=== PATIENT | female | born 1940 | race Caucasian/White ===

== ENCOUNTER → 2017-07-27 10:49 | Outpatient (CLI) | payer MEDICARE, OTHER, SELFPAY | PROVIDERS: PCP Family Medicine; Visit Provider Internal Medicine | DX: S81.802A Unspecified open wound, left lower leg, initial encounter (principal); T81.31XA Disruption of external operation (surgical) wound, not elsewhere classified, initial encounter | CPT/HCPCS: 11042; 97607 ==

== ENCOUNTER → 2017-08-02 10:17 | Outpatient (CLI) | payer MEDICARE, OTHER, SELFPAY | PROVIDERS: PCP Family Medicine; Visit Provider Internal Medicine | DX: S81.802A Unspecified open wound, left lower leg, initial encounter (principal); T81.31XA Disruption of external operation (surgical) wound, not elsewhere classified, initial encounter | CPT/HCPCS: 11042; 97607 ==

== ENCOUNTER → 2017-08-08 08:54 | Outpatient (CLI) | payer MEDICARE, OTHER, SELFPAY | PROVIDERS: PCP Family Medicine; Visit Provider Internal Medicine | DX: S81.802A Unspecified open wound, left lower leg, initial encounter (principal); T81.31XA Disruption of external operation (surgical) wound, not elsewhere classified, initial encounter | CPT/HCPCS: 11042; 97607 ==

== ENCOUNTER → 2017-08-15 10:19 | Outpatient (CLI) | payer MEDICARE, OTHER, SELFPAY | PROVIDERS: PCP Family Medicine; Visit Provider Internal Medicine | DX: S81.802A Unspecified open wound, left lower leg, initial encounter (principal); T81.31XA Disruption of external operation (surgical) wound, not elsewhere classified, initial encounter | CPT/HCPCS: 11042; 97607 ==

== ENCOUNTER → 2017-08-22 10:08 | Outpatient (CLI) | payer MEDICARE, OTHER, SELFPAY ==
--- NOTE | 2017-08-22 | OV.WND_ITS ---
Progress Note Details Patient Name: Clementina Roque Patient Number: [id number] PatientPatientDate: 08/22/2017 Clinician: Catherine Kerr Clinician Cosigner: Shobha Avalos Physician / Specialty Development Consultant: Tigre Vela SUBJECTIVE Chief Complaint This information was obtained from the patient Surgical wound on left lower leg. Allergies peanut (Severity: Severe, Reaction: anaphylaxis), codeine (Reaction: unknown) HPI This information was obtained from the patient 08/22/17. Seen by Dr. Vela. The patient does not report pain or significant drainage associated with the left lower leg surgical wound since her last visit. 08/15/17. Seen by Dr. Vela. The patient does not report pain or significant drainage associated with the left lower leg surgical wound since her last visit. 08/08/17. Seen by Dr. Vela. The patient does not report pain or significant drainage associated with the left lower leg surgical wound since her last visit. 08/02/17. Seen by Dr. Vela. The patient does not report pain or significant drainage associated with the left lower leg surgical wound since her last visit. 07/27/17. Seen by Dr. Vela. The patient does not report pain or significant drainage associated with the left lower leg surgical wound since her last visit. 07/21/2017. Seen by Dr. Vela. The patient is new to our clinic and presents with a left anterior lower leg surgical wound following a Moh's procedure yesterday for excision of a squamous cell carcinoma. She has been referred to our center as this wound will heal by secondary intention due to its size. She does not report significant pain or drainage and does not have a history of diabetes nor PAD. Family History This information was obtained from the patient Unknown History - Maternal Grandparents, Father, Paternal Grandparents, Cancer - Mother, Lung Disease - Mother Social History This information was obtained from the patient Never smoker, Alcohol Use - None, Caffeine Use - 4/day, Children - 4, Lives in - Private home, Marital Status - , Retired Past Medical History This information was obtained from the patient Patient has a medical history of: Atrial fibrillation Arthritis Gout Hypertension Hypercholesterolemia History of Squamous cell carcinoma (multiple) History of Basal cell carcinoma (multiple) Neuropathy Surgical History This information was obtained from the patient Patient has a surgical history of: Mohs procedure (squamous cell carcinoma- left leg) Cholecystectomy Tubal ligation Complaints and Symptoms This information was obtained from the patient Patient complains of: General Notes: I have reviewed and concur with the Review of Systems and Past Family Social History documents completed by the clinician, I have reviewed and concur with the Wound Assessment document completed by the clinician Cardiovascular (Central): Irregular heart beat Cardiovascular (Central/Peripheral): Lower extremity (leg) swelling Hematologic/Lymphatic: Bleeding Tendency Integumentary (Hair/Skin/Nails): Open Sore Prior Wound History: Bleeding Patient denies complaints or symptoms related to: Cardiovascular (Central/Peripheral): Intermittent Claudication, Lower extremity (leg) resting pain Constitutional Symptoms (General Health): Fever Ear/Nose/Mouth/Throat: Hearing Loss / Aid Hematologic/Lymphatic: Bleeding / Clotting Disorders Musculoskeletal: Assistive Devices Neurological: Loss of Protective Sensation Prior Wound History: Pain Psychiatric: Memory Loss Respiratory: Oxygen Use, Shortness of Breath OBJECTIVE Constitutional BP elevated; Afebrile; Alert and in no distress. Well developed. Alert. Clean appearing.. Height/Length: 67 in (170.18 cm), Weight: 193.5 lbs (87.95 kgs), BMI: 30.3, Temperature: 96.6 ?F (35.89 ?C), Pulse: 62 bpm, Respiratory Rate: 18 breaths/min, Blood Pressure: 173/85 mmHg, Pulse Oximetry: 96 %. Ears, Nose, Mouth, and Throat: No clinically significant hearing loss on informal examination. Cardiovascular: Affected extremity exhibits no peripheral edema or cyanosis, is warm, and is well perfused. Capillary refill is less than 2 seconds. Integumentary (Hair, Skin) No periwound erythema, warmth, or significant drainage. No periwound rashes appreciated or noted otherwise.. Refer to appropriate clinician wound documentation for this visit; left lower leg wound extends to subcut with base partially covered with pink granulation, remainder fibrin and slough; improved in terms of size and epithelialization. Wound #1 Left Leg is an acute Full Thickness Surgical Wound and has received a status of Not Healed. Subsequent wound encounter measurements are 2cm length x 2.1cm width x 0.1cm depth, with an area of 4.2 sq cm and a volume of 0.42 cubic cm. Adipose is exposed. Hypergranulation was noted. No tunneling has been noted. No sinus tract has been noted. No undermining has been noted. There is a moderate amount of sero-sanguineous drainage noted which has no odor. The patient reports no wound pain due to the wound being insensate. The wound margin is attached. Wound bed has Yes epithelialization, No eschar, Yes slough, Yes bright red, pink, firm granulation. The periwound skin texture is normal. The periwound skin moisture is normal. The periwound skin color is normal. The temperature of the periwound skin is WNL. Periwound skin does not exhibit signs or symptoms of infection. Local Pulse is Palpable. Neurological: Cranial nerves grossly intact with symmetric function normal by informal observation.. ASSESSMENT Active Problems ICD-10 (Encounter Diagnosis) S81.802D - Unspecified open wound, left lower leg, subsequent encounter (Encounter Diagnosis) T81.31XD - Disruption of external operation (surgical) wound, not elsewhere classified, subsequent encounter PROCEDURES Wound #1 Wound #1 (Surgical Wound) is located on the left leg. A skin/subcutaneous tissue level surgical debridement with a total area debrided of 4.2 sq cm was performed by Tigre Vela MD. Subcutaneous was removed along with devitalized tissue: slough. The following instrument(s) were used: curette. Pain control was achieved using 4% Lido. A time out was conducted prior to the start of the procedure. A minimal amount of bleeding was controlled with pressure. The procedure was tolerated well with a loss of sensation throughout and a loss of sensation following the procedure. Post Debridement Measurements: 2cm length x 2.1cm width x 0.2cm depth; with an area of 4.2 sq cm and a volume of 0.84 cubic cm; Wound #1 (Surgical Wound) is located on the left leg. A Disposable Wound Vac Application < 50 Sq Cm procedure was performed for the lower left extremity by Tigre Vela MD. A time out was conducted prior to the start of the procedure. The procedure was tolerated well. General Notes: JEFF applied 4x8. Additional Information Muscle fascia or bone removed and sent to pathology?: No PLAN Wound Orders: Wound #1 Left Leg Anesthetic Topical Xylocaine to wound bed. - In clinic only. Cleanser Cleanse Wound: - Normal saline and gauze in clinic. May Shower With Negative Pressure - Keep dry use shower boot. May disconnect JEFF during shower then reconnect. Dressings Cover and secure with: - JEFF 4x8. Change Dressing: - Leave in place until next visit. Additional Orders: Follow-Up Appointments Return Appointment: - - One week for JEFF change. Other information: If you develop fever, chills, increased pain, drainage, redness or swelling please call our office. If after hours, respond to the ER. Should you experience any significant changes in your wound(s) or have any questions regarding your home care instructions please contact the wound center @ [phone]. If after hours, contact your primary care physician or go to the hospital emergency room. Scribing Attestation I attest, as the nurse, that I scribed these orders for the physician. I've reviewed the clinician's documentation and agree with the evaluation and plan as written. In addition the patient's wound demonstrates evidence of non-viable devitalized tissue which will continue to benefit from sharp debridement to help promote granulation and expedite healing. Negative pressure wound therapy will be utilized to facilitate granulation and removal of exudate and infectious material with the goal of expediting wound healing. Electronic Signature(s) Signed By: Date: Tigre Vela MD 08/22/2017 14:23:23 Entered By: Tigre Vela on 08/22/2017 14:17:56
== END ==
PROVIDERS: PCP Family Medicine; Visit Provider Internal Medicine
DX: S81.802A Unspecified open wound, left lower leg, initial encounter (principal); T81.31XA Disruption of external operation (surgical) wound, not elsewhere classified, initial encounter
CPT/HCPCS: 11042; 97607

== ENCOUNTER → 2017-08-29 15:30 | Outpatient (CLI) | payer MEDICARE, OTHER, SELFPAY ==
--- NOTE | 2017-08-29 | OV.WND_ITS ---
Progress Note Details Patient Name: Clementina Roque Patient Number: [id number] PatientPatientDate: 08/29/2017 Clinician: Layla Crain Clinician Cosigner: Shobha Avalos Physician / Biometrics Instructor: Dhruv Piedra SUBJECTIVE Chief Complaint This information was obtained from the patient Surgical wound on left lower leg. Allergies peanut (Severity: Severe, Reaction: anaphylaxis), codeine (Reaction: unknown) HPI This information was obtained from the patient 08/29/17. Seen by Jose Manuel Piedra PA-C. The patient reports no increase in drainage form the left lower leg wound. 08/22/17. Seen by Dr. Vela. The patient does not report pain or significant drainage associated with the left lower leg surgical wound since her last visit. 08/15/17. Seen by Dr. Vela. The patient does not report pain or significant drainage associated with the left lower leg surgical wound since her last visit. 08/08/17. Seen by Dr. Vela. The patient does not report pain or significant drainage associated with the left lower leg surgical wound since her last visit. 08/02/17. Seen by Dr. Vela. The patient does not report pain or significant drainage associated with the left lower leg surgical wound since her last visit. 07/27/17. Seen by Dr. Vela. The patient does not report pain or significant drainage associated with the left lower leg surgical wound since her last visit. 07/21/2017. Seen by Dr. Vela. The patient is new to our clinic and presents with a left anterior lower leg surgical wound following a Moh's procedure yesterday for excision of a squamous cell carcinoma. She has been referred to our center as this wound will heal by secondary intention due to its size. She does not report significant pain or drainage and does not have a history of diabetes nor PAD. Family History This information was obtained from the patient Unknown History - Maternal Grandparents, Father, Paternal Grandparents, Cancer - Mother, Lung Disease - Mother Social History This information was obtained from the patient Never smoker, Alcohol Use - None, Caffeine Use - 4/day, Children - 4, Lives in - Private home, Marital Status - , Retired Past Medical History This information was obtained from the patient Patient has a medical history of: Atrial fibrillation Arthritis Gout Hypertension Hypercholesterolemia History of Squamous cell carcinoma (multiple) History of Basal cell carcinoma (multiple) Neuropathy Complaints and Symptoms This information was obtained from the patient Patient complains of: General Notes: I have reviewed and concur with the Review of Systems and Past Family Social History documents completed by the clinician, I have reviewed and concur with the Wound Assessment document completed by the clinician Cardiovascular (Central): Irregular heart beat Cardiovascular (Central/Peripheral): Lower extremity (leg) swelling Hematologic/Lymphatic: Bleeding Tendency Integumentary (Hair/Skin/Nails): Open Sore Prior Wound History: Bleeding Patient denies complaints or symptoms related to: Cardiovascular (Central/Peripheral): Intermittent Claudication, Lower extremity (leg) resting pain Constitutional Symptoms (General Health): Fever Ear/Nose/Mouth/Throat: Hearing Loss / Aid Hematologic/Lymphatic: Bleeding / Clotting Disorders Musculoskeletal: Assistive Devices Neurological: Loss of Protective Sensation Prior Wound History: Pain Psychiatric: Memory Loss Respiratory: Oxygen Use, Shortness of Breath OBJECTIVE Constitutional Vital signs reviewed and noted. Well developed, lucid, and in no acute distress. . Height/Length: 67 in (170.18 cm), Weight: 193.5 lbs (87.95 kgs), BMI: 30.3, Temperature: 98.2 ?F (36.78 ?C), Pulse: 68 bpm, Respiratory Rate: 18 breaths/min, Blood Pressure: 141/87 mmHg, Pulse Oximetry: 96 %. Eyes: Conjunctiva clear and without icterus. Pupils are equal and round; EOM's intact. Ears, Nose, Mouth, and Throat: Grossly intact. Respiratory: No respiratory distress. Even respirations and without use of accessory muscles.. Integumentary (Hair, Skin) No erythema, warmth, rash, blistering, or drainage in the periwound area/s. Refer to appropriate clinician wound documentation for this visit. Ulcer extends to level of skin. . Wound #1 Left Leg is an acute Full Thickness Surgical Wound and has received a status of Not Healed. Subsequent wound encounter measurements are 1.9cm length x 2cm width x 0.2cm depth, with an area of 3.8 sq cm and a volume of 0.76 cubic cm. Adipose is exposed. Hypergranulation was noted. No tunneling has been noted. No sinus tract has been noted. No undermining has been noted. There is a moderate amount of sero-sanguineous drainage noted which has no odor. The patient reports no wound pain due to the wound being insensate. The wound margin is attached. Wound bed has Yes epithelialization, No eschar, Yes slough, Yes bright red, pink, firm granulation. The periwound skin texture is normal. The periwound skin moisture is normal. The periwound skin color is normal. The temperature of the periwound skin is WNL. Periwound skin does not exhibit signs or symptoms of infection. Local Pulse is Palpable. Psychiatric: Judgement and insight: Normal affect with normal thought pattern. Alert and oriented 3/3. Memory grossly intact.. Normal affect. Mood appropriate.. ASSESSMENT Active Problems ICD-10 (Encounter Diagnosis) S81.802D - Unspecified open wound, left lower leg, subsequent encounter (Encounter Diagnosis) T81.31XD - Disruption of external operation (surgical) wound, not elsewhere classified, subsequent encounter PLAN Wound Orders: Wound #1 Left Leg Anesthetic Topical Xylocaine to wound bed. - In clinic only. Cleanser Cleanse Wound: - Normal saline and gauze in clinic. May Shower. - Please continue to use cast protector when showering. Dressings Cover and secure with: - Aquacel bordered foam. Change Dressing: - Every other day. Additional Orders: Follow-Up Appointments Return Appointment: - - One week. Other information: If you develop fever, chills, increased pain, drainage, redness or swelling please call our office. If after hours, respond to the ER. Should you experience any significant changes in your wound(s) or have any questions regarding your home care instructions please contact the wound center @ [phone]. If after hours, contact your primary care physician or go to the hospital emergency room. Scribing Attestation I attest, as the nurse, that I scribed these orders for the physician. I've reviewed the clinician's documentation and agree with the evaluation and plan as written. In addition I am discontinuing NPWT today as the tissue in the wound bed is bordering on hypergranulation. Electronic Signature(s) Signed By: Date: Jose Manuel Piedra 09/03/2017 13:49:03 Entered By: Jose Manuel Piedra on 09/03/2017 13:23:49
== END ==
PROVIDERS: PCP Family Medicine; Visit Provider Physician Assistant
DX: S81.802D Unspecified open wound, left lower leg, subsequent encounter (principal); T81.31XD Disruption of external operation (surgical) wound, not elsewhere classified, subsequent encounter
CPT/HCPCS: 99212

== ENCOUNTER → 2017-09-05 10:04 | Outpatient (CLI) | payer MEDICARE, OTHER, SELFPAY ==
--- NOTE | 2017-09-05 | OV.WND_ITS ---
Progress Note Details Patient Name: Clementina Roque Patient Number: [id number] PatientPatientDate: 09/05/2017 Clinician: Kimmie Case Clinician Cosigner: Catherine Kerr Physician / Trim Attacher: Tigre Vela SUBJECTIVE Chief Complaint This information was obtained from the patient Surgical wound on left lower leg. Allergies peanut (Severity: Severe, Reaction: anaphylaxis), codeine (Reaction: unknown) HPI This information was obtained from the patient 09/05/17. Seen by Dr. Vela. The patient does not report pain or significant drainage associated with the left lower leg surgical wound since her last visit. 08/29/17. Seen by Jose Manuel Piedra PA-C. The patient reports no increase in drainage form the left lower leg wound. 08/22/17. Seen by Dr. Vela. The patient does not report pain or significant drainage associated with the left lower leg surgical wound since her last visit. 08/15/17. Seen by Dr. Vela. The patient does not report pain or significant drainage associated with the left lower leg surgical wound since her last visit. 08/08/17. Seen by Dr. Vela. The patient does not report pain or significant drainage associated with the left lower leg surgical wound since her last visit. 08/02/17. Seen by Dr. Vela. The patient does not report pain or significant drainage associated with the left lower leg surgical wound since her last visit. 07/27/17. Seen by Dr. Vela. The patient does not report pain or significant drainage associated with the left lower leg surgical wound since her last visit. 07/21/2017. Seen by Dr. Vela. The patient is new to our clinic and presents with a left anterior lower leg surgical wound following a Moh's procedure yesterday for excision of a squamous cell carcinoma. She has been referred to our center as this wound will heal by secondary intention due to its size. She does not report significant pain or drainage and does not have a history of diabetes nor PAD. Past Medical History This information was obtained from the patient Patient has a medical history of: Atrial fibrillation Arthritis Gout Hypertension Hypercholesterolemia History of Squamous cell carcinoma (multiple) History of Basal cell carcinoma (multiple) Neuropathy Complaints and Symptoms This information was obtained from the patient Patient complains of: General Notes: I have reviewed and concur with the Review of Systems and Past Family Social History documents completed by the clinician, I have reviewed and concur with the Wound Assessment document completed by the clinician Cardiovascular (Central): Irregular heart beat Cardiovascular (Central/Peripheral): Lower extremity (leg) swelling Hematologic/Lymphatic: Bleeding Tendency Integumentary (Hair/Skin/Nails): Open Sore Prior Wound History: Bleeding Patient denies complaints or symptoms related to: Cardiovascular (Central/Peripheral): Intermittent Claudication, Lower extremity (leg) resting pain Constitutional Symptoms (General Health): Fever Ear/Nose/Mouth/Throat: Hearing Loss / Aid Hematologic/Lymphatic: Bleeding / Clotting Disorders Musculoskeletal: Assistive Devices Neurological: Loss of Protective Sensation Prior Wound History: Pain Psychiatric: Memory Loss Respiratory: Oxygen Use, Shortness of Breath OBJECTIVE Constitutional BP elevated; Afebrile; Alert and in no distress. Well developed. Alert. Clean appearing.. Height/Length: 67 in (170.18 cm), Weight: 197.1 lbs (89.59 kgs), BMI: 30.9, Temperature: 97.2 ?F (36.22 ?C), Pulse: 60 bpm, Respiratory Rate: 18 breaths/min, Blood Pressure: 152/77 mmHg, Pulse Oximetry: 99 %. Ears, Nose, Mouth, and Throat: No clinically significant hearing loss on informal examination. Respiratory: No respiratory distress. Even respirations and without use of accessory muscles.. Cardiovascular: Pedal pulses 2+ on affected limb. Affected extremity exhibits no peripheral edema or cyanosis, is warm, and is well perfused. Capillary refill is less than 2 seconds. Integumentary (Hair, Skin) Mild periwound erythema without warmth. Refer to appropriate clinician wound documentation for this visit; left lower leg wound extends to subcut with base partially covered with pink granulation, remainder fibrin and slough. Wound #1 Left Leg is an acute Full Thickness Surgical Wound and has received a status of Not Healed. Subsequent wound encounter measurements are 1.2cm length x 1.1cm width x 0.1cm depth, with an area of 1.32 sq cm and a volume of 0.132 cubic cm. Hypergranulation was noted. No tunneling has been noted. No sinus tract has been noted. No undermining has been noted. There is a small amount of sero-sanguineous drainage noted which has no odor. The patient reports no wound pain due to the wound being insensate. The wound margin is attached. Wound bed has Yes epithelialization, No eschar, Yes slough, Yes bright red, pink, firm granulation. The periwound skin texture is normal. The periwound skin moisture is normal. The periwound skin color is normal. The temperature of the periwound skin is WNL. Periwound skin does not exhibit signs or symptoms of infection. Local Pulse is Palpable. Neurological: Cranial nerves grossly intact with symmetric function normal by informal observation.. ASSESSMENT Active Problems ICD-10 (Encounter Diagnosis) S81.802D - Unspecified open wound, left lower leg, subsequent encounter (Encounter Diagnosis) T81.31XD - Disruption of external operation (surgical) wound, not elsewhere classified, subsequent encounter (Encounter Diagnosis) L92.9 - Granulomatous disorder of the skin and subcutaneous tissue, unspecified PROCEDURES Wound #1 Wound #1 (Surgical Wound) is located on the left leg. A Chemical Cauterization procedure was performed by Tigre Vela MD. General Notes: Silver Nitrate applied. PLAN Wound Orders: Wound #1 Left Leg Anesthetic Topical Xylocaine to wound bed. - In clinic only. Cleanser Cleanse Wound: - Normal saline and gauze in clinic. May Shower. - Please continue to use cast protector when showering. Dressings Cover and secure with: - Aquacel bordered foam. Change Dressing: - Every other day. Additional Orders: Follow-Up Appointments Return Appointment: - - One week. Other information: If you develop fever, chills, increased pain, drainage, redness or swelling please call our office. If after hours, respond to the ER. Should you experience any significant changes in your wound(s) or have any questions regarding your home care instructions please contact the wound center @ [phone]. If after hours, contact your primary care physician or go to the hospital emergency room. Scribing Attestation I attest, as the nurse, that I scribed these orders for the physician. I've reviewed the clinician's documentation and agree with the evaluation and plan as written. In addition the presence of hypergranulation tissue in the wound was not an expected finding and was cauterized with silver nitrate. The patient's dressing regimen will be modified appropriately to attempt to reduce the formation of further hypergranulation tissue. Electronic Signature(s) Signed By: Date: Tigre Vela MD 09/06/2017 08:47:14 Entered By: Tigre Vela on 09/05/2017 12:07:03
== END ==
PROVIDERS: PCP Family Medicine; Visit Provider Internal Medicine
DX: S81.802A Unspecified open wound, left lower leg, initial encounter (principal); T81.31XA Disruption of external operation (surgical) wound, not elsewhere classified, initial encounter; L92.9 Granulomatous disorder of the skin and subcutaneous tissue, unspecified
CPT/HCPCS: 17250

== ENCOUNTER → 2017-09-12 10:57 | Outpatient (CLI) | payer MEDICARE, OTHER, SELFPAY ==
--- NOTE | 2017-09-12 | OV.WND_ITS ---
Progress Note Details Patient Name: Clementina Roque Patient Number: [id number] PatientPatientDate: 09/12/2017 Clinician: Shobha Avalos Clinician Cosigner: Catherine Kerr Physician / Graphic Manager: Tigre Vela SUBJECTIVE Chief Complaint This information was obtained from the patient Surgical wound on left lower leg. Allergies peanut (Severity: Severe, Reaction: anaphylaxis), codeine (Reaction: unknown) HPI This information was obtained from the patient 09/12/17. Seen by Dr. Vela. The patient does not report pain or significant drainage associated with the left lower leg surgical wound since her last visit. 09/05/17. Seen by Dr. Vela. The patient does not report pain or significant drainage associated with the left lower leg surgical wound since her last visit. 08/29/17. Seen by Jose Manuel Piedra PA-C. The patient reports no increase in drainage form the left lower leg wound. 08/22/17. Seen by Dr. Vela. The patient does not report pain or significant drainage associated with the left lower leg surgical wound since her last visit. 08/15/17. Seen by Dr. Vela. The patient does not report pain or significant drainage associated with the left lower leg surgical wound since her last visit. 08/08/17. Seen by Dr. Vela. The patient does not report pain or significant drainage associated with the left lower leg surgical wound since her last visit. 08/02/17. Seen by Dr. Vela. The patient does not report pain or significant drainage associated with the left lower leg surgical wound since her last visit. 07/27/17. Seen by Dr. Vela. The patient does not report pain or significant drainage associated with the left lower leg surgical wound since her last visit. 07/21/2017. Seen by Dr. Vela. The patient is new to our clinic and presents with a left anterior lower leg surgical wound following a Moh's procedure yesterday for excision of a squamous cell carcinoma. She has been referred to our center as this wound will heal by secondary intention due to its size. She does not report significant pain or drainage and does not have a history of diabetes nor PAD. Past Medical History This information was obtained from the patient Patient has a medical history of: Atrial fibrillation Arthritis Gout Hypertension Hypercholesterolemia History of Squamous cell carcinoma (multiple) History of Basal cell carcinoma (multiple) Neuropathy Complaints and Symptoms This information was obtained from the patient Patient complains of: General Notes: I have reviewed and concur with the Review of Systems and Past Family Social History documents completed by the clinician, I have reviewed and concur with the Wound Assessment document completed by the clinician Cardiovascular (Central): Irregular heart beat Cardiovascular (Central/Peripheral): Lower extremity (leg) swelling Hematologic/Lymphatic: Bleeding Tendency Integumentary (Hair/Skin/Nails): Open Sore Prior Wound History: Bleeding Patient denies complaints or symptoms related to: Cardiovascular (Central/Peripheral): Intermittent Claudication, Lower extremity (leg) resting pain Constitutional Symptoms (General Health): Fever Ear/Nose/Mouth/Throat: Hearing Loss / Aid Hematologic/Lymphatic: Bleeding / Clotting Disorders Musculoskeletal: Assistive Devices Neurological: Loss of Protective Sensation Prior Wound History: Pain Psychiatric: Memory Loss Respiratory: Oxygen Use, Shortness of Breath OBJECTIVE Constitutional BP elevated; Afebrile; Alert and in no distress. Well developed. Alert. Clean appearing.. Height/Length: 67 in (170.18 cm), Weight: 197.3 lbs (89.68 kgs), BMI: 30.9, Temperature: 98.0 ?F (36.67 ?C), Pulse: 61 bpm, Respiratory Rate: 18 breaths/min, Blood Pressure: 157/80 mmHg, Pulse Oximetry: 97 %. Ears, Nose, Mouth, and Throat: No clinically significant hearing loss on informal examination. Respiratory: No respiratory distress. Even respirations and without use of accessory muscles.. Integumentary (Hair, Skin) No periwound erythema, warmth, or significant drainage. No periwound rashes appreciated or noted otherwise.. Refer to appropriate clinician wound documentation for this visit; left lower leg wound extends to subcut with base covered with red hypergranulation, remainder fibrin and slough. Wound #1 Left Leg is an acute Full Thickness Surgical Wound and has received a status of Not Healed. Subsequent wound encounter measurements are 1cm length x 1cm width x 0.1cm depth, with an area of 1 sq cm and a volume of 0.1 cubic cm. Hypergranulation was noted. No tunneling has been noted. No sinus tract has been noted. No undermining has been noted. There is a scant amount of sero-sanguineous drainage noted which has no odor. The patient reports no wound pain due to the wound being insensate. The wound margin is attached. Wound bed has Yes epithelialization, No eschar, Yes slough, Yes bright red, pink , firm granulation. The periwound skin texture is normal. The periwound skin moisture is normal. The periwound skin color is normal. The temperature of the periwound skin is WNL. Periwound skin does not exhibit signs or symptoms of infection. Local Pulse is Palpable. ASSESSMENT Active Problems ICD-10 (Encounter Diagnosis) S81.802D - Unspecified open wound, left lower leg, subsequent encounter (Encounter Diagnosis) T81.31XD - Disruption of external operation (surgical) wound, not elsewhere classified, subsequent encounter (Encounter Diagnosis) L92.9 - Granulomatous disorder of the skin and subcutaneous tissue, unspecified PROCEDURES Wound #1 Wound #1 (Surgical Wound) is located on the left leg. A Chemical Cauterization procedure was performed by Tigre Vela MD. General Notes: Silver Nitrate applied. PLAN Wound Orders: Wound #1 Left Leg Anesthetic Topical Xylocaine to wound bed. - In clinic only. Cleanser Cleanse Wound: - Normal saline and gauze in clinic. May Shower. - Please continue to use cast protector when showering. Dressings Cover and secure with: - bordered foam. Change Dressing: - Every other day. Additional Orders: Follow-Up Appointments Return Appointment: - - One week. Other information: If you develop fever, chills, increased pain, drainage, redness or swelling please call our office. If after hours, respond to the ER. Should you experience any significant changes in your wound(s) or have any questions regarding your home care instructions please contact the wound center @ [phone]. If after hours, contact your primary care physician or go to the hospital emergency room. Scribing Attestation I attest, as the nurse, that I scribed these orders for the physician. In addition the presence of hypergranulation tissue in the wound was not an expected finding and was cauterized with silver nitrate. The patient's dressing regimen will be modified appropriately to attempt to reduce the formation of further hypergranulation tissue. Electronic Signature(s) Signed By: Date: Tigre Vela MD 09/14/2017 08:46:21 Entered By: Tigre Vela on 09/12/2017 09:42:26
== END ==
PROVIDERS: PCP Family Medicine; Visit Provider Internal Medicine
DX: S81.802D Unspecified open wound, left lower leg, subsequent encounter (principal); T81.31XD Disruption of external operation (surgical) wound, not elsewhere classified, subsequent encounter; L92.9 Granulomatous disorder of the skin and subcutaneous tissue, unspecified
CPT/HCPCS: 17250

== ENCOUNTER → 2017-09-20 09:03 | Outpatient (CLI) | payer MEDICARE, OTHER, SELFPAY ==
--- NOTE | 2017-09-20 | OV.WND_ITS ---
Progress Note Details Patient Name: Clementina Roque Patient Number: [id number] PatientPatientDate: 09/20/2017 Clinician: Kimmie Case Physician / Fire Ranger: Tigre Vela SUBJECTIVE Chief Complaint This information was obtained from the patient Surgical wound on left lower leg. Allergies peanut (Severity: Severe, Reaction: anaphylaxis), codeine (Reaction: unknown) HPI This information was obtained from the patient 09/20/17. Seen by Dr. Vela. The patient does not report pain or significant drainage associated with the left lower leg surgical wound since her last visit. 09/12/17. Seen by Dr. Vela. The patient does not report pain or significant drainage associated with the left lower leg surgical wound since her last visit. 09/05/17. Seen by Dr. Vela. The patient does not report pain or significant drainage associated with the left lower leg surgical wound since her last visit. 08/29/17. Seen by Jose Manuel Piedra PA-C. The patient reports no increase in drainage form the left lower leg wound. 08/22/17. Seen by Dr. Vela. The patient does not report pain or significant drainage associated with the left lower leg surgical wound since her last visit. 08/15/17. Seen by Dr. Vela. The patient does not report pain or significant drainage associated with the left lower leg surgical wound since her last visit. 08/08/17. Seen by Dr. Vela. The patient does not report pain or significant drainage associated with the left lower leg surgical wound since her last visit. 08/02/17. Seen by Dr. Vela. The patient does not report pain or significant drainage associated with the left lower leg surgical wound since her last visit. 07/27/17. Seen by Dr. Vela. The patient does not report pain or significant drainage associated with the left lower leg surgical wound since her last visit. 07/21/2017. Seen by Dr. Vela. The patient is new to our clinic and presents with a left anterior lower leg surgical wound following a Moh's procedure yesterday for excision of a squamous cell carcinoma. She has been referred to our center as this wound will heal by secondary intention due to its size. She does not report significant pain or drainage and does not have a history of diabetes nor PAD. Past Medical History This information was obtained from the patient Patient has a medical history of: Atrial fibrillation Arthritis Gout Hypertension Hypercholesterolemia History of Squamous cell carcinoma (multiple) History of Basal cell carcinoma (multiple) Neuropathy Complaints and Symptoms This information was obtained from the patient Patient complains of: General Notes: I have reviewed and concur with the Review of Systems and Past Family Social History documents completed by the clinician, I have reviewed and concur with the Wound Assessment document completed by the clinician Cardiovascular (Central): Irregular heart beat Cardiovascular (Central/Peripheral): Lower extremity (leg) swelling Hematologic/Lymphatic: Bleeding Tendency Integumentary (Hair/Skin/Nails): Open Sore Prior Wound History: Bleeding Patient denies complaints or symptoms related to: Cardiovascular (Central/Peripheral): Intermittent Claudication, Lower extremity (leg) resting pain Constitutional Symptoms (General Health): Fever Ear/Nose/Mouth/Throat: Hearing Loss / Aid Hematologic/Lymphatic: Bleeding / Clotting Disorders Musculoskeletal: Assistive Devices Neurological: Loss of Protective Sensation Prior Wound History: Pain Psychiatric: Memory Loss Respiratory: Oxygen Use, Shortness of Breath OBJECTIVE Constitutional BP elevated; Afebrile; Alert and in no distress. Well developed. Alert. Clean appearing.. Height/Length: 67 in (170.18 cm), Weight: 197.3 lbs (89.68 kgs), BMI: 30.9, Temperature: 98.1 ?F (36.72 ?C), Pulse: 57 bpm, Respiratory Rate: 17 breaths/min, Blood Pressure: 175/80 mmHg, Pulse Oximetry: 97 %. Ears, Nose, Mouth, and Throat: No clinically significant hearing loss on informal examination. Integumentary (Hair, Skin) No periwound erythema, warmth, or significant drainage. No periwound rashes appreciated or noted otherwise.. Refer to appropriate clinician wound documentation for this visit; left lower leg wound extends to subcut with base mostly covered with red hypergranulation, remainder fibrin and slough. Wound #1 Left Leg is an acute Full Thickness Surgical Wound and has received a status of Not Healed. Subsequent wound encounter measurements are 0.9cm length x 0.8cm width x 0.1cm depth, with an area of 0.72 sq cm and a volume of 0.072 cubic cm. Hypergranulation was noted. No tunneling has been noted. No sinus tract has been noted. No undermining has been noted. There is a scant amount of seropurulent drainage noted which has no odor. The patient reports no wound pain due to the wound being insensate. The wound margin is attached. Wound bed has Yes epithelialization, No eschar, Yes slough, Yes bright red, pink , firm granulation. The periwound skin texture is normal. The periwound skin moisture is normal. The periwound skin color is normal. The temperature of the periwound skin is WNL. Periwound skin does not exhibit signs or symptoms of infection. Local Pulse is Palpable. Neurological: Cranial nerves grossly intact with symmetric function normal by informal observation.. ASSESSMENT Active Problems ICD-10 (Encounter Diagnosis) S81.802D - Unspecified open wound, left lower leg, subsequent encounter (Encounter Diagnosis) T81.31XD - Disruption of external operation (surgical) wound, not elsewhere classified, subsequent encounter (Encounter Diagnosis) L92.9 - Granulomatous disorder of the skin and subcutaneous tissue, unspecified PROCEDURES Wound #1 Wound #1 (Surgical Wound) is located on the left leg. A Chemical Cauterization procedure was performed by Tigre Vela MD. General Notes: Silver Nitrate applied. PLAN Wound Orders: Wound #1 Left Leg Anesthetic Topical Xylocaine to wound bed. - In clinic only. Cleanser Cleanse Wound: - Normal saline and gauze in clinic. May Shower. - Please continue to use cast protector when showering. Dressings Cover and secure with: - bordered foam. Change Dressing: - Every other day. Additional Orders: Follow-Up Appointments Return Appointment: - - Two week Other information: If you develop fever, chills, increased pain, drainage, redness or swelling please call our office. If after hours, respond to the ER. Should you experience any significant changes in your wound(s) or have any questions regarding your home care instructions please contact the wound center @ [phone]. If after hours, contact your primary care physician or go to the hospital emergency room. Scribing Attestation I attest, as the nurse, that I scribed these orders for the physician. I've reviewed the clinician's documentation and agree with the evaluation and plan as written. In addition the presence of hypergranulation tissue in the wound was not an expected finding and was cauterized with silver nitrate. The patient's dressing regimen will be modified appropriately to attempt to reduce the formation of further hypergranulation tissue. Electronic Signature(s) Signed By: Date: Tigre Vela MD 09/20/2017 16:09:26 Entered By: Tigre Vela on 09/20/2017 11:28:50
== END ==
PROVIDERS: PCP Family Medicine; Visit Provider Internal Medicine
DX: S81.802A Unspecified open wound, left lower leg, initial encounter (principal); T81.31XA Disruption of external operation (surgical) wound, not elsewhere classified, initial encounter; L92.9 Granulomatous disorder of the skin and subcutaneous tissue, unspecified
CPT/HCPCS: 17250

== ENCOUNTER → 2017-10-04 11:17 | Outpatient (CLI) | payer MEDICARE, OTHER, SELFPAY ==
--- NOTE | 2017-10-04 | OV.WND_ITS ---
Progress Note Details Patient Name: Clementina Roque Patient Number: [id number] PatientPatientDate: 10/04/2017 Clinician: Catherine Kerr Clinician Cosigner: Shobha Avalos Physician / Crm Marketing Manager: Tigre Vela SUBJECTIVE Chief Complaint This information was obtained from the patient Surgical wound on left lower leg. Allergies peanut (Severity: Severe, Reaction: anaphylaxis), codeine (Reaction: unknown) HPI This information was obtained from the patient 10/04/17. Seen by Dr. Vela. The patient does not report pain or significant drainage associated with the left lower leg surgical wound since her last visit. 09/20/17. Seen by Dr. Vela. The patient does not report pain or significant drainage associated with the left lower leg surgical wound since her last visit. 09/12/17. Seen by Dr. Vela. The patient does not report pain or significant drainage associated with the left lower leg surgical wound since her last visit. 09/05/17. Seen by Dr. Vela. The patient does not report pain or significant drainage associated with the left lower leg surgical wound since her last visit. 08/29/17. Seen by Jose Manuel Piedra PA-C. The patient reports no increase in drainage form the left lower leg wound. 08/22/17. Seen by Dr. Vela. The patient does not report pain or significant drainage associated with the left lower leg surgical wound since her last visit. 08/15/17. Seen by Dr. Vela. The patient does not report pain or significant drainage associated with the left lower leg surgical wound since her last visit. 08/08/17. Seen by Dr. Vela. The patient does not report pain or significant drainage associated with the left lower leg surgical wound since her last visit. 08/02/17. Seen by Dr. Vela. The patient does not report pain or significant drainage associated with the left lower leg surgical wound since her last visit. 07/27/17. Seen by Dr. Vela. The patient does not report pain or significant drainage associated with the left lower leg surgical wound since her last visit. 07/21/2017. Seen by Dr. Vela. The patient is new to our clinic and presents with a left anterior lower leg surgical wound following a Moh's procedure yesterday for excision of a squamous cell carcinoma. She has been referred to our center as this wound will heal by secondary intention due to its size. She does not report significant pain or drainage and does not have a history of diabetes nor PAD. Past Medical History This information was obtained from the patient Patient has a medical history of: Atrial fibrillation Arthritis Gout Hypertension Hypercholesterolemia History of Squamous cell carcinoma (multiple) History of Basal cell carcinoma (multiple) Neuropathy Complaints and Symptoms This information was obtained from the patient Patient complains of: General Notes: I have reviewed and concur with the Review of Systems and Past Family Social History documents completed by the clinician, I have reviewed and concur with the Wound Assessment document completed by the clinician Cardiovascular (Central): Irregular heart beat Cardiovascular (Central/Peripheral): Lower extremity (leg) swelling Hematologic/Lymphatic: Bleeding Tendency Integumentary (Hair/Skin/Nails): Open Sore Prior Wound History: Bleeding Patient denies complaints or symptoms related to: Cardiovascular (Central/Peripheral): Intermittent Claudication, Lower extremity (leg) resting pain Constitutional Symptoms (General Health): Fever Ear/Nose/Mouth/Throat: Hearing Loss / Aid Hematologic/Lymphatic: Bleeding / Clotting Disorders Musculoskeletal: Assistive Devices Neurological: Loss of Protective Sensation Prior Wound History: Pain Psychiatric: Memory Loss Respiratory: Oxygen Use, Shortness of Breath OBJECTIVE Constitutional BP elevated; Afebrile; Alert and in no distress. Well developed. Alert. Clean appearing.. Height/Length: 67 in (170.18 cm), Weight: 199.7 lbs (90.77 kgs), BMI: 31.3, Temperature: 98.0 ?F (36.67 ?C), Pulse: 59 bpm, Respiratory Rate: 17 breaths/min, Blood Pressure: 159/77 mmHg, Pulse Oximetry: 95 %. Ears, Nose, Mouth, and Throat: No clinically significant hearing loss on informal examination. Integumentary (Hair, Skin) No periwound erythema, warmth, or significant drainage. No periwound rashes appreciated or noted otherwise.. Refer to appropriate clinician wound documentation for this visit. Wound #1 Left Leg is an acute Full Thickness Surgical Wound and has received a status of Not Healed. Subsequent wound encounter measurements are 0.1cm length x 0.1cm width x 0.1cm depth, with an area of 0.01 sq cm and a volume of 0.001 cubic cm. Hypergranulation was noted. No tunneling has been noted. No sinus tract has been noted. No undermining has been noted. There was no drainage noted. The patient reports no wound pain due to the wound being insensate. The wound margin is attached. Wound bed has Yes epithelialization, No eschar, No slough, Yes bright red, firm granulation. The periwound skin texture is normal. The periwound skin moisture is normal. The periwound skin color is normal. The temperature of the periwound skin is WNL. Periwound skin does not exhibit signs or symptoms of infection. Local Pulse is Palpable. Neurological: Cranial nerves grossly intact with symmetric function normal by informal observation.. ASSESSMENT Active Problems ICD-10 (Encounter Diagnosis) S81.802D - Unspecified open wound, left lower leg, subsequent encounter (Encounter Diagnosis) T81.31XD - Disruption of external operation (surgical) wound, not elsewhere classified, subsequent encounter PLAN Wound Orders: Wound #1 Left Leg Anesthetic Topical Xylocaine to wound bed. - In clinic only. Cleanser Cleanse Wound: - Normal saline and gauze in clinic. May Shower. - Please continue to use cast protector when showering. Dressings Cover and secure with: - bordered foam. Change Dressing: - Every other day. Follow-Up Appointments Return Appointment: - - Two week Other information: If you develop fever, chills, increased pain, drainage, redness or swelling please call our office. If after hours, respond to the ER. Should you experience any significant changes in your wound(s) or have any questions regarding your home care instructions please contact the wound center @ [phone]. If after hours, contact your primary care physician or go to the hospital emergency room. Scribing Attestation I attest, as the nurse, that I scribed these orders for the physician. I've reviewed the clinician's documentation and agree with the evaluation and plan as written. Electronic Signature(s) Signed By: Date: Tigre Vela MD 10/05/2017 11:31:50 Entered By: Tigre Vela on 10/04/2017 13:56:37
== END ==
PROVIDERS: PCP Family Medicine; Visit Provider Internal Medicine
DX: S81.802D Unspecified open wound, left lower leg, subsequent encounter (principal); T81.31XD Disruption of external operation (surgical) wound, not elsewhere classified, subsequent encounter
CPT/HCPCS: 99212

== ENCOUNTER → 2017-10-17 09:47 | Outpatient (CLI) | payer MEDICARE, OTHER, SELFPAY ==
--- NOTE | 2017-10-17 | OV.WND_ITS ---
Progress Note Details Patient Name: Clementina Roque Patient Number: [id number] PatientPatientDate: 10/17/2017 Clinician: Aubrie Rodriguez Clinician Cosigner: Shobha Avalos Physician / Pick And Shovel Worker: Tigre Vela SUBJECTIVE Chief Complaint This information was obtained from the patient Surgical wound on left lower leg. Allergies peanut (Severity: Severe, Reaction: anaphylaxis), codeine (Reaction: unknown) HPI This information was obtained from the patient 10/17/17. Seen by Dr. Vela. The patient does not report pain or significant drainage associated with the left lower leg surgical wound since her last visit. 10/04/17. Seen by Dr. Vela. The patient does not report pain or significant drainage associated with the left lower leg surgical wound since her last visit. 09/20/17. Seen by Dr. Vela. The patient does not report pain or significant drainage associated with the left lower leg surgical wound since her last visit. 09/12/17. Seen by Dr. Vela. The patient does not report pain or significant drainage associated with the left lower leg surgical wound since her last visit. 09/05/17. Seen by Dr. Vela. The patient does not report pain or significant drainage associated with the left lower leg surgical wound since her last visit. 08/29/17. Seen by Jose Manuel Piedra PA-C. The patient reports no increase in drainage form the left lower leg wound. 08/22/17. Seen by Dr. Vela. The patient does not report pain or significant drainage associated with the left lower leg surgical wound since her last visit. 08/15/17. Seen by Dr. Vela. The patient does not report pain or significant drainage associated with the left lower leg surgical wound since her last visit. 08/08/17. Seen by Dr. Vela. The patient does not report pain or significant drainage associated with the left lower leg surgical wound since her last visit. 08/02/17. Seen by Dr. Vela. The patient does not report pain or significant drainage associated with the left lower leg surgical wound since her last visit. 07/27/17. Seen by Dr. Vela. The patient does not report pain or significant drainage associated with the left lower leg surgical wound since her last visit. 07/21/2017. Seen by Dr. Vela. The patient is new to our clinic and presents with a left anterior lower leg surgical wound following a Moh's procedure yesterday for excision of a squamous cell carcinoma. She has been referred to our center as this wound will heal by secondary intention due to its size. She does not report significant pain or drainage and does not have a history of diabetes nor PAD. Past Medical History This information was obtained from the patient Patient has a medical history of: Atrial fibrillation Arthritis Gout Hypertension Hypercholesterolemia History of Squamous cell carcinoma (multiple) History of Basal cell carcinoma (multiple) Neuropathy Complaints and Symptoms This information was obtained from the patient Patient complains of: General Notes: I have reviewed and concur with the Review of Systems and Past Family Social History documents completed by the clinician, I have reviewed and concur with the Wound Assessment document completed by the clinician Cardiovascular (Central): Irregular heart beat Cardiovascular (Central/Peripheral): Lower extremity (leg) swelling Hematologic/Lymphatic: Bleeding Tendency Integumentary (Hair/Skin/Nails): Open Sore Prior Wound History: Bleeding Patient denies complaints or symptoms related to: Cardiovascular (Central/Peripheral): Intermittent Claudication, Lower extremity (leg) resting pain Constitutional Symptoms (General Health): Fever Ear/Nose/Mouth/Throat: Hearing Loss / Aid Hematologic/Lymphatic: Bleeding / Clotting Disorders Musculoskeletal: Assistive Devices Neurological: Loss of Protective Sensation Prior Wound History: Pain Psychiatric: Memory Loss Respiratory: Oxygen Use, Shortness of Breath OBJECTIVE Constitutional BP elevated; Afebrile; Alert and in no distress. Well developed. Alert. Clean appearing.. Height/Length: 67 in (170.18 cm), Weight: 201.7 lbs (91.68 kgs), BMI: 31.6, Temperature: 95 ?F (35 ?C), Pulse: 68 bpm, Respiratory Rate: 18 breaths/min, Blood Pressure: 144 /70 mmHg, Pulse Oximetry: 95 %. Respiratory: No respiratory distress. Even respirations and without use of accessory muscles.. Integumentary (Hair, Skin) Refer to appropriate clinician wound documentation for this visit.. Wound #1 Left Leg is an acute Full Thickness Surgical Wound and has received an outcome of Healed - no new wound(s). Subsequent wound encounter measurements are 0cm length x 0cm width with no measurable depth, with an area of 0 sq cm . Hypergranulation was noted. No tunneling has been noted. No sinus tract has been noted. No undermining has been noted. There was no drainage noted. The patient reports no wound pain due to the wound being insensate. The wound margin is attached. Wound bed has Yes epithelialization, No eschar, No slough, No granulation. The periwound skin texture is normal. The periwound skin moisture is normal. The periwound skin color is normal. The temperature of the periwound skin is WNL. Periwound skin does not exhibit signs or symptoms of infection. Local Pulse is Palpable. Neurological: Cranial nerves grossly intact with symmetric function normal by informal observation.. ASSESSMENT Active Problems ICD-10 (Encounter Diagnosis) S81.802D - Unspecified open wound, left lower leg, subsequent encounter (Encounter Diagnosis) T81.31XD - Disruption of external operation (surgical) wound, not elsewhere classified, subsequent encounter PLAN Wound Orders: Wound #1 Left Leg Cleanser May Shower. Topical Treatments Antibiotic/Antimicrobial Ointment/Cream. - Hydrogel Dressings Cover and secure with: - Nexcare Change Dressing: - Every three days Scribing Attestation I attest, as the nurse, that I scribed these orders for the physician. Additional Orders: Follow-Up Appointments Other information: If you develop fever, chills, increased pain, drainage, redness or swelling please call our office. If after hours, respond to the ER. Should you experience any significant changes in your wound(s) or have any questions regarding your home care instructions please contact the wound center @ [phone]. If after hours, contact your primary care physician or go to the hospital emergency room. Discharge from Outpatient Services. I've reviewed the clinician's documentation and agree with the evaluation and plan as written. In addition the patient's last remiaining complex wound is now healed. The patient is invited to return to our clinic for treatment of any future complex wounds. Post wound care and strategies to avoid recurrences were discussed. Electronic Signature(s) Signed By: Date: Tigre Vela MD 10/18/2017 08:37:45 Entered By: Tigre Vela on 10/17/2017 10:43:30
== END ==
PROVIDERS: PCP Family Medicine; Visit Provider Internal Medicine
DX: Z48.817 Encounter for surgical aftercare following surgery on the skin and subcutaneous tissue (principal)
CPT/HCPCS: 99212

== ENCOUNTER 2017-11-28 08:04 | Outpatient (CLI) | payer MEDICARE, OTHER, SELFPAY ==
[2017-11-28] VITALS (11 sets, daily range): BP systolic 97–145; BP diastolic 56–86; PULSE 51–60; RESP 15–18; TEMP 36.1; O2SAT 95–98
--- NOTE | 2017-11-28 08:06 | DI.RAD.S_ITS ---
PROCEDURE: PAIN L INTERLAMINAR/CAUDAL INJ INDICATIONS: SPINAL STENOSIS FINDINGS: Fluoroscopic spot filming was performed to verify placement of spinal needles at the L4-5 intralaminar level(s), as labeled on the films. Appropriate location(s) of the needle tip(s) was confirmed by injection of iodinated contrast. IMPRESSION: Successful L4-5 paramedian interlaminar localization for epidural steroid injection. Dictated by: Joe Seymour M.D. on 11/28/2017 at 16:13 Approved by: Joe Seymour M.D. on 11/28/2017 at 16:14
--- NOTE | 2017-11-28 08:53 | P.PCN_ITS ---
Procedures Date/Time Date of procedure: 11/28/17 Time of procedure: 08:51 General Procedure description: PROVIDER: Jorge L Wilburn DO Operative Note PREOP DIAGNOSIS 1. HNP WITH RADICULAR FEATURES, 2. MULTILEVEL CENTRAL STENOSIS, POST OP DIAGNOSIS 1. HNP WITH RADICULAR FEATURES, 2. MULTILEVEL CENTRAL STENOSIS PROCEDURES 1. FLUORSCOPICALLY GUIDED CONTRAST CONTROLLED INTERLAMINAR EPIDURAL STEROID INJECTION -L4/5 PHYSICIAN: Jorge L Wilburn DO INDICATIONs: Clementina is referred by for treatment of Bilateral Foraminal Stenosis R> L LE symptoms. FINDINGS Multilevel Central Spinal Stenosis with Nerve Root Compression DESCRIPTION OF PROCEDURE Fluoroscopically guided, contrast-controlled L4/5 translaminar epidural steroid injection. Following denial of allergy and review of potential side effects and complications, including, but not necessarily limited to, infection, allergic reaction, local tissue breakdown, temporary as well as permanent nerve injury, paralysis, stroke and possible , the patient indicated that the patient understood and agreed to proceed. An informed consent document was signed by the patient, witnessed by a nurse, and placed in the patient's chart. Additionally, other treatment options including modalities, medications, and physical therapy were reviewed with the patient. After review of previous anaesthesic history and IV conscious sedation the patient was deemed safe to proceed with todays procedure with IV conscious sedation as ASA class II designation. Safety time-out was performed to confirm patient ID, procedure to be performed and site of procedure. IV sedation was accomplished with a combination of 2mg was administered by the RN after DO order , titrated to patient comfort during the course of the procedure while the patient remained responsive to all verbal commands In the prone position, following sterile prep and drape of the lumbar region, the L4/5 translaminar space was identified fluoroscopically. The skin was anesthetized via a 25-gauge, 1.5-inch needle with 1% lidocaine solution. At this point, a 22-gauge short bevel spinal needle was atraumatically introduced and advanced under fluoroscopic guidance into the region of the L4/5 translaminar space. Depth was confirmed on lateral view. Radiological data, including multiple fluoroscopic views of the lumbar spine, reveal a spinal needle at the L4/5 translaminar space. Lateral views then show placement of the needle in the epidural space. Subsequent views show contrast material flowing superiorly and inferiorly in the epidural space. No vascular or intrathecal uptake is observed. At this point, using loss of resistance technique with saline and air, the epidural space was entered. This was confirmed following negative aspiration with injection of approximately 1.5 cc of Isovue 200, showing excellent epidural flow without vascular or intrathecal uptake. At this point, 1 cc of 1 % lidocaine solution combined with 3 cc or 20 mg of dexamethasone and 80mg Depo medrol was injected without incident. The patient tolerated the procedure well without signs or symptoms of complications prior to transfer to the recovery area continued monitoring without incident. The patient was then transferred to the recovery area where they were observed for an appropriate period of time after the injection. The patient reported a VAS score of 6 prior to the procedure and a post- procedure VAS of 0. Total Fluoroscopy Time: 11.8 seconds, 8.99 mGy Total Conscious Sedation Time: 24min POST OP INSTRUCTIONS The patient was provided a Pain Log to continue to record their response to the target-specific procedure prior to follow-up visit with their referring physician. Additionally, specific post-injection care instructions and a contact number to our office were provided if concerns arise regarding possible complications associated with the procedure are suspected. Jorge L Wilburn, DO Complications: none
[2017-11-28] MEDS: MIDAZOLAM 5 MG/5 ML VIAL IV (09:09)
[2017-11-28] MEDS: BUPIVACAINE 0.25% (PF) VIAL 2 ML INJ (09:10)
[2017-11-28] MEDS: DEXAMETHASONE 10 MG/ML VIAL 20 MG INJ (09:10)
[2017-11-28] MEDS: IOPAMIDOL 15 ML VIAL 3 ML INJ (09:10)
[2017-11-28] MEDS: methylPREDNISolone acetate 80 MG/ML VIAL INJ (09:11)
--- NOTE | 2017-11-29 12:47 | PC.NURSE ---
FOLLOW UP CALL MADE, LEFT PHONE MSG WITH CLINIC NUMBER FOR QUESTIONS/CONCERNS.
== END 2017-11-28 10:29 ==
LOC: RAD 08:05
PROVIDERS: PCP Family Medicine; Visit Provider Physical Medicine & Rehabilitation
DX: M51.16 Intervertebral disc disorders with radiculopathy, lumbar region (principal); M48.061 Spinal stenosis, lumbar region without neurogenic claudication; M43.16 Spondylolisthesis, lumbar region
CPT/HCPCS: 62323; 99152; J1040; J1100; J2250

== ENCOUNTER → 2018-02-14 14:52 | Outpatient (CLI) | payer MEDICARE, OTHER, SELFPAY | PROVIDERS: PCP Family Medicine; Visit Provider Family Medicine | DX: M85.852 Other specified disorders of bone density and structure, left thigh (principal); Z78.0 Asymptomatic menopausal state | CPT/HCPCS: 77080 ==

== ENCOUNTER 2018-03-18 22:35 | Emergency (ER) | payer MEDICARE, OTHER, SELFPAY ==
--- NOTE | 2018-03-18 22:39 | ED_ITS ---
HPI - General Adult General Chief complaint: Fever Stated complaint: Chills,sick,achy,swelling Time Seen by Provider: 03/18/18 22:37 Source: patient Mode of arrival: ambulatory Limitations: no limitations History of Present Illness HPI narrative: 77-year-old female here for evaluation of approximately 12-24 hours of chills and subjective fevers. She also complains redness and tenderness around the right elbow. Some swelling to her right knee and swelling to her left ankle. No known trauma. She does have a history of gout but she states this is different that are gout. No chest pain or shortness of breath. She states she feels somewhat better now with regard to the chills and the fever than what she did earlier. She is taking all of her medications. Has tried nothing for the symptoms prior to arrival. Related Data Home Medications Medication Instructions Recorded Confirmed amlodipine [Norvasc] 5 mg PO QDAY #0 tab 12/17/15 12/29/17 carvedilol [Coreg] 6.25 mg PO BID #60 tab 12/17/15 12/29/17 furosemide 20 mg PO QDAY #30 tab 12/17/15 12/29/17 potassium chloride [K-Tab] 20 meq PO QDAY #0 12/17/15 12/29/17 warfarin [Coumadin] 5 mg PO QDAY #0 tab 12/17/15 12/29/17 colchicine 0.6 mg PO BID #0 07/09/16 12/29/17 pantoprazole 20 mg PO BID #0 07/09/16 12/29/17 acetaminophen 500 mg tablet 1,000 mg PO BID PRN tab 10/12/17 12/29/17 allopurinol 100 mg tablet 100 mg PO BID 10/12/17 12/29/17 brimonidine 0.1 % eye drops 1 drop EYE-RIGHT BID ml 10/12/17 12/29/17 dorzolamide 22.3 mg-timolol 6.8 1 drop EYE-BOTH BID ml 10/12/17 12/29/17 mg/mL eye drops mirtazapine 15 mg disintegrating 7.5 mg PO DAILY tab 10/12/17 12/29/17 tablet multivitamin tablet 1 tab PO DAILY 12/29/17 12/29/17 Previous Rx's Medication Instructions Recorded gabapentin 300 mg capsule 300 mg PO TID #90 cap 11/24/17 Allergies Allergy/AdvReac Type Severity Reaction Status Date / Time codeine [CODEINE] Allergy Severe ANAPHYLACTI Verified 03/18/18 23:02 C peanut [PEANUT] Allergy Severe ANAPHYLACTI Verified 03/18/18 23:02 C Review of Systems Constitutional Reports chills, Denies fatigue, Reports fever(s) and Denies headache(s) ENT Ears, Nose, Mouth, and Throat: Denies headache(s) and Denies throat swelling Cardiovascular Denies chest pain, Denies palpitations and Denies dyspnea Respiratory Denies chest congestion, Denies dyspnea and Denies wheezing Gastrointestinal Gastrointestinal: Denies abdominal pain, Denies nausea and Denies vomiting Genitourinary Denies dysuria Musculoskeletal Comments: Right elbow swelling and pain right knee swelling and pain left ankle swelling and pain Integumentary/Breasts Comments: Redness around the right elbow Neurologic Denies headache(s) Endocrine Denies fatigue, Denies flushing and Denies palpitations Hematologic/Lymphatic Comments: Currently on Coumadin Allergic/Immunologic Denies urticaria, Denies throat swelling and Denies wheezing [facility] Medical History Atrial fibrillation (Acute) Gastroesophageal reflux disease (Acute) Gout (Acute) Hypertension (Acute) Social History Smoking Status: Never smoker Exam Initial Vital Signs Initial Vital Signs: Vital Signs Temperature 99.0 F 03/18/18 22:54 Pulse Rate 77 03/18/18 22:54 Respiratory Rate 19 03/18/18 22:54 Blood Pressure 146/69 H 03/18/18 22:54 Pulse Oximetry 93 03/18/18 22:54 Const General: cooperative, healthy appearing, comfortable, well developed, well groomed and No acute distress Orientation: alert, awake and oriented x3 HENMT Head: normal to inspection and normocephalic Resp Effort & Inspection: normal respiratory effort Auscultation: clear to auscultation bilaterally Cardio Rate: regular rate Rhythm: regular rhythm Pulses: radial pulses present GI Inspection: non-distended Palpation: soft and No firm Skin Other: Small area of redness over the olecranon process of the right elbow Neuro General: alert, awake and oriented x3 Cognition: normal cognition Speech: speech normal Sensory Exam: no sensory deficits noted Extrem Other: Patient with full range of motion of all major joints to include right elbow right knee and left ankle. Does have tenderness to palpation over the olecranon of the right elbow with minimal swelling. Does have some swelling to the superior aspect of the right knee on the lateral aspect. She states this has improved from earlier today. Does have some swelling over the lateral malleolus of the left ankle. Psych Appearance: grossly normal and well kempt Course Vital Signs - 8 hr 03/18/18 22:54 03/18/18 23:44 Temperature 99.0 F 100.2 F H Pulse Rate 77 71 Respiratory Rate 19 16 Blood Pressure 146/69 H Blood Pressure [Left Arm] 129/58 L Pulse Oximetry 93 97 Medical Decision Making [facility] Narrative Medical decision making narrative: Patient's physical exam is not consistent with gout. She states she has a history of gout and this feels different from her prior outbreaks. She has never had him in these areas in the past. She is afebrile here in the ER. Does have some redness around the right elbow but no redness over the right knee in the left ankle. No trauma. Low suspicion for fracture. Will hold on radiologic studies for now. Had a discussion with the patient regarding her symptoms. We did discuss possibility of bursitis/ tendinitis versus septic joint versus reactive arthritis. Due to the multiple joints considered other etiologies such as endocarditis however she does not fit any of these other pathologies. We did discuss the possibility of doing lab work here in the ER and also the possibility of doing joint aspiration to evaluate. I feel that there would be minimal amount of fluid that could be aspirated from the right elbow on the left ankle however there is the possibility of aspirating fluid from the right knee. We did discuss the risks and benefits of this to include introducing an infection in the area. After this discussion the patient asked if she could wait a little longer to see if her symptoms improve since they have improved somewhat since earlier today. I informed the patient that this is a reasonable course of action. Also considered other rheumatologic possibilities and did discuss these with the patient. Will hold on any further workup for now. Will hold on any blood work for now. Patient was given return precautions. Will hold on any antibiotics for now. Patient expressed understanding and agreement with this plan. Discharge Plan Departure Patient Disposition: Home Clinical Impression: Arthritis Discharge Date/Time: 03/19/18 00:01 Interventions: ED Discharge Assessment Last Done: 03/19/18 00:00 Instructions: DI for Arthritis Activity Restrictions/Additional Instructions: I diagnosed you with arthritis because this is a General term for pain in the joints. After our discussion we opted to wait on any testing to see if your symptoms worsen. I recommend you continue all of your medications as directed. I would return to the emergency department if he noticed more swelling, more pain, more redness over these joints. Call your primary care doctor for follow- up as well. Prescriptions: No Action warfarin [Coumadin] 5 MG tablet 5 mg PO QDAY Qty: 0 RF: 0 carvedilol [Coreg] 6.25 MG tablet 6.25 mg PO BID Qty: 60 RF: 0 potassium chloride [K-Tab] 20 MEQ tablet extended release 20 meq PO QDAY Qty: 0 RF: 0 amlodipine [Norvasc] 5 MG tablet 5 mg PO QDAY Qty: 0 RF: 0 furosemide 20 MG tablet 20 mg PO QDAY Qty: 30 RF: 0 pantoprazole 20 MG tablet,delayed release (DR/EC) 20 mg PO BID Qty: 0 RF: 0 colchicine 0.6 MG tablet 0.6 mg PO BID Qty: 0 RF: 0 gabapentin 300 mg capsule 300 mg PO TID Qty: 90 RF: 2 multivitamin [Daily Multi-Vitamin] tablet 1 tab PO DAILY RF: 0 allopurinol 100 mg tablet 100 mg PO BID RF: 0 acetaminophen [Acetaminophen Extra Strength] 500 mg tablet 1,000 mg PO BID PRNRF: 0 dorzolamide-timolol 22.3-6.8 mg/mL drops 1 drop EYE-BOTH BID RF: 0 mirtazapine [Remeron SolTab] 15 mg tablet,disintegrating 7.5 mg PO DAILY RF: 0 brimonidine [Alphagan P] 0.1 % drops 1 drop EYE-RIGHT BID RF: 0
[2018-03-18 22:54] VITALS: BP 146/69; PULSE 77; RESP 19; TEMP 37.2; O2SAT 93; BMI 32.3
[2018-03-18 23:44] VITALS: BP 129/58; PULSE 71; RESP 16; TEMP 37.9; O2SAT 97
== END 2018-03-19 00:01 | disposition home or self-care (01) ==
PROVIDERS: Emergency Provider Emergency Medicine; PCP Family Medicine
DX: M19.90 Unspecified osteoarthritis, unspecified site (principal)
CPT/HCPCS: 99282

== ENCOUNTER → 2018-03-28 12:11 | Outpatient (CLI) | payer MEDICARE, OTHER, SELFPAY ==
--- NOTE | 2018-03-28 | DI.RAD.S_ITS ---
PROCEDURE: XR FOOT LT MIN 3V INDICATIONS: LEFT SECOND MTP CHANGE TECHNIQUE: 3 views of the foot were acquired. COMPARISON: None. FINDINGS: Bones: No fractures or dislocations. No suspicious bony lesions. Prominent plantar and posterior calcaneal spurring. There is additional heterotopic ossification in the region of the distal Achilles tendon in keeping with chronic tendinopathy. Moderate first MTP joint degeneration. Limited evaluation of the lesser toe interphalangeal joint spaces due to flexion positioning. Possible erosive changes seen at the second MTP joint, in particular at the lateral base of the proximal phalanx. There are adjacent chronic faint calcifications in the soft tissues. Soft tissues: There are nonspecific calcific densities projecting adjacent to cuboid IMPRESSION: Possible mild second MTP subtle/small erosive changes with adjacent soft tissue calcifications and no definite joint space narrowing. This raises the possibility of gout, although technically indeterminate and atypical location. Please correlate clinically and with laboratory data. Theoretically, this could reflect posttraumatic secondary joint degeneration Moderate first MTP degeneration. Prominent plantar and posterior calcaneal spurring in addition to distal Achilles heterotopic ossification (in keeping with chronic Achilles tendinopathy) Dictated by: Stan Vann M.D. on 03/28/2018 at 13:16 Approved by: Stan Vann M.D. on 03/28/2018 at 13:45
== END ==
PROVIDERS: PCP Family Medicine; Visit Provider Family Medicine
DX: M19.072 Primary osteoarthritis, left ankle and foot (principal); M77.32 Calcaneal spur, left foot; M67.972 Unspecified disorder of synovium and tendon, left ankle and foot
CPT/HCPCS: 73630

== ENCOUNTER 2018-04-06 05:28 | Emergency (ER) | payer MEDICARE, OTHER, SELFPAY ==
[2018-04-06] VITALS (8 sets, daily range): BP systolic 106–153; BP diastolic 61–106; PULSE 72–136; RESP 18–20; TEMP 37; O2SAT 95–99; BMI 32.3
[2018-04-06] MEDS: dilTIAZem 5 MG/ML SDV 20 MG IV (06:00)
--- NOTE | 2018-04-06 06:00 | ED_ITS ---
HPI - Arrhythmia/Palpitations General Chief Complaint: Arrhythmia/Palpitations Stated Complaint: states in a fib for 14 hours Time Seen by Provider: 04/06/18 05:29 Source: patient Mode of arrival: ambulatory Limitations: no limitations History of Present Illness HPI narrative: The patient presents with palpitations, and mild dizziness. She has mild dyspnea with exertion. She denies chest pain. She has paroxysmal atrial fib. In recent weeks she has been in and out of AFib more common than normal. She flipped in AFib yesterday, the AFib has persisted since that time. She presents now with palpitations, and mild dyspnea with exertion. She has had no fever, chills or productive cough. She denies chest pain or back pain. She has no history of UT, she denies a history of TIA or CVA. She is on multiple hypertension meds, she is on Coumadin to prevent her from TIA/CVA. She has been compliant with her regular medications. Related Data Home Medications Medication Instructions Recorded Confirmed amlodipine [Norvasc] 5 mg PO QDAY #0 tab 12/17/15 12/29/17 carvedilol [Coreg] 6.25 mg PO BID #60 tab 12/17/15 12/29/17 furosemide 20 mg PO QDAY #30 tab 12/17/15 12/29/17 potassium chloride [K-Tab] 20 meq PO QDAY #0 12/17/15 12/29/17 warfarin [Coumadin] 5 mg PO QDAY #0 tab 12/17/15 12/29/17 colchicine 0.6 mg PO BID #0 07/09/16 12/29/17 pantoprazole 20 mg PO BID #0 07/09/16 12/29/17 acetaminophen 500 mg tablet 1,000 mg PO BID PRN tab 10/12/17 12/29/17 allopurinol 100 mg tablet 100 mg PO BID 10/12/17 12/29/17 brimonidine 0.1 % eye drops 1 drop EYE-RIGHT BID ml 10/12/17 12/29/17 dorzolamide 22.3 mg-timolol 6.8 1 drop EYE-BOTH BID ml 10/12/17 12/29/17 mg/mL eye drops mirtazapine 15 mg disintegrating 7.5 mg PO DAILY tab 10/12/17 12/29/17 tablet multivitamin tablet 1 tab PO DAILY 12/29/17 12/29/17 Previous Rx's Medication Instructions Recorded gabapentin 300 mg capsule 300 mg PO TID #90 cap 11/24/17 warfarin [Coumadin] 5 mg PO DAILY #60 tab 04/06/18 Allergies Allergy/AdvReac Type Severity Reaction Status Date / Time codeine [CODEINE] Allergy Severe ANAPHYLACTI Verified 03/18/18 23:02 C peanut [PEANUT] Allergy Severe ANAPHYLACTI Verified 03/18/18 23:02 C Review of Systems Review of Systems ROS Unobtainable: All systems reviewed & are unremarkable except as noted in HPI and below Constitutional Denies chills, Denies fever(s), Denies lethargy and Denies weakness ENT Ears, Nose, Mouth, and Throat: Denies change in voice, Denies vertigo, Reports dizziness, Denies neck pain and Denies sore throat Cardiovascular Denies chest pain, Reports irregular heart rhythm, Reports lightheadedness, Reports palpitations, Reports dyspnea, Denies dyspnea on exertion and Denies orthopnea Respiratory Denies cough, Reports dyspnea, Denies dyspnea on exertion, Denies wheezing and Reports other (No orthopnea.) Gastrointestinal Gastrointestinal: Denies abdominal pain, Denies change in bowel habits, Denies diarrhea, Denies nausea and Denies vomiting Musculoskeletal Denies back pain and Denies neck pain Integumentary/Breasts Denies pruritus, Denies erythema, Denies rash and Denies wounds Neurologic Denies vertigo, Reports dizziness and Denies weakness Endocrine Reports palpitations Hematologic/Lymphatic Denies easy bleeding and Denies easy bruising Allergic/Immunologic Denies wheezing [facility] Medical History Atrial fibrillation (Acute) Gastroesophageal reflux disease (Acute) Gout (Acute) Hypertension (Acute) Social History Smoking Status: Never smoker Exam Initial Vital Signs Initial Vital Signs: Vital Signs Temperature 98.6 F 04/06/18 05:35 Pulse Rate 136 H 04/06/18 05:35 Respiratory Rate 20 04/06/18 05:35 Blood Pressure 153/106 H 04/06/18 05:35 Pulse Oximetry 98 04/06/18 05:35 Const General: cooperative and well developed Nutritional Appearance: well nourished Orientation: alert, awake, oriented x3 and not confused [facility] Head: normocephalic and atraumatic Ears: external ears normal and TM's normal bilaterally Nose: external nose normal and No nasal discharge Face and sinus: sinuses nontender, face symmetric, no sinus tenderness and No dry mucous membranes Mouth: oral mucosae normal and moist mucous membranes Teeth and gingiva: dentition normal Throat: tonsils normal and uvula midline Eyes General: appearance normal, both eyes and all related structures Eyelids: eyelids normal Conjunctivae: conjunctivae normal Sclera: sclerae normal Pupils: PERRL EOM: EOM intact bilaterally Neck Neck: full ROM and No JVD Chest Chest: normal inspection of the chest Resp Effort & Inspection: normal respiratory effort, able to speak in complete sentences, no respiratory distress and no use of accessory muscles Auscultation: clear to auscultation bilaterally, no rales, no rhonchi and no wheezes Cardio Rate: tachycardic Rhythm: abnormal rhythm irregularly irregular Heart Sounds: S1 normal, S2 normal, no click, no murmurs and no rubs GI Inspection: non-distended Palpation: soft, no hepatosplenomegaly, No guarding and No tender Auscultation: normal bowel sounds Back/Spine/Pelvis Back: No CVA tenderness Skin General: no rashes or lesions noted Neuro General: alert, awake, oriented x3 and no focal motor deficits Extrem General: full ROM, no pedal edema and no calf tenderness Psych Appearance: grossly normal and well kempt Course Orders Ordered: ED Orders 04/06/18 05:50 Basic Metabolic Panel Stat Complete Blood Count AUTO DIFF Stat Magnesium Stat Partial Thromboplastin Time Stat Prothrombin Time INR Stat Troponin & CK Cardiac Panel Stat 04/06/18 05:52 EKG-12 Lead Stat Sodium Chloride (Normal Saline 0.9%) 1,000 mls @ 100 mls/hr IV CONT AMMON Last Admin: 04/06/18 06:02 Dose: 100 mls/hr Discontinued Medications Carvedilol (Coreg) 12.5 mg PO NOW ONE Stop: 04/06/18 06:56 Last Admin: 04/06/18 07:46 Dose: 12.5 mg Diltiazem HCl (Cardizem) 20 mg IV NOW ONE Stop: 04/06/18 05:52 Last Admin: 04/06/18 06:00 Dose: 20 mg Warfarin Sodium (Coumadin) 10 mg PO NOW ONE Stop: 04/06/18 07:35 Last Admin: 04/06/18 07:46 Dose: 10 mg Vital Signs - 8 hr 04/06/18 05:35 04/06/18 05:57 04/06/18 06:00 Temperature 98.6 F Pulse Rate 136 H 72 136 H Respiratory Rate 20 20 Blood Pressure 153/106 H Blood Pressure [Right Arm] 106/61 Pulse Oximetry 98 99 04/06/18 06:33 04/06/18 07:46 04/06/18 08:30 Temperature Pulse Rate 91 H 102 H 92 H Respiratory Rate 19 19 Blood Pressure 148/65 H Blood Pressure [Right Arm] 135/78 139/83 Pulse Oximetry 97 96 04/06/18 09:02 Temperature Pulse Rate 92 H Respiratory Rate 18 Blood Pressure Blood Pressure [Right Arm] 131/72 Pulse Oximetry 96 MDM - Arrhythmia/Palpitations Medical Records Attestation: I reviewed the patient's medical records. Lab Data Result diagrams: 04/06/18 05:50 04/06/18 05:50 Lab Results 04/06/18 04/06/18 04/06/18 Range/Units 05:50 05:50 05:50 WBC 14.9 H (4.5-11.0) X10^3/uL RBC 4.04 (4.0-5.2) X10^6/uL Hgb 12.6 (12.0-16.0) g/dL Hct 39.3 (36-46) % MCV 97.4 (80-100) fL MCH 31.1 (26-34) PG MCHC 32.0 (30-36) % RDW 14.4 (11.6-14.8) % Plt Count 242 (150-400) X10^3/uL Neut % (Auto) 74.0 (50-75) % Lymph % (Auto) 16.0 L (25-40) % Hyde % (Auto) 8.2 (3-14) % Eos % (Auto) 1.0 L (2-4) % Baso % (Auto) 0.8 (0-2) % Neut # (Auto) 39020 H (8855-6700) /uL Lymph # (Auto) 2400 (7695-4537) /uL Hyde # (Auto) 1200 H (0-900) /uL Eos # (Auto) 100 (0-450) /uL Baso # (Auto) 100 (0-100) /uL PT 12.7 (10.1-12.7) SECONDS INR 1.1 (0.9-1.3) APTT 29 (26.4-36.2) SECONDS Sodium 138 (137-145) mmol/L Potassium 4.3 (3.4-5.1) mmol/L Chloride 107 (98-107) mmol/L Carbon Dioxide 21 L (22-32) mmol/L BUN 40 H (7-17) mg/dL Creatinine 2.60 H (0.52-1.04) mg/dL Estimated GFR 17.9 L (>60) mL/min BUN/Creatinine Ratio 15.4 (6-22) Glucose 137 H (80-110) mg/dL Calcium 8.8 (8.4-10.2) mg/dL Magnesium 1.5 L (1.6-2.3) mg/dL Total Creatine Kinase 132 (30-135) U/L CK-MB (CK-2) 2.36 (<2.37) ng/mL CK-MB (CK-2) Rel Index 1.8 (1.5-5.0) % Troponin I 0.042 H (0.01-0.034) ng/mL ECG Data Attestation: I personally reviewed and interpreted this ECG as follows: MDM Narrative Medical decision making narrative: Patient's heart rate did drop down into the 60s after receiving IV Cardizem. She has remained normotensive. Heart rate is now increased slowly backed the 90s. She takes Coreg 6.[address] Dietz is her primary care doctor, Dr. Cavazos is on-call. We discussed increasing the Coreg. Her blood pressure is a little high, increasing Coreg to 12.5 mg b.i.d. seems like it should be well tolerated. She will be given a 1st dose now. The intent is to send her home with the increased medications, and call for follow-up in clinic tomorrow. She can use her current dose, doubling the 6.25 mg dosing. The patient's INR is low considering she is on Coumadin. She is almost out of medications, she is down to 1 dose. She has been splitting her dose in half. I will refill her medications. Discharge Plan Departure Patient Disposition: Home Clinical Impression: Atrial fibrillation Instructions: Atrial Fibrillation Activity Restrictions/Additional Instructions: Continue taking her current medications, especially continue taking Coumadin. You take Coreg 6.25 mg 2 times daily as 1 of your blood pressure medications. Double this medication for now. Take 12.5 mg 2 times daily. Take the Coumadin as prescribed, I will refill the medication for you. Dr. Stovall will is in clinic tomorrow for your regular doctor. Call later today to request appointment for tomorrow. Return to the ER for weakness, chest pain or difficulty breathing. Prescriptions: New warfarin [Coumadin] 5 mg tablet 5 mg PO DAILY Qty: 60 RF: 1 No Action warfarin [Coumadin] 5 MG tablet 5 mg PO QDAY Qty: 0 RF: 0 carvedilol [Coreg] 6.25 MG tablet 6.25 mg PO BID Qty: 60 RF: 0 potassium chloride [K-Tab] 20 MEQ tablet extended release 20 meq PO QDAY Qty: 0 RF: 0 amlodipine [Norvasc] 5 MG tablet 5 mg PO QDAY Qty: 0 RF: 0 furosemide 20 MG tablet 20 mg PO QDAY Qty: 30 RF: 0 pantoprazole 20 MG tablet,delayed release (DR/EC) 20 mg PO BID Qty: 0 RF: 0 colchicine 0.6 MG tablet 0.6 mg PO BID Qty: 0 RF: 0 gabapentin 300 mg capsule 300 mg PO TID Qty: 90 RF: 2 multivitamin [Daily Multi-Vitamin] tablet 1 tab PO DAILY RF: 0 allopurinol 100 mg tablet 100 mg PO BID RF: 0 acetaminophen [Acetaminophen Extra Strength] 500 mg tablet 1,000 mg PO BID PRNRF: 0 dorzolamide-timolol 22.3-6.8 mg/mL drops 1 drop EYE-BOTH BID RF: 0 mirtazapine [Remeron SolTab] 15 mg tablet,disintegrating 7.5 mg PO DAILY RF: 0 brimonidine [Alphagan P] 0.1 % drops 1 drop EYE-RIGHT BID RF: 0
[2018-04-06 06:01] LABS: Add Manual Diff / Slide Review NO; Basophils Absolute Auto 100 /uL (0-100); Basophils Percent Auto 0.8 % (0-2); Eosinophils Absolute Auto 100 /uL (0-450); Hematocrit 39.3 % (36-46); Hemoglobin 12.6 g/dL (12.0-16.0); Lymphocytes Absolute Auto 2400 /uL (1100-4500); Mean Corpuscular Hemoglobin 31.1 PG (26-34); Mean Corpuscular Volume 97.4 fL (80-100); Monocytes Absolute Auto 1200 /uL (0-900); Monocytes Percent Auto 8.2 % (3-14); Neutrophils Absolute Auto 11000 /uL (1500-7000); Platelet Count 242 X10^3/uL (150-400); Red Blood Cell Count 4.04 X10^6/uL (4.0-5.2); Red Cell Distribution Width 14.4 % (11.6-14.8); White Blood Cell Count 14.9 X10^3/uL (4.5-11.0)
[2018-04-06] MEDS: SODIUM CHLORIDE 0.9% 1,000 ML 100 ML IV (06:02)
[2018-04-06 06:03] LABS: INR 1.1 (0.9-1.3); Prothrombin Time 12.7 SECONDS (10.1-12.7)
[2018-04-06 06:06] LABS: PTT Partial Thromboplastin Tim 29 SECONDS (26.4-36.2)
[2018-04-06 06:07] LABS: BUN Creatinine Ratio 15.4 (6-22); Blood Urea Nitrogen 40 mg/dL (7-17); Calcium 8.8 mg/dL (8.4-10.2); Carbon Dioxide 21 mmol/L (22-32); Chloride 107 mmol/L (98-107); Creatine Kinase 132 U/L (30-135); Estimated Glomerular Filt Rate 17.9 mL/min (>60); Glucose 137 mg/dL (80-110); HEMOLYSIS < 15 (0-50); Magnesium 1.5 mg/dL (1.6-2.3); Potassium 4.3 mmol/L (3.4-5.1); Sodium 138 mmol/L (137-145)
[2018-04-06 06:19] LABS: Troponin I 0.042 ng/mL (0.01-0.034)
[2018-04-06 06:22] LABS: CKMB % Relative Index 1.8 % (1.5-5.0); Creatine Kinase MB 2.36 ng/mL (<2.37)
[2018-04-06] MEDS: WARFARIN 5 MG TABLET 10 MG PO (07:46)
[2018-04-06] MEDS: CARVEDILOL 12.5 MG TABLET PO (07:46)
== END 2018-04-06 09:48 | disposition home or self-care (01) ==
PROVIDERS: Emergency Provider Emergency Medicine; PCP Family Medicine
DX: I48.91 Unspecified atrial fibrillation (principal)
CPT/HCPCS: 36591; 80048; 82550; 82553; 83735; 84484; 85025; 85610; 85730; 93005; 96361; 96374; 99283; 99284

== ENCOUNTER → 2018-05-23 15:20 | Outpatient (REF) | payer MEDICARE, OTHER, SELFPAY ==
[2018-05-23 16:10] LABS: INR 1.7 (0.9-1.3); Prothrombin Time 20.2 SECONDS (10.1-12.7)
== END ==
LOC: LAB 15:20
PROVIDERS: PCP Family Medicine; Visit Provider Family Medicine
DX: Z79.01 Long term (current) use of anticoagulants (principal)
CPT/HCPCS: 85610

== ENCOUNTER → 2018-06-04 15:46 | Outpatient (REF) | payer MEDICARE, OTHER, SELFPAY ==
[2018-06-04 16:49] LABS: Prothrombin Time 67.9 SECONDS (10.1-12.7)
[2018-06-04 16:50] LABS: INR 5.7 (0.9-1.3)
== END ==
LOC: LAB 15:46
PROVIDERS: PCP Family Medicine; Visit Provider Family Medicine
DX: Z79.01 Long term (current) use of anticoagulants (principal)
CPT/HCPCS: 85610

== ENCOUNTER → 2018-06-11 16:00 | Outpatient (REF) | payer MEDICARE, OTHER, SELFPAY ==
[2018-06-11 16:15] LABS: Prothrombin Time 23.5 SECONDS (10.1-12.7)
== END ==
LOC: LAB 16:00
PROVIDERS: PCP Family Medicine; Visit Provider Family Medicine
DX: Z79.01 Long term (current) use of anticoagulants (principal)
CPT/HCPCS: 85610

== ENCOUNTER → 2018-06-18 14:07 | Outpatient (REF) | payer MEDICARE, OTHER, SELFPAY ==
[2018-06-18 14:24] LABS: INR 2.7 (0.9-1.3); Prothrombin Time 31.3 SECONDS (10.1-12.7)
== END ==
LOC: LAB 14:07
PROVIDERS: PCP Family Medicine; Visit Provider Family Medicine
DX: Z79.01 Long term (current) use of anticoagulants (principal)
CPT/HCPCS: 85610

== ENCOUNTER → 2018-06-26 14:49 | Outpatient (REF) | payer MEDICARE, OTHER, SELFPAY ==
[2018-06-26 14:57] LABS: INR 4.3 (0.9-1.3); Prothrombin Time 51.5 SECONDS (10.1-12.7)
== END ==
LOC: LAB 14:49
PROVIDERS: PCP Family Medicine; Visit Provider Internal Medicine
DX: Z79.01 Long term (current) use of anticoagulants (principal)
CPT/HCPCS: 85610

== ENCOUNTER → 2018-07-04 11:51 | Outpatient (REF) | payer MEDICARE, OTHER, SELFPAY ==
[2018-07-04 11:59] LABS: INR 3.1 (0.9-1.3); Prothrombin Time 36.3 SECONDS (10.1-12.7)
== END ==
LOC: LAB 11:51
PROVIDERS: PCP Family Medicine; Visit Provider Family Medicine
DX: Z79.01 Long term (current) use of anticoagulants (principal)
CPT/HCPCS: 85610

== ENCOUNTER → 2018-07-11 10:50 | Outpatient (REF) | payer MEDICARE, OTHER, SELFPAY ==
[2018-07-11 11:05] LABS: INR 2.9 (0.9-1.3); Prothrombin Time 34.4 SECONDS (10.1-12.7)
== END ==
LOC: LAB 10:50
PROVIDERS: PCP Family Medicine; Visit Provider Family Medicine
DX: Z79.01 Long term (current) use of anticoagulants (principal)
CPT/HCPCS: 85610

== ENCOUNTER → 2018-07-18 15:28 | Outpatient (ROUT) | payer MEDICARE, OTHER, SELFPAY ==
[2018-07-18 15:47] LABS: INR 2.6 (0.9-1.3); Prothrombin Time 30.9 SECONDS (10.1-12.7)
== END ==
PROVIDERS: PCP Family Medicine; Visit Provider Family Medicine
DX: Z79.01 Long term (current) use of anticoagulants (principal)
CPT/HCPCS: 85610

== ENCOUNTER → 2018-07-24 09:55 | Outpatient (ROUT) | payer MEDICARE, OTHER, SELFPAY ==
[2018-07-24 10:10] LABS: INR 1.6 (0.9-1.3); Prothrombin Time 19.1 SECONDS (10.1-12.7)
== END ==
PROVIDERS: PCP Family Medicine; Visit Provider Family Medicine
DX: Z79.01 Long term (current) use of anticoagulants (principal)
CPT/HCPCS: 85610

== ENCOUNTER → 2018-07-30 11:33 | Outpatient (CLI) | payer MEDICARE, OTHER, SELFPAY ==
--- NOTE | 2018-07-30 | DI.US.S_ITS ---
PROCEDURE: US RENAL COMPLETE INDICATIONS: CKD STAGE 4(SEVERE) TECHNIQUE: Real-time scanning was performed of the kidneys and bladder, with image documentation. COMPARISON: None. FINDINGS: Kidneys: Kidneys are normal in size. Right kidney measures 9.9 cm long; left kidney measures 9.0 cm long. Right renal cortical thickness is 1.2 cm; left renal cortical thickness is 1.0 cm. Renal cortical echotexture is echogenic. No hydronephrosis or nephrolithiasis. No suspicious solid mass lesions. Bilateral simple appearing renal cysts measuring up to 5.0 cm on the right and upper 1.0 cm on the left. Bladder: Pre-void bladder volume is 101 mL. Post-void residual is zero mL. Pre-void images demonstrate no intraluminal masses or stones. On pre-void images, neither of the ureteral jets are noted with color Doppler interrogation. (Of note, ureteral jets may not be detectable in up to 25% of cases due to insufficient differences in specific gravity between ureteral and bladder urine). Miscellaneous: No free pelvic fluid. IMPRESSION: No hydronephrosis. Echogenic appearance of the kidneys bilaterally keeping with medical renal disease. Bilateral simple appearing renal cysts. Dictated by: Stan Vann M.D. on 07/30/2018 at 14:02 Approved by: Stan Vann M.D. on 07/30/2018 at 14:03
== END ==
PROVIDERS: PCP Family Medicine; Visit Provider Physician Assistant Medical
DX: N18.4 Chronic kidney disease, stage 4 (severe) (principal); N28.1 Cyst of kidney, acquired
CPT/HCPCS: 76770

== ENCOUNTER → 2018-07-31 15:41 | Outpatient (ROUT) | payer MEDICARE, OTHER, SELFPAY ==
[2018-07-31 17:04] LABS: INR 3.4 (0.9-1.3); Prothrombin Time 39.8 SECONDS (10.1-12.7)
== END ==
PROVIDERS: PCP Family Medicine; Visit Provider Family Medicine
DX: Z79.01 Long term (current) use of anticoagulants (principal)
CPT/HCPCS: 85610

== ENCOUNTER → 2018-08-07 11:40 | Outpatient (ROUT) | payer MEDICARE, OTHER, SELFPAY ==
[2018-08-07 12:00] LABS: INR 2.8 (0.9-1.3); Prothrombin Time 33.4 SECONDS (10.1-12.7)
== END ==
PROVIDERS: PCP Family Medicine; Visit Provider Family Medicine
DX: Z79.01 Long term (current) use of anticoagulants (principal)
CPT/HCPCS: 85610

== ENCOUNTER → 2018-08-14 11:56 | Outpatient (ROUT) | payer MEDICARE, OTHER, SELFPAY ==
[2018-08-14 12:09] LABS: INR 3.1 (0.9-1.3); Prothrombin Time 37.1 SECONDS (10.1-12.7)
== END ==
PROVIDERS: PCP Family Medicine; Visit Provider Family Medicine
DX: Z79.01 Long term (current) use of anticoagulants (principal)
CPT/HCPCS: 85610

== ENCOUNTER → 2018-08-21 13:33 | Outpatient (ROUT) | payer MEDICARE, OTHER, SELFPAY ==
[2018-08-21 13:53] LABS: Prothrombin Time 34.9 SECONDS (10.1-12.7)
== END ==
PROVIDERS: PCP Family Medicine; Visit Provider Family Medicine
DX: Z79.01 Long term (current) use of anticoagulants (principal)
CPT/HCPCS: 85610

== ENCOUNTER → 2018-08-28 16:22 | Outpatient (ROUT) | payer MEDICARE, OTHER, SELFPAY ==
[2018-08-28 16:44] LABS: INR 3.3 (0.9-1.3); Prothrombin Time 38.9 SECONDS (10.1-12.7)
== END ==
PROVIDERS: PCP Family Medicine; Visit Provider Family Medicine
DX: Z79.01 Long term (current) use of anticoagulants (principal)
CPT/HCPCS: 85610

== ENCOUNTER → 2018-09-05 12:07 | Outpatient (ROUT) | payer MEDICARE, OTHER, SELFPAY ==
[2018-09-05 12:18] LABS: INR 2.5 (0.9-1.3); Prothrombin Time 29.2 SECONDS (10.1-12.7)
== END ==
PROVIDERS: PCP Family Medicine; Visit Provider Family Medicine
DX: Z79.01 Long term (current) use of anticoagulants (principal)
CPT/HCPCS: 85610

== ENCOUNTER → 2018-09-12 15:37 | Outpatient (ROUT) | payer MEDICARE, OTHER, SELFPAY ==
[2018-09-12 16:06] LABS: INR 1.8 (0.9-1.3); Prothrombin Time 21.4 SECONDS (10.1-12.7)
== END ==
PROVIDERS: PCP Family Medicine; Visit Provider Family Medicine
DX: Z79.01 Long term (current) use of anticoagulants (principal)
CPT/HCPCS: 85610

== ENCOUNTER → 2018-10-05 15:38 | Outpatient (ROUT) | payer MEDICARE, OTHER, SELFPAY ==
[2018-10-05 15:52] LABS: Prothrombin Time 35.3 SECONDS (10.1-12.7)
== END ==
PROVIDERS: PCP Family Medicine; Visit Provider Family Medicine
DX: I48.91 Unspecified atrial fibrillation (principal)
CPT/HCPCS: 85610

== ENCOUNTER → 2018-10-16 15:33 | Outpatient (ROUT) | payer MEDICARE, OTHER, SELFPAY ==
[2018-10-16 15:46] LABS: Prothrombin Time 23.5 SECONDS (10.1-12.7)
== END ==
PROVIDERS: PCP Family Medicine; Visit Provider Family Medicine
DX: Z79.01 Long term (current) use of anticoagulants (principal)
CPT/HCPCS: 85610

== ENCOUNTER 2018-12-18 14:09 | Outpatient (CLI) | payer MEDICARE, OTHER, SELFPAY ==
[2018-12-18] VITALS (9 sets, daily range): BP systolic 151–202; BP diastolic 74–97; PULSE 50–53; RESP 16–18; O2SAT 50–99
--- NOTE | 2018-12-18 14:13 | DI.RAD.S_ITS ---
PROCEDURE: PAIN L/SI FACET INJ/BLK 1STL INDICATIONS: SPONDYLOSIS FINDINGS: Fluoroscopic spot filming was performed to verify placement of spinal needles at the L4-L5 and L5-S1 level(s), as labeled on the films. Appropriate location(s) of the needle tip(s) was confirmed by injection of iodinated contrast. IMPRESSION: Fluoroscopy for pain management. Dictated by: Niall Palma M.D. on 12/18/2018 at 18:12 Approved by: Niall Palma M.D. on 12/18/2018 at 18:12
[2018-12-18] MEDS: MIDAZOLAM 5 MG/5 ML VIAL IV (15:08)
[2018-12-18] MEDS: LIDOCAINE 1% 20 ML 10 ML INJ (15:11)
[2018-12-18] MEDS: IOPAMIDOL 15 ML VIAL 3 ML INJ (15:11)
[2018-12-18] MEDS: BUPIVACAINE 0.5% (PF) VIAL 2 ML INJ (15:12)
[2018-12-18] MEDS: BETAMETHASONE 30 MG/5 ML MDV 12 MG INJ (15:12)
--- NOTE | 2018-12-18 15:16 | PC.NURSE ---
ASSISTING PT OFF TABLE AND TRANSPORTING TO POST PROC AREA IN STABLE CONDITION. PASSING RN CARE OF PT OFF TO ASHLYN Hadley RN
--- NOTE | 2018-12-18 15:25 | P.PCN_ITS ---
Procedures Date/Time Date of procedure: 12/18/18 Time of procedure: 15:25 General Procedure description: PREOP DIAGNOSIS 1. FACET ARTHROPATHY 2. AXIAL LBP 3. MULTILEVEL DDD POST OP DIAGNOSIS 1. FACET ARTHROPATHY 2. AXIAL LBP 3. MULTILEVEL DDD PROCEDURES 1. FLUORSCOPICALLY GUIDED CONTRAST CONTROLLED FACET JOINT INJECTIONS BILATERAL L4/5, L5/S1 PHYSICIAN: Jorge L Wilburn, DO INDICATIONS Clementina is referred by Dr. Dietz for treatment of Axial LBP FINDINGS Multilevel Facet Arthropathy with Clinically significant axial LBP DESCRIPTION OF PROCEDURE Fluoroscopically guided, contrast-controlled bilateral L4/5, L5/S1 facet joint injections. Following review of allergy and review of potential side effects and complications, including, but not necessarily limited to, infection, allergic reaction, local tissue breakdown, stroke, temporary or permanent nerve injury, paralysis, and possible , the patient indicated that the patient understood and agreed to proceed. An informed consent document was signed by the patient, witnessed by a nurse, and placed in the patient's chart. Additionally, other treatment options including medications, modalities, and physical therapy were reviewed with the patient. After review of previous anaesthesic history and IV conscious sedation the patient was deemed safe to proceed with todays procedure with IV conscious sedation as ASA class II designation. Safety time-out was performed to confirm patient ID, procedure to be performed and site of procedure. IV sedation was accomplished with a combination of 2mg of Versed was administered by the RN after DO order, titrated to patient comfort during the course of the procedure while the patient remained responsive to all verbal commands In the prone position, following sterile prep and drape of the lumbar region, the posterior aspect of the L4/5, L5/S1 facet joints were identified fluoroscopically. The skin was anesthetized via a 25-gauge 1.5-inch needle with 1% lidocaine solution into the corresponding facet joints. At this point, a 22- gauge 3.5-inch spinal needle was atraumatically introduced and advanced under fluoroscopic guidance into the corresponding facet joints. Following negative aspiration, injections of approximately 0.2-cc of Isovue 200 confirmed interarticular placement without vascular uptake. The identical procedure was then performed at the L4/5, L5/S1 facet joints on the left. Radiological data, including multiple fluoroscopic views of the lumbosacral spine, reveal a spinal needle at the L4/5, L5/S1 facet joints bilaterally. Subsequent views show flow of contrast material both superiorly and inferiorly within the joint space without vascular or intrathecal uptake. At this point, a total of 0.5 cc including a mixture of 0.25cc Marcaine and 0.25cc betamethasone was injected without complication into each of the corresponding facet joints. The patient tolerated the procedure well without signs or symptoms of complications prior to transfer to the recovery area continued monitoring without incident. The patient was then transferred to the recovery area where they were observed for an appropriate period of time after the injection. The patient reported a VAS score of 7 prior to the procedure and a post- procedure VAS of 0. Total Fluoroscopy Time: 20.3 seconds Total Conscious Sedation Time: 24min POST OP INSTRUCTIONS The patient was provided a Pain Log to continue to record their response to the target-specific procedure prior to follow-up visit with their referring physician. Additionally, specific post-injection care instructions and a contact number to our office were provided if concerns arise regarding possible complications associated with the procedure are suspected. Jorge L Wilburn, Complications: none
--- NOTE | 2018-12-18 16:57 | PC.NURSE ---
Late entry: Discharge note-- VSS, O2 sat WNL, HR 50's normal for patient. Tolerating PO without nausea. Discharge instructions reviewed with good understanding. pain level 1/0. Patient comfortable. Stable and transfered to W/C without difficulty. Discharged to home w/c to car with friend.
== END 2018-12-18 15:55 ==
LOC: RAD 14:12
PROVIDERS: PCP Family Medicine; Visit Provider Physical Medicine & Rehabilitation
DX: M47.816 Spondylosis without myelopathy or radiculopathy, lumbar region (principal); M47.817 Spondylosis without myelopathy or radiculopathy, lumbosacral region; M51.36 Other intervertebral disc degeneration, lumbar region; M51.37 Other intervertebral disc degeneration, lumbosacral region; M54.5 Low back pain
CPT/HCPCS: 64493; 64494; 99152; J0702; J2250; J3010

== ENCOUNTER → 2019-01-05 10:32 | Outpatient (CLI) | payer MEDICARE, OTHER, SELFPAY ==
[2019-01-05 11:57] LABS: Prothrombin Time 101.4 SECONDS (10.1-12.7)
[2019-01-05 11:58] LABS: INR 8.4 (0.9-1.3)
== END ==
PROVIDERS: PCP Family Medicine; Visit Provider Family Medicine
DX: I48.91 Unspecified atrial fibrillation (principal); Z79.01 Long term (current) use of anticoagulants
CPT/HCPCS: 36415; 85610

== ENCOUNTER → 2019-01-07 11:56 | Outpatient (ROUT) | payer MEDICARE, OTHER, SELFPAY ==
[2019-01-07 12:03] LABS: INR 2.5 (0.9-1.3)
== END ==
PROVIDERS: PCP Family Medicine; Visit Provider Family Medicine
DX: I48.91 Unspecified atrial fibrillation (principal)
CPT/HCPCS: 85610

== ENCOUNTER → 2019-02-13 15:03 | Outpatient (ROUT) | payer MEDICARE, OTHER, SELFPAY ==
[2019-02-13 15:53] LABS: Prothrombin Time 22.8 SECONDS (10.1-12.7)
== END ==
PROVIDERS: PCP Family Medicine; Visit Provider Family Medicine
DX: Z79.01 Long term (current) use of anticoagulants (principal)
CPT/HCPCS: 85610

== ENCOUNTER 2019-02-19 12:02 | Outpatient (CLI) | payer MEDICARE, OTHER, SELFPAY ==
--- NOTE | 2019-02-19 12:03 | DI.RAD.S_ITS ---
PROCEDURE: PAIN L/S TRANSFORAMINAL INJECT INDICATIONS: SPONDYLOSIS FINDINGS: Fluoroscopic spot filming was performed to verify placement of spinal needles at the L3-L4 level(s), as labeled on the films. Appropriate location(s) of the needle tip(s) was confirmed by injection of iodinated contrast. IMPRESSION: Fluoroscopy for pain management. Dictated by: Niall Palma M.D. on 02/19/2019 at 14:55 Approved by: Niall Palma M.D. on 02/19/2019 at 14:56
[2019-02-19 12:40] VITALS: BP 151/67; PULSE 53; RESP 16; TEMP 36.8; O2SAT 97
--- NOTE | 2019-02-19 12:45 | P.PCN_ITS ---
Procedures Date/Time Date of procedure: 02/19/19 Time of procedure: 12:45 General Procedure description: PROVIDER: Jorge L Wilburn DO Operative Note PREOP DIAGNOSIS 1. FORAMINAL STENOSIS WITH LE SYMPTOMS, POST OP DIAGNOSIS 1. FORAMINAL STENOSIS WITH LE SYMPTOMS, PROCEDURES 1. FLUOROSCOPICALLY GUIDED CONTRAST CONTROLLED TRANSFORAMINAL EPIDURAL STEROID INJECTION - LEFT L3/4 TFESI SURGEON: Jorge L Wilburn, INDICATIONS Clementina is referred by Dr. Dietz for treatment of Foraminal Stenosis with left LE Symptoms FINDINGS Foraminal Nerve Root Compression secondary to disc disease and facet hypertrophy DESCRIPTION OF PROCEDURE Following review of allergy and review of potential side effects and complications, including, but not necessarily limited to, infection, allergic reaction, local tissue breakdown, stroke, temporary or permanent nerve injury, paralysis, and possible , the patient indicated that the patient understood and agreed to proceed. An informed consent document was signed by the patient, witnessed by a nurse, and placed in the patient's chart. Additionally, other treatment options including medications, modalities, and physical therapy were reviewed with the patient. After review of previous anaesthesic history and IV conscious sedation the patient was deemed safe to proceed with todays procedure with IV conscious sedation as ASA class II designation. Safety time-out was performed to confirm p atient ID, procedure to be performed and site of procedure. IV sedation was accomplished with a combination of 2mg of Versed was administered by the RN after DO order, titrated to patient comfort during the course of the procedure while the patient remained responsive to all verbal commands In the prone position following sterile prep and drape of the lumbar region, the left L3/4 posterior neuroforamen was identified fluoroscopically. The skin was anesthetized via a 25-gauge 1.5-inch needle with 1% lidocaine solution. At this point, a 25-gauge 3.5-inch spinal needle was atraumatically introduced and advanced under fluoroscopic guidance through the posterior left L3/4 neuroforamen to approximately the anterior aspect of the canal. Depth was confirmed on lateral view. Following negative aspiration, injection of approximately 1.5 cc of Isovue 200 under live fluoroscopy in the AP view confirmed excellent flow along the nerve root, into the epidural space without vascular or intrathecal uptake observed Radiological data, including multiple fluoroscopic views of the lumbosacral spine, reveal a spinal needle at the left L3/4 posterior neuroforamen. Subsequent views show flow of contrast material flowing superiorly and inferiorly along the nerve root confirming epidural flow. Subsequently, a test dose of 1.5 cc of 1% lidocaine solution was administered and patient was observed for two minutes for signs or symptoms of complications, including abdominal pain, shortness of breath, bilateral upper or lower extremity weakness, nausea and vomiting, prior to steroid injection. At this point, a total of 3cc or 20mg of dexamethasone and 6mg betamethasone was injected without incident. The patient tolerated the procedure well without signs or symptoms of complications prior to transfer to the recovery area continued monitoring without incident. The patient was then transferred to the recovery area where they were observed for an appropriate time after the injection. The patient reported a VAS score of 7 prior to the procedure and a post-procedure VAS of 0. Total Fluoroscopy Time: 24.2 seconds Total Conscious Sedation Time: 24min POST OP INSTRUCTIONS The patient was provided a Pain Log to continue to record their response to the target-specific procedure prior to follow-up visit with their referring physician. Additionally, specific post-injection care instructions and a contact number to our office were provided if concerns arise regarding possible complications associated with the procedure are suspected. Jorge L Wilburn, Complications: none
[2019-02-19 13:25] VITALS: BP 203/69; PULSE 54; RESP 16; O2SAT 100
[2019-02-19] MEDS: MIDAZOLAM 5 MG/5 ML VIAL IV (13:27)
[2019-02-19] MEDS: IOPAMIDOL 15 ML VIAL 3 ML INJ (13:29)
[2019-02-19 13:30] VITALS: BP 134/73; BP 163/72; PULSE 54; PULSE 56; RESP 16; O2SAT 97; O2SAT 99
[2019-02-19] MEDS: BUPIVACAINE 0.25% (PF) VIAL 2 ML INJ (13:30)
[2019-02-19] MEDS: BETAMETHASONE 30 MG/5 ML MDV 6 MG INJ (13:30)
[2019-02-19] MEDS: DEXAMETHASONE 10 MG/ML VIAL 20 MG INJ (13:30)
--- NOTE | 2019-02-19 13:33 | PC.NURSE ---
ASSISTING PT OFF TABLE AND TRANSPORTING TO POST PROC AREA IN STABLE CONDITION. PASSING RN CARE OF PT OFF TO ASHLYN Pryor RN.
[2019-02-19 13:35] VITALS: BP 140/74; PULSE 56; RESP 16; O2SAT 97
[2019-02-19 13:40] VITALS: BP 146/63; PULSE 56; RESP 16; O2SAT 97
[2019-02-19 13:45] VITALS: BP 149/83; PULSE 57; RESP 16; O2SAT 98
--- NOTE | 2019-02-19 13:45 | PC.NURSE ---
VERSED PREPARED AND GIVEN BY THIS RN. ALL OTHER MEDS PREPARED AND ADMINISTERED BY DR. CARPENTER.
== END 2019-02-19 14:05 | disposition home or self-care (01) ==
LOC: RAD 12:03
PROVIDERS: Family Provider Family Medicine; PCP Family Medicine; Visit Provider Physical Medicine & Rehabilitation
DX: M48.061 Spinal stenosis, lumbar region without neurogenic claudication (principal); M51.16 Intervertebral disc disorders with radiculopathy, lumbar region
CPT/HCPCS: 64483; 99152; J0702; J1100; J2250; J3010

== ENCOUNTER → 2019-02-21 15:51 | Outpatient (ROUT) | payer MEDICARE, OTHER, SELFPAY ==
[2019-02-21 16:57] LABS: Prothrombin Time 23.8 SECONDS (10.1-12.7)
== END ==
PROVIDERS: Family Provider Family Medicine; PCP Family Medicine; Visit Provider Family Medicine
DX: Z79.01 Long term (current) use of anticoagulants (principal)
CPT/HCPCS: 85610

== ENCOUNTER → 2019-03-23 11:12 | Outpatient (CLI) | payer MEDICARE, OTHER, SELFPAY ==
[2019-03-23 11:54] LABS: INR 1.4 (0.9-1.3); Prothrombin Time 15.7 SECONDS (10.1-12.7)
== END ==
PROVIDERS: Family Provider Family Medicine; PCP Family Medicine; Visit Provider Family Medicine
DX: I48.91 Unspecified atrial fibrillation (principal); Z79.01 Long term (current) use of anticoagulants
CPT/HCPCS: 36415; 85610

== ENCOUNTER → 2019-04-03 11:37 | Outpatient (ROUT) | payer MEDICARE, OTHER, SELFPAY ==
[2019-04-03 11:46] LABS: INR 3.8 (0.9-1.3); Prothrombin Time 44.9 SECONDS (10.1-12.7)
== END ==
PROVIDERS: Family Provider Family Medicine; PCP Family Medicine; Visit Provider Family Medicine
DX: Z79.01 Long term (current) use of anticoagulants (principal)
CPT/HCPCS: 85610

== ENCOUNTER 2019-04-05 12:52 | Outpatient (CLI) | payer MEDICARE, OTHER, SELFPAY ==
[2019-04-05] VITALS (10 sets, daily range): BP systolic 143–225; BP diastolic 67–93; PULSE 47–55; RESP 16; TEMP 36.1; O2SAT 93–100
--- NOTE | 2019-04-05 12:54 | DI.RAD.S_ITS ---
PROCEDURE: PAIN L/S FACET INJ/BLK 1ST TULIO COMPARISON: None. INDICATIONS: SPONDYLOSIS FINDINGS: Fluoroscopic spot filming was performed to verify placement of spinal needles at the L4, L5, S1 level(s), as labeled on the films. Appropriate location(s) of the needle tip(s) was confirmed by injection of iodinated contrast. Dictated by: Stan Vann M.D. on 04/05/2019 at 15:51 Approved by: Stan Vann M.D. on 04/05/2019 at 15:53
[2019-04-05] MEDS: fentaNYL 100 MCG/2 ML INJ 50 MCG IV (14:10)
[2019-04-05] MEDS: MIDAZOLAM 5 MG/5 ML VIAL IV (14:10)
[2019-04-05] MEDS: BUPIVACAINE 0.5% (PF) VIAL 2 ML INJ (14:25)
[2019-04-05] MEDS: IOPAMIDOL 15 ML VIAL 3 ML INJ (14:28)
[2019-04-05] MEDS: LIDOCAINE 1% 20 ML 10 ML INJ (14:28)
--- NOTE | 2019-04-05 14:32 | PC.NURSE ---
Post procedure note: VSS 155/73. HR. 47, 95% RA. RR 16 Patient able to sit up and transfer to w/c with stand by assist. Patient tolerated procedure well. VSS throughout. Handoff report given to Garrett Gottlieb RN
--- NOTE | 2019-04-05 14:32 | PM.PROC.1 ---
Procedures Date/Time Date of procedure: 04/05/19 Time of procedure: 14:32 General Procedure description: Procedure description: 1. FACET ARTHROPATHY PROCEDURES: 1. BILATERAL- L4, L5 and S1 DIAGNOSTIC MB BLOCKS with LA Anesthetic PHYSICIAN: Jorge L Wilburn, DO INDICATIONS Clementina is referred by for treatment of Bilateral Axial LBP. DESCRIPTION OF PROCEDURE Fluoroscopically guided, contrast-controlled bilateral L4, L5 and S1 medial branch blocks with 0.5cc of 0.5% Marcaine. Following review of allergy and review of potential side effects and complications, including, but not necessarily limited to, infection, allergic reaction, local tissue breakdown, nerve injury, paralysis, stroke and possible , the patient indicated that the patient understood and agreed to proceed. An informed consent document was signed by the patient, witnessed by a nurse, and placed in the patient's chart. After review of previous anaesthesic history and IV conscious sedation the patient was deemed safe to proceed with todays procedure with IV conscious sedation as ASA class II designation. Safety time-out was performed to confirm patient ID, procedure to be performed and site of procedure. IV sedation was accomplished with a combination of 2mg of Versed and 50mcg of Fentanyl was administered by the RN after DO order, titrated to patient comfort during the course of the procedure while the patient remained responsive to all verbal commands In the prone position, following sterile prep and drape of the lumbar region, the right L4, L5 and S1 anatomical location of the medial branch of the dorsal ramus was identified fluoroscopically. Subsequently an anesthetic skin wheal using 1% lidocaine solution was initiated at each of the anatomical spots. Subsequently then a 25-gauge 3.5-inch spinal needle was atraumatically introduced and advanced under fluoroscopic guidance at each of the corresponding sites at the right L4, L5 and S1 MB. After negative aspiration, 0.2cc of Isovue 200 was injected, confirming placement without vascular or intrathecal uptake. Subsequently then 0.5cc of 0.5% Marcaine solution was injected at each of the corresponding sites at the right L4, L5 and S1 medial branch locations. The identical procedure was replicated on the left. The patient tolerated the procedure well without signs or symptoms of complications prior to transfer to the recovery area continued monitoring without incident. Post-procedure, the patient was monitored initiating provocative activities to measure the amount of relief from block of the facetogenic pain. The patient reported a VAS of 7 prior to the procedure and a post-procedure VAS of 1. It has been a pleasure to assist in the diagnostic and therapeutic care of your patient. Total Fluoroscopy Time: 23 seconds Total Conscious Sedation Time: 24min POST OP INSTRUCTIONS The patient was provided with a Pain Log to complete over the next several hours and subsequent days prior to the patient's follow up with the ordering physician. If the patient has it operations analyst relief to the solution applied, then they may be a candidate for medial branch rhizotomy. The patient is aware, was provided, once again, with a Pain Log and will follow up with the referring physician for review and clinical correlation Jorge L Wilburn DO Complications: none
--- NOTE | 2019-04-05 14:44 | P.PCN_ITS ---
Procedures Date/Time Date of procedure: 04/05/19 Time of procedure: 14:44 General Procedure description: Procedure description: 1. FACET ARTHROPATHY PROCEDURES: 1. BILATERAL- L4, L5 and S1 DIAGNOSTIC MB BLOCKS with LA Anesthetic PHYSICIAN: Jorge L Wilburn, DO INDICATIONS Clementina is referred by for treatment of Bilateral Axial LBP. DESCRIPTION OF PROCEDURE Fluoroscopically guided, contrast-controlled bilateral L4, L5 and S1 medial branch blocks with 0.5cc of 0.5% Marcaine. Following review of allergy and review of potential side effects and complications, including, but not necessarily limited to, infection, allergic reaction, local tissue breakdown, nerve injury, paralysis, stroke and possible , the patient indicated that the patient understood and agreed to proceed. An informed consent document was signed by the patient, witnessed by a nurse, and placed in the patient's chart. After review of previous anaesthesic history and IV conscious sedation the patient was deemed safe to proceed with todays procedure with IV conscious sedation as ASA class II designation. Safety time-out was performed to confirm patient ID, procedure to be performed and site of procedure. IV sedation was accomplished with a combination of 2mg of Versed and 50mcg of Fentanyl was administered by the RN after DO order, titrated to patient comfort during the course of the procedure while the patient remained responsive to all verbal commands In the prone position, following sterile prep and drape of the lumbar region, the right L4, L5 and S1 anatomical location of the medial branch of the dorsal ramus was identified fluoroscopically. Subsequently an anesthetic skin wheal using 1% lidocaine solution was initiated at each of the anatomical spots. Subsequently then a 22-gauge 3.5-inch spinal needle was atraumatically introduced and advanced under fluoroscopic guidance at each of the corresponding sites at the right L4, L5 and S1 MB. After negative aspiration, 0.2cc of Isovue 200 was injected, confirming placement without vascular or intrathecal uptake. Subsequently then 0.5cc of 0.5% Marcaine solution was injected at each of the corresponding sites at the right L4, L5 and S1 medial branch locations. The identical procedure was replicated on the left. The patient tolerated the procedure well without signs or symptoms of complications prior to transfer to the recovery area continued monitoring withou t incident. Post-procedure, the patient was monitored initiating provocative activities to measure the amount of relief from block of the facetogenic pain. The patient reported a VAS of 7 prior to the procedure and a post-procedure VAS of 1. It has been a pleasure to assist in the diagnostic and therapeutic care of your patient. Total Fluoroscopy Time: 26seconds Total Conscious Sedation Time: 24min POST OP INSTRUCTIONS The patient was provided with a Pain Log to complete over the next several hours and subsequent days prior to the patient's follow up with the ordering physician. If the patient has employment service specialist relief to the solution applied, then they may be a candidate for medial branch rhizotomy. The patient is aware, was provided, once again, with a Pain Log and will follow up with the referring physician for review and clinical correlation Jorge L Wilburn DO Complications: none
--- NOTE | 2019-04-05 14:52 | PC.NURSE ---
ACCEPTED CARE OF PT IN POST PROC AREA AT 1445. VSS, A&OX4, STEADY ON FEET.
== END 2019-04-05 15:25 | disposition home or self-care (01) ==
LOC: RAD 12:53
PROVIDERS: Family Provider Family Medicine; PCP Family Medicine; Visit Provider Physical Medicine & Rehabilitation
DX: M47.817 Spondylosis without myelopathy or radiculopathy, lumbosacral region (principal); M47.816 Spondylosis without myelopathy or radiculopathy, lumbar region; M54.5 Low back pain
CPT/HCPCS: 64493; 64494; 99152; J2250; J3010

== ENCOUNTER → 2019-05-30 10:52 | Outpatient (CLI) | payer MEDICARE, OTHER, SELFPAY ==
[2019-05-30 13:17] VITALS: BP 167/83; PULSE 56; RESP 18; TEMP 36.8; O2SAT 96
--- NOTE | 2019-05-30 13:39 | PC.NURSE ---
SYSTOLIC BP, CREA ELEVATED, GFR DOWN: THUS SPOKE WITH DR. FRIEDMAN AND REPORTED THESE VALUES WELL K, NA AND MG. HE STATED IT IS OK TO GO AHEAD AND ADMINITSTER IRON AND ARANESP TODAY ORDERED.
[2019-05-30] MEDS: DARBEPOETIN 40 MCG/0.4 ML SYRINGE SUBCUT (13:46)
[2019-05-30] MEDS: IRON SUCROSE IV (13:46)
[2019-05-30] MEDS: SODIUM CHLORIDE 0.9% IV (13:46)
== END ==
PROVIDERS: Family Provider Family Medicine; PCP Family Medicine; Referring Provider Internal Medicine Nephrology; Visit Provider Internal Medicine Nephrology
DX: N18.9 Chronic kidney disease, unspecified (principal); D63.1 Anemia in chronic kidney disease
CPT/HCPCS: 96365; 96366; 96372; J0881; J1756

== ENCOUNTER → 2019-07-29 10:15 | Outpatient (CLI) | payer MEDICARE, OTHER, SELFPAY ==
[2019-07-29 11:34] LABS: Add Manual Diff / Slide Review NO; Basophils Absolute Auto 100 /uL (0-100); Basophils Percent Auto 0.8 % (0-2); Eosinophils Absolute Auto 200 /uL (0-450); Eosinophils Percent Auto 2.9 % (2-4); Hematocrit 35.2 % (36-46); Hemoglobin 11.5 g/dL (12.0-16.0); Lymphocytes Absolute Auto 1400 /uL (1100-4500); Lymphocytes Percent Auto 19.3 % (25-40); Mean Corpuscular HGB Conc 32.7 % (30-36); Mean Corpuscular Hemoglobin 31.2 PG (26-34); Mean Corpuscular Volume 95.4 fL (80-100); Monocytes Absolute Auto 500 /uL (0-900); Monocytes Percent Auto 7.2 % (3-14); Neutrophils Absolute Auto 5200 /uL (1500-7000); Neutrophils Percent Auto 69.8 % (50-75); Platelet Count 185 X10^3/uL (150-400); Red Blood Cell Count 3.69 X10^6/uL (4.0-5.2); Red Cell Distribution Width 18.7 % (11.6-14.8); White Blood Cell Count 7.4 X10^3/uL (4.5-11.0)
[2019-07-29 11:48] LABS: Alanine Aminotransferase 15 IU/L (<35); Albumin Globulin Ratio 1.2 (1.0-2.8); Alkaline Phosphatase 79 U/L (38-126); Aspartate Aminotransferase 22 IU/L (14-36); BUN Creatinine Ratio 9.9 (6-22); Bilirubin Total 0.4 mg/dL (0.2-1.3); Blood Urea Nitrogen 32 mg/dL (7-17); Carbon Dioxide 21 mmol/L (22-32); Chloride 111 mmol/L (98-107); Estimated Glomerular Filt Rate 13.9 mL/min (>60); Globulin 3.3 g/dL (1.7-4.1); Glucose 108 mg/dL (80-110); HEMOLYSIS < 15 (0-50); Potassium 4.5 mmol/L (3.4-5.1); Sodium 141 mmol/L (137-145); Total Protein 7.3 g/dL (6.3-8.2)
[2019-07-29 11:49] LABS: Iron 89 ug/dL (37-170)
[2019-07-29 11:58] LABS: Total Iron Binding Capacity 325 ug/dL (265-497)
[2019-07-29 12:24] LABS: Ferritin 214 ng/mL (11-264)
[2019-07-29] MEDS: DARBEPOETIN 40 MCG/0.4 ML SYRINGE SUBCUT (12:43)
[2019-07-29 12:48] VITALS: BP 157/69; PULSE 52; RESP 16; TEMP 36.6; O2SAT 97
== END ==
PROVIDERS: Family Provider Family Medicine; PCP Family Medicine; Referring Provider Family Medicine; Visit Provider Internal Medicine Nephrology
DX: N18.9 Chronic kidney disease, unspecified (principal); D63.1 Anemia in chronic kidney disease
CPT/HCPCS: 36415; 80053; 82728; 83540; 83550; 85025; 96372; J0881

== ENCOUNTER → 2019-08-12 13:53 | Outpatient (CLI) | payer MEDICARE, OTHER, SELFPAY ==
[2019-08-12 14:51] VITALS: BP 190/86; PULSE 57; RESP 18; TEMP 36.8; O2SAT 96
--- NOTE | 2019-08-12 15:58 | PC.NURSE ---
HYPERTENSION Upon arrival to clinic patient's BP on left arm was 205/84. Pt reported that she had PT this morning and has had indigestion all morning. Stated I was burping all through PT. BP was checked again on right arm (193/84) and manually on left arm (190/86). Pt denied chest pain, double vision and diaphoresis. All other vitals normal (see chart). Heart regular rate and lungs clear, no abnormalities noted. Pt has hx of a-fib and takes Carvedilol daily. Borborygmi noted on auscultation of abdomen. Triage nurse made aware and contacted MD for parameters to hold Aranesp. Encouraged Pt to check BP regularly at home and go to the ED if symptoms persist or get worse. Pt voiced understanding.
== END ==
PROVIDERS: Family Provider Family Medicine; PCP Family Medicine; Referring Provider Internal Medicine Nephrology; Visit Provider Internal Medicine Nephrology
DX: N18.9 Chronic kidney disease, unspecified (principal); D63.1 Anemia in chronic kidney disease; I10 Essential (primary) hypertension
CPT/HCPCS: 36415

== ENCOUNTER → 2019-08-17 10:32 | Outpatient (CLI) | payer MEDICARE, OTHER, SELFPAY ==
[2019-08-18 07:30] LABS: COVID19 Sendout Not Detected (Not Detect)
== END ==
PROVIDERS: Family Provider Family Medicine; PCP Family Medicine; Visit Provider Physician Assistant
DX: Z01.812 Encounter for preprocedural laboratory examination (principal)
CPT/HCPCS: 87635

== ENCOUNTER 2019-08-20 10:28 | Outpatient (CLI) | payer MEDICARE, OTHER, SELFPAY ==
[2019-08-20] VITALS (15 sets, daily range): BP systolic 159–227; BP diastolic 75–97; PULSE 51–59; RESP 15–17; TEMP 36; O2SAT 94–98
--- NOTE | 2019-08-20 10:30 | DI.RAD.S_ITS ---
PROCEDURE: PAIN L/S MED/LAT N RFA BILAT INDICATIONS: SPONDYLOSIS FINDINGS: Fluoroscopic spot filming was performed to verify placement of spinal needles at the L4, L5, S1 level(s), as labeled on the films. Appropriate location(s) of the needle tip(s) was confirmed by injection of iodinated contrast. Dictated by: Stan Vann M.D. on 08/20/2019 at 13:03 Approved by: Stan Vann M.D. on 08/20/2019 at 13:04
--- NOTE | 2019-08-20 11:45 | PC.NURSE ---
DR CARPENTER NOTIFIED OF HIGH BP, NO NEW ORDERS AND DR CARPENTER DECIDED IT WAS SAFE TO SEDATE PT AND CONTINUE PROCEDURE. WILL CONTINUE TO MONITOR.
[2019-08-20] MEDS: fentaNYL 100 MCG/2 ML INJ 50 MCG IV (11:46)
[2019-08-20] MEDS: MIDAZOLAM 5 MG/5 ML VIAL IV (11:46)
[2019-08-20] MEDS: BUPIVACAINE 0.5% (PF) VIAL 2 ML INJ (11:57)
[2019-08-20] MEDS: LIDOCAINE 1% 20 ML 10 ML INJ (11:57)
--- NOTE | 2019-08-20 12:18 | PC.NURSE ---
ASSISTING PT OFF TABLE AND TRANSPORTING TO POST PROC AREA IN STABLE CONDITION. PASSING RN CARE OFF TO RAJ MYERS.
--- NOTE | 2019-08-20 12:26 | P.PCN_ITS ---
Procedures Date/Time Date of procedure: 08/20/19 Time of procedure: 12:26 General Procedure description: PREOP DIAGNOSIS 1. RECALCITRANT FACET ARTHROPATHY, POST OP DIAGNOSIS 1. RECALCITRANT FACET ARTHROPATHY PROCEDURES 1. BILATERAL L4 AND L5 MEDIAL BRANCH RADIOFREQUENCY NEUROTOMY AND S1 DORSAL RAMUS BRANCH RADIOFREQUENCY NEUROTOMY, PHYSICIAN: Jorge L Wilburn DO INDICATIONS: Clementina is referred by for treatment of facet arthropathy. DESCRIPTION OF PROCEDURE Bilateral L4 and L5 medial branch radiofrequency neurotomy and bilateral S1 dorsal ramus radiofrequency neurotomy under fluoroscopy with conscious sedation. The patient is well known to this clinic having undergone previous facet injections with good but temporary relief. The patient has experienced appropriate, concordant relief with previous facet and median branch blocks but the patient's pain has been recalcitrant to further conservative measures. Therefore, based upon the patient's relief and persistent symptoms, the patient is considered an appropriate candidate for facet rhizotomy. All of the patient's questions regarding the risks versus benefits of the procedure, including, but not limited to, bleeding, infection, temporary as well as lasting nerve injury, paralysis, stroke, and , as well treatment alternatives were answered to satisfaction. After obtaining informed consent, denial of pertinent drug allergies, as well as being made aware of the potential risks of bleeding, infection, spinal cord trauma, paralysis, temporary and permanent nerve damage, seizure, stroke, and possible , the patient was brought to the fluoroscopy suite and positioned prone on the fluoroscopy table. The lumbar region was prepped with Betadine and covered with a fenestrated drape in the usual sterile fashion. Appropriate monitors applied including pulse oximeter, pulse, and blood pressure for regular monitoring throughout the procedure. After review of previous anaesthesic history and IV conscious sedation the patient was deemed safe to proceed with todays procedure with IV conscious sedation as ASA class II designation. Safety time-out was performed to confirm patient ID, procedure to be performed and site of procedure. IV sedation was accomplished with a combination of 3mg of Versed and 50mcg of Fentanyl administered by the RN after DO order, titrated to patient comfort during the course of the procedure while the patient remained responsive to all verbal commands. After local infiltration using 1% lidocaine, under fluoroscopic guidance, a 10- cm RF insulated needle with a 10-mm active tip was positioned parallel to the junction of the right sacral ala and the superior articulating process where the S1 dorsal ramus resides. Needle placement was confirmed with motor stimulation of .5v on the right which produced local stimulation without radicular component. The stimulation was then increased to 1.5v with, once again, only local multifidus stimulation without radicular component. The needle was then removed and the identical procedure was performed along the length of the right L5 medial branch with motor stimulation at .7v on the right. The identical procedure was once again performed along the length of the right L4 medial branch with motor stimulation of .5v on the right. The medial branches were then anesthetised with 0.5% Marcaine. This was then followed by two discreet lesions performed at 80 degrees Celsius for 90 seconds each. The identical procedure was repeated on the left. The patient tolerated the procedure well without signs or symptoms of complications prior to transfer to the recovery area continued monitoring without incident. The patient was then transferred to the recovery area where they were observed for an appropriate period of time after the injection. The patient reported a VAS score of 7 prior to the procedure and a post-procedure VAS of 0. Total Fluoroscopy Time: 19 seconds Total Conscious Sedation Time: 34min POST OP INSTRUCTIONS The patient was provided a Pain Log to continue to record the patient's response to the target-specific procedure prior to the patient's follow-up visit with the referring physician. Additionally, specific post-injection care instructions and a contact number to our office were provided if concerns arise regarding possible complications associated with the procedure are suspected. Jorge L Wilburn DO Complications: none
--- NOTE | 2019-08-20 13:37 | PC.NURSE ---
pt returned to pre proc room via wc. Assisted from wc to recovery chair with 1SBA. Resumed monitoring by patti Valderrama
== END 2019-08-20 13:15 | disposition home or self-care (01) ==
LOC: RAD 10:29
PROVIDERS: Family Provider Family Medicine; PCP Family Medicine; Referring Provider Physical Medicine & Rehabilitation; Visit Provider Physical Medicine & Rehabilitation
DX: M47.817 Spondylosis without myelopathy or radiculopathy, lumbosacral region (principal); M47.816 Spondylosis without myelopathy or radiculopathy, lumbar region
CPT/HCPCS: 64635; 64636; 99152; 99153; J2250; J3010

== ENCOUNTER → 2019-08-28 15:04 | Outpatient (CLI) | payer MEDICARE, OTHER, SELFPAY ==
[2019-08-28 15:45] VITALS: BP 143/68; PULSE 59; RESP 18; TEMP 37.5; O2SAT 95
[2019-08-28] MEDS: DARBEPOETIN 40 MCG/0.4 ML SYRINGE SUBCUT (16:15)
== END ==
PROVIDERS: Family Provider Family Medicine; PCP Family Medicine; Referring Provider Internal Medicine Nephrology; Visit Provider Internal Medicine Nephrology
DX: N18.9 Chronic kidney disease, unspecified (principal); D63.1 Anemia in chronic kidney disease
CPT/HCPCS: 36415; 80053; 82728; 83540; 83550; 85014; 85018; 85025; 96372; J0881

== ENCOUNTER → 2019-09-18 13:03 | Outpatient (CLI) | payer MEDICARE, OTHER, SELFPAY ==
[2019-09-18 13:29] VITALS: BP 136/78; PULSE 56; RESP 16; TEMP 36.7; O2SAT 96
== END ==
PROVIDERS: Family Provider Family Medicine; PCP Family Medicine; Referring Provider Student in an Organized Health Care Education/Training Program; Visit Provider Internal Medicine Nephrology
DX: N18.9 Chronic kidney disease, unspecified; D63.1 Anemia in chronic kidney disease
CPT/HCPCS: 36415

== ENCOUNTER → 2019-10-02 14:01 | Outpatient (CLI) | payer MEDICARE, OTHER, SELFPAY ==
[2019-10-02 14:51] LABS: Hemoglobin 11.1 g/dL (12.0-16.0)
[2019-10-02 16:04] LABS: Blood Urea Nitrogen 51 mg/dL (7-17); Calcium 9.1 mg/dL (8.4-10.2); Carbon Dioxide 23 mmol/L (22-32); Chloride 109 mmol/L (98-107); Glucose 83 mg/dL (80-110); HEMOLYSIS < 15 (0-50); Potassium 5.1 mmol/L (3.4-5.1); Sodium 139 mmol/L (137-145)
[2019-10-02 16:42] LABS: BUN Creatinine Ratio 14.2 (6-22); Estimated Glomerular Filt Rate 12.3 mL/min (>60)
== END ==
PROVIDERS: Family Provider Family Medicine; PCP Family Medicine; Referring Provider Student in an Organized Health Care Education/Training Program; Visit Provider Student in an Organized Health Care Education/Training Program
DX: N18.5 Chronic kidney disease, stage 5 (principal); D63.1 Anemia in chronic kidney disease
CPT/HCPCS: 36415; 80048; 85018

== ENCOUNTER → 2019-10-02 15:26 | Outpatient (CLI) | payer MEDICARE, OTHER, SELFPAY | PROVIDERS: Family Provider Family Medicine; PCP Family Medicine; Referring Provider Family Medicine; Visit Provider Student in an Organized Health Care Education/Training Program | DX: N18.5 Chronic kidney disease, stage 5 (principal); D63.1 Anemia in chronic kidney disease ==

== ENCOUNTER → 2019-10-08 15:45 | Outpatient (ROUT) | payer MEDICARE, OTHER, SELFPAY ==
[2019-10-08 15:59] LABS: INR 1.5 (0.9-1.3)
== END ==
PROVIDERS: Family Provider Family Medicine; PCP Family Medicine; Visit Provider Family Medicine
DX: I48.91 Unspecified atrial fibrillation (principal); Z79.01 Long term (current) use of anticoagulants
CPT/HCPCS: 85610

== ENCOUNTER 2019-10-30 15:37 | Emergency (ER) | payer MEDICARE, OTHER, SELFPAY ==
[2019-10-30] VITALS (9 sets, daily range): BP systolic 152–213; BP diastolic 73–108; PULSE 47–50; RESP 13–24; TEMP 36.1; O2SAT 97–100
--- NOTE | 2019-10-30 16:28 | PC.NURSE ---
Patient denies chest pain or SOB. Patient reports episodes of not feeling well. it seems more visual but my glaucoma doctor said my vision was fine . Seen at oncology today for blood pressure issues and spells patient states she is behind on her water intake for the day and noticed last time she felt terrible in the past was when her GFR was low.
[2019-10-30 16:47] LABS: Add Manual Diff / Slide Review NO; Basophils Absolute Auto 100 /uL (0-100); Basophils Percent Auto 1.1 % (0-2); Eosinophils Absolute Auto 0 /uL (0-450); Eosinophils Percent Auto 0.4 % (2-4); Hematocrit 34.6 % (36-46); Hemoglobin 11.7 g/dL (12.0-16.0); Lymphocytes Absolute Auto 3100 /uL (1100-4500); Lymphocytes Percent Auto 27.7 % (25-40); Mean Corpuscular HGB Conc 33.7 % (30-36); Mean Corpuscular Hemoglobin 33.2 PG (26-34); Mean Corpuscular Volume 98.4 fL (80-100); Monocytes Absolute Auto 900 /uL (0-900); Monocytes Percent Auto 8.3 % (3-14); Neutrophils Absolute Auto 6900 /uL (1500-7000); Neutrophils Percent Auto 62.5 % (50-75); Platelet Count 209 X10^3/uL (150-400); Red Blood Cell Count 3.51 X10^6/uL (4.0-5.2); White Blood Cell Count 11.1 X10^3/uL (4.5-11.0)
--- NOTE | 2019-10-30 16:53 | ED.DIZZY ---
HPI - Dizziness <Tigre Chilel MD - Last Filed: 11/05/19 04:41> General Chief Complaint: Dizziness Stated Complaint: high blood pressure, sent by Oncology Time Seen by Provider: 10/30/19 16:26 Source: patient Mode of arrival: Ambulatory History of Present Illness HPI Narrative: Patient here for lightheadedness dizziness. Denies any chest pain headache dyspnea numbness tingling or weakness. Patient was at hematology oncology office today for injection for enhancing her hemoglobin due to chronic renal insufficiency. 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 Patient continues to make urine. Is not on dialysis at this time. Similar event happened 2 weeks ago at home she remembered she had eaten all day and was lightheaded just like today. She ate food laid down rested and symptoms resolved. Her blood pressure at the time systolic was 90. Today at the Hematology office patient states she did eat breakfast this morning but it was passed lunchtime and she was hungry and she felt lightheaded. Orthostatics were done and office had noted it dropped by 50 points on systolic. They called primary care office and was instructed to sent patient here to the emergency department. Patient denies any confusion. No headache no chest pain no back pain. No recent illness cough cold congestion nausea vomiting diarrhea fluid loss black stools bloody stools. History of atrial fibrillation but denies any palpitations. complaint: lightheadedness Related Data Home Medications Medication Instructions Recorded Confirmed acetaminophen 500 mg tablet 1,000 mg PO BID PRN tab 10/12/17 09/25/19 brimonidine 0.1 % eye drops 1 drop EYE-RIGHT BID ml 10/12/17 09/25/19 dorzolamide 22.3 mg-timolol 6.8 1 drop EYE-BOTH BID ml 10/12/17 09/25/19 mg/mL eye drops multivitamin 1 tab PO DAILY 12/29/17 09/25/19 biotin 2,500 mcg capsule 5 mg PO DAILY cap 03/04/19 09/25/19 carvedilol 6.25 mg tablet 25 mg PO BID #60 tab 03/04/19 09/25/19 allopurinol 100 mg tablet 300 mg PO DAILY tab 09/25/19 09/25/19 amiodarone 200 mg tablet mg PO 09/25/19 09/25/19 furosemide 20 mg tablet 20 mg PO QDAY PRN #30 tab 09/25/19 09/25/19 isosorbide mononitrate 30 mg mg PO 09/25/19 09/25/19 tablet,extended release 24 hr levothyroxine 25 mcg tablet mcg PO 09/25/19 09/25/19 mirtazapine 15 mg disintegrating 15 mg PO DAILY tab 09/25/19 09/25/19 tablet warfarin 5 mg tablet 5 mg PO DAILY tab 09/25/19 Allergies Allergy/AdvReac Type Severity Reaction Status Date / Time codeine [CODEINE] Allergy Severe ANAPHYLACTI Verified 09/25/19 10:25 C peanut [PEANUT] Allergy Severe ANAPHYLACTI Verified 09/25/19 10:25 C propofol AdvReac hallucinations, Verified 09/25/19 10:25 confusion Review of Systems <Tigre Chilel MD - Last Filed: 11/05/19 04:41> Review of Systems Narrative: GENERAL: Denies chills, fatigue, malaise, fever, sweats. HEENT: Denies sinus pain, ear pain, sore throat, difficulty swallowing, dizziness. RESPIRATORY: Denies dyspnea, cough, wheezing, hemoptysis, sputum. CARDIOVASCULAR: Denies chest pain, palpitations, orthopnea, edema, GASTROINTESTINAL: Denies nausea, vomiting, abdominal pain, diarrhea, constipation, melena. : Denies dysuria, frequency, incontinence, hematuria, urinary retention. MUSCULOSKELETAL: denies weakness, joint pain, or bony pain SKIN: Denies rash, skin lesions, or other NEUROLOGIC: Denies weakness, headache, numbness, change in speech, confusion, seizures, incoordination. Complains of dizziness PSYCHIATRIC: No concerning psychosocial issues. ROS Unobtainable: All systems reviewed & are unremarkable except as noted in HPI and below Patient History <Tigre Chilel MD - Last Filed: 11/05/19 04:41> Medical History Atrial fibrillation (Acute) Chronic anticoagulation (Chronic) Foraminal stenosis of lumbar region (Chronic) Gastroesophageal reflux disease (Acute) Gout (Acute) Hypertension (Acute) Surgical History H/O tubal ligation (Acute) History of cardiac radiofrequency ablation (Acute) Hx of cholecystectomy (Acute) Hx of tonsillectomy (Acute) Family History Mother Lung cancer Social History Smoking Status: Never smoker Smoking Status: Never smoker Substance Use Type: does not use Exam <Tigre Chilel MD - Last Filed: 11/05/19 04:41> Narrative Exam Narrative: GENERAL: patient appears stated age. Well-nourished, well-developed patient, in no distress, not toxic HEAD: Atraumatic. Normocephalic. EYES: Pupils equal round and reactive. Extraocular motions intact. No scleral icterus. No injection or drainage. ENT: Nose without bleeding, purulent drainage. Throat without erythema, tonsillar hypertrophy or exudate. Airway patent. NECK: Trachea midline. Non tender CARDIOVASCULAR: Regular rate and rhythm without murmurs, gallops, or rubs. RESPIRATORY: Clear to auscultation. Breath sounds equal bilaterally. No wheezes, rales, or rhonchi. GASTROINTESTINAL: Abdomen soft, non-tender, nondistended. EXTREMITIES: No edema or joint tenderness. BACK: Nontender without deformity or crepitance. No flank tenderness. NEURO: AOx4 clear speech no facial droop light touch intact to bilateral face hands and legs. 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 Negative pronator drift. Steady. Gait no footdrop. Steady Romberg. SKIN: No rash or erythema of visible areas PSYCH: Not anxious, is cooperative Initial Vital Signs Initial Vital Signs: Vital Signs Temperature 97.0 F L 10/30/19 15:47 Pulse Rate 48 L 10/30/19 15:47 Respiratory Rate 18 10/30/19 15:47 Blood Pressure 193/108 H 10/30/19 15:47 Pulse Oximetry 100 10/30/19 15:47 <Jose Kinney DO - Last Filed: 10/30/19 20:59> Initial Vital Signs Initial Vital Signs: Vital Signs Temperature 97.0 F L 10/30/19 15:47 Pulse Rate 48 L 10/30/19 15:47 Respiratory Rate 18 10/30/19 15:47 Blood Pressure 193/108 H 10/30/19 15:47 Pulse Oximetry 100 10/30/19 15:47 Scores <Tigre Chilel MD - Last Filed: 11/05/19 04:41> NIH Stroke Scale Level of Conciousness: Alert, keenly responsive Ask month/age: Answers both questions correctly. Open/close eyes, close hand: Performs both tasks correctly Best gaze horizontal: Normal Visual hayward: No visual loss Facial palsy: Normal symetrical movement Left arm drift: No drift for full 10 sec Right arm drift: No drift for full 10 sec Left leg drift: No drift for full 10 sec Right leg drift: No drift for full 10 sec Limb ataxia: Absent Sensory on face/arms/legs: Normal, no sensory loss Best language: No aphasia, normal Dysarthria: Normal Extinction or inattention: No abnormality Total NIH Stroke scale score: 0 Course <Tigre Chilel MD - Last Filed: 11/05/19 04:41> Orders Ordered: Discontinued Medications Hydralazine HCl (Apresoline) 10 mg IV NOW ONE Stop: 10/30/19 18:36 Last Admin: 10/30/19 18:49 Dose: 10 mg Documented by: RUBY Sodium Chloride (Normal Saline 0.9%) 1,000 mls @ 150 mls/hr IV CONT AMMON Last Infusion: 10/30/19 19:32 Dose: 150 mls/hr Documented by: Admin: 10/30/19 18:10 Dose: 150 mls/hr Documented by: RUBY Reevaluation(s) Reevaluation #1: NIH score is 0. Patient states dizziness has improved but blood pressure remains elevated. She does not take blood pressure at night only in mornings. Baseline systolic is usually 140. At this time will give hydralazine as patient's heart rate baseline is 50 Time: 18:32 Vital Signs Vital signs: Vital Signs - 8 hr 10/30/19 15:47 10/30/19 17:51 10/30/19 18:24 Temperature 97.0 F L Pulse Rate 48 L Pulse Rate [Orthostatic Lying] 49 L Pulse Rate [Orthostatic Sitting] 49 L Pulse Rate [Orthostatic Standing] 50 L Respiratory Rate 18 Blood Pressure 193/108 H 205/91 H Blood Pressure [Orthostatic Lying] 200/93 H Blood Pressure [Orthostatic Sitting] 169/85 H Blood Pressure [Orthostatic Standing] 181/87 H Pulse Oximetry 100 10/30/19 18:32 10/30/19 18:49 10/30/19 18:50 Temperature Pulse Rate 47 L 50 L 49 L Pulse Rate [Orthostatic Lying] Pulse Rate [Orthostatic Sitting] Pulse Rate [Orthostatic Standing] Respiratory Rate 13 24 Blood Pressure 213/98 H 212/96 H Blood Pressure [Orthostatic Lying] Blood Pressure [Orthostatic Sitting] Blood Pressure [Orthostatic Standing] Pulse Oximetry 97 98 10/30/19 19:00 10/30/19 19:15 10/30/19 19:32 Temperature Pulse Rate 50 L 49 L 49 L Pulse Rate [Orthostatic Lying] Pulse Rate [Orthostatic Sitting] Pulse Rate [Orthostatic Standing] Respiratory Rate 20 18 Blood Pressure 168/74 H 154/73 H 152/73 H Blood Pressure [Orthostatic Lying] Blood Pressure [Orthostatic Sitting] Blood Pressure [Orthostatic Standing] Pulse Oximetry 97 97 <Jose Kinney DO - Last Filed: 10/30/19 20:59> Orders Ordered: Discontinued Medications Hydralazine HCl (Apresoline) 10 mg IV NOW ONE Stop: 10/30/19 18:36 Last Admin: 10/30/19 18:49 Dose: 10 mg Documented by: RUBY Sodium Chloride (Normal Saline 0.9%) 1,000 mls @ 150 mls/hr IV CONT AMMON Last Infusion: 10/30/19 19:32 Dose: 150 mls/hr Documented by: Admin: 10/30/19 18:10 Dose: 150 mls/hr Documented by: RUBY Vital Signs Vital signs: Vital Signs - 8 hr 10/30/19 15:47 10/30/19 17:51 10/30/19 18:24 Temperature 97.0 F L Pulse Rate 48 L Pulse Rate [Orthostatic Lying] 49 L Pulse Rate [Orthostatic Sitting] 49 L Pulse Rate [Orthostatic Standing] 50 L Respiratory Rate 18 Blood Pressure 193/108 H 205/91 H Blood Pressure [Orthostatic Lying] 200/93 H Blood Pressure [Orthostatic Sitting] 169/85 H Blood Pressure [Orthostatic Standing] 181/87 H Pulse Oximetry 100 10/30/19 18:32 10/30/19 18:49 10/30/19 18:50 Temperature Pulse Rate 47 L 50 L 49 L Pulse Rate [Orthostatic Lying] Pulse Rate [Orthostatic Sitting] Pulse Rate [Orthostatic Standing] Respiratory Rate 13 24 Blood Pressure 213/98 H 212/96 H Blood Pressure [Orthostatic Lying] Blood Pressure [Orthostatic Sitting] Blood Pressure [Orthostatic Standing] Pulse Oximetry 97 98 10/30/19 19:00 10/30/19 19:15 10/30/19 19:32 Temperature Pulse Rate 50 L 49 L 49 L Pulse Rate [Orthostatic Lying] Pulse Rate [Orthostatic Sitting] Pulse Rate [Orthostatic Standing] Respiratory Rate 20 18 Blood Pressure 168/74 H 154/73 H 152/73 H Blood Pressure [Orthostatic Lying] Blood Pressure [Orthostatic Sitting] Blood Pressure [Orthostatic Standing] Pulse Oximetry 97 97 MDM - Dizziness <Tigre Chilel MD - Last Filed: 11/05/19 04:41> Differential Diagnosis Differential diagnosis: Likely benign paroxysmal positional vertigo, orthostatic hypotension, vertebral basilar insufficiency, cerebrovascular accident, acute vestibular neuronitis, transient cerebral ischemia and other (Hypoglycemia) Lab Data Attestation: I reviewed the patient's lab results. Result diagrams: 10/30/19 16:39 10/30/19 16:39 Labs: Lab Results 10/30/19 10/30/19 10/30/19 Range/Units 16:39 16:39 18:15 WBC 11.1 H (4.5-11.0) X10^3/uL RBC 3.51 L (4.0-5.2) X10^6/uL Hgb 11.7 L (12.0-16.0) g/dL Hct 34.6 L (36-46) % MCV 98.4 (80-100) fL MCH 33.2 (26-34) PG MCHC 33.7 (30-36) % RDW 14.0 (11.6-14.8) % Plt Count 209 (150-400) X10^3/uL Neut % (Auto) 62.5 (50-75) % Lymph % (Auto) 27.7 (25-40) % [place] % (Auto) 8.3 (3-14) % Eos % (Auto) 0.4 L (2-4) % Baso % (Auto) 1.1 (0-2) % Neut # (Auto) 6900 (5466-0918) /uL Lymph # (Auto) 3100 (6202-6539) /uL [place] # (Auto) 900 (0-900) /uL Eos # (Auto) 0 (0-450) /uL Baso # (Auto) 100 (0-100) /uL Sodium 137 (137-145) mmol/L Potassium 4.4 (3.4-5.1) mmol/L Chloride 105 (98-107) mmol/L Carbon Dioxide 25 (22-32) mmol/L BUN 60 H (7-17) mg/dL Creatinine 3.65 H (0.52-1.04) mg/dL Estimated GFR 12.0 L (>60) mL/min BUN/Creatinine Ratio 16.4 (6-22) Glucose 90 (80-110) mg/dL Calcium 8.6 (8.4-10.2) mg/dL Troponin I < 0.012 (0.01-0.034) ng/mL Urine RBC None seen (0-5/HPF) Urine WBC None seen (0-5/HPF) Urine Bacteria None seen (None) Ur Culture Indicated? Cult not indicated Micro UA Comment Microscopic normal Urine Dip Bedside Urine Glucose Negative Bedside Urine Bilirubin - Negative Bedside Urine Ketone - Negative Urine Specific [place] 1.010 Bedside Urine Occult Blood - Negative Bedside Urine pH 6.5 Bedside Urine Protein +++ 300 Bedside Urine Urobilinogen - Negative Bedside Urine Nitrite - Negative Bedside Urine Leukocytes - Negative Esterase Imaging Data CT scan - head: Radiologist's Impression: [address] [address] [address] Scan Report Signed Patient: Clementina Roque R#: [id number] : 2Acct:[id number] Age/Sex: 79 / FDate of Service: 10/30/19 Loc: ED Accession Number: [id number] Procedure: CT head/brain wo con Ordering Provider: Tigre Chilel MD PROCEDURE: CT HEAD/BRAIN WO CON INDICATIONS: Dizziness TECHNIQUE: Noncontrast 4.5 mm thick angled axial sections acquired from the foramen magnum to the vertex, with coronal and sagittal reformats. For radiation dose reduction, the following was used: automated exposure control, adjustment of mA and/or kV according to patient size. COMPARISON: [facility], CT, HEAD WITHOUT CONTRAST, 08/20/2015, 1:24. FINDINGS: Image quality: Excellent. CSF spaces: Basal cisterns are patent. No extra-axial fluid collections. The ventricles are symmetric in size and shape. Brain: No intracranial bleeds or masses. There is cerebral volume loss for age, with resultant ventricular and sulcal prominence. There are periventricular and deep white matter chronic small vessel ischemic changes. There is intracranial internal carotid artery atherosclerosis. Skull and face: Calvarium and visualized facial bones appear intact, without suspicious lesions. Sinuses: Visualized sinuses and mastoids are clear. IMPRESSION: No acute intracranial process. Dictated by: Stan Vann M.D. on 10/30/2019 at 17:14 Approved by: Stan Vann M.D. on 10/30/2019 at 17:16 ECG Data Attestation: I personally reviewed and interpreted this ECG as follows: Interpretation: Sinus bradycardia rate [address] elevation or depression. MDM Narrative Medical decision making narrative: At this time I do not believe this is stroke. NIH score is 0. Likely dizziness is from elevated blood pressure. Patient is not orthostatic when exam was done. Was not dizzy with changes from laying to sitting to standing <Jose Kinney DO - Last Filed: 10/30/19 20:59> Lab Data Labs: Lab Results 10/30/19 10/30/19 10/30/19 Range/Units 16:39 16:39 18:15 WBC 11.1 H (4.5-11.0) X10^3/uL RBC 3.51 L (4.0-5.2) X10^6/uL Hgb 11.7 L (12.0-16.0) g/dL Hct 34.6 L (36-46) % MCV 98.4 (80-100) fL MCH 33.2 (26-34) PG MCHC 33.7 (30-36) % RDW 14.0 (11.6-14.8) % Plt Count 209 (150-400) X10^3/uL Neut % (Auto) 62.5 (50-75) % Lymph % (Auto) 27.7 (25-40) % [place] % (Auto) 8.3 (3-14) % Eos % (Auto) 0.4 L (2-4) % Baso % (Auto) 1.1 (0-2) % Neut # (Auto) 6900 (6287-9154) /uL Lymph # (Auto) 3100 (4118-1742) /uL [place] # (Auto) 900 (0-900) /uL Eos # (Auto) 0 (0-450) /uL Baso # (Auto) 100 (0-100) /uL Sodium 137 (137-145) mmol/L Potassium 4.4 (3.4-5.1) mmol/L Chloride 105 (98-107) mmol/L Carbon Dioxide 25 (22-32) mmol/L BUN 60 H (7-17) mg/dL Creatinine 3.65 H (0.52-1.04) mg/dL Estimated GFR 12.0 L (>60) mL/min BUN/Creatinine Ratio 16.4 (6-22) Glucose 90 (80-110) mg/dL Calcium 8.6 (8.4-10.2) mg/dL Troponin I < 0.012 (0.01-0.034) ng/mL Urine RBC None seen (0-5/HPF) Urine WBC None seen (0-5/HPF) Urine Bacteria None seen (None) Ur Culture Indicated? Cult not indicated Micro UA Comment Microscopic normal Urine Dip Bedside Urine Glucose Negative Bedside Urine Bilirubin - Negative Bedside Urine Ketone - Negative Urine Specific [place] 1.010 Bedside Urine Occult Blood - Negative Bedside Urine pH 6.5 Bedside Urine Protein +++ 300 Bedside Urine Urobilinogen - Negative Bedside Urine Nitrite - Negative Bedside Urine Leukocytes - Negative Esterase MDM Narrative Medical decision making narrative: Dr kinney: Received turned over from Dr Chilel.. Reviewed Patient's history and physical. Patient just received 10 mg of hydralazine. With anticipation of her blood pressure improving being discharged home. Patient like to go home. 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 I did discuss the patient with Dr. Cavazos who was on-call for the patient's primary doctor who stated that she can follow up with the patient tomorrow and just have the patient contact the office. I did discuss this with the patient. We did discuss return precautions and follow-up instructions. She expressed understanding and agreement. Discharge Plan Departure Patient Disposition: Home Clinical Impression: Hypertension Qualifiers: Hypertension type: unspecified Qualified Code(s): I10 - Essential (primary) hypertension Renal failure Qualifiers: Renal failure chronicity: chronic Chronic kidney disease stage: unspecified stage Qualified Code(s): N18.9 - Chronic kidney disease, unspecified Discharge Date/Time: 10/30/19 19:45 Instructions: High Blood Pressure (Hypertension) (Alternative Therapy) Activity Restrictions/Additional Instructions: Have recommend that you take your blood pressure this evening like we discussed. Also recommend that you take it tomorrow morning both before and after your blood pressure medicines also like we discussed. Also recommend that 1st thing in the morning you contact the [facility] physicians group at [phone]. I discussed her case today with Dr. Cavazos who stated that she can see you tomorrow to discuss further blood pressure management. Return to the emergency department for any new or worsening symptoms Prescriptions: No Action furosemide 20 mg tablet 20 mg PO QDAY PRNQty: 30 RF: 0 multivitamin [Daily Multi-Vitamin] tablet 1 tab PO DAILY RF: 0 carvedilol [Coreg] 6.25 mg tablet 25 mg PO BID Qty: 60 RF: 0 allopurinol 100 mg tablet 300 mg PO DAILY RF: 0 biotin 2,500 mcg capsule 5 mg PO DAILY RF: 0 isosorbide mononitrate 30 mg tablet extended release 24 hr PO RF: 0 levothyroxine 25 mcg tablet PO RF: 0 amiodarone 200 mg tablet PO RF: 0 warfarin [Coumadin] 5 mg tablet 5 mg PO DAILY RF: 0 acetaminophen [Acetaminophen Extra Strength] 500 mg tablet 1,000 mg PO BID PRNRF: 0 dorzolamide-timolol 22.3-6.8 mg/mL drops 1 drop EYE-BOTH BID RF: 0 brimonidine [Alphagan P] 0.1 % drops 1 drop EYE-RIGHT BID RF: 0 mirtazapine [Remeron SolTab] 15 mg tablet,disintegrating 15 mg PO DAILY RF: 0 Referrals: Jorge L Dietz MD [Primary Care Provider] -
[2019-10-30 17:04] LABS: BUN Creatinine Ratio 16.4 (6-22); Blood Urea Nitrogen 60 mg/dL (7-17); Calcium 8.6 mg/dL (8.4-10.2); Carbon Dioxide 25 mmol/L (22-32); Chloride 105 mmol/L (98-107); Glucose 90 mg/dL (80-110); HEMOLYSIS < 15 (0-50); Potassium 4.4 mmol/L (3.4-5.1); Sodium 137 mmol/L (137-145)
[2019-10-30 17:16] LABS: Troponin I < 0.012 ng/mL (0.01-0.034)
[2019-10-30] MEDS: SODIUM CHLORIDE 0.9% 1,000 ML 150 ML IV (18:10)
[2019-10-30 18:17] LABS: Bacteria Urine None Seen; RBC Urine None Seen (0-5/HPF); WBC Urine None Seen (0-5/HPF)
[2019-10-30 18:22] LABS: Culture Indicated Urine Cult Not Indicated; Urine Comments Microscopic Normal
[2019-10-30] MEDS: HYDRALAZINE 20 MG/ML VIAL 10 MG IV (18:49)
== END 2019-10-30 19:45 | disposition home or self-care (01) ==
PROVIDERS: Emergency Medicine; Emergency Provider Emergency Medicine; Family Provider Family Medicine; PCP Family Medicine
DX: I12.9 Hypertensive chronic kidney disease with stage 1 through stage 4 chronic kidney disease, or unspecified chronic kidney disease (principal); N18.9 Chronic kidney disease, unspecified; R00.1 Bradycardia, unspecified; N18.5 Chronic kidney disease, stage 5; D63.1 Anemia in chronic kidney disease
CPT/HCPCS: 36415; 70450; 80048; 81003; 81015; 84484; 85025; 85027; 93005; 93010; 96361; 96374; 99284; J0360

== ENCOUNTER → 2019-10-30 | Outpatient (CLI) | payer MEDICARE, OTHER, SELFPAY ==
[2019-10-30 12:17] LABS: Hematocrit 35.9 % (36-46); Hemoglobin 11.5 g/dL (12.0-16.0); Mean Corpuscular HGB Conc 32.2 % (30-36); Mean Corpuscular Hemoglobin 31.9 PG (26-34); Mean Corpuscular Volume 99.1 fL (80-100); Platelet Count 221 X10^3/uL (150-400); Red Blood Cell Count 3.62 X10^6/uL (4.0-5.2); Red Cell Distribution Width 14.4 % (11.6-14.8); White Blood Cell Count 11.2 X10^3/uL (4.5-11.0)
[2019-10-30 12:36] LABS: BUN Creatinine Ratio 15.9 (6-22); Blood Urea Nitrogen 59 mg/dL (7-17); Calcium 9.1 mg/dL (8.4-10.2); Carbon Dioxide 25 mmol/L (22-32); Chloride 106 mmol/L (98-107); Estimated Glomerular Filt Rate 11.8 mL/min (>60); Glucose 85 mg/dL (80-110); HEMOLYSIS < 15 (0-50); Potassium 4.9 mmol/L (3.4-5.1); Sodium 139 mmol/L (137-145)
[2019-10-30 14:15] VITALS: BP 193/80; PULSE 53; RESP 18; TEMP 36.3; O2SAT 97
[2019-10-30 14:20] VITALS: BP 151/73
[2019-10-30 14:25] VITALS: BP 171/81
[2019-10-30 15:20] VITALS: BP 158/72; PULSE 51; O2SAT 96
[2019-10-30 15:25] VITALS: BP 160/68; PULSE 49; O2SAT 96
[2019-10-30 15:28] VITALS: BP 138/67; O2SAT 96
--- NOTE | 2019-10-30 15:48 | PC.NURSE ---
ORTHOSTATIC HYPERTENSION Pt came to clinic today with symptoms of dizziness/lightheadedness. Pt has CKD and is on fluid restriction, as well as carvedilol and amiodarone. Orthostatic BPs taken, see flowsheet. Dr. Dumont's office called, left message with on-call physician (Dr. West) about BP's and symptoms. After having 1/2 a sandwich, Pt stated that the lightheadedness was better. Dr. West's MA called back and said that Pt should be seen today in ED. Pt stated that she was feeling much better and was reluctant to be seen in ED. After discussing more, Pt decided she would like to be seen in ED. This RN took Pt to ED check-in. 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
== END ==
LOC: ONC 10:49
PROVIDERS: Family Provider Family Medicine; PCP Family Medicine; Referring Provider Student in an Organized Health Care Education/Training Program; Visit Provider Student in an Organized Health Care Education/Training Program
DX: N18.5 Chronic kidney disease, stage 5 (principal); D63.1 Anemia in chronic kidney disease
CPT/HCPCS: 36415; 80048; 85027

== ENCOUNTER → 2019-11-14 11:11 | Outpatient (CLI) | payer MEDICARE, OTHER, SELFPAY ==
[2019-11-14 13:01] LABS: Hemoglobin 10.5 g/dL (12.0-16.0)
[2019-11-14 13:37] LABS: BUN Creatinine Ratio 14.8 (6-22); Blood Urea Nitrogen 50 mg/dL (7-17); Calcium 8.7 mg/dL (8.4-10.2); Carbon Dioxide 21 mmol/L (22-32); Chloride 112 mmol/L (98-107); Estimated Glomerular Filt Rate 13.2 mL/min (>60); Glucose 96 mg/dL (80-110); HEMOLYSIS < 15 (0-50); Potassium 4.8 mmol/L (3.4-5.1); Sodium 140 mmol/L (137-145)
== END ==
PROVIDERS: Family Provider Family Medicine; PCP Family Medicine; Referring Provider Family Medicine; Visit Provider Student in an Organized Health Care Education/Training Program
DX: N18.5 Chronic kidney disease, stage 5 (principal); D63.1 Anemia in chronic kidney disease
CPT/HCPCS: 36415; 80048; 85018

== ENCOUNTER → 2019-11-14 13:06 | Outpatient (CLI) | payer MEDICARE, OTHER, SELFPAY ==
[2019-11-14 13:54] VITALS: BP 170/72; PULSE 54; RESP 18
== END ==
PROVIDERS: Family Provider Family Medicine; PCP Family Medicine; Referring Provider Student in an Organized Health Care Education/Training Program; Visit Provider Student in an Organized Health Care Education/Training Program
DX: N18.5 Chronic kidney disease, stage 5 (principal); D63.1 Anemia in chronic kidney disease

== ENCOUNTER → 2019-12-03 12:18 | Outpatient (ROUT) | payer MEDICARE, OTHER, SELFPAY ==
[2019-12-03 12:30] LABS: INR 2.2 (0.9-1.3); Prothrombin Time 25.8 SECONDS (10.1-12.7)
== END ==
PROVIDERS: Family Provider Family Medicine; PCP Family Medicine; Visit Provider Family Medicine
DX: Z79.01 Long term (current) use of anticoagulants (principal)
CPT/HCPCS: 85610

== ENCOUNTER → 2019-12-10 10:13 | Outpatient (ROUT) | payer MEDICARE, OTHER, SELFPAY ==
[2019-12-10 10:28] LABS: Prothrombin Time 22.9 SECONDS (10.1-12.7)
== END ==
PROVIDERS: Family Provider Family Medicine; PCP Family Medicine; Visit Provider Family Medicine
DX: Z79.01 Long term (current) use of anticoagulants (principal)
CPT/HCPCS: 85610

== ENCOUNTER → 2019-12-18 09:31 | Outpatient (CLI) | payer MEDICARE, OTHER, SELFPAY ==
[2019-12-18 10:24] LABS: Hemoglobin 10.4 g/dL (12.0-16.0)
[2019-12-18 10:44] LABS: BUN Creatinine Ratio 11.7 (6-22); Blood Urea Nitrogen 42 mg/dL (7-17); Carbon Dioxide 22 mmol/L (22-32); Chloride 112 mmol/L (98-107); Estimated Glomerular Filt Rate 12.3 mL/min (>60); Glucose 96 mg/dL (80-110); HEMOLYSIS < 15 (0-50); Potassium 4.7 mmol/L (3.4-5.1); Sodium 141 mmol/L (137-145)
== END ==
PROVIDERS: Family Provider Family Medicine; PCP Family Medicine; Referring Provider Student in an Organized Health Care Education/Training Program; Visit Provider Student in an Organized Health Care Education/Training Program
DX: N18.5 Chronic kidney disease, stage 5 (principal); D63.1 Anemia in chronic kidney disease
CPT/HCPCS: 36415; 80048; 85018

== ENCOUNTER → 2019-12-18 13:28 | Outpatient (CLI) | payer MEDICARE, OTHER, SELFPAY ==
--- NOTE | 2019-12-11 09:00 | PC.NURSE ---
Pt called to reschedule appt to next week I got a flu shot yesterday and now I feel terrible. I'm coughing and feel achy. Pt rescheduled for next Wed, same time.
--- NOTE | 2019-12-18 13:55 | PC.NURSE ---
Per orders, no injection needed based on lab results.
== END ==
PROVIDERS: Family Provider Family Medicine; PCP Family Medicine; Referring Provider Family Medicine; Visit Provider Student in an Organized Health Care Education/Training Program
DX: D47.2 Monoclonal gammopathy (principal); I12.0 Hypertensive chronic kidney disease with stage 5 chronic kidney disease or end stage renal disease; N18.5 Chronic kidney disease, stage 5; D63.1 Anemia in chronic kidney disease

== ENCOUNTER → 2019-12-25 12:35 | Outpatient (CLI) | payer MEDICARE, OTHER, SELFPAY ==
--- NOTE | 2019-12-25 12:49 | PC.NURSE ---
HGB 10.1, PATIENT FEELING INCREASINGLY FATIGUED IN LAST COUPLE WEEKS AND THAT HER HEART IS SHIVERING. VERBAL ORDER OBTAINED FROM DR GODINEZ PER RN, FABIEN MERLOS TO GIVE ARANESP TODAY ALTHOUGH PATIENT 0.1 OVER THE LAST ORDERED PARAMETER. THIS WAS DECIDED DUE TO HER SYMPTOMS AND TREND OF HGB FALLING IN THE LAST COUPLE WEEKS. ALSO BECAUSE PATIENT UNABLE TO COME IN NEXT WEEK BEFORE A FISTULA PLACEMENT ON MONDAY.
[2019-12-25] MEDS: DARBEPOETIN 40 MCG/0.4 ML SYRINGE SUBCUT (13:34)
== END ==
PROVIDERS: Family Provider Family Medicine; PCP Family Medicine; Referring Provider Family Medicine; Visit Provider Student in an Organized Health Care Education/Training Program
DX: I12.0 Hypertensive chronic kidney disease with stage 5 chronic kidney disease or end stage renal disease (principal); N18.5 Chronic kidney disease, stage 5; D63.1 Anemia in chronic kidney disease; D47.2 Monoclonal gammopathy
CPT/HCPCS: 96372; J0881

== ENCOUNTER → 2019-12-27 14:06 | Outpatient (CLI) | payer MEDICARE, OTHER, SELFPAY | PROVIDERS: Family Provider Family Medicine; PCP Family Medicine; Visit Provider Physician Assistant | DX: L02.91 Cutaneous abscess, unspecified (principal) | CPT/HCPCS: 87070; 87205 ==

== ENCOUNTER → 2019-12-30 15:17 | Outpatient (CLI) | payer MEDICARE, OTHER, SELFPAY ==
--- NOTE | 2019-12-30 | DI.RAD.S_ITS ---
PROCEDURE: XR FOOT RT MIN 3V INDICATIONS: right foot pain TECHNIQUE: 3 views of the foot were acquired. COMPARISON: [facility], CR, XR FOOT LT MIN 3V, 03/28/2018, 12:18. FINDINGS: Bones: No fractures or dislocations. No suspicious bony lesions. Relatively prominent plantar fascia insertion spur. Soft tissues: No tibiotalar joint effusion. Achilles tendon appears normal. IMPRESSION: A plantar fascia insertion spur is moderate in severity, which may be associated with plantar fasciitis. No trauma found. Dictated by: Joe Seymour M.D. on 12/30/2019 at 17:07 Approved by: Joe Seymour M.D. on 12/30/2019 at 17:08
== END ==
PROVIDERS: Family Provider Family Medicine; PCP Family Medicine; Referring Provider Physician Assistant; Visit Provider Physician Assistant
DX: S99.921A Unspecified injury of right foot, initial encounter (principal); M79.671 Pain in right foot; X58.XXXA Exposure to other specified factors, initial encounter
CPT/HCPCS: 73630

== ENCOUNTER → 2020-01-08 08:18 | Outpatient (CLI) | payer MEDICARE, OTHER, SELFPAY ==
[2020-01-08 09:12] LABS: Hematocrit 33.9 % (36-46); Hemoglobin 11.1 g/dL (12.0-16.0)
[2020-01-08 09:31] LABS: BUN Creatinine Ratio 13.7 (6-22); Blood Urea Nitrogen 47 mg/dL (7-17); Calcium 9.5 mg/dL (8.4-10.2); Carbon Dioxide 21 mmol/L (22-32); Chloride 110 mmol/L (98-107); Estimated Glomerular Filt Rate 12.9 mL/min (>60); Glucose 98 mg/dL (80-110); HEMOLYSIS < 15 (0-50); Potassium 4.5 mmol/L (3.4-5.1); Sodium 140 mmol/L (137-145)
[2020-01-09 08:12] LABS: Parathyroid Hormone Int 113 pg/mL (15-65)
== END ==
PROVIDERS: Family Provider Family Medicine; PCP Family Medicine; Referring Provider Student in an Organized Health Care Education/Training Program; Visit Provider Student in an Organized Health Care Education/Training Program
DX: N05.9 Unspecified nephritic syndrome with unspecified morphologic changes (principal); D64.9 Anemia, unspecified; E83.30 Disorder of phosphorus metabolism, unspecified; N25.81 Secondary hyperparathyroidism of renal origin; N18.5 Chronic kidney disease, stage 5; D63.1 Anemia in chronic kidney disease
CPT/HCPCS: 36415; 80048; 83970; 84100; 85014; 85018

== ENCOUNTER → 2020-01-08 09:53 | Outpatient (CLI) | payer MEDICARE, OTHER, SELFPAY ==
--- NOTE | 2020-01-08 10:01 | PC.NURSE ---
Hgb 11.1 Patient will not need Aranesp injection today.
== END ==
PROVIDERS: Family Provider Family Medicine; PCP Family Medicine; Referring Provider Family Medicine; Visit Provider Student in an Organized Health Care Education/Training Program
DX: D47.2 Monoclonal gammopathy (principal); Z53.9 Procedure and treatment not carried out, unspecified reason

== ENCOUNTER → 2020-02-05 10:51 | Outpatient (ROUT) | payer MEDICARE, OTHER, SELFPAY ==
[2020-02-05 11:07] LABS: INR 1.3 (0.9-1.3); Prothrombin Time 14.8 SECONDS (10.1-12.7)
== END ==
PROVIDERS: Family Provider Family Medicine; PCP Family Medicine; Visit Provider Family Medicine
DX: Z79.01 Long term (current) use of anticoagulants (principal)
CPT/HCPCS: 85610

== ENCOUNTER → 2020-02-17 15:44 | Outpatient (CLI) | payer MEDICARE, OTHER, SELFPAY ==
[2020-02-17 17:01] LABS: Hematocrit 30.7 % (36-46); Hemoglobin 10.1 g/dL (12.0-16.0)
[2020-02-17 17:22] LABS: BUN Creatinine Ratio 13.2 (6-22); Blood Urea Nitrogen 48 mg/dL (7-17); Calcium 8.8 mg/dL (8.4-10.2); Carbon Dioxide 22 mmol/L (22-32); Chloride 110 mmol/L (98-107); Estimated Glomerular Filt Rate 12.1 mL/min (>60); Glucose 95 mg/dL (80-110); HEMOLYSIS < 15 (0-50); Potassium 4.7 mmol/L (3.4-5.1); Sodium 138 mmol/L (137-145)
== END ==
PROVIDERS: Family Provider Family Medicine; PCP Family Medicine; Referring Provider Student in an Organized Health Care Education/Training Program; Visit Provider Student in an Organized Health Care Education/Training Program
DX: N05.9 Unspecified nephritic syndrome with unspecified morphologic changes (principal); D64.9 Anemia, unspecified
CPT/HCPCS: 36415; 80048; 85014; 85018

== ENCOUNTER → 2020-02-27 09:34 | Outpatient (CLI) | payer MEDICARE, OTHER, SELFPAY ==
[2020-02-27 12:05] LABS: Ferritin 146 ng/mL (11-264)
[2020-02-27 12:08] LABS: HEMOLYSIS < 15 (0-50); Iron 62 ug/dL (37-170)
[2020-02-27 12:19] LABS: Percent Iron Saturation 20 % (15-50); Total Iron Binding Capacity 310 ug/dL (265-497); Transferrin 233 mg/dL (206-381)
== END ==
PROVIDERS: Family Provider Family Medicine; PCP Family Medicine; Referring Provider Student in an Organized Health Care Education/Training Program; Visit Provider Student in an Organized Health Care Education/Training Program
DX: D50.0 Iron deficiency anemia secondary to blood loss (chronic) (principal)
CPT/HCPCS: 36415; 82728; 83540; 83550

== ENCOUNTER → 2020-03-10 14:10 | Outpatient (CLI) | payer MEDICARE, OTHER, SELFPAY ==
[2020-03-10 14:52] LABS: Hemoglobin 11.1 g/dL (12.0-16.0)
== END ==
PROVIDERS: Family Provider Family Medicine; PCP Family Medicine; Referring Provider Student in an Organized Health Care Education/Training Program; Visit Provider Student in an Organized Health Care Education/Training Program
DX: D64.9 Anemia, unspecified (principal)
CPT/HCPCS: 36415; 85018

== ENCOUNTER → 2020-03-19 08:45 | Outpatient (CLI) | payer MEDICARE, OTHER, SELFPAY ==
--- NOTE | 2020-03-19 | DI.RAD.S_ITS ---
PROCEDURE: XR CHEST 2V INDICATIONS: ESRD/Screen for TB TECHNIQUE: 2 views of the chest were acquired. COMPARISON: [facility], , CHEST 1 VIEW, 09/28/2015, 15:06. FINDINGS: Surgical changes and devices: Right upper quadrant surgical clips. Lungs and pleura: Scattered subsegmental scarring and/or atelectasis. No acute consolidation. No pleural effusions or pneumothorax. Mediastinum: Mediastinal contours are normal. Heart size is normal. Bones and chest wall: No suspicious bony abnormalities. Soft tissues appear unremarkable. IMPRESSION: No acute disease. Dictated by: Stan Vann M.D. on 03/19/2020 at 15:57 Approved by: Stan Vann M.D. on 03/19/2020 at 15:57
[2020-03-19 10:03] LABS: BUN Creatinine Ratio 14.5 (6-22); Blood Urea Nitrogen 59 mg/dL (7-17); Calcium 9.1 mg/dL (8.4-10.2); Carbon Dioxide 24 mmol/L (22-32); Chloride 108 mmol/L (98-107); Estimated Glomerular Filt Rate 10.6 mL/min (>60); Glucose 106 mg/dL (80-110); HEMOLYSIS < 15 (0-50); Potassium 4.2 mmol/L (3.4-5.1); Sodium 141 mmol/L (137-145)
[2020-03-19 13:14] LABS: Hematocrit 34.1 % (36-46)
[2020-03-20 03:36] LABS: Hepatitis B Core Antibody Negative (Negative)
[2020-03-20 08:45] LABS: Hepatitis B Surf Ab Qualitativ Non Reactive (.)
[2020-03-20 15:30] LABS: Hepatitis B Surface Antigen NEGATIVE s/c (NEGATIVE)
[2020-03-20 16:04] LABS: Hep C Virus Ab w/Reflex Quant NEGATIVE s/c (NEGATIVE)
== END ==
PROVIDERS: Family Provider Family Medicine; PCP Family Medicine; Referring Provider Student in an Organized Health Care Education/Training Program; Visit Provider Student in an Organized Health Care Education/Training Program
DX: D64.9 Anemia, unspecified (principal); N18.6 End stage renal disease; N05.9 Unspecified nephritic syndrome with unspecified morphologic changes; B19.10 Unspecified viral hepatitis B without hepatic coma; B17.10 Acute hepatitis C without hepatic coma; Z11.1 Encounter for screening for respiratory tuberculosis
CPT/HCPCS: 36415; 71046; 80048; 85014; 85018; 86704; 86706; 86803; 87340

== ENCOUNTER → 2020-03-19 15:36 | Outpatient (CLI) | payer MEDICARE, OTHER, SELFPAY | PROVIDERS: Family Provider Family Medicine; PCP Family Medicine; Referring Provider Student in an Organized Health Care Education/Training Program; Visit Provider Student in an Organized Health Care Education/Training Program | DX: Z11.1 Encounter for screening for respiratory tuberculosis (principal); N18.6 End stage renal disease ==

== ENCOUNTER 2020-07-07 11:15 | Outpatient (RCR) | payer MEDICARE, OTHER, SELFPAY ==
--- NOTE | 2018-11-28 10:30 | PT.OIE ---
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) Muscle weakness (generalized) (11/28/18) Past Medical History (Last Reviewed 11/01/18 @ 11:14 by MIRACLE Arriaza) Atrial fibrillation (Acute) Gastroesophageal reflux disease (Acute) Gout (Acute) Hypertension (Acute) Visit Care Team Role Provider Type Jorge L Dietz MD Primary Care Provider Physician Specialty: Family Practice Address: [address] [place] [address], [id number] Email: [email or web address] MIRACLE Arriaza Attending Provider Advanced Animal Anatomist Specialty: Pain Management Address: [address] [place] [address], [id number] Email: [email or web address] Physical Therapy Initial Evaluation PT-OP-A Visit Information Start: 11/28/18 17:41 Freq: Status: Active Protocol: Document 11/28/18 09:45 DCW (Rec: 11/28/18 17:58 DCW [id number]) Out-Patient Physical Therapy Visit Information Visit Information Visit Type Initial Evaluation Visit Start Time 09:45 Visit Stop Time 10:30 Total Visit Minutes 45 Visit Number 1 Number of AIRBRUSH PAINTER Visits 0 Evaluation Information Evaluation Date 11/28/18 PT-OP-B Current Condition Start: 11/28/18 17:41 Freq: Status: Active Protocol: Document 11/28/18 09:45 DCW (Rec: 11/28/18 17:58 DCW [id number]) Current Condition History of Current Condition Onset Date Two years Current Complaints Worsening back pain History of Current Condition Pt is a 78 year old female presenting with progressive low back pain. Pt notes she has had lumbar issues off and on for 20 years, but that six years ago, she was caring for her life partner, who was going through an illness at the time, and strained her back. It has been bad since then, and specifically worsening over the last two years. Additionally, pt notes that she pulled something on Monday in her left posterior hip, which has been causing even more pain and difficulty in her getting around. Pt notes that if she is sitting or lying down, she doesn't feel too bad, but if she stays in a position too samir, she has a large increase in pain when she tries to get up and move around. Pt feels like she has substantially decreased in her level of activity tolerance and overall fitness level. Pt reports that she tries to walk one block every day, and frequently is unable to do so. Pt also has in the past swam 3x/week, and now has not been to the pool in two years. 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 The most prominent level of degenerative change is L3-L4, where there is a left lateral recess disc extrusion, with associated moderate to severe central canal narrowing. Moderate to severe bilateral neural foraminal narrowing is also seen at this level. Impression taken from Objective history of pt note from MIRACLE Arriaza on Prior Functional Status Baseline Function- ADL's Independent Baseline Function- Mobility Independent Baseline Function- Gait Walk multiple miles downtown Baseline Function- Recreation/Hobbies Swimming at community pool Current Functional Impairments (Reported) Functional Limitations- Mobility/Gait Pt unable to walk more than one block Functional Limitations- Recreation/ Pt has not gone to pool in [place] past two years. PT-OP-C Subjective Start: 11/28/18 17:41 Freq: Status: Active Protocol: Document 11/28/18 09:45 DCW (Rec: 11/28/18 17:58 DCW [id number]) OP-PT Subjective Patient Comments Patient Comments Monday, I just laid on the couch all day because of the pain Patient Reported Progress Worse OP-PT Pain Assessment Pain Assessment Grid Paper Pain Assessment Grid Completed Yes Location Lumbar Intensity 6 Scale Used Numeric (1 - 10) Radiating Location Bilateral lumbar/posterior hip pain, radiating down posterior thigh to knee PT-OP-F Manual Assessment Start: 11/28/18 17:41 Freq: Status: Active Protocol: Document 11/28/18 09:45 DCW (Rec: 11/29/18 12:49 DCW [id number]) Manual Assessments Soft Tissue Assessment Soft Tissue Mobility Assessment Severe tone and tenderness to palpation 3/4:Wincing and withdraw: left piriformis, left ITB Moderate tone and tenderness to palpation 2/4: Pain with wincing: right piriformis, right QL, right ITB PT-OP-K Range of Motion Start: 11/28/18 17:41 Freq: Status: Active Protocol: Document 11/28/18 09:45 DCW (Rec: 11/29/18 12:49 DCW [id number]) Lumbar Spine Range of Motion Lumbar Spine Active Degrees Testing Position Standing Flexion 55 Extension 12 Lateral Flexion Left 57 Lateral Flexion Right 55 ROM Limitations Pain Comments Extension limited secondary to pain PT-OP-L Special Tests Start: 11/28/18 17:41 Freq: Status: Active Protocol: Document 11/28/18 09:45 DCW (Rec: 11/29/18 12:49 DCW [id number]) Special Tests Lumbar Spine Special Tests Standing Flexion Test Results WNL Straight Leg Raise Test Results Negative Slump Test Results Positive R Manual Traction Test Results Relief of pain Compression Test Results Oh, that feels so good Hip Special Tests Lateral SI Compression Test Results Negative Anterior SI Sheer Test Results Negative Piriformis Test Results Positive B PARAS Test Results Positive left ipsilateral lateral hip pain PT-OP-M Strength Start: 11/28/18 17:41 Freq: Status: Active Protocol: Document 11/28/18 09:45 DCW (Rec: 11/29/18 12:49 DCW [id number]) Trunk Strength Trunk Manual Muscle Testing Core Stabilization Pt has difficulty properly erica TrA with verbal and tactile cues, MMT: 3-/5 Hip Strength Hip Manual Muscle Testing Right Flexion (L2) 4 Good Abduction 4 Good Adduction 4 Good External Rotation 4+ Good+ Internal Rotation 4+ Good+ Left Flexion (L2) 4- Good- Abduction 3+ Fair+ Adduction 4- Good- External Rotation 4+ Good+ Internal Rotation 4+ Good+ Knee Strength Knee Manual Muscle Testing Right Flexion (S2) 4 Good Extension (L3) 4+ Good+ Left Flexion (S2) 4+ Good+ Extension (L3) 4+ Good+ Ankle/Foot Strength Ankle and Foot Manual Muscle Testing Right Dorsiflexion (L4) 4 Good Plantarflexion (S1) 4 Good Left Dorsiflexion (L4) 4 Good Plantarflexion (S1) 4 Good PT-OP-Q Treatments Start: 11/28/18 17:41 Freq: Status: Active Protocol: Document 11/28/18 09:45 DCW (Rec: 11/29/18 12:49 DCW [id number]) Therapeutic Exercises Supine Exercises Piriformis stretch Supine Exercise Name Figure-4, [id number] shoulder Side bilateral Sitting Exercises Piriformis Stretch Sitting Exercise Name Seated Figure-4 Side bilateral PT-OP-T Assessment and Plan Start: 11/28/18 17:41 Freq: Status: Active Protocol: Document 11/28/18 09:45 DCW (Rec: 11/29/18 12:49 DCW [id number]) Physical Therapy Assessment Rehab Potential Rehabilitation Potential Good Evaluation Complexity Number of Personal Factors/Comorbidities 1-2 Number of Body Systems Impaired 4 or More Clinical Presentation at Evaluation Evolving Impairments Impairments Activity Tolerance,Functional Activities,Functional Mobility ,Pain,ROM,Soft Tissue Mobility ,Strength Goals Four Impairment Core and hip weakness Short Term Goal (STG) Pt to demonstrate increased hip abduction bilaterally to 4 +/5 STG Duration 01/02/19 Retirement Goal (LTG) Pt to exhibit core/TrA MMT 4-/ 5 LTG Duration 02/20/19 Three Impairment Pt has not been able to swim for two years Retirement Goal (LTG) Pt to return to community pool independently for exercise with no increased back pain LTG Duration 02/20/19 Two Impairment Pt only able to walk <one square block due to pain Short Term Goal (STG) Pt to ambulate 1/2 mile with no increased pain STG Duration 01/02/19 Manager Analytical Goal (LTG) Pt to ambulate one mile with no increased pain LTG Duration 02/20/19 One Impairment Pt does not have an appropriate home exercise program Short Term Goal (STG) Pt to be independent and compliant with an appropriate HEP STG Duration 12/28/18 Assessment Summary Assessment Pt presents with signs and symptoms of lumbar disc degeneration/bulging and resultant protective spasming of her lumbar and posterior hip musculature. Pt should benefit from skilled therapy focusing on decreasing her piriformis, ITB/TFL, and QL tone, improving core and hip strength, increasing lumbar ROM, and improving activity tolerance to increase her ability to walk downtown pain- free. Pt has been very sedentary the last two years since her back began to worsen , and will likely have difficulty at the start tolerating much TherEx without multiple rest breaks. Pt has a history of using swimming to exercise, however has recently been on blood- thinners, which have caused bruising and small wounds along her arms, which she obviously does not want to get in a pool with. As she heals, she may benefit from the addition of aquatic therapy to her plan of care. Physical Therapy Plan Frequency and Duration Frequency of Treatment 2x/Week Duration of Treatment 12 weeks Plan of Care Start Date 11/28/18 Plan of Care End Date 02/20/19 Therapeutic Interventions Therapeutic Interventions Aquatic Therapy,Home Exercise Program,Joint Mobilizations, Manual Therapy,Self-Care/Home Management,Soft Tissue Mobilization,Therapeutic Activities,Therapeutic Exercises Modalities Cold Pack/Ice Massage,Electric Stimulation,Hot Packs, Ultrasound Next Visit Focus/Plan Next Note Type Treatment Note Next Visit Plan STM, Stretching, Core strengthening
--- NOTE | 2018-12-04 15:16 | PT.OTN ---
Current Diagnoses Polyneuropathy, unspecified (12/04/18) Pain in right hip (12/04/18) Pain in left hip (12/04/18) Stiffness of right hip, not elsewhere classified (12/04/18) Stiffness of left hip, not elsewhere classified (12/04/18) Spondylolisthesis, lumbar region (12/04/18) Spondylosis without myelopathy or radiculopathy, lumbosacral region (12/04/18) Other intervertebral disc displacement, lumbar region (12/04/18) Muscle weakness (generalized) (12/04/18) Physical Therapy Treatment Note PT-OP-A Visit Information Start: 11/28/18 17:41 Freq: Status: Active Protocol: Document 12/04/18 15:03 GGD (Rec: 12/04/18 15:16 GGD [email or web address]) Out-Patient Physical Therapy Visit Information Visit Information Visit Type Treatment Note Visit Start Time 13:45 Visit Stop Time 14:25 Total Visit Minutes 40 Visit Number 2 Number of TRADING ASSISTANT Visits 1 Evaluation Information Evaluation Date 11/28/18 PT-OP-B Current Condition Start: 11/28/18 17:41 Freq: Status: Active Protocol: Document 11/28/18 09:45 DCW (Rec: 11/28/18 17:58 DCW [id number]) Current Condition History of Current Condition Onset Date Two years Current Complaints Worsening back pain History of Current Condition Pt is a 78 year old female presenting with progressive low back pain. Pt notes she has had lumbar issues off and on for 20 years, but that six years ago, she was caring for her life partner, who was going through an illness at the time, and strained her back. It has been bad since then, and specifically worsening over the last two years. Additionally, pt notes that she pulled something on Monday in her left posterior hip, which has been causing even more pain and difficulty in her getting around. Pt notes that if she is sitting or lying down, she doesn't feel too bad, but if she stays in a position too samir, she has a large increase in pain when she tries to get up and move around. Pt feels like she has substantially decreased in her level of activity tolerance and overall fitness level. Pt reports that she tries to walk one block every day, and frequently is unable to do so. Pt also has in the past swam 3x/week, and now has not been to the pool in two years. 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 The most prominent level of degenerative change is L3-L4, where there is a left lateral recess disc extrusion, with associated moderate to severe central canal narrowing. Moderate to severe bilateral neural foraminal narrowing is also seen at this level. Impression taken from Objective history of pt note from MIRACLE Arriaza on Prior Functional Status Baseline Function- ADL's Independent Baseline Function- Mobility Independent Baseline Function- Gait Walk multiple miles downtown Baseline Function- Recreation/Hobbies Swimming at [facility] pool Current Functional Impairments (Reported) Functional Limitations- Mobility/Gait Pt unable to walk more than one block Functional Limitations- Recreation/ Pt has not gone to pool in [place] past two years. PT-OP-C Subjective Start: 11/28/18 17:41 Freq: Status: Active Protocol: Document 12/04/18 15:03 GGD (Rec: 12/04/18 15:16 GGD [email or web address]) OP-PT Subjective Patient Comments Patient Comments Pt states she is sore today and had trouble with sit to stand. PT-OP-F Manual Assessment Start: 11/28/18 17:41 Freq: Status: Active Protocol: Document 11/28/18 09:45 DCW (Rec: 11/29/18 12:49 DCW [id number]) Manual Assessments Soft Tissue Assessment Soft Tissue Mobility Assessment Severe tone and tenderness to palpation 3/4:Wincing and withdraw: left piriformis, left ITB Moderate tone and tenderness to palpation 2/4: Pain with wincing: right piriformis, right QL, right ITB PT-OP-K Range of Motion Start: 11/28/18 17:41 Freq: Status: Active Protocol: Document 11/28/18 09:45 DCW (Rec: 11/29/18 12:49 DCW [id number]) Lumbar Spine Range of Motion Lumbar Spine Active Degrees Testing Position Standing Flexion 55 Extension 12 Lateral Flexion Left 57 Lateral Flexion Right 55 ROM Limitations Pain Comments Extension limited secondary to pain PT-OP-L Special Tests Start: 11/28/18 17:41 Freq: Status: Active Protocol: Document 11/28/18 09:45 DCW (Rec: 11/29/18 12:49 DCW [id number]) Special Tests Lumbar Spine Special Tests Standing Flexion Test Results WNL Straight Leg Raise Test Results Negative Slump Test Results Positive R Manual Traction Test Results Relief of pain Compression Test Results Oh, that feels so good Hip Special Tests Lateral SI Compression Test Results Negative Anterior SI Sheer Test Results Negative Piriformis Test Results Positive B PARAS Test Results Positive left ipsilateral lateral hip pain PT-OP-M Strength Start: 11/28/18 17:41 Freq: Status: Active Protocol: Document 11/28/18 09:45 DCW (Rec: 11/29/18 12:49 DCW [id number]) Trunk Strength Trunk Manual Muscle Testing Core Stabilization Pt has difficulty properly erica TrA with verbal and tactile cues, MMT: 3-/5 Hip Strength Hip Manual Muscle Testing Right Flexion (L2) 4 Good Abduction 4 Good Adduction 4 Good External Rotation 4+ Good+ Internal Rotation 4+ Good+ Left Flexion (L2) 4- Good- Abduction 3+ Fair+ Adduction 4- Good- External Rotation 4+ Good+ Internal Rotation 4+ Good+ Knee Strength Knee Manual Muscle Testing Right Flexion (S2) 4 Good Extension (L3) 4+ Good+ Left Flexion (S2) 4+ Good+ Extension (L3) 4+ Good+ Ankle/Foot Strength Ankle and Foot Manual Muscle Testing Right Dorsiflexion (L4) 4 Good Plantarflexion (S1) 4 Good Left Dorsiflexion (L4) 4 Good Plantarflexion (S1) 4 Good PT-OP-Q Treatments Start: 11/28/18 17:41 Freq: Status: Active Protocol: Document 12/04/18 15:03 GGD (Rec: 12/04/18 15:16 GGD [email or web address]) Cardio Equipment Recumbent Stepper (Sci-Fit) Duration (Minutes) 5 Resistance 1 Therapeutic Exercises Supine Exercises marches with TA Reps/Minutes 10 Comments cues for core bent knee fallout Supine Exercise Name BKFO Side bilateral Reps/Minutes 10 Comments cuse for core lower trunk rotation Supine Exercise Name LTR Side bilateral Reps/Minutes 10 bridges Side bilateral Reps/Minutes 10 Comments cues Piriformis stretch Supine Exercise Name Figure-4, Jwue-ye-hkqvbkuj shoulder Side bilateral Other Exercises sit to stand Other Exercise Name sit to stand Reps/Minutes 10 Manual Therapy Treatment Soft Tissue Mobilization L/S and glutes Body Location L/S and glutes Mobilization Type Myofascial Release,Rolling Intensity/Depth Moderate Body Position Sidelying PT-OP-T Assessment and Plan Start: 11/28/18 17:41 Freq: Status: Active Protocol: Document 12/04/18 15:03 GGD (Rec: 12/04/18 15:16 GGD [email or web address]) Physical Therapy Assessment Assessment Summary Assessment Pt had decrease in pain with treatment. She needed cues for core stabilization with exercise. She had decrease in pain with exercise after cues. Physical Therapy Plan Frequency and Duration Frequency of Treatment 2x/Week Duration of Treatment 12 weeks Plan of Care Start Date 11/28/18 Plan of Care End Date 02/20/19 Next Visit Focus/Plan Next Note Type Treatment Note Next Visit Plan STM, Stretching, Core strengthening, Estim as needed
--- NOTE | 2018-12-06 18:44 | PT.OTN ---
Current Diagnoses Polyneuropathy, unspecified (12/06/18) Pain in right hip (12/06/18) Pain in left hip (12/06/18) Stiffness of right hip, not elsewhere classified (12/06/18) Stiffness of left hip, not elsewhere classified (12/06/18) Spondylolisthesis, lumbar region (12/06/18) Spondylosis without myelopathy or radiculopathy, lumbosacral region (12/06/18) Other intervertebral disc displacement, lumbar region (12/06/18) Muscle weakness (generalized) (12/06/18) Physical Therapy Treatment Note PT-OP-A Visit Information Start: 11/28/18 17:41 Freq: Status: Active Protocol: Document 12/06/18 16:05 HH (Rec: 12/06/18 18:44 HH [email or web address]) Out-Patient Physical Therapy Visit Information Visit Information Visit Type Treatment Note Visit Start Time 16:05 Visit Stop Time 16:50 Total Visit Minutes 45 Visit Number 3 Number of PRODUCTION LABORER Visits 0 PT-OP-B Current Condition Start: 11/28/18 17:41 Freq: Status: Active Protocol: Document 11/28/18 09:45 DCW (Rec: 11/28/18 17:58 DCW [id number]) Current Condition History of Current Condition Onset Date Two years Current Complaints Worsening back pain History of Current Condition Pt is a 78 year old female presenting with progressive low back pain. Pt notes she has had lumbar issues off and on for 20 years, but that six years ago, she was caring for her life partner, who was going through an illness at the time, and strained her back. It has been bad since then, and specifically worsening over the last two years. Additionally, pt notes that she pulled something on Monday in her left posterior hip, which has been causing even more pain and difficulty in her getting around. Pt notes that if she is sitting or lying down, she doesn't feel too bad, but if she stays in a position too samir, she has a large increase in pain when she tries to get up and move around. Pt feels like she has substantially decreased in her level of activity tolerance and overall fitness level. Pt reports that she tries to walk one block every day, and frequently is unable to do so. Pt also has in the past swam 3x/week, and now has not been to the pool in two years. Prior Treatments and Tests Lumbar MRI: IMPRESSION: Multiple levels of lumbar spine degenerative change are seen, which have progressed compared to 2009. The most prominent level of degenerative change is L3-L4, where there is a left lateral recess disc extrusion, with associated moderate to severe central canal narrowing. Moderate to severe bilateral neural foraminal narrowing is also seen at this level. Impression taken from Objective history of pt note from MIRACLE Arriaza on Prior Functional Status Baseline Function- ADL's Independent Baseline Function- Mobility Independent Baseline Function- Gait Walk multiple miles downtown Baseline Function- Recreation/Hobbies Swimming at [employer] pool Current Functional Impairments (Reported) Functional Limitations- Mobility/Gait Pt unable to walk more than one block Functional Limitations- Recreation/ Pt has not gone to pool in [place] past two years. PT-OP-C Subjective Start: 11/28/18 17:41 Freq: Status: Active Protocol: Document 12/06/18 16:05 HH (Rec: 12/06/18 18:44 HH [email or web address]) OP-PT Subjective Patient Comments Patient Comments I felt good on monday but i got very very sore yesterday and my back and leg pain were quite bad. I didnt do any stretches. PT-OP-F Manual Assessment Start: 11/28/18 17:41 Freq: Status: Active Protocol: Document 11/28/18 09:45 DCW (Rec: 11/29/18 12:49 DCW [id number]) Manual Assessments Soft Tissue Assessment Soft Tissue Mobility Assessment Severe tone and tenderness to palpation 3/4:Wincing and withdraw: left piriformis, left ITB Moderate tone and tenderness to palpation 2/4: Pain with wincing: right piriformis, right QL, right ITB PT-OP-K Range of Motion Start: 11/28/18 17:41 Freq: Status: Active Protocol: Document 11/28/18 09:45 DCW (Rec: 11/29/18 12:49 DCW [id number]) Lumbar Spine Range of Motion Lumbar Spine Active Degrees Testing Position Standing Flexion 55 Extension 12 Lateral Flexion Left 57 Lateral Flexion Right 55 ROM Limitations Pain Comments Extension limited secondary to pain PT-OP-L Special Tests Start: 11/28/18 17:41 Freq: Status: Active Protocol: Document 11/28/18 09:45 DCW (Rec: 11/29/18 12:49 DCW [id number]) Special Tests Lumbar Spine Special Tests Standing Flexion Test Results WNL Straight Leg Raise Test Results Negative Slump Test Results Positive R Manual Traction Test Results Relief of pain Compression Test Results Oh, that feels so good Hip Special Tests Lateral SI Compression Test Results Negative Anterior SI Sheer Test Results Negative Piriformis Test Results Positive B PARAS Test Results Positive left ipsilateral lateral hip pain PT-OP-M Strength Start: 11/28/18 17:41 Freq: Status: Active Protocol: Document 11/28/18 09:45 DCW (Rec: 11/29/18 12:49 DCW [id number]) Trunk Strength Trunk Manual Muscle Testing Core Stabilization Pt has difficulty properly erica TrA with verbal and tactile cues, MMT: 3-/5 Hip Strength Hip Manual Muscle Testing Right Flexion (L2) 4 Good Abduction 4 Good Adduction 4 Good External Rotation 4+ Good+ Internal Rotation 4+ Good+ Left Flexion (L2) 4- Good- Abduction 3+ Fair+ Adduction 4- Good- External Rotation 4+ Good+ Internal Rotation 4+ Good+ Knee Strength Knee Manual Muscle Testing Right Flexion (S2) 4 Good Extension (L3) 4+ Good+ Left Flexion (S2) 4+ Good+ Extension (L3) 4+ Good+ Ankle/Foot Strength Ankle and Foot Manual Muscle Testing Right Dorsiflexion (L4) 4 Good Plantarflexion (S1) 4 Good Left Dorsiflexion (L4) 4 Good Plantarflexion (S1) 4 Good PT-OP-Q Treatments Start: 11/28/18 17:41 Freq: Status: Active Protocol: Document 12/06/18 16:05 HH (Rec: 12/06/18 18:44 HH [email or web address]) Therapeutic Exercises Supine Exercises marches with TA Reps/Minutes 10 Comments cues for core lower trunk rotation Supine Exercise Name LTR Side bilateral Reps/Minutes 10 Comments cues on flat back bridges Supine Exercise Name with ball squeeze Side bilateral Reps/Minutes 10 Comments cues Piriformis stretch Supine Exercise Name Figure-4, Rcld-yp-evxcacqx shoulder Side bilateral Sitting Exercises ball roll Sitting Exercise Name forward and diagonal Side bilateral Equipment Used diaz therapy ball Other Exercises sit to stand Other Exercise Name sit to stand Reps/Minutes 8 x2 Comments with hip hinge Manual Therapy Treatment Soft Tissue Mobilization L/S and glutes Body Location L/S and glutes Mobilization Type Myofascial Release,Rolling Intensity/Depth Moderate Body Position Sidelying Joint Mobilizations lumbar distraction Grade III Body Position Hooklying Reps/Duration 10 secs hold x 8 Comments with belt PT-OP-T Assessment and Plan Start: 11/28/18 17:41 Freq: Status: Active Protocol: Document 12/06/18 16:05 (Rec: 12/06/18 18:44 [email or web address]) Physical Therapy Assessment Goals Four Impairment Core and hip weakness Short Term Goal (STG) Pt to demonstrate increased hip abduction bilaterally to 4 +/5 STG Duration 01/02/19 Assisted Goal (LTG) Pt to exhibit core/TrA MMT 4-/ 5 LTG Duration 02/20/19 Three Impairment Pt has not been able to swim for two years Manager Lean Goal (LTG) Pt to return to community pool independently for exercise with no increased back pain LTG Duration 02/20/19 Two Impairment Pt only able to walk <one square block due to pain Short Term Goal (STG) Pt to ambulate 1/2 mile with no increased pain STG Duration 01/02/19 Manager Lean Goal (LTG) Pt to ambulate one mile with no increased pain LTG Duration 02/20/19 One Impairment Pt does not have an appropriate home exercise program Short Term Goal (STG) Pt to be independent and compliant with an appropriate HEP STG Duration 12/28/18 Assessment Summary Assessment Back up on ex intensity today and focus on gentle AROM. Pt reports her pain tends to relieve with lumbar flexion. Physical Therapy Plan Next Visit Focus/Plan Next Note Type Treatment Note Next Visit Plan STM, Stretching, Core strengthening, Estim as needed
--- NOTE | 2018-12-11 11:15 | PT.OTN ---
Current Diagnoses Polyneuropathy, unspecified (12/11/18) Pain in right hip (12/11/18) Pain in left hip (12/11/18) Stiffness of right hip, not elsewhere classified (12/11/18) Stiffness of left hip, not elsewhere classified (12/11/18) Spondylolisthesis, lumbar region (12/11/18) Spondylosis without myelopathy or radiculopathy, lumbosacral region (12/11/18) Other intervertebral disc displacement, lumbar region (12/11/18) Muscle weakness (generalized) (12/11/18) Physical Therapy Treatment Note PT-OP-A Visit Information Start: 11/28/18 17:41 Freq: Status: Active Protocol: Document 12/11/18 10:30 DCW (Rec: 12/11/18 11:15 DCW [id number]) Out-Patient Physical Therapy Visit Information Visit Information Visit Type Treatment Note Visit Start Time 10:30 Visit Stop Time 11:15 Total Visit Minutes 45 Visit Number 4 Number of RAILROAD YARD WORKER Visits 0 Evaluation Information Evaluation Date 11/28/18 PT-OP-B Current Condition Start: 11/28/18 17:41 Freq: Status: Active Protocol: Document 11/28/18 09:45 DCW (Rec: 11/28/18 17:58 DCW [id number]) Current Condition History of Current Condition Onset Date Two years Current Complaints Worsening back pain History of Current Condition Pt is a 78 year old female presenting with progressive low back pain. Pt notes she has had lumbar issues off and on for 20 years, but that six years ago, she was caring for her life partner, who was going through an illness at the time, and strained her back. It has been bad since then, and specifically worsening over the last two years. Additionally, pt notes that she pulled something on Monday in her left posterior hip, which has been causing even more pain and difficulty in her getting around. Pt notes that if she is sitting or lying down, she doesn't feel too bad, but if she stays in a position too samir, she has a large increase in pain when she tries to get up and move around. Pt feels like she has substantially decreased in her level of activity tolerance and overall fitness level. Pt reports that she tries to walk one block every day, and frequently is unable to do so. Pt also has in the past swam 3x/week, and now has not been to the pool in two years. 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 The most prominent level of degenerative change is L3-L4, where there is a left lateral recess disc extrusion, with associated moderate to severe central canal narrowing. Moderate to severe bilateral neural foraminal narrowing is also seen at this level. Impression taken from Objective history of pt note from MIRACLE Arriaza on Prior Functional Status Baseline Function- ADL's Independent Baseline Function- Mobility Independent Baseline Function- Gait Walk multiple miles downtown Baseline Function- Recreation/Hobbies Swimming at [facility] pool Current Functional Impairments (Reported) Functional Limitations- Mobility/Gait Pt unable to walk more than one block Functional Limitations- Recreation/ Pt has not gone to pool in [place] past two years. PT-OP-C Subjective Start: 11/28/18 17:41 Freq: Status: Active Protocol: Document 12/11/18 10:30 DCW (Rec: 12/11/18 11:15 DCW [id number]) OP-PT Subjective Patient Comments Patient Comments After 's workout, I could barely get out of bed on Monday. Pt also notes that she may be getting an injection next Monday, so she may have to cancel her upcoming PT appointment. PT-OP-F Manual Assessment Start: 11/28/18 17:41 Freq: Status: Active Protocol: Document 11/28/18 09:45 DCW (Rec: 11/29/18 12:49 DCW [id number]) Manual Assessments Soft Tissue Assessment Soft Tissue Mobility Assessment Severe tone and tenderness to palpation 3/4:Wincing and withdraw: left piriformis, left ITB Moderate tone and tenderness to palpation 2/4: Pain with wincing: right piriformis, right QL, right ITB PT-OP-K Range of Motion Start: 11/28/18 17:41 Freq: Status: Active Protocol: Document 11/28/18 09:45 DCW (Rec: 11/29/18 12:49 DCW [id number]) Lumbar Spine Range of Motion Lumbar Spine Active Degrees Testing Position Standing Flexion 55 Extension 12 Lateral Flexion Left 57 Lateral Flexion Right 55 ROM Limitations Pain Comments Extension limited secondary to pain PT-OP-L Special Tests Start: 11/28/18 17:41 Freq: Status: Active Protocol: Document 11/28/18 09:45 DCW (Rec: 11/29/18 12:49 DCW [id number]) Special Tests Lumbar Spine Special Tests Standing Flexion Test Results WNL Straight Leg Raise Test Results Negative Slump Test Results Positive R Manual Traction Test Results Relief of pain Compression Test Results Oh, that feels so good Hip Special Tests Lateral SI Compression Test Results Negative Anterior SI Sheer Test Results Negative Piriformis Test Results Positive B PARAS Test Results Positive left ipsilateral lateral hip pain PT-OP-M Strength Start: 11/28/18 17:41 Freq: Status: Active Protocol: Document 11/28/18 09:45 DCW (Rec: 11/29/18 12:49 DCW [id number]) Trunk Strength Trunk Manual Muscle Testing Core Stabilization Pt has difficulty properly erica TrA with verbal and tactile cues, MMT: 3-/5 Hip Strength Hip Manual Muscle Testing Right Flexion (L2) 4 Good Abduction 4 Good Adduction 4 Good External Rotation 4+ Good+ Internal Rotation 4+ Good+ Left Flexion (L2) 4- Good- Abduction 3+ Fair+ Adduction 4- Good- External Rotation 4+ Good+ Internal Rotation 4+ Good+ Knee Strength Knee Manual Muscle Testing Right Flexion (S2) 4 Good Extension (L3) 4+ Good+ Left Flexion (S2) 4+ Good+ Extension (L3) 4+ Good+ Ankle/Foot Strength Ankle and Foot Manual Muscle Testing Right Dorsiflexion (L4) 4 Good Plantarflexion (S1) 4 Good Left Dorsiflexion (L4) 4 Good Plantarflexion (S1) 4 Good PT-OP-Q Treatments Start: 11/28/18 17:41 Freq: Status: Active Protocol: Document 12/11/18 10:30 DCW (Rec: 12/11/18 11:15 DCW [id number]) Cardio Equipment Recumbent Elliptical (Biodex) Duration (Minutes) 5 Resistance 3 Seat Position 8 Therapeutic Exercises Supine Exercises lower trunk rotation Supine Exercise Name LTR Side bilateral Reps/Minutes 10 Comments cues on flat back bridges Supine Exercise Name with ball squeeze Side bilateral Reps/Minutes 10 Comments cues Piriformis stretch Supine Exercise Name Figure-4, Wfgy-ew-socjctpx shoulder Side bilateral Manual Therapy Treatment Soft Tissue Mobilization Piriformis Body Location B Piriformis Mobilization Type Myofascial Release,Strumming, Sustained Pressure Intensity/Depth Moderate Body Position Sidelying L/S and glutes Body Location B L/S and glutes Mobilization Type Myofascial Release,Rolling Intensity/Depth Moderate Body Position Sidelying PT-OP-T Assessment and Plan Start: 11/28/18 17:41 Freq: Status: Active Protocol: Document 12/11/18 10:30 DCW (Rec: 12/11/18 11:15 DCW [id number]) Physical Therapy Assessment Goals Four Impairment Core and hip weakness Short Term Goal (STG) Pt to demonstrate increased hip abduction bilaterally to 4 +/5 STG Duration 01/02/19 Custodial Goal (LTG) Pt to exhibit core/TrA MMT 4-/ 5 LTG Duration 02/20/19 Three Impairment Pt has not been able to swim for two years Chamber Worker Goal (LTG) Pt to return to community pool independently for exercise with no increased back pain LTG Duration 02/20/19 Two Impairment Pt only able to walk <one square block due to pain Short Term Goal (STG) Pt to ambulate 1/2 mile with no increased pain STG Duration 01/02/19 Chamber Worker Goal (LTG) Pt to ambulate one mile with no increased pain LTG Duration 02/20/19 One Impairment Pt does not have an appropriate home exercise program Short Term Goal (STG) Pt to be independent and compliant with an appropriate HEP STG Duration 12/28/18 Assessment Summary Assessment Decreased intensity of workout following pt's complaints of long-lasting fatigue following last appointment. Physical Therapy Plan Frequency and Duration Frequency of Treatment 2x/Week Duration of Treatment 12 weeks Plan of Care Start Date 11/28/18 Plan of Care End Date 02/20/19 Next Visit Focus/Plan Next Note Type Treatment Note Next Visit Plan STM, Stretching, Core strengthening, Estim as needed
--- NOTE | 2018-12-17 11:59 | PT.OTN ---
Current Diagnoses Polyneuropathy, unspecified (12/17/18) Pain in right hip (12/17/18) Pain in left hip (12/17/18) Stiffness of right hip, not elsewhere classified (12/17/18) Stiffness of left hip, not elsewhere classified (12/17/18) Spondylolisthesis, lumbar region (12/17/18) Spondylosis without myelopathy or radiculopathy, lumbosacral region (12/17/18) Other intervertebral disc displacement, lumbar region (12/17/18) Muscle weakness (generalized) (12/17/18) Physical Therapy Treatment Note PT-OP-A Visit Information Start: 11/28/18 17:41 Freq: Status: Active Protocol: Document 12/17/18 11:15 DCW (Rec: 12/17/18 11:59 DCW [id number]) Out-Patient Physical Therapy Visit Information Visit Information Visit Type Treatment Note Visit Start Time 11:15 Visit Stop Time 12:00 Total Visit Minutes 45 Visit Number 5 Number of PAPER WRAPPING MACHINE OPERATOR Visits 0 Evaluation Information Evaluation Date 11/28/18 PT-OP-B Current Condition Start: 11/28/18 17:41 Freq: Status: Active Protocol: Document 11/28/18 09:45 DCW (Rec: 11/28/18 17:58 DCW [id number]) Current Condition History of Current Condition Onset Date Two years Current Complaints Worsening back pain History of Current Condition Pt is a 78 year old female presenting with progressive low back pain. Pt notes she has had lumbar issues off and on for 20 years, but that six years ago, she was caring for her life partner, who was going through an illness at the time, and strained her back. It has been bad since then, and specifically worsening over the last two years. Additionally, pt notes that she pulled something on Monday in her left posterior hip, which has been causing even more pain and difficulty in her getting around. Pt notes that if she is sitting or lying down, she doesn't feel too bad, but if she stays in a position too samir, she has a large increase in pain when she tries to get up and move around. Pt feels like she has substantially decreased in her level of activity tolerance and overall fitness level. Pt reports that she tries to walk one block every day, and frequently is unable to do so. Pt also has in the past swam 3x/week, and now has not been to the pool in two years. 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 The most prominent level of degenerative change is L3-L4, where there is a left lateral recess disc extrusion, with associated moderate to severe central canal narrowing. Moderate to severe bilateral neural foraminal narrowing is also seen at this level. Impression taken from Objective history of pt note from MIRACLE Arriaza on Prior Functional Status Baseline Function- ADL's Independent Baseline Function- Mobility Independent Baseline Function- Gait Walk multiple miles downtown Baseline Function- Recreation/Hobbies Swimming at community pool Current Functional Impairments (Reported) Functional Limitations- Mobility/Gait Pt unable to walk more than one block Functional Limitations- Recreation/ Pt has not gone to pool in [place] past two years. PT-OP-C Subjective Start: 11/28/18 17:41 Freq: Status: Active Protocol: Document 12/17/18 11:15 DCW (Rec: 12/17/18 11:59 DCW [id number]) OP-PT Subjective Patient Comments Patient Comments Pt reports that she always has a lot more pain when it is cold and rain, like it is today. Pt notes that she has felt a lot of pain in her low back and down the back of her legs today. PT-OP-F Manual Assessment Start: 11/28/18 17:41 Freq: Status: Active Protocol: Document 11/28/18 09:45 DCW (Rec: 11/29/18 12:49 DCW [id number]) Manual Assessments Soft Tissue Assessment Soft Tissue Mobility Assessment Severe tone and tenderness to palpation 3/4:Wincing and withdraw: left piriformis, left ITB Moderate tone and tenderness to palpation 2/4: Pain with wincing: right piriformis, right QL, right ITB PT-OP-K Range of Motion Start: 11/28/18 17:41 Freq: Status: Active Protocol: Document 11/28/18 09:45 DCW (Rec: 11/29/18 12:49 DCW [id number]) Lumbar Spine Range of Motion Lumbar Spine Active Degrees Testing Position Standing Flexion 55 Extension 12 Lateral Flexion Left 57 Lateral Flexion Right 55 ROM Limitations Pain Comments Extension limited secondary to pain PT-OP-L Special Tests Start: 11/28/18 17:41 Freq: Status: Active Protocol: Document 11/28/18 09:45 DCW (Rec: 11/29/18 12:49 DCW [id number]) Special Tests Lumbar Spine Special Tests Standing Flexion Test Results WNL Straight Leg Raise Test Results Negative Slump Test Results Positive R Manual Traction Test Results Relief of pain Compression Test Results Oh, that feels so good Hip Special Tests Lateral SI Compression Test Results Negative Anterior SI Sheer Test Results Negative Piriformis Test Results Positive B PARAS Test Results Positive left ipsilateral lateral hip pain PT-OP-M Strength Start: 11/28/18 17:41 Freq: Status: Active Protocol: Document 11/28/18 09:45 DCW (Rec: 11/29/18 12:49 DCW [id number]) Trunk Strength Trunk Manual Muscle Testing Core Stabilization Pt has difficulty properly erica TrA with verbal and tactile cues, MMT: 3-/5 Hip Strength Hip Manual Muscle Testing Right Flexion (L2) 4 Good Abduction 4 Good Adduction 4 Good External Rotation 4+ Good+ Internal Rotation 4+ Good+ Left Flexion (L2) 4- Good- Abduction 3+ Fair+ Adduction 4- Good- External Rotation 4+ Good+ Internal Rotation 4+ Good+ Knee Strength Knee Manual Muscle Testing Right Flexion (S2) 4 Good Extension (L3) 4+ Good+ Left Flexion (S2) 4+ Good+ Extension (L3) 4+ Good+ Ankle/Foot Strength Ankle and Foot Manual Muscle Testing Right Dorsiflexion (L4) 4 Good Plantarflexion (S1) 4 Good Left Dorsiflexion (L4) 4 Good Plantarflexion (S1) 4 Good PT-OP-Q Treatments Start: 11/28/18 17:41 Freq: Status: Active Protocol: Document 12/17/18 11:15 DCW (Rec: 12/17/18 11:59 DCW [id number]) Cardio Equipment Recumbent Elliptical (Biodex) Duration (Minutes) 6 Resistance 4 Seat Position 8 Gym Equipment Shuttle Recovery Unilateral Squats Resistance 37# Shuttle Recovery Platform Stable Bilateral Squats Resistance 75# Shuttle Recovery Platform Stable Therapeutic Exercises Supine Exercises lower trunk rotation Supine Exercise Name LTR Side bilateral Equipment Used 45 cm T-ball Reps/Minutes 10 Comments cues on flat back bridges Supine Exercise Name with ball squeeze Side bilateral Reps/Minutes 10 Comments cues Piriformis stretch Supine Exercise Name Figure-4, [id number] shoulder Side bilateral Manual Therapy Treatment Soft Tissue Mobilization Piriformis Body Location B Piriformis Mobilization Type Myofascial Release,Strumming, Sustained Pressure Intensity/Depth Moderate Body Position Sidelying L/S and glutes Body Location B L/S and glutes Mobilization Type Myofascial Release,Rolling Intensity/Depth Moderate Body Position Sidelying PT-OP-T Assessment and Plan Start: 11/28/18 17:41 Freq: Status: Active Protocol: Document 12/17/18 11:15 DCW (Rec: 12/17/18 11:59 DCW [id number]) Physical Therapy Assessment Goals Four Impairment Core and hip weakness Short Term Goal (STG) Pt to demonstrate increased hip abduction bilaterally to 4 +/5 STG Duration 01/02/19 Skilled Nursing Goal (LTG) Pt to exhibit core/TrA MMT 4-/ 5 LTG Duration 02/20/19 Three Impairment Pt has not been able to swim for two years Skilled Nursing Goal (LTG) Pt to return to community pool independently for exercise with no increased back pain LTG Duration 02/20/19 Two Impairment Pt only able to walk <one square block due to pain Short Term Goal (STG) Pt to ambulate 1/2 mile with no increased pain STG Duration 01/02/19 Board Finisher Goal (LTG) Pt to ambulate one mile with no increased pain LTG Duration 02/20/19 One Impairment Pt does not have an appropriate home exercise program Short Term Goal (STG) Pt to be independent and compliant with an appropriate HEP STG Duration 12/28/18 Assessment Summary Assessment Pt noted that she felt better than she has in weeks following her last appointment , although it only lasted through the end of the day. Pt getting injection tomorrow in her lumbar spine. Pt tolerated today's treatment well today. Physical Therapy Plan Frequency and Duration Frequency of Treatment 2x/Week Duration of Treatment 12 weeks Plan of Care Start Date 11/28/18 Plan of Care End Date 02/20/19 Next Visit Focus/Plan Next Note Type Treatment Note Next Visit Plan STM, Stretching, Core strengthening, Estim as needed
--- NOTE | 2018-12-27 15:15 | PT.OTN ---
Current Diagnoses Polyneuropathy, unspecified (12/27/18) Pain in right hip (12/27/18) Pain in left hip (12/27/18) Stiffness of right hip, not elsewhere classified (12/27/18) Stiffness of left hip, not elsewhere classified (12/27/18) Spondylolisthesis, lumbar region (12/27/18) Spondylosis without myelopathy or radiculopathy, lumbosacral region (12/27/18) Other intervertebral disc displacement, lumbar region (12/27/18) Muscle weakness (generalized) (12/27/18) Physical Therapy Treatment Note PT-OP-A Visit Information Start: 11/28/18 17:41 Freq: Status: Active Protocol: Document 12/27/18 14:35 DCW (Rec: 12/27/18 15:15 DCW [id number]) Out-Patient Physical Therapy Visit Information Visit Information Visit Type Treatment Note Visit Start Time 14:35 Visit Stop Time 15:15 Total Visit Minutes 40 Visit Number 6 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 Pt notes she has had lumbar issues off and on for 20 years, but that six years ago, she was caring for her life partner, who was going through an illness at the time, and strained her back. It has been bad since then, and specifically worsening over the last two years. Additionally, pt notes that she pulled something on Monday in her left posterior hip, which has been causing even more pain and difficulty in her getting around. Pt notes that if she is sitting or lying down, she doesn't feel too bad, but if she stays in a position too samir, she has a large increase in pain when she tries to get up and move around. Pt feels like she has substantially decreased in her level of activity tolerance and overall fitness level. Pt reports that she tries to walk one block every day, and frequently is unable to do so. Pt also has in the past swam 3x/week, and now has not been to the pool in two years. 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 The most prominent level of degenerative change is L3-L4, where there is a left lateral recess disc extrusion, with associated moderate to severe central canal narrowing. Moderate to severe bilateral neural foraminal narrowing is also seen at this level. Impression taken from Objective history of pt note from MIRACLE Arriaza on Prior Functional Status Baseline Function- ADL's Independent Baseline Function- Mobility Independent Baseline Function- Gait Walk multiple miles downtown Baseline Function- Recreation/Hobbies Swimming at community pool Current Functional Impairments (Reported) Functional Limitations- Mobility/Gait Pt unable to walk more than one block Functional Limitations- Recreation/ Pt has not gone to pool in [place] past two years. PT-OP-C Subjective Start: 11/28/18 17:41 Freq: Status: Active Protocol: Document 12/27/18 14:35 DCW (Rec: 12/27/18 15:15 DCW [id number]) OP-PT Subjective Patient Comments Patient Comments I got four shots last week, and now I'm in more pain than I was before. That doesn't seem right. PT-OP-F Manual Assessment Start: 11/28/18 17:41 Freq: Status: Active Protocol: Document 11/28/18 09:45 DCW (Rec: 11/29/18 12:49 DCW [id number]) Manual Assessments Soft Tissue Assessment Soft Tissue Mobility Assessment Severe tone and tenderness to palpation 3/4:Wincing and withdraw: left piriformis, left ITB Moderate tone and tenderness to palpation 2/4: Pain with wincing: right piriformis, right QL, right ITB PT-OP-K Range of Motion Start: 11/28/18 17:41 Freq: Status: Active Protocol: Document 11/28/18 09:45 DCW (Rec: 11/29/18 12:49 DCW [id number]) Lumbar Spine Range of Motion Lumbar Spine Active Degrees Testing Position Standing Flexion 55 Extension 12 Lateral Flexion Left 57 Lateral Flexion Right 55 ROM Limitations Pain Comments Extension limited secondary to pain PT-OP-L Special Tests Start: 11/28/18 17:41 Freq: Status: Active Protocol: Document 11/28/18 09:45 DCW (Rec: 11/29/18 12:49 DCW [id number]) Special Tests Lumbar Spine Special Tests Standing Flexion Test Results WNL Straight Leg Raise Test Results Negative Slump Test Results Positive R Manual Traction Test Results Relief of pain Compression Test Results Oh, that feels so good Hip Special Tests Lateral SI Compression Test Results Negative Anterior SI Sheer Test Results Negative Piriformis Test Results Positive B PARAS Test Results Positive left ipsilateral lateral hip pain PT-OP-M Strength Start: 11/28/18 17:41 Freq: Status: Active Protocol: Document 11/28/18 09:45 DCW (Rec: 11/29/18 12:49 DCW [id number]) Trunk Strength Trunk Manual Muscle Testing Core Stabilization Pt has difficulty properly erica TrA with verbal and tactile cues, MMT: 3-/5 Hip Strength Hip Manual Muscle Testing Right Flexion (L2) 4 Good Abduction 4 Good Adduction 4 Good External Rotation 4+ Good+ Internal Rotation 4+ Good+ Left Flexion (L2) 4- Good- Abduction 3+ Fair+ Adduction 4- Good- External Rotation 4+ Good+ Internal Rotation 4+ Good+ Knee Strength Knee Manual Muscle Testing Right Flexion (S2) 4 Good Extension (L3) 4+ Good+ Left Flexion (S2) 4+ Good+ Extension (L3) 4+ Good+ Ankle/Foot Strength Ankle and Foot Manual Muscle Testing Right Dorsiflexion (L4) 4 Good Plantarflexion (S1) 4 Good Left Dorsiflexion (L4) 4 Good Plantarflexion (S1) 4 Good PT-OP-Q Treatments Start: 11/28/18 17:41 Freq: Status: Active Protocol: Document 12/27/18 14:35 DCW (Rec: 12/27/18 15:15 DCW [id number]) Cardio Equipment Recumbent Stepper (Sci-Fit) Duration (Minutes) 5 Resistance 3 Seat Position 9 Gym Equipment Shuttle Recovery Unilateral Squats Resistance 37# Shuttle Recovery Platform Stable Bilateral Squats Resistance 75#->50# Shuttle Recovery Platform Stable Reps/Time c/o R leg pain Manual Therapy Treatment Soft Tissue Mobilization Piriformis Body Location B Piriformis Mobilization Type Myofascial Release,Strumming, Sustained Pressure Intensity/Depth Moderate Body Position Sidelying L/S and glutes Body Location B L/S and glutes Mobilization Type Myofascial Release,Rolling Intensity/Depth Moderate Body Position Sidelying PT-OP-T Assessment and Plan Start: 11/28/18 17:41 Freq: Status: Active Protocol: Document 12/27/18 14:35 DCW (Rec: 12/27/18 15:15 DCW [id number]) Physical Therapy Assessment Goals Four Impairment Core and hip weakness Short Term Goal (STG) Pt to demonstrate increased hip abduction bilaterally to 4 +/5 STG Duration 01/02/19 Athlete Manager Goal (LTG) Pt to exhibit core/TrA MMT 4-/ 5 LTG Duration 02/20/19 Three Impairment Pt has not been able to swim for two years Athlete Manager Goal (LTG) Pt to return to community pool independently for exercise with no increased back pain LTG Duration 02/20/19 Two Impairment Pt only able to walk <one square block due to pain Short Term Goal (STG) Pt to ambulate 1/2 mile with no increased pain STG Duration 01/02/19 Athlete Manager Goal (LTG) Pt to ambulate one mile with no increased pain LTG Duration 02/20/19 One Impairment Pt does not have an appropriate home exercise program Short Term Goal (STG) Pt to be independent and compliant with an appropriate HEP STG Duration 12/28/18 Assessment Summary Assessment Pt clearly struggling with pain today, unable to perform her typical level of exercise today. Pt required multiple rest breaks, and in the end just had to lay on plinth for manual therapy Physical Therapy Plan Frequency and Duration Frequency of Treatment 2x/Week Duration of Treatment 12 weeks Plan of Care Start Date 11/28/18 Plan of Care End Date 02/20/19 Next Visit Focus/Plan Next Note Type Treatment Note Next Visit Plan STM, Stretching, Core strengthening, Estim as needed
--- NOTE | 2018-12-31 11:59 | PT.OTN ---
Current Diagnoses Polyneuropathy, unspecified (12/31/18) Pain in right hip (12/31/18) Pain in left hip (12/31/18) Stiffness of right hip, not elsewhere classified (12/31/18) Stiffness of left hip, not elsewhere classified (12/31/18) Spondylolisthesis, lumbar region (12/31/18) Spondylosis without myelopathy or radiculopathy, lumbosacral region (12/31/18) Other intervertebral disc displacement, lumbar region (12/31/18) Muscle weakness (generalized) (12/31/18) Physical Therapy Treatment Note PT-OP-A Visit Information Start: 11/28/18 17:41 Freq: Status: Active Protocol: Document 12/31/18 11:20 DCW (Rec: 12/31/18 11:58 DCW [id number]) Out-Patient Physical Therapy Visit Information Visit Information Visit Type Treatment Note Visit Start Time 11:20 Visit Stop Time 12:00 Total Visit Minutes 40 Visit Number 7 Number of FURNACE CHARGING MACHINE OPERATOR Visits 0 Evaluation Information Evaluation Date 11/28/18 PT-OP-B Current Condition Start: 11/28/18 17:41 Freq: Status: Active Protocol: Document 11/28/18 09:45 DCW (Rec: 11/28/18 17:58 DCW [id number]) Current Condition History of Current Condition Onset Date Two years Current Complaints Worsening back pain History of Current Condition Pt is a 78 year old female presenting with progressive low back pain. Pt notes she has had lumbar issues off and on for 20 years, but that six years ago, she was caring for her life partner, who was going through an illness at the time, and strained her back. It has been bad since then, and specifically worsening over the last two years. Additionally, pt notes that she pulled something on Monday in her left posterior hip, which has been causing even more pain and difficulty in her getting around. Pt notes that if she is sitting or lying down, she doesn't feel too bad, but if she stays in a position too samir, she has a large increase in pain when she tries to get up and move around. Pt feels like she has substantially decreased in her level of activity tolerance and overall fitness level. Pt reports that she tries to walk one block every day, and frequently is unable to do so. Pt also has in the past swam 3x/week, and now has not been to the pool in two years. 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 The most prominent level of degenerative change is L3-L4, where there is a left lateral recess disc extrusion, with associated moderate to severe central canal narrowing. Moderate to severe bilateral neural foraminal narrowing is also seen at this level. Impression taken from Objective history of pt note from MIRACLE Arriaza on Prior Functional Status Baseline Function- ADL's Independent Baseline Function- Mobility Independent Baseline Function- Gait Walk multiple miles downtown Baseline Function- Recreation/Hobbies Swimming at community pool Current Functional Impairments (Reported) Functional Limitations- Mobility/Gait Pt unable to walk more than one block Functional Limitations- Recreation/ Pt has not gone to pool in [place] past two years. PT-OP-C Subjective Start: 11/28/18 17:41 Freq: Status: Active Protocol: Document 12/31/18 11:20 DCW (Rec: 12/31/18 11:58 DCW [id number]) OP-PT Subjective Patient Comments Patient Comments Not surprisingly, my pain has moved again. Now it is just right smack dab in the middle of my back. PT-OP-F Manual Assessment Start: 11/28/18 17:41 Freq: Status: Active Protocol: Document 11/28/18 09:45 DCW (Rec: 11/29/18 12:49 DCW [id number]) Manual Assessments Soft Tissue Assessment Soft Tissue Mobility Assessment Severe tone and tenderness to palpation 3/4:Wincing and withdraw: left piriformis, left ITB Moderate tone and tenderness to palpation 2/4: Pain with wincing: right piriformis, right QL, right ITB PT-OP-K Range of Motion Start: 11/28/18 17:41 Freq: Status: Active Protocol: Document 11/28/18 09:45 DCW (Rec: 11/29/18 12:49 DCW [id number]) Lumbar Spine Range of Motion Lumbar Spine Active Degrees Testing Position Standing Flexion 55 Extension 12 Lateral Flexion Left 57 Lateral Flexion Right 55 ROM Limitations Pain Comments Extension limited secondary to pain PT-OP-L Special Tests Start: 11/28/18 17:41 Freq: Status: Active Protocol: Document 11/28/18 09:45 DCW (Rec: 11/29/18 12:49 DCW [id number]) Special Tests Lumbar Spine Special Tests Standing Flexion Test Results WNL Straight Leg Raise Test Results Negative Slump Test Results Positive R Manual Traction Test Results Relief of pain Compression Test Results Oh, that feels so good Hip Special Tests Lateral SI Compression Test Results Negative Anterior SI Sheer Test Results Negative Piriformis Test Results Positive B PARAS Test Results Positive left ipsilateral lateral hip pain PT-OP-M Strength Start: 11/28/18 17:41 Freq: Status: Active Protocol: Document 11/28/18 09:45 DCW (Rec: 11/29/18 12:49 DCW [id number]) Trunk Strength Trunk Manual Muscle Testing Core Stabilization Pt has difficulty properly erica TrA with verbal and tactile cues, MMT: 3-/5 Hip Strength Hip Manual Muscle Testing Right Flexion (L2) 4 Good Abduction 4 Good Adduction 4 Good External Rotation 4+ Good+ Internal Rotation 4+ Good+ Left Flexion (L2) 4- Good- Abduction 3+ Fair+ Adduction 4- Good- External Rotation 4+ Good+ Internal Rotation 4+ Good+ Knee Strength Knee Manual Muscle Testing Right Flexion (S2) 4 Good Extension (L3) 4+ Good+ Left Flexion (S2) 4+ Good+ Extension (L3) 4+ Good+ Ankle/Foot Strength Ankle and Foot Manual Muscle Testing Right Dorsiflexion (L4) 4 Good Plantarflexion (S1) 4 Good Left Dorsiflexion (L4) 4 Good Plantarflexion (S1) 4 Good PT-OP-Q Treatments Start: 11/28/18 17:41 Freq: Status: Active Protocol: Document 12/31/18 11:20 DCW (Rec: 12/31/18 11:58 DCW [id number]) Cardio Equipment Recumbent Elliptical (Biodex) Duration (Minutes) 5 Resistance 4 Seat Position 8 Gym Equipment Shuttle Recovery Unilateral Squats Resistance 37# Shuttle Recovery Platform Stable Bilateral Squats Resistance 75# Shuttle Recovery Platform Stable Therapeutic Exercises Supine Exercises lower trunk rotation Supine Exercise Name LTR Side bilateral Equipment Used 45 cm T-ball Reps/Minutes 10 Comments cues on flat back bridges Supine Exercise Name with ball squeeze Side bilateral Reps/Minutes 10 Comments cues Piriformis stretch Supine Exercise Name Figure-4, Obca-co-cqmpdnsz shoulder Side bilateral Manual Therapy Treatment Soft Tissue Mobilization Piriformis Body Location B Piriformis Mobilization Type Myofascial Release,Strumming, Sustained Pressure Intensity/Depth Moderate Body Position Sidelying L/S and glutes Body Location B L/S and glutes Mobilization Type Myofascial Release,Rolling Intensity/Depth Moderate Body Position Sidelying PT-OP-T Assessment and Plan Start: 11/28/18 17:41 Freq: Status: Active Protocol: Document 12/31/18 11:20 DCW (Rec: 12/31/18 11:58 DCW [id number]) Physical Therapy Assessment Goals Four Impairment Core and hip weakness Short Term Goal (STG) Pt to demonstrate increased hip abduction bilaterally to 4 +/5 STG Duration 01/02/19 Alf Goal (LTG) Pt to exhibit core/TrA MMT 4-/ 5 LTG Duration 02/20/19 Three Impairment Pt has not been able to swim for two years Alf Goal (LTG) Pt to return to community pool independently for exercise with no increased back pain LTG Duration 02/20/19 Two Impairment Pt only able to walk <one square block due to pain Short Term Goal (STG) Pt to ambulate 1/2 mile with no increased pain STG Duration 01/02/19 Alf Goal (LTG) Pt to ambulate one mile with no increased pain LTG Duration 02/20/19 One Impairment Pt does not have an appropriate home exercise program Short Term Goal (STG) Pt to be independent and compliant with an appropriate HEP STG Duration 12/28/18 Assessment Summary Assessment Pt moving much better today than last week, able to tolerate her TherEx with minimal complaints. Physical Therapy Plan Frequency and Duration Frequency of Treatment 2x/Week Duration of Treatment 12 weeks Plan of Care Start Date 11/28/18 Plan of Care End Date 02/20/19 Next Visit Focus/Plan Next Note Type Treatment Note Next Visit Plan STM, Stretching, Core strengthening, Estim as needed
--- NOTE | 2019-01-03 18:03 | PT.OTN ---
Current Diagnoses Polyneuropathy, unspecified (01/03/19) Pain in right hip (01/03/19) Pain in left hip (01/03/19) Stiffness of right hip, not elsewhere classified (01/03/19) Stiffness of left hip, not elsewhere classified (01/03/19) Spondylolisthesis, lumbar region (01/03/19) Spondylosis without myelopathy or radiculopathy, lumbosacral region (01/03/19) Other intervertebral disc displacement, lumbar region (01/03/19) Muscle weakness (generalized) (01/03/19) Physical Therapy Treatment Note PT-OP-A Visit Information Start: 11/28/18 17:41 Freq: Status: Active Protocol: Document 01/03/19 11:17 HH (Rec: 01/03/19 18:03 HH [id number]) Out-Patient Physical Therapy Visit Information Visit Information Visit Type Treatment Note Visit Start Time 11:17 Visit Stop Time 12:01 Total Visit Minutes 44 Visit Number 8 Number of RECONSTRUCTIVE SURGEON Visits 0 PT-OP-B Current Condition Start: 11/28/18 17:41 Freq: Status: Active Protocol: Document 11/28/18 09:45 DCW (Rec: 11/28/18 17:58 DCW [id number]) Current Condition History of Current Condition Onset Date Two years Current Complaints Worsening back pain History of Current Condition Pt is a 78 year old female presenting with progressive low back pain. Pt notes she has had lumbar issues off and on for 20 years, but that six years ago, she was caring for her life partner, who was going through an illness at the time, and strained her back. It has been bad since then, and specifically worsening over the last two years. Additionally, pt notes that she pulled something on Monday in her left posterior hip, which has been causing even more pain and difficulty in her getting around. Pt notes that if she is sitting or lying down, she doesn't feel too bad, but if she stays in a position too samir, she has a large increase in pain when she tries to get up and move around. Pt feels like she has substantially decreased in her level of activity tolerance and overall fitness level. Pt reports that she tries to walk one block every day, and frequently is unable to do so. Pt also has in the past swam 3x/week, and now has not been to the pool in two years. Prior Treatments and Tests Lumbar MRI: IMPRESSION: Multiple levels of lumbar spine degenerative change are seen, which have progressed compared to 2009. The most prominent level of degenerative change is L3-L4, where there is a left lateral recess disc extrusion, with associated moderate to severe central canal narrowing. Moderate to severe bilateral neural foraminal narrowing is also seen at this level. Impression taken from Objective history of pt note from MIRAC[facility] Arriaza on Prior Functional Status Baseline Function- ADL's Independent Baseline Function- Mobility Independent Baseline Function- Gait Walk multiple miles downtown Baseline Function- Recreation/Hobbies Swimming at community pool Current Functional Impairments (Reported) Functional Limitations- Mobility/Gait Pt unable to walk more than one block Functional Limitations- Recreation/ Pt has not gone to pool in [place] past two years. PT-OP-C Subjective Start: 11/28/18 17:41 Freq: Status: Active Protocol: Document 01/03/19 11:17 HH (Rec: 01/03/19 18:03 HH [email or web address]) OP-PT Subjective Patient Comments Patient Comments My back is still bad. I often have to go home and lay down for awhile to rest. Laying down is the only time my back feels good. PT-OP-F Manual Assessment Start: 11/28/18 17:41 Freq: Status: Active Protocol: Document 11/28/18 09:45 DCW (Rec: 11/29/18 12:49 DCW [id number]) Manual Assessments Soft Tissue Assessment Soft Tissue Mobility Assessment Severe tone and tenderness to palpation 3/4:Wincing and withdraw: left piriformis, left ITB Moderate tone and tenderness to palpation 2/4: Pain with wincing: right piriformis, right QL, right ITB PT-OP-K Range of Motion Start: 11/28/18 17:41 Freq: Status: Active Protocol: Document 11/28/18 09:45 DCW (Rec: 11/29/18 12:49 DCW [id number]) Lumbar Spine Range of Motion Lumbar Spine Active Degrees Testing Position Standing Flexion 55 Extension 12 Lateral Flexion Left 57 Lateral Flexion Right 55 ROM Limitations Pain Comments Extension limited secondary to pain PT-OP-L Special Tests Start: 11/28/18 17:41 Freq: Status: Active Protocol: Document 11/28/18 09:45 DCW (Rec: 11/29/18 12:49 DCW [id number]) Special Tests Lumbar Spine Special Tests Standing Flexion Test Results WNL Straight Leg Raise Test Results Negative Slump Test Results Positive R Manual Traction Test Results Relief of pain Compression Test Results Oh, that feels so good Hip Special Tests Lateral SI Compression Test Results Negative Anterior SI Sheer Test Results Negative Piriformis Test Results Positive B PARAS Test Results Positive left ipsilateral lateral hip pain PT-OP-M Strength Start: 11/28/18 17:41 Freq: Status: Active Protocol: Document 11/28/18 09:45 DCW (Rec: 11/29/18 12:49 DCW [id number]) Trunk Strength Trunk Manual Muscle Testing Core Stabilization Pt has difficulty properly erica TrA with verbal and tactile cues, MMT: 3-/5 Hip Strength Hip Manual Muscle Testing Right Flexion (L2) 4 Good Abduction 4 Good Adduction 4 Good External Rotation 4+ Good+ Internal Rotation 4+ Good+ Left Flexion (L2) 4- Good- Abduction 3+ Fair+ Adduction 4- Good- External Rotation 4+ Good+ Internal Rotation 4+ Good+ Knee Strength Knee Manual Muscle Testing Right Flexion (S2) 4 Good Extension (L3) 4+ Good+ Left Flexion (S2) 4+ Good+ Extension (L3) 4+ Good+ Ankle/Foot Strength Ankle and Foot Manual Muscle Testing Right Dorsiflexion (L4) 4 Good Plantarflexion (S1) 4 Good Left Dorsiflexion (L4) 4 Good Plantarflexion (S1) 4 Good PT-OP-Q Treatments Start: 11/28/18 17:41 Freq: Status: Active Protocol: Document 01/03/19 11:17 HH (Rec: 01/03/19 18:03 HH [email or web address]) Cardio Equipment Recumbent Stepper (Sci-Fit) Duration (Minutes) 5 Resistance 3 Seat Position 9 Therapeutic Exercises Supine Exercises marches with TA Side bilateral Reps/Minutes 6 x4 Comments with half knee flexion lower trunk rotation Supine Exercise Name LTR Side bilateral Equipment Used 45 cm T-ball Reps/Minutes 10 Comments cues on flat back bridges Supine Exercise Name with ball squeeze Side bilateral Reps/Minutes 10 Comments cues Piriformis stretch Supine Exercise Name Figure-4, Jilp-gj-rfvpijmx shoulder Side bilateral Sitting Exercises ball roll Side bilateral Equipment Used citizen of [place] ball Reps/Minutes 7 mins Comments diaz ball roll over Standing Exercises standing ppT Standing Exercise Name Ppt Side bilateral Reps/Minutes 6 mins Comments cues on avoiding lumbar extension Manual Therapy Treatment Soft Tissue Mobilization Piriformis Body Location B Piriformis Mobilization Type Myofascial Release,Strumming, Sustained Pressure Intensity/Depth Moderate Body Position Sidelying L/S and glutes Body Location B L/S and glutes Mobilization Type Myofascial Release,Rolling Intensity/Depth Moderate Body Position Sidelying PT-OP-T Assessment and Plan Start: 11/28/18 17:41 Freq: Status: Active Protocol: Document 01/03/19 11:17 HH (Rec: 01/03/19 18:03 [id number]) Physical Therapy Assessment Goals Four Impairment Core and hip weakness Short Term Goal (STG) Pt to demonstrate increased hip abduction bilaterally to 4 +/5 STG Duration 01/02/19 Agriculture Professor Goal (LTG) Pt to exhibit core/TrA MMT 4-/ 5 LTG Duration 02/20/19 Three Impairment Pt has not been able to swim for two years [facility]it[facility]iary Goal (LTG) Pt to return to [place] independently for exercise with no increased back pain LTG Duration 02/20/19 Two Impairment Pt only able to walk <one square block due to pain Short Term Goal (STG) Pt to ambulate 1/2 mile with no increased pain STG Duration 01/02/19 Penitentiary Goal (LTG) Pt to ambulate one mile with no increased pain LTG Duration 02/20/19 One Impairment Pt does not have an appropriate home exercise program Short Term Goal (STG) Pt to be independent and compliant with an appropriate HEP STG Duration 12/28/18 Assessment Summary Assessment Pt is going to [place] two weeks. Recommended pt to do pool ex and seated biking ex. Pt cont to have no c/o only in supine but increase in pain in standing/ sitting position. Educated pt today to use PPT for standing position to prevent excessive lumbar extension. Physical Therapy Plan Next Visit Focus/Plan Next Note Type Treatment Note Next Visit Plan STM, Stretching, Core strengthening, Estim as needed
--- NOTE | 2019-01-23 18:21 | PT.OTN ---
Current Diagnoses Polyneuropathy, unspecified (01/23/19) Pain in right hip (01/23/19) Pain in left hip (01/23/19) Stiffness of right hip, not elsewhere classified (01/23/19) Stiffness of left hip, not elsewhere classified (01/23/19) Spondylolisthesis, lumbar region (01/23/19) Spondylosis without myelopathy or radiculopathy, lumbosacral region (01/23/19) Other intervertebral disc displacement, lumbar region (01/23/19) Muscle weakness (generalized) (01/23/19) Physical Therapy Treatment Note PT-OP-A Visit Information Start: 11/28/18 17:41 Freq: Status: Active Protocol: Document 01/23/19 16:48 HH (Rec: 01/23/19 18:21 HH [id number]) Out-Patient Physical Therapy Visit Information Visit Information Visit Type Treatment Note Visit Note Pt present to clinic using SPC Visit Start Time 16:48 Visit Stop Time 17:34 Total Visit Minutes 46 Visit Number 9 Number of HEART SURGEON Visits 0 PT-OP-B Current Condition Start: 11/28/18 17:41 Freq: Status: Active Protocol: Document 11/28/18 09:45 DCW (Rec: 11/28/18 17:58 DCW [id number]) Current Condition History of Current Condition Onset Date Two years Current Complaints Worsening back pain History of Current Condition Pt is a 78 year old female presenting with progressive low back pain. Pt notes she has had lumbar issues off and on for 20 years, but that six years ago, she was caring for her life partner, who was going through an illness at the time, and strained her back. It has been bad since then, and specifically worsening over the last two years. Additionally, pt notes that she pulled something on Monday in her left posterior hip, which has been causing even more pain and difficulty in her getting around. Pt notes that if she is sitting or lying down, she doesn't feel too bad, but if she stays in a position too samir, she has a large increase in pain when she tries to get up and move around. Pt feels like she has substantially decreased in her level of activity tolerance and overall fitness level. Pt reports that she tries to walk one block every day, and frequently is unable to do so. Pt also has in the past swam 3x/week, and now has not been to the pool in two years. 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 The most prominent level of degenerative change is L3-L4, where there is a left lateral recess disc extrusion, with associated moderate to severe central canal narrowing. Moderate to severe bilateral neural foraminal narrowing is also seen at this level. Impression taken from Objective history of pt note from MIRACLE Arriaza on Prior Functional Status Baseline Function- ADL's Independent Baseline Function- Mobility Independent Baseline Function- Gait Walk multiple miles downtown Baseline Function- Recreation/Hobbies Swimming at [employer] pool Current Functional Impairments (Reported) Functional Limitations- Mobility/Gait Pt unable to walk more than one block Functional Limitations- Recreation/ Pt has not gone to pool in [place] past two years. PT-OP-C Subjective Start: 11/28/18 17:41 Freq: Status: Active Protocol: Document 01/23/19 16:48 HH (Rec: 01/23/19 18:21 HH [id number]) OP-PT Subjective Patient Comments Patient Comments I felt great on vacation but I had the worst back ache on the travel back and it still hurts today. I don't think I got enough exercise on vacation because my legs don't feel like they work now. PT-OP-F Manual Assessment Start: 11/28/18 17:41 Freq: Status: Active Protocol: Document 11/28/18 09:45 DCW (Rec: 11/29/18 12:49 DCW [id number]) Manual Assessments Soft Tissue Assessment Soft Tissue Mobility Assessment Severe tone and tenderness to palpation 3/4:Wincing and withdraw: left piriformis, left ITB Moderate tone and tenderness to palpation 2/4: Pain with wincing: right piriformis, right QL, right ITB PT-OP-K Range of Motion Start: 11/28/18 17:41 Freq: Status: Active Protocol: Document 11/28/18 09:45 DCW (Rec: 11/29/18 12:49 DCW [id number]) Lumbar Spine Range of Motion Lumbar Spine Active Degrees Testing Position Standing Flexion 55 Extension 12 Lateral Flexion Left 57 Lateral Flexion Right 55 ROM Limitations Pain Comments Extension limited secondary to pain PT-OP-L Special Tests Start: 11/28/18 17:41 Freq: Status: Active Protocol: Document 11/28/18 09:45 DCW (Rec: 11/29/18 12:49 DCW [id number]) Special Tests Lumbar Spine Special Tests Standing Flexion Test Results WNL Straight Leg Raise Test Results Negative Slump Test Results Positive R Manual Traction Test Results Relief of pain Compression Test Results Oh, that feels so good Hip Special Tests Lateral SI Compression Test Results Negative Anterior SI Sheer Test Results Negative Piriformis Test Results Positive B PARAS Test Results Positive left ipsilateral lateral hip pain PT-OP-M Strength Start: 11/28/18 17:41 Freq: Status: Active Protocol: Document 11/28/18 09:45 DCW (Rec: 11/29/18 12:49 DCW [id number]) Trunk Strength Trunk Manual Muscle Testing Core Stabilization Pt has difficulty properly erica TrA with verbal and tactile cues, MMT: 3-/5 Hip Strength Hip Manual Muscle Testing Right Flexion (L2) 4 Good Abduction 4 Good Adduction 4 Good External Rotation 4+ Good+ Internal Rotation 4+ Good+ Left Flexion (L2) 4- Good- Abduction 3+ Fair+ Adduction 4- Good- External Rotation 4+ Good+ Internal Rotation 4+ Good+ Knee Strength Knee Manual Muscle Testing Right Flexion (S2) 4 Good Extension (L3) 4+ Good+ Left Flexion (S2) 4+ Good+ Extension (L3) 4+ Good+ Ankle/Foot Strength Ankle and Foot Manual Muscle Testing Right Dorsiflexion (L4) 4 Good Plantarflexion (S1) 4 Good Left Dorsiflexion (L4) 4 Good Plantarflexion (S1) 4 Good PT-OP-Q Treatments Start: 11/28/18 17:41 Freq: Status: Active Protocol: Document 01/23/19 16:48 HH (Rec: 01/23/19 18:21 HH [id number]) Cardio Equipment Recumbent Stepper (Sci-Fit) Duration (Minutes) 5 Resistance 1 Seat Position 9 Therapeutic Exercises Supine Exercises jamarcus stretch Side bilateral Reps/Minutes 10 secs hold x 4 Comments with manual overpressure double knee to chest Side bilateral Reps/Minutes 10 secs hold x4 Comments manual bent knee fallout Side bilateral Equipment Used medium red ex ball Reps/Minutes x20 lower trunk rotation Supine Exercise Name LTR Side bilateral Equipment Used 45 cm T-ball Reps/Minutes 10 Comments cues on flat back Sitting Exercises reaches Side bilateral Reps/Minutes 2 min Comments flexion with reach toward opposite leg flexion/extension Side bilateral Reps/Minutes 2 min Comments reach to toes then up and back slowly marches Sitting Exercise Name seated marches Side bilateral Equipment Used [place] ball Reps/Minutes 5 min Comments cuing to limit trunk extension ball roll Side bilateral Equipment Used [place] ball Reps/Minutes 5 mins Comments diaz ball roll over; forward and side to side Standing Exercises mini hip elad Side bilateral Comments fingertip support on table Manual Therapy Treatment Joint Mobilizations lumbar distraction Grade III Body Position Hooklying Comments with mobilization belt PT-OP-T Assessment and Plan Start: 11/28/18 17:41 Freq: Status: Active Protocol: Document 01/23/19 16:48 HH (Rec: 01/23/19 18:21 HH [id number]) Physical Therapy Assessment Goals Four Impairment Core and hip weakness Short Term Goal (STG) Pt to demonstrate increased hip abduction bilaterally to 4 +/5 STG Duration 01/02/19 Phlebotomy Tech Goal (LTG) Pt to exhibit core/TrA MMT 4-/ 5 LTG Duration 02/20/19 Three Impairment Pt has not been able to swim for two years Phlebotomy Tech Goal (LTG) Pt to return to community pool independently for exercise with no increased back pain LTG Duration 02/20/19 Two Impairment Pt only able to walk <one square block due to pain Short Term Goal (STG) Pt to ambulate 1/2 mile with no increased pain STG Duration 01/02/19 Alf Goal (LTG) Pt to ambulate one mile with no increased pain LTG Duration 02/20/19 One Impairment Pt does not have an appropriate home exercise program Short Term Goal (STG) Pt to be independent and compliant with an appropriate HEP STG Duration 12/28/18 Assessment Summary Assessment Pt has exacerbated LBP after extended sitting when travelling back from vacation two days ago. Pt cont to have pain with trunk extension/ close packed position. Treatment focused today on core strengthening and gentle trunk AROM (flexion based). Physical Therapy Plan Next Visit Focus/Plan Next Note Type Treatment Note Next Visit Plan STM, Stretching, Core strengthening, Estim as needed Trunk gentle ROM for HEP Hip flexor stretch
--- NOTE | 2019-01-25 15:10 | PT.OTN ---
Current Diagnoses Polyneuropathy, unspecified (01/25/19) Pain in right hip (01/25/19) Pain in left hip (01/25/19) Stiffness of right hip, not elsewhere classified (01/25/19) Stiffness of left hip, not elsewhere classified (01/25/19) Spondylolisthesis, lumbar region (01/25/19) Spondylosis without myelopathy or radiculopathy, lumbosacral region (01/25/19) Other intervertebral disc displacement, lumbar region (01/25/19) Muscle weakness (generalized) (01/25/19) Physical Therapy Treatment Note PT-OP-A Visit Information Start: 11/28/18 17:41 Freq: Status: Active Protocol: Document 01/25/19 14:30 DCW (Rec: 01/25/19 15:08 DCW [id number]) Out-Patient Physical Therapy Visit Information Visit Information Visit Type Treatment Note Visit Start Time 14:30 Visit Stop Time 15:15 Total Visit Minutes 45 Visit Number 10 Number of YOUTH MANAGER Visits 0 PT-OP-B Current Condition Start: 11/28/18 17:41 Freq: Status: Active Protocol: Document 11/28/18 09:45 DCW (Rec: 11/28/18 17:58 DCW [id number]) Current Condition History of Current Condition Onset Date Two years Current Complaints Worsening back pain History of Current Condition Pt is a 78 year old female presenting with progressive low back pain. Pt notes she has had lumbar issues off and on for 20 years, but that six years ago, she was caring for her life partner, who was going through an illness at the time, and strained her back. It has been bad since then, and specifically worsening over the last two years. Additionally, pt notes that she pulled something on Monday in her left posterior hip, which has been causing even more pain and difficulty in her getting around. Pt notes that if she is sitting or lying down, she doesn't feel too bad, but if she stays in a position too samir, she has a large increase in pain when she tries to get up and move around. Pt feels like she has substantially decreased in her level of activity tolerance and overall fitness level. Pt reports that she tries to walk one block every day, and frequently is unable to do so. Pt also has in the past swam 3x/week, and now has not been to the pool in two years. 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 The most prominent level of degenerative change is L3-L4, where there is a left lateral recess disc extrusion, with associated moderate to severe central canal narrowing. Moderate to severe bilateral neural foraminal narrowing is also seen at this level. Impression taken from Objective history of pt note from MIRACLE Arriaza on Prior Functional Status Baseline Function- ADL's Independent Baseline Function- Mobility Independent Baseline Function- Gait Walk multiple miles downtown Baseline Function- Recreation/Hobbies Swimming at [facility] pool Current Functional Impairments (Reported) Functional Limitations- Mobility/Gait Pt unable to walk more than one block Functional Limitations- Recreation/ Pt has not gone to pool in [place] past two years. PT-OP-C Subjective Start: 11/28/18 17:41 Freq: Status: Active Protocol: Document 01/25/19 14:30 DCW (Rec: 01/25/19 15:08 DCW [id number]) OP-PT Subjective Patient Comments Patient Comments Pt reports she is incredibly sore today, she is having a very difficult time moving around. It may have something to to with the pumpkin pie I ate yesterday. I didn't just eat a slice, I ate a wedge. PT-OP-F Manual Assessment Start: 11/28/18 17:41 Freq: Status: Active Protocol: Document 11/28/18 09:45 DCW (Rec: 11/29/18 12:49 DCW [id number]) Manual Assessments Soft Tissue Assessment Soft Tissue Mobility Assessment Severe tone and tenderness to palpation 3/4:Wincing and withdraw: left piriformis, left ITB Moderate tone and tenderness to palpation 2/4: Pain with wincing: right piriformis, right QL, right ITB PT-OP-K Range of Motion Start: 11/28/18 17:41 Freq: Status: Active Protocol: Document 11/28/18 09:45 DCW (Rec: 11/29/18 12:49 DCW [id number]) Lumbar Spine Range of Motion Lumbar Spine Active Degrees Testing Position Standing Flexion 55 Extension 12 Lateral Flexion Left 57 Lateral Flexion Right 55 ROM Limitations Pain Comments Extension limited secondary to pain PT-OP-L Special Tests Start: 11/28/18 17:41 Freq: Status: Active Protocol: Document 11/28/18 09:45 DCW (Rec: 11/29/18 12:49 DCW [id number]) Special Tests Lumbar Spine Special Tests Standing Flexion Test Results WNL Straight Leg Raise Test Results Negative Slump Test Results Positive R Manual Traction Test Results Relief of pain Compression Test Results Oh, that feels so good Hip Special Tests Lateral SI Compression Test Results Negative Anterior SI Sheer Test Results Negative Piriformis Test Results Positive B PARAS Test Results Positive left ipsilateral lateral hip pain PT-OP-M Strength Start: 11/28/18 17:41 Freq: Status: Active Protocol: Document 11/28/18 09:45 DCW (Rec: 11/29/18 12:49 DCW [id number]) Trunk Strength Trunk Manual Muscle Testing Core Stabilization Pt has difficulty properly erica TrA with verbal and tactile cues, MMT: 3-/5 Hip Strength Hip Manual Muscle Testing Right Flexion (L2) 4 Good Abduction 4 Good Adduction 4 Good External Rotation 4+ Good+ Internal Rotation 4+ Good+ Left Flexion (L2) 4- Good- Abduction 3+ Fair+ Adduction 4- Good- External Rotation 4+ Good+ Internal Rotation 4+ Good+ Knee Strength Knee Manual Muscle Testing Right Flexion (S2) 4 Good Extension (L3) 4+ Good+ Left Flexion (S2) 4+ Good+ Extension (L3) 4+ Good+ Ankle/Foot Strength Ankle and Foot Manual Muscle Testing Right Dorsiflexion (L4) 4 Good Plantarflexion (S1) 4 Good Left Dorsiflexion (L4) 4 Good Plantarflexion (S1) 4 Good PT-OP-Q Treatments Start: 11/28/18 17:41 Freq: Status: Active Protocol: Document 01/25/19 14:30 DCW (Rec: 01/25/19 15:08 DCW [id number]) Manual Therapy Treatment Soft Tissue Mobilization Piriformis Body Location B Piriformis Mobilization Type Myofascial Release,Strumming, Sustained Pressure Intensity/Depth Moderate Body Position Sidelying L/S and glutes Body Location B L/S and glutes Mobilization Type Myofascial Release,Rolling Intensity/Depth Moderate Body Position Sidelying Joint Mobilizations lumbar distraction Grade III Body Position Hooklying Comments with mobilization belt PT-OP-R Modalities Start: 11/28/18 17:41 Freq: Status: Active Protocol: Document 01/25/19 14:30 DCW (Rec: 01/25/19 15:10 DCW [id number]) Hot Pack/Cold Pack Treatment Hot Pack Location Lumbar spine Patient Position Hooklying Treatment Duration (minutes) 10 Patient Tolerance Good PT-OP-T Assessment and Plan Start: 11/28/18 17:41 Freq: Status: Active Protocol: Document 01/25/19 14:30 DCW (Rec: 01/25/19 15:08 DCW [id number]) Physical Therapy Assessment Goals Four Impairment Core and hip weakness Short Term Goal (STG) Pt to demonstrate increased hip abduction bilaterally to 4 +/5 STG Duration 01/02/19 Senior Living Goal (LTG) Pt to exhibit core/TrA MMT 4-/ 5 LTG Duration 02/20/19 Three Impairment Pt has not been able to swim for two years Senior Living Goal (LTG) Pt to return to community pool independently for exercise with no increased back pain LTG Duration 02/20/19 Two Impairment Pt only able to walk <one square block due to pain Short Term Goal (STG) Pt to ambulate 1/2 mile with no increased pain STG Duration 01/02/19 Senior Living Goal (LTG) Pt to ambulate one mile with no increased pain LTG Duration 02/20/19 One Impairment Pt does not have an appropriate home exercise program Short Term Goal (STG) Pt to be independent and compliant with an appropriate HEP STG Duration 12/28/18 Assessment Summary Assessment Pt was so flared-up today with her low back that she was unable to tolerate and physical activity. Pt did pretty well with an abbreviated session consisting of manual therapy, and finished with a moist hot pack . Physical Therapy Plan Frequency and Duration Frequency of Treatment 2x/Week Duration of Treatment 12 weeks Plan of Care Start Date 11/28/18 Plan of Care End Date 02/20/19 Therapeutic Interventions Therapeutic Interventions Aquatic Therapy,Home Exercise Program,Joint Mobilizations, Manual Therapy,Self-Care/Home Management,Soft Tissue Mobilization,Therapeutic Activities,Therapeutic Exercises Modalities Cold Pack/Ice Massage,Electric Stimulation,Hot Packs, Ultrasound Next Visit Focus/Plan Next Note Type Treatment Note Next Visit Plan STM, Stretching, Core strengthening, Estim as needed Trunk gentle ROM for HEP Hip flexor stretch
--- NOTE | 2019-02-04 14:31 | PT.OTN ---
Current Diagnoses Polyneuropathy, unspecified (02/04/19) Pain in right hip (02/04/19) Pain in left hip (02/04/19) Stiffness of right hip, not elsewhere classified (02/04/19) Stiffness of left hip, not elsewhere classified (02/04/19) Spondylolisthesis, lumbar region (02/04/19) Spondylosis without myelopathy or radiculopathy, lumbosacral region (02/04/19) Other intervertebral disc displacement, lumbar region (02/04/19) Muscle weakness (generalized) (02/04/19) Physical Therapy Treatment Note PT-OP-A Visit Information Start: 11/28/18 17:41 Freq: Status: Active Protocol: Document 02/04/19 13:45 DCW (Rec: 02/04/19 14:31 DCW [id number]) Out-Patient Physical Therapy Visit Information Visit Information Visit Type Treatment Note Visit Start Time 13:45 Visit Stop Time 14:30 Total Visit Minutes 45 Visit Number 11 Number of 3D ARTIST Visits 0 Evaluation Information Evaluation Date 11/28/18 PT-OP-B Current Condition Start: 11/28/18 17:41 Freq: Status: Active Protocol: Document 11/28/18 09:45 DCW (Rec: 11/28/18 17:58 DCW [id number]) Current Condition History of Current Condition Onset Date Two years Current Complaints Worsening back pain History of Current Condition Pt is a 78 year old female presenting with progressive low back pain. Pt notes she has had lumbar issues off and on for 20 years, but that six years ago, she was caring for her life partner, who was going through an illness at the time, and strained her back. It has been bad since then, and specifically worsening over the last two years. Additionally, pt notes that she pulled something on Monday in her left posterior hip, which has been causing even more pain and difficulty in her getting around. Pt notes that if she is sitting or lying down, she doesn't feel too bad, but if she stays in a position too samir, she has a large increase in pain when she tries to get up and move around. Pt feels like she has substantially decreased in her level of activity tolerance and overall fitness level. Pt reports that she tries to walk one block every day, and frequently is unable to do so. Pt also has in the past swam 3x/week, and now has not been to the pool in two years. 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 The most prominent level of degenerative change is L3-L4, where there is a left lateral recess disc extrusion, with associated moderate to severe central canal narrowing. Moderate to severe bilateral neural foraminal narrowing is also seen at this level. Impression taken from Objective history of pt note from MIRACLE Arriaza on Prior Functional Status Baseline Function- ADL's Independent Baseline Function- Mobility Independent Baseline Function- Gait Walk multiple miles downtown Baseline Function- Recreation/Hobbies Swimming at community pool Current Functional Impairments (Reported) Functional Limitations- Mobility/Gait Pt unable to walk more than one block Functional Limitations- Recreation/ Pt has not gone to pool in [place] past two years. PT-OP-C Subjective Start: 11/28/18 17:41 Freq: Status: Active Protocol: Document 02/04/19 13:45 DCW (Rec: 02/04/19 14:31 DCW [id number]) OP-PT Subjective Patient Comments Patient Comments Pt reports she has been recovering from a cold which knocked me down for three whole days. Pt also notes that her back is still very sore, maybe even worse than what it was last time I was herre. PT-OP-F Manual Assessment Start: 11/28/18 17:41 Freq: Status: Active Protocol: Document 11/28/18 09:45 DCW (Rec: 11/29/18 12:49 DCW [id number]) Manual Assessments Soft Tissue Assessment Soft Tissue Mobility Assessment Severe tone and tenderness to palpation 3/4:Wincing and withdraw: left piriformis, left ITB Moderate tone and tenderness to palpation 2/4: Pain with wincing: right piriformis, right QL, right ITB PT-OP-K Range of Motion Start: 11/28/18 17:41 Freq: Status: Active Protocol: Document 11/28/18 09:45 DCW (Rec: 11/29/18 12:49 DCW [id number]) Lumbar Spine Range of Motion Lumbar Spine Active Degrees Testing Position Standing Flexion 55 Extension 12 Lateral Flexion Left 57 Lateral Flexion Right 55 ROM Limitations Pain Comments Extension limited secondary to pain PT-OP-L Special Tests Start: 11/28/18 17:41 Freq: Status: Active Protocol: Document 11/28/18 09:45 DCW (Rec: 11/29/18 12:49 DCW [id number]) Special Tests Lumbar Spine Special Tests Standing Flexion Test Results WNL Straight Leg Raise Test Results Negative Slump Test Results Positive R Manual Traction Test Results Relief of pain Compression Test Results Oh, that feels so good Hip Special Tests Lateral SI Compression Test Results Negative Anterior SI Sheer Test Results Negative Piriformis Test Results Positive B PARAS Test Results Positive left ipsilateral lateral hip pain PT-OP-M Strength Start: 11/28/18 17:41 Freq: Status: Active Protocol: Document 11/28/18 09:45 DCW (Rec: 11/29/18 12:49 DCW [id number]) Trunk Strength Trunk Manual Muscle Testing Core Stabilization Pt has difficulty properly erica TrA with verbal and tactile cues, MMT: 3-/5 Hip Strength Hip Manual Muscle Testing Right Flexion (L2) 4 Good Abduction 4 Good Adduction 4 Good External Rotation 4+ Good+ Internal Rotation 4+ Good+ Left Flexion (L2) 4- Good- Abduction 3+ Fair+ Adduction 4- Good- External Rotation 4+ Good+ Internal Rotation 4+ Good+ Knee Strength Knee Manual Muscle Testing Right Flexion (S2) 4 Good Extension (L3) 4+ Good+ Left Flexion (S2) 4+ Good+ Extension (L3) 4+ Good+ Ankle/Foot Strength Ankle and Foot Manual Muscle Testing Right Dorsiflexion (L4) 4 Good Plantarflexion (S1) 4 Good Left Dorsiflexion (L4) 4 Good Plantarflexion (S1) 4 Good PT-OP-Q Treatments Start: 11/28/18 17:41 Freq: Status: Active Protocol: Document 02/04/19 13:45 DCW (Rec: 02/04/19 14:31 DCW [id number]) Cardio Equipment Recumbent Elliptical (Biodex) Duration (Minutes) 5 Resistance 4 Seat Position 8 Gym Equipment Shuttle Recovery Unilateral Squats Resistance 37# Shuttle Recovery Platform Stable Bilateral Squats Resistance 75# Shuttle Recovery Platform Stable Therapeutic Exercises Supine Exercises ITB Stretch Supine Exercise Name ITB Stretch jamarcus stretch Side bilateral Reps/Minutes 10 secs hold x 4 Comments with manual overpressure double knee to chest Side bilateral Reps/Minutes 10 secs hold x4 Comments manual lower trunk rotation Supine Exercise Name LTR Side bilateral Equipment Used 45 cm T-ball Reps/Minutes 10 Comments cues on flat back Piriformis stretch Supine Exercise Name Kchw-vc-yjgntcic shoulder Side bilateral Manual Therapy Treatment Soft Tissue Mobilization Piriformis Body Location B Piriformis Mobilization Type Myofascial Release,Strumming, Sustained Pressure Intensity/Depth Moderate Body Position Sidelying L/S and glutes Body Location B L/S and glutes Mobilization Type Myofascial Release,Rolling Intensity/Depth Moderate Body Position Sidelying Joint Mobilizations lumbar distraction Grade III Body Position Hooklying Comments with mobilization belt PT-OP-R Modalities Start: 11/28/18 17:41 Freq: Status: Active Protocol: Document 02/04/19 13:45 DCW (Rec: 02/04/19 14:31 DCW [id number]) Hot Pack/Cold Pack Treatment Hot Pack Location Lumbar spine Patient Position Hooklying Treatment Duration (minutes) 10 Patient Tolerance Good PT-OP-T Assessment and Plan Start: 11/28/18 17:41 Freq: Status: Active Protocol: Document 02/04/19 13:45 DCW (Rec: 02/04/19 14:31 DCW [id number]) Physical Therapy Assessment Goals Four Impairment Core and hip weakness Short Term Goal (STG) Pt to demonstrate increased hip abduction bilaterally to 4 +/5 STG Duration 01/02/19 Cafeteria Cook Goal (LTG) Pt to exhibit core/TrA MMT 4-/ 5 LTG Duration 02/20/19 Three Impairment Pt has not been able to swim for two years Skilled Nursing Goal (LTG) Pt to return to community pool independently for exercise with no increased back pain LTG Duration 02/20/19 Two Impairment Pt only able to walk <one square block due to pain Short Term Goal (STG) Pt to ambulate 1/2 mile with no increased pain STG Duration 01/02/19 Cafeteria Cook Goal (LTG) Pt to ambulate one mile with no increased pain LTG Duration 02/20/19 One Impairment Pt does not have an appropriate home exercise program Short Term Goal (STG) Pt to be independent and compliant with an appropriate HEP STG Duration 12/28/18 Assessment Summary Assessment Pt doing better today, more mobile with less pain. Pt still recovering from her recent cold, with some coughing and fatigue. Tolerated treatment well. Physical Therapy Plan Frequency and Duration Frequency of Treatment 2x/Week Duration of Treatment 12 weeks Plan of Care Start Date 11/28/18 Plan of Care End Date 02/20/19 Therapeutic Interventions Therapeutic Interventions Aquatic Therapy,Home Exercise Program,Joint Mobilizations, Manual Therapy,Self-Care/Home Management,Soft Tissue Mobilization,Therapeutic Activities,Therapeutic Exercises Modalities Cold Pack/Ice Massage,Electric Stimulation,Hot Packs, Ultrasound Next Visit Focus/Plan Next Note Type Treatment Note Next Visit Plan STM, Stretching, Core strengthening, Estim as needed Trunk gentle ROM for HEP Hip flexor stretch
--- NOTE | 2019-02-11 11:11 | PT.OTN ---
Current Diagnoses Polyneuropathy, unspecified (02/11/19) Pain in right hip (02/11/19) Pain in left hip (02/11/19) Stiffness of right hip, not elsewhere classified (02/11/19) Stiffness of left hip, not elsewhere classified (02/11/19) Spondylolisthesis, lumbar region (02/11/19) Spondylosis without myelopathy or radiculopathy, lumbosacral region (02/11/19) Other intervertebral disc displacement, lumbar region (02/11/19) Muscle weakness (generalized) (02/11/19) Physical Therapy Treatment Note PT-OP-A Visit Information Start: 11/28/18 17:41 Freq: Status: Active Protocol: Document 02/11/19 10:30 DCW (Rec: 02/11/19 11:10 DCW [id number]) Out-Patient Physical Therapy Visit Information Visit Information Visit Type Treatment Note Visit Start Time 10:30 Visit Stop Time 11:20 Total Visit Minutes 50 Visit Number 12 Number of TRANSMISSION CALIBRATION ENGINEER Visits 0 Evaluation Information Evaluation Date 11/28/18 PT-OP-B Current Condition Start: 11/28/18 17:41 Freq: Status: Active Protocol: Document 11/28/18 09:45 DCW (Rec: 11/28/18 17:58 DCW [id number]) Current Condition History of Current Condition Onset Date Two years Current Complaints Worsening back pain History of Current Condition Pt is a 78 year old female presenting with progressive low back pain. Pt notes she has had lumbar issues off and on for 20 years, but that six years ago, she was caring for her life partner, who was going through an illness at the time, and strained her back. It has been bad since then, and specifically worsening over the last two years. Additionally, pt notes that she pulled something on Monday in her left posterior hip, which has been causing even more pain and difficulty in her getting around. Pt notes that if she is sitting or lying down, she doesn't feel too bad, but if she stays in a position too samir, she has a large increase in pain when she tries to get up and move around. Pt feels like she has substantially decreased in her level of activity tolerance and overall fitness level. Pt reports that she tries to walk one block every day, and frequently is unable to do so. Pt also has in the past swam 3x/week, and now has not been to the pool in two years. 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 The most prominent level of degenerative change is L3-L4, where there is a left lateral recess disc extrusion, with associated moderate to severe central canal narrowing. Moderate to severe bilateral neural foraminal narrowing is also seen at this level. Impression taken from Objective history of pt note from MIRAC[facility] Arriaza on Prior Functional Status Baseline Function- ADL's Independent Baseline Function- Mobility Independent Baseline Function- Gait Walk multiple miles downtown Baseline Function- Recreation/Hobbies Swimming at community pool Current Functional Impairments (Reported) Functional Limitations- Mobility/Gait Pt unable to walk more than one block Functional Limitations- Recreation/ Pt has not gone to pool in [place] past two years. PT-OP-C Subjective Start: 11/28/18 17:41 Freq: Status: Active Protocol: Document 02/11/19 10:30 DCW (Rec: 02/11/19 11:10 DCW [id number]) OP-PT Subjective Patient Comments Patient Comments I'm in the most pain I've ever been in. Pt notes she is having increased pain in her right low back, and has been having eye difficulties. PT-OP-F Manual Assessment Start: 11/28/18 17:41 Freq: Status: Active Protocol: Document 11/28/18 09:45 DCW (Rec: 11/29/18 12:49 DCW [id number]) Manual Assessments Soft Tissue Assessment Soft Tissue Mobility Assessment Severe tone and tenderness to palpation 3/4:Wincing and withdraw: left piriformis, left ITB Moderate tone and tenderness to palpation 2/4: Pain with wincing: right piriformis, right QL, right ITB PT-OP-K Range of Motion Start: 11/28/18 17:41 Freq: Status: Active Protocol: Document 11/28/18 09:45 DCW (Rec: 11/29/18 12:49 DCW [id number]) Lumbar Spine Range of Motion Lumbar Spine Active Degrees Testing Position Standing Flexion 55 Extension 12 Lateral Flexion Left 57 Lateral Flexion Right 55 ROM Limitations Pain Comments Extension limited secondary to pain PT-OP-L Special Tests Start: 11/28/18 17:41 Freq: Status: Active Protocol: Document 11/28/18 09:45 DCW (Rec: 11/29/18 12:49 DCW [id number]) Special Tests Lumbar Spine Special Tests Standing Flexion Test Results WNL Straight Leg Raise Test Results Negative Slump Test Results Positive R Manual Traction Test Results Relief of pain Compression Test Results Oh, that feels so good Hip Special Tests Lateral SI Compression Test Results Negative Anterior SI Sheer Test Results Negative Piriformis Test Results Positive B PARAS Test Results Positive left ipsilateral lateral hip pain PT-OP-M Strength Start: 11/28/18 17:41 Freq: Status: Active Protocol: Document 11/28/18 09:45 DCW (Rec: 11/29/18 12:49 DCW [id number]) Trunk Strength Trunk Manual Muscle Testing Core Stabilization Pt has difficulty properly erica TrA with verbal and tactile cues, MMT: 3-/5 Hip Strength Hip Manual Muscle Testing Right Flexion (L2) 4 Good Abduction 4 Good Adduction 4 Good External Rotation 4+ Good+ Internal Rotation 4+ Good+ Left Flexion (L2) 4- Good- Abduction 3+ Fair+ Adduction 4- Good- External Rotation 4+ Good+ Internal Rotation 4+ Good+ Knee Strength Knee Manual Muscle Testing Right Flexion (S2) 4 Good Extension (L3) 4+ Good+ Left Flexion (S2) 4+ Good+ Extension (L3) 4+ Good+ Ankle/Foot Strength Ankle and Foot Manual Muscle Testing Right Dorsiflexion (L4) 4 Good Plantarflexion (S1) 4 Good Left Dorsiflexion (L4) 4 Good Plantarflexion (S1) 4 Good PT-OP-Q Treatments Start: 11/28/18 17:41 Freq: Status: Active Protocol: Document 02/11/19 10:30 DCW (Rec: 02/11/19 11:10 DCW [id number]) Cardio Equipment Recumbent Elliptical (Biodex) Duration (Minutes) 5 Resistance 4 Seat Position 8 Gym Equipment Shuttle Recovery Unilateral Squats Resistance 37# Shuttle Recovery Platform Stable Bilateral Squats Resistance 75# Shuttle Recovery Platform Stable Therapeutic Exercises Supine Exercises ITB Stretch Supine Exercise Name ITB Stretch jamarcus stretch Side bilateral Reps/Minutes 10 secs hold x 4 Comments with manual overpressure double knee to chest Side bilateral Reps/Minutes 10 secs hold x4 Comments manual lower trunk rotation Supine Exercise Name LTR Side bilateral Equipment Used 45 cm T-ball Reps/Minutes 10 Comments cues on flat back Piriformis stretch Supine Exercise Name Suwz-os-sdweyqik shoulder Side bilateral Other Exercises Resisted Ambulation Other Exercise Name Side-stepping Resistance Yellow Manual Therapy Treatment Soft Tissue Mobilization Piriformis Body Location B Piriformis Mobilization Type Myofascial Release,Strumming, Sustained Pressure Intensity/Depth Moderate Body Position Sidelying L/S and glutes Body Location B L/S and glutes Mobilization Type Myofascial Release,Rolling Intensity/Depth Moderate Body Position Sidelying PT-OP-R Modalities Start: 11/28/18 17:41 Freq: Status: Active Protocol: Document 02/11/19 10:30 DCW (Rec: 02/11/19 11:10 DCW [id number]) Hot Pack/Cold Pack Treatment Hot Pack Location Lumbar spine Patient Position Hooklying Treatment Duration (minutes) 10 Patient Tolerance Good PT-OP-T Assessment and Plan Start: 11/28/18 17:41 Freq: Status: Active Protocol: Document 02/11/19 10:30 DCW (Rec: 02/11/19 11:10 DCW [id number]) Physical Therapy Assessment Goals Four Impairment Core and hip weakness Short Term Goal (STG) Pt to demonstrate increased hip abduction bilaterally to 4 +/5 STG Duration 01/02/19 Prison Goal (LTG) Pt to exhibit core/TrA MMT 4-/ 5 LTG Duration 02/20/19 Three Impairment Pt has not been able to swim for two years Prison Goal (LTG) Pt to return to community pool independently for exercise with no increased back pain LTG Duration 02/20/19 Two Impairment Pt only able to walk <one square block due to pain Short Term Goal (STG) Pt to ambulate 1/2 mile with no increased pain STG Duration 01/02/19 Prison Goal (LTG) Pt to ambulate one mile with no increased pain LTG Duration 02/20/19 One Impairment Pt does not have an appropriate home exercise program Short Term Goal (STG) Pt to be independent and compliant with an appropriate HEP STG Duration 12/28/18 Assessment Summary Assessment Pt at baseline has right ptosis, however appears increased today. CVA screen performed, pt smooth pursuit WNL, able to smile and puff cheeks out symmetrically, no unilateral weakness. Pt has a history of R eye surgery x5, pt planning to call opthamologist following her appointment today. Despite pt' s complaints of increased pain , she was able to tolerate full session of therapy with no modifications Physical Therapy Plan Frequency and Duration Frequency of Treatment 2x/Week Duration of Treatment 12 weeks Plan of Care Start Date 11/28/18 Plan of Care End Date 02/20/19 Therapeutic Interventions Therapeutic Interventions Aquatic Therapy,Home Exercise Program,Joint Mobilizations, Manual Therapy,Self-Care/Home Management,Soft Tissue Mobilization,Therapeutic Activities,Therapeutic Exercises Modalities Cold Pack/Ice Massage,Electric Stimulation,Hot Packs, Ultrasound Next Visit Focus/Plan Next Note Type Treatment Note Next Visit Plan STM, Stretching, Core strengthening, Estim as needed Trunk gentle ROM for HEP Hip flexor stretch
--- NOTE | 2019-02-13 13:52 | PT.OTN ---
Current Diagnoses Polyneuropathy, unspecified (02/13/19) Pain in right hip (02/13/19) Pain in left hip (02/13/19) Stiffness of right hip, not elsewhere classified (02/13/19) Stiffness of left hip, not elsewhere classified (02/13/19) Spondylolisthesis, lumbar region (02/13/19) Spondylosis without myelopathy or radiculopathy, lumbosacral region (02/13/19) Other intervertebral disc displacement, lumbar region (02/13/19) Muscle weakness (generalized) (02/13/19) Physical Therapy Treatment Note PT-OP-A Visit Information Start: 11/28/18 17:41 Freq: Status: Active Protocol: Document 02/13/19 13:02 HH (Rec: 02/13/19 13:51 HH [id number]) Out-Patient Physical Therapy Visit Information Visit Information Visit Type Treatment Note Visit Start Time 13:02 Visit Number 13 Number of INTERIOR ASSEMBLIES DEVELOPER PROVER Visits 0 Evaluation Information Evaluation Date 11/28/18 PT-OP-B Current Condition Start: 11/28/18 17:41 Freq: Status: Active Protocol: Document 11/28/18 09:45 DCW (Rec: 11/28/18 17:58 DCW [id number]) Current Condition History of Current Condition Onset Date Two years Current Complaints Worsening back pain History of Current Condition Pt is a 78 year old female presenting with progressive low back pain. Pt notes she has had lumbar issues off and on for 20 years, but that six years ago, she was caring for her life partner, who was going through an illness at the time, and strained her back. It has been bad since then, and specifically worsening over the last two years. Additionally, pt notes that she pulled something on Monday in her left posterior hip, which has been causing even more pain and difficulty in her getting around. Pt notes that if she is sitting or lying down, she doesn't feel too bad, but if she stays in a position too samir, she has a large increase in pain when she tries to get up and move around. Pt feels like she has substantially decreased in her level of activity tolerance and overall fitness level. Pt reports that she tries to walk one block every day, and frequently is unable to do so. Pt also has in the past swam 3x/week, and now has not been to the pool in two years. Prior Treatments and Tests Lumbar MRI: IMPRESSION: Multiple levels of lumbar spine degenerative change are seen, which have progressed compared to 2009. The most prominent level of degenerative change is L3-L4, where there is a left lateral recess disc extrusion, with associated moderate to severe central canal narrowing. Moderate to severe bilateral neural foraminal narrowing is also seen at this level. Impression taken from Objective history of pt note from MIRACLE Arriaza on Prior Functional Status Baseline Function- ADL's Independent Baseline Function- Mobility Independent Baseline Function- Gait Walk multiple miles downtown Baseline Function- Recreation/Hobbies Swimming at community pool Current Functional Impairments (Reported) Functional Limitations- Mobility/Gait Pt unable to walk more than one block Functional Limitations- Recreation/ Pt has not gone to pool in [place] past two years. PT-OP-C Subjective Start: 11/28/18 17:41 Freq: Status: Active Protocol: Document 02/13/19 13:02 HH (Rec: 02/13/19 13:51 HH [id number]) OP-PT Subjective Patient Comments Patient Comments I still feel so tired from my cold. My back is really bothering me and I don't think I've been getting any better PT-OP-F Manual Assessment Start: 11/28/18 17:41 Freq: Status: Active Protocol: Document 11/28/18 09:45 DCW (Rec: 11/29/18 12:49 DCW [id number]) Manual Assessments Soft Tissue Assessment Soft Tissue Mobility Assessment Severe tone and tenderness to palpation 3/4:Wincing and withdraw: left piriformis, left ITB Moderate tone and tenderness to palpation 2/4: Pain with wincing: right piriformis, right QL, right ITB PT-OP-K Range of Motion Start: 11/28/18 17:41 Freq: Status: Active Protocol: Document 11/28/18 09:45 DCW (Rec: 11/29/18 12:49 DCW [id number]) Lumbar Spine Range of Motion Lumbar Spine Active Degrees Testing Position Standing Flexion 55 Extension 12 Lateral Flexion Left 57 Lateral Flexion Right 55 ROM Limitations Pain Comments Extension limited secondary to pain PT-OP-L Special Tests Start: 11/28/18 17:41 Freq: Status: Active Protocol: Document 11/28/18 09:45 DCW (Rec: 11/29/18 12:49 DCW [id number]) Special Tests Lumbar Spine Special Tests Standing Flexion Test Results WNL Straight Leg Raise Test Results Negative Slump Test Results Positive R Manual Traction Test Results Relief of pain Compression Test Results Oh, that feels so good Hip Special Tests Lateral SI Compression Test Results Negative Anterior SI Sheer Test Results Negative Piriformis Test Results Positive B PARAS Test Results Positive left ipsilateral lateral hip pain PT-OP-M Strength Start: 11/28/18 17:41 Freq: Status: Active Protocol: Document 11/28/18 09:45 DCW (Rec: 11/29/18 12:49 DCW [id number]) Trunk Strength Trunk Manual Muscle Testing Core Stabilization Pt has difficulty properly erica TrA with verbal and tactile cues, MMT: 3-/5 Hip Strength Hip Manual Muscle Testing Right Flexion (L2) 4 Good Abduction 4 Good Adduction 4 Good External Rotation 4+ Good+ Internal Rotation 4+ Good+ Left Flexion (L2) 4- Good- Abduction 3+ Fair+ Adduction 4- Good- External Rotation 4+ Good+ Internal Rotation 4+ Good+ Knee Strength Knee Manual Muscle Testing Right Flexion (S2) 4 Good Extension (L3) 4+ Good+ Left Flexion (S2) 4+ Good+ Extension (L3) 4+ Good+ Ankle/Foot Strength Ankle and Foot Manual Muscle Testing Right Dorsiflexion (L4) 4 Good Plantarflexion (S1) 4 Good Left Dorsiflexion (L4) 4 Good Plantarflexion (S1) 4 Good PT-OP-Q Treatments Start: 11/28/18 17:41 Freq: Status: Active Protocol: Document 02/13/19 13:02 (Rec: 02/13/19 13:51 [id number]) Cardio Equipment Recumbent Elliptical (Biodex) Duration (Minutes) 5 Resistance 4 Seat Position 8 Therapeutic Exercises Supine Exercises reverse curls Side bilateral Equipment Used with red japanese ball Reps/Minutes 20 lower trunk rotation Supine Exercise Name LTR Side bilateral Reps/Minutes 20 Comments cues on flat back bridges Side bilateral Reps/Minutes 10 Comments mini bridges Piriformis stretch Supine Exercise Name [id number]-fmcmexjg shoulder Side bilateral Comments with UE assist Sitting Exercises pelvic tilts Side bilateral Reps/Minutes 5 mins Other Exercises child's pose Side bilateral Comments active movement into/out of pose without extended hold cat/camel Side bilateral Comments quadruped; with mechanoreceptor stimulation with tapping over low back Manual Therapy Treatment Joint Mobilizations B hip distraction Grade III Body Position Supine Comments with hip mini circumduction lumbar distraction Grade III Body Position Hooklying Comments with mobilization belt PT-OP-R Modalities Start: 11/28/18 17:41 Freq: Status: Active Protocol: Document 02/13/19 13:02 (Rec: 02/13/19 13:51 [id number]) Hot Pack/Cold Pack Treatment Hot Pack Location Lumbar spine Patient Position Hooklying Treatment Duration (minutes) 10 Patient Tolerance Good PT-OP-T Assessment and Plan Start: 11/28/18 17:41 Freq: Status: Active Protocol: Document 02/13/19 13:02 (Rec: 02/13/19 13:51 [id number]) Physical Therapy Assessment Goals Four Impairment Core and hip weakness Short Term Goal (STG) Pt to demonstrate increased hip abduction bilaterally to 4 +/5 STG Duration 01/02/19 [facility] Goal (LTG) Pt to exhibit core/TrA MMT 4-/ 5 LTG Duration 02/20/19 Three Impairment Pt has not been able to swim for two years [facility] Goal (LTG) Pt to return to community pool independently for exercise with no increased back pain LTG Duration 02/20/19 Two Impairment Pt only able to walk <one square block due to pain Short Term Goal (STG) Pt to ambulate 1/2 mile with no increased pain STG Duration 01/02/19 Ammunition Specialist Goal (LTG) Pt to ambulate one mile with no increased pain LTG Duration 02/20/19 One Impairment Pt does not have an appropriate home exercise program Short Term Goal (STG) Pt to be independent and compliant with an appropriate HEP STG Duration 12/28/18 Assessment Summary Assessment Pt cont to demonstrate pain with L/S extension but improved with multiple repetitions of segmental lumbar movement, and with lumbar/ hip distraction. Progressed lumbar movement and core strengthening exercises and pt tolerated well. Added cat/camel and seated pelvic tilts to HEP to improve tolerance for spinal movements . Physical Therapy Plan Next Visit Focus/Plan Next Note Type Treatment Note Next Visit Plan STM, Stretching, Core strengthening, Estim as needed Trunk gentle ROM for HEP Segmental spinal movement (cat /cow, child's pose) Hip flexor stretch
--- NOTE | 2019-02-13 13:52 | PT.OTN ---
Current Diagnoses Polyneuropathy, unspecified (02/13/19) Pain in right hip (02/13/19) Pain in left hip (02/13/19) Stiffness of right hip, not elsewhere classified (02/13/19) Stiffness of left hip, not elsewhere classified (02/13/19) Spondylolisthesis, lumbar region (02/13/19) Spondylosis without myelopathy or radiculopathy, lumbosacral region (02/13/19) Other intervertebral disc displacement, lumbar region (02/13/19) Muscle weakness (generalized) (02/13/19) Physical Therapy Treatment Note PT-OP-A Visit Information Start: 11/28/18 17:41 Freq: Status: Active Protocol: Document 02/13/19 13:02 HH (Rec: 02/13/19 13:51 HH [id number]) Out-Patient Physical Therapy Visit Information Visit Information Visit Type Treatment Note Visit Start Time 13:02 Visit Number 13 Number of ELIGIBILITY MANAGER Visits 0 Evaluation Information Evaluation Date 11/28/18 PT-OP-B Current Condition Start: 11/28/18 17:41 Freq: Status: Active Protocol: Document 11/28/18 09:45 DCW (Rec: 11/28/18 17:58 DCW [id number]) Current Condition History of Current Condition Onset Date Two years Current Complaints Worsening back pain History of Current Condition Pt is a 78 year old female presenting with progressive low back pain. Pt notes she has had lumbar issues off and on for 20 years, but that six years ago, she was caring for her life partner, who was going through an illness at the time, and strained her back. It has been bad since then, and specifically worsening over the last two years. Additionally, pt notes that she pulled something on Monday in her left posterior hip, which has been causing even more pain and difficulty in her getting around. Pt notes that if she is sitting or lying down, she doesn't feel too bad, but if she stays in a position too samir, she has a large increase in pain when she tries to get up and move around. Pt feels like she has substantially decreased in her level of activity tolerance and overall fitness level. Pt reports that she tries to walk one block every day, and frequently is unable to do so. Pt also has in the past swam 3x/week, and now has not been to the pool in two years. Prior Treatments and Tests Lumbar MRI: IMPRESSION: Multiple levels of lumbar spine degenerative change are seen, which have progressed compared to 2009. The most prominent level of degenerative change is L3-L4, where there is a left lateral recess disc extrusion, with associated moderate to severe central canal narrowing. Moderate to severe bilateral neural foraminal narrowing is also seen at this level. Impression taken from Objective history of pt note from MIRACLE Arriaza on Prior Functional Status Baseline Function- ADL's Independent Baseline Function- Mobility Independent Baseline Function- Gait Walk multiple miles downtown Baseline Function- Recreation/Hobbies Swimming at community pool Current Functional Impairments (Reported) Functional Limitations- Mobility/Gait Pt unable to walk more than one block Functional Limitations- Recreation/ Pt has not gone to pool in [place] past two years. PT-OP-C Subjective Start: 11/28/18 17:41 Freq: Status: Active Protocol: Document 02/13/19 13:02 HH (Rec: 02/13/19 13:51 HH [id number]) OP-PT Subjective Patient Comments Patient Comments I still feel so tired from my cold. My back is really bothering me and I don't think I've been getting any better PT-OP-F Manual Assessment Start: 11/28/18 17:41 Freq: Status: Active Protocol: Document 11/28/18 09:45 DCW (Rec: 11/29/18 12:49 DCW [id number]) Manual Assessments Soft Tissue Assessment Soft Tissue Mobility Assessment Severe tone and tenderness to palpation 3/4:Wincing and withdraw: left piriformis, left ITB Moderate tone and tenderness to palpation 2/4: Pain with wincing: right piriformis, right QL, right ITB PT-OP-K Range of Motion Start: 11/28/18 17:41 Freq: Status: Active Protocol: Document 11/28/18 09:45 DCW (Rec: 11/29/18 12:49 DCW [id number]) Lumbar Spine Range of Motion Lumbar Spine Active Degrees Testing Position Standing Flexion 55 Extension 12 Lateral Flexion Left 57 Lateral Flexion Right 55 ROM Limitations Pain Comments Extension limited secondary to pain PT-OP-L Special Tests Start: 11/28/18 17:41 Freq: Status: Active Protocol: Document 11/28/18 09:45 DCW (Rec: 11/29/18 12:49 DCW [id number]) Special Tests Lumbar Spine Special Tests Standing Flexion Test Results WNL Straight Leg Raise Test Results Negative Slump Test Results Positive R Manual Traction Test Results Relief of pain Compression Test Results Oh, that feels so good Hip Special Tests Lateral SI Compression Test Results Negative Anterior SI Sheer Test Results Negative Piriformis Test Results Positive B PARAS Test Results Positive left ipsilateral lateral hip pain PT-OP-M Strength Start: 11/28/18 17:41 Freq: Status: Active Protocol: Document 11/28/18 09:45 DCW (Rec: 11/29/18 12:49 DCW [id number]) Trunk Strength Trunk Manual Muscle Testing Core Stabilization Pt has difficulty properly erica TrA with verbal and tactile cues, MMT: 3-/5 Hip Strength Hip Manual Muscle Testing Right Flexion (L2) 4 Good Abduction 4 Good Adduction 4 Good External Rotation 4+ Good+ Internal Rotation 4+ Good+ Left Flexion (L2) 4- Good- Abduction 3+ Fair+ Adduction 4- Good- External Rotation 4+ Good+ Internal Rotation 4+ Good+ Knee Strength Knee Manual Muscle Testing Right Flexion (S2) 4 Good Extension (L3) 4+ Good+ Left Flexion (S2) 4+ Good+ Extension (L3) 4+ Good+ Ankle/Foot Strength Ankle and Foot Manual Muscle Testing Right Dorsiflexion (L4) 4 Good Plantarflexion (S1) 4 Good Left Dorsiflexion (L4) 4 Good Plantarflexion (S1) 4 Good PT-OP-Q Treatments Start: 11/28/18 17:41 Freq: Status: Active Protocol: Document 02/13/19 13:02 (Rec: 02/13/19 13:51 [id number]) Cardio Equipment Recumbent Elliptical (Biodex) Duration (Minutes) 5 Resistance 4 Seat Position 8 Therapeutic Exercises Supine Exercises reverse curls Side bilateral Equipment Used with red central african ball Reps/Minutes 20 lower trunk rotation Supine Exercise Name LTR Side bilateral Reps/Minutes 20 Comments cues on flat back bridges Side bilateral Reps/Minutes 10 Comments mini bridges Piriformis stretch Supine Exercise Name Mdss-ub-xhzpolds shoulder Side bilateral Comments with UE assist Sitting Exercises pelvic tilts Side bilateral Reps/Minutes 5 mins Other Exercises child's pose Side bilateral Comments active movement into/out of pose without extended hold cat/camel Side bilateral Comments quadruped; with mechanoreceptor stimulation with tapping over low back Manual Therapy Treatment Joint Mobilizations B hip distraction Grade III Body Position Supine Comments with hip mini circumduction lumbar distraction Grade III Body Position Hooklying Comments with mobilization belt PT-OP-R Modalities Start: 11/28/18 17:41 Freq: Status: Active Protocol: Document 02/13/19 13:02 (Rec: 02/13/19 13:51 [id number]) Hot Pack/Cold Pack Treatment Hot Pack Location Lumbar spine Patient Position Hooklying Treatment Duration (minutes) 10 Patient Tolerance Good PT-OP-T Assessment and Plan Start: 11/28/18 17:41 Freq: Status: Active Protocol: Document 02/13/19 13:02 (Rec: 02/13/19 13:51 [id number]) Physical Therapy Assessment Goals Four Impairment Core and hip weakness Short Term Goal (STG) Pt to demonstrate increased hip abduction bilaterally to 4 +/5 STG Duration 01/02/19 Detention Goal (LTG) Pt to exhibit core/TrA MMT 4-/ 5 LTG Duration 02/20/19 Three Impairment Pt has not been able to swim for two years Detention Goal (LTG) Pt to return to community pool independently for exercise with no increased back pain LTG Duration 02/20/19 Two Impairment Pt only able to walk <one square block due to pain Short Term Goal (STG) Pt to ambulate 1/2 mile with no increased pain STG Duration 01/02/19 Retail Warehouse Supervisor Goal (LTG) Pt to ambulate one mile with no increased pain LTG Duration 02/20/19 One Impairment Pt does not have an appropriate home exercise program Short Term Goal (STG) Pt to be independent and compliant with an appropriate HEP STG Duration 12/28/18 Assessment Summary Assessment Pt cont to demonstrate pain with L/S extension but improved with multiple repetitions of segmental lumbar movement, and with lumbar/ hip distraction. Progressed lumbar movement and core strengthening exercises and pt tolerated well. Added cat/camel and seated pelvic tilts to HEP to improve tolerance for spinal movements . Physical Therapy Plan Next Visit Focus/Plan Next Note Type Treatment Note Next Visit Plan STM, Stretching, Core strengthening, Estim as needed Trunk gentle ROM for HEP Segmental spinal movement (cat /cow, child's pose) Hip flexor stretch
--- NOTE | 2019-02-19 10:56 | PT-IP ANOTE ---
Called pt this am and she reported she called in yesterday to cancel due to worsening back pain over the past few weeks. Pt also stated that she has been taking Gabapentin 200mg twice a day as MD prescribed, but She reports increased confusion and disorientation. Pt is going to see her MD for pain management shot today. Will reassess pt's symptoms and update POC next visit (02/21)
--- NOTE | 2019-02-21 11:14 | PT.OTN ---
Current Diagnoses Polyneuropathy, unspecified (02/21/19) Pain in right hip (02/21/19) Pain in left hip (02/21/19) Stiffness of right hip, not elsewhere classified (02/21/19) Stiffness of left hip, not elsewhere classified (02/21/19) Spondylolisthesis, lumbar region (02/21/19) Spondylosis without myelopathy or radiculopathy, lumbosacral region (02/21/19) Other intervertebral disc displacement, lumbar region (02/21/19) Muscle weakness (generalized) (02/21/19) Physical Therapy Treatment Note PT-OP-A Visit Information Start: 11/28/18 17:41 Freq: Status: Active Protocol: Document 02/21/19 10:30 DCW (Rec: 02/21/19 11:14 DCW [id number]) Out-Patient Physical Therapy Visit Information Visit Information Visit Type Treatment Note Visit Start Time 10:30 Visit Stop Time 11:15 Total Visit Minutes 45 Visit Number 14 Number of DENTAL OFFICE COORDINATOR Visits 0 Evaluation Information Evaluation Date 11/28/18 PT-OP-B Current Condition Start: 11/28/18 17:41 Freq: Status: Active Protocol: Document 11/28/18 09:45 DCW (Rec: 11/28/18 17:58 DCW [id number]) Current Condition History of Current Condition Onset Date Two years Current Complaints Worsening back pain History of Current Condition Pt is a 78 year old female presenting with progressive low back pain. Pt notes she has had lumbar issues off and on for 20 years, but that six years ago, she was caring for her life partner, who was going through an illness at the time, and strained her back. It has been bad since then, and specifically worsening over the last two years. Additionally, pt notes that she pulled something on Monday in her left posterior hip, which has been causing even more pain and difficulty in her getting around. Pt notes that if she is sitting or lying down, she doesn't feel too bad, but if she stays in a position too samir, she has a large increase in pain when she tries to get up and move around. Pt feels like she has substantially decreased in her level of activity tolerance and overall fitness level. Pt reports that she tries to walk one block every day, and frequently is unable to do so. Pt also has in the past swam 3x/week, and now has not been to the pool in two years. 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 The most prominent level of degenerative change is L3-L4, where there is a left lateral recess disc extrusion, with associated moderate to severe central canal narrowing. Moderate to severe bilateral neural foraminal narrowing is also seen at this level. Impression taken from Objective history of pt note from MIRACLE Arriaza on Prior Functional Status Baseline Function- ADL's Independent Baseline Function- Mobility Independent Baseline Function- Gait Walk multiple miles downtown Baseline Function- Recreation/Hobbies Swimming at community pool Current Functional Impairments (Reported) Functional Limitations- Mobility/Gait Pt unable to walk more than one block Functional Limitations- Recreation/ Pt has not gone to pool in [place]obbies past two years. PT-OP-C Subjective Start: 11/28/18 17:41 Freq: Status: Active Protocol: Document 02/21/19 10:30 DCW (Rec: 02/21/19 11:14 DCW [id number]) OP-PT Subjective Patient Comments Patient Comments I had my injection Pooja, so I probably shouldn't do too much today. Pt kinseyos notes that I can walk pretty much pain-free, which is a big improvement from a few weeks ago. PT-OP-F Manual Assessment Start: 11/28/18 17:41 Freq: Status: Active Protocol: Document 02/21/19 10:30 DCW (Rec: 02/21/19 10:53 DCW [id number]) Manual Assessments Soft Tissue Assessment Soft Tissue Mobility Assessment Moderate tone and tenderness to palpation 2/4:Pain with wincing: bilateral piriformis Mild tone and tenderness to palpation 1/4: Complaint of pain: right QL, bilateral ITB PT-OP-K Range of Motion Start: 11/28/18 17:41 Freq: Status: Active Protocol: Document 02/21/19 10:30 DCW (Rec: 02/21/19 10:53 DCW [id number]) Lumbar Spine Range of Motion Lumbar Spine Active Degrees Testing Position Standing Flexion 62 Extension 13 Lateral Flexion Left 54 Lateral Flexion Right 53 ROM Limitations Pain Comments Extension limited secondary to pain PT-OP-L Special Tests Start: 11/28/18 17:41 Freq: Status: Active Protocol: Document 02/21/19 10:30 DCW (Rec: 02/21/19 10:53 DCW [id number]) Special Tests Lumbar Spine Special Tests Standing Flexion Test Results WNL Straight Leg Raise Test Results Negative Slump Test Results Negative Manual Traction Test Results Relief of pain Compression Test Results You can do that another 10 minutes Hip Special Tests Piriformis Test Results B tenderness at Piriformis PARAS Test Results Positive left ipsilateral lateral hip pain PT-OP-M Strength Start: 11/28/18 17:41 Freq: Status: Active Protocol: Document 02/21/19 10:30 DCW (Rec: 02/21/19 10:53 DCW [id number]) Trunk Strength Trunk Manual Muscle Testing Core Stabilization Pt able to properly contract TrA with verbal cues, unable to told more than 10 seconds MMT: 3+/5 Hip Strength Hip Manual Muscle Testing Right Flexion (L2) 4 Good Abduction 4 Good Adduction 4 Good External Rotation 4+ Good+ Internal Rotation 4+ Good+ Left Flexion (L2) 4 Good Abduction 3+ Fair+ Adduction 4- Good- External Rotation 4+ Good+ Internal Rotation 4+ Good+ Knee Strength Knee Manual Muscle Testing Right Flexion (S2) 4+ Good+ Extension (L3) 5 Normal Left Flexion (S2) 5 Normal Extension (L3) 5 Normal Ankle/Foot Strength Ankle and Foot Manual Muscle Testing Right Dorsiflexion (L4) 4 Good Plantarflexion (S1) 4 Good Left Dorsiflexion (L4) 4 Good Plantarflexion (S1) 4 Good PT-OP-Q Treatments Start: 11/28/18 17:41 Freq: Status: Active Protocol: Document 02/21/19 10:30 DCW (Rec: 02/21/19 11:14 DCW [id number]) Cardio Equipment Recumbent Elliptical (Biodex) Duration (Minutes) 5 Resistance 4 Seat Position 8 Therapeutic Exercises Supine Exercises lower trunk rotation Supine Exercise Name LTR Side bilateral Reps/Minutes 20 Comments cues on flat back bridges Side bilateral Reps/Minutes 10 Comments mini bridges Manual Therapy Treatment Other Other Manual Treatments Testing PT-OP-R Modalities Start: 11/28/18 17:41 Freq: Status: Active Protocol: Document 02/13/19 13:02 HH (Rec: 02/13/19 13:51 HH [id number]) Hot Pack/Cold Pack Treatment Hot Pack Location Lumbar spine Patient Position Hooklying Treatment Duration (minutes) 10 Patient Tolerance Good PT-OP-T Assessment and Plan Start: 11/28/18 17:41 Freq: Status: Active Protocol: Document 02/21/19 10:30 DCW (Rec: 02/21/19 11:14 DCW [id number]) Physical Therapy Assessment Goals Four Impairment Core and hip weakness Short Term Goal (STG) Pt to demonstrate increased hip abduction bilaterally to 4 +/5 STG Duration 03/24/19 Vegetable Preparer Goal (LTG) Goal Met:Pt to exhibit core/ TrA MMT 4-/5 Advance to 4+/5 LTG Duration 04/24/19 Three Impairment Pt has not been able to swim for two years Penitentiary Goal (LTG) Pt to return to community pool independently for exercise with no increased back pain 02/21/19:Pt still limited due to open wounds on arms LTG Duration 04/24/19 Two Impairment Pt only able to walk <one square block due to pain Short Term Goal (STG) Pt to ambulate 1/2 mile with no increased pain STG Duration 03/24/19 - Improving Penitentiary Goal (LTG) Pt to ambulate one mile with no increased pain LTG Duration 04/24/19 - Improving One Impairment Pt does not have an appropriate home exercise program Short Term Goal (STG) Pt to be independent and compliant with an appropriate HEP STG Duration Met Assessment Summary Assessment Pt much improved following her injection compared to her recent decline in function, she is near, but slightly better than, her original level of function at her initial evaluation. Pt very interested in continuing therapy, and feels much more optimistic about improving with therapy now that her pain is lowered following her injection. Continue with ongoing skilled therapy to help improve lumbar function and decrease pain. Physical Therapy Plan Frequency and Duration Frequency of Treatment 2x/Week Duration of Treatment 12 weeks Plan of Care Start Date 02/21/19 Plan of Care End Date 05/16/19 Therapeutic Interventions Therapeutic Interventions Aquatic Therapy,Home Exercise Program,Joint Mobilizations, Manual Therapy,Self-Care/Home Management,Soft Tissue Mobilization,Therapeutic Activities,Therapeutic Exercises Modalities Cold Pack/Ice Massage,Electric Stimulation,Hot Packs, Ultrasound Next Visit Focus/Plan Next Note Type Treatment Note Next Visit Plan STM, Stretching, Core strengthening, Estim as needed Trunk gentle ROM for HEP Hip flexor stretch
--- NOTE | 2019-02-21 11:15 | PT.OPPOC ---
Current Diagnoses Polyneuropathy, unspecified (02/21/19) Pain in right hip (02/21/19) Pain in left hip (02/21/19) Stiffness of right hip, not elsewhere classified (02/21/19) Stiffness of left hip, not elsewhere classified (02/21/19) Spondylolisthesis, lumbar region (02/21/19) Spondylosis without myelopathy or radiculopathy, lumbosacral region (02/21/19) Other intervertebral disc displacement, lumbar region (02/21/19) Muscle weakness (generalized) (02/21/19) Visit Care Team Role Provider Type Jorge L Dietz MD Primary Care Provider Physician Specialty: Family Practice Address: [address] [place] [address], [facility] [place], [address] Email: [email or web address] MIRACLE Arriaza Attending Provider Advanced Operations Vocational Instructor Specialty: Pain Management Address: [address] [place] [address], [phone] Email: [email or web address] Plan Of Care PT-OP-T Assessment and Plan Start: 11/28/18 17:41 Freq: Status: Active Protocol: Document 02/21/19 10:30 DCW (Rec: 02/21/19 11:14 DCW [id number]) Physical Therapy Assessment Goals Four Impairment Core and hip weakness Short Term Goal (STG) Pt to demonstrate increased hip abduction bilaterally to 4 +/5 STG Duration 03/24/19 Senior Care Goal (LTG) Goal Met:Pt to exhibit core/ TrA MMT 4-/5 Advance to 4+/5 LTG Duration 04/24/19 Three Impairment Pt has not been able to swim for two years Sole Rounder Goal (LTG) Pt to return to community pool independently for exercise with no increased back pain 02/21/19:Pt still limited due to open wounds on arms LTG Duration 04/24/19 Two Impairment Pt only able to walk <one square block due to pain Short Term Goal (STG) Pt to ambulate 1/2 mile with no increased pain STG Duration 03/24/19 - Improving Senior Care Goal (LTG) Pt to ambulate one mile with no increased pain LTG Duration 04/24/19 - Improving One Impairment Pt does not have an appropriate home exercise program Short Term Goal (STG) Pt to be independent and compliant with an appropriate HEP STG Duration Met Assessment Summary Assessment Pt much improved following her injection compared to her recent decline in function, she is near, but slightly better than, her original level of function at her initial evaluation. Pt very interested in continuing therapy, and feels much more optimistic about improving with therapy now that her pain is lowered following her injection. Continue with ongoing skilled therapy to help improve lumbar function and decrease pain. Physical Therapy Plan Frequency and Duration Frequency of Treatment 2x/Week Duration of Treatment 12 weeks Plan of Care Start Date 02/21/19 Plan of Care End Date 05/16/19 Therapeutic Interventions Therapeutic Interventions Aquatic Therapy,Home Exercise Program,Joint Mobilizations, Manual Therapy,Self-Care/Home Management,Soft Tissue Mobilization,Therapeutic Activities,Therapeutic Exercises Modalities Cold Pack/Ice Massage,Electric Stimulation,Hot Packs, Ultrasound Next Visit Focus/Plan Next Note Type Treatment Note Next Visit Plan STM, Stretching, Core strengthening, Estim as needed Trunk gentle ROM for HEP Hip flexor stretch Plan of Care Dates Plan of Care Start Date 02/21/19 Plan of Care End Date 05/16/19
--- NOTE | 2019-02-28 11:16 | PT.OTN ---
Current Diagnoses Polyneuropathy, unspecified (02/28/19) Pain in right hip (02/28/19) Pain in left hip (02/28/19) Stiffness of right hip, not elsewhere classified (02/28/19) Stiffness of left hip, not elsewhere classified (02/28/19) Spondylolisthesis, lumbar region (02/28/19) Spondylosis without myelopathy or radiculopathy, lumbosacral region (02/28/19) Other intervertebral disc displacement, lumbar region (02/28/19) Muscle weakness (generalized) (02/28/19) Physical Therapy Treatment Note PT-OP-A Visit Information Start: 11/28/18 17:41 Freq: Status: Active Protocol: Document 02/28/19 10:30 DCW (Rec: 02/28/19 11:16 DCW [id number]) Out-Patient Physical Therapy Visit Information Visit Information Visit Type Treatment Note Visit Start Time 10:30 Visit Stop Time 11:25 Total Visit Minutes 55 Visit Number 15 Number of CLOUD SOLUTIONS ARCHITECT Visits 0 Evaluation Information Evaluation Date 11/28/18 PT-OP-B Current Condition Start: 11/28/18 17:41 Freq: Status: Active Protocol: Document 11/28/18 09:45 DCW (Rec: 11/28/18 17:58 DCW [id number]) Current Condition History of Current Condition Onset Date Two years Current Complaints Worsening back pain History of Current Condition Pt is a 78 year old female presenting with progressive low back pain. Pt notes she has had lumbar issues off and on for 20 years, but that six years ago, she was caring for her life partner, who was going through an illness at the time, and strained her back. It has been bad since then, and specifically worsening over the last two years. Additionally, pt notes that she pulled something on Monday in her left posterior hip, which has been causing even more pain and difficulty in her getting around. Pt notes that if she is sitting or lying down, she doesn't feel too bad, but if she stays in a position too samir, she has a large increase in pain when she tries to get up and move around. Pt feels like she has substantially decreased in her level of activity tolerance and overall fitness level. Pt reports that she tries to walk one block every day, and frequently is unable to do so. Pt also has in the past swam 3x/week, and now has not been to the pool in two years. 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 The most prominent level of degenerative change is L3-L4, where there is a left lateral recess disc extrusion, with associated moderate to severe central canal narrowing. Moderate to severe bilateral neural foraminal narrowing is also seen at this level. Impression taken from Objective history of pt note from MIRACLE Arriaza on Prior Functional Status Baseline Function- ADL's Independent Baseline Function- Mobility Independent Baseline Function- Gait Walk multiple miles downtown Baseline Function- Recreation/Hobbies Swimming at community pool Current Functional Impairments (Reported) Functional Limitations- Mobility/Gait Pt unable to walk more than one block Functional Limitations- Recreation/ Pt has not gone to pool in [place] past two years. PT-OP-C Subjective Start: 11/28/18 17:41 Freq: Status: Active Protocol: Document 02/28/19 10:30 DCW (Rec: 02/28/19 11:16 DCW [id number]) OP-PT Subjective Patient Comments Patient Comments Pt reports that it was very difficult to get in to see you today. I'm really hurting/ For some reason, my back and legs are just spasming all over the place. PT-OP-F Manual Assessment Start: 11/28/18 17:41 Freq: Status: Active Protocol: Document 02/21/19 10:30 DCW (Rec: 02/21/19 10:53 DCW [id number]) Manual Assessments Soft Tissue Assessment Soft Tissue Mobility Assessment Moderate tone and tenderness to palpation 2/4:Pain with wincing: bilateral piriformis Mild tone and tenderness to palpation 1/4: Complaint of pain: right QL, bilateral ITB PT-OP-K Range of Motion Start: 11/28/18 17:41 Freq: Status: Active Protocol: Document 02/21/19 10:30 DCW (Rec: 02/21/19 10:53 DCW [id number]) Lumbar Spine Range of Motion Lumbar Spine Active Degrees Testing Position Standing Flexion 62 Extension 13 Lateral Flexion Left 54 Lateral Flexion Right 53 ROM Limitations Pain Comments Extension limited secondary to pain PT-OP-L Special Tests Start: 11/28/18 17:41 Freq: Status: Active Protocol: Document 02/21/19 10:30 DCW (Rec: 02/21/19 10:53 DCW [id number]) Special Tests Lumbar Spine Special Tests Standing Flexion Test Results WNL Straight Leg Raise Test Results Negative Slump Test Results Negative Manual Traction Test Results Relief of pain Compression Test Results You can do that another 10 minutes Hip Special Tests Piriformis Test Results B tenderness at Piriformis PARAS Test Results Positive left ipsilateral lateral hip pain PT-OP-M Strength Start: 11/28/18 17:41 Freq: Status: Active Protocol: Document 02/21/19 10:30 DCW (Rec: 02/21/19 10:53 DCW [id number]) Trunk Strength Trunk Manual Muscle Testing Core Stabilization Pt able to properly contract TrA with verbal cues, unable to told more than 10 seconds MMT: 3+/5 Hip Strength Hip Manual Muscle Testing Right Flexion (L2) 4 Good Abduction 4 Good Adduction 4 Good External Rotation 4+ Good+ Internal Rotation 4+ Good+ Left Flexion (L2) 4 Good Abduction 3+ Fair+ Adduction 4- Good- External Rotation 4+ Good+ Internal Rotation 4+ Good+ Knee Strength Knee Manual Muscle Testing Right Flexion (S2) 4+ Good+ Extension (L3) 5 Normal Left Flexion (S2) 5 Normal Extension (L3) 5 Normal Ankle/Foot Strength Ankle and Foot Manual Muscle Testing Right Dorsiflexion (L4) 4 Good Plantarflexion (S1) 4 Good Left Dorsiflexion (L4) 4 Good Plantarflexion (S1) 4 Good PT-OP-Q Treatments Start: 11/28/18 17:41 Freq: Status: Active Protocol: Document 02/28/19 10:30 DCW (Rec: 02/28/19 11:16 DCW [id number]) Cardio Equipment Recumbent Elliptical (Biodex) Duration (Minutes) 5 Resistance 4 Seat Position 8 Gym Equipment Shuttle Recovery Unilateral Squats Resistance 37# Shuttle Recovery Platform Stable Bilateral Squats Resistance 75# Shuttle Recovery Platform Stable Therapeutic Exercises Standing Exercises Extension Standing Exercise Name Hip Extension Resistance yellow Equipment Used T-band Other Exercises Resisted Ambulation Other Exercise Name Side-stepping Resistance Yellow Manual Therapy Treatment Soft Tissue Mobilization Piriformis Body Location B Piriformis Mobilization Type Myofascial Release,Strumming, Sustained Pressure Intensity/Depth Moderate Body Position Sidelying L/S and glutes Body Location B L/S and glutes Mobilization Type Myofascial Release,Rolling Intensity/Depth Moderate Body Position Sidelying Joint Mobilizations lumbar distraction Grade III Body Position Hooklying Comments with mobilization belt PT-OP-R Modalities Start: 11/28/18 17:41 Freq: Status: Active Protocol: Document 02/28/19 10:30 DCW (Rec: 02/28/19 11:16 DCW [id number]) Hot Pack/Cold Pack Treatment Hot Pack Location Lumbar spine Patient Position Hooklying Treatment Duration (minutes) 10 Patient Tolerance Good PT-OP-T Assessment and Plan Start: 11/28/18 17:41 Freq: Status: Active Protocol: Document 02/28/19 10:30 DCW (Rec: 02/28/19 11:16 DCW [id number]) Physical Therapy Assessment Goals Four Impairment Core and hip weakness Short Term Goal (STG) Pt to demonstrate increased hip abduction bilaterally to 4 +/5 STG Duration 03/24/19 Senior Living Goal (LTG) Goal Met:Pt to exhibit core/ TrA MMT 4-/5 Advance to 4+/5 LTG Duration 04/24/19 Three Impairment Pt has not been able to swim for two years Senior Living Goal (LTG) Pt to return to community pool independently for exercise with no increased back pain 02/21/19:Pt still limited due to open wounds on arms LTG Duration 04/24/19 Two Impairment Pt only able to walk <one square block due to pain Short Term Goal (STG) Pt to ambulate 1/2 mile with no increased pain STG Duration 03/24/19 - Improving Senior Living Goal (LTG) Pt to ambulate one mile with no increased pain LTG Duration 04/24/19 - Improving One Impairment Pt does not have an appropriate home exercise program Short Term Goal (STG) Pt to be independent and compliant with an appropriate HEP STG Duration Met Assessment Summary Assessment Pt very sore today, complaining about being unable to perform any of her activities, however when presented with the task, she was able to complete all exercises. Physical Therapy Plan Frequency and Duration Frequency of Treatment 2x/Week Duration of Treatment 12 weeks Plan of Care Start Date 02/21/19 Plan of Care End Date 05/16/19 Therapeutic Interventions Therapeutic Interventions Aquatic Therapy,Home Exercise Program,Joint Mobilizations, Manual Therapy,Self-Care/Home Management,Soft Tissue Mobilization,Therapeutic Activities,Therapeutic Exercises Modalities Cold Pack/Ice Massage,Electric Stimulation,Hot Packs, Ultrasound Next Visit Focus/Plan Next Note Type Treatment Note Next Visit Plan STM, Stretching, Core strengthening, Estim as needed Trunk gentle ROM for HEP Hip flexor stretch
--- NOTE | 2019-03-19 14:27 | PT.OTN ---
Current Diagnoses Polyneuropathy, unspecified (03/19/19) Pain in right hip (03/19/19) Pain in left hip (03/19/19) Stiffness of right hip, not elsewhere classified (03/19/19) Stiffness of left hip, not elsewhere classified (03/19/19) Spondylolisthesis, lumbar region (03/19/19) Spondylosis without myelopathy or radiculopathy, lumbosacral region (03/19/19) Other intervertebral disc displacement, lumbar region (03/19/19) Muscle weakness (generalized) (03/19/19) Physical Therapy Treatment Note PT-OP-A Visit Information Start: 11/28/18 17:41 Freq: Status: Active Protocol: Document 03/19/19 13:45 DCW (Rec: 03/19/19 14:27 DCW [id number]) Out-Patient Physical Therapy Visit Information Visit Information Visit Type Treatment Note Visit Start Time 13:45 Visit Stop Time 14:35 Total Visit Minutes 50 Visit Number 16 Number of ORAL AND MAXILLOFACIAL PATHOLOGIST Visits 0 Evaluation Information Evaluation Date 11/28/18 PT-OP-B Current Condition Start: 11/28/18 17:41 Freq: Status: Active Protocol: Document 11/28/18 09:45 DCW (Rec: 11/28/18 17:58 DCW [id number]) Current Condition History of Current Condition Onset Date Two years Current Complaints Worsening back pain History of Current Condition Pt is a 78 year old female presenting with progressive low back pain. Pt notes she has had lumbar issues off and on for 20 years, but that six years ago, she was caring for her life partner, who was going through an illness at the time, and strained her back. It has been bad since then, and specifically worsening over the last two years. Additionally, pt notes that she pulled something on Monday in her left posterior hip, which has been causing even more pain and difficulty in her getting around. Pt notes that if she is sitting or lying down, she doesn't feel too bad, but if she stays in a position too samir, she has a large increase in pain when she tries to get up and move around. Pt feels like she has substantially decreased in her level of activity tolerance and overall fitness level. Pt reports that she tries to walk one block every day, and frequently is unable to do so. Pt also has in the past swam 3x/week, and now has not been to the pool in two years. 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 The most prominent level of degenerative change is L3-L4, where there is a left lateral recess disc extrusion, with associated moderate to severe central canal narrowing. Moderate to severe bilateral neural foraminal narrowing is also seen at this level. Impression taken from Objective history of pt note from MIRACLE Arriaza on Prior Functional Status Baseline Function- ADL's Independent Baseline Function- Mobility Independent Baseline Function- Gait Walk multiple miles downtown Baseline Function- Recreation/Hobbies Swimming at community pool Current Functional Impairments (Reported) Functional Limitations- Mobility/Gait Pt unable to walk more than one block Functional Limitations- Recreation/ Pt has not gone to pool in [place] past two years. PT-OP-C Subjective Start: 11/28/18 17:41 Freq: Status: Active Protocol: Document 03/19/19 13:45 DCW (Rec: 03/19/19 14:27 DCW [id number]) OP-PT Subjective Patient Comments Patient Comments Pt reports that she hurt her back trying to clean her house , and she is still a little sore from that. PT-OP-F Manual Assessment Start: 11/28/18 17:41 Freq: Status: Active Protocol: Document 02/21/19 10:30 DCW (Rec: 02/21/19 10:53 DCW [id number]) Manual Assessments Soft Tissue Assessment Soft Tissue Mobility Assessment Moderate tone and tenderness to palpation 2/4:Pain with wincing: bilateral piriformis Mild tone and tenderness to palpation 1/4: Complaint of pain: right QL, bilateral ITB PT-OP-K Range of Motion Start: 11/28/18 17:41 Freq: Status: Active Protocol: Document 02/21/19 10:30 DCW (Rec: 02/21/19 10:53 DCW [id number]) Lumbar Spine Range of Motion Lumbar Spine Active Degrees Testing Position Standing Flexion 62 Extension 13 Lateral Flexion Left 54 Lateral Flexion Right 53 ROM Limitations Pain Comments Extension limited secondary to pain PT-OP-L Special Tests Start: 11/28/18 17:41 Freq: Status: Active Protocol: Document 02/21/19 10:30 DCW (Rec: 02/21/19 10:53 DCW [id number]) Special Tests Lumbar Spine Special Tests Standing Flexion Test Results WNL Straight Leg Raise Test Results Negative Slump Test Results Negative Manual Traction Test Results Relief of pain Compression Test Results You can do that another 10 minutes Hip Special Tests Piriformis Test Results B tenderness at Piriformis PARAS Test Results Positive left ipsilateral lateral hip pain PT-OP-M Strength Start: 11/28/18 17:41 Freq: Status: Active Protocol: Document 02/21/19 10:30 DCW (Rec: 02/21/19 10:53 DCW [id number]) Trunk Strength Trunk Manual Muscle Testing Core Stabilization Pt able to properly contract TrA with verbal cues, unable to told more than 10 seconds MMT: 3+/5 Hip Strength Hip Manual Muscle Testing Right Flexion (L2) 4 Good Abduction 4 Good Adduction 4 Good External Rotation 4+ Good+ Internal Rotation 4+ Good+ Left Flexion (L2) 4 Good Abduction 3+ Fair+ Adduction 4- Good- External Rotation 4+ Good+ Internal Rotation 4+ Good+ Knee Strength Knee Manual Muscle Testing Right Flexion (S2) 4+ Good+ Extension (L3) 5 Normal Left Flexion (S2) 5 Normal Extension (L3) 5 Normal Ankle/Foot Strength Ankle and Foot Manual Muscle Testing Right Dorsiflexion (L4) 4 Good Plantarflexion (S1) 4 Good Left Dorsiflexion (L4) 4 Good Plantarflexion (S1) 4 Good PT-OP-Q Treatments Start: 11/28/18 17:41 Freq: Status: Active Protocol: Document 03/19/19 13:45 DCW (Rec: 03/19/19 14:27 DCW [id number]) Cardio Equipment Recumbent Elliptical ([employer]) Duration (Minutes) 5 Resistance 4 Seat Position 8 Gym Equipment Shuttle Recovery Unilateral Squats Resistance 37# Shuttle Recovery Platform Stable Bilateral Squats Resistance 75# Shuttle Recovery Platform Stable Therapeutic Exercises Standing Exercises Extension Standing Exercise Name Hip Extension Resistance yellow Equipment Used T-band Other Exercises Resisted Ambulation Other Exercise Name Side-stepping Resistance Yellow Manual Therapy Treatment Soft Tissue Mobilization Piriformis Body Location B Piriformis Mobilization Type Myofascial Release,Strumming, Sustained Pressure Intensity/Depth Moderate Body Position Sidelying L/S and glutes Body Location B L/S and glutes Mobilization Type Myofascial Release,Rolling Intensity/Depth Moderate Body Position Sidelying Joint Mobilizations lumbar distraction Grade III Body Position Hooklying Comments with mobilization belt PT-OP-R Modalities Start: 11/28/18 17:41 Freq: Status: Active Protocol: Document 03/19/19 13:45 DCW (Rec: 03/19/19 14:27 DCW [id number]) Hot Pack/Cold Pack Treatment Hot Pack Location Lumbar spine Patient Position Hooklying Treatment Duration (minutes) 10 Patient Tolerance Good PT-OP-T Assessment and Plan Start: 11/28/18 17:41 Freq: Status: Active Protocol: Document 03/19/19 13:45 DCW (Rec: 03/19/19 14:27 DCW [id number]) Physical Therapy Assessment Impairments Impairments Activity Tolerance,Functional Activities,Functional Mobility ,Pain,ROM,Soft Tissue Mobility ,Strength Goals Four Impairment Core and hip weakness Short Term Goal (STG) Pt to demonstrate increased hip abduction bilaterally to 4 +/5 STG Duration 03/24/19 Nursing Home Goal (LTG) Goal Met:Pt to exhibit core/ TrA MMT 4-/5 Advance to 4+/5 LTG Duration 04/24/19 Three Impairment Pt has not been able to swim for two years Strawhat Sizer Goal (LTG) Pt to return to community pool independently for exercise with no increased back pain 02/21/19:Pt still limited due to open wounds on arms LTG Duration 04/24/19 Two Impairment Pt only able to walk <one square block due to pain Short Term Goal (STG) Pt to ambulate 1/2 mile with no increased pain STG Duration 03/24/19 - Improving Nursing Home Goal (LTG) Pt to ambulate one mile with no increased pain LTG Duration 04/24/19 - Improving One Impairment Pt does not have an appropriate home exercise program Short Term Goal (STG) Pt to be independent and compliant with an appropriate HEP STG Duration Met Assessment Summary Assessment Pt again very sore, limiting her willingness to participate in some of her more involved activities. Pt admitted she felt much better following manual therapy. Physical Therapy Plan Frequency and Duration Frequency of Treatment 2x/Week Duration of Treatment 12 weeks Plan of Care Start Date 02/21/19 Plan of Care End Date 05/16/19 Therapeutic Interventions Therapeutic Interventions Aquatic Therapy,Home Exercise Program,Joint Mobilizations, Manual Therapy,Self-Care/Home Management,Soft Tissue Mobilization,Therapeutic Activities,Therapeutic Exercises Modalities Cold Pack/Ice Massage,Electric Stimulation,Hot Packs, Ultrasound Next Visit Focus/Plan Next Note Type Treatment Note Next Visit Plan STM, Stretching, Core strengthening, Estim as needed Trunk gentle ROM for HEP Hip flexor stretch
--- NOTE | 2019-04-01 12:45 | PT.OTN ---
Current Diagnoses Polyneuropathy, unspecified (04/01/19) Pain in right hip (04/01/19) Pain in left hip (04/01/19) Stiffness of right hip, not elsewhere classified (04/01/19) Stiffness of left hip, not elsewhere classified (04/01/19) Spondylolisthesis, lumbar region (04/01/19) Spondylosis without myelopathy or radiculopathy, lumbosacral region (04/01/19) Other intervertebral disc displacement, lumbar region (04/01/19) Muscle weakness (generalized) (04/01/19) Physical Therapy Treatment Note PT-OP-A Visit Information Start: 11/28/18 17:41 Freq: Status: Active Protocol: Document 04/01/19 12:00 DCW (Rec: 04/01/19 12:45 DCW [id number]) Out-Patient Physical Therapy Visit Information Visit Information Visit Type Treatment Note Visit Start Time 13:45 Visit Stop Time 14:35 Total Visit Minutes 50 Visit Number 17 Number of OUTPATIENT SCHEDULER Visits 0 Evaluation Information Evaluation Date 11/28/18 PT-OP-B Current Condition Start: 11/28/18 17:41 Freq: Status: Active Protocol: Document 11/28/18 09:45 DCW (Rec: 11/28/18 17:58 DCW [id number]) Current Condition History of Current Condition Onset Date Two years Current Complaints Worsening back pain History of Current Condition Pt is a 78 year old female presenting with progressive low back pain. Pt notes she has had lumbar issues off and on for 20 years, but that six years ago, she was caring for her life partner, who was going through an illness at the time, and strained her back. It has been bad since then, and specifically worsening over the last two years. Additionally, pt notes that she pulled something on Monday in her left posterior hip, which has been causing even more pain and difficulty in her getting around. Pt notes that if she is sitting or lying down, she doesn't feel too bad, but if she stays in a position too samir, she has a large increase in pain when she tries to get up and move around. Pt feels like she has substantially decreased in her level of activity tolerance and overall fitness level. Pt reports that she tries to walk one block every day, and frequently is unable to do so. Pt also has in the past swam 3x/week, and now has not been to the pool in two years. 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 The most prominent level of degenerative change is L3-L4, where there is a left lateral recess disc extrusion, with associated moderate to severe central canal narrowing. Moderate to severe bilateral neural foraminal narrowing is also seen at this level. Impression taken from Objective history of pt note from MIRACLE Arriaza on Prior Functional Status Baseline Function- ADL's Independent Baseline Function- Mobility Independent Baseline Function- Gait Walk multiple miles downtown Baseline Function- Recreation/Hobbies Swimming at community pool Current Functional Impairments (Reported) Functional Limitations- Mobility/Gait Pt unable to walk more than one block Functional Limitations- Recreation/ Pt has not gone to pool in [place] past two years. PT-OP-C Subjective Start: 11/28/18 17:41 Freq: Status: Active Protocol: Document 04/01/19 12:00 DCW (Rec: 04/01/19 12:45 DCW [id number]) OP-PT Subjective Patient Comments Patient Comments I did some stretches before I got out of bed, and I got the trash out, and just moved around to try to get everything stretched so I could get in here. PT-OP-F Manual Assessment Start: 11/28/18 17:41 Freq: Status: Active Protocol: Document 02/21/19 10:30 DCW (Rec: 02/21/19 10:53 DCW [id number]) Manual Assessments Soft Tissue Assessment Soft Tissue Mobility Assessment Moderate tone and tenderness to palpation 2/4:Pain with wincing: bilateral piriformis Mild tone and tenderness to palpation 1/4: Complaint of pain: right QL, bilateral ITB PT-OP-K Range of Motion Start: 11/28/18 17:41 Freq: Status: Active Protocol: Document 02/21/19 10:30 DCW (Rec: 02/21/19 10:53 DCW [id number]) Lumbar Spine Range of Motion Lumbar Spine Active Degrees Testing Position Standing Flexion 62 Extension 13 Lateral Flexion Left 54 Lateral Flexion Right 53 ROM Limitations Pain Comments Extension limited secondary to pain PT-OP-L Special Tests Start: 11/28/18 17:41 Freq: Status: Active Protocol: Document 02/21/19 10:30 DCW (Rec: 02/21/19 10:53 DCW [id number]) Special Tests Lumbar Spine Special Tests Standing Flexion Test Results WNL Straight Leg Raise Test Results Negative Slump Test Results Negative Manual Traction Test Results Relief of pain Compression Test Results You can do that another 10 minutes Hip Special Tests Piriformis Test Results B tenderness at Piriformis PARAS Test Results Positive left ipsilateral lateral hip pain PT-OP-M Strength Start: 11/28/18 17:41 Freq: Status: Active Protocol: Document 02/21/19 10:30 DCW (Rec: 02/21/19 10:53 DCW [id number]) Trunk Strength Trunk Manual Muscle Testing Core Stabilization Pt able to properly contract TrA with verbal cues, unable to told more than 10 seconds MMT: 3+/5 Hip Strength Hip Manual Muscle Testing Right Flexion (L2) 4 Good Abduction 4 Good Adduction 4 Good External Rotation 4+ Good+ Internal Rotation 4+ Good+ Left Flexion (L2) 4 Good Abduction 3+ Fair+ Adduction 4- Good- External Rotation 4+ Good+ Internal Rotation 4+ Good+ Knee Strength Knee Manual Muscle Testing Right Flexion (S2) 4+ Good+ Extension (L3) 5 Normal Left Flexion (S2) 5 Normal Extension (L3) 5 Normal Ankle/Foot Strength Ankle and Foot Manual Muscle Testing Right Dorsiflexion (L4) 4 Good Plantarflexion (S1) 4 Good Left Dorsiflexion (L4) 4 Good Plantarflexion (S1) 4 Good PT-OP-Q Treatments Start: 11/28/18 17:41 Freq: Status: Active Protocol: Document 04/01/19 12:00 DCW (Rec: 04/01/19 12:45 DCW [id number]) Cardio Equipment Recumbent Elliptical (BiodAlfred) Duration (Minutes) 5 Resistance 4 Seat Position 7 Gym Equipment Shuttle Recovery Unilateral Squats Resistance 37# Shuttle Recovery Platform Stable Bilateral Squats Resistance 75# Shuttle Recovery Platform Stable Therapeutic Exercises Standing Exercises Extension Standing Exercise Name Hip Extension Resistance Green Equipment Used T-band Other Exercises Resisted Ambulation Other Exercise Name Side-stepping Resistance Green Manual Therapy Treatment Soft Tissue Mobilization Piriformis Body Location B Piriformis Mobilization Type Myofascial Release,Strumming, Sustained Pressure Intensity/Depth Moderate Body Position Sidelying L/S and glutes Body Location B L/S and glutes Mobilization Type Myofascial Release,Rolling Intensity/Depth Moderate Body Position Sidelying Joint Mobilizations lumbar distraction Grade III Body Position Hooklying Comments with mobilization belt PT-OP-R Modalities Start: 11/28/18 17:41 Freq: Status: Active Protocol: Document 04/01/19 12:00 DCW (Rec: 04/01/19 12:45 DCW [id number]) Hot Pack/Cold Pack Treatment Hot Pack Location Lumbar spine Patient Position Hooklying Treatment Duration (minutes) 10 Patient Tolerance Good PT-OP-T Assessment and Plan Start: 11/28/18 17:41 Freq: Status: Active Protocol: Document 04/01/19 12:00 DCW (Rec: 04/01/19 12:45 DCW [id number]) Physical Therapy Assessment Impairments Impairments Activity Tolerance,Functional Activities,Functional Mobility ,Pain,ROM,Soft Tissue Mobility ,Strength Goals Four Impairment Core and hip weakness Short Term Goal (STG) Pt to demonstrate increased hip abduction bilaterally to 4 +/5 STG Duration 03/24/19 Jail Goal (LTG) Goal Met:Pt to exhibit core/ TrA MMT 4-/5 Advance to 4+/5 LTG Duration 04/24/19 Three Impairment Pt has not been able to swim for two years Belling Machine Operator Goal (LTG) Pt to return to community pool independently for exercise with no increased back pain 02/21/19:Pt still limited due to open wounds on arms LTG Duration 04/24/19 Two Impairment Pt only able to walk <one square block due to pain Short Term Goal (STG) Pt to ambulate 1/2 mile with no increased pain STG Duration 03/24/19 - Improving Belling Machine Operator Goal (LTG) Pt to ambulate one mile with no increased pain LTG Duration 04/24/19 - Improving One Impairment Pt does not have an appropriate home exercise program Short Term Goal (STG) Pt to be independent and compliant with an appropriate HEP STG Duration Met Assessment Summary Assessment Pt moving much better today, fully participated in her therapy with no complaints of increased pain and discomfort. Pt improved with her pain upon first waking, has been stretching prior to getting out of bed. Physical Therapy Plan Frequency and Duration Frequency of Treatment 2x/Week Duration of Treatment 12 weeks Plan of Care Start Date 02/21/19 Plan of Care End Date 05/16/19 Therapeutic Interventions Therapeutic Interventions Aquatic Therapy,Home Exercise Program,Joint Mobilizations, Manual Therapy,Self-Care/Home Management,Soft Tissue Mobilization,Therapeutic Activities,Therapeutic Exercises Modalities Cold Pack/Ice Massage,Electric Stimulation,Hot Packs, Ultrasound Next Visit Focus/Plan Next Note Type Treatment Note Next Visit Plan STM, Stretching, Core strengthening, Estim as needed Trunk gentle ROM for HEP Hip flexor stretch
--- NOTE | 2019-04-08 12:45 | PT.OTN ---
Current Diagnoses Polyneuropathy, unspecified (04/08/19) Pain in right hip (04/08/19) Pain in left hip (04/08/19) Stiffness of right hip, not elsewhere classified (04/08/19) Stiffness of left hip, not elsewhere classified (04/08/19) Spondylolisthesis, lumbar region (04/08/19) Spondylosis without myelopathy or radiculopathy, lumbosacral region (04/08/19) Other intervertebral disc displacement, lumbar region (04/08/19) Muscle weakness (generalized) (04/08/19) Physical Therapy Treatment Note PT-OP-A Visit Information Start: 11/28/18 17:41 Freq: Status: Active Protocol: Document 04/08/19 12:00 DCW (Rec: 04/08/19 12:45 DCW [id number]) Out-Patient Physical Therapy Visit Information Visit Information Visit Type Treatment Note Visit Start Time 12:00 Visit Stop Time 12:45 Total Visit Minutes 45 Visit Number 18 Number of SOAP INSPECTOR Visits 0 Evaluation Information Evaluation Date 11/28/18 PT-OP-B Current Condition Start: 11/28/18 17:41 Freq: Status: Active Protocol: Document 11/28/18 09:45 DCW (Rec: 11/28/18 17:58 DCW [id number]) Current Condition History of Current Condition Onset Date Two years Current Complaints Worsening back pain History of Current Condition Pt is a 78 year old female presenting with progressive low back pain. Pt notes she has had lumbar issues off and on for 20 years, but that six years ago, she was caring for her life partner, who was going through an illness at the time, and strained her back. It has been bad since then, and specifically worsening over the last two years. Additionally, pt notes that she pulled something on Monday in her left posterior hip, which has been causing even more pain and difficulty in her getting around. Pt notes that if she is sitting or lying down, she doesn't feel too bad, but if she stays in a position too samir, she has a large increase in pain when she tries to get up and move around. Pt feels like she has substantially decreased in her level of activity tolerance and overall fitness level. Pt reports that she tries to walk one block every day, and frequently is unable to do so. Pt also has in the past swam 3x/week, and now has not been to the pool in two years. 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 The most prominent level of degenerative change is L3-L4, where there is a left lateral recess disc extrusion, with associated moderate to severe central canal narrowing. Moderate to severe bilateral neural foraminal narrowing is also seen at this level. Impression taken from Objective history of pt note from MIRAC[facility] Arriaza on Prior Functional Status Baseline Function- ADL's Independent Baseline Function- Mobility Independent Baseline Function- Gait Walk multiple miles downtown Baseline Function- Recreation/Hobbies Swimming at community pool Current Functional Impairments (Reported) Functional Limitations- Mobility/Gait Pt unable to walk more than one block Functional Limitations- Recreation/ Pt has not gone to pool in [place] past two years. PT-OP-C Subjective Start: 11/28/18 17:41 Freq: Status: Active Protocol: Document 04/08/19 12:00 DCW (Rec: 04/08/19 12:45 DCW [id number]) OP-PT Subjective Patient Comments Patient Comments I had the shots on Monday, and I felt so wonderful I wasn 't using my cane yesterday, but today I'm having spells of lightheadedness, so I'm back with the cane. PT-OP-F Manual Assessment Start: 11/28/18 17:41 Freq: Status: Active Protocol: Document 02/21/19 10:30 DCW (Rec: 02/21/19 10:53 DCW [id number]) Manual Assessments Soft Tissue Assessment Soft Tissue Mobility Assessment Moderate tone and tenderness to palpation 2/4:Pain with wincing: bilateral piriformis Mild tone and tenderness to palpation 1/4: Complaint of pain: right QL, bilateral ITB PT-OP-K Range of Motion Start: 11/28/18 17:41 Freq: Status: Active Protocol: Document 02/21/19 10:30 DCW (Rec: 02/21/19 10:53 DCW [id number]) Lumbar Spine Range of Motion Lumbar Spine Active Degrees Testing Position Standing Flexion 62 Extension 13 Lateral Flexion Left 54 Lateral Flexion Right 53 ROM Limitations Pain Comments Extension limited secondary to pain PT-OP-L Special Tests Start: 11/28/18 17:41 Freq: Status: Active Protocol: Document 02/21/19 10:30 DCW (Rec: 02/21/19 10:53 DCW [id number]) Special Tests Lumbar Spine Special Tests Standing Flexion Test Results WNL Straight Leg Raise Test Results Negative Slump Test Results Negative Manual Traction Test Results Relief of pain Compression Test Results You can do that another 10 minutes Hip Special Tests Piriformis Test Results B tenderness at Piriformis PARAS Test Results Positive left ipsilateral lateral hip pain PT-OP-M Strength Start: 11/28/18 17:41 Freq: Status: Active Protocol: Document 02/21/19 10:30 DCW (Rec: 02/21/19 10:53 DCW [id number]) Trunk Strength Trunk Manual Muscle Testing Core Stabilization Pt able to properly contract TrA with verbal cues, unable to told more than 10 seconds MMT: 3+/5 Hip Strength Hip Manual Muscle Testing Right Flexion (L2) 4 Good Abduction 4 Good Adduction 4 Good External Rotation 4+ Good+ Internal Rotation 4+ Good+ Left Flexion (L2) 4 Good Abduction 3+ Fair+ Adduction 4- Good- External Rotation 4+ Good+ Internal Rotation 4+ Good+ Knee Strength Knee Manual Muscle Testing Right Flexion (S2) 4+ Good+ Extension (L3) 5 Normal Left Flexion (S2) 5 Normal Extension (L3) 5 Normal Ankle/Foot Strength Ankle and Foot Manual Muscle Testing Right Dorsiflexion (L4) 4 Good Plantarflexion (S1) 4 Good Left Dorsiflexion (L4) 4 Good Plantarflexion (S1) 4 Good PT-OP-Q Treatments Start: 11/28/18 17:41 Freq: Status: Active Protocol: Document 04/08/19 12:00 DCW (Rec: 04/08/19 12:45 DCW [id number]) Cardio Equipment Recumbent Elliptical ([employer]) Duration (Minutes) 5 Resistance 5 Seat Position 8 Gym Equipment Shuttle Recovery Unilateral Squats Resistance 37# Shuttle Recovery Platform Stable Bilateral Squats Resistance 75# Shuttle Recovery Platform Stable Therapeutic Exercises Standing Exercises Extension Standing Exercise Name Hip Extension Resistance Green Equipment Used T-band Other Exercises Resisted Ambulation Other Exercise Name Side-stepping Resistance Green Manual Therapy Treatment Soft Tissue Mobilization Piriformis Body Location B Piriformis Mobilization Type Myofascial Release,Strumming, Sustained Pressure Intensity/Depth Moderate Body Position Sidelying L/S and glutes Body Location B L/S and glutes Mobilization Type Myofascial Release,Rolling Intensity/Depth Moderate Body Position Sidelying Joint Mobilizations lumbar distraction Grade III Body Position Hooklying Comments with mobilization belt PT-OP-R Modalities Start: 11/28/18 17:41 Freq: Status: Active Protocol: Document 04/01/19 12:00 DCW (Rec: 04/01/19 12:45 DCW [id number]) Hot Pack/Cold Pack Treatment Hot Pack Location Lumbar spine Patient Position Hooklying Treatment Duration (minutes) 10 Patient Tolerance Good PT-OP-T Assessment and Plan Start: 11/28/18 17:41 Freq: Status: Active Protocol: Document 04/08/19 12:00 DCW (Rec: 04/08/19 12:45 DCW [id number]) Physical Therapy Assessment Impairments Impairments Activity Tolerance,Functional Activities,Functional Mobility ,Pain,ROM,Soft Tissue Mobility ,Strength Goals Four Impairment Core and hip weakness Short Term Goal (STG) Pt to demonstrate increased hip abduction bilaterally to 4 +/5 STG Duration 03/24/19 Prison Goal (LTG) Goal Met:Pt to exhibit core/ TrA MMT 4-/5 Advance to 4+/5 LTG Duration 04/24/19 Three Impairment Pt has not been able to swim for two years Prison Goal (LTG) Pt to return to community pool independently for exercise with no increased back pain 02/21/19:Pt still limited due to open wounds on arms LTG Duration 04/24/19 Two Impairment Pt only able to walk <one square block due to pain Short Term Goal (STG) Pt to ambulate 1/2 mile with no increased pain STG Duration 03/24/19 - Improving Prison Goal (LTG) Pt to ambulate one mile with no increased pain LTG Duration 04/24/19 - Improving One Impairment Pt does not have an appropriate home exercise program Short Term Goal (STG) Pt to be independent and compliant with an appropriate HEP STG Duration Met Assessment Summary Assessment Pt showing substantial improvement in movement and pain levels following her injection last Monday. Did complain of mild R-sided low back pain with resisted side- stepping, pain eliminated immediately upon stopping. Physical Therapy Plan Frequency and Duration Frequency of Treatment 2x/Week Duration of Treatment 12 weeks Plan of Care Start Date 02/21/19 Plan of Care End Date 05/16/19 Therapeutic Interventions Therapeutic Interventions Aquatic Therapy,Home Exercise Program,Joint Mobilizations, Manual Therapy,Self-Care/Home Management,Soft Tissue Mobilization,Therapeutic Activities,Therapeutic Exercises Modalities Cold Pack/Ice Massage,Electric Stimulation,Hot Packs, Ultrasound Next Visit Focus/Plan Next Note Type Treatment Note Next Visit Plan STM, Stretching, Core strengthening, Estim as needed Trunk gentle ROM for HEP Hip flexor stretch
--- NOTE | 2019-04-10 11:23 | PT.OTN ---
Current Diagnoses Polyneuropathy, unspecified (04/10/19) Pain in right hip (04/10/19) Pain in left hip (04/10/19) Stiffness of right hip, not elsewhere classified (04/10/19) Stiffness of left hip, not elsewhere classified (04/10/19) Spondylolisthesis, lumbar region (04/10/19) Spondylosis without myelopathy or radiculopathy, lumbosacral region (04/10/19) Other intervertebral disc displacement, lumbar region (04/10/19) Muscle weakness (generalized) (04/10/19) Physical Therapy Treatment Note PT-OP-A Visit Information Start: 11/28/18 17:41 Freq: Status: Active Protocol: Document 04/10/19 10:38 SP (Rec: 04/10/19 11:43 SP [id number]) Out-Patient Physical Therapy Visit Information Visit Information Visit Type Treatment Note Visit Start Time 10:38 Visit Stop Time 11:23 Total Visit Minutes 45 Visit Number 19 Number of NURSING ADMIN Visits 1 PT-OP-B Current Condition Start: 11/28/18 17:41 Freq: Status: Active Protocol: Document 11/28/18 09:45 DCW (Rec: 11/28/18 17:58 DCW [id number]) Current Condition History of Current Condition Onset Date Two years Current Complaints Worsening back pain History of Current Condition Pt is a 78 year old female presenting with progressive low back pain. Pt notes she has had lumbar issues off and on for 20 years, but that six years ago, she was caring for her life partner, who was going through an illness at the time, and strained her back. It has been bad since then, and specifically worsening over the last two years. Additionally, pt notes that she pulled something on Monday in her left posterior hip, which has been causing even more pain and difficulty in her getting around. Pt notes that if she is sitting or lying down, she doesn't feel too bad, but if she stays in a position too samir, she has a large increase in pain when she tries to get up and move around. Pt feels like she has substantially decreased in her level of activity tolerance and overall fitness level. Pt reports that she tries to walk one block every day, and frequently is unable to do so. Pt also has in the past swam 3x/week, and now has not been to the pool in two years. 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 The most prominent level of degenerative change is L3-L4, where there is a left lateral recess disc extrusion, with associated moderate to severe central canal narrowing. Moderate to severe bilateral neural foraminal narrowing is also seen at this level. Impression taken from Objective history of pt note from [facility] Arriaza on Prior Functional Status Baseline Function- ADL's Independent Baseline Function- Mobility Independent Baseline Function- Gait Walk multiple miles downtown Baseline Function- Recreation/Hobbies Swimming at [employer] pool Current Functional Impairments (Reported) Functional Limitations- Mobility/Gait Pt unable to walk more than one block Functional Limitations- Recreation/ Pt has not gone to pool in [place] past two years. PT-OP-C Subjective Start: 11/28/18 17:41 Freq: Status: Active Protocol: Document 04/10/19 10:38 SP (Rec: 04/10/19 11:43 SP [id number]) OP-PT Subjective Patient Comments Patient Comments Pt reported LBP 3/10 pre PT and radiating poseriorly down back of both legs, knees to heels and using SPC for stability, not to heavy. PT-OP-F Manual Assessment Start: 11/28/18 17:41 Freq: Status: Active Protocol: Document 02/21/19 10:30 DCW (Rec: 02/21/19 10:53 DCW [id number]) Manual Assessments Soft Tissue Assessment Soft Tissue Mobility Assessment Moderate tone and tenderness to palpation 2/4:Pain with wincing: bilateral piriformis Mild tone and tenderness to palpation 1/4: Complaint of pain: right QL, bilateral ITB PT-OP-K Range of Motion Start: 11/28/18 17:41 Freq: Status: Active Protocol: Document 02/21/19 10:30 DCW (Rec: 02/21/19 10:53 DCW [id number]) Lumbar Spine Range of Motion Lumbar Spine Active Degrees Testing Position Standing Flexion 62 Extension 13 Lateral Flexion Left 54 Lateral Flexion Right 53 ROM Limitations Pain Comments Extension limited secondary to pain PT-OP-L Special Tests Start: 11/28/18 17:41 Freq: Status: Active Protocol: Document 02/21/19 10:30 DCW (Rec: 02/21/19 10:53 DCW [id number]) Special Tests Lumbar Spine Special Tests Standing Flexion Test Results WNL Straight Leg Raise Test Results Negative Slump Test Results Negative Manual Traction Test Results Relief of pain Compression Test Results You can do that another 10 minutes Hip Special Tests Piriformis Test Results B tenderness at Piriformis PARAS Test Results Positive left ipsilateral lateral hip pain PT-OP-M Strength Start: 11/28/18 17:41 Freq: Status: Active Protocol: Document 02/21/19 10:30 DCW (Rec: 02/21/19 10:53 DCW [id number]) Trunk Strength Trunk Manual Muscle Testing Core Stabilization Pt able to properly contract TrA with verbal cues, unable to told more than 10 seconds MMT: 3+/5 Hip Strength Hip Manual Muscle Testing Right Flexion (L2) 4 Good Abduction 4 Good Adduction 4 Good External Rotation 4+ Good+ Internal Rotation 4+ Good+ Left Flexion (L2) 4 Good Abduction 3+ Fair+ Adduction 4- Good- External Rotation 4+ Good+ Internal Rotation 4+ Good+ Knee Strength Knee Manual Muscle Testing Right Flexion (S2) 4+ Good+ Extension (L3) 5 Normal Left Flexion (S2) 5 Normal Extension (L3) 5 Normal Ankle/Foot Strength Ankle and Foot Manual Muscle Testing Right Dorsiflexion (L4) 4 Good Plantarflexion (S1) 4 Good Left Dorsiflexion (L4) 4 Good Plantarflexion (S1) 4 Good PT-OP-Q Treatments Start: 11/28/18 17:41 Freq: Status: Active Protocol: Document 04/10/19 10:38 SP (Rec: 04/10/19 11:43 SP [id number]) Cardio Equipment Recumbent Elliptical ([employer]) Duration (Minutes) 5 Resistance 2 Seat Position 7 Therapeutic Exercises Supine Exercises double knee to chest Side bilateral Reps/Minutes x3 Comments cued PPT, stopped due to LBP marches with TA Side bilateral Reps/Minutes 6 x4 Comments with half knee flexion lower trunk rotation Supine Exercise Name LTR Side bilateral Reps/Minutes 20 Comments cues on flat back bridges Supine Exercise Name segmental PPT lift Reps/Minutes x10 Standing Exercises shld ext, Trans ab Standing Exercise Name stagger wide base stance Resistance Tb #1 Reps/Minutes x10 Comments cued PPT core trans ab activaton Other Exercises Resisted Ambulation Other Exercise Name Side-stepping Resistance Green Comments cued PPT, decrease hip elevation and foot clearance sit to stand Other Exercise Name sit to stand Reps/Minutes 8 x2 Comments with hip hinge PT-OP-R Modalities Start: 11/28/18 17:41 Freq: Status: Active Protocol: Document 04/10/19 10:38 SP (Rec: 04/10/19 11:43 SP [id number]) Hot Pack/Cold Pack Treatment Hot Pack Location Lumbar spine Patient Position Hooklying Treatment Duration (minutes) 10 Patient Tolerance Good PT-OP-T Assessment and Plan Start: 11/28/18 17:41 Freq: Status: Active Protocol: Document 04/10/19 10:38 SP (Rec: 04/10/19 11:43 SP [id number]) Physical Therapy Assessment Goals Four Impairment Core and hip weakness Short Term Goal (STG) Pt to demonstrate increased hip abduction bilaterally to 4 +/5 STG Duration 03/24/19 Detention Goal (LTG) Goal Met:Pt to exhibit core/ TrA MMT 4-/5 Advance to 4+/5 LTG Duration 04/24/19 Three Impairment Pt has not been able to swim for two years Detention Goal (LTG) Pt to return to community pool independently for exercise with no increased back pain 02/21/19:Pt still limited due to open wounds on arms LTG Duration 04/24/19 Two Impairment Pt only able to walk <one square block due to pain Short Term Goal (STG) Pt to ambulate 1/2 mile with no increased pain STG Duration 03/24/19 - Improving Detention Goal (LTG) Pt to ambulate one mile with no increased pain LTG Duration 04/24/19 - Improving One Impairment Pt does not have an appropriate home exercise program Short Term Goal (STG) Pt to be independent and compliant with an appropriate HEP STG Duration Met Assessment Summary Assessment Pt decreased endurance today on bike decreased resistance but able to maintain approx 40 RPM Lev 2-3 resistance. Pt required rest breaks between each exercise in standing secondary to decreased endurance and + slight SOB with only 10 sec recovery needed. Reviewed supine ex today initially for core facailitation and decrease LBP radiating in postuer BLE with + results with sit to stands, side step and added shld ext withcore awareness. Pt requested MHP end of tx with report I am able to move better and no LB twinging as did when got here. Pt stated wants to get stronger in core and legs to get back to working in the pool and activities did prior to her husbands passing. Physical Therapy Plan Frequency and Duration Frequency of Treatment 2x/Week Duration of Treatment 12 weeks Plan of Care Start Date 02/21/19 Plan of Care End Date 05/16/19 Therapeutic Interventions Therapeutic Interventions Aquatic Therapy,Home Exercise Program,Joint Mobilizations, Manual Therapy,Self-Care/Home Management,Soft Tissue Mobilization,Therapeutic Activities,Therapeutic Exercises Modalities Cold Pack/Ice Massage,Electric Stimulation,Hot Packs, Ultrasound Next Visit Focus/Plan Next Note Type Treatment Note Next Visit Plan Assess added shld ext Tb core standing added last tx. Possible add pool therapy to acclimate back to self pool HEP prior performed. STM, Stretching, Core strengthening, Estim as needed Trunk gentle ROM for HEP Hip flexor stretch
--- NOTE | 2019-04-15 12:53 | PT.OTN ---
Current Diagnoses Polyneuropathy, unspecified (04/15/19) Pain in right hip (04/15/19) Pain in left hip (04/15/19) Stiffness of right hip, not elsewhere classified (04/15/19) Stiffness of left hip, not elsewhere classified (04/15/19) Spondylolisthesis, lumbar region (04/15/19) Spondylosis without myelopathy or radiculopathy, lumbosacral region (04/15/19) Other intervertebral disc displacement, lumbar region (04/15/19) Muscle weakness (generalized) (04/15/19) Physical Therapy Treatment Note PT-OP-A Visit Information Start: 11/28/18 17:41 Freq: Status: Active Protocol: Document 04/15/19 12:00 DCW (Rec: 04/15/19 12:53 DCW [id number]) Out-Patient Physical Therapy Visit Information Visit Information Visit Type Treatment Note Visit Start Time 12:00 Visit Stop Time 12:55 Total Visit Minutes 55 Visit Number 20 Number of SIMULATION TECHNICIAN Visits 0 Evaluation Information Evaluation Date 11/28/18 PT-OP-B Current Condition Start: 11/28/18 17:41 Freq: Status: Active Protocol: Document 11/28/18 09:45 DCW (Rec: 11/28/18 17:58 DCW [id number]) Current Condition History of Current Condition Onset Date Two years Current Complaints Worsening back pain History of Current Condition Pt is a 78 year old female presenting with progressive low back pain. Pt notes she has had lumbar issues off and on for 20 years, but that six years ago, she was caring for her life partner, who was going through an illness at the time, and strained her back. It has been bad since then, and specifically worsening over the last two years. Additionally, pt notes that she pulled something on Monday in her left posterior hip, which has been causing even more pain and difficulty in her getting around. Pt notes that if she is sitting or lying down, she doesn't feel too bad, but if she stays in a position too samir, she has a large increase in pain when she tries to get up and move around. Pt feels like she has substantially decreased in her level of activity tolerance and overall fitness level. Pt reports that she tries to walk one block every day, and frequently is unable to do so. Pt also has in the past swam 3x/week, and now has not been to the pool in two years. 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 The most prominent level of degenerative change is L3-L4, where there is a left lateral recess disc extrusion, with associated moderate to severe central canal narrowing. Moderate to severe bilateral neural foraminal narrowing is also seen at this level. Impression taken from Objective history of pt note from MIRACLE Arriaza on Prior Functional Status Baseline Function- ADL's Independent Baseline Function- Mobility Independent Baseline Function- Gait Walk multiple miles downtown Baseline Function- Recreation/Hobbies Swimming at community pool Current Functional Impairments (Reported) Functional Limitations- Mobility/Gait Pt unable to walk more than one block Functional Limitations- Recreation/ Pt has not gone to pool in [place] past two years. PT-OP-C Subjective Start: 11/28/18 17:41 Freq: Status: Active Protocol: Document 04/15/19 12:00 DCW (Rec: 04/15/19 12:53 DCW [id number]) OP-PT Subjective Patient Comments Patient Comments Pt notes some new pain in her right foot, she has no idea what caused it, but she's not too worried about it. PT-OP-F Manual Assessment Start: 11/28/18 17:41 Freq: Status: Active Protocol: Document 02/21/19 10:30 DCW (Rec: 02/21/19 10:53 DCW [id number]) Manual Assessments Soft Tissue Assessment Soft Tissue Mobility Assessment Moderate tone and tenderness to palpation 2/4:Pain with wincing: bilateral piriformis Mild tone and tenderness to palpation 1/4: Complaint of pain: right QL, bilateral ITB PT-OP-K Range of Motion Start: 11/28/18 17:41 Freq: Status: Active Protocol: Document 02/21/19 10:30 DCW (Rec: 02/21/19 10:53 DCW [id number]) Lumbar Spine Range of Motion Lumbar Spine Active Degrees Testing Position Standing Flexion 62 Extension 13 Lateral Flexion Left 54 Lateral Flexion Right 53 ROM Limitations Pain Comments Extension limited secondary to pain PT-OP-L Special Tests Start: 11/28/18 17:41 Freq: Status: Active Protocol: Document 02/21/19 10:30 DCW (Rec: 02/21/19 10:53 DCW [id number]) Special Tests Lumbar Spine Special Tests Standing Flexion Test Results WNL Straight Leg Raise Test Results Negative Slump Test Results Negative Manual Traction Test Results Relief of pain Compression Test Results You can do that another 10 minutes Hip Special Tests Piriformis Test Results B tenderness at Piriformis PARAS Test Results Positive left ipsilateral lateral hip pain PT-OP-M Strength Start: 11/28/18 17:41 Freq: Status: Active Protocol: Document 02/21/19 10:30 DCW (Rec: 02/21/19 10:53 DCW [id number]) Trunk Strength Trunk Manual Muscle Testing Core Stabilization Pt able to properly contract TrA with verbal cues, unable to told more than 10 seconds MMT: 3+/5 Hip Strength Hip Manual Muscle Testing Right Flexion (L2) 4 Good Abduction 4 Good Adduction 4 Good External Rotation 4+ Good+ Internal Rotation 4+ Good+ Left Flexion (L2) 4 Good Abduction 3+ Fair+ Adduction 4- Good- External Rotation 4+ Good+ Internal Rotation 4+ Good+ Knee Strength Knee Manual Muscle Testing Right Flexion (S2) 4+ Good+ Extension (L3) 5 Normal Left Flexion (S2) 5 Normal Extension (L3) 5 Normal Ankle/Foot Strength Ankle and Foot Manual Muscle Testing Right Dorsiflexion (L4) 4 Good Plantarflexion (S1) 4 Good Left Dorsiflexion (L4) 4 Good Plantarflexion (S1) 4 Good PT-OP-Q Treatments Start: 11/28/18 17:41 Freq: Status: Active Protocol: Document 04/15/19 12:00 DCW (Rec: 04/15/19 12:53 DCW [id number]) Cardio Equipment Recumbent Elliptical (Biodex) Duration (Minutes) 5 Resistance 4 Seat Position 7 Gym Equipment Shuttle Recovery Unilateral Squats Resistance 37# Shuttle Recovery Platform Stable Reps/Time x30 Bilateral Squats Resistance 75# Shuttle Recovery Platform Stable Reps/Time x30 Therapeutic Exercises Supine Exercises marches with TA Side bilateral Reps/Minutes 6 x4 Comments with half knee flexion lower trunk rotation Supine Exercise Name LTR Side bilateral Reps/Minutes 20 Comments cues on flat back bridges Supine Exercise Name segmental PPT lift Reps/Minutes x10 Standing Exercises Extension Standing Exercise Name Hip Extension Resistance Green->Yellow Equipment Used T-band Comments decreased resistance d/t back pain Other Exercises Resisted Ambulation Other Exercise Name Side-stepping Resistance Green Manual Therapy Treatment Soft Tissue Mobilization Piriformis Body Location B Piriformis Mobilization Type Myofascial Release,Strumming, Sustained Pressure Intensity/Depth Moderate Body Position Sidelying L/S and glutes Body Location B L/S and glutes Mobilization Type Myofascial Release,Rolling Intensity/Depth Moderate Body Position Sidelying Joint Mobilizations lumbar distraction Grade III Body Position Hooklying Comments with mobilization belt PT-OP-R Modalities Start: 11/28/18 17:41 Freq: Status: Active Protocol: Document 04/15/19 12:00 DCW (Rec: 04/15/19 12:53 DCW [id number]) Hot Pack/Cold Pack Treatment Hot Pack Location Lumbar spine Patient Position Hooklying Treatment Duration (minutes) 15 Patient Tolerance Good PT-OP-T Assessment and Plan Start: 11/28/18 17:41 Freq: Status: Active Protocol: Document 04/15/19 12:00 DCW (Rec: 04/15/19 12:53 DCW [id number]) Physical Therapy Assessment Impairments Impairments Activity Tolerance,Functional Activities,Functional Mobility ,Pain,ROM,Soft Tissue Mobility ,Strength Goals Four Impairment Core and hip weakness Short Term Goal (STG) Pt to demonstrate increased hip abduction bilaterally to 4 +/5 STG Duration 03/24/19 Catering Associate Goal (LTG) Goal Met:Pt to exhibit core/ TrA MMT 4-/5 Advance to 4+/5 LTG Duration 04/24/19 Three Impairment Pt has not been able to swim for two years Care Home Goal (LTG) Pt to return to community pool independently for exercise with no increased back pain 02/21/19:Pt still limited due to open wounds on arms LTG Duration 04/24/19 Two Impairment Pt only able to walk <one square block due to pain Short Term Goal (STG) Pt to ambulate 1/2 mile with no increased pain STG Duration 03/24/19 - Improving Care Home Goal (LTG) Pt to ambulate one mile with no increased pain LTG Duration 04/24/19 - Improving One Impairment Pt does not have an appropriate home exercise program Short Term Goal (STG) Pt to be independent and compliant with an appropriate HEP STG Duration Met Assessment Summary Assessment Pt still doing well, will require a new assessment to address her recent new referral for dizziness. Physical Therapy Plan Frequency and Duration Frequency of Treatment 2x/Week Duration of Treatment 12 weeks Plan of Care Start Date 02/21/19 Plan of Care End Date 05/16/19 Therapeutic Interventions Therapeutic Interventions Aquatic Therapy,Home Exercise Program,Joint Mobilizations, Manual Therapy,Self-Care/Home Management,Soft Tissue Mobilization,Therapeutic Activities,Therapeutic Exercises Modalities Cold Pack/Ice Massage,Electric Stimulation,Hot Packs, Ultrasound Next Visit Focus/Plan Next Note Type Treatment Note Next Visit Plan Assess added shld ext Tb core standing added last tx. Possible add pool therapy to acclimate back to self pool HEP prior performed. STM, Stretching, Core strengthening, Estim as needed Trunk gentle ROM for HEP Hip flexor stretch
--- NOTE | 2019-04-18 12:06 | PT.OTN ---
Current Diagnoses Polyneuropathy, unspecified (04/18/19) Pain in right hip (04/18/19) Pain in left hip (04/18/19) Stiffness of right hip, not elsewhere classified (04/18/19) Stiffness of left hip, not elsewhere classified (04/18/19) Spondylolisthesis, lumbar region (04/18/19) Spondylosis without myelopathy or radiculopathy, lumbosacral region (04/18/19) Other intervertebral disc displacement, lumbar region (04/18/19) Muscle weakness (generalized) (04/18/19) Physical Therapy Treatment Note PT-OP-A Visit Information Start: 11/28/18 17:41 Freq: Status: Active Protocol: Document 04/18/19 11:18 HH (Rec: 04/18/19 12:05 [id number]) Out-Patient Physical Therapy Visit Information Visit Information Visit Type Treatment Note Visit Start Time 11:15 Visit Stop Time 12:00 Total Visit Minutes 45 Visit Number 21 Number of METAL MILLING MACHINE OPERATOR Visits 0 PT-OP-B Current Condition Start: 11/28/18 17:41 Freq: Status: Active Protocol: Document 11/28/18 09:45 DCW (Rec: 11/28/18 17:58 DCW [id number]) Current Condition History of Current Condition Onset Date Two years Current Complaints Worsening back pain History of Current Condition Pt is a 78 year old female presenting with progressive low back pain. Pt notes she has had lumbar issues off and on for 20 years, but that six years ago, she was caring for her life partner, who was going through an illness at the time, and strained her back. It has been bad since then, and specifically worsening over the last two years. Additionally, pt notes that she pulled something on Monday in her left posterior hip, which has been causing even more pain and difficulty in her getting around. Pt notes that if she is sitting or lying down, she doesn't feel too bad, but if she stays in a position too samir, she has a large increase in pain when she tries to get up and move around. Pt feels like she has substantially decreased in her level of activity tolerance and overall fitness level. Pt reports that she tries to walk one block every day, and frequently is unable to do so. Pt also has in the past swam 3x/week, and now has not been to the pool in two years. 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 The most prominent level of degenerative change is L3-L4, where there is a left lateral recess disc extrusion, with associated moderate to severe central canal narrowing. Moderate to severe bilateral neural foraminal narrowing is also seen at this level. Impression taken from Objective history of pt note from MIRACLE Arriaza on Prior Functional Status Baseline Function- ADL's Independent Baseline Function- Mobility Independent Baseline Function- Gait Walk multiple miles downtown Baseline Function- Recreation/Hobbies Swimming at [employer] pool Current Functional Impairments (Reported) Functional Limitations- Mobility/Gait Pt unable to walk more than one block Functional Limitations- Recreation/ Pt has not gone to pool in [place] past two years. PT-OP-C Subjective Start: 11/28/18 17:41 Freq: Status: Active Protocol: Document 04/18/19 11:18 HH (Rec: 04/18/19 12:05 HH [id number]) OP-PT Subjective Patient Comments Patient Comments I havent been able to move much since monday possibly d/t my gout. I thought i was progressing but this is frustrating. PT-OP-F Manual Assessment Start: 11/28/18 17:41 Freq: Status: Active Protocol: Document 02/21/19 10:30 DCW (Rec: 02/21/19 10:53 DCW [id number]) Manual Assessments Soft Tissue Assessment Soft Tissue Mobility Assessment Moderate tone and tenderness to palpation 2/4:Pain with wincing: bilateral piriformis Mild tone and tenderness to palpation 1/4: Complaint of pain: right QL, bilateral ITB PT-OP-K Range of Motion Start: 11/28/18 17:41 Freq: Status: Active Protocol: Document 02/21/19 10:30 DCW (Rec: 02/21/19 10:53 DCW [id number]) Lumbar Spine Range of Motion Lumbar Spine Active Degrees Testing Position Standing Flexion 62 Extension 13 Lateral Flexion Left 54 Lateral Flexion Right 53 ROM Limitations Pain Comments Extension limited secondary to pain PT-OP-L Special Tests Start: 11/28/18 17:41 Freq: Status: Active Protocol: Document 02/21/19 10:30 DCW (Rec: 02/21/19 10:53 DCW [id number]) Special Tests Lumbar Spine Special Tests Standing Flexion Test Results WNL Straight Leg Raise Test Results Negative Slump Test Results Negative Manual Traction Test Results Relief of pain Compression Test Results You can do that another 10 minutes Hip Special Tests Piriformis Test Results B tenderness at Piriformis PARAS Test Results Positive left ipsilateral lateral hip pain PT-OP-M Strength Start: 11/28/18 17:41 Freq: Status: Active Protocol: Document 02/21/19 10:30 DCW (Rec: 02/21/19 10:53 DCW [id number]) Trunk Strength Trunk Manual Muscle Testing Core Stabilization Pt able to properly contract TrA with verbal cues, unable to told more than 10 seconds MMT: 3+/5 Hip Strength Hip Manual Muscle Testing Right Flexion (L2) 4 Good Abduction 4 Good Adduction 4 Good External Rotation 4+ Good+ Internal Rotation 4+ Good+ Left Flexion (L2) 4 Good Abduction 3+ Fair+ Adduction 4- Good- External Rotation 4+ Good+ Internal Rotation 4+ Good+ Knee Strength Knee Manual Muscle Testing Right Flexion (S2) 4+ Good+ Extension (L3) 5 Normal Left Flexion (S2) 5 Normal Extension (L3) 5 Normal Ankle/Foot Strength Ankle and Foot Manual Muscle Testing Right Dorsiflexion (L4) 4 Good Plantarflexion (S1) 4 Good Left Dorsiflexion (L4) 4 Good Plantarflexion (S1) 4 Good PT-OP-Q Treatments Start: 11/28/18 17:41 Freq: Status: Active Protocol: Document 04/18/19 11:18 (Rec: 04/18/19 12:05 [id number]) Cardio Equipment Recumbent Stepper (Sci-Fit) Duration (Minutes) 8 Therapeutic Exercises Supine Exercises tennis ball release Supine Exercise Name peanut ball Side bilateral Reps/Minutes 10 sec x 3 Comments pt has difficulty tolerate the pressure double knee to chest Side bilateral Reps/Minutes 2 mins Comments cued PPT, stopped due to LBP marches with TA Side bilateral Reps/Minutes 6 x4 Comments with half knee flexion lower trunk rotation Supine Exercise Name LTR Side bilateral Reps/Minutes 20 Comments cues on flat back Manual Therapy Treatment Soft Tissue Mobilization Piriformis Body Location B Piriformis Mobilization Type Myofascial Release,Strumming, Sustained Pressure Intensity/Depth Moderate Body Position Sidelying L/S and glutes Body Location B L/S and glutes Mobilization Type Myofascial Release,Rolling Intensity/Depth Moderate Body Position Sidelying Joint Mobilizations B hip distraction Direction inferior Grade II Body Position Supine Reps/Duration 8 sec x 4 PT-OP-R Modalities Start: 11/28/18 17:41 Freq: Status: Active Protocol: Document 04/18/19 11:18 HH (Rec: 04/18/19 12:05 HH [id number]) Hot Pack/Cold Pack Treatment Hot Pack Location Lumbar spine Patient Position Hooklying Treatment Duration (minutes) 10 Patient Tolerance Good PT-OP-T Assessment and Plan Start: 11/28/18 17:41 Freq: Status: Active Protocol: Document 04/18/19 11:18 HH (Rec: 04/18/19 12:05 [id number]) Physical Therapy Assessment Goals Four Impairment Core and hip weakness Short Term Goal (STG) Pt to demonstrate increased hip abduction bilaterally to 4 +/5 STG Duration 03/24/19 Group Home Goal (LTG) Goal Met:Pt to exhibit core/ TrA MMT 4-/5 Advance to 4+/5 LTG Duration 04/24/19 Three Impairment Pt has not been able to swim for two years Group Home Goal (LTG) Pt to return to community pool independently for exercise with no increased back pain 02/21/19:Pt still limited due to open wounds on arms LTG Duration 04/24/19 Two Impairment Pt only able to walk <one square block due to pain Short Term Goal (STG) Pt to ambulate 1/2 mile with no increased pain STG Duration 03/24/19 - Improving Telephone Clerk Goal (LTG) Pt to ambulate one mile with no increased pain LTG Duration 04/24/19 - Improving One Impairment Pt does not have an appropriate home exercise program Short Term Goal (STG) Pt to be independent and compliant with an appropriate HEP STG Duration Met Assessment Summary Assessment Pt has set back this week with decreased mobility and increased LBP. Pt does not known why. Tx focus on primarily on supine position today. Educated pt to use tennis ball release for self massage. Pt cont to feel less pain with flexion based ex. Physical Therapy Plan Next Visit Focus/Plan Next Note Type Treatment Note Next Visit Plan Assess added shld ext Tb core standing added last tx. Possible add pool therapy to acclimate back to self pool HEP prior performed. STM, Stretching, Core strengthening, Estim as needed Trunk gentle ROM for HEP Hip flexor stretch
--- NOTE | 2019-04-23 13:14 | PT.OTN ---
Current Diagnoses Polyneuropathy, unspecified (04/23/19) Pain in right hip (04/23/19) Pain in left hip (04/23/19) Stiffness of right hip, not elsewhere classified (04/23/19) Stiffness of left hip, not elsewhere classified (04/23/19) Spondylolisthesis, lumbar region (04/23/19) Spondylosis without myelopathy or radiculopathy, lumbosacral region (04/23/19) Other intervertebral disc displacement, lumbar region (04/23/19) Muscle weakness (generalized) (04/23/19) Physical Therapy Treatment Note PT-OP-A Visit Information Start: 11/28/18 17:41 Freq: Status: Active Protocol: Document 04/23/19 12:51 SP (Rec: 04/23/19 13:14 SP [id number]) Out-Patient Physical Therapy Visit Information Visit Information Visit Type Treatment Note Visit Start Time 10:45 Visit Stop Time 11:32 Total Visit Minutes 47 Visit Number 22 Number of SERVICE DELIVERY CONSULTANT Visits 1 PT-OP-B Current Condition Start: 11/28/18 17:41 Freq: Status: Active Protocol: Document 11/28/18 09:45 DCW (Rec: 11/28/18 17:58 DCW [id number]) Current Condition History of Current Condition Onset Date Two years Current Complaints Worsening back pain History of Current Condition Pt is a 78 year old female presenting with progressive low back pain. Pt notes she has had lumbar issues off and on for 20 years, but that six years ago, she was caring for her life partner, who was going through an illness at the time, and strained her back. It has been bad since then, and specifically worsening over the last two years. Additionally, pt notes that she pulled something on Monday in her left posterior hip, which has been causing even more pain and difficulty in her getting around. Pt notes that if she is sitting or lying down, she doesn't feel too bad, but if she stays in a position too samir, she has a large increase in pain when she tries to get up and move around. Pt feels like she has substantially decreased in her level of activity tolerance and overall fitness level. Pt reports that she tries to walk one block every day, and frequently is unable to do so. Pt also has in the past swam 3x/week, and now has not been to the pool in two years. 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 The most prominent level of degenerative change is L3-L4, where there is a left lateral recess disc extrusion, with associated moderate to severe central canal narrowing. Moderate to severe bilateral neural foraminal narrowing is also seen at this level. Impression taken from Objective history of pt note from MIRACLE Arriaza on Prior Functional Status Baseline Function- ADL's Independent Baseline Function- Mobility Independent Baseline Function- Gait Walk multiple miles downtown Baseline Function- Recreation/Hobbies Swimming at community pool Current Functional Impairments (Reported) Functional Limitations- Mobility/Gait Pt unable to walk more than one block Functional Limitations- Recreation/ Pt has not gone to pool in [place] past two years. PT-OP-C Subjective Start: 11/28/18 17:41 Freq: Status: Active Protocol: Document 04/23/19 12:51 SP (Rec: 04/23/19 13:14 SP [id number]) OP-PT Subjective Patient Comments Patient Comments Pt commented LBP today, was cleaning out her closets over the weekend more over head reaching and using stool and today didnt' do her stretches before walked the dog she is watching and didn't realize how much believes stretches helped her. Would like to work on pain relief today. Pt stated has been trying the tennis ball over glut area and can't tolerate so doesn't perform. PT-OP-F Manual Assessment Start: 11/28/18 17:41 Freq: Status: Active Protocol: Document 02/21/19 10:30 DCW (Rec: 02/21/19 10:53 DCW [id number]) Manual Assessments Soft Tissue Assessment Soft Tissue Mobility Assessment Moderate tone and tenderness to palpation 2/4:Pain with wincing: bilateral piriformis Mild tone and tenderness to palpation 1/4: Complaint of pain: right QL, bilateral ITB PT-OP-K Range of Motion Start: 11/28/18 17:41 Freq: Status: Active Protocol: Document 02/21/19 10:30 DCW (Rec: 02/21/19 10:53 DCW [id number]) Lumbar Spine Range of Motion Lumbar Spine Active Degrees Testing Position Standing Flexion 62 Extension 13 Lateral Flexion Left 54 Lateral Flexion Right 53 ROM Limitations Pain Comments Extension limited secondary to pain PT-OP-L Special Tests Start: 11/28/18 17:41 Freq: Status: Active Protocol: Document 02/21/19 10:30 DCW (Rec: 02/21/19 10:53 DCW [id number]) Special Tests Lumbar Spine Special Tests Standing Flexion Test Results WNL Straight Leg Raise Test Results Negative Slump Test Results Negative Manual Traction Test Results Relief of pain Compression Test Results You can do that another 10 minutes Hip Special Tests Piriformis Test Results B tenderness at Piriformis PARAS Test Results Positive left ipsilateral lateral hip pain PT-OP-M Strength Start: 11/28/18 17:41 Freq: Status: Active Protocol: Document 02/21/19 10:30 DCW (Rec: 02/21/19 10:53 DCW [id number]) Trunk Strength Trunk Manual Muscle Testing Core Stabilization Pt able to properly contract TrA with verbal cues, unable to told more than 10 seconds MMT: 3+/5 Hip Strength Hip Manual Muscle Testing Right Flexion (L2) 4 Good Abduction 4 Good Adduction 4 Good External Rotation 4+ Good+ Internal Rotation 4+ Good+ Left Flexion (L2) 4 Good Abduction 3+ Fair+ Adduction 4- Good- External Rotation 4+ Good+ Internal Rotation 4+ Good+ Knee Strength Knee Manual Muscle Testing Right Flexion (S2) 4+ Good+ Extension (L3) 5 Normal Left Flexion (S2) 5 Normal Extension (L3) 5 Normal Ankle/Foot Strength Ankle and Foot Manual Muscle Testing Right Dorsiflexion (L4) 4 Good Plantarflexion (S1) 4 Good Left Dorsiflexion (L4) 4 Good Plantarflexion (S1) 4 Good PT-OP-Q Treatments Start: 11/28/18 17:41 Freq: Status: Active Protocol: Document 04/23/19 12:51 SP (Rec: 04/23/19 13:14 SP [id number]) Therapeutic Exercises Supine Exercises marches with TA Side bilateral Reps/Minutes 6 x4 Comments with half knee flexion bent knee fallout Supine Exercise Name hip abd Side bilateral Resistance TB Y TB Reps/Minutes 2x10 Standing Exercises step up downs Equipment Used 6 bottom step RHR step taps Equipment Used 6 step (bottom step), R HR x10 then SPC Reps/Minutes x10 each Comments cued slow pacing Other Exercises cat/camel Side bilateral Reps/Minutes x5 Comments quadruped; with mechanoreceptor stimulation with tapping over low back sit to stand Other Exercise Name sit to stand Reps/Minutes 8 x2 Comments with hip hinge Gait Training Gait Activity stair mgt Comments 4 steps RHR, SPC in LUE x4 sets step to initially (S) then step over step SBA Manual Therapy Treatment Soft Tissue Mobilization Piriformis Body Location B Piriformis Mobilization Type Myofascial Release,Strumming, Sustained Pressure Intensity/Depth Moderate Body Position Sidelying Comments without and with hip IR/ER movement in prone L/S and glutes Body Location B L/S and glutes Mobilization Type Cross-Friction,Myofascial Release,Sustained Pressure Intensity/Depth Moderate Body Position Sidelying PT-OP-R Modalities Start: 11/28/18 17:41 Freq: Status: Active Protocol: Document 04/18/19 11:18 HH (Rec: 04/18/19 12:05 HH [id number]) Hot Pack/Cold Pack Treatment Hot Pack Location Lumbar spine Patient Position Hooklying Treatment Duration (minutes) 10 Patient Tolerance Good PT-OP-T Assessment and Plan Start: 11/28/18 17:41 Freq: Status: Active Protocol: Document 04/23/19 12:51 SP (Rec: 04/23/19 13:14 SP [id number]) Physical Therapy Assessment Goals Four Impairment Core and hip weakness Short Term Goal (STG) Pt to demonstrate increased hip abduction bilaterally to 4 +/5 STG Duration 03/24/19 Hospitalist Medical Director Goal (LTG) Goal Met:Pt to exhibit core/ TrA MMT 4-/5 Advance to 4+/5 LTG Duration 04/24/19 Three Impairment Pt has not been able to swim for two years Snf Goal (LTG) Pt to return to community pool independently for exercise with no increased back pain 02/21/19:Pt still limited due to open wounds on arms LTG Duration 04/24/19 Two Impairment Pt only able to walk <one square block due to pain Short Term Goal (STG) Pt to ambulate 1/2 mile with no increased pain STG Duration 03/24/19 - Improving Hospitalist Medical Director Goal (LTG) Pt to ambulate one mile with no increased pain LTG Duration 04/24/19 - Improving One Impairment Pt does not have an appropriate home exercise program Short Term Goal (STG) Pt to be independent and compliant with an appropriate HEP STG Duration Met Assessment Summary Assessment SERVICE DELIVERY CONSULTANT suggested tennis ball STMs over glut region at wall with ability to unweight if needed for tolerance and patient stated better but still little uncomfortable. Responded better to seated Fig 4 hip IR/ ER stretch and helped into LB as well. Reviewed HEP Trans Ab HEP and added hooklying clam shell and progressed into standing step taps/step up/downs and stair mgt to allow for comfort on stairs at home, educated use of SPC in LUE while using RHR for safety wtih balance able to perform step over step (SBA ) slow pacing but more stable step to at this time w/out supervision. Pt reported no leg pain and LB feels better Physical Therapy Plan Frequency and Duration Frequency of Treatment 2x/Week Duration of Treatment 12 weeks Plan of Care Start Date 02/21/19 Plan of Care End Date 05/16/19 Therapeutic Interventions Therapeutic Interventions Aquatic Therapy,Home Exercise Program,Joint Mobilizations, Manual Therapy,Self-Care/Home Management,Soft Tissue Mobilization,Therapeutic Activities,Therapeutic Exercises Modalities Cold Pack/Ice Massage,Electric Stimulation,Hot Packs, Ultrasound Next Visit Focus/Plan Next Note Type Treatment Note Next Visit Plan Assess response to step taps/ up/downs and gait on 6 stairs to progress SLS balance with SPC support and provide confidence to stair mgt at home again. Possible add pool therapy to acclimate back to self pool HEP prior performed. STM, Stretching, Core strengthening, Estim as needed Trunk gentle ROM for HEP Hip flexor stretch
--- NOTE | 2019-04-26 10:40 | PT.OTN ---
Current Diagnoses Polyneuropathy, unspecified (04/26/19) Pain in right hip (04/26/19) Pain in left hip (04/26/19) Stiffness of right hip, not elsewhere classified (04/26/19) Stiffness of left hip, not elsewhere classified (04/26/19) Spondylolisthesis, lumbar region (04/26/19) Spondylosis without myelopathy or radiculopathy, lumbosacral region (04/26/19) Other intervertebral disc displacement, lumbar region (04/26/19) Muscle weakness (generalized) (04/26/19) Physical Therapy Treatment Note PT-OP-A Visit Information Start: 11/28/18 17:41 Freq: Status: Active Protocol: Document 04/26/19 09:54 SP (Rec: 04/26/19 10:42 SP [id number]) Out-Patient Physical Therapy Visit Information Visit Information Visit Type Treatment Note Visit Start Time 09:54 Visit Stop Time 10:40 Total Visit Minutes 46 Visit Number 23 Number of CARPENTRY INSTRUCTOR Visits 2 PT-OP-B Current Condition Start: 11/28/18 17:41 Freq: Status: Active Protocol: Document 11/28/18 09:45 DCW (Rec: 11/28/18 17:58 DCW [id number]) Current Condition History of Current Condition Onset Date Two years Current Complaints Worsening back pain History of Current Condition Pt is a 78 year old female presenting with progressive low back pain. Pt notes she has had lumbar issues off and on for 20 years, but that six years ago, she was caring for her life partner, who was going through an illness at the time, and strained her back. It has been bad since then, and specifically worsening over the last two years. Additionally, pt notes that she pulled something on Monday in her left posterior hip, which has been causing even more pain and difficulty in her getting around. Pt notes that if she is sitting or lying down, she doesn't feel too bad, but if she stays in a position too samir, she has a large increase in pain when she tries to get up and move around. Pt feels like she has substantially decreased in her level of activity tolerance and overall fitness level. Pt reports that she tries to walk one block every day, and frequently is unable to do so. Pt also has in the past swam 3x/week, and now has not been to the pool in two years. 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 The most prominent level of degenerative change is L3-L4, where there is a left lateral recess disc extrusion, with associated moderate to severe central canal narrowing. Moderate to severe bilateral neural foraminal narrowing is also seen at this level. Impression taken from Objective history of pt note from MIRACLE Arriaza on Prior Functional Status Baseline Function- ADL's Independent Baseline Function- Mobility Independent Baseline Function- Gait Walk multiple miles downtown Baseline Function- Recreation/Hobbies Swimming at [employer] pool Current Functional Impairments (Reported) Functional Limitations- Mobility/Gait Pt unable to walk more than one block Functional Limitations- Recreation/ Pt has not gone to pool in [place] past two years. PT-OP-C Subjective Start: 11/28/18 17:41 Freq: Status: Active Protocol: Document 04/26/19 09:54 SP (Rec: 04/26/19 10:42 SP [id number]) OP-PT Subjective Patient Comments Patient Comments Pt reported LB feeling little tweeked since did exercises this am, but much better since last time. Pt stated was hoping for no this pain this am but ok with less. PT-OP-F Manual Assessment Start: 11/28/18 17:41 Freq: Status: Active Protocol: Document 02/21/19 10:30 DCW (Rec: 02/21/19 10:53 DCW [id number]) Manual Assessments Soft Tissue Assessment Soft Tissue Mobility Assessment Moderate tone and tenderness to palpation 2/4:Pain with wincing: bilateral piriformis Mild tone and tenderness to palpation 1/4: Complaint of pain: right QL, bilateral ITB PT-OP-K Range of Motion Start: 11/28/18 17:41 Freq: Status: Active Protocol: Document 02/21/19 10:30 DCW (Rec: 02/21/19 10:53 DCW [id number]) Lumbar Spine Range of Motion Lumbar Spine Active Degrees Testing Position Standing Flexion 62 Extension 13 Lateral Flexion Left 54 Lateral Flexion Right 53 ROM Limitations Pain Comments Extension limited secondary to pain PT-OP-L Special Tests Start: 11/28/18 17:41 Freq: Status: Active Protocol: Document 02/21/19 10:30 DCW (Rec: 02/21/19 10:53 DCW [id number]) Special Tests Lumbar Spine Special Tests Standing Flexion Test Results WNL Straight Leg Raise Test Results Negative Slump Test Results Negative Manual Traction Test Results Relief of pain Compression Test Results You can do that another 10 minutes Hip Special Tests Piriformis Test Results B tenderness at Piriformis PARAS Test Results Positive left ipsilateral lateral hip pain PT-OP-M Strength Start: 11/28/18 17:41 Freq: Status: Active Protocol: Document 02/21/19 10:30 DCW (Rec: 02/21/19 10:53 DCW [id number]) Trunk Strength Trunk Manual Muscle Testing Core Stabilization Pt able to properly contract TrA with verbal cues, unable to told more than 10 seconds MMT: 3+/5 Hip Strength Hip Manual Muscle Testing Right Flexion (L2) 4 Good Abduction 4 Good Adduction 4 Good External Rotation 4+ Good+ Internal Rotation 4+ Good+ Left Flexion (L2) 4 Good Abduction 3+ Fair+ Adduction 4- Good- External Rotation 4+ Good+ Internal Rotation 4+ Good+ Knee Strength Knee Manual Muscle Testing Right Flexion (S2) 4+ Good+ Extension (L3) 5 Normal Left Flexion (S2) 5 Normal Extension (L3) 5 Normal Ankle/Foot Strength Ankle and Foot Manual Muscle Testing Right Dorsiflexion (L4) 4 Good Plantarflexion (S1) 4 Good Left Dorsiflexion (L4) 4 Good Plantarflexion (S1) 4 Good PT-OP-Q Treatments Start: 11/28/18 17:41 Freq: Status: Active Protocol: Document 04/26/19 09:54 SP (Rec: 04/26/19 10:42 SP [id number]) Cardio Equipment Recumbent Elliptical (Biodex) Duration (Minutes) 8 Resistance 2 Seat Position 6 Therapeutic Exercises Supine Exercises double knee to chest Side bilateral Reps/Minutes 30 x2 Comments cued PPT, stopped due to LBP marches with TA Side bilateral Reps/Minutes 10 x2 Comments with half knee flexion and cued PPT for no LBP (better), count so breathing lower trunk rotation Supine Exercise Name LTR Side bilateral Reps/Minutes x5 Comments cues PPT, review HEP Piriformis stretch Reps/Minutes 30 each LE Comments review HEP Standing Exercises step up downs Equipment Used 6 bottom step RHR Reps/Minutes x10 R and L Gait Training Gait Activity stair mgt Comments 4 steps RHR, SPC in LUE x2 sets step to initially (S) then step over step SBA PT-OP-R Modalities Start: 11/28/18 17:41 Freq: Status: Active Protocol: Document 04/26/19 09:54 SP (Rec: 04/26/19 10:42 SP [id number]) Electric Stimulation Electric Stimulation IFC Body Location LS Duration (Minutes) 10 Intensity 16 Target/Sweep Target High/Low High Patient Position Sidelying Combined With Heat/Cold Hot Pack Comments good tolerance, decreased LBP PT-OP-T Assessment and Plan Start: 11/28/18 17:41 Freq: Status: Active Protocol: Document 04/26/19 09:54 SP (Rec: 04/26/19 10:42 SP [id number]) Physical Therapy Assessment Goals Four Impairment Core and hip weakness Short Term Goal (STG) Pt to demonstrate increased hip abduction bilaterally to 4 +/5 STG Duration 03/24/19 Deli Cook Goal (LTG) Goal Met:Pt to exhibit core/ TrA MMT 4-/5 Advance to 4+/5 LTG Duration 04/24/19 Three Impairment Pt has not been able to swim for two years Senior Care Goal (LTG) Pt to return to community pool independently for exercise with no increased back pain 02/21/19:Pt still limited due to open wounds on arms LTG Duration 04/24/19 Two Impairment Pt only able to walk <one square block due to pain Short Term Goal (STG) Pt to ambulate 1/2 mile with no increased pain STG Duration 03/24/19 - Improving Deli Cook Goal (LTG) Pt to ambulate one mile with no increased pain LTG Duration 04/24/19 - Improving One Impairment Pt does not have an appropriate home exercise program Short Term Goal (STG) Pt to be independent and compliant with an appropriate HEP STG Duration Met Assessment Summary Assessment Tx focused on HEP review supine, standing and stair mgt for self confidence and strength progression. Didn't get to much standing and not balalnce today due to report of dizziness so modified tx. Pt request MHP and added IFC for decreased pain in LB. + feedback before left.It feels alot better, not sure why so dizzy today and does have some itchy throat. Gave purple sheet for more appts, only 2 left. Physical Therapy Plan Frequency and Duration Frequency of Treatment 2x/Week Duration of Treatment 12 weeks Plan of Care Start Date 02/21/19 Plan of Care End Date 05/16/19 Therapeutic Interventions Therapeutic Interventions Aquatic Therapy,Home Exercise Program,Joint Mobilizations, Manual Therapy,Self-Care/Home Management,Soft Tissue Mobilization,Therapeutic Activities,Therapeutic Exercises Modalities Cold Pack/Ice Massage,Electric Stimulation,Hot Packs, Ultrasound Next Visit Focus/Plan Next Note Type Treatment Note Next Visit Plan Next tx perform Apply maneuver for assist dizziness during transition of positions. Assess response to step taps/ up/downs and gait on 6 stairs to progress SLS balance with SPC support and provide confidence to stair mgt at home again. Possible add pool therapy to acclimate back to self pool HEP prior performed as long has no open wounds on arms and good right now. STM, Stretching, Core strengthening, Estim as needed Trunk gentle ROM for HEP Hip flexor stretch
--- NOTE | 2019-04-30 12:45 | PT.OPPOC ---
Physical, Occupational & Speech Therapy At [facility] Current Diagnoses Polyneuropathy, unspecified (04/30/19) Benign paroxysmal vertigo, left ear (04/30/19) Pain in right hip (04/30/19) Pain in left hip (04/30/19) Stiffness of right hip, not elsewhere classified (04/30/19) Stiffness of left hip, not elsewhere classified (04/30/19) Spondylolisthesis, lumbar region (04/30/19) Spondylosis without myelopathy or radiculopathy, lumbosacral region (04/30/19) Other intervertebral disc displacement, lumbar region (04/30/19) Muscle weakness (generalized) (04/30/19) Visit Care Team Role Provider Type Jorge L Dietz MD Primary Care Provider Physician Specialty: Family Practice Address: [address] [place] [address] [place], [address] Email: [email or web address] MIRACLE Arriaza Attending Provider Advanced Lang Interpreter Specialty: Pain Management Address: [address] [place] [address], [id number] Email: [email or web address] Plan Of Care PT-OP-T Assessment and Plan Start: 11/28/18 17:41 Freq: Status: Active Protocol: Document 04/30/19 12:00 DCW (Rec: 05/01/19 09:44 DCW [id number]) Physical Therapy Assessment Impairments Impairments Activity Tolerance,Balance, Functional Activities, Functional Mobility,Pain,ROM, Soft Tissue Mobility,Strength, Vestibular Goals Five Impairment Positive Roll test Cruise Coordinator Goal (LTG) Pt to exhibit negative positional testing bilaterally LTG Duration 06/29/19 Four Impairment Core and hip weakness Short Term Goal (STG) Pt to demonstrate increased hip abduction bilaterally to 4 +/5 STG Duration 05/29/19 Cruise Coordinator Goal (LTG) Goal Met:Pt to exhibit core/ TrA MMT 4-/5 Advance to 4+/5 LTG Duration 06/29/19 Three Impairment Pt has not been able to swim for two years Cruise Coordinator Goal (LTG) Pt to return to community pool independently for exercise with no increased back pain 02/21/19:Pt still limited due to open wounds on arms LTG Duration 06/29/19 Two Impairment Pt only able to walk <one square block due to pain Short Term Goal (STG) Pt to ambulate 1/2 mile with no increased pain STG Duration 03/24/19 - Improving Cruise Coordinator Goal (LTG) Pt to ambulate one mile with no increased pain LTG Duration 06/29/19 One Impairment Pt does not have an appropriate home exercise program Short Term Goal (STG) Pt to be independent and compliant with an appropriate HEP STG Duration Met Assessment Summary Assessment During roll testing, pt complained of vertigo and demonstrated ageotrophic nystagmus lasting 60+ seconds bilaterally, worse on the right side, consistent with diagnosis of left lateral canal BPPV, cupulolithiasis- type. Pt was treated with an ageotrophic Gufoni maneuver. Pt should undergo further positional testing, with CRM as needed. Pt should also continue with her ongoing physical therapy regarding her low back pain, weakness, and overall deconditioning. Physical Therapy Plan Frequency and Duration Frequency of Treatment 2x/Week Duration of Treatment 12 weeks Plan of Care Start Date 02/21/19 Plan of Care End Date 05/16/19 Therapeutic Interventions Therapeutic Interventions Aquatic Therapy,Home Exercise Program,Joint Mobilizations, Manual Therapy,Self-Care/Home Management,Soft Tissue Mobilization,Therapeutic Activities,Therapeutic Exercises Modalities Cold Pack/Ice Massage,Electric Stimulation,Hot Packs, Ultrasound Next Visit Focus/Plan Next Note Type Treatment Note Next Visit Plan Further positional testing and CRM as indicated Assess response to step taps/ up/downs and gait on 6 stairs to progress SLS balance with SPC support and provide confidence to stair mgt at home again. Possible add pool therapy to acclimate back to self pool HEP prior performed as long has no open wounds on arms and good right now. STM, Stretching, Core strengthening, Estim as needed Trunk gentle ROM for HEP Hip flexor stretch Plan of Care Dates Plan of Care Start Date 02/21/19 Plan of Care End Date 05/16/19 Electronically Signed by: Geremias Adam, PT 05/01/19 1754 Please Sign and Return: I have reviewed this Plan of Care and certify that the skilled therapy services above are required to meet the patient?s needs. Physician Signature Date Printed Name and Credentials Clinical Instructor Signature Printed Name and Credentials
--- NOTE | 2019-04-30 12:45 | PT.OTN ---
Current Diagnoses Polyneuropathy, unspecified (04/30/19) Benign paroxysmal vertigo, left ear (04/30/19) Pain in right hip (04/30/19) Pain in left hip (04/30/19) Stiffness of right hip, not elsewhere classified (04/30/19) Stiffness of left hip, not elsewhere classified (04/30/19) Spondylolisthesis, lumbar region (04/30/19) Spondylosis without myelopathy or radiculopathy, lumbosacral region (04/30/19) Other intervertebral disc displacement, lumbar region (04/30/19) Muscle weakness (generalized) (04/30/19) Physical Therapy Treatment Note PT-OP-A Visit Information Start: 11/28/18 17:41 Freq: Status: Active Protocol: Document 04/30/19 12:00 DCW (Rec: 04/30/19 17:55 DCW [id number]) Out-Patient Physical Therapy Visit Information Visit Information Visit Type Progress Note Visit Start Time 12:00 Visit Stop Time 12:55 Total Visit Minutes 55 Visit Number 24 Number of WINDOW TINTER Visits 0 Evaluation Information Evaluation Date 11/28/18 PT-OP-B Current Condition Start: 11/28/18 17:41 Freq: Status: Active Protocol: Document 04/30/19 12:00 DCW (Rec: 04/30/19 17:55 DCW [id number]) Current Condition History of Current Condition Onset Date Two years Current Complaints Worsening back pain History of Current Condition Pt is a 78 year old female presenting with progressive low back pain. Pt notes she has had lumbar issues off and on for 20 years, but that six years ago, she was caring for her life partner, who was going through an illness at the time, and strained her back. It has been bad since then, and specifically worsening over the last two years. Additionally, pt notes that she pulled something on Monday in her left posterior hip, which has been causing even more pain and difficulty in her getting around. Pt notes that if she is sitting or lying down, she doesn't feel too bad, but if she stays in a position too samir, she has a large increase in pain when she tries to get up and move around. Pt feels like she has substantially decreased in her level of activity tolerance and overall fitness level. Pt reports that she tries to walk one block every day, and frequently is unable to do so. Pt also has in the past swam 3x/week, and now has not been to the pool in two years. ADDENDUM 04/30/19: Pt has a new referral for eval/treat of ongoing dizziness. Pt notes that dizziness occurs in episodes lasting seconds, and is brought on by lying back in bed or bending over to harness the dog. 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 The most prominent level of degenerative change is L3-L4, where there is a left lateral recess disc extrusion, with associated moderate to severe central canal narrowing. Moderate to severe bilateral neural foraminal narrowing is also seen at this level. Impression taken from Objective history of pt note from MIRACLE Arriaza on Prior Functional Status Baseline Function- ADL's Independent Baseline Function- Mobility Independent Baseline Function- Gait Walk multiple miles downtown Baseline Function- Recreation/Hobbies Swimming at [place] pool Current Functional Impairments (Reported) Functional Limitations- Mobility/Gait Pt unable to walk more than one block Functional Limitations- Recreation/ Pt has not gone to pool in [place] past two years. PT-OP-C Subjective Start: 11/28/18 17:41 Freq: Status: Active Protocol: Document 04/30/19 12:00 DCW (Rec: 04/30/19 17:55 DCW [id number]) OP-PT Subjective Patient Comments Patient Comments Pt's dizziness has returned recently, was limiting her participation in therapy last week, so she would finally like to have it checked out. PT-OP-F Manual Assessment Start: 11/28/18 17:41 Freq: Status: Active Protocol: Document 02/21/19 10:30 DCW (Rec: 02/21/19 10:53 DCW [id number]) Manual Assessments Soft Tissue Assessment Soft Tissue Mobility Assessment Moderate tone and tenderness to palpation 2/4:Pain with wincing: bilateral piriformis Mild tone and tenderness to palpation 1/4: Complaint of pain: right QL, bilateral ITB PT-OP-K Range of Motion Start: 11/28/18 17:41 Freq: Status: Active Protocol: Document 02/21/19 10:30 DCW (Rec: 12/12/19 10:53 DCW [id number]) Lumbar Spine Range of Motion Lumbar Spine Active Degrees Testing Position Standing Flexion 62 Extension 13 Lateral Flexion Left 54 Lateral Flexion Right 53 ROM Limitations Pain Comments Extension limited secondary to pain PT-OP-L Special Tests Start: 11/28/18 17:41 Freq: Status: Active Protocol: Document 02/21/19 10:30 DCW (Rec: 02/21/19 10:53 DCW [id number]) Special Tests Lumbar Spine Special Tests Standing Flexion Test Results WNL Straight Leg Raise Test Results Negative Slump Test Results Negative Manual Traction Test Results Relief of pain Compression Test Results You can do that another 10 minutes Hip Special Tests Piriformis Test Results B tenderness at Piriformis PARAS Test Results Positive left ipsilateral lateral hip pain PT-OP-M Strength Start: 11/28/18 17:41 Freq: Status: Active Protocol: Document 02/21/19 10:30 DCW (Rec: 02/21/19 10:53 DCW [id number]) Trunk Strength Trunk Manual Muscle Testing Core Stabilization Pt able to properly contract TrA with verbal cues, unable to told more than 10 seconds MMT: 3+/5 Hip Strength Hip Manual Muscle Testing Right Flexion (L2) 4 Good Abduction 4 Good Adduction 4 Good External Rotation 4+ Good+ Internal Rotation 4+ Good+ Left Flexion (L2) 4 Good Abduction 3+ Fair+ Adduction 4- Good- External Rotation 4+ Good+ Internal Rotation 4+ Good+ Knee Strength Knee Manual Muscle Testing Right Flexion (S2) 4+ Good+ Extension (L3) 5 Normal Left Flexion (S2) 5 Normal Extension (L3) 5 Normal Ankle/Foot Strength Ankle and Foot Manual Muscle Testing Right Dorsiflexion (L4) 4 Good Plantarflexion (S1) 4 Good Left Dorsiflexion (L4) 4 Good Plantarflexion (S1) 4 Good PT-OP-O Vestibular Start: 04/30/19 17:56 Freq: Status: Active Protocol: Document 04/30/19 12:00 DCW (Rec: 05/01/19 09:44 DCW [id number]) Vestibular Assessment Visual Testing Smooth Pursuits Horizontal Questionable saccadic movement when following left Smooth Pursuits Vertical WNL Saccades Horizontal WNL Positional Testing Rush-Hallpike Negative Left,Negative Right Rolling Test Positive Left,Positive Right,> 60 Seconds Comments Vestibular Comments Ageotropic nystagmus with roll test, continued entire time pt was positioned PT-OP-Q Treatments Start: 11/28/18 17:41 Freq: Status: Active Protocol: Document 04/30/19 12:00 DCW (Rec: 05/01/19 09:44 DCW [id number]) Canalithic Repositioning BPPV Treatment Gufoni Affected Canal(s) L Lateral? Reps x1 Comments PT Aide assisted with pt positioning PT-OP-R Modalities Start: 11/28/18 17:41 Freq: Status: Active Protocol: Document 04/30/19 12:00 DCW (Rec: 04/30/19 17:51 DCW [id number]) Hot Pack/Cold Pack Treatment Hot Pack Location Lumbar spine Patient Position Sidelying Treatment Duration (minutes) 10 Patient Tolerance Good PT-OP-T Assessment and Plan Start: 11/28/18 17:41 Freq: Status: Active Protocol: Document 04/30/19 12:00 DCW (Rec: 05/01/19 09:44 DCW [id number]) Physical Therapy Assessment Impairments Impairments Activity Tolerance,Balance, Functional Activities, Functional Mobility,Pain,ROM, Soft Tissue Mobility,Strength, Vestibular Goals Five Impairment Positive Roll test Oven Tender Goal (LTG) Pt to exhibit negative positional testing bilaterally LTG Duration 06/29/19 Four Impairment Core and hip weakness Short Term Goal (STG) Pt to demonstrate increased hip abduction bilaterally to 4 +/5 STG Duration 05/29/19 Shelter Goal (LTG) Goal Met:Pt to exhibit core/ TrA MMT 4-/5 Advance to 4+/5 LTG Duration 06/29/19 Three Impairment Pt has not been able to swim for two years Oven Tender Goal (LTG) Pt to return to community pool independently for exercise with no increased back pain 02/21/19:Pt still limited due to open wounds on arms LTG Duration 06/29/19 Two Impairment Pt only able to walk <one square block due to pain Short Term Goal (STG) Pt to ambulate 1/2 mile with no increased pain STG Duration 03/24/19 - Improving Oven Tender Goal (LTG) Pt to ambulate one mile with no increased pain LTG Duration 06/29/19 One Impairment Pt does not have an appropriate home exercise program Short Term Goal (STG) Pt to be independent and compliant with an appropriate HEP STG Duration Met Assessment Summary Assessment During roll testing, pt complained of vertigo and demonstrated ageotrophic nystagmus lasting 60+ seconds bilaterally, worse on the right side, consistent with diagnosis of left lateral canal BPPV, cupulolithiasis- type. Pt was treated with an ageotrophic Gufoni maneuver. Pt should undergo further positional testing, with CRM as needed. Pt should also continue with her ongoing physical therapy regarding her low back pain, weakness, and overall deconditioning. Physical Therapy Plan Frequency and Duration Frequency of Treatment 2x/Week Duration of Treatment 12 weeks Plan of Care Start Date 02/21/19 Plan of Care End Date 05/16/19 Therapeutic Interventions Therapeutic Interventions Aquatic Therapy,Home Exercise Program,Joint Mobilizations, Manual Therapy,Self-Care/Home Management,Soft Tissue Mobilization,Therapeutic Activities,Therapeutic Exercises Modalities Cold Pack/Ice Massage,Electric Stimulation,Hot Packs, Ultrasound Next Visit Focus/Plan Next Note Type Treatment Note Next Visit Plan Further positional testing and CRM as indicated Assess response to step taps/ up/downs and gait on 6 stairs to progress SLS balance with SPC support and provide confidence to stair mgt at home again. Possible add pool therapy to acclimate back to self pool HEP prior performed as long has no open wounds on arms and good right now. STM, Stretching, Core strengthening, Estim as needed Trunk gentle ROM for HEP Hip flexor stretch
--- NOTE | 2019-05-03 15:20 | PT.OTN ---
Current Diagnoses Polyneuropathy, unspecified (05/03/19) Benign paroxysmal vertigo, left ear (05/03/19) Pain in right hip (05/03/19) Pain in left hip (05/03/19) Stiffness of right hip, not elsewhere classified (05/03/19) Stiffness of left hip, not elsewhere classified (05/03/19) Spondylolisthesis, lumbar region (05/03/19) Spondylosis without myelopathy or radiculopathy, lumbosacral region (05/03/19) Other intervertebral disc displacement, lumbar region (05/03/19) Muscle weakness (generalized) (05/03/19) Physical Therapy Treatment Note PT-OP-A Visit Information Start: 11/28/18 17:41 Freq: Status: Active Protocol: Document 05/03/19 14:35 HH (Rec: 05/03/19 15:20 HH [id number]) Out-Patient Physical Therapy Visit Information Visit Information Visit Type Treatment Note Visit Start Time 14:35 Visit Stop Time 15:20 Total Visit Minutes 45 Visit Number 25 Number of BRAZING FURNACE OPERATOR Visits 0 PT-OP-B Current Condition Start: 11/28/18 17:41 Freq: Status: Active Protocol: Document 04/30/19 12:00 DCW (Rec: 04/30/19 17:55 DCW [id number]) Current Condition History of Current Condition Onset Date Two years Current Complaints Worsening back pain History of Current Condition Pt is a 78 year old female presenting with progressive low back pain. Pt notes she has had lumbar issues off and on for 20 years, but that six years ago, she was caring for her life partner, who was going through an illness at the time, and strained her back. It has been bad since then, and specifically worsening over the last two years. Additionally, pt notes that she pulled something on Monday in her left posterior hip, which has been causing even more pain and difficulty in her getting around. Pt notes that if she is sitting or lying down, she doesn't feel too bad, but if she stays in a position too samir, she has a large increase in pain when she tries to get up and move around. Pt feels like she has substantially decreased in her level of activity tolerance and overall fitness level. Pt reports that she tries to walk one block every day, and frequently is unable to do so. Pt also has in the past swam 3x/week, and now has not been to the pool in two years. ADDENDUM 04/30/19: Pt has a new referral for eval/treat of ongoing dizziness. Pt notes that dizziness occurs in episodes lasting seconds, and is brought on by lying back in bed or bending over to harness the dog. 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 The most prominent level of degenerative change is L3-L4, where there is a left lateral recess disc extrusion, with associated moderate to severe central canal narrowing. Moderate to severe bilateral neural foraminal narrowing is also seen at this level. Impression taken from Objective history of pt note from MIRAC[facility] Arriaza on Prior Functional Status Baseline Function- ADL's Independent Baseline Function- Mobility Independent Baseline Function- Gait Walk multiple miles downtown Baseline Function- Recreation/Hobbies Swimming at community pool Current Functional Impairments (Reported) Functional Limitations- Mobility/Gait Pt unable to walk more than one block Functional Limitations- Recreation/ Pt has not gone to pool in [place] past two years. PT-OP-C Subjective Start: 11/28/18 17:41 Freq: Status: Active Protocol: Document 05/03/19 14:35 HH (Rec: 05/03/19 15:20 HH [id number]) OP-PT Subjective Patient Comments Patient Comments I feel very good today because im well rested since this monday because i dont have to take care of my friend 's dog. I slept 8-10 hrs the past few days. I did my home exercises today too. Patient Reported Progress Improving PT-OP-F Manual Assessment Start: 11/28/18 17:41 Freq: Status: Active Protocol: Document 02/21/19 10:30 DCW (Rec: 02/21/19 10:53 DCW [id number]) Manual Assessments Soft Tissue Assessment Soft Tissue Mobility Assessment Moderate tone and tenderness to palpation 2/4:Pain with wincing: bilateral piriformis Mild tone and tenderness to palpation 1/4: Complaint of pain: right QL, bilateral ITB PT-OP-K Range of Motion Start: 11/28/18 17:41 Freq: Status: Active Protocol: Document 02/21/19 10:30 DCW (Rec: 02/21/19 10:53 DCW [id number]) Lumbar Spine Range of Motion Lumbar Spine Active Degrees Testing Position Standing Flexion 62 Extension 13 Lateral Flexion Left 54 Lateral Flexion Right 53 ROM Limitations Pain Comments Extension limited secondary to pain PT-OP-L Special Tests Start: 11/28/18 17:41 Freq: Status: Active Protocol: Document 02/21/19 10:30 DCW (Rec: 02/21/19 10:53 DCW [id number]) Special Tests Lumbar Spine Special Tests Standing Flexion Test Results WNL Straight Leg Raise Test Results Negative Slump Test Results Negative Manual Traction Test Results Relief of pain Compression Test Results You can do that another 10 minutes Hip Special Tests Piriformis Test Results B tenderness at Piriformis PARAS Test Results Positive left ipsilateral lateral hip pain PT-OP-M Strength Start: 11/28/18 17:41 Freq: Status: Active Protocol: Document 02/21/19 10:30 DCW (Rec: 02/21/19 10:53 DCW [id number]) Trunk Strength Trunk Manual Muscle Testing Core Stabilization Pt able to properly contract TrA with verbal cues, unable to told more than 10 seconds MMT: 3+/5 Hip Strength Hip Manual Muscle Testing Right Flexion (L2) 4 Good Abduction 4 Good Adduction 4 Good External Rotation 4+ Good+ Internal Rotation 4+ Good+ Left Flexion (L2) 4 Good Abduction 3+ Fair+ Adduction 4- Good- External Rotation 4+ Good+ Internal Rotation 4+ Good+ Knee Strength Knee Manual Muscle Testing Right Flexion (S2) 4+ Good+ Extension (L3) 5 Normal Left Flexion (S2) 5 Normal Extension (L3) 5 Normal Ankle/Foot Strength Ankle and Foot Manual Muscle Testing Right Dorsiflexion (L4) 4 Good Plantarflexion (S1) 4 Good Left Dorsiflexion (L4) 4 Good Plantarflexion (S1) 4 Good PT-OP-O Vestibular Start: 04/30/19 17:56 Freq: Status: Active Protocol: Document 04/30/19 12:00 DCW (Rec: 05/01/19 09:44 DCW [id number]) Vestibular Assessment Visual Testing Smooth Pursuits Horizontal Questionable saccadic movement when following left Smooth Pursuits Vertical WNL Saccades Horizontal WNL Positional Testing Dum[place]-Hallpike Negative Left,Negative Right Rolling Test Positive Left,Positive Right,> 60 Seconds Comments Vestibular Comments Ageotropic nystagmus with roll test, continued entire time pt was positioned PT-OP-Q Treatments Start: 11/28/18 17:41 Freq: Status: Active Protocol: Document 05/03/19 14:35 HH (Rec: 05/03/19 15:20 [id number]) Cardio Equipment Recumbent Elliptical (Biodex) Duration (Minutes) 8 Resistance 1-5 Seat Position 6 Gym Equipment Shuttle Recovery Unilateral Squats Resistance 37# Shuttle Recovery Platform Stable Reps/Time 8 x 2 Bilateral Squats Resistance #50 Shuttle Recovery Platform Stable Reps/Time 8 x2 Shuttle Rebound red Reps/Duration 4 mins Comments focus on ankle rock Therapeutic Exercises Supine Exercises SLR Supine Exercise Name passive SLR Side left Reps/Minutes 8 mins PT-OP-R Modalities Start: 11/28/18 17:41 Freq: Status: Active Protocol: Document 05/03/19 14:35 HH (Rec: 05/03/19 15:20 HH [id number]) Hot Pack/Cold Pack Treatment Hot Pack Location low back Patient Position Hooklying Treatment Duration (minutes) 10 Patient Tolerance Good PT-OP-T Assessment and Plan Start: 11/28/18 17:41 Freq: Status: Active Protocol: Document 05/03/19 14:35 HH (Rec: 05/03/19 15:20 [id number]) Physical Therapy Assessment Goals Five Impairment Positive Roll test Penitentiary Goal (LTG) Pt to exhibit negative positional testing bilaterally LTG Duration 06/29/19 Four Impairment Core and hip weakness Short Term Goal (STG) Pt to demonstrate increased hip abduction bilaterally to 4 +/5 STG Duration 05/29/19 Penitentiary Goal (LTG) Goal Met:Pt to exhibit core/ TrA MMT 4-/5 Advance to 4+/5 LTG Duration 06/29/19 Three Impairment Pt has not been able to swim for two years Laboratory Associate Goal (LTG) Pt to return to community pool independently for exercise with no increased back pain 02/21/19:Pt still limited due to open wounds on arms LTG Duration 06/29/19 Two Impairment Pt only able to walk <one square block due to pain Short Term Goal (STG) Pt to ambulate 1/2 mile with no increased pain STG Duration 03/24/19 - Improving Laboratory Associate Goal (LTG) Pt to ambulate one mile with no increased pain LTG Duration 06/29/19 One Impairment Pt does not have an appropriate home exercise program Short Term Goal (STG) Pt to be independent and compliant with an appropriate HEP STG Duration Met Assessment Summary Assessment Pt showed increased activity tolerance today without c/o discomfort. SLR test shows +ve with reproduced back pain on L side.Pt felt good after SLR. Physical Therapy Plan Next Visit Focus/Plan Next Note Type Treatment Note Next Visit Plan reassess pt;s radiating leg pain on L after SLR Further positional testing and CRM as indicated Assess response to step taps/ up/downs and gait on 6 stairs to progress SLS balance with SPC support and provide confidence to stair mgt at home again. Possible add pool therapy to acclimate back to self pool HEP prior performed as long has no open wounds on arms and good right now. STM, Stretching, Core strengthening, Estim as needed Trunk gentle ROM for HEP Hip flexor stretch
--- NOTE | 2019-05-14 14:21 | PT-OP ANOTE ---
Pt called or left message canceling today's appt, had surgery about a week ago and doesn't think can make it in. WIRE INSPECTOR called patient and left message regarding received feedback about today's appt and reminded of next appt on 05/17/19 at 1345.
--- NOTE | 2019-05-17 16:37 | PT.OTN ---
Current Diagnoses Polyneuropathy, unspecified (05/17/19) Benign paroxysmal vertigo, left ear (05/17/19) Pain in right hip (05/17/19) Pain in left hip (05/17/19) Stiffness of right hip, not elsewhere classified (05/17/19) Stiffness of left hip, not elsewhere classified (05/17/19) Spondylolisthesis, lumbar region (05/17/19) Spondylosis without myelopathy or radiculopathy, lumbosacral region (05/17/19) Other intervertebral disc displacement, lumbar region (05/17/19) Muscle weakness (generalized) (05/17/19) Physical Therapy Treatment Note PT-OP-A Visit Information Start: 11/28/18 17:41 Freq: Status: Active Protocol: Document 05/17/19 13:47 HH (Rec: 05/17/19 16:37 HH [id number]) Out-Patient Physical Therapy Visit Information Visit Information Visit Type Treatment Note Visit Start Time 13:47 Visit Stop Time 14:37 Total Visit Minutes 50 Visit Number 26 Number of ICER MACHINE OPERATOR Visits 0 PT-OP-B Current Condition Start: 11/28/18 17:41 Freq: Status: Active Protocol: Document 04/30/19 12:00 DCW (Rec: 04/30/19 17:55 DCW [id number]) Current Condition History of Current Condition Onset Date Two years Current Complaints Worsening back pain History of Current Condition Pt is a 78 year old female presenting with progressive low back pain. Pt notes she has had lumbar issues off and on for 20 years, but that six years ago, she was caring for her life partner, who was going through an illness at the time, and strained her back. It has been bad since then, and specifically worsening over the last two years. Additionally, pt notes that she pulled something on Monday in her left posterior hip, which has been causing even more pain and difficulty in her getting around. Pt notes that if she is sitting or lying down, she doesn't feel too bad, but if she stays in a position too samir, she has a large increase in pain when she tries to get up and move around. Pt feels like she has substantially decreased in her level of activity tolerance and overall fitness level. Pt reports that she tries to walk one block every day, and frequently is unable to do so. Pt also has in the past swam 3x/week, and now has not been to the pool in two years. ADDENDUM 04/30/19: Pt has a new referral for eval/treat of ongoing dizziness. Pt notes that dizziness occurs in episodes lasting seconds, and is brought on by lying back in bed or bending over to harness the dog. 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 The most prominent level of degenerative change is L3-L4, where there is a left lateral recess disc extrusion, with associated moderate to severe central canal narrowing. Moderate to severe bilateral neural foraminal narrowing is also seen at this level. Impression taken from Objective history of pt note from MIRACLE Arriaza on Prior Functional Status Baseline Function- ADL's Independent Baseline Function- Mobility Independent Baseline Function- Gait Walk multiple miles downtown Baseline Function- Recreation/Hobbies Swimming at community pool Current Functional Impairments (Reported) Functional Limitations- Mobility/Gait Pt unable to walk more than one block Functional Limitations- Recreation/ Pt has not gone to pool in [place] past two years. PT-OP-C Subjective Start: 11/28/18 17:41 Freq: Status: Active Protocol: Document 05/17/19 13:47 HH (Rec: 05/17/19 16:37 HH [id number]) OP-PT Subjective Patient Comments Patient Comments I feel pretty good today. I had skin cancer cell removal on my forehead last week. I also spoke to Dr. Wilburn and decided to have laser therapy at my back to burn the nerve ending. Cassidy done that before. I forgot the exact date but i will miss two appointments. I also have been having more L ankle pain that makes me need to use a cane. Patient Reported Progress Same PT-OP-F Manual Assessment Start: 11/28/18 17:41 Freq: Status: Active Protocol: Document 02/21/19 10:30 DCW (Rec: 02/21/19 10:53 DCW [id number]) Manual Assessments Soft Tissue Assessment Soft Tissue Mobility Assessment Moderate tone and tenderness to palpation 2/4:Pain with wincing: bilateral piriformis Mild tone and tenderness to palpation 1/4: Complaint of pain: right QL, bilateral ITB PT-OP-K Range of Motion Start: 11/28/18 17:41 Freq: Status: Active Protocol: Document 02/21/19 10:30 DCW (Rec: 02/21/19 10:53 DCW [id number]) Lumbar Spine Range of Motion Lumbar Spine Active Degrees Testing Position Standing Flexion 62 Extension 13 Lateral Flexion Left 54 Lateral Flexion Right 53 ROM Limitations Pain Comments Extension limited secondary to pain PT-OP-L Special Tests Start: 11/28/18 17:41 Freq: Status: Active Protocol: Document 02/21/19 10:30 DCW (Rec: 02/21/19 10:53 DCW [id number]) Special Tests Lumbar Spine Special Tests Standing Flexion Test Results WNL Straight Leg Raise Test Results Negative Slump Test Results Negative Manual Traction Test Results Relief of pain Compression Test Results You can do that another 10 minutes Hip Special Tests Piriformis Test Results B tenderness at Piriformis PARAS Test Results Positive left ipsilateral lateral hip pain PT-OP-M Strength Start: 11/28/18 17:41 Freq: Status: Active Protocol: Document 02/21/19 10:30 DCW (Rec: 02/21/19 10:53 DCW [id number]) Trunk Strength Trunk Manual Muscle Testing Core Stabilization Pt able to properly contract TrA with verbal cues, unable to told more than 10 seconds MMT: 3+/5 Hip Strength Hip Manual Muscle Testing Right Flexion (L2) 4 Good Abduction 4 Good Adduction 4 Good External Rotation 4+ Good+ Internal Rotation 4+ Good+ Left Flexion (L2) 4 Good Abduction 3+ Fair+ Adduction 4- Good- External Rotation 4+ Good+ Internal Rotation 4+ Good+ Knee Strength Knee Manual Muscle Testing Right Flexion (S2) 4+ Good+ Extension (L3) 5 Normal Left Flexion (S2) 5 Normal Extension (L3) 5 Normal Ankle/Foot Strength Ankle and Foot Manual Muscle Testing Right Dorsiflexion (L4) 4 Good Plantarflexion (S1) 4 Good Left Dorsiflexion (L4) 4 Good Plantarflexion (S1) 4 Good PT-OP-O Vestibular Start: 04/30/19 17:56 Freq: Status: Active Protocol: Document 04/30/19 12:00 DCW (Rec: 05/01/19 09:44 DCW [id number]) Vestibular Assessment Visual Testing Smooth Pursuits Horizontal Questionable saccadic movement when following left Smooth Pursuits Vertical WNL Saccades Horizontal WNL Positional Testing [place]-Hallpike Negative Left,Negative Right Rolling Test Positive Left,Positive Right,> 60 Seconds Comments Vestibular Comments Ageotropic nystagmus with roll test, continued entire time pt was positioned PT-OP-Q Treatments Start: 11/28/18 17:41 Freq: Status: Active Protocol: Document 05/17/19 13:47 HH (Rec: 05/17/19 16:37 [id number]) Cardio Equipment Recumbent Stepper (Sci-Fit) Duration (Minutes) 6 Therapeutic Exercises Supine Exercises L ankle circles Side left Reps/Minutes 5 x 5 Comments pain noted during eversion Manual Therapy Treatment Soft Tissue Mobilization L CFL Mobilization Type Sustained Pressure,Trigger Point Release Intensity/Depth Moderate Body Position Supine Comments mod pain reported peroneal Body Location L Mobilization Type Sustained Pressure,Trigger Point Release Intensity/Depth Moderate Body Position Supine Comments minimal pain reported L ATFL Body Location L Mobilization Type Sustained Pressure,Trigger Point Release Intensity/Depth Moderate Body Position Supine Comments with ankle circles significant pain reported PT-OP-R Modalities Start: 11/28/18 17:41 Freq: Status: Active Protocol: Document 05/17/19 13:47 HH (Rec: 05/17/19 16:37 [id number]) Hot Pack/Cold Pack Treatment Hot Pack Location low back Patient Position Hooklying Treatment Duration (minutes) 10 Patient Tolerance Good PT-OP-T Assessment and Plan Start: 11/28/18 17:41 Freq: Status: Active Protocol: Document 05/17/19 13:47 HH (Rec: 05/17/19 16:37 [id number]) Physical Therapy Assessment Goals Five Impairment Positive Roll test Horizontal Boring Mill Set Up Operator Goal (LTG) Pt to exhibit negative positional testing bilaterally LTG Duration 06/29/19 Four Impairment Core and hip weakness Short Term Goal (STG) Pt to demonstrate increased hip abduction bilaterally to 4 +/5 STG Duration 05/29/19 Horizontal Boring Mill Set Up Operator Goal (LTG) Goal Met:Pt to exhibit core/ TrA MMT 4-/5 Advance to 4+/5 LTG Duration 06/29/19 Three Impairment Pt has not been able to swim for two years Halfway Goal (LTG) Pt to return to community pool independently for exercise with no increased back pain 02/21/19:Pt still limited due to open wounds on arms LTG Duration 4/18/20 Two Impairment Pt only able to walk <one square block due to pain Short Term Goal (STG) Pt to ambulate 1/2 mile with no increased pain STG Duration 03/24/19 - Improving Horizontal Boring Mill Set Up Operator Goal (LTG) Pt to ambulate one mile with no increased pain LTG Duration 06/29/19 One Impairment Pt does not have an appropriate home exercise program Short Term Goal (STG) Pt to be independent and compliant with an appropriate HEP STG Duration Met Assessment Summary Assessment Pt has new onset of L ankle pain and she does not recall any significant injury. Her pain mostly located at ATFL and CFL region and pain during active eversion. Pt might suffer repetitive motions/ pressure from WB through lateral side of the foot. Physical Therapy Plan Next Visit Focus/Plan Next Note Type Treatment Note Next Visit Plan reassess pt;s L ankle pain Further positional testing and CRM as indicated Assess response to step taps/ up/downs and gait on 6 stairs to progress SLS balance with SPC support and provide confidence to stair mgt at home again. Possible add pool therapy to acclimate back to self pool HEP prior performed as long has no open wounds on arms and good right now. STM, Stretching, Core strengthening, Estim as needed Trunk gentle ROM for HEP Hip flexor stretch
--- NOTE | 2019-07-09 12:58 | PT-OP ANOTE ---
Left message on patient's voicemail about return to therapy as the clinic slowly opens back up following CDC recommendations. Pt will call back if interested about scheduling further appointments.
--- NOTE | 2019-07-24 16:04 | PT.OTN ---
Current Diagnoses Polyneuropathy, unspecified (07/24/19) Benign paroxysmal vertigo, left ear (07/24/19) Pain in right hip (07/24/19) Pain in left hip (07/24/19) Stiffness of right hip, not elsewhere classified (07/24/19) Stiffness of left hip, not elsewhere classified (07/24/19) Spondylolisthesis, lumbar region (07/24/19) Spondylosis without myelopathy or radiculopathy, lumbosacral region (07/24/19) Other intervertebral disc displacement, lumbar region (07/24/19) Muscle weakness (generalized) (07/24/19) Physical Therapy Treatment Note PT-OP-A Visit Information Start: 11/28/18 17:41 Freq: Status: Active Protocol: Document 07/24/19 15:15 DCW (Rec: 07/24/19 16:03 DCW [id number]) Out-Patient Physical Therapy Visit Information Visit Information Visit Type Progress Note Visit Start Time 15:15 Visit Stop Time 16:05 Total Visit Minutes 50 Visit Number 27 Number of SUGAR REFINER Visits 0 Evaluation Information Evaluation Date 11/28/18 PT-OP-B Current Condition Start: 11/28/18 17:41 Freq: Status: Active Protocol: Document 04/30/19 12:00 DCW (Rec: 04/30/19 17:55 DCW [id number]) Current Condition History of Current Condition Onset Date Two years Current Complaints Worsening back pain History of Current Condition Pt is a 78 year old female presenting with progressive low back pain. Pt notes she has had lumbar issues off and on for 20 years, but that six years ago, she was caring for her life partner, who was going through an illness at the time, and strained her back. It has been bad since then, and specifically worsening over the last two years. Additionally, pt notes that she pulled something on Monday in her left posterior hip, which has been causing even more pain and difficulty in her getting around. Pt notes that if she is sitting or lying down, she doesn't feel too bad, but if she stays in a position too samir, she has a large increase in pain when she tries to get up and move around. Pt feels like she has substantially decreased in her level of activity tolerance and overall fitness level. Pt reports that she tries to walk one block every day, and frequently is unable to do so. Pt also has in the past swam 3x/week, and now has not been to the pool in two years. ADDENDUM 04/30/19: Pt has a new referral for eval/treat of ongoing dizziness. Pt notes that dizziness occurs in episodes lasting seconds, and is brought on by lying back in bed or bending over to harness the dog. 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 The most prominent level of degenerative change is L3-L4, where there is a left lateral recess disc extrusion, with associated moderate to severe central canal narrowing. Moderate to severe bilateral neural foraminal narrowing is also seen at this level. Impression taken from Objective history of pt note from MIRACLE Arriaza on Prior Functional Status Baseline Function- ADL's Independent Baseline Function- Mobility Independent Baseline Function- Gait Walk multiple miles downtown Baseline Function- Recreation/Hobbies Swimming at community pool Current Functional Impairments (Reported) Functional Limitations- Mobility/Gait Pt unable to walk more than one block Functional Limitations- Recreation/ Pt has not gone to pool in [place] past two years. PT-OP-C Subjective Start: 11/28/18 17:41 Freq: Status: Active Protocol: Document 07/24/19 15:15 DCW (Rec: 07/24/19 16:03 DCW [id number]) OP-PT Subjective Patient Comments Patient Comments Pt reports she has had an increase in radicular symptoms down into her left ankle. PT-OP-F Manual Assessment Start: 11/28/18 17:41 Freq: Status: Active Protocol: Document 07/24/19 15:15 DCW (Rec: 07/24/19 15:48 DCW [id number]) Manual Assessments Soft Tissue Assessment Soft Tissue Mobility Assessment Severe tone and tenderness to palpation 3/4:Wincing and withdraw: bilateral QL, left piriformis, left ITB Moderate tone and tenderness to palpation 2/4: Pain with wincing: right piriformis, right ITB PT-OP-K Range of Motion Start: 11/28/18 17:41 Freq: Status: Active Protocol: Document 07/24/19 15:15 DCW (Rec: 07/24/19 15:48 DCW [id number]) Lumbar Spine Range of Motion Lumbar Spine Active Degrees Testing Position Standing Flexion 59 Extension 10 Lateral Flexion Left 54 Lateral Flexion Right 56 ROM Limitations Pain Comments Lateral flexion measured in cm from fingertip to floor. Extension limited secondary to pain PT-OP-L Special Tests Start: 11/28/18 17:41 Freq: Status: Active Protocol: Document 07/24/19 15:15 DCW (Rec: 07/24/19 15:48 DCW [id number]) Special Tests Lumbar Spine Special Tests Manual Traction Test Results Improves symptoms Compression Test Results Improves symptoms Hip Special Tests Piriformis Test Results B tenderness at Piriformis PARAS Test Results Positive left ipsilateral lateral hip pain PT-OP-M Strength Start: 11/28/18 17:41 Freq: Status: Active Protocol: Document 07/24/19 15:15 DCW (Rec: 07/24/19 15:48 DCW [id number]) Hip Strength Hip Manual Muscle Testing Right Flexion (L2) 4 Good Abduction 4 Good Adduction 4 Good External Rotation 4 Good Internal Rotation 4+ Good+ Left Flexion (L2) 4- Good- Abduction 4- Good- Adduction 4- Good- External Rotation 4+ Good+ Internal Rotation 4+ Good+ Knee Strength Knee Manual Muscle Testing Right Flexion (S2) 4+ Good+ Extension (L3) 5 Normal Left Flexion (S2) 4+ Good+ Extension (L3) 5 Normal Ankle/Foot Strength Ankle and Foot Manual Muscle Testing Right Dorsiflexion (L4) 4 Good Plantarflexion (S1) 4 Good Left Dorsiflexion (L4) 4 Good Plantarflexion (S1) 4 Good PT-OP-O Vestibular Start: 04/30/19 17:56 Freq: Status: Active Protocol: Document 04/30/19 12:00 DCW (Rec: 05/01/19 09:44 DCW [id number]) Vestibular Assessment Visual Testing Smooth Pursuits Horizontal Questionable saccadic movement when following left Smooth Pursuits Vertical WNL Saccades Horizontal WNL Positional Testing [place]-Hallpike Negative Left,Negative Right Rolling Test Positive Left,Positive Right,> 60 Seconds Comments Vestibular Comments Ageotropic nystagmus with roll test, continued entire time pt was positioned PT-OP-Q Treatments Start: 11/28/18 17:41 Freq: Status: Active Protocol: Document 07/24/19 15:15 DCW (Rec: 07/24/19 16:03 DCW [id number]) Therapeutic Exercises Supine Exercises SLR Supine Exercise Name passive SLR /c active DF/PF Side bilateral Reps/Minutes 8 mins Manual Therapy Treatment Soft Tissue Mobilization Piriformis Body Location B Piriformis Mobilization Type Strumming,Sustained Pressure Intensity/Depth Deep Body Position Sidelying Other Other Manual Treatments Testing PT-OP-R Modalities Start: 11/28/18 17:41 Freq: Status: Active Protocol: Document 07/24/19 15:15 DCW (Rec: 07/24/19 16:03 DCW [id number]) Hot Pack/Cold Pack Treatment Hot Pack Location low back Patient Position Hooklying Treatment Duration (minutes) 10 Patient Tolerance Good PT-OP-T Assessment and Plan Start: 11/28/18 17:41 Freq: Status: Active Protocol: Document 07/24/19 15:15 DCW (Rec: 07/24/19 16:03 DCW [id number]) Physical Therapy Assessment Goals Five Impairment Positive Roll test Halfway Goal (LTG) Pt to exhibit negative positional testing bilaterally LTG Duration 08/24/19 Four Impairment Core and hip weakness Short Term Goal (STG) Pt to demonstrate increased hip abduction bilaterally to 4 +/5 STG Duration 08/24/19 Powder Loader Goal (LTG) Goal Met:Pt to exhibit core/ TrA MMT 4-/5 Advance to 4+/5 LTG Duration 09/23/19 Three Impairment Pt has not been able to swim for two years Halfway Goal (LTG) Pt to return to community pool independently for exercise with no increased back pain 02/21/19:Pt still limited due to open wounds on arms LTG Duration 09/23/19 Two Impairment Pt only able to walk <one square block due to pain Short Term Goal (STG) Pt to ambulate 1/2 mile with no increased pain STG Duration 08/24/19 - Improving Powder Loader Goal (LTG) Pt to ambulate one mile with no increased pain LTG Duration 09/23/19 One Impairment Pt does not have an appropriate home exercise program Short Term Goal (STG) Pt to be independent and compliant with an appropriate HEP STG Duration Met Assessment Summary Assessment Pt's left ankle continues to bother her, pain appeared to lessen following manual therapy to L piriformis. Overall, pt has regressed a little following a two month layoff due to closing of the clinic secondary to Covid-19. Pt should benefit from continued therapy focusing on LE and core strengthening, STM , and pain-control techniques. Physical Therapy Plan Frequency and Duration Frequency of Treatment 2x/Week Duration of Treatment 12 weeks Plan of Care Start Date 07/24/19 Plan of Care End Date 10/16/19 Therapeutic Interventions Therapeutic Interventions Aquatic Therapy,Home Exercise Program,Joint Mobilizations, Manual Therapy,Self-Care/Home Management,Soft Tissue Mobilization,Therapeutic Activities,Therapeutic Exercises Modalities Cold Pack/Ice Massage,Electric Stimulation,Hot Packs, Ultrasound Next Visit Focus/Plan Next Note Type Treatment Note Next Visit Plan reassess pt;s L ankle pain Further positional testing and CRM as indicated Assess response to step taps/ up/downs and gait on 6 stairs to progress SLS balance with SPC support and provide confidence to stair mgt at home again. Possible add pool therapy to acclimate back to self pool HEP prior performed as long has no open wounds on arms and good right now. STM, Stretching, Core strengthening, Estim as needed Trunk gentle ROM for HEP Hip flexor stretch
--- NOTE | 2019-07-24 16:04 | PT.OPPOC ---
Physical, Occupational & Speech Therapy At [facility] Current Diagnoses Polyneuropathy, unspecified (07/24/19) Benign paroxysmal vertigo, left ear (07/24/19) Pain in right hip (07/24/19) Pain in left hip (07/24/19) Stiffness of right hip, not elsewhere classified (07/24/19) Stiffness of left hip, not elsewhere classified (07/24/19) Spondylolisthesis, lumbar region (07/24/19) Spondylosis without myelopathy or radiculopathy, lumbosacral region (07/24/19) Other intervertebral disc displacement, lumbar region (07/24/19) Muscle weakness (generalized) (07/24/19) Visit Care Team Role Provider Type Jorge L Dietz MD Primary Care Provider Physician Specialty: Family Practice Address: [address] [place] [address], [facility] [place], [address] Email: [email or web address] MIRACLE Arriaza Attending Provider [employer] Management Consulting Manager Specialty: Pain Management Address: [address] [place] [address], [id number] Email: [email or web address] Plan Of Care PT-OP-T Assessment and Plan Start: 11/28/18 17:41 Freq: Status: Active Protocol: Document 07/24/19 15:15 DCW (Rec: 07/24/19 16:03 DCW [id number]) Physical Therapy Assessment Goals Five Impairment Positive Roll test Doctor Podiatric Medicine Goal (LTG) Pt to exhibit negative positional testing bilaterally LTG Duration 08/24/19 Four Impairment Core and hip weakness Short Term Goal (STG) Pt to demonstrate increased hip abduction bilaterally to 4 +/5 STG Duration 08/24/19 Fdc Goal (LTG) Goal Met:Pt to exhibit core/ TrA MMT 4-/5 Advance to 4+/5 LTG Duration 09/23/19 Three Impairment Pt has not been able to swim for two years Doctor Podiatric Medicine Goal (LTG) Pt to return to community pool independently for exercise with no increased back pain 12/12/19:Pt still limited due to open wounds on arms LTG Duration 09/23/19 Two Impairment Pt only able to walk <one square block due to pain Short Term Goal (STG) Pt to ambulate 1/2 mile with no increased pain STG Duration 08/24/19 - Improving Fdc Goal (LTG) Pt to ambulate one mile with no increased pain LTG Duration 09/23/19 One Impairment Pt does not have an appropriate home exercise program Short Term Goal (STG) Pt to be independent and compliant with an appropriate HEP STG Duration Met Assessment Summary Assessment Pt's left ankle continues to bother her, pain appeared to lessen following manual therapy to L piriformis. Overall, pt has regressed a little following a two month layoff due to closing of the clinic secondary to Covid-19. Pt should benefit from continued therapy focusing on LE and core strengthening, STM , and pain-control techniques. Physical Therapy Plan Frequency and Duration Frequency of Treatment 2x/Week Duration of Treatment 12 weeks Plan of Care Start Date 07/24/19 Plan of Care End Date 10/16/19 Therapeutic Interventions Therapeutic Interventions Aquatic Therapy,Home Exercise Program,Joint Mobilizations, Manual Therapy,Self-Care/Home Management,Soft Tissue Mobilization,Therapeutic Activities,Therapeutic Exercises Modalities Cold Pack/Ice Massage,Electric Stimulation,Hot Packs, Ultrasound Next Visit Focus/Plan Next Note Type Treatment Note Next Visit Plan reassess pt;s L ankle pain Further positional testing and CRM as indicated Assess response to step taps/ up/downs and gait on 6 stairs to progress SLS balance with SPC support and provide confidence to stair mgt at home again. Possible add pool therapy to acclimate back to self pool HEP prior performed as long has no open wounds on arms and good right now. STM, Stretching, Core strengthening, Estim as needed Trunk gentle ROM for HEP Hip flexor stretch Plan of Care Dates Plan of Care Start Date 07/24/19 Plan of Care End Date 10/16/19 Electronically Signed by: Geremias Adam, PT 07/24/19 7120 Please Sign and Return: I have reviewed this Plan of Care and certify that the skilled therapy services above are required to meet the patient?s needs. Physician Signature Date Printed Name and Credentials Clinical Instructor Signature Printed Name and Credentials
--- NOTE | 2019-07-24 16:09 | PT.OPPOC ---
Physical, Occupational & Speech Therapy At [facility] Current Diagnoses Polyneuropathy, unspecified (07/24/19) Benign paroxysmal vertigo, left ear (07/24/19) Pain in right hip (07/24/19) Pain in left hip (07/24/19) Stiffness of right hip, not elsewhere classified (07/24/19) Stiffness of left hip, not elsewhere classified (07/24/19) Spondylolisthesis, lumbar region (07/24/19) Spondylosis without myelopathy or radiculopathy, lumbosacral region (07/24/19) Other intervertebral disc displacement, lumbar region (07/24/19) Muscle weakness (generalized) (07/24/19) Visit Care Team Role Provider Type Jorge L Dietz MD Primary Care Provider Physician Specialty: Family Practice Address: [address] [place] [address], [facility] [place], [address] Email: [email or web address] MIRACLE Arriaza Attending Provider 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 Specialty: Pain Management Address: [address] [place] [address], [id number] Email: [email or web address] Plan Of Care PT-OP-T Assessment and Plan Start: 11/28/18 17:41 Freq: Status: Active Protocol: Document 07/24/19 15:15 DCW (Rec: 07/24/19 16:03 DCW [id number]) Physical Therapy Assessment Goals Five Impairment Positive Roll test Bushing Press Operator Goal (LTG) Pt to exhibit negative positional testing bilaterally LTG Duration 08/24/19 Four Impairment Core and hip weakness Short Term Goal (STG) Pt to demonstrate increased hip abduction bilaterally to 4 +/5 STG Duration 08/24/19 Long-Term Goal (LTG) Goal Met:Pt to exhibit core/ TrA MMT 4-/5 Advance to 4+/5 LTG Duration 09/23/19 Three Impairment Pt has not been able to swim for two years Bushing Press Operator Goal (LTG) Pt to return to community pool independently for exercise with no increased back pain 12/12/19:Pt still limited due to open wounds on arms LTG Duration 09/23/19 Two Impairment Pt only able to walk <one square block due to pain Short Term Goal (STG) Pt to ambulate 1/2 mile with no increased pain STG Duration 08/24/19 - Improving Long-Term Goal (LTG) Pt to ambulate one mile with no increased pain LTG Duration 09/23/19 One Impairment Pt does not have an appropriate home exercise program Short Term Goal (STG) Pt to be independent and compliant with an appropriate HEP STG Duration Met Assessment Summary Assessment Pt's left ankle continues to bother her, pain appeared to lessen following manual therapy to L piriformis. Overall, pt has regressed a little following a two month layoff due to closing of the clinic secondary to Covid-19. Pt should benefit from continued therapy focusing on LE and core strengthening, STM , and pain-control techniques. Physical Therapy Plan Frequency and Duration Frequency of Treatment 2x/Week Duration of Treatment 12 weeks Plan of Care Start Date 07/24/19 Plan of Care End Date 10/16/19 Therapeutic Interventions Therapeutic Interventions Aquatic Therapy,Home Exercise Program,Joint Mobilizations, Manual Therapy,Self-Care/Home Management,Soft Tissue Mobilization,Therapeutic Activities,Therapeutic Exercises Modalities Cold Pack/Ice Massage,Electric Stimulation,Hot Packs, Ultrasound Next Visit Focus/Plan Next Note Type Treatment Note Next Visit Plan reassess pt;s L ankle pain Further positional testing and CRM as indicated Assess response to step taps/ up/downs and gait on 6 stairs to progress SLS balance with SPC support and provide confidence to stair mgt at home again. Possible add pool therapy to acclimate back to self pool HEP prior performed as long has no open wounds on arms and good right now. STM, Stretching, Core strengthening, Estim as needed Trunk gentle ROM for HEP Hip flexor stretch Plan of Care Dates Plan of Care Start Date 07/24/19 Plan of Care End Date 10/16/19 Electronically Signed by: Geremias Adam, PT 07/24/19 3055 Please Sign and Return: I have reviewed this Plan of Care and certify that the skilled therapy services above are required to meet the patient?s needs. Physician Signature Date Printed Name and Credentials Clinical Instructor Signature Printed Name and Credentials
--- NOTE | 2019-07-29 09:43 | PT.OTN ---
Current Diagnoses Polyneuropathy, unspecified (07/29/19) Benign paroxysmal vertigo, left ear (07/29/19) Pain in right hip (07/29/19) Pain in left hip (07/29/19) Stiffness of right hip, not elsewhere classified (07/29/19) Stiffness of left hip, not elsewhere classified (07/29/19) Spondylolisthesis, lumbar region (07/29/19) Spondylosis without myelopathy or radiculopathy, lumbosacral region (07/29/19) Other intervertebral disc displacement, lumbar region (07/29/19) Muscle weakness (generalized) (07/29/19) Physical Therapy Treatment Note PT-OP-A Visit Information Start: 11/28/18 17:41 Freq: Status: Active Protocol: Document 07/29/19 09:00 DCW (Rec: 07/29/19 09:43 DCW [id number]) Out-Patient Physical Therapy Visit Information Visit Information Visit Type Treatment Note Visit Start Time 09:00 Visit Stop Time 09:50 Total Visit Minutes 50 Visit Number 28 Number of CHILD CARE PROVIDER Visits 0 Evaluation Information Evaluation Date 11/28/18 PT-OP-B Current Condition Start: 11/28/18 17:41 Freq: Status: Active Protocol: Document 04/30/19 12:00 DCW (Rec: 04/30/19 17:55 DCW [id number]) Current Condition History of Current Condition Onset Date Two years Current Complaints Worsening back pain History of Current Condition Pt is a 78 year old female presenting with progressive low back pain. Pt notes she has had lumbar issues off and on for 20 years, but that six years ago, she was caring for her life partner, who was going through an illness at the time, and strained her back. It has been bad since then, and specifically worsening over the last two years. Additionally, pt notes that she pulled something on Monday in her left posterior hip, which has been causing even more pain and difficulty in her getting around. Pt notes that if she is sitting or lying down, she doesn't feel too bad, but if she stays in a position too samir, she has a large increase in pain when she tries to get up and move around. Pt feels like she has substantially decreased in her level of activity tolerance and overall fitness level. Pt reports that she tries to walk one block every day, and frequently is unable to do so. Pt also has in the past swam 3x/week, and now has not been to the pool in two years. ADDENDUM 04/30/19: Pt has a new referral for eval/treat of ongoing dizziness. Pt notes that dizziness occurs in episodes lasting seconds, and is brought on by lying back in bed or bending over to harness the dog. 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 The most prominent level of degenerative change is L3-L4, where there is a left lateral recess disc extrusion, with associated moderate to severe central canal narrowing. Moderate to severe bilateral neural foraminal narrowing is also seen at this level. Impression taken from Objective history of pt note from MIRACLE Arriaza on Prior Functional Status Baseline Function- ADL's Independent Baseline Function- Mobility Independent Baseline Function- Gait Walk multiple miles downtown Baseline Function- Recreation/Hobbies Swimming at [employer] pool Current Functional Impairments (Reported) Functional Limitations- Mobility/Gait Pt unable to walk more than one block Functional Limitations- Recreation/ Pt has not gone to pool in [place] past two years. PT-OP-C Subjective Start: 11/28/18 17:41 Freq: Status: Active Protocol: Document 07/29/19 09:00 DCW (Rec: 07/29/19 09:43 DCW [id number]) OP-PT Subjective Patient Comments Patient Comments Pt reports she is cranky tioday, feels sore all over, although she does admit that her ankle is doing much better since her last appointment. PT-OP-F Manual Assessment Start: 11/28/18 17:41 Freq: Status: Active Protocol: Document 07/24/19 15:15 DCW (Rec: 07/24/19 15:48 DCW [id number]) Manual Assessments Soft Tissue Assessment Soft Tissue Mobility Assessment Severe tone and tenderness to palpation 3/4:Wincing and withdraw: bilateral QL, left piriformis, left ITB Moderate tone and tenderness to palpation 2/4: Pain with wincing: right piriformis, right ITB PT-OP-K Range of Motion Start: 11/28/18 17:41 Freq: Status: Active Protocol: Document 05/13/20 15:15 DCW (Rec: 05/13/20 15:48 DCW [id number]) Lumbar Spine Range of Motion Lumbar Spine Active Degrees Testing Position Standing Flexion 59 Extension 10 Lateral Flexion Left 54 Lateral Flexion Right 56 ROM Limitations Pain Comments Lateral flexion measured in cm from fingertip to floor. Extension limited secondary to pain PT-OP-L Special Tests Start: 11/28/18 17:41 Freq: Status: Active Protocol: Document 07/24/19 15:15 DCW (Rec: 07/24/19 15:48 DCW [id number]) Special Tests Lumbar Spine Special Tests Manual Traction Test Results Improves symptoms Compression Test Results Improves symptoms Hip Special Tests Piriformis Test Results B tenderness at Piriformis PARAS Test Results Positive left ipsilateral lateral hip pain PT-OP-M Strength Start: 11/28/18 17:41 Freq: Status: Active Protocol: Document 07/24/19 15:15 DCW (Rec: 07/24/19 15:48 DCW [id number]) Hip Strength Hip Manual Muscle Testing Right Flexion (L2) 4 Good Abduction 4 Good Adduction 4 Good External Rotation 4 Good Internal Rotation 4+ Good+ Left Flexion (L2) 4- Good- Abduction 4- Good- Adduction 4- Good- External Rotation 4+ Good+ Internal Rotation 4+ Good+ Knee Strength Knee Manual Muscle Testing Right Flexion (S2) 4+ Good+ Extension (L3) 5 Normal Left Flexion (S2) 4+ Good+ Extension (L3) 5 Normal Ankle/Foot Strength Ankle and Foot Manual Muscle Testing Right Dorsiflexion (L4) 4 Good Plantarflexion (S1) 4 Good Left Dorsiflexion (L4) 4 Good Plantarflexion (S1) 4 Good PT-OP-O Vestibular Start: 04/30/19 17:56 Freq: Status: Active Protocol: Document 04/30/19 12:00 DCW (Rec: 05/01/19 09:44 DCW [id number]) Vestibular Assessment Visual Testing Smooth Pursuits Horizontal Questionable saccadic movement when following left Smooth Pursuits Vertical WNL Saccades Horizontal WNL Positional Testing Rush-Hallpike Negative Left,Negative Right Rolling Test Positive Left,Positive Right,> 60 Seconds Comments Vestibular Comments Ageotropic nystagmus with roll test, continued entire time pt was positioned PT-OP-Q Treatments Start: 11/28/18 17:41 Freq: Status: Active Protocol: Document 07/29/19 09:00 DCW (Rec: 07/29/19 09:43 DCW [id number]) Cardio Equipment Recumbent Elliptical (Biodex) Duration (Minutes) 8 Resistance 3 Seat Position 8 Gym Equipment Shuttle Recovery Unilateral Squats Resistance 37# Shuttle Recovery Platform Stable Reps/Time 2x15 Bilateral Squats Resistance 75# Shuttle Recovery Platform Stable Reps/Time 2x15 Therapeutic Exercises Supine Exercises lower trunk rotation Supine Exercise Name LTR Side bilateral Reps/Minutes x5 Comments cues PPT Piriformis stretch Supine Exercise Name Figure-4 Side bilateral Reps/Minutes 30 each LE Manual Therapy Treatment Soft Tissue Mobilization Piriformis Body Location B Piriformis Mobilization Type Strumming,Sustained Pressure Intensity/Depth Deep Body Position Sidelying L/S and glutes Body Location B L/S and glutes Mobilization Type Cross-Friction,Myofascial Release,Sustained Pressure Intensity/Depth Moderate Body Position Sidelying PT-OP-R Modalities Start: 11/28/18 17:41 Freq: Status: Active Protocol: Document 07/29/19 09:00 DCW (Rec: 07/29/19 09:43 DC [id number]) Hot Pack/Cold Pack Treatment Hot Pack Location low back Patient Position Hooklying Treatment Duration (minutes) 10 Patient Tolerance Good PT-OP-T Assessment and Plan Start: 11/28/18 17:41 Freq: Status: Active Protocol: Document 07/29/19 09:00 DCW (Rec: 07/29/19 09:43 DC [id number]) Physical Therapy Assessment Goals Five Impairment Positive Roll test Tile Machine Operator Goal (LTG) Pt to exhibit negative positional testing bilaterally LTG Duration 08/24/19 Four Impairment Core and hip weakness Short Term Goal (STG) Pt to demonstrate increased hip abduction bilaterally to 4 +/5 STG Duration 08/24/19 Tile Machine Operator Goal (LTG) Goal Met:Pt to exhibit core/ TrA MMT 4-/5 Advance to 4+/5 LTG Duration 09/23/19 Three Impairment Pt has not been able to swim for two years Tile Machine Operator Goal (LTG) Pt to return to community pool independently for exercise with no increased back pain 02/21/19:Pt still limited due to open wounds on arms LTG Duration 09/23/19 Two Impairment Pt only able to walk <one square block due to pain Short Term Goal (STG) Pt to ambulate 1/2 mile with no increased pain STG Duration 08/24/19 - Improving [facility] Goal (LTG) Pt to ambulate one mile with no increased pain LTG Duration 09/23/19 One Impairment Pt does not have an appropriate home exercise program Short Term Goal (STG) Pt to be independent and compliant with an appropriate HEP STG Duration Met Assessment Summary Assessment Pt radicular pain gone today, just more general soft-tissue soreness secondary to increased tone along T/L spine . Pt tolerated exercises well, reviewed pt's HEP including trunk rotations, piriformis stretch, and seated lumbar stretch Physical Therapy Plan Frequency and Duration Frequency of Treatment 2x/Week Duration of Treatment 12 weeks Plan of Care Start Date 07/24/19 Plan of Care End Date 10/16/19 Therapeutic Interventions Therapeutic Interventions Aquatic Therapy,Home Exercise Program,Joint Mobilizations, Manual Therapy,Self-Care/Home Management,Soft Tissue Mobilization,Therapeutic Activities,Therapeutic Exercises Modalities Cold Pack/Ice Massage,Electric Stimulation,Hot Packs, Ultrasound Next Visit Focus/Plan Next Note Type Treatment Note Next Visit Plan reassess pt;s L ankle pain Further positional testing and CRM as indicated Assess response to step taps/ up/downs and gait on 6 stairs to progress SLS balance with SPC support and provide confidence to stair mgt at home again. Possible add pool therapy to acclimate back to self pool HEP prior performed as long has no open wounds on arms and good right now. STM, Stretching, Core strengthening, Estim as needed Trunk gentle ROM for HEP Hip flexor stretch
--- NOTE | 2019-08-01 14:19 | PT.OTN ---
Current Diagnoses Polyneuropathy, unspecified (08/01/19) Benign paroxysmal vertigo, left ear (08/01/19) Pain in right hip (08/01/19) Pain in left hip (08/01/19) Stiffness of right hip, not elsewhere classified (08/01/19) Stiffness of left hip, not elsewhere classified (08/01/19) Spondylolisthesis, lumbar region (08/01/19) Spondylosis without myelopathy or radiculopathy, lumbosacral region (08/01/19) Other intervertebral disc displacement, lumbar region (08/01/19) Muscle weakness (generalized) (08/01/19) Physical Therapy Treatment Note PT-OP-A Visit Information Start: 11/28/18 17:41 Freq: Status: Active Protocol: Document 08/01/19 13:32 HH (Rec: 08/01/19 14:18 HH [id number]) Out-Patient Physical Therapy Visit Information Visit Information Visit Type Treatment Note Visit Start Time 13:32 Visit Stop Time 14:18 Total Visit Minutes 48 Visit Number 29 Number of FOOD SERVICE DRIVER Visits 0 PT-OP-B Current Condition Start: 11/28/18 17:41 Freq: Status: Active Protocol: Document 04/30/19 12:00 DCW (Rec: 04/30/19 17:55 DCW [id number]) Current Condition History of Current Condition Onset Date Two years Current Complaints Worsening back pain History of Current Condition Pt is a 78 year old female presenting with progressive low back pain. Pt notes she has had lumbar issues off and on for 20 years, but that six years ago, she was caring for her life partner, who was going through an illness at the time, and strained her back. It has been bad since then, and specifically worsening over the last two years. Additionally, pt notes that she pulled something on Monday in her left posterior hip, which has been causing even more pain and difficulty in her getting around. Pt notes that if she is sitting or lying down, she doesn't feel too bad, but if she stays in a position too samir, she has a large increase in pain when she tries to get up and move around. Pt feels like she has substantially decreased in her level of activity tolerance and overall fitness level. Pt reports that she tries to walk one block every day, and frequently is unable to do so. Pt also has in the past swam 3x/week, and now has not been to the pool in two years. ADDENDUM 04/30/19: Pt has a new referral for eval/treat of ongoing dizziness. Pt notes that dizziness occurs in episodes lasting seconds, and is brought on by lying back in bed or bending over to harness the dog. 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 The most prominent level of degenerative change is L3-L4, where there is a left lateral recess disc extrusion, with associated moderate to severe central canal narrowing. Moderate to severe bilateral neural foraminal narrowing is also seen at this level. Impression taken from Objective history of pt note from MIRACLE Arriaza on Prior Functional Status Baseline Function- ADL's Independent Baseline Function- Mobility Independent Baseline Function- Gait Walk multiple miles downtown Baseline Function- Recreation/Hobbies Swimming at community pool Current Functional Impairments (Reported) Functional Limitations- Mobility/Gait Pt unable to walk more than one block Functional Limitations- Recreation/ Pt has not gone to pool in [place] past two years. PT-OP-C Subjective Start: 11/28/18 17:41 Freq: Status: Active Protocol: Document 08/01/19 13:32 HH (Rec: 08/01/19 14:18 HH [id number]) OP-PT Subjective Patient Comments Patient Comments Im doing okay today. I dont have any shooting pain to L ankle. Patient Reported Progress Improving PT-OP-F Manual Assessment Start: 11/28/18 17:41 Freq: Status: Active Protocol: Document 07/24/19 15:15 DCW (Rec: 07/24/19 15:48 DCW [id number]) Manual Assessments Soft Tissue Assessment Soft Tissue Mobility Assessment Severe tone and tenderness to palpation 3/4:Wincing and withdraw: bilateral QL, left piriformis, left ITB Moderate tone and tenderness to palpation 2/4: Pain with wincing: right piriformis, right ITB PT-OP-K Range of Motion Start: 11/28/18 17:41 Freq: Status: Active Protocol: Document 07/24/19 15:15 DCW (Rec: 07/24/19 15:48 DCW [id number]) Lumbar Spine Range of Motion Lumbar Spine Active Degrees Testing Position Standing Flexion 59 Extension 10 Lateral Flexion Left 54 Lateral Flexion Right 56 ROM Limitations Pain Comments Lateral flexion measured in cm from fingertip to floor. Extension limited secondary to pain PT-OP-L Special Tests Start: 11/28/18 17:41 Freq: Status: Active Protocol: Document 07/24/19 15:15 DCW (Rec: 07/24/19 15:48 DCW [id number]) Special Tests Lumbar Spine Special Tests Manual Traction Test Results Improves symptoms Compression Test Results Improves symptoms Hip Special Tests Piriformis Test Results B tenderness at Piriformis PARAS Test Results Positive left ipsilateral lateral hip pain PT-OP-M Strength Start: 11/28/18 17:41 Freq: Status: Active Protocol: Document 07/24/19 15:15 DCW (Rec: 07/24/19 15:48 DCW [id number]) Hip Strength Hip Manual Muscle Testing Right Flexion (L2) 4 Good Abduction 4 Good Adduction 4 Good External Rotation 4 Good Internal Rotation 4+ Good+ Left Flexion (L2) 4- Good- Abduction 4- Good- Adduction 4- Good- External Rotation 4+ Good+ Internal Rotation 4+ Good+ Knee Strength Knee Manual Muscle Testing Right Flexion (S2) 4+ Good+ Extension (L3) 5 Normal Left Flexion (S2) 4+ Good+ Extension (L3) 5 Normal Ankle/Foot Strength Ankle and Foot Manual Muscle Testing Right Dorsiflexion (L4) 4 Good Plantarflexion (S1) 4 Good Left Dorsiflexion (L4) 4 Good Plantarflexion (S1) 4 Good PT-OP-O Vestibular Start: 04/30/19 17:56 Freq: Status: Active Protocol: Document 04/30/19 12:00 DCW (Rec: 05/01/19 09:44 DCW [id number]) Vestibular Assessment Visual Testing Smooth Pursuits Horizontal Questionable saccadic movement when following left Smooth Pursuits Vertical WNL Saccades Horizontal WNL Positional Testing Rush-Hallpike Negative Left,Negative Right Rolling Test Positive Left,Positive Right,> 60 Seconds Comments Vestibular Comments Ageotropic nystagmus with roll test, continued entire time pt was positioned PT-OP-Q Treatments Start: 11/28/18 17:41 Freq: Status: Active Protocol: Document 08/01/19 13:32 HH (Rec: 08/01/19 14:18 HH [id number]) Gym Equipment Shuttle Recovery Unilateral Squats Resistance 37# Shuttle Recovery Platform Stable Reps/Time 2x15 Bilateral Squats Resistance 75# Shuttle Recovery Platform Stable Reps/Time 2x15 Shuttle Balance RED Details RED Comments focus on anlke strategy without support for 10 sec, 20 sec and 25 secs Therapeutic Exercises Supine Exercises hamstring Side bilateral Reps/Minutes 30 secs hold x5 Comments L hamstirngs has higher tension than R jamarcus stretch Side bilateral Reps/Minutes 30 secs hold x5 Comments L hip and quad are sensitive. Piriformis stretch Supine Exercise Name Figure-4 Side bilateral Reps/Minutes 30 each LE PT-OP-R Modalities Start: 11/28/18 17:41 Freq: Status: Active Protocol: Document 08/01/19 13:32 (Rec: 08/01/19 14:19 [id number]) Hot Pack/Cold Pack Treatment Hot Pack Location low back Patient Position Hooklying Treatment Duration (minutes) 10 Patient Tolerance Good PT-OP-T Assessment and Plan Start: 11/28/18 17:41 Freq: Status: Active Protocol: Document 08/01/19 13:32 HH (Rec: 08/01/19 14:18 [id number]) Physical Therapy Assessment Goals Five Impairment Positive Roll test Halfway Goal (LTG) Pt to exhibit negative positional testing bilaterally LTG Duration 08/24/19 Four Impairment Core and hip weakness Short Term Goal (STG) Pt to demonstrate increased hip abduction bilaterally to 4 +/5 STG Duration 08/24/19 Halfway Goal (LTG) Goal Met:Pt to exhibit core/ TrA MMT 4-/5 Advance to 4+/5 LTG Duration 09/23/19 Three Impairment Pt has not been able to swim for two years Halfway Goal (LTG) Pt to return to community pool independently for exercise with no increased back pain 02/21/19:Pt still limited due to open wounds on arms LTG Duration 09/23/19 Two Impairment Pt only able to walk <one square block due to pain Short Term Goal (STG) Pt to ambulate 1/2 mile with no increased pain STG Duration 08/24/19 - Improving Halfway Goal (LTG) Pt to ambulate one mile with no increased pain LTG Duration 09/23/19 One Impairment Pt does not have an appropriate home exercise program Short Term Goal (STG) Pt to be independent and compliant with an appropriate HEP STG Duration Met Assessment Summary Assessment Pt radicular pain gone today as well. There's noticeable L hip flexors and quad tightness which limited her L hip extension during gait. Also focusde on ankle strategy on balance board today. pt reports improved steps and balance after. Physical Therapy Plan Next Visit Focus/Plan Next Note Type Treatment Note Next Visit Plan reassess pt;s L ankle pain Further positional testing and CRM as indicated Assess response to step taps/ up/downs and gait on 6 stairs to progress SLS balance with SPC support and provide confidence to stair mgt at home again. Possible add pool therapy to acclimate back to self pool HEP prior performed as long has no open wounds on arms and good right now. STM, Stretching, Core strengthening, Estim as needed Trunk gentle ROM for HEP Hip flexor stretch
--- NOTE | 2019-08-08 13:48 | PT.OTN ---
Current Diagnoses Polyneuropathy, unspecified (08/08/19) Benign paroxysmal vertigo, left ear (08/08/19) Pain in right hip (08/08/19) Pain in left hip (08/08/19) Stiffness of right hip, not elsewhere classified (08/08/19) Stiffness of left hip, not elsewhere classified (08/08/19) Spondylolisthesis, lumbar region (08/08/19) Spondylosis without myelopathy or radiculopathy, lumbosacral region (08/08/19) Other intervertebral disc displacement, lumbar region (08/08/19) Muscle weakness (generalized) (08/08/19) Physical Therapy Treatment Note PT-OP-A Visit Information Start: 11/28/18 17:41 Freq: Status: Active Protocol: Document 08/08/19 13:02 HH (Rec: 08/08/19 13:48 [id number]) Out-Patient Physical Therapy Visit Information Visit Information Visit Type Treatment Note Visit Start Time 13:02 Visit Stop Time 13:52 Total Visit Minutes 50 Visit Number 30 Number of WEATHER STRIP INSTALLER Visits 0 PT-OP-B Current Condition Start: 11/28/18 17:41 Freq: Status: Active Protocol: Document 04/30/19 12:00 DCW (Rec: 04/30/19 17:55 DCW [id number]) Current Condition History of Current Condition Onset Date Two years Current Complaints Worsening back pain History of Current Condition Pt is a 78 year old female presenting with progressive low back pain. Pt notes she has had lumbar issues off and on for 20 years, but that six years ago, she was caring for her life partner, who was going through an illness at the time, and strained her back. It has been bad since then, and specifically worsening over the last two years. Additionally, pt notes that she pulled something on Monday in her left posterior hip, which has been causing even more pain and difficulty in her getting around. Pt notes that if she is sitting or lying down, she doesn't feel too bad, but if she stays in a position too samir, she has a large increase in pain when she tries to get up and move around. Pt feels like she has substantially decreased in her level of activity tolerance and overall fitness level. Pt reports that she tries to walk one block every day, and frequently is unable to do so. Pt also has in the past swam 3x/week, and now has not been to the pool in two years. ADDENDUM 04/30/19: Pt has a new referral for eval/treat of ongoing dizziness. Pt notes that dizziness occurs in episodes lasting seconds, and is brought on by lying back in bed or bending over to harness the dog. 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 The most prominent level of degenerative change is L3-L4, where there is a left lateral recess disc extrusion, with associated moderate to severe central canal narrowing. Moderate to severe bilateral neural foraminal narrowing is also seen at this level. Impression taken from Objective history of pt note from [facility] Arriaza on Prior Functional Status Baseline Function- ADL's Independent Baseline Function- Mobility Independent Baseline Function- Gait Walk multiple miles downtown Baseline Function- Recreation/Hobbies Swimming at community pool Current Functional Impairments (Reported) Functional Limitations- Mobility/Gait Pt unable to walk more than one block Functional Limitations- Recreation/ Pt has not gone to pool in [place] past two years. PT-OP-C Subjective Start: 11/28/18 17:41 Freq: Status: Active Protocol: Document 08/08/19 13:02 HH (Rec: 08/08/19 13:48 HH [id number]) OP-PT Subjective Patient Comments Patient Comments I got very sore from last time especially on my back and butt area but nothing on my L foot. Patient Reported Progress Same PT-OP-F Manual Assessment Start: 11/28/18 17:41 Freq: Status: Active Protocol: Document 07/24/19 15:15 DCW (Rec: 07/24/19 15:48 DCW [id number]) Manual Assessments Soft Tissue Assessment Soft Tissue Mobility Assessment Severe tone and tenderness to palpation 3/4:Wincing and withdraw: bilateral QL, left piriformis, left ITB Moderate tone and tenderness to palpation 2/4: Pain with wincing: right piriformis, right ITB PT-OP-K Range of Motion Start: 11/28/18 17:41 Freq: Status: Active Protocol: Document 07/24/19 15:15 DCW (Rec: 07/24/19 15:48 DCW [id number]) Lumbar Spine Range of Motion Lumbar Spine Active Degrees Testing Position Standing Flexion 59 Extension 10 Lateral Flexion Left 54 Lateral Flexion Right 56 ROM Limitations Pain Comments Lateral flexion measured in cm from fingertip to floor. Extension limited secondary to pain PT-OP-L Special Tests Start: 11/28/18 17:41 Freq: Status: Active Protocol: Document 07/24/19 15:15 DCW (Rec: 07/24/19 15:48 DCW [id number]) Special Tests Lumbar Spine Special Tests Manual Traction Test Results Improves symptoms Compression Test Results Improves symptoms Hip Special Tests Piriformis Test Results B tenderness at Piriformis PARAS Test Results Positive left ipsilateral lateral hip pain PT-OP-M Strength Start: 11/28/18 17:41 Freq: Status: Active Protocol: Document 07/24/19 15:15 DCW (Rec: 07/24/19 15:48 DCW [id number]) Hip Strength Hip Manual Muscle Testing Right Flexion (L2) 4 Good Abduction 4 Good Adduction 4 Good External Rotation 4 Good Internal Rotation 4+ Good+ Left Flexion (L2) 4- Good- Abduction 4- Good- Adduction 4- Good- External Rotation 4+ Good+ Internal Rotation 4+ Good+ Knee Strength Knee Manual Muscle Testing Right Flexion (S2) 4+ Good+ Extension (L3) 5 Normal Left Flexion (S2) 4+ Good+ Extension (L3) 5 Normal Ankle/Foot Strength Ankle and Foot Manual Muscle Testing Right Dorsiflexion (L4) 4 Good Plantarflexion (S1) 4 Good Left Dorsiflexion (L4) 4 Good Plantarflexion (S1) 4 Good PT-OP-O Vestibular Start: 04/30/19 17:56 Freq: Status: Active Protocol: Document 04/30/19 12:00 DCW (Rec: 05/01/19 09:44 DCW [id number]) Vestibular Assessment Visual Testing Smooth Pursuits Horizontal Questionable saccadic movement when following left Smooth Pursuits Vertical WNL Saccades Horizontal WNL Positional Testing [place]-Hallpike Negative Left,Negative Right Rolling Test Positive Left,Positive Right,> 60 Seconds Comments Vestibular Comments Ageotropic nystagmus with roll test, continued entire time pt was positioned PT-OP-Q Treatments Start: 11/28/18 17:41 Freq: Status: Active Protocol: Document 08/08/19 13:02 HH (Rec: 08/08/19 13:48 HH [id number]) Cardio Equipment Recumbent Stepper (Sci-Fit) Duration (Minutes) 7 Resistance 1-3 Gym Equipment Shuttle Balance RED Details RED Comments focus on anlke strategy without support for 10 sec, 20 sec and 25 secs Therapeutic Exercises Supine Exercises hamstring Side bilateral Reps/Minutes 30 secs hold x5 Comments L hamstirngs has higher tension than R jamarcus stretch Side bilateral Reps/Minutes 30 secs hold x5 Comments L hip and quad are sensitive. Sitting Exercises floor touch Sitting Exercise Name forward reach Reps/Minutes 8 Comments for lumbar flexion reaches Sitting Exercise Name forward reach with gamez therapy ball Reps/Minutes 8 Comments for lumbar flexion flexion/extension Sitting Exercise Name segmental trunk flexion and extension Side bilateral Comments pt only able to reqach neutral for extension Manual Therapy Treatment Soft Tissue Mobilization L/S and glutes Body Location B L/S and glutes Mobilization Type Cross-Friction,Myofascial Release,Sustained Pressure Intensity/Depth Moderate Body Position Sidelying PT-OP-R Modalities Start: 11/28/18 17:41 Freq: Status: Active Protocol: Document 08/08/19 13:02 (Rec: 08/08/19 13:48 [id number]) Hot Pack/Cold Pack Treatment Hot Pack Location low back Patient Position Hooklying Treatment Duration (minutes) 10 Patient Tolerance Good PT-OP-T Assessment and Plan Start: 11/28/18 17:41 Freq: Status: Active Protocol: Document 08/08/19 13:02 (Rec: 08/08/19 13:48 [id number]) Physical Therapy Assessment Goals Five Impairment Positive Roll test Filler Machine Operator Goal (LTG) Pt to exhibit negative positional testing bilaterally LTG Duration 08/24/19 Four Impairment Core and hip weakness Short Term Goal (STG) Pt to demonstrate increased hip abduction bilaterally to 4 +/5 STG Duration 08/24/19 Filler Machine Operator Goal (LTG) Goal Met:Pt to exhibit core/ TrA MMT 4-/5 Advance to 4+/5 LTG Duration 09/23/19 Three Impairment Pt has not been able to swim for two years Fdc Goal (LTG) Pt to return to community pool independently for exercise with no increased back pain 02/21/19:Pt still limited due to open wounds on arms LTG Duration 09/23/19 Two Impairment Pt only able to walk <one square block due to pain Short Term Goal (STG) Pt to ambulate 1/2 mile with no increased pain STG Duration 08/24/19 - Improving Filler Machine Operator Goal (LTG) Pt to ambulate one mile with no increased pain LTG Duration 09/23/19 One Impairment Pt does not have an appropriate home exercise program Short Term Goal (STG) Pt to be independent and compliant with an appropriate HEP STG Duration Met Assessment Summary Assessment Pt has increased soreness since last visit. Educated pt to focus on hip stretch and trunk movements to improve her movement degree of freedom. Pt symptoms cont to be subsided with flexion based ex .
--- NOTE | 2019-08-12 12:07 | PT.OTN ---
Current Diagnoses Polyneuropathy, unspecified (08/12/19) Benign paroxysmal vertigo, left ear (08/12/19) Pain in right hip (08/12/19) Pain in left hip (08/12/19) Stiffness of right hip, not elsewhere classified (08/12/19) Stiffness of left hip, not elsewhere classified (08/12/19) Spondylolisthesis, lumbar region (08/12/19) Spondylosis without myelopathy or radiculopathy, lumbosacral region (08/12/19) Other intervertebral disc displacement, lumbar region (08/12/19) Muscle weakness (generalized) (08/12/19) Physical Therapy Treatment Note PT-OP-A Visit Information Start: 11/28/18 17:41 Freq: Status: Active Protocol: Document 08/12/19 11:15 DCW (Rec: 08/12/19 12:07 DCW [id number]) Out-Patient Physical Therapy Visit Information Visit Information Visit Type Treatment Note Visit Start Time 11:15 Visit Stop Time 12:05 Total Visit Minutes 50 Visit Number 31 Number of COLLATOR Visits 0 Evaluation Information Evaluation Date 11/28/18 PT-OP-B Current Condition Start: 11/28/18 17:41 Freq: Status: Active Protocol: Document 04/30/19 12:00 DCW (Rec: 04/30/19 17:55 DCW [id number]) Current Condition History of Current Condition Onset Date Two years Current Complaints Worsening back pain History of Current Condition Pt is a 78 year old female presenting with progressive low back pain. Pt notes she has had lumbar issues off and on for 20 years, but that six years ago, she was caring for her life partner, who was going through an illness at the time, and strained her back. It has been bad since then, and specifically worsening over the last two years. Additionally, pt notes that she pulled something on Monday in her left posterior hip, which has been causing even more pain and difficulty in her getting around. Pt notes that if she is sitting or lying down, she doesn't feel too bad, but if she stays in a position too samir, she has a large increase in pain when she tries to get up and move around. Pt feels like she has substantially decreased in her level of activity tolerance and overall fitness level. Pt reports that she tries to walk one block every day, and frequently is unable to do so. Pt also has in the past swam 3x/week, and now has not been to the pool in two years. ADDENDUM 04/30/19: Pt has a new referral for eval/treat of ongoing dizziness. Pt notes that dizziness occurs in episodes lasting seconds, and is brought on by lying back in bed or bending over to harness the dog. 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 The most prominent level of degenerative change is L3-L4, where there is a left lateral recess disc extrusion, with associated moderate to severe central canal narrowing. Moderate to severe bilateral neural foraminal narrowing is also seen at this level. Impression taken from Objective history of pt note from [facility] on Prior Functional Status Baseline Function- ADL's Independent Baseline Function- Mobility Independent Baseline Function- Gait Walk multiple miles downtown Baseline Function- Recreation/Hobbies Swimming at [employer] pool Current Functional Impairments (Reported) Functional Limitations- Mobility/Gait Pt unable to walk more than one block Functional Limitations- Recreation/ Pt has not gone to pool in [place] past two years. PT-OP-C Subjective Start: 11/28/18 17:41 Freq: Status: Active Protocol: Document 08/12/19 11:15 DCW (Rec: 08/12/19 12:07 DCW [id number]) OP-PT Subjective Patient Comments Patient Comments Pt reports she is actually pretty good today. PT-OP-F Manual Assessment Start: 11/28/18 17:41 Freq: Status: Active Protocol: Document 07/24/19 15:15 DCW (Rec: 07/24/19 15:48 DCW [id number]) Manual Assessments Soft Tissue Assessment Soft Tissue Mobility Assessment Severe tone and tenderness to palpation 3/4:Wincing and withdraw: bilateral QL, left piriformis, left ITB Moderate tone and tenderness to palpation 2/4: Pain with wincing: right piriformis, right ITB PT-OP-K Range of Motion Start: 11/28/18 17:41 Freq: Status: Active Protocol: Document 07/24/19 15:15 DCW (Rec: 07/24/19 15:48 DCW [id number]) Lumbar Spine Range of Motion Lumbar Spine Active Degrees Testing Position Standing Flexion 59 Extension 10 Lateral Flexion Left 54 Lateral Flexion Right 56 ROM Limitations Pain Comments Lateral flexion measured in cm from fingertip to floor. Extension limited secondary to pain PT-OP-L Special Tests Start: 11/28/18 17:41 Freq: Status: Active Protocol: Document 07/24/19 15:15 DCW (Rec: 07/24/19 15:48 DCW [id number]) Special Tests Lumbar Spine Special Tests Manual Traction Test Results Improves symptoms Compression Test Results Improves symptoms Hip Special Tests Piriformis Test Results B tenderness at Piriformis PARAS Test Results Positive left ipsilateral lateral hip pain PT-OP-M Strength Start: 11/28/18 17:41 Freq: Status: Active Protocol: Document 07/24/19 15:15 DCW (Rec: 07/24/19 15:48 DCW [id number]) Hip Strength Hip Manual Muscle Testing Right Flexion (L2) 4 Good Abduction 4 Good Adduction 4 Good External Rotation 4 Good Internal Rotation 4+ Good+ Left Flexion (L2) 4- Good- Abduction 4- Good- Adduction 4- Good- External Rotation 4+ Good+ Internal Rotation 4+ Good+ Knee Strength Knee Manual Muscle Testing Right Flexion (S2) 4+ Good+ Extension (L3) 5 Normal Left Flexion (S2) 4+ Good+ Extension (L3) 5 Normal Ankle/Foot Strength Ankle and Foot Manual Muscle Testing Right Dorsiflexion (L4) 4 Good Plantarflexion (S1) 4 Good Left Dorsiflexion (L4) 4 Good Plantarflexion (S1) 4 Good PT-OP-O Vestibular Start: 04/30/19 17:56 Freq: Status: Active Protocol: Document 04/30/19 12:00 DCW (Rec: 05/01/19 09:44 DCW [id number]) Vestibular Assessment Visual Testing Smooth Pursuits Horizontal Questionable saccadic movement when following left Smooth Pursuits Vertical WNL Saccades Horizontal WNL Positional Testing [place]-Hallpike Negative Left,Negative Right Rolling Test Positive Left,Positive Right,> 60 Seconds Comments Vestibular Comments Ageotropic nystagmus with roll test, continued entire time pt was positioned PT-OP-Q Treatments Start: 11/28/18 17:41 Freq: Status: Active Protocol: Document 08/12/19 11:15 DCW (Rec: 08/12/19 12:07 DCW [id number]) Cardio Equipment Recumbent Stepper (Sci-Fit) Duration (Minutes) 6 Resistance 2 Gym Equipment Shuttle Recovery Unilateral Squats Resistance 37# Shuttle Recovery Platform Stable Reps/Time x25 Bilateral Squats Resistance 75# Shuttle Recovery Platform Stable Reps/Time x25 Shuttle Balance RED Details RED Comments Wide RONNIE /c ankle strategy, Staggered Stance Therapeutic Exercises Supine Exercises hamstring Side bilateral Reps/Minutes 30 secs hold x5 Comments L hamstirngs has higher tension than R Manual Therapy Treatment Soft Tissue Mobilization Piriformis Body Location B Piriformis Mobilization Type Strumming,Sustained Pressure Intensity/Depth Deep Body Position Sidelying L/S and glutes Body Location B L/S and glutes Mobilization Type Cross-Friction,Myofascial Release,Sustained Pressure Intensity/Depth Moderate Body Position Sidelying PT-OP-R Modalities Start: 11/28/18 17:41 Freq: Status: Active Protocol: Document 08/12/19 11:15 DCW (Rec: 08/12/19 12:07 DCW [id number]) Hot Pack/Cold Pack Treatment Hot Pack Location low back Patient Position Hooklying Treatment Duration (minutes) 10 Patient Tolerance Good PT-OP-T Assessment and Plan Start: 11/28/18 17:41 Freq: Status: Active Protocol: Document 08/12/19 11:15 DCW (Rec: 08/12/19 12:07 DCW [id number]) Physical Therapy Assessment Goals Five Impairment Positive Roll test Manager Editorial Goal (LTG) Pt to exhibit negative positional testing bilaterally LTG Duration 08/24/19 Four Impairment Core and hip weakness Short Term Goal (STG) Pt to demonstrate increased hip abduction bilaterally to 4 +/5 STG Duration 08/24/19 Correction Goal (LTG) Goal Met:Pt to exhibit core/ TrA MMT 4-/5 Advance to 4+/5 LTG Duration 09/23/19 Three Impairment Pt has not been able to swim for two years Correction Goal (LTG) Pt to return to community pool independently for exercise with no increased back pain 02/21/19:Pt still limited due to open wounds on arms LTG Duration 09/23/19 Two Impairment Pt only able to walk <one square block due to pain Short Term Goal (STG) Pt to ambulate 1/2 mile with no increased pain STG Duration 08/24/19 - Improving Correction Goal (LTG) Pt to ambulate one mile with no increased pain LTG Duration 09/23/19 One Impairment Pt does not have an appropriate home exercise program Short Term Goal (STG) Pt to be independent and compliant with an appropriate HEP STG Duration Met Assessment Summary Assessment Pt doing much better today, able to move with less pain and feels like she has improved flexibility. Pt often has large variations ion symptoms from visit to visit, but will hopefully continue to feel improvement. Physical Therapy Plan Frequency and Duration Frequency of Treatment 2x/Week Duration of Treatment 12 weeks Plan of Care Start Date 07/24/19 Plan of Care End Date 10/16/19 Next Visit Focus/Plan Next Note Type Treatment Note
--- NOTE | 2019-08-15 13:48 | PT.OTN ---
Current Diagnoses Polyneuropathy, unspecified (08/15/19) Benign paroxysmal vertigo, left ear (08/15/19) Pain in right hip (08/15/19) Pain in left hip (08/15/19) Stiffness of right hip, not elsewhere classified (08/15/19) Stiffness of left hip, not elsewhere classified (08/15/19) Spondylolisthesis, lumbar region (08/15/19) Spondylosis without myelopathy or radiculopathy, lumbosacral region (08/15/19) Other intervertebral disc displacement, lumbar region (08/15/19) Muscle weakness (generalized) (08/15/19) Physical Therapy Treatment Note PT-OP-A Visit Information Start: 11/28/18 17:41 Freq: Status: Active Protocol: Document 08/15/19 13:01 HH (Rec: 08/15/19 13:48 HH [id number]) Out-Patient Physical Therapy Visit Information Visit Information Visit Type Treatment Note Visit Start Time 13:04 Visit Stop Time 13:49 Total Visit Minutes 45 Visit Number 32 Number of MEDICAL TRANSLATOR Visits 0 PT-OP-B Current Condition Start: 11/28/18 17:41 Freq: Status: Active Protocol: Document 04/30/19 12:00 DCW (Rec: 04/30/19 17:55 DCW [id number]) Current Condition History of Current Condition Onset Date Two years Current Complaints Worsening back pain History of Current Condition Pt is a 78 year old female presenting with progressive low back pain. Pt notes she has had lumbar issues off and on for 20 years, but that six years ago, she was caring for her life partner, who was going through an illness at the time, and strained her back. It has been bad since then, and specifically worsening over the last two years. Additionally, pt notes that she pulled something on Monday in her left posterior hip, which has been causing even more pain and difficulty in her getting around. Pt notes that if she is sitting or lying down, she doesn't feel too bad, but if she stays in a position too samir, she has a large increase in pain when she tries to get up and move around. Pt feels like she has substantially decreased in her level of activity tolerance and overall fitness level. Pt reports that she tries to walk one block every day, and frequently is unable to do so. Pt also has in the past swam 3x/week, and now has not been to the pool in two years. ADDENDUM 04/30/19: Pt has a new referral for eval/treat of ongoing dizziness. Pt notes that dizziness occurs in episodes lasting seconds, and is brought on by lying back in bed or bending over to harness the dog. 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 The most prominent level of degenerative change is L3-L4, where there is a left lateral recess disc extrusion, with associated moderate to severe central canal narrowing. Moderate to severe bilateral neural foraminal narrowing is also seen at this level. Impression taken from Objective history of pt note from MIRACLE Arriaza on Prior Functional Status Baseline Function- ADL's Independent Baseline Function- Mobility Independent Baseline Function- Gait Walk multiple miles downtown Baseline Function- Recreation/Hobbies Swimming at community pool Current Functional Impairments (Reported) Functional Limitations- Mobility/Gait Pt unable to walk more than one block Functional Limitations- Recreation/ Pt has not gone to pool in [place] past two years. PT-OP-C Subjective Start: 11/28/18 17:41 Freq: Status: Active Protocol: Document 08/15/19 13:01 (Rec: 08/15/19 13:48 [id number]) OP-PT Subjective Patient Comments Patient Comments I was hardly able to move this morning and its been bad since last visit. Im going to get injections with Dr. Wilburn on next monday. So i will be out for the following 7-10 days. My other doctor also said my thyroid stop waling so they changed my medication. PT-OP-F Manual Assessment Start: 11/28/18 17:41 Freq: Status: Active Protocol: Document 07/24/19 15:15 DCW (Rec: 07/24/19 15:48 DCW [id number]) Manual Assessments Soft Tissue Assessment Soft Tissue Mobility Assessment Severe tone and tenderness to palpation 3/4:Wincing and withdraw: bilateral QL, left piriformis, left ITB Moderate tone and tenderness to palpation 2/4: Pain with wincing: right piriformis, right ITB PT-OP-K Range of Motion Start: 11/28/18 17:41 Freq: Status: Active Protocol: Document 07/24/19 15:15 DCW (Rec: 07/24/19 15:48 DCW [id number]) Lumbar Spine Range of Motion Lumbar Spine Active Degrees Testing Position Standing Flexion 59 Extension 10 Lateral Flexion Left 54 Lateral Flexion Right 56 ROM Limitations Pain Comments Lateral flexion measured in cm from fingertip to floor. Extension limited secondary to pain PT-OP-L Special Tests Start: 11/28/18 17:41 Freq: Status: Active Protocol: Document 07/24/19 15:15 DCW (Rec: 07/24/19 15:48 DCW [id number]) Special Tests Lumbar Spine Special Tests Manual Traction Test Results Improves symptoms Compression Test Results Improves symptoms Hip Special Tests Piriformis Test Results B tenderness at Piriformis PARAS Test Results Positive left ipsilateral lateral hip pain PT-OP-M Strength Start: 11/28/18 17:41 Freq: Status: Active Protocol: Document 07/24/19 15:15 DCW (Rec: 07/24/19 15:48 DCW [id number]) Hip Strength Hip Manual Muscle Testing Right Flexion (L2) 4 Good Abduction 4 Good Adduction 4 Good External Rotation 4 Good Internal Rotation 4+ Good+ Left Flexion (L2) 4- Good- Abduction 4- Good- Adduction 4- Good- External Rotation 4+ Good+ Internal Rotation 4+ Good+ Knee Strength Knee Manual Muscle Testing Right Flexion (S2) 4+ Good+ Extension (L3) 5 Normal Left Flexion (S2) 4+ Good+ Extension (L3) 5 Normal Ankle/Foot Strength Ankle and Foot Manual Muscle Testing Right Dorsiflexion (L4) 4 Good Plantarflexion (S1) 4 Good Left Dorsiflexion (L4) 4 Good Plantarflexion (S1) 4 Good PT-OP-O Vestibular Start: 04/30/19 17:56 Freq: Status: Active Protocol: Document 04/30/19 12:00 DCW (Rec: 05/01/19 09:44 DCW [id number]) Vestibular Assessment Visual Testing Smooth Pursuits Horizontal Questionable saccadic movement when following left Smooth Pursuits Vertical WNL Saccades Horizontal WNL Positional Testing [place]-Hallpike Negative Left,Negative Right Rolling Test Positive Left,Positive Right,> 60 Seconds Comments Vestibular Comments Ageotropic nystagmus with roll test, continued entire time pt was positioned PT-OP-Q Treatments Start: 11/28/18 17:41 Freq: Status: Active Protocol: Document 08/15/19 13:01 (Rec: 08/15/19 13:48 [id number]) Cardio Equipment Recumbent Stepper (Sci-Fit) Duration (Minutes) 6 Resistance 2 Therapeutic Exercises Supine Exercises hamstring Side bilateral Reps/Minutes 30 secs hold x5 Comments L hamstirngs has higher tension than R jamarcus stretch Side bilateral Reps/Minutes 30 secs hold x5 Comments L hip and quad are sensitive. Piriformis stretch Supine Exercise Name PT assisted. Side bilateral Reps/Minutes 20 secs hold Sitting Exercises pelvic tilts Side bilateral Reps/Minutes 2 mins Comments pt has difficulty isolated pelvic tilt, pain noted with anterior tilt Manual Therapy Treatment Soft Tissue Mobilization L/S and glutes Body Location B L/S and glutes Mobilization Type Cross-Friction,Myofascial Release,Sustained Pressure Intensity/Depth Moderate Body Position Sidelying PT-OP-R Modalities Start: 11/28/18 17:41 Freq: Status: Active Protocol: Document 08/15/19 13:48 (Rec: 08/15/19 13:48 [id number]) Hot Pack/Cold Pack Treatment Hot Pack Location low back Patient Position Hooklying Treatment Duration (minutes) 10 Patient Tolerance Good PT-OP-T Assessment and Plan Start: 11/28/18 17:41 Freq: Status: Active Protocol: Document 08/15/19 13:01 (Rec: 08/15/19 13:48 [id number]) Physical Therapy Assessment Goals Five Impairment Positive Roll test Telecommunications Engineer Goal (LTG) Pt to exhibit negative positional testing bilaterally LTG Duration 08/24/19 Four Impairment Core and hip weakness Short Term Goal (STG) Pt to demonstrate increased hip abduction bilaterally to 4 +/5 STG Duration 08/24/19 [facility] Goal (LTG) Goal Met:Pt to exhibit core/ TrA MMT 4-/5 Advance to 4+/5 LTG Duration 09/23/19 Three Impairment Pt has not been able to swim for two years Telecommunications Engineer Goal (LTG) Pt to return to community pool independently for exercise with no increased back pain 02/21/19:Pt still limited due to open wounds on arms LTG Duration 09/23/19 Two Impairment Pt only able to walk <one square block due to pain Short Term Goal (STG) Pt to ambulate 1/2 mile with no increased pain STG Duration 08/24/19 - Improving Telecommunications Engineer Goal (LTG) Pt to ambulate one mile with no increased pain LTG Duration 09/23/19 One Impairment Pt does not have an appropriate home exercise program Short Term Goal (STG) Pt to be independent and compliant with an appropriate HEP STG Duration Met Assessment Summary Assessment Pt cont to have flare ups and large variation in symptoms between visits. Educated pt on weight management today and degree of freedom for joint mobility. Pt has difficulty isolated pelvic tilt. Physical Therapy Plan Next Visit Focus/Plan Next Note Type Treatment Note Next Visit Plan cont hip mobility, pelvic tilt flexion based ex.
--- NOTE | 2019-08-26 14:25 | PT.OTN ---
Current Diagnoses Polyneuropathy, unspecified (08/26/19) Benign paroxysmal vertigo, left ear (08/26/19) Pain in right hip (08/26/19) Pain in left hip (08/26/19) Stiffness of right hip, not elsewhere classified (08/26/19) Stiffness of left hip, not elsewhere classified (08/26/19) Spondylolisthesis, lumbar region (08/26/19) Spondylosis without myelopathy or radiculopathy, lumbosacral region (08/26/19) Other intervertebral disc displacement, lumbar region (08/26/19) Muscle weakness (generalized) (08/26/19) Physical Therapy Treatment Note PT-OP-A Visit Information Start: 11/28/18 17:41 Freq: Status: Active Protocol: Document 08/26/19 13:50 DCW (Rec: 08/26/19 14:25 DCW [id number]) Out-Patient Physical Therapy Visit Information Visit Information Visit Type Treatment Note Visit Note 5 min late Visit Start Time 13:50 Visit Stop Time 14:35 Total Visit Minutes 45 Visit Number 33 Number of PILE DRIVING SUPERINTENDENT Visits 0 Evaluation Information Evaluation Date 11/28/18 PT-OP-B Current Condition Start: 11/28/18 17:41 Freq: Status: Active Protocol: Document 04/30/19 12:00 DCW (Rec: 04/30/19 17:55 DCW [id number]) Current Condition History of Current Condition Onset Date Two years Current Complaints Worsening back pain History of Current Condition Pt is a 78 year old female presenting with progressive low back pain. Pt notes she has had lumbar issues off and on for 20 years, but that six years ago, she was caring for her life partner, who was going through an illness at the time, and strained her back. It has been bad since then, and specifically worsening over the last two years. Additionally, pt notes that she pulled something on Monday in her left posterior hip, which has been causing even more pain and difficulty in her getting around. Pt notes that if she is sitting or lying down, she doesn't feel too bad, but if she stays in a position too samir, she has a large increase in pain when she tries to get up and move around. Pt feels like she has substantially decreased in her level of activity tolerance and overall fitness level. Pt reports that she tries to walk one block every day, and frequently is unable to do so. Pt also has in the past swam 3x/week, and now has not been to the pool in two years. ADDENDUM 04/30/19: Pt has a new referral for eval/treat of ongoing dizziness. Pt notes that dizziness occurs in episodes lasting seconds, and is brought on by lying back in bed or bending over to harness the dog. 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 The most prominent level of degenerative change is L3-L4, where there is a left lateral recess disc extrusion, with associated moderate to severe central canal narrowing. Moderate to severe bilateral neural foraminal narrowing is also seen at this level. Impression taken from Objective history of pt note from MIRACLE Arriaza on Prior Functional Status Baseline Function- ADL's Independent Baseline Function- Mobility Independent Baseline Function- Gait Walk multiple miles downtown Baseline Function- Recreation/Hobbies Swimming at [employer] pool Current Functional Impairments (Reported) Functional Limitations- Mobility/Gait Pt unable to walk more than one block Functional Limitations- Recreation/ Pt has not gone to pool in [place] past two years. PT-OP-C Subjective Start: 11/28/18 17:41 Freq: Status: Active Protocol: Document 08/26/19 13:50 DCW (Rec: 08/26/19 14:25 DCW [id number]) OP-PT Subjective Patient Comments Patient Comments Pt reports she is not feeling as good as she expected following her injections, but overall is feeling better, just not great PT-OP-F Manual Assessment Start: 11/28/18 17:41 Freq: Status: Active Protocol: Document 07/24/19 15:15 DCW (Rec: 07/24/19 15:48 DCW [id number]) Manual Assessments Soft Tissue Assessment Soft Tissue Mobility Assessment Severe tone and tenderness to palpation 3/4:Wincing and withdraw: bilateral QL, left piriformis, left ITB Moderate tone and tenderness to palpation 2/4: Pain with wincing: right piriformis, right ITB PT-OP-K Range of Motion Start: 11/28/18 17:41 Freq: Status: Active Protocol: Document 07/24/19 15:15 DCW (Rec: 07/24/19 15:48 DCW [id number]) Lumbar Spine Range of Motion Lumbar Spine Active Degrees Testing Position Standing Flexion 59 Extension 10 Lateral Flexion Left 54 Lateral Flexion Right 56 ROM Limitations Pain Comments Lateral flexion measured in cm from fingertip to floor. Extension limited secondary to pain PT-OP-L Special Tests Start: 11/28/18 17:41 Freq: Status: Active Protocol: Document 07/24/19 15:15 DCW (Rec: 07/24/19 15:48 DCW [id number]) Special Tests Lumbar Spine Special Tests Manual Traction Test Results Improves symptoms Compression Test Results Improves symptoms Hip Special Tests Piriformis Test Results B tenderness at Piriformis PARAS Test Results Positive left ipsilateral lateral hip pain PT-OP-M Strength Start: 11/28/18 17:41 Freq: Status: Active Protocol: Document 07/24/19 15:15 DCW (Rec: 07/24/19 15:48 DCW [id number]) Hip Strength Hip Manual Muscle Testing Right Flexion (L2) 4 Good Abduction 4 Good Adduction 4 Good External Rotation 4 Good Internal Rotation 4+ Good+ Left Flexion (L2) 4- Good- Abduction 4- Good- Adduction 4- Good- External Rotation 4+ Good+ Internal Rotation 4+ Good+ Knee Strength Knee Manual Muscle Testing Right Flexion (S2) 4+ Good+ Extension (L3) 5 Normal Left Flexion (S2) 4+ Good+ Extension (L3) 5 Normal Ankle/Foot Strength Ankle and Foot Manual Muscle Testing Right Dorsiflexion (L4) 4 Good Plantarflexion (S1) 4 Good Left Dorsiflexion (L4) 4 Good Plantarflexion (S1) 4 Good PT-OP-O Vestibular Start: 04/30/19 17:56 Freq: Status: Active Protocol: Document 04/30/19 12:00 DCW (Rec: 05/01/19 09:44 DCW [id number]) Vestibular Assessment Visual Testing Smooth Pursuits Horizontal Questionable saccadic movement when following left Smooth Pursuits Vertical WNL Saccades Horizontal WNL Positional Testing [place]-Hallpike Negative Left,Negative Right Rolling Test Positive Left,Positive Right,> 60 Seconds Comments Vestibular Comments Ageotropic nystagmus with roll test, continued entire time pt was positioned PT-OP-Q Treatments Start: 11/28/18 17:41 Freq: Status: Active Protocol: Document 08/26/19 13:50 DCW (Rec: 08/26/19 14:25 DCW [id number]) Cardio Equipment Recumbent Stepper (Sci-Fit) Duration (Minutes) 6 Resistance 2 Seat Position 9 Gym Equipment Shuttle Balance RED Details Red Comments Wide RONNIE /c ankle strategy, Staggered Stance Therapeutic Exercises Other Exercises Resisted Ambulation Other Exercise Name Side-stepping Resistance Green Manual Therapy Treatment Soft Tissue Mobilization Piriformis Body Location B Piriformis Mobilization Type Strumming,Sustained Pressure Intensity/Depth Deep Body Position Sidelying L/S and glutes Body Location B L/S and glutes Mobilization Type Cross-Friction,Myofascial Release,Sustained Pressure Intensity/Depth Moderate Body Position Sidelying PT-OP-R Modalities Start: 11/28/18 17:41 Freq: Status: Active Protocol: Document 08/26/19 13:50 DCW (Rec: 08/26/19 14:25 DCW [id number]) Hot Pack/Cold Pack Treatment Hot Pack Location low back Patient Position Hooklying Treatment Duration (minutes) 10 Patient Tolerance Good PT-OP-T Assessment and Plan Start: 11/28/18 17:41 Freq: Status: Active Protocol: Document 08/26/19 13:50 DCW (Rec: 08/26/19 14:25 DCW [id number]) Physical Therapy Assessment Goals Five Impairment Positive Roll test Senior Care Goal (LTG) Pt to exhibit negative positional testing bilaterally LTG Duration 08/24/19 Four Impairment Core and hip weakness Short Term Goal (STG) Pt to demonstrate increased hip abduction bilaterally to 4 +/5 STG Duration 08/24/19 Flash Designer Goal (LTG) Goal Met:Pt to exhibit core/ TrA MMT 4-/5 Advance to 4+/5 LTG Duration 09/23/19 Three Impairment Pt has not been able to swim for two years Senior Care Goal (LTG) Pt to return to community pool independently for exercise with no increased back pain 02/21/19:Pt still limited due to open wounds on arms LTG Duration 09/23/19 Two Impairment Pt only able to walk <one square block due to pain Short Term Goal (STG) Pt to ambulate 1/2 mile with no increased pain STG Duration 08/24/19 - Improving Senior Care Goal (LTG) Pt to ambulate one mile with no increased pain LTG Duration 09/23/19 One Impairment Pt does not have an appropriate home exercise program Short Term Goal (STG) Pt to be independent and compliant with an appropriate HEP STG Duration Met Assessment Summary Assessment PT doing better today following her injections last week, and planning for a shoulder injection in two days , pt hopeful that it will help limit her deficits and allow her to tolerate more activity. Physical Therapy Plan Frequency and Duration Frequency of Treatment 2x/Week Duration of Treatment 12 weeks Plan of Care Start Date 07/24/19 Plan of Care End Date 10/16/19 Next Visit Focus/Plan Next Note Type Treatment Note Next Visit Plan cont hip mobility, pelvic tilt flexion based ex.
--- NOTE | 2019-09-02 14:29 | PT.OTN ---
Current Diagnoses Polyneuropathy, unspecified (09/02/19) Benign paroxysmal vertigo, left ear (09/02/19) Pain in right hip (09/02/19) Pain in left hip (09/02/19) Stiffness of right hip, not elsewhere classified (09/02/19) Stiffness of left hip, not elsewhere classified (09/02/19) Spondylolisthesis, lumbar region (09/02/19) Spondylosis without myelopathy or radiculopathy, lumbosacral region (09/02/19) Other intervertebral disc displacement, lumbar region (09/02/19) Muscle weakness (generalized) (09/02/19) Physical Therapy Treatment Note PT-OP-A Visit Information Start: 11/28/18 17:41 Freq: Status: Active Protocol: Document 09/02/19 13:45 DCW (Rec: 09/02/19 14:28 DCW [id number]) Out-Patient Physical Therapy Visit Information Visit Information Visit Type Treatment Note Visit Start Time 13:45 Visit Stop Time 14:35 Total Visit Minutes 50 Visit Number 34 Number of HEALTH PROGRAM SPECIALIST Visits 0 Evaluation Information Evaluation Date 11/28/18 PT-OP-B Current Condition Start: 11/28/18 17:41 Freq: Status: Active Protocol: Document 04/30/19 12:00 DCW (Rec: 04/30/19 17:55 DCW [id number]) Current Condition History of Current Condition Onset Date Two years Current Complaints Worsening back pain History of Current Condition Pt is a 78 year old female presenting with progressive low back pain. Pt notes she has had lumbar issues off and on for 20 years, but that six years ago, she was caring for her life partner, who was going through an illness at the time, and strained her back. It has been bad since then, and specifically worsening over the last two years. Additionally, pt notes that she pulled something on Monday in her left posterior hip, which has been causing even more pain and difficulty in her getting around. Pt notes that if she is sitting or lying down, she doesn't feel too bad, but if she stays in a position too samir, she has a large increase in pain when she tries to get up and move around. Pt feels like she has substantially decreased in her level of activity tolerance and overall fitness level. Pt reports that she tries to walk one block every day, and frequently is unable to do so. Pt also has in the past swam 3x/week, and now has not been to the pool in two years. ADDENDUM 04/30/19: Pt has a new referral for eval/treat of ongoing dizziness. Pt notes that dizziness occurs in episodes lasting seconds, and is brought on by lying back in bed or bending over to harness the dog. 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 The most prominent level of degenerative change is L3-L4, where there is a left lateral recess disc extrusion, with associated moderate to severe central canal narrowing. Moderate to severe bilateral neural foraminal narrowing is also seen at this level. Impression taken from Objective history of pt note from MIRACLE Arriaza on Prior Functional Status Baseline Function- ADL's Independent Baseline Function- Mobility Independent Baseline Function- Gait Walk multiple miles downtown Baseline Function- Recreation/Hobbies Swimming at [facility] pool Current Functional Impairments (Reported) Functional Limitations- Mobility/Gait Pt unable to walk more than one block Functional Limitations- Recreation/ Pt has not gone to pool in [place] past two years. PT-OP-C Subjective Start: 11/28/18 17:41 Freq: Status: Active Protocol: Document 09/02/19 13:45 DCW (Rec: 09/02/19 14:28 DCW [id number]) OP-PT Subjective Patient Comments Patient Comments Pt reports she is doing well today, but was sore this weekend. She is unsure if it is because of her injections last week, or because she sat around reading all weekend. PT-OP-F Manual Assessment Start: 11/28/18 17:41 Freq: Status: Active Protocol: Document 07/24/19 15:15 DCW (Rec: 07/24/19 15:48 DCW [id number]) Manual Assessments Soft Tissue Assessment Soft Tissue Mobility Assessment Severe tone and tenderness to palpation 3/4:Wincing and withdraw: bilateral QL, left piriformis, left ITB Moderate tone and tenderness to palpation 2/4: Pain with wincing: right piriformis, right ITB PT-OP-K Range of Motion Start: 11/28/18 17:41 Freq: Status: Active Protocol: Document 07/24/19 15:15 DCW (Rec: 07/24/19 15:48 DCW [id number]) Lumbar Spine Range of Motion Lumbar Spine Active Degrees Testing Position Standing Flexion 59 Extension 10 Lateral Flexion Left 54 Lateral Flexion Right 56 ROM Limitations Pain Comments Lateral flexion measured in cm from fingertip to floor. Extension limited secondary to pain PT-OP-L Special Tests Start: 11/28/18 17:41 Freq: Status: Active Protocol: Document 07/24/19 15:15 DCW (Rec: 07/24/19 15:48 DCW [id number]) Special Tests Lumbar Spine Special Tests Manual Traction Test Results Improves symptoms Compression Test Results Improves symptoms Hip Special Tests Piriformis Test Results B tenderness at Piriformis PARAS Test Results Positive left ipsilateral lateral hip pain PT-OP-M Strength Start: 11/28/18 17:41 Freq: Status: Active Protocol: Document 07/24/19 15:15 DCW (Rec: 07/24/19 15:48 DCW [id number]) Hip Strength Hip Manual Muscle Testing Right Flexion (L2) 4 Good Abduction 4 Good Adduction 4 Good External Rotation 4 Good Internal Rotation 4+ Good+ Left Flexion (L2) 4- Good- Abduction 4- Good- Adduction 4- Good- External Rotation 4+ Good+ Internal Rotation 4+ Good+ Knee Strength Knee Manual Muscle Testing Right Flexion (S2) 4+ Good+ Extension (L3) 5 Normal Left Flexion (S2) 4+ Good+ Extension (L3) 5 Normal Ankle/Foot Strength Ankle and Foot Manual Muscle Testing Right Dorsiflexion (L4) 4 Good Plantarflexion (S1) 4 Good Left Dorsiflexion (L4) 4 Good Plantarflexion (S1) 4 Good PT-OP-O Vestibular Start: 04/30/19 17:56 Freq: Status: Active Protocol: Document 04/30/19 12:00 DCW (Rec: 05/01/19 09:44 DCW [id number]) Vestibular Assessment Visual Testing Smooth Pursuits Horizontal Questionable saccadic movement when following left Smooth Pursuits Vertical WNL Saccades Horizontal WNL Positional Testing [place]-Hallpike Negative Left,Negative Right Rolling Test Positive Left,Positive Right,> 60 Seconds Comments Vestibular Comments Ageotropic nystagmus with roll test, continued entire time pt was positioned PT-OP-Q Treatments Start: 11/28/18 17:41 Freq: Status: Active Protocol: Document 09/02/19 13:45 DCW (Rec: 09/02/19 14:28 DCW [id number]) Cardio Equipment Recumbent Stepper (Sci-Fit) Duration (Minutes) 6 Resistance 4 Seat Position 9 Gym Equipment Shuttle Recovery Unilateral Squats Resistance 37# Shuttle Recovery Platform Stable Reps/Time x25 Bilateral Squats Resistance 75# Shuttle Recovery Platform Stable Reps/Time x25 Shuttle Balance RED Details Red Comments Wide RONNIE /c ankle strategy, Staggered Stance Therapeutic Exercises Supine Exercises hamstring Side bilateral Reps/Minutes 30 secs hold x5 Comments L hamstirngs has higher tension than R Piriformis stretch Supine Exercise Name PT assisted. Side bilateral Reps/Minutes 20 secs hold Manual Therapy Treatment Soft Tissue Mobilization Piriformis Body Location B Piriformis Mobilization Type Strumming,Sustained Pressure Intensity/Depth Deep Body Position Sidelying L/S and glutes Body Location B L/S and glutes Mobilization Type Cross-Friction,Myofascial Release,Sustained Pressure Intensity/Depth Moderate Body Position Sidelying PT-OP-R Modalities Start: 11/28/18 17:41 Freq: Status: Active Protocol: Document 09/02/19 13:45 DCW (Rec: 09/02/19 14:28 DCW [id number]) Hot Pack/Cold Pack Treatment Hot Pack Location low back Patient Position Hooklying Treatment Duration (minutes) 10 Patient Tolerance Good PT-OP-T Assessment and Plan Start: 11/28/18 17:41 Freq: Status: Active Protocol: Document 09/02/19 13:45 DCW (Rec: 09/02/19 14:28 DCW [id number]) Physical Therapy Assessment Goals Five Impairment Positive Roll test Brim Cutter Goal (LTG) Pt to exhibit negative positional testing bilaterally LTG Duration 08/24/19 Four Impairment Core and hip weakness Short Term Goal (STG) Pt to demonstrate increased hip abduction bilaterally to 4 +/5 STG Duration 08/24/19 Brim Cutter Goal (LTG) Goal Met:Pt to exhibit core/ TrA MMT 4-/5 Advance to 4+/5 LTG Duration 09/23/19 Three Impairment Pt has not been able to swim for two years Shelter Goal (LTG) Pt to return to community pool independently for exercise with no increased back pain 02/21/19:Pt still limited due to open wounds on arms LTG Duration 09/23/19 Two Impairment Pt only able to walk <one square block due to pain Short Term Goal (STG) Pt to ambulate 1/2 mile with no increased pain STG Duration 08/24/19 - Improving Shelter Goal (LTG) Pt to ambulate one mile with no increased pain LTG Duration 09/23/19 One Impairment Pt does not have an appropriate home exercise program Short Term Goal (STG) Pt to be independent and compliant with an appropriate HEP STG Duration Met Assessment Summary Assessment Pt moving well today, able to ambulate with improved posture and less antalgic movements. Physical Therapy Plan Frequency and Duration Frequency of Treatment 2x/Week Duration of Treatment 12 weeks Plan of Care Start Date 07/24/19 Plan of Care End Date 10/16/19 Next Visit Focus/Plan Next Note Type Treatment Note Next Visit Plan cont hip mobility, pelvic tilt flexion based ex.
--- NOTE | 2019-09-05 13:50 | PT.OTN ---
Current Diagnoses Polyneuropathy, unspecified (09/05/19) Benign paroxysmal vertigo, left ear (09/05/19) Pain in right hip (09/05/19) Pain in left hip (09/05/19) Stiffness of right hip, not elsewhere classified (09/05/19) Stiffness of left hip, not elsewhere classified (09/05/19) Spondylolisthesis, lumbar region (09/05/19) Spondylosis without myelopathy or radiculopathy, lumbosacral region (09/05/19) Other intervertebral disc displacement, lumbar region (09/05/19) Muscle weakness (generalized) (09/05/19) Physical Therapy Treatment Note PT-OP-A Visit Information Start: 11/28/18 17:41 Freq: Status: Active Protocol: Document 09/05/19 13:03 HH (Rec: 09/05/19 13:49 HH [id number]) Out-Patient Physical Therapy Visit Information Visit Information Visit Type Treatment Note Visit Start Time 13:03 Visit Stop Time 13:48 Total Visit Minutes 45 Visit Number 35 Number of DROP TESTER Visits 0 PT-OP-B Current Condition Start: 11/28/18 17:41 Freq: Status: Active Protocol: Document 04/30/19 12:00 DCW (Rec: 04/30/19 17:55 DCW [id number]) Current Condition History of Current Condition Onset Date Two years Current Complaints Worsening back pain History of Current Condition Pt is a 78 year old female presenting with progressive low back pain. Pt notes she has had lumbar issues off and on for 20 years, but that six years ago, she was caring for her life partner, who was going through an illness at the time, and strained her back. It has been bad since then, and specifically worsening over the last two years. Additionally, pt notes that she pulled something on Monday in her left posterior hip, which has been causing even more pain and difficulty in her getting around. Pt notes that if she is sitting or lying down, she doesn't feel too bad, but if she stays in a position too samir, she has a large increase in pain when she tries to get up and move around. Pt feels like she has substantially decreased in her level of activity tolerance and overall fitness level. Pt reports that she tries to walk one block every day, and frequently is unable to do so. Pt also has in the past swam 3x/week, and now has not been to the pool in two years. ADDENDUM 04/30/19: Pt has a new referral for eval/treat of ongoing dizziness. Pt notes that dizziness occurs in episodes lasting seconds, and is brought on by lying back in bed or bending over to harness the dog. 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 The most prominent level of degenerative change is L3-L4, where there is a left lateral recess disc extrusion, with associated moderate to severe central canal narrowing. Moderate to severe bilateral neural foraminal narrowing is also seen at this level. Impression taken from Objective history of pt note from [facility] Arriaza on Prior Functional Status Baseline Function- ADL's Independent Baseline Function- Mobility Independent Baseline Function- Gait Walk multiple miles downtown Baseline Function- Recreation/Hobbies Swimming at community pool Current Functional Impairments (Reported) Functional Limitations- Mobility/Gait Pt unable to walk more than one block Functional Limitations- Recreation/ Pt has not gone to pool in [place] past two years. PT-OP-C Subjective Start: 11/28/18 17:41 Freq: Status: Active Protocol: Document 09/05/19 13:03 HH (Rec: 09/05/19 13:49 HH [id number]) OP-PT Subjective Patient Comments Patient Comments Im feeling pretty good today but no so much yesterday. PT-OP-F Manual Assessment Start: 11/28/18 17:41 Freq: Status: Active Protocol: Document 07/24/19 15:15 DCW (Rec: 07/24/19 15:48 DCW [id number]) Manual Assessments Soft Tissue Assessment Soft Tissue Mobility Assessment Severe tone and tenderness to palpation 3/4:Wincing and withdraw: bilateral QL, left piriformis, left ITB Moderate tone and tenderness to palpation 2/4: Pain with wincing: right piriformis, right ITB PT-OP-K Range of Motion Start: 11/28/18 17:41 Freq: Status: Active Protocol: Document 07/24/19 15:15 DCW (Rec: 07/24/19 15:48 DCW [id number]) Lumbar Spine Range of Motion Lumbar Spine Active Degrees Testing Position Standing Flexion 59 Extension 10 Lateral Flexion Left 54 Lateral Flexion Right 56 ROM Limitations Pain Comments Lateral flexion measured in cm from fingertip to floor. Extension limited secondary to pain PT-OP-L Special Tests Start: 11/28/18 17:41 Freq: Status: Active Protocol: Document 07/24/19 15:15 DCW (Rec: 07/24/19 15:48 DCW [id number]) Special Tests Lumbar Spine Special Tests Manual Traction Test Results Improves symptoms Compression Test Results Improves symptoms Hip Special Tests Piriformis Test Results B tenderness at Piriformis PARAS Test Results Positive left ipsilateral lateral hip pain PT-OP-M Strength Start: 11/28/18 17:41 Freq: Status: Active Protocol: Document 07/24/19 15:15 DCW (Rec: 07/24/19 15:48 DCW [id number]) Hip Strength Hip Manual Muscle Testing Right Flexion (L2) 4 Good Abduction 4 Good Adduction 4 Good External Rotation 4 Good Internal Rotation 4+ Good+ Left Flexion (L2) 4- Good- Abduction 4- Good- Adduction 4- Good- External Rotation 4+ Good+ Internal Rotation 4+ Good+ Knee Strength Knee Manual Muscle Testing Right Flexion (S2) 4+ Good+ Extension (L3) 5 Normal Left Flexion (S2) 4+ Good+ Extension (L3) 5 Normal Ankle/Foot Strength Ankle and Foot Manual Muscle Testing Right Dorsiflexion (L4) 4 Good Plantarflexion (S1) 4 Good Left Dorsiflexion (L4) 4 Good Plantarflexion (S1) 4 Good PT-OP-O Vestibular Start: 04/30/19 17:56 Freq: Status: Active Protocol: Document 04/30/19 12:00 DCW (Rec: 05/01/19 09:44 DCW [id number]) Vestibular Assessment Visual Testing Smooth Pursuits Horizontal Questionable saccadic movement when following left Smooth Pursuits Vertical WNL Saccades Horizontal WNL Positional Testing [place]-Hallpike Negative Left,Negative Right Rolling Test Positive Left,Positive Right,> 60 Seconds Comments Vestibular Comments Ageotropic nystagmus with roll test, continued entire time pt was positioned PT-OP-Q Treatments Start: 11/28/18 17:41 Freq: Status: Active Protocol: Document 09/05/19 13:03 HH (Rec: 09/05/19 13:49 HH [id number]) Cardio Equipment Recumbent Stepper (Sci-Fit) Duration (Minutes) 6 Resistance 4 Seat Position 9 Therapeutic Exercises Supine Exercises hip adductor stretch Supine Exercise Name supine Side bilateral Reps/Minutes 10 sec x 5 pelvic tilt Supine Exercise Name focus on PPT Side bilateral Reps/Minutes 8 x2 Comments no pain noted jamarcus stretch Supine Exercise Name PT assisted with hip extension Side bilateral Reps/Minutes 10 secs x5 Comments Pt is able to keep lumbar spine neutral, no pain noted. bridges Supine Exercise Name cue son neutrla spine, work on hip extension Side bilateral Reps/Minutes 6 x 3 Comments cues to prevent lumbar extension Sitting Exercises pelvic tilts Side bilateral Reps/Minutes 2 mins Comments pt has difficulty isolating lumbar spine. tends to pelvic tilt with t-spine reaches Sitting Exercise Name forward bending Side bilateral Equipment Used with cane Reps/Minutes 8 x2 Comments for lumbar flexion, Manual Therapy Treatment Soft Tissue Mobilization B quads Mobilization Type Rolling,Sustained Pressure, Trigger Point Release Intensity/Depth Moderate Body Position Supine Comments rolling pin on quads L/S and glutes Body Location B L/S and glutes Mobilization Type Cross-Friction,Myofascial Release,Sustained Pressure Intensity/Depth Moderate Body Position Sidelying PT-OP-R Modalities Start: 11/28/18 17:41 Freq: Status: Active Protocol: Document 09/05/19 13:03 HH (Rec: 09/05/19 13:49 [id number]) Hot Pack/Cold Pack Treatment Hot Pack Location low back Patient Position Hooklying Treatment Duration (minutes) 10 Patient Tolerance Good PT-OP-T Assessment and Plan Start: 11/28/18 17:41 Freq: Status: Active Protocol: Document 09/05/19 13:03 HH (Rec: 09/05/19 13:49 [id number]) Physical Therapy Assessment Goals Five Impairment Positive Roll test Signing Teacher Goal (LTG) Pt to exhibit negative positional testing bilaterally LTG Duration 08/24/19 Four Impairment Core and hip weakness Short Term Goal (STG) Pt to demonstrate increased hip abduction bilaterally to 4 +/5 STG Duration 08/24/19 Signing Teacher Goal (LTG) Goal Met:Pt to exhibit core/ TrA MMT 4-/5 Advance to 4+/5 LTG Duration 09/23/19 Three Impairment Pt has not been able to swim for two years Shelter Goal (LTG) Pt to return to community pool independently for exercise with no increased back pain 02/21/19:Pt still limited due to open wounds on arms LTG Duration 09/23/19 Two Impairment Pt only able to walk <one square block due to pain Short Term Goal (STG) Pt to ambulate 1/2 mile with no increased pain STG Duration 08/24/19 - Improving Shelter Goal (LTG) Pt to ambulate one mile with no increased pain LTG Duration 09/23/19 One Impairment Pt does not have an appropriate home exercise program Short Term Goal (STG) Pt to be independent and compliant with an appropriate HEP STG Duration Met Assessment Summary Assessment Pt has pretty good tolerance today with minimal pain. Her tolerance to hip extension/ jamarcus stretch position also improved. Cont POC 2/week x 8 weeks Physical Therapy Plan Next Visit Focus/Plan Next Note Type Treatment Note Next Visit Plan cont hip mobility, pelvic tilt flexion based ex. Isolated lumbar movements
--- NOTE | 2019-09-10 16:50 | PT.OTN ---
Current Diagnoses Polyneuropathy, unspecified (09/10/19) Benign paroxysmal vertigo, left ear (09/10/19) Pain in right hip (09/10/19) Pain in left hip (09/10/19) Stiffness of right hip, not elsewhere classified (09/10/19) Stiffness of left hip, not elsewhere classified (09/10/19) Spondylolisthesis, lumbar region (09/10/19) Spondylosis without myelopathy or radiculopathy, lumbosacral region (09/10/19) Other intervertebral disc displacement, lumbar region (09/10/19) Muscle weakness (generalized) (09/10/19) Physical Therapy Treatment Note PT-OP-A Visit Information Start: 11/28/18 17:41 Freq: Status: Active Protocol: Document 09/10/19 16:06 HH (Rec: 09/10/19 16:49 HH [id number]) Out-Patient Physical Therapy Visit Information Visit Information Visit Type Treatment Note Visit Start Time 16:04 Visit Stop Time 16:50 Total Visit Minutes 46 Visit Number 36 Number of ADJUSTMENT CLERK Visits 0 PT-OP-B Current Condition Start: 11/28/18 17:41 Freq: Status: Active Protocol: Document 04/30/19 12:00 DCW (Rec: 04/30/19 17:55 DCW [id number]) Current Condition History of Current Condition Onset Date Two years Current Complaints Worsening back pain History of Current Condition Pt is a 78 year old female presenting with progressive low back pain. Pt notes she has had lumbar issues off and on for 20 years, but that six years ago, she was caring for her life partner, who was going through an illness at the time, and strained her back. It has been bad since then, and specifically worsening over the last two years. Additionally, pt notes that she pulled something on Monday in her left posterior hip, which has been causing even more pain and difficulty in her getting around. Pt notes that if she is sitting or lying down, she doesn't feel too bad, but if she stays in a position too samir, she has a large increase in pain when she tries to get up and move around. Pt feels like she has substantially decreased in her level of activity tolerance and overall fitness level. Pt reports that she tries to walk one block every day, and frequently is unable to do so. Pt also has in the past swam 3x/week, and now has not been to the pool in two years. ADDENDUM 04/30/19: Pt has a new referral for eval/treat of ongoing dizziness. Pt notes that dizziness occurs in episodes lasting seconds, and is brought on by lying back in bed or bending over to harness the dog. 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 The most prominent level of degenerative change is L3-L4, where there is a left lateral recess disc extrusion, with associated moderate to severe central canal narrowing. Moderate to severe bilateral neural foraminal narrowing is also seen at this level. Impression taken from Objective history of pt note from MIRACLE Arriaza on Prior Functional Status Baseline Function- ADL's Independent Baseline Function- Mobility Independent Baseline Function- Gait Walk multiple miles downtown Baseline Function- Recreation/Hobbies Swimming at community pool Current Functional Impairments (Reported) Functional Limitations- Mobility/Gait Pt unable to walk more than one block Functional Limitations- Recreation/ Pt has not gone to pool in [place] past two years. PT-OP-C Subjective Start: 11/28/18 17:41 Freq: Status: Active Protocol: Document 09/10/19 16:06 HH (Rec: 09/10/19 16:49 HH [id number]) OP-PT Subjective Patient Comments Patient Comments Cassidy been doing pretty good for the past couple days. Cassidy been able to walk a bit faster . Patient Reported Progress Improving PT-OP-F Manual Assessment Start: 11/28/18 17:41 Freq: Status: Active Protocol: Document 07/24/19 15:15 DCW (Rec: 07/24/19 15:48 DCW [id number]) Manual Assessments Soft Tissue Assessment Soft Tissue Mobility Assessment Severe tone and tenderness to palpation 3/4:Wincing and withdraw: bilateral QL, left piriformis, left ITB Moderate tone and tenderness to palpation 2/4: Pain with wincing: right piriformis, right ITB PT-OP-K Range of Motion Start: 11/28/18 17:41 Freq: Status: Active Protocol: Document 07/24/19 15:15 DCW (Rec: 07/24/19 15:48 DCW [id number]) Lumbar Spine Range of Motion Lumbar Spine Active Degrees Testing Position Standing Flexion 59 Extension 10 Lateral Flexion Left 54 Lateral Flexion Right 56 ROM Limitations Pain Comments Lateral flexion measured in cm from fingertip to floor. Extension limited secondary to pain PT-OP-L Special Tests Start: 11/28/18 17:41 Freq: Status: Active Protocol: Document 07/24/19 15:15 DCW (Rec: 07/24/19 15:48 DCW [id number]) Special Tests Lumbar Spine Special Tests Manual Traction Test Results Improves symptoms Compression Test Results Improves symptoms Hip Special Tests Piriformis Test Results B tenderness at Piriformis PARAS Test Results Positive left ipsilateral lateral hip pain PT-OP-M Strength Start: 11/28/18 17:41 Freq: Status: Active Protocol: Document 07/24/19 15:15 DCW (Rec: 07/24/19 15:48 DCW [id number]) Hip Strength Hip Manual Muscle Testing Right Flexion (L2) 4 Good Abduction 4 Good Adduction 4 Good External Rotation 4 Good Internal Rotation 4+ Good+ Left Flexion (L2) 4- Good- Abduction 4- Good- Adduction 4- Good- External Rotation 4+ Good+ Internal Rotation 4+ Good+ Knee Strength Knee Manual Muscle Testing Right Flexion (S2) 4+ Good+ Extension (L3) 5 Normal Left Flexion (S2) 4+ Good+ Extension (L3) 5 Normal Ankle/Foot Strength Ankle and Foot Manual Muscle Testing Right Dorsiflexion (L4) 4 Good Plantarflexion (S1) 4 Good Left Dorsiflexion (L4) 4 Good Plantarflexion (S1) 4 Good PT-OP-O Vestibular Start: 04/30/19 17:56 Freq: Status: Active Protocol: Document 04/30/19 12:00 DCW (Rec: 05/01/19 09:44 DCW [id number]) Vestibular Assessment Visual Testing Smooth Pursuits Horizontal Questionable saccadic movement when following left Smooth Pursuits Vertical WNL Saccades Horizontal WNL Positional Testing [place]-Hallpike Negative Left,Negative Right Rolling Test Positive Left,Positive Right,> 60 Seconds Comments Vestibular Comments Ageotropic nystagmus with roll test, continued entire time pt was positioned PT-OP-Q Treatments Start: 11/28/18 17:41 Freq: Status: Active Protocol: Document 09/10/19 16:06 HH (Rec: 09/10/19 16:49 HH [id number]) Cardio Equipment Recumbent Stepper (Sci-Fit) Duration (Minutes) 6 Resistance 4 Seat Position 9 Therapeutic Exercises Supine Exercises pelvic tilt Supine Exercise Name focus on PPT Side bilateral Reps/Minutes 8 x2 Comments no pain noted jamarcus stretch Supine Exercise Name PT assisted with hip extension Side bilateral Reps/Minutes 10 secs x5 Comments Pt is able to keep lumbar spine neutral, no pain noted. bridges Supine Exercise Name cue son neutrla spine, work on hip extension Side bilateral Reps/Minutes 6 x 3 Comments cues to prevent lumbar extension Sitting Exercises STS Side bilateral Reps/Minutes 5 x2 pelvic tilts Side bilateral Reps/Minutes 12 x 2 Comments has improved isolated control Standing Exercises staggered stance Standing Exercise Name AP weight shift Side bilateral Reps/Minutes 2 mins Comments no support PT-OP-R Modalities Start: 11/28/18 17:41 Freq: Status: Active Protocol: Document 09/10/19 16:06 (Rec: 09/10/19 16:49 [id number]) Hot Pack/Cold Pack Treatment Hot Pack Location low back Patient Position Hooklying Treatment Duration (minutes) 10 Patient Tolerance Good PT-OP-T Assessment and Plan Start: 11/28/18 17:41 Freq: Status: Active Protocol: Document 09/10/19 16:06 (Rec: 09/10/19 16:49 [id number]) Physical Therapy Assessment Goals Four Impairment Core and hip weakness Short Term Goal (STG) Pt to demonstrate increased hip abduction bilaterally to 4 +/5 STG Duration 08/24/19 Fdc Goal (LTG) Goal Met:Pt to exhibit core/ TrA MMT 4-/5 Advance to 4+/5 LTG Duration 09/23/19 Three Impairment Pt has not been able to swim for two years Employee Service Officer Goal (LTG) Pt to return to community pool independently for exercise with no increased back pain 02/21/19:Pt still limited due to open wounds on arms LTG Duration 09/23/19 Two Impairment Pt only able to walk <one square block due to pain Short Term Goal (STG) Pt to ambulate 1/2 mile with no increased pain STG Duration 08/24/19 - Improving Fdc Goal (LTG) Pt to ambulate one mile with no increased pain LTG Duration 09/23/19 One Impairment Pt does not have an appropriate home exercise program Short Term Goal (STG) Pt to be independent and compliant with an appropriate HEP STG Duration Met Assessment Summary Assessment Pt has been doing good since last week. She shows better tolerance for hip flexor stretch and improved pelvic tilt control. Will cont POC 2x / week x 4 weeks. Physical Therapy Plan Next Visit Focus/Plan Next Note Type Treatment Note Next Visit Plan cont hip mobility, pelvic tilt flexion based ex. Isolated lumbar movements
--- NOTE | 2019-09-12 17:36 | PT.OTN ---
Current Diagnoses Polyneuropathy, unspecified (09/12/19) Benign paroxysmal vertigo, left ear (09/12/19) Pain in right hip (09/12/19) Pain in left hip (09/12/19) Stiffness of right hip, not elsewhere classified (09/12/19) Stiffness of left hip, not elsewhere classified (09/12/19) Spondylolisthesis, lumbar region (09/12/19) Spondylosis without myelopathy or radiculopathy, lumbosacral region (09/12/19) Other intervertebral disc displacement, lumbar region (09/12/19) Muscle weakness (generalized) (09/12/19) Physical Therapy Treatment Note PT-OP-A Visit Information Start: 11/28/18 17:41 Freq: Status: Active Protocol: Document 09/12/19 16:45 DCW (Rec: 09/12/19 17:36 DCW [id number]) Out-Patient Physical Therapy Visit Information Visit Information Visit Type Treatment Note Visit Start Time 16:45 Visit Stop Time 17:40 Total Visit Minutes 55 Visit Number 37 Number of COOK TORTILLA Visits 0 PT-OP-B Current Condition Start: 11/28/18 17:41 Freq: Status: Active Protocol: Document 04/30/19 12:00 DCW (Rec: 04/30/19 17:55 DCW [id number]) Current Condition History of Current Condition Onset Date Two years Current Complaints Worsening back pain History of Current Condition Pt is a 78 year old female presenting with progressive low back pain. Pt notes she has had lumbar issues off and on for 20 years, but that six years ago, she was caring for her life partner, who was going through an illness at the time, and strained her back. It has been bad since then, and specifically worsening over the last two years. Additionally, pt notes that she pulled something on Monday in her left posterior hip, which has been causing even more pain and difficulty in her getting around. Pt notes that if she is sitting or lying down, she doesn't feel too bad, but if she stays in a position too samir, she has a large increase in pain when she tries to get up and move around. Pt feels like she has substantially decreased in her level of activity tolerance and overall fitness level. Pt reports that she tries to walk one block every day, and frequently is unable to do so. Pt also has in the past swam 3x/week, and now has not been to the pool in two years. ADDENDUM 04/30/19: Pt has a new referral for eval/treat of ongoing dizziness. Pt notes that dizziness occurs in episodes lasting seconds, and is brought on by lying back in bed or bending over to harness the dog. 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 The most prominent level of degenerative change is L3-L4, where there is a left lateral recess disc extrusion, with associated moderate to severe central canal narrowing. Moderate to severe bilateral neural foraminal narrowing is also seen at this level. Impression taken from Objective history of pt note from MIRACLE Arriaza on Prior Functional Status Baseline Function- ADL's Independent Baseline Function- Mobility Independent Baseline Function- Gait Walk multiple miles downtown Baseline Function- Recreation/Hobbies Swimming at community pool Current Functional Impairments (Reported) Functional Limitations- Mobility/Gait Pt unable to walk more than one block Functional Limitations- Recreation/ Pt has not gone to pool in [place] past two years. PT-OP-C Subjective Start: 11/28/18 17:41 Freq: Status: Active Protocol: Document 09/12/19 16:45 DCW (Rec: 09/12/19 17:36 DCW [id number]) OP-PT Subjective Patient Comments Patient Comments Pt reports she has been having a great past week, until today, when her back started getting sore. PT-OP-F Manual Assessment Start: 11/28/18 17:41 Freq: Status: Active Protocol: Document 07/24/19 15:15 DCW (Rec: 07/24/19 15:48 DCW [id number]) Manual Assessments Soft Tissue Assessment Soft Tissue Mobility Assessment Severe tone and tenderness to palpation 3/4:Wincing and withdraw: bilateral QL, left piriformis, left ITB Moderate tone and tenderness to palpation 2/4: Pain with wincing: right piriformis, right ITB PT-OP-K Range of Motion Start: 11/28/18 17:41 Freq: Status: Active Protocol: Document 07/24/19 15:15 DCW (Rec: 07/24/19 15:48 DCW [id number]) Lumbar Spine Range of Motion Lumbar Spine Active Degrees Testing Position Standing Flexion 59 Extension 10 Lateral Flexion Left 54 Lateral Flexion Right 56 ROM Limitations Pain Comments Lateral flexion measured in cm from fingertip to floor. Extension limited secondary to pain PT-OP-L Special Tests Start: 11/28/18 17:41 Freq: Status: Active Protocol: Document 07/24/19 15:15 DCW (Rec: 07/24/19 15:48 DCW [id number]) Special Tests Lumbar Spine Special Tests Manual Traction Test Results Improves symptoms Compression Test Results Improves symptoms Hip Special Tests Piriformis Test Results B tenderness at Piriformis PARAS Test Results Positive left ipsilateral lateral hip pain PT-OP-M Strength Start: 11/28/18 17:41 Freq: Status: Active Protocol: Document 07/24/19 15:15 DCW (Rec: 07/24/19 15:48 DCW [id number]) Hip Strength Hip Manual Muscle Testing Right Flexion (L2) 4 Good Abduction 4 Good Adduction 4 Good External Rotation 4 Good Internal Rotation 4+ Good+ Left Flexion (L2) 4- Good- Abduction 4- Good- Adduction 4- Good- External Rotation 4+ Good+ Internal Rotation 4+ Good+ Knee Strength Knee Manual Muscle Testing Right Flexion (S2) 4+ Good+ Extension (L3) 5 Normal Left Flexion (S2) 4+ Good+ Extension (L3) 5 Normal Ankle/Foot Strength Ankle and Foot Manual Muscle Testing Right Dorsiflexion (L4) 4 Good Plantarflexion (S1) 4 Good Left Dorsiflexion (L4) 4 Good Plantarflexion (S1) 4 Good PT-OP-O Vestibular Start: 04/30/19 17:56 Freq: Status: Active Protocol: Document 04/30/19 12:00 DCW (Rec: 05/01/19 09:44 DCW [id number]) Vestibular Assessment Visual Testing Smooth Pursuits Horizontal Questionable saccadic movement when following left Smooth Pursuits Vertical WNL Saccades Horizontal WNL Positional Testing [place]-Hallpike Negative Left,Negative Right Rolling Test Positive Left,Positive Right,> 60 Seconds Comments Vestibular Comments Ageotropic nystagmus with roll test, continued entire time pt was positioned PT-OP-Q Treatments Start: 11/28/18 17:41 Freq: Status: Active Protocol: Document 09/12/19 16:45 DCW (Rec: 09/12/19 17:36 DCW [id number]) Cardio Equipment Recumbent Stepper (Sci-Fit) Duration (Minutes) 6 Resistance 4 Seat Position 9 Gym Equipment Shuttle Recovery Unilateral Squats Resistance 37# Shuttle Recovery Platform Stable Reps/Time x25 Bilateral Squats Resistance 75# Shuttle Recovery Platform Stable Reps/Time x25 Therapeutic Exercises Standing Exercises staggered stance Standing Exercise Name AP weight shift Side bilateral Reps/Minutes 2 mins Comments no support Other Exercises Resisted Ambulation Other Exercise Name Side-stepping Resistance Green Manual Therapy Treatment Soft Tissue Mobilization Piriformis Body Location B Piriformis Mobilization Type Strumming,Sustained Pressure Intensity/Depth Deep Body Position Sidelying L/S and glutes Body Location B L/S and glutes Mobilization Type Cross-Friction,Myofascial Release,Sustained Pressure Intensity/Depth Moderate Body Position Sidelying PT-OP-R Modalities Start: 11/28/18 17:41 Freq: Status: Active Protocol: Document 09/12/19 16:45 DCW (Rec: 09/12/19 17:36 DCW [id number]) Hot Pack/Cold Pack Treatment Hot Pack Location low back Patient Position Hooklying Treatment Duration (minutes) 10 Patient Tolerance Good PT-OP-T Assessment and Plan Start: 11/28/18 17:41 Freq: Status: Active Protocol: Document 09/12/19 16:45 DCW (Rec: 09/12/19 17:36 DCW [id number]) Physical Therapy Assessment Goals Four Impairment Core and hip weakness Short Term Goal (STG) Pt to demonstrate increased hip abduction bilaterally to 4 +/5 STG Duration 08/24/19 Senior Living Goal (LTG) Goal Met:Pt to exhibit core/ TrA MMT 4-/5 Advance to 4+/5 LTG Duration 09/23/19 Three Impairment Pt has not been able to swim for two years Senior Living Goal (LTG) Pt to return to community pool independently for exercise with no increased back pain 02/21/19:Pt still limited due to open wounds on arms LTG Duration 09/23/19 Two Impairment Pt only able to walk <one square block due to pain Short Term Goal (STG) Pt to ambulate 1/2 mile with no increased pain STG Duration 08/24/19 - Improving Programmer Analyst Goal (LTG) Pt to ambulate one mile with no increased pain LTG Duration 09/23/19 One Impairment Pt does not have an appropriate home exercise program Short Term Goal (STG) Pt to be independent and compliant with an appropriate HEP STG Duration Met Assessment Summary Assessment Pt feeling better today after manual therapy, still reporting some L/S back pain, but displayed improved mobility. Physical Therapy Plan Frequency and Duration Frequency of Treatment 2x/Week Duration of Treatment 12 weeks Plan of Care Start Date 07/24/19 Plan of Care End Date 10/16/19 Therapeutic Interventions Therapeutic Interventions Aquatic Therapy,Home Exercise Program,Joint Mobilizations, Manual Therapy,Self-Care/Home Management,Soft Tissue Mobilization,Therapeutic Activities,Therapeutic Exercises Modalities Cold Pack/Ice Massage,Electric Stimulation,Hot Packs, Ultrasound Next Visit Focus/Plan Next Note Type Treatment Note Next Visit Plan cont hip mobility, pelvic tilt flexion based ex. Isolated lumbar movements
--- NOTE | 2019-09-24 12:02 | PT.OTN ---
Current Diagnoses Polyneuropathy, unspecified (09/24/19) Benign paroxysmal vertigo, left ear (09/24/19) Pain in right hip (09/24/19) Pain in left hip (09/24/19) Stiffness of right hip, not elsewhere classified (09/24/19) Stiffness of left hip, not elsewhere classified (09/24/19) Spondylolisthesis, lumbar region (09/24/19) Spondylosis without myelopathy or radiculopathy, lumbosacral region (09/24/19) Other intervertebral disc displacement, lumbar region (09/24/19) Muscle weakness (generalized) (09/24/19) Physical Therapy Treatment Note PT-OP-A Visit Information Start: 11/28/18 17:41 Freq: Status: Active Protocol: Document 09/24/19 11:15 DCW (Rec: 09/24/19 12:01 DCW [id number]) Out-Patient Physical Therapy Visit Information Visit Information Visit Type Treatment Note Visit Start Time 11:15 Visit Stop Time 12:10 Total Visit Minutes 55 Visit Number 38 Number of SOFT CRAB SHEDDER Visits 0 PT-OP-B Current Condition Start: 11/28/18 17:41 Freq: Status: Active Protocol: Document 04/30/19 12:00 DCW (Rec: 04/30/19 17:55 DCW [id number]) Current Condition History of Current Condition Onset Date Two years Current Complaints Worsening back pain History of Current Condition Pt is a 78 year old female presenting with progressive low back pain. Pt notes she has had lumbar issues off and on for 20 years, but that six years ago, she was caring for her life partner, who was going through an illness at the time, and strained her back. It has been bad since then, and specifically worsening over the last two years. Additionally, pt notes that she pulled something on Monday in her left posterior hip, which has been causing even more pain and difficulty in her getting around. Pt notes that if she is sitting or lying down, she doesn't feel too bad, but if she stays in a position too samir, she has a large increase in pain when she tries to get up and move around. Pt feels like she has substantially decreased in her level of activity tolerance and overall fitness level. Pt reports that she tries to walk one block every day, and frequently is unable to do so. Pt also has in the past swam 3x/week, and now has not been to the pool in two years. ADDENDUM 04/30/19: Pt has a new referral for eval/treat of ongoing dizziness. Pt notes that dizziness occurs in episodes lasting seconds, and is brought on by lying back in bed or bending over to harness the dog. 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 The most prominent level of degenerative change is L3-L4, where there is a left lateral recess disc extrusion, with associated moderate to severe central canal narrowing. Moderate to severe bilateral neural foraminal narrowing is also seen at this level. Impression taken from Objective history of pt note from [facility] Arriaza on Prior Functional Status Baseline Function- ADL's Independent Baseline Function- Mobility Independent Baseline Function- Gait Walk multiple miles downtown Baseline Function- Recreation/Hobbies Swimming at community pool Current Functional Impairments (Reported) Functional Limitations- Mobility/Gait Pt unable to walk more than one block Functional Limitations- Recreation/ Pt has not gone to pool in [place] past two years. PT-OP-C Subjective Start: 11/28/18 17:41 Freq: Status: Active Protocol: Document 09/24/19 11:15 DCW (Rec: 09/24/19 12:01 DCW [id number]) OP-PT Subjective Patient Comments Patient Comments Pt apologizes for missing her appointment last week, says she had an attack of gout that was worse than any I have had in years, and she could barely walk. PT-OP-F Manual Assessment Start: 11/28/18 17:41 Freq: Status: Active Protocol: Document 07/24/19 15:15 DCW (Rec: 07/24/19 15:48 DCW [id number]) Manual Assessments Soft Tissue Assessment Soft Tissue Mobility Assessment Severe tone and tenderness to palpation 3/4:Wincing and withdraw: bilateral QL, left piriformis, left ITB Moderate tone and tenderness to palpation 2/4: Pain with wincing: right piriformis, right ITB PT-OP-K Range of Motion Start: 11/28/18 17:41 Freq: Status: Active Protocol: Document 07/24/19 15:15 DCW (Rec: 07/24/19 15:48 DCW [id number]) Lumbar Spine Range of Motion Lumbar Spine Active Degrees Testing Position Standing Flexion 59 Extension 10 Lateral Flexion Left 54 Lateral Flexion Right 56 ROM Limitations Pain Comments Lateral flexion measured in cm from fingertip to floor. Extension limited secondary to pain PT-OP-L Special Tests Start: 11/28/18 17:41 Freq: Status: Active Protocol: Document 07/24/19 15:15 DCW (Rec: 07/24/19 15:48 DCW [id number]) Special Tests Lumbar Spine Special Tests Manual Traction Test Results Improves symptoms Compression Test Results Improves symptoms Hip Special Tests Piriformis Test Results B tenderness at Piriformis PARAS Test Results Positive left ipsilateral lateral hip pain PT-OP-M Strength Start: 11/28/18 17:41 Freq: Status: Active Protocol: Document 07/24/19 15:15 DCW (Rec: 07/24/19 15:48 DCW [id number]) Hip Strength Hip Manual Muscle Testing Right Flexion (L2) 4 Good Abduction 4 Good Adduction 4 Good External Rotation 4 Good Internal Rotation 4+ Good+ Left Flexion (L2) 4- Good- Abduction 4- Good- Adduction 4- Good- External Rotation 4+ Good+ Internal Rotation 4+ Good+ Knee Strength Knee Manual Muscle Testing Right Flexion (S2) 4+ Good+ Extension (L3) 5 Normal Left Flexion (S2) 4+ Good+ Extension (L3) 5 Normal Ankle/Foot Strength Ankle and Foot Manual Muscle Testing Right Dorsiflexion (L4) 4 Good Plantarflexion (S1) 4 Good Left Dorsiflexion (L4) 4 Good Plantarflexion (S1) 4 Good PT-OP-O Vestibular Start: 04/30/19 17:56 Freq: Status: Active Protocol: Document 04/30/19 12:00 DCW (Rec: 05/01/19 09:44 DCW [id number]) Vestibular Assessment Visual Testing Smooth Pursuits Horizontal Questionable saccadic movement when following left Smooth Pursuits Vertical WNL Saccades Horizontal WNL Positional Testing Rush-Hallpike Negative Left,Negative Right Rolling Test Positive Left,Positive Right,> 60 Seconds Comments Vestibular Comments Ageotropic nystagmus with roll test, continued entire time pt was positioned PT-OP-Q Treatments Start: 11/28/18 17:41 Freq: Status: Active Protocol: Document 07/14/20 11:15 DCW (Rec: 09/24/19 12:01 DCW [id number]) Cardio Equipment Recumbent Stepper (Sci-Fit) Duration (Minutes) 6 Resistance 4 Seat Position 9 Gym Equipment Shuttle Recovery Unilateral Squats Resistance 37# Shuttle Recovery Platform Stable Reps/Time x25 Bilateral Squats Resistance 75# Shuttle Recovery Platform Stable Reps/Time x25 Shuttle Rebound red Exercise Details WBOS, Staggered Therapeutic Exercises Standing Exercises Extension Standing Exercise Name Hip Extension Resistance Green Equipment Used T-band Other Exercises Resisted Ambulation Other Exercise Name Side-stepping Resistance Green Manual Therapy Treatment Soft Tissue Mobilization Piriformis Body Location B Piriformis Mobilization Type Strumming,Sustained Pressure Intensity/Depth Deep Body Position Sidelying L/S and glutes Body Location B L/S and glutes Mobilization Type Cross-Friction,Myofascial Release,Sustained Pressure Intensity/Depth Moderate Body Position Sidelying PT-OP-R Modalities Start: 11/28/18 17:41 Freq: Status: Active Protocol: Document 09/24/19 11:15 DCW (Rec: 09/24/19 12:01 DCW [id number]) Hot Pack/Cold Pack Treatment Hot Pack Location low back Patient Position Hooklying Treatment Duration (minutes) 10 Patient Tolerance Good PT-OP-T Assessment and Plan Start: 11/28/18 17:41 Freq: Status: Active Protocol: Document 09/24/19 11:15 DCW (Rec: 09/24/19 12:01 DCW [id number]) Physical Therapy Assessment Goals Four Impairment Core and hip weakness Short Term Goal (STG) Pt to demonstrate increased hip abduction bilaterally to 4 +/5 STG Duration 08/24/19 Alf Goal (LTG) Goal Met:Pt to exhibit core/ TrA MMT 4-/5 Advance to 4+/5 LTG Duration 09/23/19 Three Impairment Pt has not been able to swim for two years Alf Goal (LTG) Pt to return to community pool independently for exercise with no increased back pain 02/21/19:Pt still limited due to open wounds on arms LTG Duration 09/23/19 Two Impairment Pt only able to walk <one square block due to pain Short Term Goal (STG) Pt to ambulate 1/2 mile with no increased pain STG Duration 08/24/19 - Improving Alf Goal (LTG) Pt to ambulate one mile with no increased pain LTG Duration 09/23/19 One Impairment Pt does not have an appropriate home exercise program Short Term Goal (STG) Pt to be independent and compliant with an appropriate HEP STG Duration Met Assessment Summary Assessment Pt did very well today, moving with less pain, able to ambulate with no assistive device today. Physical Therapy Plan Frequency and Duration Frequency of Treatment 2x/Week Duration of Treatment 12 weeks Plan of Care Start Date 07/24/19 Plan of Care End Date 10/16/19 Therapeutic Interventions Therapeutic Interventions Aquatic Therapy,Home Exercise Program,Joint Mobilizations, Manual Therapy,Self-Care/Home Management,Soft Tissue Mobilization,Therapeutic Activities,Therapeutic Exercises Modalities Cold Pack/Ice Massage,Electric Stimulation,Hot Packs, Ultrasound Next Visit Focus/Plan Next Note Type Treatment Note Next Visit Plan cont hip mobility, pelvic tilt flexion based ex. Isolated lumbar movements
--- NOTE | 2019-10-02 17:34 | PT.OTN ---
Current Diagnoses Polyneuropathy, unspecified (10/02/19) Benign paroxysmal vertigo, left ear (10/02/19) Pain in right hip (10/02/19) Pain in left hip (10/02/19) Stiffness of right hip, not elsewhere classified (10/02/19) Stiffness of left hip, not elsewhere classified (10/02/19) Spondylolisthesis, lumbar region (10/02/19) Spondylosis without myelopathy or radiculopathy, lumbosacral region (10/02/19) Other intervertebral disc displacement, lumbar region (10/02/19) Muscle weakness (generalized) (10/02/19) Physical Therapy Treatment Note PT-OP-A Visit Information Start: 11/28/18 17:41 Freq: Status: Active Protocol: Document 10/02/19 16:45 DCW (Rec: 10/02/19 17:34 DCW [id number]) Out-Patient Physical Therapy Visit Information Visit Information Visit Type Treatment Note Visit Start Time 16:45 Visit Stop Time 17:50 Total Visit Minutes 50 Visit Number 39 Number of WATCH REPAIRER Visits 0 PT-OP-B Current Condition Start: 11/28/18 17:41 Freq: Status: Active Protocol: Document 04/30/19 12:00 DCW (Rec: 04/30/19 17:55 DCW [id number]) Current Condition History of Current Condition Onset Date Two years Current Complaints Worsening back pain History of Current Condition Pt is a 78 year old female presenting with progressive low back pain. Pt notes she has had lumbar issues off and on for 20 years, but that six years ago, she was caring for her life partner, who was going through an illness at the time, and strained her back. It has been bad since then, and specifically worsening over the last two years. Additionally, pt notes that she pulled something on Monday in her left posterior hip, which has been causing even more pain and difficulty in her getting around. Pt notes that if she is sitting or lying down, she doesn't feel too bad, but if she stays in a position too samir, she has a large increase in pain when she tries to get up and move around. Pt feels like she has substantially decreased in her level of activity tolerance and overall fitness level. Pt reports that she tries to walk one block every day, and frequently is unable to do so. Pt also has in the past swam 3x/week, and now has not been to the pool in two years. ADDENDUM 04/30/19: Pt has a new referral for eval/treat of ongoing dizziness. Pt notes that dizziness occurs in episodes lasting seconds, and is brought on by lying back in bed or bending over to harness the dog. 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 The most prominent level of degenerative change is L3-L4, where there is a left lateral recess disc extrusion, with associated moderate to severe central canal narrowing. Moderate to severe bilateral neural foraminal narrowing is also seen at this level. Impression taken from Objective history of pt note from [facility] on Prior Functional Status Baseline Function- ADL's Independent Baseline Function- Mobility Independent Baseline Function- Gait Walk multiple miles downtown Baseline Function- Recreation/Hobbies Swimming at community pool Current Functional Impairments (Reported) Functional Limitations- Mobility/Gait Pt unable to walk more than one block Functional Limitations- Recreation/ Pt has not gone to pool in [place] past two years. PT-OP-C Subjective Start: 11/28/18 17:41 Freq: Status: Active Protocol: Document 10/02/19 16:45 DCW (Rec: 10/02/19 17:34 DCW [id number]) OP-PT Subjective Patient Comments Patient Comments My hands were so swollen this morning my fingers were touching. PT-OP-F Manual Assessment Start: 11/28/18 17:41 Freq: Status: Active Protocol: Document 07/24/19 15:15 DCW (Rec: 07/24/19 15:48 DCW [id number]) Manual Assessments Soft Tissue Assessment Soft Tissue Mobility Assessment Severe tone and tenderness to palpation 3/4:Wincing and withdraw: bilateral QL, left piriformis, left ITB Moderate tone and tenderness to palpation 2/4: Pain with wincing: right piriformis, right ITB PT-OP-K Range of Motion Start: 11/28/18 17:41 Freq: Status: Active Protocol: Document 07/24/19 15:15 DCW (Rec: 07/24/19 15:48 DCW [id number]) Lumbar Spine Range of Motion Lumbar Spine Active Degrees Testing Position Standing Flexion 59 Extension 10 Lateral Flexion Left 54 Lateral Flexion Right 56 ROM Limitations Pain Comments Lateral flexion measured in cm from fingertip to floor. Extension limited secondary to pain PT-OP-L Special Tests Start: 11/28/18 17:41 Freq: Status: Active Protocol: Document 07/24/19 15:15 DCW (Rec: 07/24/19 15:48 DCW [id number]) Special Tests Lumbar Spine Special Tests Manual Traction Test Results Improves symptoms Compression Test Results Improves symptoms Hip Special Tests Piriformis Test Results B tenderness at Piriformis PARAS Test Results Positive left ipsilateral lateral hip pain PT-OP-M Strength Start: 11/28/18 17:41 Freq: Status: Active Protocol: Document 07/24/19 15:15 DCW (Rec: 07/24/19 15:48 DCW [id number]) Hip Strength Hip Manual Muscle Testing Right Flexion (L2) 4 Good Abduction 4 Good Adduction 4 Good External Rotation 4 Good Internal Rotation 4+ Good+ Left Flexion (L2) 4- Good- Abduction 4- Good- Adduction 4- Good- External Rotation 4+ Good+ Internal Rotation 4+ Good+ Knee Strength Knee Manual Muscle Testing Right Flexion (S2) 4+ Good+ Extension (L3) 5 Normal Left Flexion (S2) 4+ Good+ Extension (L3) 5 Normal Ankle/Foot Strength Ankle and Foot Manual Muscle Testing Right Dorsiflexion (L4) 4 Good Plantarflexion (S1) 4 Good Left Dorsiflexion (L4) 4 Good Plantarflexion (S1) 4 Good PT-OP-O Vestibular Start: 04/30/19 17:56 Freq: Status: Active Protocol: Document 04/30/19 12:00 DCW (Rec: 05/01/19 09:44 DCW [id number]) Vestibular Assessment Visual Testing Smooth Pursuits Horizontal Questionable saccadic movement when following left Smooth Pursuits Vertical WNL Saccades Horizontal WNL Positional Testing Rush-Hallpike Negative Left,Negative Right Rolling Test Positive Left,Positive Right,> 60 Seconds Comments Vestibular Comments Ageotropic nystagmus with roll test, continued entire time pt was positioned PT-OP-Q Treatments Start: 11/28/18 17:41 Freq: Status: Active Protocol: Document 10/02/19 16:45 DCW (Rec: 10/02/19 17:34 DCW [id number]) Cardio Equipment Recumbent Stepper (Sci-Fit) Duration (Minutes) 6 Resistance 4 Seat Position 9 Gym Equipment Shuttle Recovery Unilateral Squats Resistance 37# Shuttle Recovery Platform Stable Reps/Time x25 Bilateral Squats Resistance 75# Shuttle Recovery Platform Stable Reps/Time x25 Shuttle Rebound red Exercise Details WBOS, Staggered Therapeutic Exercises Standing Exercises staggered stance Standing Exercise Name AP weight shift Side bilateral Reps/Minutes 2 mins Comments no support Extension Standing Exercise Name Hip Extension Resistance Green Equipment Used T-band Other Exercises Resisted Ambulation Other Exercise Name Side-stepping Resistance Green Manual Therapy Treatment Soft Tissue Mobilization Piriformis Body Location R Piriformis Mobilization Type Strumming,Sustained Pressure Intensity/Depth Deep Body Position Sidelying L/S and glutes Body Location B L/S and glutes Mobilization Type Cross-Friction,Myofascial Release,Sustained Pressure Intensity/Depth Moderate Body Position Sidelying PT-OP-R Modalities Start: 11/28/18 17:41 Freq: Status: Active Protocol: Document 10/02/19 16:45 DCW (Rec: 10/02/19 17:34 DCW [id number]) Hot Pack/Cold Pack Treatment Hot Pack Location low back Patient Position Hooklying Treatment Duration (minutes) 10 Patient Tolerance Good PT-OP-T Assessment and Plan Start: 11/28/18 17:41 Freq: Status: Active Protocol: Document 10/02/19 16:45 DCW (Rec: 10/02/19 17:34 DCW [id number]) Physical Therapy Assessment Goals Four Impairment Core and hip weakness Short Term Goal (STG) Pt to demonstrate increased hip abduction bilaterally to 4 +/5 STG Duration 08/24/19 Planning Coordinator Goal (LTG) Goal Met:Pt to exhibit core/ TrA MMT 4-/5 Advance to 4+/5 LTG Duration 09/23/19 Three Impairment Pt has not been able to swim for two years Nursing Home Goal (LTG) Pt to return to community pool independently for exercise with no increased back pain 02/21/19:Pt still limited due to open wounds on arms LTG Duration 09/23/19 Two Impairment Pt only able to walk <one square block due to pain Short Term Goal (STG) Pt to ambulate 1/2 mile with no increased pain STG Duration 08/24/19 - Improving Planning Coordinator Goal (LTG) Pt to ambulate one mile with no increased pain LTG Duration 09/23/19 One Impairment Pt does not have an appropriate home exercise program Short Term Goal (STG) Pt to be independent and compliant with an appropriate HEP STG Duration Met Assessment Summary Assessment Pt a little more fatigued today, feels it is likely due to the later than usual appointment time. Pt required a few more rest breaks, but was able to tolerate all activities. Physical Therapy Plan Frequency and Duration Frequency of Treatment 2x/Week Duration of Treatment 12 weeks Plan of Care Start Date 07/24/19 Plan of Care End Date 10/16/19 Therapeutic Interventions Therapeutic Interventions Aquatic Therapy,Home Exercise Program,Joint Mobilizations, Manual Therapy,Self-Care/Home Management,Soft Tissue Mobilization,Therapeutic Activities,Therapeutic Exercises Modalities Cold Pack/Ice Massage,Electric Stimulation,Hot Packs, Ultrasound Next Visit Focus/Plan Next Note Type Treatment Note Next Visit Plan cont hip mobility, pelvic tilt flexion based ex. Isolated lumbar movements
--- NOTE | 2019-10-04 15:14 | PT.OTN ---
Current Diagnoses Polyneuropathy, unspecified (10/04/19) Benign paroxysmal vertigo, left ear (10/04/19) Pain in right hip (10/04/19) Pain in left hip (10/04/19) Stiffness of right hip, not elsewhere classified (10/04/19) Stiffness of left hip, not elsewhere classified (10/04/19) Spondylolisthesis, lumbar region (10/04/19) Spondylosis without myelopathy or radiculopathy, lumbosacral region (10/04/19) Other intervertebral disc displacement, lumbar region (10/04/19) Muscle weakness (generalized) (10/04/19) Physical Therapy Treatment Note PT-OP-A Visit Information Start: 11/28/18 17:41 Freq: Status: Active Protocol: Document 10/04/19 14:30 DCW (Rec: 10/04/19 15:13 DCW [id number]) Out-Patient Physical Therapy Visit Information Visit Information Visit Type Treatment Note Visit Start Time 14:30 Visit Stop Time 15:20 Total Visit Minutes 50 Visit Number 40 Number of CLOTH BALE HEADER Visits 0 PT-OP-B Current Condition Start: 11/28/18 17:41 Freq: Status: Active Protocol: Document 04/30/19 12:00 DCW (Rec: 04/30/19 17:55 DCW [id number]) Current Condition History of Current Condition Onset Date Two years Current Complaints Worsening back pain History of Current Condition Pt is a 78 year old female presenting with progressive low back pain. Pt notes she has had lumbar issues off and on for 20 years, but that six years ago, she was caring for her life partner, who was going through an illness at the time, and strained her back. It has been bad since then, and specifically worsening over the last two years. Additionally, pt notes that she pulled something on Monday in her left posterior hip, which has been causing even more pain and difficulty in her getting around. Pt notes that if she is sitting or lying down, she doesn't feel too bad, but if she stays in a position too samir, she has a large increase in pain when she tries to get up and move around. Pt feels like she has substantially decreased in her level of activity tolerance and overall fitness level. Pt reports that she tries to walk one block every day, and frequently is unable to do so. Pt also has in the past swam 3x/week, and now has not been to the pool in two years. ADDENDUM 04/30/19: Pt has a new referral for eval/treat of ongoing dizziness. Pt notes that dizziness occurs in episodes lasting seconds, and is brought on by lying back in bed or bending over to harness the dog. 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 The most prominent level of degenerative change is L3-L4, where there is a left lateral recess disc extrusion, with associated moderate to severe central canal narrowing. Moderate to severe bilateral neural foraminal narrowing is also seen at this level. Impression taken from Objective history of pt note from MIRACLE Arriaza on Prior Functional Status Baseline Function- ADL's Independent Baseline Function- Mobility Independent Baseline Function- Gait Walk multiple miles downtown Baseline Function- Recreation/Hobbies Swimming at community pool Current Functional Impairments (Reported) Functional Limitations- Mobility/Gait Pt unable to walk more than one block Functional Limitations- Recreation/ Pt has not gone to pool in [place] past two years. PT-OP-C Subjective Start: 11/28/18 17:41 Freq: Status: Active Protocol: Document 10/04/19 14:30 DCW (Rec: 10/04/19 15:13 DCW [id number]) OP-PT Subjective Patient Comments Patient Comments You know how I told you last time my hands were swollen and sore? They're even worse today. PT-OP-F Manual Assessment Start: 11/28/18 17:41 Freq: Status: Active Protocol: Document 07/24/19 15:15 DCW (Rec: 07/24/19 15:48 DCW [id number]) Manual Assessments Soft Tissue Assessment Soft Tissue Mobility Assessment Severe tone and tenderness to palpation 3/4:Wincing and withdraw: bilateral QL, left piriformis, left ITB Moderate tone and tenderness to palpation 2/4: Pain with wincing: right piriformis, right ITB PT-OP-K Range of Motion Start: 11/28/18 17:41 Freq: Status: Active Protocol: Document 07/24/19 15:15 DCW (Rec: 07/24/19 15:48 DCW [id number]) Lumbar Spine Range of Motion Lumbar Spine Active Degrees Testing Position Standing Flexion 59 Extension 10 Lateral Flexion Left 54 Lateral Flexion Right 56 ROM Limitations Pain Comments Lateral flexion measured in cm from fingertip to floor. Extension limited secondary to pain PT-OP-L Special Tests Start: 11/28/18 17:41 Freq: Status: Active Protocol: Document 07/24/19 15:15 DCW (Rec: 07/24/19 15:48 DCW [id number]) Special Tests Lumbar Spine Special Tests Manual Traction Test Results Improves symptoms Compression Test Results Improves symptoms Hip Special Tests Piriformis Test Results B tenderness at Piriformis PARAS Test Results Positive left ipsilateral lateral hip pain PT-OP-M Strength Start: 11/28/18 17:41 Freq: Status: Active Protocol: Document 07/24/19 15:15 DCW (Rec: 07/24/19 15:48 DCW [id number]) Hip Strength Hip Manual Muscle Testing Right Flexion (L2) 4 Good Abduction 4 Good Adduction 4 Good External Rotation 4 Good Internal Rotation 4+ Good+ Left Flexion (L2) 4- Good- Abduction 4- Good- Adduction 4- Good- External Rotation 4+ Good+ Internal Rotation 4+ Good+ Knee Strength Knee Manual Muscle Testing Right Flexion (S2) 4+ Good+ Extension (L3) 5 Normal Left Flexion (S2) 4+ Good+ Extension (L3) 5 Normal Ankle/Foot Strength Ankle and Foot Manual Muscle Testing Right Dorsiflexion (L4) 4 Good Plantarflexion (S1) 4 Good Left Dorsiflexion (L4) 4 Good Plantarflexion (S1) 4 Good PT-OP-O Vestibular Start: 04/30/19 17:56 Freq: Status: Active Protocol: Document 04/30/19 12:00 DCW (Rec: 05/01/19 09:44 DCW [id number]) Vestibular Assessment Visual Testing Smooth Pursuits Horizontal Questionable saccadic movement when following left Smooth Pursuits Vertical WNL Saccades Horizontal WNL Positional Testing [place]-Hallpike Negative Left,Negative Right Rolling Test Positive Left,Positive Right,> 60 Seconds Comments Vestibular Comments Ageotropic nystagmus with roll test, continued entire time pt was positioned PT-OP-Q Treatments Start: 11/28/18 17:41 Freq: Status: Active Protocol: Document 10/04/19 14:30 DCW (Rec: 07/24/20 15:13 DCW [id number]) Cardio Equipment Recumbent Stepper (Sci-Fit) Duration (Minutes) 6 Resistance 4 Seat Position 9 Gym Equipment Shuttle Recovery Unilateral Squats Resistance 37# Shuttle Recovery Platform Stable Reps/Time x25 Bilateral Squats Resistance 75# Shuttle Recovery Platform Stable Reps/Time x25 Shuttle Rebound red Exercise Details WBOS, Staggered Therapeutic Exercises Other Exercises Resisted Ambulation Other Exercise Name Side-stepping, Fwd, Bkwd Resistance Green Manual Therapy Treatment Soft Tissue Mobilization Piriformis Body Location R Piriformis Mobilization Type Strumming,Sustained Pressure Intensity/Depth Deep Body Position Sidelying L/S and glutes Body Location B L/S and glutes Mobilization Type Cross-Friction,Myofascial Release,Sustained Pressure Intensity/Depth Moderate Body Position Sidelying PT-OP-R Modalities Start: 11/28/18 17:41 Freq: Status: Active Protocol: Document 10/04/19 14:30 DCW (Rec: 10/04/19 15:13 DCW [id number]) Hot Pack/Cold Pack Treatment Hot Pack Location low back Patient Position Hooklying Treatment Duration (minutes) 10 Patient Tolerance Good PT-OP-T Assessment and Plan Start: 11/28/18 17:41 Freq: Status: Active Protocol: Document 10/04/19 14:30 DCW (Rec: 10/04/19 15:13 DCW [id number]) Physical Therapy Assessment Goals Four Impairment Core and hip weakness Short Term Goal (STG) Pt to demonstrate increased hip abduction bilaterally to 4 +/5 STG Duration 08/24/19 Supervisor Tumblers Goal (LTG) Goal Met:Pt to exhibit core/ TrA MMT 4-/5 Advance to 4+/5 LTG Duration 09/23/19 Three Impairment Pt has not been able to swim for two years Supervisor Tumblers Goal (LTG) Pt to return to community pool independently for exercise with no increased back pain 02/21/19:Pt still limited due to open wounds on arms LTG Duration 09/23/19 Two Impairment Pt only able to walk <one square block due to pain Short Term Goal (STG) Pt to ambulate 1/2 mile with no increased pain STG Duration 08/24/19 - Improving Supervisor Tumblers Goal (LTG) Pt to ambulate one mile with no increased pain LTG Duration 09/23/19 One Impairment Pt does not have an appropriate home exercise program Short Term Goal (STG) Pt to be independent and compliant with an appropriate HEP STG Duration Met Assessment Summary Assessment Pt very stiff and sore today, she is unsure why, thinks it may be due to history of gout. Pt struggled more today with balance and strengthening activities, but tolerated manual therapy very well. Physical Therapy Plan Frequency and Duration Frequency of Treatment 2x/Week Duration of Treatment 12 weeks Plan of Care Start Date 07/24/19 Plan of Care End Date 10/16/19 Therapeutic Interventions Therapeutic Interventions Aquatic Therapy,Home Exercise Program,Joint Mobilizations, Manual Therapy,Self-Care/Home Management,Soft Tissue Mobilization,Therapeutic Activities,Therapeutic Exercises Modalities Cold Pack/Ice Massage,Electric Stimulation,Hot Packs, Ultrasound Next Visit Focus/Plan Next Note Type Treatment Note Next Visit Plan cont hip mobility, pelvic tilt flexion based ex. Isolated lumbar movements
--- NOTE | 2019-10-10 14:32 | PT.OTN ---
Current Diagnoses Polyneuropathy, unspecified (10/10/19) Benign paroxysmal vertigo, left ear (10/10/19) Pain in right hip (10/10/19) Pain in left hip (10/10/19) Stiffness of right hip, not elsewhere classified (10/10/19) Stiffness of left hip, not elsewhere classified (10/10/19) Spondylolisthesis, lumbar region (10/10/19) Spondylosis without myelopathy or radiculopathy, lumbosacral region (10/10/19) Other intervertebral disc displacement, lumbar region (10/10/19) Muscle weakness (generalized) (10/10/19) Physical Therapy Treatment Note PT-OP-A Visit Information Start: 11/28/18 17:41 Freq: Status: Active Protocol: Document 10/10/19 13:50 DCW (Rec: 10/10/19 14:31 DCW [id number]) Out-Patient Physical Therapy Visit Information Visit Information Visit Type Treatment Note Visit Note Late start d/t pt in restroom Visit Start Time 13:50 Visit Stop Time 14:35 Total Visit Minutes 45 Visit Number 41 Number of COOK PIE Visits 0 PT-OP-B Current Condition Start: 11/28/18 17:41 Freq: Status: Active Protocol: Document 04/30/19 12:00 DCW (Rec: 04/30/19 17:55 DCW [id number]) Current Condition History of Current Condition Onset Date Two years Current Complaints Worsening back pain History of Current Condition Pt is a 78 year old female presenting with progressive low back pain. Pt notes she has had lumbar issues off and on for 20 years, but that six years ago, she was caring for her life partner, who was going through an illness at the time, and strained her back. It has been bad since then, and specifically worsening over the last two years. Additionally, pt notes that she pulled something on Monday in her left posterior hip, which has been causing even more pain and difficulty in her getting around. Pt notes that if she is sitting or lying down, she doesn't feel too bad, but if she stays in a position too samir, she has a large increase in pain when she tries to get up and move around. Pt feels like she has substantially decreased in her level of activity tolerance and overall fitness level. Pt reports that she tries to walk one block every day, and frequently is unable to do so. Pt also has in the past swam 3x/week, and now has not been to the pool in two years. ADDENDUM 04/30/19: Pt has a new referral for eval/treat of ongoing dizziness. Pt notes that dizziness occurs in episodes lasting seconds, and is brought on by lying back in bed or bending over to harness the dog. 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 The most prominent level of degenerative change is L3-L4, where there is a left lateral recess disc extrusion, with associated moderate to severe central canal narrowing. Moderate to severe bilateral neural foraminal narrowing is also seen at this level. Impression taken from Objective history of pt note from [facility] Arriaza on Prior Functional Status Baseline Function- ADL's Independent Baseline Function- Mobility Independent Baseline Function- Gait Walk multiple miles downtown Baseline Function- Recreation/Hobbies Swimming at community pool Current Functional Impairments (Reported) Functional Limitations- Mobility/Gait Pt unable to walk more than one block Functional Limitations- Recreation/ Pt has not gone to pool in [place] past two years. PT-OP-C Subjective Start: 11/28/18 17:41 Freq: Status: Active Protocol: Document 10/10/19 13:50 DCW (Rec: 10/10/19 14:31 DCW [id number]) OP-PT Subjective Patient Comments Patient Comments Pt reports she is doing much better now, she was put on Prednisone last week and I can't even begin to tell you how much better I feel. PT-OP-F Manual Assessment Start: 11/28/18 17:41 Freq: Status: Active Protocol: Document 07/24/19 15:15 DCW (Rec: 07/24/19 15:48 DCW [id number]) Manual Assessments Soft Tissue Assessment Soft Tissue Mobility Assessment Severe tone and tenderness to palpation 3/4:Wincing and withdraw: bilateral QL, left piriformis, left ITB Moderate tone and tenderness to palpation 2/4: Pain with wincing: right piriformis, right ITB PT-OP-K Range of Motion Start: 11/28/18 17:41 Freq: Status: Active Protocol: Document 07/24/19 15:15 DCW (Rec: 07/24/19 15:48 DCW [id number]) Lumbar Spine Range of Motion Lumbar Spine Active Degrees Testing Position Standing Flexion 59 Extension 10 Lateral Flexion Left 54 Lateral Flexion Right 56 ROM Limitations Pain Comments Lateral flexion measured in cm from fingertip to floor. Extension limited secondary to pain PT-OP-L Special Tests Start: 11/28/18 17:41 Freq: Status: Active Protocol: Document 07/24/19 15:15 DCW (Rec: 07/24/19 15:48 DCW [id number]) Special Tests Lumbar Spine Special Tests Manual Traction Test Results Improves symptoms Compression Test Results Improves symptoms Hip Special Tests Piriformis Test Results B tenderness at Piriformis PARAS Test Results Positive left ipsilateral lateral hip pain PT-OP-M Strength Start: 11/28/18 17:41 Freq: Status: Active Protocol: Document 07/24/19 15:15 DCW (Rec: 07/24/19 15:48 DCW [id number]) Hip Strength Hip Manual Muscle Testing Right Flexion (L2) 4 Good Abduction 4 Good Adduction 4 Good External Rotation 4 Good Internal Rotation 4+ Good+ Left Flexion (L2) 4- Good- Abduction 4- Good- Adduction 4- Good- External Rotation 4+ Good+ Internal Rotation 4+ Good+ Knee Strength Knee Manual Muscle Testing Right Flexion (S2) 4+ Good+ Extension (L3) 5 Normal Left Flexion (S2) 4+ Good+ Extension (L3) 5 Normal Ankle/Foot Strength Ankle and Foot Manual Muscle Testing Right Dorsiflexion (L4) 4 Good Plantarflexion (S1) 4 Good Left Dorsiflexion (L4) 4 Good Plantarflexion (S1) 4 Good PT-OP-O Vestibular Start: 04/30/19 17:56 Freq: Status: Active Protocol: Document 04/30/19 12:00 DCW (Rec: 05/01/19 09:44 DCW [id number]) Vestibular Assessment Visual Testing Smooth Pursuits Horizontal Questionable saccadic movement when following left Smooth Pursuits Vertical WNL Saccades Horizontal WNL Positional Testing [place]-Hallpike Negative Left,Negative Right Rolling Test Positive Left,Positive Right,> 60 Seconds Comments Vestibular Comments Ageotropic nystagmus with roll test, continued entire time pt was positioned PT-OP-Q Treatments Start: 11/28/18 17:41 Freq: Status: Active Protocol: Document 10/10/19 13:50 DCW (Rec: 10/10/19 14:31 DCW [id number]) Cardio Equipment Recumbent Elliptical (Biodex) Duration (Minutes) 6 Resistance 4 Seat Position 7 Gym Equipment Shuttle Recovery Unilateral Squats Resistance 37# Shuttle Recovery Platform Stable Reps/Time x25 Bilateral Squats Resistance 75# Shuttle Recovery Platform Stable Reps/Time x25 Shuttle Rebound red Exercise Details WBOS, Staggered Therapeutic Exercises Standing Exercises staggered stance Standing Exercise Name AP weight shift Side bilateral Reps/Minutes 2 mins Comments no support Other Exercises Resisted Ambulation Other Exercise Name Side-stepping, Fwd, Bkwd Resistance Green Manual Therapy Treatment Soft Tissue Mobilization Piriformis Body Location R Piriformis Mobilization Type Strumming,Sustained Pressure Intensity/Depth Deep Body Position Sidelying L/S and glutes Body Location B L/S and glutes Mobilization Type Cross-Friction,Myofascial Release,Sustained Pressure Intensity/Depth Moderate Body Position Sidelying PT-OP-R Modalities Start: 11/28/18 17:41 Freq: Status: Active Protocol: Document 10/10/19 13:50 DCW (Rec: 10/10/19 14:31 DCW [id number]) Hot Pack/Cold Pack Treatment Hot Pack Location low back Patient Position Hooklying Treatment Duration (minutes) 10 Patient Tolerance Good PT-OP-T Assessment and Plan Start: 11/28/18 17:41 Freq: Status: Active Protocol: Document 10/10/19 13:50 DCW (Rec: 10/10/19 14:31 DCW [id number]) Physical Therapy Assessment Goals Four Impairment Core and hip weakness Short Term Goal (STG) Pt to demonstrate increased hip abduction bilaterally to 4 +/5 STG Duration 08/24/19 Halfway Goal (LTG) Goal Met:Pt to exhibit core/ TrA MMT 4-/5 Advance to 4+/5 LTG Duration 09/23/19 Three Impairment Pt has not been able to swim for two years City Engineer Goal (LTG) Pt to return to community pool independently for exercise with no increased back pain 02/21/19:Pt still limited due to open wounds on arms LTG Duration 09/23/19 Two Impairment Pt only able to walk <one square block due to pain Short Term Goal (STG) Pt to ambulate 1/2 mile with no increased pain STG Duration 08/24/19 - Improving City Engineer Goal (LTG) Pt to ambulate one mile with no increased pain LTG Duration 09/23/19 One Impairment Pt does not have an appropriate home exercise program Short Term Goal (STG) Pt to be independent and compliant with an appropriate HEP STG Duration Met Assessment Summary Assessment Pt tolerating treatment and mobility much better this week , minimal pain and discomfort with activity. Continues to fatigue easily. Physical Therapy Plan Frequency and Duration Frequency of Treatment 2x/Week Duration of Treatment 12 weeks Plan of Care Start Date 07/24/19 Plan of Care End Date 10/16/19 Therapeutic Interventions Therapeutic Interventions Aquatic Therapy,Home Exercise Program,Joint Mobilizations, Manual Therapy,Self-Care/Home Management,Soft Tissue Mobilization,Therapeutic Activities,Therapeutic Exercises Modalities Cold Pack/Ice Massage,Electric Stimulation,Hot Packs, Ultrasound Next Visit Focus/Plan Next Note Type Treatment Note Next Visit Plan cont hip mobility, pelvic tilt flexion based ex. Isolated lumbar movements
--- NOTE | 2019-10-14 13:45 | PT.OTN ---
Current Diagnoses Polyneuropathy, unspecified (10/14/19) Benign paroxysmal vertigo, left ear (10/14/19) Pain in right hip (10/14/19) Pain in left hip (10/14/19) Stiffness of right hip, not elsewhere classified (10/14/19) Stiffness of left hip, not elsewhere classified (10/14/19) Spondylolisthesis, lumbar region (10/14/19) Spondylosis without myelopathy or radiculopathy, lumbosacral region (10/14/19) Other intervertebral disc displacement, lumbar region (10/14/19) Muscle weakness (generalized) (10/14/19) Physical Therapy Treatment Note PT-OP-A Visit Information Start: 11/28/18 17:41 Freq: Status: Active Protocol: Document 10/14/19 13:01 HH (Rec: 10/14/19 13:45 HH [id number]) Out-Patient Physical Therapy Visit Information Visit Information Visit Type Treatment Note Visit Start Time 13:04 Visit Stop Time 13:54 Total Visit Minutes 50 Visit Number 42 Number of BROOMCORN SCRAPER Visits 0 PT-OP-B Current Condition Start: 11/28/18 17:41 Freq: Status: Active Protocol: Document 04/30/19 12:00 DCW (Rec: 04/30/19 17:55 DCW [id number]) Current Condition History of Current Condition Onset Date Two years Current Complaints Worsening back pain History of Current Condition Pt is a 78 year old female presenting with progressive low back pain. Pt notes she has had lumbar issues off and on for 20 years, but that six years ago, she was caring for her life partner, who was going through an illness at the time, and strained her back. It has been bad since then, and specifically worsening over the last two years. Additionally, pt notes that she pulled something on Monday in her left posterior hip, which has been causing even more pain and difficulty in her getting around. Pt notes that if she is sitting or lying down, she doesn't feel too bad, but if she stays in a position too samir, she has a large increase in pain when she tries to get up and move around. Pt feels like she has substantially decreased in her level of activity tolerance and overall fitness level. Pt reports that she tries to walk one block every day, and frequently is unable to do so. Pt also has in the past swam 3x/week, and now has not been to the pool in two years. ADDENDUM 04/30/19: Pt has a new referral for eval/treat of ongoing dizziness. Pt notes that dizziness occurs in episodes lasting seconds, and is brought on by lying back in bed or bending over to harness the dog. 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 The most prominent level of degenerative change is L3-L4, where there is a left lateral recess disc extrusion, with associated moderate to severe central canal narrowing. Moderate to severe bilateral neural foraminal narrowing is also seen at this level. Impression taken from Objective history of pt note from MIRACLE Arriaza on Prior Functional Status Baseline Function- ADL's Independent Baseline Function- Mobility Independent Baseline Function- Gait Walk multiple miles downtown Baseline Function- Recreation/Hobbies Swimming at community pool Current Functional Impairments (Reported) Functional Limitations- Mobility/Gait Pt unable to walk more than one block Functional Limitations- Recreation/ Pt has not gone to pool in [place] past two years. PT-OP-C Subjective Start: 11/28/18 17:41 Freq: Status: Active Protocol: Document 10/14/19 13:01 HH (Rec: 10/14/19 13:45 HH [id number]) OP-PT Subjective Patient Comments Patient Comments Cassidy been feeling a lot better since last time i saw you which is 2-3 weeks. I lost 10 lbs so far and cassidy been able to walk and move easier. Patient Reported Progress Improving PT-OP-F Manual Assessment Start: 11/28/18 17:41 Freq: Status: Active Protocol: Document 07/24/19 15:15 DCW (Rec: 07/24/19 15:48 DCW [id number]) Manual Assessments Soft Tissue Assessment Soft Tissue Mobility Assessment Severe tone and tenderness to palpation 3/4:Wincing and withdraw: bilateral QL, left piriformis, left ITB Moderate tone and tenderness to palpation 2/4: Pain with wincing: right piriformis, right ITB PT-OP-K Range of Motion Start: 11/28/18 17:41 Freq: Status: Active Protocol: Document 07/24/19 15:15 DCW (Rec: 07/24/19 15:48 DCW [id number]) Lumbar Spine Range of Motion Lumbar Spine Active Degrees Testing Position Standing Flexion 59 Extension 10 Lateral Flexion Left 54 Lateral Flexion Right 56 ROM Limitations Pain Comments Lateral flexion measured in cm from fingertip to floor. Extension limited secondary to pain PT-OP-L Special Tests Start: 11/28/18 17:41 Freq: Status: Active Protocol: Document 07/24/19 15:15 DCW (Rec: 07/24/19 15:48 DCW [id number]) Special Tests Lumbar Spine Special Tests Manual Traction Test Results Improves symptoms Compression Test Results Improves symptoms Hip Special Tests Piriformis Test Results B tenderness at Piriformis PARAS Test Results Positive left ipsilateral lateral hip pain PT-OP-M Strength Start: 11/28/18 17:41 Freq: Status: Active Protocol: Document 07/24/19 15:15 DCW (Rec: 07/24/19 15:48 DCW [id number]) Hip Strength Hip Manual Muscle Testing Right Flexion (L2) 4 Good Abduction 4 Good Adduction 4 Good External Rotation 4 Good Internal Rotation 4+ Good+ Left Flexion (L2) 4- Good- Abduction 4- Good- Adduction 4- Good- External Rotation 4+ Good+ Internal Rotation 4+ Good+ Knee Strength Knee Manual Muscle Testing Right Flexion (S2) 4+ Good+ Extension (L3) 5 Normal Left Flexion (S2) 4+ Good+ Extension (L3) 5 Normal Ankle/Foot Strength Ankle and Foot Manual Muscle Testing Right Dorsiflexion (L4) 4 Good Plantarflexion (S1) 4 Good Left Dorsiflexion (L4) 4 Good Plantarflexion (S1) 4 Good PT-OP-O Vestibular Start: 04/30/19 17:56 Freq: Status: Active Protocol: Document 04/30/19 12:00 DCW (Rec: 05/01/19 09:44 DCW [id number]) Vestibular Assessment Visual Testing Smooth Pursuits Horizontal Questionable saccadic movement when following left Smooth Pursuits Vertical WNL Saccades Horizontal WNL Positional Testing Rush-Hallpike Negative Left,Negative Right Rolling Test Positive Left,Positive Right,> 60 Seconds Comments Vestibular Comments Ageotropic nystagmus with roll test, continued entire time pt was positioned PT-OP-Q Treatments Start: 11/28/18 17:41 Freq: Status: Active Protocol: Document 10/14/19 13:01 HH (Rec: 10/14/19 13:45 [id number]) Cardio Equipment Recumbent Stepper (Sci-Fit) Duration (Minutes) 6 Resistance 5 Seat Position 9 Gym Equipment Shuttle Recovery Unilateral Squats Details discomfort on R knee Resistance 37# Shuttle Recovery Platform Stable Reps/Time 12 x2 Bilateral Squats Resistance 75# Shuttle Recovery Platform Stable Reps/Time 12 x 2 Shuttle Rebound red Exercise Details WBOS, Staggered Therapeutic Exercises Supine Exercises pelvic tilt Side bilateral Reps/Minutes 10 x2 Comments no cues needed jamarcus stretch Side bilateral Reps/Minutes 12 secs x 3 Comments no pain noted marches with TA Side bilateral Reps/Minutes 8 x 2 Comments hip and knee to 90 degrees lower trunk rotation Supine Exercise Name full range Side bilateral Reps/Minutes 8 x 2 Comments no discomfort noted Sitting Exercises pelvic tilts Side bilateral Reps/Minutes 12 times Comments need tactile cues to assist PT-OP-R Modalities Start: 11/28/18 17:41 Freq: Status: Active Protocol: Document 10/14/19 13:01 (Rec: 10/14/19 13:45 [id number]) Hot Pack/Cold Pack Treatment Hot Pack Location low back Patient Position Hooklying Treatment Duration (minutes) 10 Patient Tolerance Good PT-OP-T Assessment and Plan Start: 11/28/18 17:41 Freq: Status: Active Protocol: Document 10/14/19 13:01 (Rec: 10/14/19 13:45 [id number]) Physical Therapy Assessment Goals Four Impairment Core and hip weakness Short Term Goal (STG) Pt to demonstrate increased hip abduction bilaterally to 4 +/5 STG Duration 08/24/19 Social Work Specialist Goal (LTG) Goal Met:Pt to exhibit core/ TrA MMT 4-/5 Advance to 4+/5 LTG Duration 09/23/19 Three Impairment Pt has not been able to swim for two years Assisted Goal (LTG) Pt to return to community pool independently for exercise with no increased back pain 02/21/19:Pt still limited due to open wounds on arms LTG Duration 09/23/19 Two Impairment Pt only able to walk <one square block due to pain Short Term Goal (STG) Pt to ambulate 1/2 mile with no increased pain STG Duration 08/24/19 - Improving Social Work Specialist Goal (LTG) Pt to ambulate one mile with no increased pain LTG Duration 09/23/19 One Impairment Pt does not have an appropriate home exercise program Short Term Goal (STG) Pt to be independent and compliant with an appropriate HEP STG Duration Met Assessment Summary Assessment Pt has been showing significant progress since last visit with this PT. Pt has improved pelvic control, upright posture during gaitand activity tolerance. Physical Therapy Plan Next Visit Focus/Plan Next Note Type Treatment Note Next Visit Plan cont hip mobility, pelvic tilt flexion based ex. Isolated lumbar movements
--- NOTE | 2019-10-21 17:34 | PT.OPPOC ---
Physical, Occupational & Speech Therapy At [facility] Current Diagnoses Polyneuropathy, unspecified (10/21/19) Benign paroxysmal vertigo, left ear (10/21/19) Pain in right hip (10/21/19) Pain in left hip (10/21/19) Stiffness of right hip, not elsewhere classified (10/21/19) Stiffness of left hip, not elsewhere classified (10/21/19) Spondylolisthesis, lumbar region (10/21/19) Spondylosis without myelopathy or radiculopathy, lumbosacral region (10/21/19) Other intervertebral disc displacement, lumbar region (10/21/19) Muscle weakness (generalized) (10/21/19) Visit Care Team Role Provider Type Jorge L Dietz MD Primary Care Provider Physician Specialty: Family Practice Address: [address] [place] [address], [facility] [place], [address] Email: [email or web address] MIRACLE Arriaza Attending Provider Non-Staff Specialty: Pain Management Address: [address] [place] [address], [id number] Email: [email or web address] Plan Of Care PT-OP-T Assessment and Plan Start: 11/28/18 17:41 Freq: Status: Active Protocol: Document 10/21/19 17:22 HH (Rec: 10/21/19 17:33 HH [email or web address]) Physical Therapy Assessment Goals 2 MWT Impairment will assess next visit Four Impairment Core and hip weakness Short Term Goal (STG) Pt to demonstrate increased hip abduction bilaterally to 4 +/5 STG Duration 08/24/19 Penitentiary Goal (LTG) Goal Met:Pt to exhibit core/ TrA MMT 4-/5 Advance to 4+/5 LTG Duration 09/23/19 Three Impairment Pt has not been able to swim for two years Short Term Goal (STG) cont to progress 10/20 pt has not able to use pool d/ t limited access from coronavirus phase reopening protocol Penitentiary Goal (LTG) Pt to return to community pool independently for exercise with no increased back pain 02/21/19:Pt still limited due to open wounds on arms LTG Duration 09/23/19 Two Impairment Pt only able to walk <one square block due to pain Short Term Goal (STG) 10/20 pt stated she is able to amb for 10-15 mins without break Pt to ambulate 1/2 mile with no increased pain STG Duration 08/24/19 - Improving Penitentiary Goal (LTG) Pt to ambulate one mile with no increased pain LTG Duration 09/23/19 One Impairment Pt does not have an appropriate home exercise program Short Term Goal (STG) 10/20 goal met Pt to be independent and compliant with an appropriate HEP STG Duration Met Progress Towards Goals Progress Towards Goals Slow Progress due to Activity Tolerance,Slow Progress due to Medical Issues,Slow Progress due to Noncompliance,Slow Progress - Other Assessment Summary Assessment pt has been showing some improvements with lumbopelvic control and improved gait mechanics with less use of SPC . However,although pt's fluctuated fatigue level, change of medication and other medical conditions possibly limit her rehab progress, pt will cont benefit from skilled therapy to optimize her trunk ROM, activity tolerance, gait efficiency and overall LE strength. Will assess 2 or 6 MWT next time. Physical Therapy Plan Frequency and Duration Frequency of Treatment 2x/Week Duration of Treatment 10 weeks Plan of Care Start Date 10/21/19 Plan of Care End Date 01/04/20 Therapeutic Interventions Therapeutic Interventions Aquatic Therapy,Home Exercise Program,Joint Mobilizations, Manual Therapy,Self-Care/Home Management,Soft Tissue Mobilization,Therapeutic Activities,Therapeutic Exercises Modalities Cold Pack/Ice Massage,Electric Stimulation,Hot Packs, Ultrasound Next Visit Focus/Plan Next Note Type Treatment Note Next Visit Plan 2/6MWT cont hip mobility, pelvic tilt flexion based ex. Isolated lumbar movements Plan of Care Dates Plan of Care Start Date 10/21/19 Plan of Care End Date 01/04/20 Electronically Signed by: Sowmya Bee, PT 10/21/19 0098 Please Sign and Return: I have reviewed this Plan of Care and certify that the skilled therapy services above are required to meet the patient?s needs. Physician Signature Date Printed Name and Credentials Clinical Instructor Signature Printed Name and Credentials
--- NOTE | 2019-10-21 17:35 | PT.OTN ---
Current Diagnoses Polyneuropathy, unspecified (10/21/19) Benign paroxysmal vertigo, left ear (10/21/19) Pain in right hip (10/21/19) Pain in left hip (10/21/19) Stiffness of right hip, not elsewhere classified (10/21/19) Stiffness of left hip, not elsewhere classified (10/21/19) Spondylolisthesis, lumbar region (10/21/19) Spondylosis without myelopathy or radiculopathy, lumbosacral region (10/21/19) Other intervertebral disc displacement, lumbar region (10/21/19) Muscle weakness (generalized) (10/21/19) Physical Therapy Treatment Note PT-OP-A Visit Information Start: 11/28/18 17:41 Freq: Status: Active Protocol: Document 10/21/19 17:22 HH (Rec: 10/21/19 17:33 HH [email or web address]) Out-Patient Physical Therapy Visit Information Visit Information Visit Type Progress Note Visit Start Time 13:01 Visit Stop Time 13:46 Total Visit Minutes 45 Visit Number 43 Number of TABLE MACHINE OPERATOR Visits 0 PT-OP-B Current Condition Start: 11/28/18 17:41 Freq: Status: Active Protocol: Document 04/30/19 12:00 DCW (Rec: 04/30/19 17:55 DCW [id number]) Current Condition History of Current Condition Onset Date Two years Current Complaints Worsening back pain History of Current Condition Pt is a 78 year old female presenting with progressive low back pain. Pt notes she has had lumbar issues off and on for 20 years, but that six years ago, she was caring for her life partner, who was going through an illness at the time, and strained her back. It has been bad since then, and specifically worsening over the last two years. Additionally, pt notes that she pulled something on Monday in her left posterior hip, which has been causing even more pain and difficulty in her getting around. Pt notes that if she is sitting or lying down, she doesn't feel too bad, but if she stays in a position too samir, she has a large increase in pain when she tries to get up and move around. Pt feels like she has substantially decreased in her level of activity tolerance and overall fitness level. Pt reports that she tries to walk one block every day, and frequently is unable to do so. Pt also has in the past swam 3x/week, and now has not been to the pool in two years. ADDENDUM 04/30/19: Pt has a new referral for eval/treat of ongoing dizziness. Pt notes that dizziness occurs in episodes lasting seconds, and is brought on by lying back in bed or bending over to harness the dog. 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 The most prominent level of degenerative change is L3-L4, where there is a left lateral recess disc extrusion, with associated moderate to severe central canal narrowing. Moderate to severe bilateral neural foraminal narrowing is also seen at this level. Impression taken from Objective history of pt note from MIRACLE Arriaza on Prior Functional Status Baseline Function- ADL's Independent Baseline Function- Mobility Independent Baseline Function- Gait Walk multiple miles downtown Baseline Function- Recreation/Hobbies Swimming at community pool Current Functional Impairments (Reported) Functional Limitations- Mobility/Gait Pt unable to walk more than one block Functional Limitations- Recreation/ Pt has not gone to pool in [place] past two years. PT-OP-C Subjective Start: 11/28/18 17:41 Freq: Status: Active Protocol: Document 10/21/19 17:22 HH (Rec: 10/21/19 17:33 [email or web address]) OP-PT Subjective Patient Comments Patient Comments I was not feeling too well last week and i found out my BP was 96/40 on Monday thats why i cancel my appointment. But i got better towards the weekend. I already scheduled to f/u with doctor. So i didnt do much lately but i am still walking better. PT-OP-F Manual Assessment Start: 11/28/18 17:41 Freq: Status: Active Protocol: Document 07/24/19 15:15 DCW (Rec: 07/24/19 15:48 DCW [id number]) Manual Assessments Soft Tissue Assessment Soft Tissue Mobility Assessment Severe tone and tenderness to palpation 3/4:Wincing and withdraw: bilateral QL, left piriformis, left ITB Moderate tone and tenderness to palpation 2/4: Pain with wincing: right piriformis, right ITB PT-OP-K Range of Motion Start: 11/28/18 17:41 Freq: Status: Active Protocol: Document 07/24/19 15:15 DCW (Rec: 07/24/19 15:48 DCW [id number]) Lumbar Spine Range of Motion Lumbar Spine Active Degrees Testing Position Standing Flexion 59 Extension 10 Lateral Flexion Left 54 Lateral Flexion Right 56 ROM Limitations Pain Comments Lateral flexion measured in cm from fingertip to floor. Extension limited secondary to pain PT-OP-L Special Tests Start: 11/28/18 17:41 Freq: Status: Active Protocol: Document 07/24/19 15:15 DCW (Rec: 07/24/19 15:48 DCW [id number]) Special Tests Lumbar Spine Special Tests Manual Traction Test Results Improves symptoms Compression Test Results Improves symptoms Hip Special Tests Piriformis Test Results B tenderness at Piriformis PARAS Test Results Positive left ipsilateral lateral hip pain PT-OP-M Strength Start: 11/28/18 17:41 Freq: Status: Active Protocol: Document 07/24/19 15:15 DCW (Rec: 07/24/19 15:48 DCW [id number]) Hip Strength Hip Manual Muscle Testing Right Flexion (L2) 4 Good Abduction 4 Good Adduction 4 Good External Rotation 4 Good Internal Rotation 4+ Good+ Left Flexion (L2) 4- Good- Abduction 4- Good- Adduction 4- Good- External Rotation 4+ Good+ Internal Rotation 4+ Good+ Knee Strength Knee Manual Muscle Testing Right Flexion (S2) 4+ Good+ Extension (L3) 5 Normal Left Flexion (S2) 4+ Good+ Extension (L3) 5 Normal Ankle/Foot Strength Ankle and Foot Manual Muscle Testing Right Dorsiflexion (L4) 4 Good Plantarflexion (S1) 4 Good Left Dorsiflexion (L4) 4 Good Plantarflexion (S1) 4 Good PT-OP-O Vestibular Start: 04/30/19 17:56 Freq: Status: Active Protocol: Document 04/30/19 12:00 DCW (Rec: 05/01/19 09:44 DCW [id number]) Vestibular Assessment Visual Testing Smooth Pursuits Horizontal Questionable saccadic movement when following left Smooth Pursuits Vertical WNL Saccades Horizontal WNL Positional Testing Maben-Hallpike Negative Left,Negative Right Rolling Test Positive Left,Positive Right,> 60 Seconds Comments Vestibular Comments Ageotropic nystagmus with roll test, continued entire time pt was positioned PT-OP-Q Treatments Start: 11/28/18 17:41 Freq: Status: Active Protocol: Document 10/21/19 17:22 (Rec: 10/21/19 17:33 [email or web address]) Cardio Equipment Recumbent Stepper (Sci-Fit) Duration (Minutes) 6 Resistance 5 Seat Position 9 Therapeutic Exercises Supine Exercises pelvic clock Supine Exercise Name pelvic rotation Reps/Minutes 10 x2 Comments tactile cues needed knee to chest Equipment Used with red therapy ball Reps/Minutes 8 x2 Comments cues on lower abs engagement pelvic tilt Side bilateral Reps/Minutes 10 x2 Comments no cues needed lower trunk rotation Supine Exercise Name full range Side bilateral Equipment Used with red therapy ball Reps/Minutes 8 x 2 Comments no discomfort noted Sitting Exercises pelvic tilts Side bilateral Reps/Minutes 10 x2 Comments need tactile cues to assist but none after 1st set Standing Exercises standing ppT Reps/Minutes 8 x2 Comments need tactile cues to assist but none after 1st set PT-OP-R Modalities Start: 11/28/18 17:41 Freq: Status: Active Protocol: Document 10/21/19 17:22 (Rec: 10/21/19 17:33 [email or web address]) Hot Pack/Cold Pack Treatment Hot Pack Location low back Patient Position Hooklying Treatment Duration (minutes) 10 Patient Tolerance Good PT-OP-T Assessment and Plan Start: 11/28/18 17:41 Freq: Status: Active Protocol: Document 10/21/19 17:22 (Rec: 10/21/19 17:33 [email or web address]) Physical Therapy Assessment Goals 2 MWT Impairment will assess next visit Four Impairment Core and hip weakness Short Term Goal (STG) Pt to demonstrate increased hip abduction bilaterally to 4 +/5 STG Duration 08/24/19 Senior Care Goal (LTG) Goal Met:Pt to exhibit core/ TrA MMT 4-/5 Advance to 4+/5 LTG Duration 09/23/19 Three Impairment Pt has not been able to swim for two years Short Term Goal (STG) cont to progress 10/20 pt has not able to use pool d/ t limited access from coronavirus phase reopening protocol Senior Care Goal (LTG) Pt to return to community pool independently for exercise with no increased back pain 02/21/19:Pt still limited due to open wounds on arms LTG Duration 09/23/19 Two Impairment Pt only able to walk <one square block due to pain Short Term Goal (STG) 8/10 pt stated she is able to amb for 10-15 mins without break Pt to ambulate 1/2 mile with no increased pain STG Duration 08/24/19 - Improving Jumbo Operator Goal (LTG) Pt to ambulate one mile with no increased pain LTG Duration 09/23/19 One Impairment Pt does not have an appropriate home exercise program Short Term Goal (STG) 10/20 goal met Pt to be independent and compliant with an appropriate HEP STG Duration Met Progress Towards Goals Progress Towards Goals Slow Progress due to Activity Tolerance,Slow Progress due to Medical Issues,Slow Progress due to Noncompliance,Slow Progress - Other Assessment Summary Assessment pt has been showing some improvements with lumbopelvic control and improved gait mechanics with less use of SPC . However,although pt's fluctuated fatigue level, change of medication and other medical conditions possibly limit her rehab progress, pt will cont benefit from skilled therapy to optimize her trunk ROM, activity tolerance, gait efficiency and overall LE strength. Will assess 2 or 6 MWT next time. Physical Therapy Plan Frequency and Duration Frequency of Treatment 2x/Week Duration of Treatment 10 weeks Plan of Care Start Date 10/21/19 Plan of Care End Date 01/04/20 Therapeutic Interventions Therapeutic Interventions Aquatic Therapy,Home Exercise Program,Joint Mobilizations, Manual Therapy,Self-Care/Home Management,Soft Tissue Mobilization,Therapeutic Activities,Therapeutic Exercises Modalities Cold Pack/Ice Massage,Electric Stimulation,Hot Packs, Ultrasound Next Visit Focus/Plan Next Note Type Treatment Note Next Visit Plan 2/6MWT cont hip mobility, pelvic tilt flexion based ex. Isolated lumbar movements
--- NOTE | 2019-10-23 14:32 | PT.OTN ---
Current Diagnoses Polyneuropathy, unspecified (10/23/19) Benign paroxysmal vertigo, left ear (10/23/19) Pain in right hip (10/23/19) Pain in left hip (10/23/19) Stiffness of right hip, not elsewhere classified (10/23/19) Stiffness of left hip, not elsewhere classified (10/23/19) Spondylolisthesis, lumbar region (10/23/19) Spondylosis without myelopathy or radiculopathy, lumbosacral region (10/23/19) Other intervertebral disc displacement, lumbar region (10/23/19) Muscle weakness (generalized) (10/23/19) Physical Therapy Treatment Note PT-OP-A Visit Information Start: 11/28/18 17:41 Freq: Status: Active Protocol: Document 10/23/19 13:45 DCW (Rec: 10/23/19 14:32 DCW [id number]) Out-Patient Physical Therapy Visit Information Visit Information Visit Type Treatment Note Visit Start Time 13:45 Visit Stop Time 14:35 Total Visit Minutes 50 Visit Number 44 Number of [employer]ER Visits 0 PT-OP-B Current Condition Start: 11/28/18 17:41 Freq: Status: Active Protocol: Document 04/30/19 12:00 DCW (Rec: 04/30/19 17:55 DCW [id number]) Current Condition History of Current Condition Onset Date Two years Current Complaints Worsening back pain History of Current Condition Pt is a 78 year old female presenting with progressive low back pain. Pt notes she has had lumbar issues off and on for 20 years, but that six years ago, she was caring for her life partner, who was going through an illness at the time, and strained her back. It has been bad since then, and specifically worsening over the last two years. Additionally, pt notes that she pulled something on Monday in her left posterior hip, which has been causing even more pain and difficulty in her getting around. Pt notes that if she is sitting or lying down, she doesn't feel too bad, but if she stays in a position too samir, she has a large increase in pain when she tries to get up and move around. Pt feels like she has substantially decreased in her level of activity tolerance and overall fitness level. Pt reports that she tries to walk one block every day, and frequently is unable to do so. Pt also has in the past swam 3x/week, and now has not been to the pool in two years. ADDENDUM 04/30/19: Pt has a new referral for eval/treat of ongoing dizziness. Pt notes that dizziness occurs in episodes lasting seconds, and is brought on by lying back in bed or bending over to harness the dog. 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 The most prominent level of degenerative change is L3-L4, where there is a left lateral recess disc extrusion, with associated moderate to severe central canal narrowing. Moderate to severe bilateral neural foraminal narrowing is also seen at this level. Impression taken from Objective history of pt note from [facility] Ar[facility]aza on Prior Functional Status Baseline Function- ADL's Independent Baseline Function- Mobility Independent Baseline Function- Gait Walk multiple miles downtown Baseline Function- Recreation/Hobbies Swimming at community pool Current Functional Impairments (Reported) Functional Limitations- Mobility/Gait Pt unable to walk more than one block Functional Limitations- Recreation/ Pt has not gone to pool in [place] past two years. PT-OP-C Subjective Start: 11/28/18 17:41 Freq: Status: Active Protocol: Document 10/23/19 13:45 DCW (Rec: 10/23/19 14:32 DCW [id number]) OP-PT Subjective Patient Comments Patient Comments It's the darnedest thing. I felt great leaving here Monday , I felt great yesterday, but then this morning, I work up, my hands were really sore and swollen again, and my knee hurt so much, I couldn't get out of bed. I had to just lay there for quite a while. PT-OP-F Manual Assessment Start: 11/28/18 17:41 Freq: Status: Active Protocol: Document 07/24/19 15:15 DCW (Rec: 07/24/19 15:48 DCW [id number]) Manual Assessments Soft Tissue Assessment Soft Tissue Mobility Assessment Severe tone and tenderness to palpation 3/4:Wincing and withdraw: bilateral QL, left piriformis, left ITB Moderate tone and tenderness to palpation 2/4: Pain with wincing: right piriformis, right ITB PT-OP-K Range of Motion Start: 11/28/18 17:41 Freq: Status: Active Protocol: Document 07/24/19 15:15 DCW (Rec: 07/24/19 15:48 DCW [id number]) Lumbar Spine Range of Motion Lumbar Spine Active Degrees Testing Position Standing Flexion 59 Extension 10 Lateral Flexion Left 54 Lateral Flexion Right 56 ROM Limitations Pain Comments Lateral flexion measured in cm from fingertip to floor. Extension limited secondary to pain PT-OP-L Special Tests Start: 11/28/18 17:41 Freq: Status: Active Protocol: Document 07/24/19 15:15 DCW (Rec: 07/24/19 15:48 DCW [id number]) Special Tests Lumbar Spine Special Tests Manual Traction Test Results Improves symptoms Compression Test Results Improves symptoms Hip Special Tests Piriformis Test Results B tenderness at Piriformis PARAS Test Results Positive left ipsilateral lateral hip pain PT-OP-M Strength Start: 11/28/18 17:41 Freq: Status: Active Protocol: Document 07/24/19 15:15 DCW (Rec: 07/24/19 15:48 DCW [id number]) Hip Strength Hip Manual Muscle Testing Right Flexion (L2) 4 Good Abduction 4 Good Adduction 4 Good External Rotation 4 Good Internal Rotation 4+ Good+ Left Flexion (L2) 4- Good- Abduction 4- Good- Adduction 4- Good- External Rotation 4+ Good+ Internal Rotation 4+ Good+ Knee Strength Knee Manual Muscle Testing Right Flexion (S2) 4+ Good+ Extension (L3) 5 Normal Left Flexion (S2) 4+ Good+ Extension (L3) 5 Normal Ankle/Foot Strength Ankle and Foot Manual Muscle Testing Right Dorsiflexion (L4) 4 Good Plantarflexion (S1) 4 Good Left Dorsiflexion (L4) 4 Good Plantarflexion (S1) 4 Good PT-OP-O Vestibular Start: 04/30/19 17:56 Freq: Status: Active Protocol: Document 04/30/19 12:00 DCW (Rec: 05/01/19 09:44 DCW [id number]) Vestibular Assessment Visual Testing Smooth Pursuits Horizontal Questionable saccadic movement when following left Smooth Pursuits Vertical WNL Saccades Horizontal WNL Positional Testing Rush-Hallpike Negative Left,Negative Right Rolling Test Positive Left,Positive Right,> 60 Seconds Comments Vestibular Comments Ageotropic nystagmus with roll test, continued entire time pt was positioned PT-OP-Q Treatments Start: 11/28/18 17:41 Freq: Status: Active Protocol: Document 10/23/19 13:45 DCW (Rec: 10/23/19 14:32 DCW [id number]) Cardio Equipment Recumbent Elliptical (Biodex) Duration (Minutes) 5 Resistance 5 Seat Position 8 Gym Equipment Shuttle Rebound red Exercise Details WBOS, Staggered Therapeutic Exercises Supine Exercises lower trunk rotation Supine Exercise Name full range Side bilateral Equipment Used with red therapy ball Reps/Minutes 8 x 2 Comments no discomfort noted Sitting Exercises pelvic tilts Side bilateral Reps/Minutes 10 x2 Comments need tactile cues to assist but none after 1st set Other Exercises Resisted Ambulation Other Exercise Name Side-stepping, Fwd, Bkwd Resistance Green Manual Therapy Treatment Soft Tissue Mobilization Piriformis Body Location R Piriformis Mobilization Type Strumming,Sustained Pressure Intensity/Depth Deep Body Position Sidelying L/S and glutes Body Location B L/S and glutes Mobilization Type Cross-Friction,Myofascial Release,Sustained Pressure Intensity/Depth Moderate Body Position Sidelying PT-OP-R Modalities Start: 11/28/18 17:41 Freq: Status: Active Protocol: Document 10/23/19 13:45 DCW (Rec: 10/23/19 14:32 DCW [id number]) Hot Pack/Cold Pack Treatment Hot Pack Location low back Patient Position Hooklying Treatment Duration (minutes) 10 Patient Tolerance Good PT-OP-T Assessment and Plan Start: 11/28/18 17:41 Freq: Status: Active Protocol: Document 10/23/19 13:45 DCW (Rec: 10/23/19 14:32 DCW [id number]) Physical Therapy Assessment Goals Four Impairment Core and hip weakness Short Term Goal (STG) Pt to demonstrate increased hip abduction bilaterally to 4 +/5 STG Duration 08/24/19 Direct Care Professional Goal (LTG) Goal Met:Pt to exhibit core/ TrA MMT 4-/5 Advance to 4+/5 LTG Duration 09/23/19 Three Impairment Pt has not been able to swim for two years Short Term Goal (STG) cont to progress 10/20 pt has not able to use pool d/ t limited access from coronavirus phase reopening protocol [facility] Goal (LTG) Pt to return to community pool independently for exercise with no increased back pain 02/21/19:Pt still limited due to open wounds on arms LTG Duration 09/23/19 Two Impairment Pt only able to walk <one square block due to pain Short Term Goal (STG) 10/20 pt stated she is able to amb for 10-15 mins without break Pt to ambulate 1/2 mile with no increased pain STG Duration 08/24/19 - Improving Direct Care Professional Goal (LTG) Pt to ambulate one mile with no increased pain LTG Duration 09/23/19 One Impairment Pt does not have an appropriate home exercise program Short Term Goal (STG) 10/20 goal met Pt to be independent and compliant with an appropriate HEP STG Duration Met Assessment Summary Assessment Pt did well today, despite refusing a few activities secondary to knee pain. Physical Therapy Plan Frequency and Duration Frequency of Treatment 2x/Week Duration of Treatment 10 weeks Plan of Care Start Date 10/21/19 Plan of Care End Date 01/04/20 Therapeutic Interventions Therapeutic Interventions Aquatic Therapy,Home Exercise Program,Joint Mobilizations, Manual Therapy,Self-Care/Home Management,Soft Tissue Mobilization,Therapeutic Activities,Therapeutic Exercises Modalities Cold Pack/Ice Massage,Electric Stimulation,Hot Packs, Ultrasound Next Visit Focus/Plan Next Note Type Treatment Note Next Visit Plan 2/6MWT cont hip mobility, pelvic tilt flexion based ex. Isolated lumbar movements
--- NOTE | 2019-11-11 12:52 | PT.OTN ---
Current Diagnoses Polyneuropathy, unspecified (11/11/19) Benign paroxysmal vertigo, left ear (11/11/19) Pain in right hip (11/11/19) Pain in left hip (11/11/19) Stiffness of right hip, not elsewhere classified (11/11/19) Stiffness of left hip, not elsewhere classified (11/11/19) Spondylolisthesis, lumbar region (11/11/19) Spondylosis without myelopathy or radiculopathy, lumbosacral region (11/11/19) Other intervertebral disc displacement, lumbar region (11/11/19) Muscle weakness (generalized) (11/11/19) Physical Therapy Treatment Note PT-OP-A Visit Information Start: 11/28/18 17:41 Freq: Status: Active Protocol: Document 11/11/19 12:00 DCW (Rec: 11/11/19 12:52 DCW [id number]) Out-Patient Physical Therapy Visit Information Visit Information Visit Type Treatment Note Visit Start Time 12:00 Visit Stop Time 12:50 Total Visit Minutes 50 Visit Number 45 Number of TIN WHIZ MACHINE OPERATOR Visits 0 PT-OP-B Current Condition Start: 11/28/18 17:41 Freq: Status: Active Protocol: Document 04/30/19 12:00 DCW (Rec: 04/30/19 17:55 DCW [id number]) Current Condition History of Current Condition Onset Date Two years Current Complaints Worsening back pain History of Current Condition Pt is a 78 year old female presenting with progressive low back pain. Pt notes she has had lumbar issues off and on for 20 years, but that six years ago, she was caring for her life partner, who was going through an illness at the time, and strained her back. It has been bad since then, and specifically worsening over the last two years. Additionally, pt notes that she pulled something on Monday in her left posterior hip, which has been causing even more pain and difficulty in her getting around. Pt notes that if she is sitting or lying down, she doesn't feel too bad, but if she stays in a position too samir, she has a large increase in pain when she tries to get up and move around. Pt feels like she has substantially decreased in her level of activity tolerance and overall fitness level. Pt reports that she tries to walk one block every day, and frequently is unable to do so. Pt also has in the past swam 3x/week, and now has not been to the pool in two years. ADDENDUM 04/30/19: Pt has a new referral for eval/treat of ongoing dizziness. Pt notes that dizziness occurs in episodes lasting seconds, and is brought on by lying back in bed or bending over to harness the dog. 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 The most prominent level of degenerative change is L3-L4, where there is a left lateral recess disc extrusion, with associated moderate to severe central canal narrowing. Moderate to severe bilateral neural foraminal narrowing is also seen at this level. Impression taken from Objective history of pt note from MIRAC[facility] Arriaza on Prior Functional Status Baseline Function- ADL's Independent Baseline Function- Mobility Independent Baseline Function- Gait Walk multiple miles downtown Baseline Function- Recreation/Hobbies Swimming at community pool Current Functional Impairments (Reported) Functional Limitations- Mobility/Gait Pt unable to walk more than one block Functional Limitations- Recreation/ Pt has not gone to pool in [place] past two years. PT-OP-C Subjective Start: 11/28/18 17:41 Freq: Status: Active Protocol: Document 11/11/19 12:00 DCW (Rec: 11/11/19 12:52 DCW [id number]) OP-PT Subjective Patient Comments Patient Comments Pt reports she had a very nice 5 day visit from her son, but ate out too often, and therefore is more swollen than usual. PT-OP-F Manual Assessment Start: 11/28/18 17:41 Freq: Status: Active Protocol: Document 07/24/19 15:15 DCW (Rec: 07/24/19 15:48 DCW [id number]) Manual Assessments Soft Tissue Assessment Soft Tissue Mobility Assessment Severe tone and tenderness to palpation 3/4:Wincing and withdraw: bilateral QL, left piriformis, left ITB Moderate tone and tenderness to palpation 2/4: Pain with wincing: right piriformis, right ITB PT-OP-K Range of Motion Start: 11/28/18 17:41 Freq: Status: Active Protocol: Document 07/24/19 15:15 DCW (Rec: 07/24/19 15:48 DCW [id number]) Lumbar Spine Range of Motion Lumbar Spine Active Degrees Testing Position Standing Flexion 59 Extension 10 Lateral Flexion Left 54 Lateral Flexion Right 56 ROM Limitations Pain Comments Lateral flexion measured in cm from fingertip to floor. Extension limited secondary to pain PT-OP-L Special Tests Start: 11/28/18 17:41 Freq: Status: Active Protocol: Document 07/24/19 15:15 DCW (Rec: 07/24/19 15:48 DCW [id number]) Special Tests Lumbar Spine Special Tests Manual Traction Test Results Improves symptoms Compression Test Results Improves symptoms Hip Special Tests Piriformis Test Results B tenderness at Piriformis PARAS Test Results Positive left ipsilateral lateral hip pain PT-OP-M Strength Start: 11/28/18 17:41 Freq: Status: Active Protocol: Document 07/24/19 15:15 DCW (Rec: 07/24/19 15:48 DCW [id number]) Hip Strength Hip Manual Muscle Testing Right Flexion (L2) 4 Good Abduction 4 Good Adduction 4 Good External Rotation 4 Good Internal Rotation 4+ Good+ Left Flexion (L2) 4- Good- Abduction 4- Good- Adduction 4- Good- External Rotation 4+ Good+ Internal Rotation 4+ Good+ Knee Strength Knee Manual Muscle Testing Right Flexion (S2) 4+ Good+ Extension (L3) 5 Normal Left Flexion (S2) 4+ Good+ Extension (L3) 5 Normal Ankle/Foot Strength Ankle and Foot Manual Muscle Testing Right Dorsiflexion (L4) 4 Good Plantarflexion (S1) 4 Good Left Dorsiflexion (L4) 4 Good Plantarflexion (S1) 4 Good PT-OP-O Vestibular Start: 04/30/19 17:56 Freq: Status: Active Protocol: Document 04/30/19 12:00 DCW (Rec: 05/01/19 09:44 DCW [id number]) Vestibular Assessment Visual Testing Smooth Pursuits Horizontal Questionable saccadic movement when following left Smooth Pursuits Vertical WNL Saccades Horizontal WNL Positional Testing [place]-Hallpike Negative Left,Negative Right Rolling Test Positive Left,Positive Right,> 60 Seconds Comments Vestibular Comments Ageotropic nystagmus with roll test, continued entire time pt was positioned PT-OP-Q Treatments Start: 11/28/18 17:41 Freq: Status: Active Protocol: Document 11/11/19 12:00 DCW (Rec: 11/11/19 12:52 DCW [id number]) Cardio Equipment Recumbent Elliptical (Biodex) Duration (Minutes) 5 Resistance 5 Seat Position 8 Gym Equipment Shuttle Recovery Unilateral Squats Resistance 37# Shuttle Recovery Platform Stable Reps/Time x20 Bilateral Squats Resistance 75# Shuttle Recovery Platform Stable Reps/Time x20 Shuttle Balance RED Details WBOS, Staggered Therapeutic Exercises Supine Exercises pelvic clock Supine Exercise Name pelvic rotation Reps/Minutes 10 x2 Comments tactile cues needed pelvic tilt Side bilateral Reps/Minutes 10 x2 Comments no cues needed hamstring Side bilateral Reps/Minutes 30 secs hold x5 lower trunk rotation Supine Exercise Name full range Side bilateral Equipment Used with red therapy ball Reps/Minutes 8 x 2 Comments no discomfort noted Other Exercises Resisted Ambulation Other Exercise Name Side-stepping, Fwd, Bkwd Resistance Green Manual Therapy Treatment Soft Tissue Mobilization L/S and glutes Body Location B L/S and glutes Mobilization Type Cross-Friction,Myofascial Release,Sustained Pressure Intensity/Depth Moderate Body Position Sidelying PT-OP-R Modalities Start: 11/28/18 17:41 Freq: Status: Active Protocol: Document 11/11/19 12:00 DCW (Rec: 11/11/19 12:52 DCW [id number]) Hot Pack/Cold Pack Treatment Hot Pack Location low back Patient Position Hooklying Treatment Duration (minutes) 10 Patient Tolerance Good PT-OP-T Assessment and Plan Start: 11/28/18 17:41 Freq: Status: Active Protocol: Document 11/11/19 12:00 DCW (Rec: 11/11/19 12:52 DCW [id number]) Physical Therapy Assessment Goals Four Impairment Core and hip weakness Short Term Goal (STG) Pt to demonstrate increased hip abduction bilaterally to 4 +/5 STG Duration 08/24/19 Penitentiary Goal (LTG) Goal Met:Pt to exhibit core/ TrA MMT 4-/5 Advance to 4+/5 LTG Duration 09/23/19 Three Impairment Pt has not been able to swim for two years Short Term Goal (STG) cont to progress 8/10 pt has not able to use pool d/ t limited access from coronavirus phase reopening protocol Penitentiary Goal (LTG) Pt to return to community pool independently for exercise with no increased back pain 02/21/19:Pt still limited due to open wounds on arms LTG Duration 09/23/19 Two Impairment Pt only able to walk <one square block due to pain Short Term Goal (STG) 10/20 pt stated she is able to amb for 10-15 mins without break Pt to ambulate 1/2 mile with no increased pain STG Duration 08/24/19 - Improving Doubler Helper Goal (LTG) Pt to ambulate one mile with no increased pain LTG Duration 09/23/19 One Impairment Pt does not have an appropriate home exercise program Short Term Goal (STG) 10/20 goal met Pt to be independent and compliant with an appropriate HEP STG Duration Met Assessment Summary Assessment Pt feeling stiff and sore today, but able to fully participate in all requested activities. Pt demonstrates improved gait/mobility, and did not experience any knee pain on shuttle recovery. Physical Therapy Plan Frequency and Duration Frequency of Treatment 2x/Week Duration of Treatment 10 weeks Plan of Care Start Date 10/21/19 Plan of Care End Date 01/04/20 Therapeutic Interventions Therapeutic Interventions Aquatic Therapy,Home Exercise Program,Joint Mobilizations, Manual Therapy,Self-Care/Home Management,Soft Tissue Mobilization,Therapeutic Activities,Therapeutic Exercises Modalities Cold Pack/Ice Massage,Electric Stimulation,Hot Packs, Ultrasound Next Visit Focus/Plan Next Note Type Treatment Note Next Visit Plan 2/6MWT cont hip mobility, pelvic tilt flexion based ex. Isolated lumbar movements
--- NOTE | 2019-11-14 12:50 | PT.OTN ---
Current Diagnoses Polyneuropathy, unspecified (11/14/19) Benign paroxysmal vertigo, left ear (11/14/19) Pain in right hip (11/14/19) Pain in left hip (11/14/19) Stiffness of right hip, not elsewhere classified (11/14/19) Stiffness of left hip, not elsewhere classified (11/14/19) Spondylolisthesis, lumbar region (11/14/19) Spondylosis without myelopathy or radiculopathy, lumbosacral region (11/14/19) Other intervertebral disc displacement, lumbar region (11/14/19) Muscle weakness (generalized) (11/14/19) Physical Therapy Treatment Note PT-OP-A Visit Information Start: 11/28/18 17:41 Freq: Status: Active Protocol: Document 11/14/19 12:03 DCW (Rec: 11/14/19 12:50 DCW [id number]) Out-Patient Physical Therapy Visit Information Visit Information Visit Type Treatment Note Visit Start Time 12:03 Visit Stop Time 12:50 Total Visit Minutes 47 Visit Number 46 Number of CLOTH SHRINKING MACHINE OPERATOR HELPER Visits 0 PT-OP-B Current Condition Start: 11/28/18 17:41 Freq: Status: Active Protocol: Document 04/30/19 12:00 DCW (Rec: 04/30/19 17:55 DCW [id number]) Current Condition History of Current Condition Onset Date Two years Current Complaints Worsening back pain History of Current Condition Pt is a 78 year old female presenting with progressive low back pain. Pt notes she has had lumbar issues off and on for 20 years, but that six years ago, she was caring for her life partner, who was going through an illness at the time, and strained her back. It has been bad since then, and specifically worsening over the last two years. Additionally, pt notes that she pulled something on Monday in her left posterior hip, which has been causing even more pain and difficulty in her getting around. Pt notes that if she is sitting or lying down, she doesn't feel too bad, but if she stays in a position too samir, she has a large increase in pain when she tries to get up and move around. Pt feels like she has substantially decreased in her level of activity tolerance and overall fitness level. Pt reports that she tries to walk one block every day, and frequently is unable to do so. Pt also has in the past swam 3x/week, and now has not been to the pool in two years. ADDENDUM 04/30/19: Pt has a new referral for eval/treat of ongoing dizziness. Pt notes that dizziness occurs in episodes lasting seconds, and is brought on by lying back in bed or bending over to harness the dog. 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 The most prominent level of degenerative change is L3-L4, where there is a left lateral recess disc extrusion, with associated moderate to severe central canal narrowing. Moderate to severe bilateral neural foraminal narrowing is also seen at this level. Impression taken from Objective history of pt note from [facility] on Prior Functional Status Baseline Function- ADL's Independent Baseline Function- Mobility Independent Baseline Function- Gait Walk multiple miles downtown Baseline Function- Recreation/Hobbies Swimming at community pool Current Functional Impairments (Reported) Functional Limitations- Mobility/Gait Pt unable to walk more than one block Functional Limitations- Recreation/ Pt has not gone to pool in [place] past two years. PT-OP-C Subjective Start: 11/28/18 17:41 Freq: Status: Active Protocol: Document 11/14/19 12:03 DCW (Rec: 11/14/19 12:50 DCW [id number]) OP-PT Subjective Patient Comments Patient Comments Pt reports she had a bone marrow biopsy, which was fine and she had no pain, but her back is still bothering her. PT-OP-F Manual Assessment Start: 11/28/18 17:41 Freq: Status: Active Protocol: Document 07/24/19 15:15 DCW (Rec: 07/24/19 15:48 DCW [id number]) Manual Assessments Soft Tissue Assessment Soft Tissue Mobility Assessment Severe tone and tenderness to palpation 3/4:Wincing and withdraw: bilateral QL, left piriformis, left ITB Moderate tone and tenderness to palpation 2/4: Pain with wincing: right piriformis, right ITB PT-OP-K Range of Motion Start: 11/28/18 17:41 Freq: Status: Active Protocol: Document 07/24/19 15:15 DCW (Rec: 07/24/19 15:48 DCW [id number]) Lumbar Spine Range of Motion Lumbar Spine Active Degrees Testing Position Standing Flexion 59 Extension 10 Lateral Flexion Left 54 Lateral Flexion Right 56 ROM Limitations Pain Comments Lateral flexion measured in cm from fingertip to floor. Extension limited secondary to pain PT-OP-L Special Tests Start: 11/28/18 17:41 Freq: Status: Active Protocol: Document 07/24/19 15:15 DCW (Rec: 07/24/19 15:48 DCW [id number]) Special Tests Lumbar Spine Special Tests Manual Traction Test Results Improves symptoms Compression Test Results Improves symptoms Hip Special Tests Piriformis Test Results B tenderness at Piriformis PARAS Test Results Positive left ipsilateral lateral hip pain PT-OP-M Strength Start: 11/28/18 17:41 Freq: Status: Active Protocol: Document 07/24/19 15:15 DCW (Rec: 07/24/19 15:48 DCW [id number]) Hip Strength Hip Manual Muscle Testing Right Flexion (L2) 4 Good Abduction 4 Good Adduction 4 Good External Rotation 4 Good Internal Rotation 4+ Good+ Left Flexion (L2) 4- Good- Abduction 4- Good- Adduction 4- Good- External Rotation 4+ Good+ Internal Rotation 4+ Good+ Knee Strength Knee Manual Muscle Testing Right Flexion (S2) 4+ Good+ Extension (L3) 5 Normal Left Flexion (S2) 4+ Good+ Extension (L3) 5 Normal Ankle/Foot Strength Ankle and Foot Manual Muscle Testing Right Dorsiflexion (L4) 4 Good Plantarflexion (S1) 4 Good Left Dorsiflexion (L4) 4 Good Plantarflexion (S1) 4 Good PT-OP-O Vestibular Start: 04/30/19 17:56 Freq: Status: Active Protocol: Document 04/30/19 12:00 DCW (Rec: 05/01/19 09:44 DCW [id number]) Vestibular Assessment Visual Testing Smooth Pursuits Horizontal Questionable saccadic movement when following left Smooth Pursuits Vertical WNL Saccades Horizontal WNL Positional Testing [place]-Hallpike Negative Left,Negative Right Rolling Test Positive Left,Positive Right,> 60 Seconds Comments Vestibular Comments Ageotropic nystagmus with roll test, continued entire time pt was positioned PT-OP-Q Treatments Start: 11/28/18 17:41 Freq: Status: Active Protocol: Document 11/14/19 12:03 DCW (Rec: 11/14/19 12:50 DCW [id number]) Cardio Equipment Recumbent Elliptical (Biodex) Duration (Minutes) 5 Resistance 5 Seat Position 8 Gym Equipment Shuttle Recovery Unilateral Squats Resistance 37# Shuttle Recovery Platform Stable Reps/Time x20 Bilateral Squats Resistance 75# Shuttle Recovery Platform Stable Reps/Time x20 Shuttle Balance RED Details WBOS, Staggered Therapeutic Exercises Other Exercises Resisted Ambulation Other Exercise Name Side-stepping, Fwd, Bkwd Resistance Green Manual Therapy Treatment Soft Tissue Mobilization Piriformis Body Location R Piriformis Mobilization Type Strumming,Sustained Pressure Intensity/Depth Deep Body Position Sidelying L/S and glutes Body Location B L/S and glutes Mobilization Type Cross-Friction,Myofascial Release,Sustained Pressure Intensity/Depth Moderate Body Position Sidelying PT-OP-R Modalities Start: 11/28/18 17:41 Freq: Status: Active Protocol: Document 11/14/19 12:03 DCW (Rec: 11/14/19 12:50 DCW [id number]) Hot Pack/Cold Pack Treatment Hot Pack Location low back Patient Position Hooklying Treatment Duration (minutes) 10 Patient Tolerance Good PT-OP-T Assessment and Plan Start: 11/28/18 17:41 Freq: Status: Active Protocol: Document 11/14/19 12:03 DCW (Rec: 11/14/19 12:50 DCW [id number]) Physical Therapy Assessment Goals Four Impairment Core and hip weakness Short Term Goal (STG) Pt to demonstrate increased hip abduction bilaterally to 4 +/5 STG Duration 12/14/19 Paratransit Operator Goal (LTG) Goal Met:Pt to exhibit core/ TrA MMT 4-/5 Advance to 4+/5 LTG Duration 01/14/20 Three Impairment Pt has not been able to swim for two years Short Term Goal (STG) cont to progress 10/20 pt has not able to use pool d/ t limited access from coronavirus phase reopening protocol Paratransit Operator Goal (LTG) Pt to return to community pool independently for exercise with no increased back pain 02/21/19:Pt still limited due to open wounds on arms LTG Duration 01/14/20 Two Impairment Pt only able to walk <one square block due to pain Short Term Goal (STG) 10/20 pt stated she is able to amb for 10-15 mins without break Pt to ambulate 1/2 mile with no increased pain STG Duration 12/14/19 - Improving Detention Goal (LTG) Pt to ambulate one mile with no increased pain LTG Duration 01/14/20 One Impairment Pt does not have an appropriate home exercise program Short Term Goal (STG) 10/20 goal met Pt to be independent and compliant with an appropriate HEP STG Duration Met Assessment Summary Assessment Pt did well, did report some pain at area of bone marrow biopsy when rolling onto her left side, but otherwise felt good and had no problems with therapy. Physical Therapy Plan Frequency and Duration Frequency of Treatment 2x/Week Duration of Treatment 10 weeks Plan of Care Start Date 10/21/19 Plan of Care End Date 01/04/20 Therapeutic Interventions Therapeutic Interventions Aquatic Therapy,Home Exercise Program,Joint Mobilizations, Manual Therapy,Self-Care/Home Management,Soft Tissue Mobilization,Therapeutic Activities,Therapeutic Exercises Modalities Cold Pack/Ice Massage,Electric Stimulation,Hot Packs, Ultrasound Next Visit Focus/Plan Next Note Type Treatment Note Next Visit Plan 2/6MWT cont hip mobility, pelvic tilt flexion based ex. Isolated lumbar movements
--- NOTE | 2019-11-19 12:43 | PT.OTN ---
Current Diagnoses Polyneuropathy, unspecified (11/19/19) Benign paroxysmal vertigo, left ear (11/19/19) Pain in right hip (11/19/19) Pain in left hip (11/19/19) Stiffness of right hip, not elsewhere classified (11/19/19) Stiffness of left hip, not elsewhere classified (11/19/19) Spondylolisthesis, lumbar region (11/19/19) Spondylosis without myelopathy or radiculopathy, lumbosacral region (11/19/19) Other intervertebral disc displacement, lumbar region (11/19/19) Muscle weakness (generalized) (11/19/19) Physical Therapy Treatment Note PT-OP-A Visit Information Start: 11/28/18 17:41 Freq: Status: Active Protocol: Document 11/19/19 12:00 DCW (Rec: 11/19/19 12:43 DCW [id number]) Out-Patient Physical Therapy Visit Information Visit Information Visit Type Treatment Note Visit Start Time 12:00 Visit Stop Time 12:50 Total Visit Minutes 50 Visit Number 47 Number of SALES ROUTE DRIVER Visits 0 PT-OP-B Current Condition Start: 11/28/18 17:41 Freq: Status: Active Protocol: Document 04/30/19 12:00 DCW (Rec: 04/30/19 17:55 DCW [id number]) Current Condition History of Current Condition Onset Date Two years Current Complaints Worsening back pain History of Current Condition Pt is a 78 year old female presenting with progressive low back pain. Pt notes she has had lumbar issues off and on for 20 years, but that six years ago, she was caring for her life partner, who was going through an illness at the time, and strained her back. It has been bad since then, and specifically worsening over the last two years. Additionally, pt notes that she pulled something on Monday in her left posterior hip, which has been causing even more pain and difficulty in her getting around. Pt notes that if she is sitting or lying down, she doesn't feel too bad, but if she stays in a position too samir, she has a large increase in pain when she tries to get up and move around. Pt feels like she has substantially decreased in her level of activity tolerance and overall fitness level. Pt reports that she tries to walk one block every day, and frequently is unable to do so. Pt also has in the past swam 3x/week, and now has not been to the pool in two years. ADDENDUM 04/30/19: Pt has a new referral for eval/treat of ongoing dizziness. Pt notes that dizziness occurs in episodes lasting seconds, and is brought on by lying back in bed or bending over to harness the dog. 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 The most prominent level of degenerative change is L3-L4, where there is a left lateral recess disc extrusion, with associated moderate to severe central canal narrowing. Moderate to severe bilateral neural foraminal narrowing is also seen at this level. Impression taken from Objective history of pt note from MIRAC[facility] Arriaza on Prior Functional Status Baseline Function- ADL's Independent Baseline Function- Mobility Independent Baseline Function- Gait Walk multiple miles downtown Baseline Function- Recreation/Hobbies Swimming at community pool Current Functional Impairments (Reported) Functional Limitations- Mobility/Gait Pt unable to walk more than one block Functional Limitations- Recreation/ Pt has not gone to pool in [place] past two years. PT-OP-C Subjective Start: 11/28/18 17:41 Freq: Status: Active Protocol: Document 11/19/19 12:00 DCW (Rec: 11/19/19 12:43 DCW [id number]) OP-PT Subjective Patient Comments Patient Comments I really did not feel good Monday or Monday, and I thought about canceling, but I decided to wait and see how I felt today, and I actually woke up feeling pretty good, so here I am. PT-OP-F Manual Assessment Start: 11/28/18 17:41 Freq: Status: Active Protocol: Document 07/24/19 15:15 DCW (Rec: 07/24/19 15:48 DCW [id number]) Manual Assessments Soft Tissue Assessment Soft Tissue Mobility Assessment Severe tone and tenderness to palpation 3/4:Wincing and withdraw: bilateral QL, left piriformis, left ITB Moderate tone and tenderness to palpation 2/4: Pain with wincing: right piriformis, right ITB PT-OP-K Range of Motion Start: 11/28/18 17:41 Freq: Status: Active Protocol: Document 07/24/19 15:15 DCW (Rec: 07/24/19 15:48 DCW [id number]) Lumbar Spine Range of Motion Lumbar Spine Active Degrees Testing Position Standing Flexion 59 Extension 10 Lateral Flexion Left 54 Lateral Flexion Right 56 ROM Limitations Pain Comments Lateral flexion measured in cm from fingertip to floor. Extension limited secondary to pain PT-OP-L Special Tests Start: 11/28/18 17:41 Freq: Status: Active Protocol: Document 07/24/19 15:15 DCW (Rec: 07/24/19 15:48 DCW [id number]) Special Tests Lumbar Spine Special Tests Manual Traction Test Results Improves symptoms Compression Test Results Improves symptoms Hip Special Tests Piriformis Test Results B tenderness at Piriformis PARAS Test Results Positive left ipsilateral lateral hip pain PT-OP-M Strength Start: 11/28/18 17:41 Freq: Status: Active Protocol: Document 07/24/19 15:15 DCW (Rec: 07/24/19 15:48 DCW [id number]) Hip Strength Hip Manual Muscle Testing Right Flexion (L2) 4 Good Abduction 4 Good Adduction 4 Good External Rotation 4 Good Internal Rotation 4+ Good+ Left Flexion (L2) 4- Good- Abduction 4- Good- Adduction 4- Good- External Rotation 4+ Good+ Internal Rotation 4+ Good+ Knee Strength Knee Manual Muscle Testing Right Flexion (S2) 4+ Good+ Extension (L3) 5 Normal Left Flexion (S2) 4+ Good+ Extension (L3) 5 Normal Ankle/Foot Strength Ankle and Foot Manual Muscle Testing Right Dorsiflexion (L4) 4 Good Plantarflexion (S1) 4 Good Left Dorsiflexion (L4) 4 Good Plantarflexion (S1) 4 Good PT-OP-O Vestibular Start: 04/30/19 17:56 Freq: Status: Active Protocol: Document 04/30/19 12:00 DCW (Rec: 05/01/19 09:44 DCW [id number]) Vestibular Assessment Visual Testing Smooth Pursuits Horizontal Questionable saccadic movement when following left Smooth Pursuits Vertical WNL Saccades Horizontal WNL Positional Testing Lay[place]-Hallpike Negative Left,Negative Right Rolling Test Positive Left,Positive Right,> 60 Seconds Comments Vestibular Comments Ageotropic nystagmus with roll test, continued entire time pt was positioned PT-OP-Q Treatments Start: 11/28/18 17:41 Freq: Status: Active Protocol: Document 11/19/19 12:00 DCW (Rec: 11/19/19 12:43 DCW [id number]) Cardio Equipment Recumbent Elliptical (Biodex) Duration (Minutes) 5 Resistance 5 Seat Position 8 Gym Equipment Shuttle Recovery Unilateral Squats Resistance 37# Shuttle Recovery Platform Stable Reps/Time x20 Bilateral Squats Resistance 75# Shuttle Recovery Platform Stable Reps/Time x20 Therapeutic Exercises Supine Exercises pelvic tilt Side bilateral Reps/Minutes 10 x2 Comments no cues needed hamstring Side bilateral Reps/Minutes 30 secs hold x5 lower trunk rotation Supine Exercise Name full range Side bilateral Equipment Used with red therapy ball Reps/Minutes 8 x 2 Comments no discomfort noted Other Exercises Resisted Ambulation Other Exercise Name Side-stepping, Fwd, Bkwd Resistance Green Manual Therapy Treatment Soft Tissue Mobilization Piriformis Body Location R Piriformis Mobilization Type Strumming,Sustained Pressure Intensity/Depth Deep Body Position Sidelying L/S and glutes Body Location B L/S and glutes Mobilization Type Cross-Friction,Myofascial Release,Sustained Pressure Intensity/Depth Moderate Body Position Sidelying PT-OP-R Modalities Start: 11/28/18 17:41 Freq: Status: Active Protocol: Document 11/19/19 12:00 DCW (Rec: 11/19/19 12:43 DCW [id number]) Hot Pack/Cold Pack Treatment Hot Pack Location low back Patient Position Hooklying Treatment Duration (minutes) 10 Patient Tolerance Good PT-OP-T Assessment and Plan Start: 11/28/18 17:41 Freq: Status: Active Protocol: Document 11/19/19 12:00 DCW (Rec: 11/19/19 12:43 DCW [id number]) Physical Therapy Assessment Goals Four Impairment Core and hip weakness Short Term Goal (STG) Pt to demonstrate increased hip abduction bilaterally to 4 +/5 STG Duration 12/14/19 Interdisciplinary Professor Goal (LTG) Goal Met:Pt to exhibit core/ TrA MMT 4-/5 Advance to 4+/5 LTG Duration 01/14/20 Three Impairment Pt has not been able to swim for two years Short Term Goal (STG) cont to progress 10/20 pt has not able to use pool d/ t limited access from coronavirus phase reopening protocol Prison Goal (LTG) Pt to return to community pool independently for exercise with no increased back pain 02/21/19:Pt still limited due to open wounds on arms LTG Duration 01/14/20 Two Impairment Pt only able to walk <one square block due to pain Short Term Goal (STG) 10/20 pt stated she is able to amb for 10-15 mins without break Pt to ambulate 1/2 mile with no increased pain STG Duration 12/14/19 - Improving Prison Goal (LTG) Pt to ambulate one mile with no increased pain LTG Duration 01/14/20 One Impairment Pt does not have an appropriate home exercise program Short Term Goal (STG) 10/20 goal met Pt to be independent and compliant with an appropriate HEP STG Duration Met Assessment Summary Assessment Pt moving a little more slowly today than usual, but overall tolerated treatment very well . Pt making improving with strength and mobility. Physical Therapy Plan Frequency and Duration Frequency of Treatment 2x/Week Duration of Treatment 10 weeks Plan of Care Start Date 10/21/19 Plan of Care End Date 01/04/20 Therapeutic Interventions Therapeutic Interventions Aquatic Therapy,Home Exercise Program,Joint Mobilizations, Manual Therapy,Self-Care/Home Management,Soft Tissue Mobilization,Therapeutic Activities,Therapeutic Exercises Modalities Cold Pack/Ice Massage,Electric Stimulation,Hot Packs, Ultrasound Next Visit Focus/Plan Next Note Type Treatment Note Next Visit Plan 2/6MWT cont hip mobility, pelvic tilt flexion based ex. Isolated lumbar movements
--- NOTE | 2019-11-21 14:34 | PT.OTN ---
Current Diagnoses Polyneuropathy, unspecified (11/21/19) Benign paroxysmal vertigo, left ear (11/21/19) Pain in right hip (11/21/19) Pain in left hip (11/21/19) Stiffness of right hip, not elsewhere classified (11/21/19) Stiffness of left hip, not elsewhere classified (11/21/19) Spondylolisthesis, lumbar region (11/21/19) Spondylosis without myelopathy or radiculopathy, lumbosacral region (11/21/19) Other intervertebral disc displacement, lumbar region (11/21/19) Muscle weakness (generalized) (11/21/19) Physical Therapy Treatment Note PT-OP-A Visit Information Start: 11/28/18 17:41 Freq: Status: Active Protocol: Document 11/21/19 13:47 HH (Rec: 11/21/19 14:33 HH [id number]) Out-Patient Physical Therapy Visit Information Visit Information Visit Type Treatment Note Visit Note pt did not use SPC today. Visit Start Time 14:46 Visit Stop Time 15:36 Total Visit Minutes 50 Visit Number 48 Number of SIGHT EFFECTS SPECIALIST Visits 0 PT-OP-B Current Condition Start: 11/28/18 17:41 Freq: Status: Active Protocol: Document 04/30/19 12:00 DCW (Rec: 04/30/19 17:55 DCW [id number]) Current Condition History of Current Condition Onset Date Two years Current Complaints Worsening back pain History of Current Condition Pt is a 78 year old female presenting with progressive low back pain. Pt notes she has had lumbar issues off and on for 20 years, but that six years ago, she was caring for her life partner, who was going through an illness at the time, and strained her back. It has been bad since then, and specifically worsening over the last two years. Additionally, pt notes that she pulled something on Monday in her left posterior hip, which has been causing even more pain and difficulty in her getting around. Pt notes that if she is sitting or lying down, she doesn't feel too bad, but if she stays in a position too samir, she has a large increase in pain when she tries to get up and move around. Pt feels like she has substantially decreased in her level of activity tolerance and overall fitness level. Pt reports that she tries to walk one block every day, and frequently is unable to do so. Pt also has in the past swam 3x/week, and now has not been to the pool in two years. ADDENDUM 04/30/19: Pt has a new referral for eval/treat of ongoing dizziness. Pt notes that dizziness occurs in episodes lasting seconds, and is brought on by lying back in bed or bending over to harness the dog. 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 The most prominent level of degenerative change is L3-L4, where there is a left lateral recess disc extrusion, with associated moderate to severe central canal narrowing. Moderate to severe bilateral neural foraminal narrowing is also seen at this level. Impression taken from Objective history of pt note from [facility] Arriaza on Prior Functional Status Baseline Function- ADL's Independent Baseline Function- Mobility Independent Baseline Function- Gait Walk multiple miles downtown Baseline Function- Recreation/Hobbies Swimming at community pool Current Functional Impairments (Reported) Functional Limitations- Mobility/Gait Pt unable to walk more than one block Functional Limitations- Recreation/ Pt has not gone to pool in [place] past two years. PT-OP-C Subjective Start: 11/28/18 17:41 Freq: Status: Active Protocol: Document 11/21/19 13:47 HH (Rec: 11/21/19 14:33 HH [id number]) OP-PT Subjective Patient Comments Patient Comments I have a good day today and i feel like i dont need the cane. PT-OP-F Manual Assessment Start: 11/28/18 17:41 Freq: Status: Active Protocol: Document 07/24/19 15:15 DCW (Rec: 07/24/19 15:48 DCW [id number]) Manual Assessments Soft Tissue Assessment Soft Tissue Mobility Assessment Severe tone and tenderness to palpation 3/4:Wincing and withdraw: bilateral QL, left piriformis, left ITB Moderate tone and tenderness to palpation 2/4: Pain with wincing: right piriformis, right ITB PT-OP-K Range of Motion Start: 11/28/18 17:41 Freq: Status: Active Protocol: Document 07/24/19 15:15 DCW (Rec: 07/24/19 15:48 DCW [id number]) Lumbar Spine Range of Motion Lumbar Spine Active Degrees Testing Position Standing Flexion 59 Extension 10 Lateral Flexion Left 54 Lateral Flexion Right 56 ROM Limitations Pain Comments Lateral flexion measured in cm from fingertip to floor. Extension limited secondary to pain PT-OP-L Special Tests Start: 11/28/18 17:41 Freq: Status: Active Protocol: Document 07/24/19 15:15 DCW (Rec: 07/24/19 15:48 DCW [id number]) Special Tests Lumbar Spine Special Tests Manual Traction Test Results Improves symptoms Compression Test Results Improves symptoms Hip Special Tests Piriformis Test Results B tenderness at Piriformis PARAS Test Results Positive left ipsilateral lateral hip pain PT-OP-M Strength Start: 11/28/18 17:41 Freq: Status: Active Protocol: Document 07/24/19 15:15 DCW (Rec: 07/24/19 15:48 DCW [id number]) Hip Strength Hip Manual Muscle Testing Right Flexion (L2) 4 Good Abduction 4 Good Adduction 4 Good External Rotation 4 Good Internal Rotation 4+ Good+ Left Flexion (L2) 4- Good- Abduction 4- Good- Adduction 4- Good- External Rotation 4+ Good+ Internal Rotation 4+ Good+ Knee Strength Knee Manual Muscle Testing Right Flexion (S2) 4+ Good+ Extension (L3) 5 Normal Left Flexion (S2) 4+ Good+ Extension (L3) 5 Normal Ankle/Foot Strength Ankle and Foot Manual Muscle Testing Right Dorsiflexion (L4) 4 Good Plantarflexion (S1) 4 Good Left Dorsiflexion (L4) 4 Good Plantarflexion (S1) 4 Good PT-OP-O Vestibular Start: 04/30/19 17:56 Freq: Status: Active Protocol: Document 04/30/19 12:00 DCW (Rec: 05/01/19 09:44 DCW [id number]) Vestibular Assessment Visual Testing Smooth Pursuits Horizontal Questionable saccadic movement when following left Smooth Pursuits Vertical WNL Saccades Horizontal WNL Positional Testing [place]-Hallpike Negative Left,Negative Right Rolling Test Positive Left,Positive Right,> 60 Seconds Comments Vestibular Comments Ageotropic nystagmus with roll test, continued entire time pt was positioned PT-OP-Q Treatments Start: 11/28/18 17:41 Freq: Status: Active Protocol: Document 11/21/19 13:47 HH (Rec: 11/21/19 14:33 HH [id number]) Cardio Equipment Recumbent Stepper (Sci-Fit) Duration (Minutes) 8 Resistance 2 Seat Position 10 Gym Equipment Shuttle Recovery Unilateral Squats Resistance 37# Shuttle Recovery Platform Stable Reps/Time x20 Bilateral Squats Resistance 75# Shuttle Recovery Platform Stable Reps/Time x20, x 15 Therapeutic Exercises Supine Exercises pelvic tilt Side bilateral Reps/Minutes 10 x2 Comments no cues needed lower trunk rotation Supine Exercise Name full range Side bilateral Equipment Used with red therapy ball Reps/Minutes 8 x 2 Comments no discomfort noted Standing Exercises stair tap Side bilateral Reps/Minutes 8x 2 Comments with B rails support Manual Therapy Treatment Soft Tissue Mobilization Piriformis Body Location R Piriformis Mobilization Type Strumming,Sustained Pressure Intensity/Depth Deep Body Position Sidelying L/S and glutes Body Location B L/S and glutes Mobilization Type Cross-Friction,Myofascial Release,Sustained Pressure Intensity/Depth Moderate Body Position Sidelying PT-OP-R Modalities Start: 11/28/18 17:41 Freq: Status: Active Protocol: Document 11/21/19 13:47 (Rec: 11/21/19 14:33 [id number]) Hot Pack/Cold Pack Treatment Hot Pack Location low back Patient Position Hooklying Treatment Duration (minutes) 10 Patient Tolerance Good PT-OP-T Assessment and Plan Start: 11/28/18 17:41 Freq: Status: Active Protocol: Document 11/21/19 13:47 (Rec: 11/21/19 14:33 [id number]) Physical Therapy Assessment Goals Four Impairment Core and hip weakness Short Term Goal (STG) Pt to demonstrate increased hip abduction bilaterally to 4 +/5 STG Duration 12/14/19 Degreasing Solution Mixer Goal (LTG) Goal Met:Pt to exhibit core/ TrA MMT 4-/5 Advance to 4+/5 LTG Duration 01/14/20 Three Impairment Pt has not been able to swim for two years Short Term Goal (STG) cont to progress 10/20 pt has not able to use pool d/ t limited access from coronavirus phase reopening protocol Degreasing Solution Mixer Goal (LTG) Pt to return to community pool independently for exercise with no increased back pain 02/21/19:Pt still limited due to open wounds on arms LTG Duration 01/14/20 Two Impairment Pt only able to walk <one square block due to pain Short Term Goal (STG) 10/20 pt stated she is able to amb for 10-15 mins without break Pt to ambulate 1/2 mile with no increased pain STG Duration 12/14/19 - Improving Degreasing Solution Mixer Goal (LTG) Pt to ambulate one mile with no increased pain LTG Duration 01/14/20 One Impairment Pt does not have an appropriate home exercise program Short Term Goal (STG) 10/20 goal met Pt to be independent and compliant with an appropriate HEP STG Duration Met Assessment Summary Assessment Pt has a good day today. Spent time educating pt to do daily walking to promote physical activity but pt stated she hates exercises but will attempt to complete 20 mins a day. Physical Therapy Plan Next Visit Focus/Plan Next Note Type Treatment Note Next Visit Plan 2/6MWT cont hip mobility, pelvic tilt flexion based ex. Isolated lumbar movements
--- NOTE | 2019-11-28 14:25 | PT.OTN ---
Current Diagnoses Polyneuropathy, unspecified (11/28/19) Benign paroxysmal vertigo, left ear (11/28/19) Pain in right hip (11/28/19) Pain in left hip (11/28/19) Stiffness of right hip, not elsewhere classified (11/28/19) Stiffness of left hip, not elsewhere classified (11/28/19) Spondylolisthesis, lumbar region (11/28/19) Spondylosis without myelopathy or radiculopathy, lumbosacral region (11/28/19) Other intervertebral disc displacement, lumbar region (11/28/19) Muscle weakness (generalized) (11/28/19) Physical Therapy Treatment Note PT-OP-A Visit Information Start: 11/28/18 17:41 Freq: Status: Active Protocol: Document 11/28/19 13:45 DCW (Rec: 11/28/19 14:25 DCW [id number]) Out-Patient Physical Therapy Visit Information Visit Information Visit Type Treatment Note Visit Start Time 13:45 Visit Stop Time 14:35 Total Visit Minutes 50 Visit Number 49 Number of FARM LABOR CONTRACTOR Visits 0 PT-OP-B Current Condition Start: 11/28/18 17:41 Freq: Status: Active Protocol: Document 04/30/19 12:00 DCW (Rec: 04/30/19 17:55 DCW [id number]) Current Condition History of Current Condition Onset Date Two years Current Complaints Worsening back pain History of Current Condition Pt is a 78 year old female presenting with progressive low back pain. Pt notes she has had lumbar issues off and on for 20 years, but that six years ago, she was caring for her life partner, who was going through an illness at the time, and strained her back. It has been bad since then, and specifically worsening over the last two years. Additionally, pt notes that she pulled something on Monday in her left posterior hip, which has been causing even more pain and difficulty in her getting around. Pt notes that if she is sitting or lying down, she doesn't feel too bad, but if she stays in a position too samir, she has a large increase in pain when she tries to get up and move around. Pt feels like she has substantially decreased in her level of activity tolerance and overall fitness level. Pt reports that she tries to walk one block every day, and frequently is unable to do so. Pt also has in the past swam 3x/week, and now has not been to the pool in two years. ADDENDUM 04/30/19: Pt has a new referral for eval/treat of ongoing dizziness. Pt notes that dizziness occurs in episodes lasting seconds, and is brought on by lying back in bed or bending over to harness the dog. 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 The most prominent level of degenerative change is L3-L4, where there is a left lateral recess disc extrusion, with associated moderate to severe central canal narrowing. Moderate to severe bilateral neural foraminal narrowing is also seen at this level. Impression taken from Objective history of pt note from MIRACLE Arriaza on Prior Functional Status Baseline Function- ADL's Independent Baseline Function- Mobility Independent Baseline Function- Gait Walk multiple miles downtown Baseline Function- Recreation/Hobbies Swimming at community pool Current Functional Impairments (Reported) Functional Limitations- Mobility/Gait Pt unable to walk more than one block Functional Limitations- Recreation/ Pt has not gone to pool in [place] past two years. PT-OP-C Subjective Start: 11/28/18 17:41 Freq: Status: Active Protocol: Document 11/28/19 13:45 DCW (Rec: 11/28/19 14:25 DCW [id number]) OP-PT Subjective Patient Comments Patient Comments I don't know what it is, but my wrists have been sore and swollen today. PT-OP-F Manual Assessment Start: 11/28/18 17:41 Freq: Status: Active Protocol: Document 07/24/19 15:15 DCW (Rec: 07/24/19 15:48 DCW [id number]) Manual Assessments Soft Tissue Assessment Soft Tissue Mobility Assessment Severe tone and tenderness to palpation 3/4:Wincing and withdraw: bilateral QL, left piriformis, left ITB Moderate tone and tenderness to palpation 2/4: Pain with wincing: right piriformis, right ITB PT-OP-K Range of Motion Start: 11/28/18 17:41 Freq: Status: Active Protocol: Document 07/24/19 15:15 DCW (Rec: 07/24/19 15:48 DCW [id number]) Lumbar Spine Range of Motion Lumbar Spine Active Degrees Testing Position Standing Flexion 59 Extension 10 Lateral Flexion Left 54 Lateral Flexion Right 56 ROM Limitations Pain Comments Lateral flexion measured in cm from fingertip to floor. Extension limited secondary to pain PT-OP-L Special Tests Start: 11/28/18 17:41 Freq: Status: Active Protocol: Document 07/24/19 15:15 DCW (Rec: 07/24/19 15:48 DCW [id number]) Special Tests Lumbar Spine Special Tests Manual Traction Test Results Improves symptoms Compression Test Results Improves symptoms Hip Special Tests Piriformis Test Results B tenderness at Piriformis PARAS Test Results Positive left ipsilateral lateral hip pain PT-OP-M Strength Start: 11/28/18 17:41 Freq: Status: Active Protocol: Document 07/24/19 15:15 DCW (Rec: 07/24/19 15:48 DCW [id number]) Hip Strength Hip Manual Muscle Testing Right Flexion (L2) 4 Good Abduction 4 Good Adduction 4 Good External Rotation 4 Good Internal Rotation 4+ Good+ Left Flexion (L2) 4- Good- Abduction 4- Good- Adduction 4- Good- External Rotation 4+ Good+ Internal Rotation 4+ Good+ Knee Strength Knee Manual Muscle Testing Right Flexion (S2) 4+ Good+ Extension (L3) 5 Normal Left Flexion (S2) 4+ Good+ Extension (L3) 5 Normal Ankle/Foot Strength Ankle and Foot Manual Muscle Testing Right Dorsiflexion (L4) 4 Good Plantarflexion (S1) 4 Good Left Dorsiflexion (L4) 4 Good Plantarflexion (S1) 4 Good PT-OP-O Vestibular Start: 04/30/19 17:56 Freq: Status: Active Protocol: Document 04/30/19 12:00 DCW (Rec: 05/01/19 09:44 DCW [id number]) Vestibular Assessment Visual Testing Smooth Pursuits Horizontal Questionable saccadic movement when following left Smooth Pursuits Vertical WNL Saccades Horizontal WNL Positional Testing [place]-Hallpike Negative Left,Negative Right Rolling Test Positive Left,Positive Right,> 60 Seconds Comments Vestibular Comments Ageotropic nystagmus with roll test, continued entire time pt was positioned PT-OP-Q Treatments Start: 11/28/18 17:41 Freq: Status: Active Protocol: Document 11/28/19 13:45 DCW (Rec: 11/28/19 14:25 DCW [id number]) Cardio Equipment Recumbent Elliptical (Biodex) Duration (Minutes) 5 Resistance 4 Seat Position 8 Gym Equipment Shuttle Recovery Unilateral Squats Resistance 37# Shuttle Recovery Platform Stable Reps/Time x20 Bilateral Squats Resistance 75# Shuttle Recovery Platform Stable Reps/Time x20, x 15 Therapeutic Exercises Other Exercises Resisted Ambulation Other Exercise Name Side-stepping, Fwd, Bkwd Resistance Yellow Manual Therapy Treatment Soft Tissue Mobilization Piriformis Body Location R Piriformis Mobilization Type Strumming,Sustained Pressure Intensity/Depth Deep Body Position Sidelying L/S and glutes Body Location B L/S and glutes Mobilization Type Cross-Friction,Myofascial Release,Sustained Pressure Intensity/Depth Moderate Body Position Sidelying PT-OP-R Modalities Start: 11/28/18 17:41 Freq: Status: Active Protocol: Document 11/28/19 13:45 DCW (Rec: 11/28/19 14:25 DCW [id number]) Hot Pack/Cold Pack Treatment Hot Pack Location low back Patient Position Hooklying Treatment Duration (minutes) 10 Patient Tolerance Good PT-OP-T Assessment and Plan Start: 11/28/18 17:41 Freq: Status: Active Protocol: Document 11/28/19 13:45 DCW (Rec: 11/28/19 14:25 DCW [id number]) Physical Therapy Assessment Goals Four Impairment Core and hip weakness Short Term Goal (STG) Pt to demonstrate increased hip abduction bilaterally to 4 +/5 STG Duration 12/14/19 Tunnel Kiln Repairer Goal (LTG) Goal Met:Pt to exhibit core/ TrA MMT 4-/5 Advance to 4+/5 LTG Duration 01/14/20 Three Impairment Pt has not been able to swim for two years Short Term Goal (STG) cont to progress 10/20 pt has not able to use pool d/ t limited access from coronavirus phase reopening protocol Tunnel Kiln Repairer Goal (LTG) Pt to return to community pool independently for exercise with no increased back pain 02/21/19:Pt still limited due to open wounds on arms LTG Duration 01/14/20 Two Impairment Pt only able to walk <one square block due to pain Short Term Goal (STG) 10/20 pt stated she is able to amb for 10-15 mins without break Pt to ambulate 1/2 mile with no increased pain STG Duration 12/14/19 - Improving Tunnel Kiln Repairer Goal (LTG) Pt to ambulate one mile with no increased pain LTG Duration 01/14/20 One Impairment Pt does not have an appropriate home exercise program Short Term Goal (STG) 10/20 goal met Pt to be independent and compliant with an appropriate HEP STG Duration Met Assessment Summary Assessment Pt doing fairly well today, no increased complaints of pain or stiffness. Physical Therapy Plan Frequency and Duration Frequency of Treatment 2x/Week Duration of Treatment 10 weeks Plan of Care Start Date 10/21/19 Plan of Care End Date 01/04/20 Therapeutic Interventions Therapeutic Interventions Aquatic Therapy,Home Exercise Program,Joint Mobilizations, Manual Therapy,Self-Care/Home Management,Soft Tissue Mobilization,Therapeutic Activities,Therapeutic Exercises Modalities Cold Pack/Ice Massage,Electric Stimulation,Hot Packs, Ultrasound Next Visit Focus/Plan Next Note Type Treatment Note Next Visit Plan 2/6MWT cont hip mobility, pelvic tilt flexion based ex. Isolated lumbar movements
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
--- NOTE | 2019-12-05 14:34 | PT.OTN ---
Current Diagnoses Polyneuropathy, unspecified (12/05/19) Benign paroxysmal vertigo, left ear (12/05/19) Pain in right hip (12/05/19) Pain in left hip (12/05/19) Stiffness of right hip, not elsewhere classified (12/05/19) Stiffness of left hip, not elsewhere classified (12/05/19) Spondylolisthesis, lumbar region (12/05/19) Spondylosis without myelopathy or radiculopathy, lumbosacral region (12/05/19) Other intervertebral disc displacement, lumbar region (12/05/19) Muscle weakness (generalized) (12/05/19) Physical Therapy Treatment Note PT-OP-A Visit Information Start: 11/28/18 17:41 Freq: Status: Active Protocol: Document 12/05/19 13:48 DCW (Rec: 12/05/19 14:33 DCW [id number]) Out-Patient Physical Therapy Visit Information Visit Information Visit Type Treatment Note Visit Start Time 13:48 Visit Stop Time 14:35 Total Visit Minutes 47 Visit Number 51 Number of OCCUPATIONAL HEALTH RN Visits 0 PT-OP-B Current Condition Start: 11/28/18 17:41 Freq: Status: Active Protocol: Document 04/30/19 12:00 DCW (Rec: 04/30/19 17:55 DCW [id number]) Current Condition History of Current Condition Onset Date Two years Current Complaints Worsening back pain History of Current Condition Pt is a 78 year old female presenting with progressive low back pain. Pt notes she has had lumbar issues off and on for 20 years, but that six years ago, she was caring for her life partner, who was going through an illness at the time, and strained her back. It has been bad since then, and specifically worsening over the last two years. Additionally, pt notes that she pulled something on Monday in her left posterior hip, which has been causing even more pain and difficulty in her getting around. Pt notes that if she is sitting or lying down, she doesn't feel too bad, but if she stays in a position too samir, she has a large increase in pain when she tries to get up and move around. Pt feels like she has substantially decreased in her level of activity tolerance and overall fitness level. Pt reports that she tries to walk one block every day, and frequently is unable to do so. Pt also has in the past swam 3x/week, and now has not been to the pool in two years. ADDENDUM 04/30/19: Pt has a new referral for eval/treat of ongoing dizziness. Pt notes that dizziness occurs in episodes lasting seconds, and is brought on by lying back in bed or bending over to harness the dog. 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 The most prominent level of degenerative change is L3-L4, where there is a left lateral recess disc extrusion, with associated moderate to severe central canal narrowing. Moderate to severe bilateral neural foraminal narrowing is also seen at this level. Impression taken from Objective history of pt note from MIRACLE Arriaza on Prior Functional Status Baseline Function- ADL's Independent Baseline Function- Mobility Independent Baseline Function- Gait Walk multiple miles downtown Baseline Function- Recreation/Hobbies Swimming at community pool Current Functional Impairments (Reported) Functional Limitations- Mobility/Gait Pt unable to walk more than one block Functional Limitations- Recreation/ Pt has not gone to pool in [place] past two years. PT-OP-C Subjective Start: 11/28/18 17:41 Freq: Status: Active Protocol: Document 12/05/19 13:48 DCW (Rec: 12/05/19 14:33 DCW [id number]) OP-PT Subjective Patient Comments Patient Comments Pt reports she feels like she is healing up pretty quickly following her fall last week. Admits she did hit both knees when she fell, and they're still pretty sore today. PT-OP-F Manual Assessment Start: 11/28/18 17:41 Freq: Status: Active Protocol: Document 07/24/19 15:15 DCW (Rec: 07/24/19 15:48 DCW [id number]) Manual Assessments Soft Tissue Assessment Soft Tissue Mobility Assessment Severe tone and tenderness to palpation 3/4:Wincing and withdraw: bilateral QL, left piriformis, left ITB Moderate tone and tenderness to palpation 2/4: Pain with wincing: right piriformis, right ITB PT-OP-K Range of Motion Start: 11/28/18 17:41 Freq: Status: Active Protocol: Document 07/24/19 15:15 DCW (Rec: 07/24/19 15:48 DCW [id number]) Lumbar Spine Range of Motion Lumbar Spine Active Degrees Testing Position Standing Flexion 59 Extension 10 Lateral Flexion Left 54 Lateral Flexion Right 56 ROM Limitations Pain Comments Lateral flexion measured in cm from fingertip to floor. Extension limited secondary to pain PT-OP-L Special Tests Start: 11/28/18 17:41 Freq: Status: Active Protocol: Document 07/24/19 15:15 DCW (Rec: 07/24/19 15:48 DCW [id number]) Special Tests Lumbar Spine Special Tests Manual Traction Test Results Improves symptoms Compression Test Results Improves symptoms Hip Special Tests Piriformis Test Results B tenderness at Piriformis PARAS Test Results Positive left ipsilateral lateral hip pain PT-OP-M Strength Start: 11/28/18 17:41 Freq: Status: Active Protocol: Document 07/24/19 15:15 DCW (Rec: 07/24/19 15:48 DCW [id number]) Hip Strength Hip Manual Muscle Testing Right Flexion (L2) 4 Good Abduction 4 Good Adduction 4 Good External Rotation 4 Good Internal Rotation 4+ Good+ Left Flexion (L2) 4- Good- Abduction 4- Good- Adduction 4- Good- External Rotation 4+ Good+ Internal Rotation 4+ Good+ Knee Strength Knee Manual Muscle Testing Right Flexion (S2) 4+ Good+ Extension (L3) 5 Normal Left Flexion (S2) 4+ Good+ Extension (L3) 5 Normal Ankle/Foot Strength Ankle and Foot Manual Muscle Testing Right Dorsiflexion (L4) 4 Good Plantarflexion (S1) 4 Good Left Dorsiflexion (L4) 4 Good Plantarflexion (S1) 4 Good PT-OP-O Vestibular Start: 04/30/19 17:56 Freq: Status: Active Protocol: Document 04/30/19 12:00 DCW (Rec: 05/01/19 09:44 DCW [id number]) Vestibular Assessment Visual Testing Smooth Pursuits Horizontal Questionable saccadic movement when following left Smooth Pursuits Vertical WNL Saccades Horizontal WNL Positional Testing Rush-Hallpike Negative Left,Negative Right Rolling Test Positive Left,Positive Right,> 60 Seconds Comments Vestibular Comments Ageotropic nystagmus with roll test, continued entire time pt was positioned PT-OP-Q Treatments Start: 11/28/18 17:41 Freq: Status: Active Protocol: Document 12/05/19 13:48 DCW (Rec: 12/05/19 14:33 DCW [id number]) Cardio Equipment Recumbent Elliptical (Biodex) Duration (Minutes) 5 Resistance 4 Seat Position 8 Gym Equipment Shuttle Recovery Bilateral Heel Raises Resistance 62# Unilateral Squats Resistance 37# Shuttle Recovery Platform Stable Reps/Time x20 Bilateral Squats Resistance 75# Shuttle Recovery Platform Stable Reps/Time x20 L, x15 R Manual Therapy Treatment Soft Tissue Mobilization Piriformis Body Location R Piriformis Mobilization Type Strumming,Sustained Pressure Intensity/Depth Deep Body Position Sidelying L/S and glutes Body Location B L/S and glutes Mobilization Type Cross-Friction,Myofascial Release,Sustained Pressure Intensity/Depth Moderate Body Position Sidelying PT-OP-R Modalities Start: 11/28/18 17:41 Freq: Status: Active Protocol: Document 12/05/19 13:48 DCW (Rec: 12/05/19 14:33 DCW [id number]) Hot Pack/Cold Pack Treatment Hot Pack Location low back and cervical Patient Position Hooklying Treatment Duration (minutes) 10 Patient Tolerance Good PT-OP-T Assessment and Plan Start: 11/28/18 17:41 Freq: Status: Active Protocol: Document 12/05/19 13:48 DCW (Rec: 12/05/19 14:33 DCW [id number]) Physical Therapy Assessment Goals Four Impairment Core and hip weakness Short Term Goal (STG) Pt to demonstrate increased hip abduction bilaterally to 4 +/5 STG Duration 12/14/19 Residential Advisor Goal (LTG) Goal Met:Pt to exhibit core/ TrA MMT 4-/5 Advance to 4+/5 LTG Duration 01/14/20 Three Impairment Pt has not been able to swim for two years Short Term Goal (STG) cont to progress 10/20 pt has not able to use pool d/ t limited access from coronavirus phase reopening protocol Care Home Goal (LTG) Pt to return to community pool independently for exercise with no increased back pain 02/21/19:Pt still limited due to open wounds on arms LTG Duration 01/14/20 Two Impairment Pt only able to walk <one square block due to pain Short Term Goal (STG) 10/20 pt stated she is able to amb for 10-15 mins without break Pt to ambulate 1/2 mile with no increased pain STG Duration 12/14/19 - Improving Residential Advisor Goal (LTG) Pt to ambulate one mile with no increased pain LTG Duration 01/14/20 One Impairment Pt does not have an appropriate home exercise program Short Term Goal (STG) 10/20 goal met Pt to be independent and compliant with an appropriate HEP STG Duration Met Assessment Summary Assessment Pt recovering from her falls, no apparent new injuries in knees or back. Pt tolerated normal level of PT involvement with no increased pain or discomfort. Physical Therapy Plan Frequency and Duration Frequency of Treatment 2x/Week Duration of Treatment 10 weeks Plan of Care Start Date 10/21/19 Plan of Care End Date 01/04/20 Therapeutic Interventions Therapeutic Interventions Aquatic Therapy,Home Exercise Program,Joint Mobilizations, Manual Therapy,Self-Care/Home Management,Soft Tissue Mobilization,Therapeutic Activities,Therapeutic Exercises Modalities Cold Pack/Ice Massage,Electric Stimulation,Hot Packs, Ultrasound Next Visit Focus/Plan Next Note Type Treatment Note Next Visit Plan 2/6MWT cont hip mobility, pelvic tilt flexion based ex. Isolated lumbar movements
--- NOTE | 2019-12-10 12:28 | PT.OTN ---
Current Diagnoses Polyneuropathy, unspecified (12/10/19) Benign paroxysmal vertigo, left ear (12/10/19) Pain in right hip (12/10/19) Pain in left hip (12/10/19) Stiffness of right hip, not elsewhere classified (12/10/19) Stiffness of left hip, not elsewhere classified (12/10/19) Spondylolisthesis, lumbar region (12/10/19) Spondylosis without myelopathy or radiculopathy, lumbosacral region (12/10/19) Other intervertebral disc displacement, lumbar region (12/10/19) Muscle weakness (generalized) (12/10/19) Physical Therapy Treatment Note PT-OP-A Visit Information Start: 11/28/18 17:41 Freq: Status: Active Protocol: Document 12/10/19 11:33 HH (Rec: 12/10/19 12:28 HH [id number]) Out-Patient Physical Therapy Visit Information Visit Information Visit Type Treatment Note Visit Note pt is 15 mins late d/t MD appointments Visit Start Time 11:30 Visit Stop Time 12:18 Total Visit Minutes 48 Visit Number 52 Number of CLAIM TECHNICIAN Visits 0 PT-OP-B Current Condition Start: 11/28/18 17:41 Freq: Status: Active Protocol: Document 04/30/19 12:00 DCW (Rec: 04/30/19 17:55 DCW [id number]) Current Condition History of Current Condition Onset Date Two years Current Complaints Worsening back pain History of Current Condition Pt is a 78 year old female presenting with progressive low back pain. Pt notes she has had lumbar issues off and on for 20 years, but that six years ago, she was caring for her life partner, who was going through an illness at the time, and strained her back. It has been bad since then, and specifically worsening over the last two years. Additionally, pt notes that she pulled something on Monday in her left posterior hip, which has been causing even more pain and difficulty in her getting around. Pt notes that if she is sitting or lying down, she doesn't feel too bad, but if she stays in a position too samir, she has a large increase in pain when she tries to get up and move around. Pt feels like she has substantially decreased in her level of activity tolerance and overall fitness level. Pt reports that she tries to walk one block every day, and frequently is unable to do so. Pt also has in the past swam 3x/week, and now has not been to the pool in two years. ADDENDUM 04/30/19: Pt has a new referral for eval/treat of ongoing dizziness. Pt notes that dizziness occurs in episodes lasting seconds, and is brought on by lying back in bed or bending over to harness the dog. 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 The most prominent level of degenerative change is L3-L4, where there is a left lateral recess disc extrusion, with associated moderate to severe central canal narrowing. Moderate to severe bilateral neural foraminal narrowing is also seen at this level. Impression taken from Objective history of pt note from [facility] on Prior Functional Status Baseline Function- ADL's Independent Baseline Function- Mobility Independent Baseline Function- Gait Walk multiple miles downtown Baseline Function- Recreation/Hobbies Swimming at [place] pool Current Functional Impairments (Reported) Functional Limitations- Mobility/Gait Pt unable to walk more than one block Functional Limitations- Recreation/ Pt has not gone to pool in [place] past two years. PT-OP-C Subjective Start: 11/28/18 17:41 Freq: Status: Active Protocol: Document 12/10/19 11:33 HH (Rec: 12/10/19 12:28 HH [id number]) OP-PT Subjective Patient Comments Patient Comments My knees are getting there but still stiff here and there . I could still get around. PT-OP-F Manual Assessment Start: 11/28/18 17:41 Freq: Status: Active Protocol: Document 07/24/19 15:15 DCW (Rec: 07/24/19 15:48 DCW [id number]) Manual Assessments Soft Tissue Assessment Soft Tissue Mobility Assessment Severe tone and tenderness to palpation 3/4:Wincing and withdraw: bilateral QL, left piriformis, left ITB Moderate tone and tenderness to palpation 2/4: Pain with wincing: right piriformis, right ITB PT-OP-K Range of Motion Start: 11/28/18 17:41 Freq: Status: Active Protocol: Document 07/24/19 15:15 DCW (Rec: 07/24/19 15:48 DCW [id number]) Lumbar Spine Range of Motion Lumbar Spine Active Degrees Testing Position Standing Flexion 59 Extension 10 Lateral Flexion Left 54 Lateral Flexion Right 56 ROM Limitations Pain Comments Lateral flexion measured in cm from fingertip to floor. Extension limited secondary to pain PT-OP-L Special Tests Start: 11/28/18 17:41 Freq: Status: Active Protocol: Document 07/24/19 15:15 DCW (Rec: 07/24/19 15:48 DCW [id number]) Special Tests Lumbar Spine Special Tests Manual Traction Test Results Improves symptoms Compression Test Results Improves symptoms Hip Special Tests Piriformis Test Results B tenderness at Piriformis PARAS Test Results Positive left ipsilateral lateral hip pain PT-OP-M Strength Start: 11/28/18 17:41 Freq: Status: Active Protocol: Document 07/24/19 15:15 DCW (Rec: 07/24/19 15:48 DCW [id number]) Hip Strength Hip Manual Muscle Testing Right Flexion (L2) 4 Good Abduction 4 Good Adduction 4 Good External Rotation 4 Good Internal Rotation 4+ Good+ Left Flexion (L2) 4- Good- Abduction 4- Good- Adduction 4- Good- External Rotation 4+ Good+ Internal Rotation 4+ Good+ Knee Strength Knee Manual Muscle Testing Right Flexion (S2) 4+ Good+ Extension (L3) 5 Normal Left Flexion (S2) 4+ Good+ Extension (L3) 5 Normal Ankle/Foot Strength Ankle and Foot Manual Muscle Testing Right Dorsiflexion (L4) 4 Good Plantarflexion (S1) 4 Good Left Dorsiflexion (L4) 4 Good Plantarflexion (S1) 4 Good PT-OP-O Vestibular Start: 04/30/19 17:56 Freq: Status: Active Protocol: Document 04/30/19 12:00 DCW (Rec: 05/01/19 09:44 DCW [id number]) Vestibular Assessment Visual Testing Smooth Pursuits Horizontal Questionable saccadic movement when following left Smooth Pursuits Vertical WNL Saccades Horizontal WNL Positional Testing Rush-Hallpike Negative Left,Negative Right Rolling Test Positive Left,Positive Right,> 60 Seconds Comments Vestibular Comments Ageotropic nystagmus with roll test, continued entire time pt was positioned PT-OP-Q Treatments Start: 11/28/18 17:41 Freq: Status: Active Protocol: Document 12/10/19 11:33 HH (Rec: 12/10/19 12:28 HH [id number]) Cardio Equipment Recumbent Stepper (Sci-Fit) Duration (Minutes) 8 Resistance 3 Seat Position 9 Other 1.0 mile Gym Equipment Shuttle Recovery Bilateral Squats Resistance 75# Shuttle Recovery Platform Stable Reps/Time 12 x 2 Therapeutic Exercises Sitting Exercises floor touch Side bilateral Reps/Minutes 8 reps Comments no pain noted. reaches Sitting Exercise Name with thera ball (diaz) Reps/Minutes 8 times Comments lumbar flexion focused flexion/extension Sitting Exercise Name hands behind head Reps/Minutes 8 times Comments active lumbar flexion and extension, pain at end range extension Standing Exercises step taps Equipment Used with grab bars Reps/Minutes 10 x 2 Manual Therapy Treatment Joint Mobilizations patella mob Direction lateral medial Grade III Body Position Supine Reps/Duration 8 mins Comments L has less mobility. PT-OP-R Modalities Start: 11/28/18 17:41 Freq: Status: Active Protocol: Document 12/10/19 11:33 (Rec: 12/10/19 12:28 [id number]) Hot Pack/Cold Pack Treatment Hot Pack Location low back and cervical Patient Position Hooklying Treatment Duration (minutes) 8 Patient Tolerance Good PT-OP-T Assessment and Plan Start: 11/28/18 17:41 Freq: Status: Active Protocol: Document 12/10/19 11:33 (Rec: 12/10/19 12:28 [id number]) Physical Therapy Assessment Goals Four Impairment Core and hip weakness Short Term Goal (STG) Pt to demonstrate increased hip abduction bilaterally to 4 +/5 STG Duration 12/14/19 Mcfp Goal (LTG) Goal Met:Pt to exhibit core/ TrA MMT 4-/5 Advance to 4+/5 LTG Duration 01/14/20 Three Impairment Pt has not been able to swim for two years Short Term Goal (STG) cont to progress 10/20 pt has not able to use pool d/ t limited access from coronavirus phase reopening protocol Tablet Making Machine Operator Goal (LTG) Pt to return to community pool independently for exercise with no increased back pain 02/21/19:Pt still limited due to open wounds on arms LTG Duration 01/14/20 Two Impairment Pt only able to walk <one square block due to pain Short Term Goal (STG) 10/20 pt stated she is able to amb for 10-15 mins without break Pt to ambulate 1/2 mile with no increased pain STG Duration 12/14/19 - Improving Tablet Making Machine Operator Goal (LTG) Pt to ambulate one mile with no increased pain LTG Duration 01/14/20 One Impairment Pt does not have an appropriate home exercise program Short Term Goal (STG) 10/20 goal met Pt to be independent and compliant with an appropriate HEP STG Duration Met Assessment Summary Assessment Pt cont c/o stiffness at knees R>L. Did patella mob today and she felt better with step up ex. Spent time educating pt on increasing activity intensity for following visits to improve her endurance. Physical Therapy Plan Frequency and Duration Frequency of Treatment 2x/Week Duration of Treatment 10 weeks Plan of Care Start Date 10/21/19 Plan of Care End Date 01/04/20 Next Visit Focus/Plan Next Note Type Treatment Note Next Visit Plan 2/6MWT cont hip mobility, pelvic tilt flexion based ex. Isolated lumbar movements
--- NOTE | 2019-12-24 15:11 | PT.OTN ---
Current Diagnoses Polyneuropathy, unspecified (12/24/19) Benign paroxysmal vertigo, left ear (12/24/19) Pain in right hip (12/24/19) Pain in left hip (12/24/19) Stiffness of right hip, not elsewhere classified (12/24/19) Stiffness of left hip, not elsewhere classified (12/24/19) Spondylolisthesis, lumbar region (12/24/19) Spondylosis without myelopathy or radiculopathy, lumbosacral region (12/24/19) Other intervertebral disc displacement, lumbar region (12/24/19) Muscle weakness (generalized) (12/24/19) Physical Therapy Treatment Note PT-OP-A Visit Information Start: 11/28/18 17:41 Freq: Status: Active Protocol: Document 12/24/19 14:32 HH (Rec: 12/24/19 15:10 [id number]) Out-Patient Physical Therapy Visit Information Visit Information Visit Type Treatment Note Visit Note Pt is going to have fistula surgery on the R forearm for upcoming dialysis treatment Visit Start Time 14:32 Visit Stop Time 15:18 Total Visit Minutes 46 Visit Number 53 Number of WOODWORKING BELT SANDER Visits 0 PT-OP-B Current Condition Start: 11/28/18 17:41 Freq: Status: Active Protocol: Document 04/30/19 12:00 DCW (Rec: 04/30/19 17:55 DCW [id number]) Current Condition History of Current Condition Onset Date Two years Current Complaints Worsening back pain History of Current Condition Pt is a 78 year old female presenting with progressive low back pain. Pt notes she has had lumbar issues off and on for 20 years, but that six years ago, she was caring for her life partner, who was going through an illness at the time, and strained her back. It has been bad since then, and specifically worsening over the last two years. Additionally, pt notes that she pulled something on Monday in her left posterior hip, which has been causing even more pain and difficulty in her getting around. Pt notes that if she is sitting or lying down, she doesn't feel too bad, but if she stays in a position too samir, she has a large increase in pain when she tries to get up and move around. Pt feels like she has substantially decreased in her level of activity tolerance and overall fitness level. Pt reports that she tries to walk one block every day, and frequently is unable to do so. Pt also has in the past swam 3x/week, and now has not been to the pool in two years. ADDENDUM 04/30/19: Pt has a new referral for eval/treat of ongoing dizziness. Pt notes that dizziness occurs in episodes lasting seconds, and is brought on by lying back in bed or bending over to harness the dog. 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 The most prominent level of degenerative change is L3-L4, where there is a left lateral recess disc extrusion, with associated moderate to severe central canal narrowing. Moderate to severe bilateral neural foraminal narrowing is also seen at this level. Impression taken from Objective history of pt note from MIRACLE Arriaza on Prior Functional Status Baseline Function- ADL's Independent Baseline Function- Mobility Independent Baseline Function- Gait Walk multiple miles downtown Baseline Function- Recreation/Hobbies Swimming at [employer] pool Current Functional Impairments (Reported) Functional Limitations- Mobility/Gait Pt unable to walk more than one block Functional Limitations- Recreation/ Pt has not gone to pool in [place] past two years. PT-OP-C Subjective Start: 11/28/18 17:41 Freq: Status: Active Protocol: Document 12/24/19 14:32 HH (Rec: 12/24/19 15:10 HH [id number]) OP-PT Subjective Patient Comments Patient Comments I think i twisted my ankle last monday and jose been having some heel pain after but not bothering me now., PT-OP-F Manual Assessment Start: 11/28/18 17:41 Freq: Status: Active Protocol: Document 07/24/19 15:15 DCW (Rec: 07/24/19 15:48 DCW [id number]) Manual Assessments Soft Tissue Assessment Soft Tissue Mobility Assessment Severe tone and tenderness to palpation 3/4:Wincing and withdraw: bilateral QL, left piriformis, left ITB Moderate tone and tenderness to palpation 2/4: Pain with wincing: right piriformis, right ITB PT-OP-K Range of Motion Start: 11/28/18 17:41 Freq: Status: Active Protocol: Document 07/24/19 15:15 DCW (Rec: 07/24/19 15:48 DCW [id number]) Lumbar Spine Range of Motion Lumbar Spine Active Degrees Testing Position Standing Flexion 59 Extension 10 Lateral Flexion Left 54 Lateral Flexion Right 56 ROM Limitations Pain Comments Lateral flexion measured in cm from fingertip to floor. Extension limited secondary to pain PT-OP-L Special Tests Start: 11/28/18 17:41 Freq: Status: Active Protocol: Document 07/24/19 15:15 DCW (Rec: 07/24/19 15:48 DCW [id number]) Special Tests Lumbar Spine Special Tests Manual Traction Test Results Improves symptoms Compression Test Results Improves symptoms Hip Special Tests Piriformis Test Results B tenderness at Piriformis PARAS Test Results Positive left ipsilateral lateral hip pain PT-OP-M Strength Start: 11/28/18 17:41 Freq: Status: Active Protocol: Document 07/24/19 15:15 DCW (Rec: 07/24/19 15:48 DCW [id number]) Hip Strength Hip Manual Muscle Testing Right Flexion (L2) 4 Good Abduction 4 Good Adduction 4 Good External Rotation 4 Good Internal Rotation 4+ Good+ Left Flexion (L2) 4- Good- Abduction 4- Good- Adduction 4- Good- External Rotation 4+ Good+ Internal Rotation 4+ Good+ Knee Strength Knee Manual Muscle Testing Right Flexion (S2) 4+ Good+ Extension (L3) 5 Normal Left Flexion (S2) 4+ Good+ Extension (L3) 5 Normal Ankle/Foot Strength Ankle and Foot Manual Muscle Testing Right Dorsiflexion (L4) 4 Good Plantarflexion (S1) 4 Good Left Dorsiflexion (L4) 4 Good Plantarflexion (S1) 4 Good PT-OP-O Vestibular Start: 04/30/19 17:56 Freq: Status: Active Protocol: Document 04/30/19 12:00 DCW (Rec: 05/01/19 09:44 DCW [id number]) Vestibular Assessment Visual Testing Smooth Pursuits Horizontal Questionable saccadic movement when following left Smooth Pursuits Vertical WNL Saccades Horizontal WNL Positional Testing Rush-Hallpike Negative Left,Negative Right Rolling Test Positive Left,Positive Right,> 60 Seconds Comments Vestibular Comments Ageotropic nystagmus with roll test, continued entire time pt was positioned PT-OP-Q Treatments Start: 11/28/18 17:41 Freq: Status: Active Protocol: Document 12/24/19 14:32 (Rec: 12/24/19 15:10 [id number]) Cardio Equipment Recumbent Stepper (Sci-Fit) Duration (Minutes) 8 Resistance 3 Seat Position 9 Other 1.0 mile Gym Equipment Shuttle Recovery Unilateral Squats Resistance 50# Shuttle Recovery Platform Stable Reps/Time 12x 2 Bilateral Squats Resistance 75# then 87# Shuttle Recovery Platform Stable Reps/Time 12 x1, then 10 x1 Therapeutic Exercises Standing Exercises step up Side bilateral Equipment Used wthi grab bars Reps/Minutes 8x2 step taps Equipment Used with grab bars Reps/Minutes 10 x 2 Manual Therapy Treatment Soft Tissue Mobilization L/S and glutes Body Location B L/S and glutes Mobilization Type Cross-Friction,Myofascial Release,Sustained Pressure Intensity/Depth Moderate Body Position Sidelying PT-OP-R Modalities Start: 11/28/18 17:41 Freq: Status: Active Protocol: Document 12/24/19 14:32 (Rec: 12/24/19 15:10 [id number]) Hot Pack/Cold Pack Treatment Hot Pack Location low back and cervical Patient Position Hooklying Treatment Duration (minutes) 8 Patient Tolerance Good PT-OP-T Assessment and Plan Start: 11/28/18 17:41 Freq: Status: Active Protocol: Document 12/24/19 14:32 (Rec: 12/24/19 15:10 [id number]) Physical Therapy Assessment Goals Four Impairment Core and hip weakness Short Term Goal (STG) Pt to demonstrate increased hip abduction bilaterally to 4 +/5 STG Duration 12/14/19 Hand Inserter Operator Goal (LTG) Goal Met:Pt to exhibit core/ TrA MMT 4-/5 Advance to 4+/5 LTG Duration 01/14/20 Three Impairment Pt has not been able to swim for two years Short Term Goal (STG) cont to progress 10/20 pt has not able to use pool d/ t limited access from coronavirus phase reopening protocol Hand Inserter Operator Goal (LTG) Pt to return to community pool independently for exercise with no increased back pain 02/21/19:Pt still limited due to open wounds on arms LTG Duration 01/14/20 Two Impairment Pt only able to walk <one square block due to pain Short Term Goal (STG) 8 pt stated she is able to amb for 10-15 mins without break Pt to ambulate 1/2 mile with no increased pain STG Duration 12/14/19 - Improving [facility] Goal (LTG) Pt to ambulate one mile with no increased pain LTG Duration 01/14/20 One Impairment Pt does not have an appropriate home exercise program Short Term Goal (STG) 10/20 goal met Pt to be independent and compliant with an appropriate HEP STG Duration Met Assessment Summary Assessment Pt is going to have fistula surgery on forearm next monday for upcoming dialysis and she will skip therapy for a few weeks. Cont POC on overall strengthening and conditioning . Pt kong session very well today with min breaks required . She was able to progress to 50# for SL squat and 87# for B squat. Physical Therapy Plan Frequency and Duration Frequency of Treatment 2x/Week Duration of Treatment 10 weeks Plan of Care Start Date 10/21/19 Plan of Care End Date 01/04/20 Next Visit Focus/Plan Next Note Type Treatment Note Next Visit Plan 2/6MWT cont hip mobility, pelvic tilt flexion based ex. Isolated lumbar movements
--- NOTE | 2019-12-26 11:56 | PT.OTN ---
Current Diagnoses Polyneuropathy, unspecified (12/26/19) Benign paroxysmal vertigo, left ear (12/26/19) Pain in right hip (12/26/19) Pain in left hip (12/26/19) Stiffness of right hip, not elsewhere classified (12/26/19) Stiffness of left hip, not elsewhere classified (12/26/19) Spondylolisthesis, lumbar region (12/26/19) Spondylosis without myelopathy or radiculopathy, lumbosacral region (12/26/19) Other intervertebral disc displacement, lumbar region (12/26/19) Muscle weakness (generalized) (12/26/19) Physical Therapy Treatment Note PT-OP-A Visit Information Start: 11/28/18 17:41 Freq: Status: Active Protocol: Document 12/26/19 11:21 HH (Rec: 12/26/19 11:56 HH [id number]) Out-Patient Physical Therapy Visit Information Visit Information Visit Type Treatment Note Visit Note pt 14 mins late. Pt is going to have fistula surgery on the R forearm for upcoming dialysis treatment Visit Start Time 11:25 Visit Stop Time 15:18 Total Visit Minutes 46 Visit Number 54 Number of PARTS SALES ADVISOR Visits 0 PT-OP-B Current Condition Start: 11/28/18 17:41 Freq: Status: Active Protocol: Document 04/30/19 12:00 DCW (Rec: 04/30/19 17:55 DCW [id number]) Current Condition History of Current Condition Onset Date Two years Current Complaints Worsening back pain History of Current Condition Pt is a 78 year old female presenting with progressive low back pain. Pt notes she has had lumbar issues off and on for 20 years, but that six years ago, she was caring for her life partner, who was going through an illness at the time, and strained her back. It has been bad since then, and specifically worsening over the last two years. Additionally, pt notes that she pulled something on Monday in her left posterior hip, which has been causing even more pain and difficulty in her getting around. Pt notes that if she is sitting or lying down, she doesn't feel too bad, but if she stays in a position too samir, she has a large increase in pain when she tries to get up and move around. Pt feels like she has substantially decreased in her level of activity tolerance and overall fitness level. Pt reports that she tries to walk one block every day, and frequently is unable to do so. Pt also has in the past swam 3x/week, and now has not been to the pool in two years. ADDENDUM 04/30/19: Pt has a new referral for eval/treat of ongoing dizziness. Pt notes that dizziness occurs in episodes lasting seconds, and is brought on by lying back in bed or bending over to harness the dog. 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 The most prominent level of degenerative change is L3-L4, where there is a left lateral recess disc extrusion, with associated moderate to severe central canal narrowing. Moderate to severe bilateral neural foraminal narrowing is also seen at this level. Impression taken from Objective history of pt note from MIRAC[facility] Arriaza on Prior Functional Status Baseline Function- ADL's Independent Baseline Function- Mobility Independent Baseline Function- Gait Walk multiple miles downtown Baseline Function- Recreation/Hobbies Swimming at [employer] pool Current Functional Impairments (Reported) Functional Limitations- Mobility/Gait Pt unable to walk more than one block Functional Limitations- Recreation/ Pt has not gone to pool in [place] past two years. PT-OP-C Subjective Start: 11/28/18 17:41 Freq: Status: Active Protocol: Document 12/26/19 11:21 HH (Rec: 12/26/19 11:56 HH [id number]) OP-PT Subjective Patient Comments Patient Comments Im doing okay. PT-OP-F Manual Assessment Start: 11/28/18 17:41 Freq: Status: Active Protocol: Document 07/24/19 15:15 DCW (Rec: 07/24/19 15:48 DCW [id number]) Manual Assessments Soft Tissue Assessment Soft Tissue Mobility Assessment Severe tone and tenderness to palpation 3/4:Wincing and withdraw: bilateral QL, left piriformis, left ITB Moderate tone and tenderness to palpation 2/4: Pain with wincing: right piriformis, right ITB PT-OP-K Range of Motion Start: 11/28/18 17:41 Freq: Status: Active Protocol: Document 07/24/19 15:15 DCW (Rec: 07/24/19 15:48 DCW [id number]) Lumbar Spine Range of Motion Lumbar Spine Active Degrees Testing Position Standing Flexion 59 Extension 10 Lateral Flexion Left 54 Lateral Flexion Right 56 ROM Limitations Pain Comments Lateral flexion measured in cm from fingertip to floor. Extension limited secondary to pain PT-OP-L Special Tests Start: 11/28/18 17:41 Freq: Status: Active Protocol: Document 07/24/19 15:15 DCW (Rec: 07/24/19 15:48 DCW [id number]) Special Tests Lumbar Spine Special Tests Manual Traction Test Results Improves symptoms Compression Test Results Improves symptoms Hip Special Tests Piriformis Test Results B tenderness at Piriformis PARAS Test Results Positive left ipsilateral lateral hip pain PT-OP-M Strength Start: 11/28/18 17:41 Freq: Status: Active Protocol: Document 07/24/19 15:15 DCW (Rec: 07/24/19 15:48 DCW [id number]) Hip Strength Hip Manual Muscle Testing Right Flexion (L2) 4 Good Abduction 4 Good Adduction 4 Good External Rotation 4 Good Internal Rotation 4+ Good+ Left Flexion (L2) 4- Good- Abduction 4- Good- Adduction 4- Good- External Rotation 4+ Good+ Internal Rotation 4+ Good+ Knee Strength Knee Manual Muscle Testing Right Flexion (S2) 4+ Good+ Extension (L3) 5 Normal Left Flexion (S2) 4+ Good+ Extension (L3) 5 Normal Ankle/Foot Strength Ankle and Foot Manual Muscle Testing Right Dorsiflexion (L4) 4 Good Plantarflexion (S1) 4 Good Left Dorsiflexion (L4) 4 Good Plantarflexion (S1) 4 Good PT-OP-O Vestibular Start: 04/30/19 17:56 Freq: Status: Active Protocol: Document 04/30/19 12:00 DCW (Rec: 05/01/19 09:44 DCW [id number]) Vestibular Assessment Visual Testing Smooth Pursuits Horizontal Questionable saccadic movement when following left Smooth Pursuits Vertical WNL Saccades Horizontal WNL Positional Testing Rush-Hallpike Negative Left,Negative Right Rolling Test Positive Left,Positive Right,> 60 Seconds Comments Vestibular Comments Ageotropic nystagmus with roll test, continued entire time pt was positioned PT-OP-Q Treatments Start: 11/28/18 17:41 Freq: Status: Active Protocol: Document 12/26/19 11:21 HH (Rec: 12/26/19 11:56 HH [id number]) Cardio Equipment Recumbent Elliptical (Biodex) Duration (Minutes) 5 Resistance 1-4 Gym Equipment Shuttle Recovery Bilateral Squats Resistance #50, #75, #87 Reps/Time 10 x1, 10 x1, 10 x2 Therapeutic Exercises Standing Exercises step up Side bilateral Equipment Used wt one grab bar on either side Reps/Minutes 8x2 PT-OP-R Modalities Start: 11/28/18 17:41 Freq: Status: Active Protocol: Document 12/26/19 11:21 HH (Rec: 12/26/19 11:56 [id number]) Hot Pack/Cold Pack Treatment Hot Pack Location low back and cervical Patient Position Hooklying Treatment Duration (minutes) 12 Patient Tolerance Good PT-OP-T Assessment and Plan Start: 11/28/18 17:41 Freq: Status: Active Protocol: Document 12/26/19 11:21 (Rec: 12/26/19 11:56 [id number]) Physical Therapy Assessment Goals Four Impairment Core and hip weakness Short Term Goal (STG) Pt to demonstrate increased hip abduction bilaterally to 4 +/5 STG Duration 12/14/19 Bin Filler Goal (LTG) Goal Met:Pt to exhibit core/ TrA MMT 4-/5 Advance to 4+/5 LTG Duration 01/14/20 Three Impairment Pt has not been able to swim for two years Short Term Goal (STG) cont to progress 10/20 pt has not able to use pool d/ t limited access from coronavirus phase reopening protocol Bin Filler Goal (LTG) Pt to return to community pool independently for exercise with no increased back pain 02/21/19:Pt still limited due to open wounds on arms LTG Duration 01/14/20 Two Impairment Pt only able to walk <one square block due to pain Short Term Goal (STG) 10/20 pt stated she is able to amb for 10-15 mins without break Pt to ambulate 1/2 mile with no increased pain STG Duration 12/14/19 - Improving Prison Goal (LTG) Pt to ambulate one mile with no increased pain LTG Duration 01/14/20 One Impairment Pt does not have an appropriate home exercise program Short Term Goal (STG) 10/20 goal met Pt to be independent and compliant with an appropriate HEP STG Duration Met Assessment Summary Assessment Pt is going to have fistula surgery on forearm next monday for upcoming dialysis. Will f /u with pt if shes available for therapy. Physical Therapy Plan Next Visit Focus/Plan Next Note Type Treatment Note Next Visit Plan 2/6MWT cont hip mobility, pelvic tilt flexion based ex. Isolated lumbar movements
--- NOTE | 2020-01-06 14:28 | PT.OTN ---
Current Diagnoses Polyneuropathy, unspecified (01/06/20) Benign paroxysmal vertigo, left ear (01/06/20) Pain in right hip (01/06/20) Pain in left hip (01/06/20) Stiffness of right hip, not elsewhere classified (01/06/20) Stiffness of left hip, not elsewhere classified (01/06/20) Spondylolisthesis, lumbar region (01/06/20) Spondylosis without myelopathy or radiculopathy, lumbosacral region (01/06/20) Other intervertebral disc displacement, lumbar region (01/06/20) Muscle weakness (generalized) (01/06/20) Physical Therapy Treatment Note PT-OP-A Visit Information Start: 11/28/18 17:41 Freq: Status: Active Protocol: Document 01/06/20 13:45 DCW (Rec: 01/06/20 14:28 DCW [id number]) Out-Patient Physical Therapy Visit Information Visit Information Visit Type Progress Note Visit Start Time 13:45 Visit Stop Time 14:30 Total Visit Minutes 45 Visit Number 55 Number of DEMURRAGE WORKER Visits 0 PT-OP-B Current Condition Start: 11/28/18 17:41 Freq: Status: Active Protocol: Document 04/30/19 12:00 DCW (Rec: 04/30/19 17:55 DCW [id number]) Current Condition History of Current Condition Onset Date Two years Current Complaints Worsening back pain History of Current Condition Pt is a 78 year old female presenting with progressive low back pain. Pt notes she has had lumbar issues off and on for 20 years, but that six years ago, she was caring for her life partner, who was going through an illness at the time, and strained her back. It has been bad since then, and specifically worsening over the last two years. Additionally, pt notes that she pulled something on Monday in her left posterior hip, which has been causing even more pain and difficulty in her getting around. Pt notes that if she is sitting or lying down, she doesn't feel too bad, but if she stays in a position too samir, she has a large increase in pain when she tries to get up and move around. Pt feels like she has substantially decreased in her level of activity tolerance and overall fitness level. Pt reports that she tries to walk one block every day, and frequently is unable to do so. Pt also has in the past swam 3x/week, and now has not been to the pool in two years. ADDENDUM 04/30/19: Pt has a new referral for eval/treat of ongoing dizziness. Pt notes that dizziness occurs in episodes lasting seconds, and is brought on by lying back in bed or bending over to harness the dog. 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 The most prominent level of degenerative change is L3-L4, where there is a left lateral recess disc extrusion, with associated moderate to severe central canal narrowing. Moderate to severe bilateral neural foraminal narrowing is also seen at this level. Impression taken from Objective history of pt note from MIRAC[facility] Arriaza on Prior Functional Status Baseline Function- ADL's Independent Baseline Function- Mobility Independent Baseline Function- Gait Walk multiple miles downtown Baseline Function- Recreation/Hobbies Swimming at community pool Current Functional Impairments (Reported) Functional Limitations- Mobility/Gait Pt unable to walk more than one block Functional Limitations- Recreation/ Pt has not gone to pool in [place] past two years. PT-OP-C Subjective Start: 11/28/18 17:41 Freq: Status: Active Protocol: Document 01/06/20 13:45 DCW (Rec: 01/06/20 14:28 DCW [id number]) OP-PT Subjective Patient Comments Patient Comments Pt has had a very difficulty last few weeks. Pt reports that she has essentially been on bedrest for the last ten days. Pt began having a sudden pain in her left foot along the heel, which lasted ~5 days , and then she had a cyst on her bottom, which she then had lanced and was found to be infected, so she had to go on antibiotics, which forced her to miss her scheduled surgery. Then, pt's right foot began bothering her, and she heard a snap, and felt like her arch collapsed. Was seen at her PCP office, and best Ddx at the moment is that she tore a ligament. Pt notes today is the first time she has been able to walk without pain since it occurred 12/27/19. PT-OP-F Manual Assessment Start: 11/28/18 17:41 Freq: Status: Active Protocol: Document 01/06/20 13:45 DCW (Rec: 01/06/20 14:07 DCW [id number]) Manual Assessments Soft Tissue Assessment Soft Tissue Mobility Assessment Moderate tone and tenderness to palpation 2/4:Pain with wincing: bilateral QL, bilateral piriformis PT-OP-K Range of Motion Start: 11/28/18 17:41 Freq: Status: Active Protocol: Document 01/06/20 13:45 DCW (Rec: 01/06/20 14:07 DCW [id number]) Lumbar Spine Range of Motion Lumbar Spine Active Degrees Testing Position Standing Flexion 64 Extension 15 Lateral Flexion Left 60 Lateral Flexion Right 59 ROM Limitations Muscle Weakness,Pain PT-OP-L Special Tests Start: 11/28/18 17:41 Freq: Status: Active Protocol: Document 01/06/20 13:45 DCW (Rec: 01/06/20 14:07 DCW [id number]) Special Tests Lumbar Spine Special Tests Manual Traction Test Results Improves symptoms Compression Test Results Improves symptoms Hip Special Tests Piriformis Test Results B tenderness at Piriformis PARAS Test Results Positive left ipsilateral lateral hip pain PT-OP-M Strength Start: 11/28/18 17:41 Freq: Status: Active Protocol: Document 01/06/20 13:45 DCW (Rec: 01/06/20 14:07 DCW [id number]) Trunk Strength Trunk Manual Muscle Testing Core Stabilization Pt able to properly contract TrA with verbal cues, holds SLR for 10 seconds MMT: 4/5 Hip Strength Hip Manual Muscle Testing Right Flexion (L2) 4+ Good+ Abduction 4 Good Adduction 4 Good External Rotation 5 Normal Internal Rotation 5 Normal Left Flexion (L2) 4 Good Abduction 4 Good Adduction 4 Good External Rotation 5 Normal Internal Rotation 5 Normal Knee Strength Knee Manual Muscle Testing Right Flexion (S2) 4+ Good+ Extension (L3) 5 Normal Left Flexion (S2) 4+ Good+ Extension (L3) 5 Normal Ankle/Foot Strength Ankle and Foot Manual Muscle Testing Right Dorsiflexion (L4) 4+ Good+ Plantarflexion (S1) 4 Good Left Dorsiflexion (L4) 4+ Good+ Plantarflexion (S1) 4 Good PT-OP-O Vestibular Start: 04/30/19 17:56 Freq: Status: Active Protocol: Document 04/30/19 12:00 DCW (Rec: 05/01/19 09:44 DCW [id number]) Vestibular Assessment Visual Testing Smooth Pursuits Horizontal Questionable saccadic movement when following left Smooth Pursuits Vertical WNL Saccades Horizontal WNL Positional Testing [place]-Hallpike Negative Left,Negative Right Rolling Test Positive Left,Positive Right,> 60 Seconds Comments Vestibular Comments Ageotropic nystagmus with roll test, continued entire time pt was positioned PT-OP-Q Treatments Start: 11/28/18 17:41 Freq: Status: Active Protocol: Document 01/06/20 13:45 DCW (Rec: 01/06/20 14:28 DCW [id number]) Manual Therapy Treatment Soft Tissue Mobilization L/S and glutes Body Location B L/S and glutes Mobilization Type Cross-Friction,Myofascial Release,Sustained Pressure Intensity/Depth Moderate Body Position Sidelying Other Other Manual Treatments Testing, MMT, ROM, Palpation PT-OP-R Modalities Start: 11/28/18 17:41 Freq: Status: Active Protocol: Document 01/06/20 13:45 DCW (Rec: 01/06/20 14:28 DCW [id number]) Hot Pack/Cold Pack Treatment Hot Pack Location low back and cervical Patient Position Hooklying Treatment Duration (minutes) 12 Patient Tolerance Good PT-OP-T Assessment and Plan Start: 11/28/18 17:41 Freq: Status: Active Protocol: Document 01/06/20 13:45 DCW (Rec: 01/06/20 14:28 DCW [id number]) Physical Therapy Assessment Goals Four Impairment Core and hip weakness Short Term Goal (STG) Pt to demonstrate increased hip abduction bilaterally to 4 +/5 STG Duration 02/06/20 - Improving Human Resources Receptionist Goal (LTG) Goal Met:Pt to exhibit core/ TrA MMT 4-/5 Advance to 4+/5 LTG Duration 03/07/20 - Improving Three Impairment Pt has not been able to swim for two years Short Term Goal (STG) cont to progress 10/20 pt has not able to use pool d/ t limited access from coronavirus phase reopening protocol Nursing Home Goal (LTG) Pt to return to community pool independently for exercise with no increased back pain LTG Duration 03/07/20 Two Impairment Pt only able to walk <one square block due to pain Short Term Goal (STG) 10/20 pt stated she is able to amb for 10-15 mins without break Pt to ambulate 1/2 mile with no increased pain STG Duration 02/06/20 - Improving Human Resources Receptionist Goal (LTG) Pt to ambulate one mile with no increased pain LTG Duration 03/07/20 One Impairment Pt does not have an appropriate home exercise program Short Term Goal (STG) 10/20 goal met Pt to be independent and compliant with an appropriate HEP STG Duration Met Assessment Summary Assessment Pt fistula surgery is on hold until she is off antibiotics, will continue PT until surgery . Discussed with pt today the need for direction from surgeon regatding continuing therapy after surgery. Physical Therapy Plan Frequency and Duration Frequency of Treatment 2x/Week Duration of Treatment 10 weeks Plan of Care Start Date 01/06/20 Plan of Care End Date 03/16/20 Next Visit Focus/Plan Next Note Type Treatment Note Next Visit Plan 2/6MWT cont hip mobility, pelvic tilt flexion based ex. Isolated lumbar movements
--- NOTE | 2020-01-13 14:30 | PT.OTN ---
Current Diagnoses Polyneuropathy, unspecified (01/13/20) Benign paroxysmal vertigo, left ear (01/13/20) Pain in right hip (01/13/20) Pain in left hip (01/13/20) Stiffness of right hip, not elsewhere classified (01/13/20) Stiffness of left hip, not elsewhere classified (01/13/20) Spondylolisthesis, lumbar region (01/13/20) Spondylosis without myelopathy or radiculopathy, lumbosacral region (01/13/20) Other intervertebral disc displacement, lumbar region (01/13/20) Muscle weakness (generalized) (01/13/20) Physical Therapy Treatment Note PT-OP-A Visit Information Start: 11/28/18 17:41 Freq: Status: Active Protocol: Document 01/13/20 13:45 DCW (Rec: 01/13/20 14:29 DCW [id number]) Out-Patient Physical Therapy Visit Information Visit Information Visit Type Treatment Note Visit Start Time 13:45 Visit Stop Time 14:35 Total Visit Minutes 50 Visit Number 55 Number of SANDING MACHINE OPERATOR OR TENDER Visits 0 PT-OP-B Current Condition Start: 11/28/18 17:41 Freq: Status: Active Protocol: Document 04/30/19 12:00 DCW (Rec: 04/30/19 17:55 DCW [id number]) Current Condition History of Current Condition Onset Date Two years Current Complaints Worsening back pain History of Current Condition Pt is a 78 year old female presenting with progressive low back pain. Pt notes she has had lumbar issues off and on for 20 years, but that six years ago, she was caring for her life partner, who was going through an illness at the time, and strained her back. It has been bad since then, and specifically worsening over the last two years. Additionally, pt notes that she pulled something on Monday in her left posterior hip, which has been causing even more pain and difficulty in her getting around. Pt notes that if she is sitting or lying down, she doesn't feel too bad, but if she stays in a position too samir, she has a large increase in pain when she tries to get up and move around. Pt feels like she has substantially decreased in her level of activity tolerance and overall fitness level. Pt reports that she tries to walk one block every day, and frequently is unable to do so. Pt also has in the past swam 3x/week, and now has not been to the pool in two years. ADDENDUM 04/30/19: Pt has a new referral for eval/treat of ongoing dizziness. Pt notes that dizziness occurs in episodes lasting seconds, and is brought on by lying back in bed or bending over to harness the dog. 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 The most prominent level of degenerative change is L3-L4, where there is a left lateral recess disc extrusion, with associated moderate to severe central canal narrowing. Moderate to severe bilateral neural foraminal narrowing is also seen at this level. Impression taken from Objective history of pt note from [facility] on Prior Functional Status Baseline Function- ADL's Independent Baseline Function- Mobility Independent Baseline Function- Gait Walk multiple miles downtown Baseline Function- Recreation/Hobbies Swimming at community pool Current Functional Impairments (Reported) Functional Limitations- Mobility/Gait Pt unable to walk more than one block Functional Limitations- Recreation/ Pt has not gone to pool in [place] past two years. PT-OP-C Subjective Start: 11/28/18 17:41 Freq: Status: Active Protocol: Document 01/13/20 13:45 DCW (Rec: 01/13/20 14:29 DCW [id number]) OP-PT Subjective Patient Comments Patient Comments Pt reports she canceled her second appointment last week because she felt nauseated and disoriented, feeling better today, but still not wonderful. PT-OP-F Manual Assessment Start: 11/28/18 17:41 Freq: Status: Active Protocol: Document 01/06/20 13:45 DCW (Rec: 01/06/20 14:07 DCW [id number]) Manual Assessments Soft Tissue Assessment Soft Tissue Mobility Assessment Moderate tone and tenderness to palpation 2/4:Pain with wincing: bilateral QL, bilateral piriformis PT-OP-K Range of Motion Start: 11/28/18 17:41 Freq: Status: Active Protocol: Document 01/06/20 13:45 DCW (Rec: 01/06/20 14:07 DCW [id number]) Lumbar Spine Range of Motion Lumbar Spine Active Degrees Testing Position Standing Flexion 64 Extension 15 Lateral Flexion Left 60 Lateral Flexion Right 59 ROM Limitations Muscle Weakness,Pain PT-OP-L Special Tests Start: 11/28/18 17:41 Freq: Status: Active Protocol: Document 01/06/20 13:45 DCW (Rec: 01/06/20 14:07 DCW [id number]) Special Tests Lumbar Spine Special Tests Manual Traction Test Results Improves symptoms Compression Test Results Improves symptoms Hip Special Tests Piriformis Test Results B tenderness at Piriformis PARAS Test Results Positive left ipsilateral lateral hip pain PT-OP-M Strength Start: 11/28/18 17:41 Freq: Status: Active Protocol: Document 01/06/20 13:45 DCW (Rec: 01/06/20 14:07 DCW [id number]) Trunk Strength Trunk Manual Muscle Testing Core Stabilization Pt able to properly contract TrA with verbal cues, holds SLR for 10 seconds MMT: 4/5 Hip Strength Hip Manual Muscle Testing Right Flexion (L2) 4+ Good+ Abduction 4 Good Adduction 4 Good External Rotation 5 Normal Internal Rotation 5 Normal Left Flexion (L2) 4 Good Abduction 4 Good Adduction 4 Good External Rotation 5 Normal Internal Rotation 5 Normal Knee Strength Knee Manual Muscle Testing Right Flexion (S2) 4+ Good+ Extension (L3) 5 Normal Left Flexion (S2) 4+ Good+ Extension (L3) 5 Normal Ankle/Foot Strength Ankle and Foot Manual Muscle Testing Right Dorsiflexion (L4) 4+ Good+ Plantarflexion (S1) 4 Good Left Dorsiflexion (L4) 4+ Good+ Plantarflexion (S1) 4 Good PT-OP-O Vestibular Start: 04/30/19 17:56 Freq: Status: Active Protocol: Document 04/30/19 12:00 DCW (Rec: 05/01/19 09:44 DCW [id number]) Vestibular Assessment Visual Testing Smooth Pursuits Horizontal Questionable saccadic movement when following left Smooth Pursuits Vertical WNL Saccades Horizontal WNL Positional Testing [place]-Hallpike Negative Left,Negative Right Rolling Test Positive Left,Positive Right,> 60 Seconds Comments Vestibular Comments Ageotropic nystagmus with roll test, continued entire time pt was positioned PT-OP-Q Treatments Start: 11/28/18 17:41 Freq: Status: Active Protocol: Document 01/13/20 13:45 DCW (Rec: 01/13/20 14:29 DCW [id number]) Cardio Equipment Recumbent Elliptical (Biodex) Duration (Minutes) 5 Resistance 4 Seat Position 8 Gym Equipment Shuttle Recovery Unilateral Squats Resistance 37# Reps/Time 2x10 Bilateral Squats Resistance 75# Reps/Time 2x10 Therapeutic Exercises Standing Exercises step up Side bilateral Equipment Used wth one grab bar on either side Reps/Minutes 8x2 step taps Equipment Used with grab bars Reps/Minutes 10 x 2 Manual Therapy Treatment Soft Tissue Mobilization Piriformis Body Location R Piriformis Mobilization Type Strumming,Sustained Pressure Intensity/Depth Deep Body Position Sidelying L/S and glutes Body Location B L/S and glutes Mobilization Type Cross-Friction,Myofascial Release,Sustained Pressure Intensity/Depth Moderate Body Position Sidelying PT-OP-R Modalities Start: 11/28/18 17:41 Freq: Status: Active Protocol: Document 01/13/20 13:45 DCW (Rec: 01/13/20 14:29 DCW [id number]) Hot Pack/Cold Pack Treatment Hot Pack Location low back Patient Position Hooklying Treatment Duration (minutes) 10 Patient Tolerance Good PT-OP-T Assessment and Plan Start: 11/28/18 17:41 Freq: Status: Active Protocol: Document 01/13/20 13:45 DCW (Rec: 01/13/20 14:29 DCW [id number]) Physical Therapy Assessment Impairments Impairments Activity Tolerance,Balance, Functional Activities, Functional Mobility,Pain,ROM, Soft Tissue Mobility,Strength, Vestibular Goals Four Impairment Core and hip weakness Short Term Goal (STG) Pt to demonstrate increased hip abduction bilaterally to 4 +/5 STG Duration 02/06/20 - Improving Digital Marketing Specialist Goal (LTG) Goal Met:Pt to exhibit core/ TrA MMT 4-/5 Advance to 4+/5 LTG Duration 03/07/20 - Improving Three Impairment Pt has not been able to swim for two years Short Term Goal (STG) cont to progress 10/20 pt has not able to use pool d/ t limited access from coronavirus phase reopening protocol [facility] Goal (LTG) Pt to return to community pool independently for exercise with no increased back pain LTG Duration 03/07/20 Two Impairment Pt only able to walk <one square block due to pain Short Term Goal (STG) 10/20 pt stated she is able to amb for 10-15 mins without break Pt to ambulate 1/2 mile with no increased pain STG Duration 02/06/20 - Improving [facility] Goal (LTG) Pt to ambulate one mile with no increased pain LTG Duration 03/07/20 One Impairment Pt does not have an appropriate home exercise program Short Term Goal (STG) 10/20 goal met Pt to be independent and compliant with an appropriate HEP STG Duration Met Assessment Summary Assessment Pt tolerating treatment well today, no requests for rest break, no complaints of fatigue. Pt low back mobility appears to be improving. Physical Therapy Plan Frequency and Duration Frequency of Treatment 2x/Week Duration of Treatment 10 weeks Plan of Care Start Date 01/06/20 Plan of Care End Date 03/16/20 Next Visit Focus/Plan Next Note Type Treatment Note Next Visit Plan 2/6MWT cont hip mobility, pelvic tilt flexion based ex. Isolated lumbar movements
--- NOTE | 2020-01-16 14:30 | PT.OTN ---
Current Diagnoses Polyneuropathy, unspecified (01/16/20) Benign paroxysmal vertigo, left ear (01/16/20) Pain in right hip (01/16/20) Pain in left hip (01/16/20) Stiffness of right hip, not elsewhere classified (01/16/20) Stiffness of left hip, not elsewhere classified (01/16/20) Spondylolisthesis, lumbar region (01/16/20) Spondylosis without myelopathy or radiculopathy, lumbosacral region (01/16/20) Other intervertebral disc displacement, lumbar region (01/16/20) Muscle weakness (generalized) (01/16/20) Physical Therapy Treatment Note PT-OP-A Visit Information Start: 11/28/18 17:41 Freq: Status: Active Protocol: Document 01/16/20 13:50 HH (Rec: 01/16/20 14:30 HH [id number]) Out-Patient Physical Therapy Visit Information Visit Information Visit Type Treatment Note Visit Start Time 13:50 Visit Stop Time 14:36 Total Visit Minutes 46 Visit Number 56 Number of RETAIL SHIFT LEADER Visits 0 PT-OP-B Current Condition Start: 11/28/18 17:41 Freq: Status: Active Protocol: Document 04/30/19 12:00 DCW (Rec: 04/30/19 17:55 DCW [id number]) Current Condition History of Current Condition Onset Date Two years Current Complaints Worsening back pain History of Current Condition Pt is a 78 year old female presenting with progressive low back pain. Pt notes she has had lumbar issues off and on for 20 years, but that six years ago, she was caring for her life partner, who was going through an illness at the time, and strained her back. It has been bad since then, and specifically worsening over the last two years. Additionally, pt notes that she pulled something on Monday in her left posterior hip, which has been causing even more pain and difficulty in her getting around. Pt notes that if she is sitting or lying down, she doesn't feel too bad, but if she stays in a position too samir, she has a large increase in pain when she tries to get up and move around. Pt feels like she has substantially decreased in her level of activity tolerance and overall fitness level. Pt reports that she tries to walk one block every day, and frequently is unable to do so. Pt also has in the past swam 3x/week, and now has not been to the pool in two years. ADDENDUM 04/30/19: Pt has a new referral for eval/treat of ongoing dizziness. Pt notes that dizziness occurs in episodes lasting seconds, and is brought on by lying back in bed or bending over to harness the dog. 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 The most prominent level of degenerative change is L3-L4, where there is a left lateral recess disc extrusion, with associated moderate to severe central canal narrowing. Moderate to severe bilateral neural foraminal narrowing is also seen at this level. Impression taken from Objective history of pt note from [facility] Arriaza on Prior Functional Status Baseline Function- ADL's Independent Baseline Function- Mobility Independent Baseline Function- Gait Walk multiple miles downtown Baseline Function- Recreation/Hobbies Swimming at community pool Current Functional Impairments (Reported) Functional Limitations- Mobility/Gait Pt unable to walk more than one block Functional Limitations- Recreation/ Pt has not gone to pool in [place] past two years. PT-OP-C Subjective Start: 11/28/18 17:41 Freq: Status: Active Protocol: Document 01/16/20 13:50 HH (Rec: 01/16/20 14:30 HH [id number]) OP-PT Subjective Patient Comments Patient Comments Im doing better. But i did gain 2 lbs. PT-OP-F Manual Assessment Start: 11/28/18 17:41 Freq: Status: Active Protocol: Document 01/06/20 13:45 DCW (Rec: 01/06/20 14:07 DCW [id number]) Manual Assessments Soft Tissue Assessment Soft Tissue Mobility Assessment Moderate tone and tenderness to palpation 2/4:Pain with wincing: bilateral QL, bilateral piriformis PT-OP-K Range of Motion Start: 11/28/18 17:41 Freq: Status: Active Protocol: Document 01/06/20 13:45 DCW (Rec: 01/06/20 14:07 DCW [id number]) Lumbar Spine Range of Motion Lumbar Spine Active Degrees Testing Position Standing Flexion 64 Extension 15 Lateral Flexion Left 60 Lateral Flexion Right 59 ROM Limitations Muscle Weakness,Pain PT-OP-L Special Tests Start: 11/28/18 17:41 Freq: Status: Active Protocol: Document 01/06/20 13:45 DCW (Rec: 01/06/20 14:07 DCW [id number]) Special Tests Lumbar Spine Special Tests Manual Traction Test Results Improves symptoms Compression Test Results Improves symptoms Hip Special Tests Piriformis Test Results B tenderness at Piriformis PARAS Test Results Positive left ipsilateral lateral hip pain PT-OP-M Strength Start: 11/28/18 17:41 Freq: Status: Active Protocol: Document 01/06/20 13:45 DCW (Rec: 01/06/20 14:07 DCW [id number]) Trunk Strength Trunk Manual Muscle Testing Core Stabilization Pt able to properly contract TrA with verbal cues, holds SLR for 10 seconds MMT: 4/5 Hip Strength Hip Manual Muscle Testing Right Flexion (L2) 4+ Good+ Abduction 4 Good Adduction 4 Good External Rotation 5 Normal Internal Rotation 5 Normal Left Flexion (L2) 4 Good Abduction 4 Good Adduction 4 Good External Rotation 5 Normal Internal Rotation 5 Normal Knee Strength Knee Manual Muscle Testing Right Flexion (S2) 4+ Good+ Extension (L3) 5 Normal Left Flexion (S2) 4+ Good+ Extension (L3) 5 Normal Ankle/Foot Strength Ankle and Foot Manual Muscle Testing Right Dorsiflexion (L4) 4+ Good+ Plantarflexion (S1) 4 Good Left Dorsiflexion (L4) 4+ Good+ Plantarflexion (S1) 4 Good PT-OP-O Vestibular Start: 04/30/19 17:56 Freq: Status: Active Protocol: Document 04/30/19 12:00 DCW (Rec: 05/01/19 09:44 DCW [id number]) Vestibular Assessment Visual Testing Smooth Pursuits Horizontal Questionable saccadic movement when following left Smooth Pursuits Vertical WNL Saccades Horizontal WNL Positional Testing Rush-Hallpike Negative Left,Negative Right Rolling Test Positive Left,Positive Right,> 60 Seconds Comments Vestibular Comments Ageotropic nystagmus with roll test, continued entire time pt was positioned PT-OP-Q Treatments Start: 11/28/18 17:41 Freq: Status: Active Protocol: Document 01/16/20 13:50 HH (Rec: 01/16/20 14:30 HH [id number]) Cardio Equipment Recumbent Elliptical ([employer]) Duration (Minutes) 5 Resistance 4 Seat Position 8 Gym Equipment Shuttle Recovery Unilateral Squats Resistance #50 Reps/Time 2x10 Bilateral Squats Resistance 75# and 87# Reps/Time 2x10 Therapeutic Exercises Standing Exercises step up Side bilateral Equipment Used wth one grab bar on either side Reps/Minutes 10 x3 step taps Equipment Used with grab bars Reps/Minutes 10 x 2 Manual Therapy Treatment Soft Tissue Mobilization L/S and glutes Body Location B L/S and glutes Mobilization Type Cross-Friction,Myofascial Release,Sustained Pressure Intensity/Depth Moderate Body Position Sidelying PT-OP-R Modalities Start: 11/28/18 17:41 Freq: Status: Active Protocol: Document 01/16/20 13:50 HH (Rec: 01/16/20 14:30 HH [id number]) Hot Pack/Cold Pack Treatment Hot Pack Location low back Patient Position Hooklying Treatment Duration (minutes) 10 Patient Tolerance Good PT-OP-T Assessment and Plan Start: 11/28/18 17:41 Freq: Status: Active Protocol: Document 01/16/20 13:50 HH (Rec: 01/16/20 14:30 HH [id number]) Physical Therapy Assessment Goals Four Impairment Core and hip weakness Short Term Goal (STG) Pt to demonstrate increased hip abduction bilaterally to 4 +/5 STG Duration 02/06/20 - Improving Bulldozer/Loader/Compactor/Scraper Goal (LTG) Goal Met:Pt to exhibit core/ TrA MMT 4-/5 Advance to 4+/5 LTG Duration 03/07/20 - Improving Three Impairment Pt has not been able to swim for two years Short Term Goal (STG) cont to progress 10/20 pt has not able to use pool d/ t limited access from coronavirus phase reopening protocol Longterm Goal (LTG) Pt to return to community pool independently for exercise with no increased back pain LTG Duration 03/07/20 Two Impairment Pt only able to walk <one square block due to pain Short Term Goal (STG) 10/20 pt stated she is able to amb for 10-15 mins without break Pt to ambulate 1/2 mile with no increased pain STG Duration 02/06/20 - Improving Bulldozer/Loader/Compactor/Scraper Goal (LTG) Pt to ambulate one mile with no increased pain LTG Duration 03/07/20 One Impairment Pt does not have an appropriate home exercise program Short Term Goal (STG) 10/20 goal met Pt to be independent and compliant with an appropriate HEP STG Duration Met Assessment Summary Assessment Pt kong session well. She is able to kong 50 lbs for SLS and 87 for B squat. She.overall has less soreness today. She is going to have fistual surgery next week and will be out of PT for a few weeks. Physical Therapy Plan Frequency and Duration Frequency of Treatment 2x/Week Duration of Treatment 10 weeks Plan of Care Start Date 01/06/20 Plan of Care End Date 03/16/20 Next Visit Focus/Plan Next Note Type Treatment Note Next Visit Plan 2/6MWT cont hip mobility, pelvic tilt flexion based ex. Isolated lumbar movements
--- NOTE | 2020-02-25 16:24 | PT.OTN ---
Current Diagnoses Polyneuropathy, unspecified (02/25/20) Benign paroxysmal vertigo, left ear (02/25/20) Pain in right hip (02/25/20) Pain in left hip (02/25/20) Stiffness of right hip, not elsewhere classified (02/25/20) Stiffness of left hip, not elsewhere classified (02/25/20) Spondylolisthesis, lumbar region (02/25/20) Spondylosis without myelopathy or radiculopathy, lumbosacral region (02/25/20) Other intervertebral disc displacement, lumbar region (02/25/20) Muscle weakness (generalized) (02/25/20) Physical Therapy Treatment Note PT-OP-A Visit Information Start: 11/28/18 17:41 Freq: Status: Active Protocol: Document 02/25/20 14:32 HH (Rec: 02/25/20 16:21 HH [id number]) Out-Patient Physical Therapy Visit Information Visit Information Visit Type Treatment Note Visit Note last visit = 01/15 Visit Start Time 14:33 Visit Stop Time 15:20 Total Visit Minutes 47 Visit Number 57 Number of GAS WELL PUMPER Visits 0 PT-OP-B Current Condition Start: 11/28/18 17:41 Freq: Status: Active Protocol: Document 04/30/19 12:00 DCW (Rec: 04/30/19 17:55 DCW [id number]) Current Condition History of Current Condition Onset Date Two years Current Complaints Worsening back pain History of Current Condition Pt is a 78 year old female presenting with progressive low back pain. Pt notes she has had lumbar issues off and on for 20 years, but that six years ago, she was caring for her life partner, who was going through an illness at the time, and strained her back. It has been bad since then, and specifically worsening over the last two years. Additionally, pt notes that she pulled something on Monday in her left posterior hip, which has been causing even more pain and difficulty in her getting around. Pt notes that if she is sitting or lying down, she doesn't feel too bad, but if she stays in a position too samir, she has a large increase in pain when she tries to get up and move around. Pt feels like she has substantially decreased in her level of activity tolerance and overall fitness level. Pt reports that she tries to walk one block every day, and frequently is unable to do so. Pt also has in the past swam 3x/week, and now has not been to the pool in two years. ADDENDUM 04/30/19: Pt has a new referral for eval/treat of ongoing dizziness. Pt notes that dizziness occurs in episodes lasting seconds, and is brought on by lying back in bed or bending over to harness the dog. 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 The most prominent level of degenerative change is L3-L4, where there is a left lateral recess disc extrusion, with associated moderate to severe central canal narrowing. Moderate to severe bilateral neural foraminal narrowing is also seen at this level. Impression taken from Objective history of pt note from [facility] on Prior Functional Status Baseline Function- ADL's Independent Baseline Function- Mobility Independent Baseline Function- Gait Walk multiple miles downtown Baseline Function- Recreation/Hobbies Swimming at community pool Current Functional Impairments (Reported) Functional Limitations- Mobility/Gait Pt unable to walk more than one block Functional Limitations- Recreation/ Pt has not gone to pool in [place] past two years. PT-OP-C Subjective Start: 11/28/18 17:41 Freq: Status: Active Protocol: Document 02/25/20 14:32 HH (Rec: 02/25/20 16:21 [id number]) OP-PT Subjective Patient Comments Patient Comments I had my fistula surgery done 01/21. I havent been walking as much but jose trying to march to get my steps. The cold and rain have been getting me. I am glad to be here again. My back started hurting again and hard for me to walk PT-OP-F Manual Assessment Start: 11/28/18 17:41 Freq: Status: Active Protocol: Document 01/06/20 13:45 DCW (Rec: 01/06/20 14:07 DCW [id number]) Manual Assessments Soft Tissue Assessment Soft Tissue Mobility Assessment Moderate tone and tenderness to palpation 2/4:Pain with wincing: bilateral QL, bilateral piriformis PT-OP-K Range of Motion Start: 11/28/18 17:41 Freq: Status: Active Protocol: Document 01/06/20 13:45 DCW (Rec: 01/06/20 14:07 DCW [id number]) Lumbar Spine Range of Motion Lumbar Spine Active Degrees Testing Position Standing Flexion 64 Extension 15 Lateral Flexion Left 60 Lateral Flexion Right 59 ROM Limitations Muscle Weakness,Pain PT-OP-L Special Tests Start: 11/28/18 17:41 Freq: Status: Active Protocol: Document 01/06/20 13:45 DCW (Rec: 01/06/20 14:07 DCW [id number]) Special Tests Lumbar Spine Special Tests Manual Traction Test Results Improves symptoms Compression Test Results Improves symptoms Hip Special Tests Piriformis Test Results B tenderness at Piriformis PARAS Test Results Positive left ipsilateral lateral hip pain PT-OP-M Strength Start: 11/28/18 17:41 Freq: Status: Active Protocol: Document 01/06/20 13:45 DCW (Rec: 01/06/20 14:07 DCW [id number]) Trunk Strength Trunk Manual Muscle Testing Core Stabilization Pt able to properly contract TrA with verbal cues, holds SLR for 10 seconds MMT: 4/5 Hip Strength Hip Manual Muscle Testing Right Flexion (L2) 4+ Good+ Abduction 4 Good Adduction 4 Good External Rotation 5 Normal Internal Rotation 5 Normal Left Flexion (L2) 4 Good Abduction 4 Good Adduction 4 Good External Rotation 5 Normal Internal Rotation 5 Normal Knee Strength Knee Manual Muscle Testing Right Flexion (S2) 4+ Good+ Extension (L3) 5 Normal Left Flexion (S2) 4+ Good+ Extension (L3) 5 Normal Ankle/Foot Strength Ankle and Foot Manual Muscle Testing Right Dorsiflexion (L4) 4+ Good+ Plantarflexion (S1) 4 Good Left Dorsiflexion (L4) 4+ Good+ Plantarflexion (S1) 4 Good PT-OP-O Vestibular Start: 04/30/19 17:56 Freq: Status: Active Protocol: Document 04/30/19 12:00 DCW (Rec: 05/01/19 09:44 DCW [id number]) Vestibular Assessment Visual Testing Smooth Pursuits Horizontal Questionable saccadic movement when following left Smooth Pursuits Vertical WNL Saccades Horizontal WNL Positional Testing [place]-Hallpike Negative Left,Negative Right Rolling Test Positive Left,Positive Right,> 60 Seconds Comments Vestibular Comments Ageotropic nystagmus with roll test, continued entire time pt was positioned PT-OP-Q Treatments Start: 11/28/18 17:41 Freq: Status: Active Protocol: Document 02/25/20 14:32 HH (Rec: 02/25/20 16:21 [id number]) Cardio Equipment Recumbent Stepper ([employer]) Duration (Minutes) 6 Resistance 2.5 Seat Position 10 Gym Equipment Shuttle Recovery Unilateral Squats Resistance #50 Reps/Time 2x10 Bilateral Squats Resistance 75# and 87# Reps/Time 2x10 Therapeutic Exercises Supine Exercises bridges Side bilateral Reps/Minutes 10 x2 Sidelying Exercises clamshell Side bilateral Reps/Minutes 10 x2 Sitting Exercises STS Side bilateral Reps/Minutes 5 x 4 Comments witohut UE push off. reaches Equipment Used silver therapy ball Reps/Minutes 8 x2 Manual Therapy Treatment Soft Tissue Mobilization Piriformis Body Location R Piriformis Mobilization Type Strumming,Sustained Pressure Intensity/Depth Deep Body Position Sidelying L/S and glutes Body Location B L/S and glutes Mobilization Type Cross-Friction,Myofascial Release,Sustained Pressure Intensity/Depth Moderate Body Position Sidelying PT-OP-R Modalities Start: 11/28/18 17:41 Freq: Status: Active Protocol: Document 02/25/20 14:32 (Rec: 02/25/20 16:21 [id number]) Hot Pack/Cold Pack Treatment Hot Pack Location low back Patient Position Hooklying Treatment Duration (minutes) 10 Patient Tolerance Good PT-OP-T Assessment and Plan Start: 11/28/18 17:41 Freq: Status: Active Protocol: Document 02/25/20 14:32 (Rec: 02/25/20 16:21 [id number]) Physical Therapy Assessment Goals Four Impairment Core and hip weakness Short Term Goal (STG) Pt to demonstrate increased hip abduction bilaterally to 4 +/5 STG Duration 02/06/20 - Improving Alf Goal (LTG) Goal Met:Pt to exhibit core/ TrA MMT 4-/5 Advance to 4+/5 LTG Duration 03/07/20 - Improving Three Impairment Pt has not been able to swim for two years Short Term Goal (STG) cont to progress 10/20 pt has not able to use pool d/ t limited access from coronavirus phase reopening protocol Alf Goal (LTG) Pt to return to community pool independently for exercise with no increased back pain LTG Duration 03/07/20 Two Impairment Pt only able to walk <one square block due to pain Short Term Goal (STG) 10/20 pt stated she is able to amb for 10-15 mins without break Pt to ambulate 1/2 mile with no increased pain STG Duration 02/06/20 - Improving Power Wood Sawyer Goal (LTG) Pt to ambulate one mile with no increased pain LTG Duration 03/07/20 One Impairment Pt does not have an appropriate home exercise program Short Term Goal (STG) 10/20 goal met Pt to be independent and compliant with an appropriate HEP STG Duration Met Assessment Summary Assessment Pt just completed Physical Therapy Plan Frequency and Duration Frequency of Treatment 2x/Week Duration of Treatment 10 weeks Plan of Care Start Date 01/06/20 Plan of Care End Date 03/16/20 Next Visit Focus/Plan Next Note Type Treatment Note Next Visit Plan 2/6MWT cont hip mobility, pelvic tilt flexion based ex. Isolated lumbar movements
--- NOTE | 2020-03-02 11:14 | PT.OTN ---
Current Diagnoses Polyneuropathy, unspecified (03/02/20) Benign paroxysmal vertigo, left ear (03/02/20) Pain in right hip (03/02/20) Pain in left hip (03/02/20) Stiffness of right hip, not elsewhere classified (03/02/20) Stiffness of left hip, not elsewhere classified (03/02/20) Spondylolisthesis, lumbar region (03/02/20) Spondylosis without myelopathy or radiculopathy, lumbosacral region (03/02/20) Other intervertebral disc displacement, lumbar region (03/02/20) Muscle weakness (generalized) (03/02/20) Physical Therapy Treatment Note PT-OP-A Visit Information Start: 11/28/18 17:41 Freq: Status: Active Protocol: Document 03/02/20 10:36 DCW (Rec: 03/02/20 11:14 DCW [id number]) Out-Patient Physical Therapy Visit Information Visit Information Visit Type Treatment Note Visit Start Time 10:36 Visit Stop Time 11:25 Total Visit Minutes 49 Visit Number 58 Number of SOCIAL RESEARCH ASSISTANT Visits 0 PT-OP-B Current Condition Start: 11/28/18 17:41 Freq: Status: Active Protocol: Document 04/30/19 12:00 DCW (Rec: 04/30/19 17:55 DCW [id number]) Current Condition History of Current Condition Onset Date Two years Current Complaints Worsening back pain History of Current Condition Pt is a 78 year old female presenting with progressive low back pain. Pt notes she has had lumbar issues off and on for 20 years, but that six years ago, she was caring for her life partner, who was going through an illness at the time, and strained her back. It has been bad since then, and specifically worsening over the last two years. Additionally, pt notes that she pulled something on Monday in her left posterior hip, which has been causing even more pain and difficulty in her getting around. Pt notes that if she is sitting or lying down, she doesn't feel too bad, but if she stays in a position too samir, she has a large increase in pain when she tries to get up and move around. Pt feels like she has substantially decreased in her level of activity tolerance and overall fitness level. Pt reports that she tries to walk one block every day, and frequently is unable to do so. Pt also has in the past swam 3x/week, and now has not been to the pool in two years. ADDENDUM 04/30/19: Pt has a new referral for eval/treat of ongoing dizziness. Pt notes that dizziness occurs in episodes lasting seconds, and is brought on by lying back in bed or bending over to harness the dog. 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 The most prominent level of degenerative change is L3-L4, where there is a left lateral recess disc extrusion, with associated moderate to severe central canal narrowing. Moderate to severe bilateral neural foraminal narrowing is also seen at this level. Impression taken from Objective history of pt note from [facility]IRAC[facility] Arriaza on Prior Functional Status Baseline Function- ADL's Independent Baseline Function- Mobility Independent Baseline Function- Gait Walk multiple miles downtown Baseline Function- Recreation/Hobbies Swimming at community pool Current Functional Impairments (Reported) Functional Limitations- Mobility/Gait Pt unable to walk more than one block Functional Limitations- Recreation/ Pt has not gone to pool in [place] past two years. PT-OP-C Subjective Start: 11/28/18 17:41 Freq: Status: Active Protocol: Document 03/02/20 10:36 DCW (Rec: 03/02/20 11:14 DCW [id number]) OP-PT Subjective Patient Comments Patient Comments I'm running behind today. I brought my cane today, I don't think I need it, it's just so wet outside I wanted it just in case. PT-OP-F Manual Assessment Start: 11/28/18 17:41 Freq: Status: Active Protocol: Document 01/06/20 13:45 DCW (Rec: 01/06/20 14:07 DCW [id number]) Manual Assessments Soft Tissue Assessment Soft Tissue Mobility Assessment Moderate tone and tenderness to palpation 2/4:Pain with wincing: bilateral QL, bilateral piriformis PT-OP-K Range of Motion Start: 11/28/18 17:41 Freq: Status: Active Protocol: Document 01/06/20 13:45 DCW (Rec: 01/06/20 14:07 DCW [id number]) Lumbar Spine Range of Motion Lumbar Spine Active Degrees Testing Position Standing Flexion 64 Extension 15 Lateral Flexion Left 60 Lateral Flexion Right 59 ROM Limitations Muscle Weakness,Pain PT-OP-L Special Tests Start: 11/28/18 17:41 Freq: Status: Active Protocol: Document 01/06/20 13:45 DCW (Rec: 01/06/20 14:07 DCW [id number]) Special Tests Lumbar Spine Special Tests Manual Traction Test Results Improves symptoms Compression Test Results Improves symptoms Hip Special Tests Piriformis Test Results B tenderness at Piriformis PARAS Test Results Positive left ipsilateral lateral hip pain PT-OP-M Strength Start: 11/28/18 17:41 Freq: Status: Active Protocol: Document 01/06/20 13:45 DCW (Rec: 01/06/20 14:07 DCW [id number]) Trunk Strength Trunk Manual Muscle Testing Core Stabilization Pt able to properly contract TrA with verbal cues, holds SLR for 10 seconds MMT: 4/5 Hip Strength Hip Manual Muscle Testing Right Flexion (L2) 4+ Good+ Abduction 4 Good Adduction 4 Good External Rotation 5 Normal Internal Rotation 5 Normal Left Flexion (L2) 4 Good Abduction 4 Good Adduction 4 Good External Rotation 5 Normal Internal Rotation 5 Normal Knee Strength Knee Manual Muscle Testing Right Flexion (S2) 4+ Good+ Extension (L3) 5 Normal Left Flexion (S2) 4+ Good+ Extension (L3) 5 Normal Ankle/Foot Strength Ankle and Foot Manual Muscle Testing Right Dorsiflexion (L4) 4+ Good+ Plantarflexion (S1) 4 Good Left Dorsiflexion (L4) 4+ Good+ Plantarflexion (S1) 4 Good PT-OP-O Vestibular Start: 04/30/19 17:56 Freq: Status: Active Protocol: Document 04/30/19 12:00 DCW (Rec: 05/01/19 09:44 DCW [id number]) Vestibular Assessment Visual Testing Smooth Pursuits Horizontal Questionable saccadic movement when following left Smooth Pursuits Vertical WNL Saccades Horizontal WNL Positional Testing [place]-Hallpike Negative Left,Negative Right Rolling Test Positive Left,Positive Right,> 60 Seconds Comments Vestibular Comments Ageotropic nystagmus with roll test, continued entire time pt was positioned PT-OP-Q Treatments Start: 11/28/18 17:41 Freq: Status: Active Protocol: Document 03/02/20 10:36 DCW (Rec: 03/02/20 11:14 DCW [id number]) Cardio Equipment Recumbent Elliptical (Biodex) Duration (Minutes) 5 Resistance 6 Seat Position 8 Gym Equipment Shuttle Recovery Unilateral Squats Resistance #50 Reps/Time 2x10 Bilateral Squats Resistance 87# Reps/Time 2x10 Manual Therapy Treatment Soft Tissue Mobilization Piriformis Body Location R Piriformis Mobilization Type Strumming,Sustained Pressure Intensity/Depth Deep Body Position Sidelying L/S and glutes Body Location B L/S and glutes Mobilization Type Cross-Friction,Myofascial Release,Sustained Pressure Intensity/Depth Moderate Body Position Sidelying PT-OP-R Modalities Start: 11/28/18 17:41 Freq: Status: Active Protocol: Document 03/02/20 10:36 DCW (Rec: 03/02/20 11:14 DCW [id number]) Hot Pack/Cold Pack Treatment Hot Pack Location low back Patient Position Hooklying Treatment Duration (minutes) 10 Patient Tolerance Good PT-OP-T Assessment and Plan Start: 11/28/18 17:41 Freq: Status: Active Protocol: Document 03/02/20 10:36 DCW (Rec: 03/02/20 11:14 DCW [id number]) Physical Therapy Assessment Goals Four Impairment Core and hip weakness Short Term Goal (STG) Pt to demonstrate increased hip abduction bilaterally to 4 +/5 STG Duration 02/06/20 - Improving Usp Goal (LTG) Goal Met:Pt to exhibit core/ TrA MMT 4-/5 Advance to 4+/5 LTG Duration 03/07/20 - Improving Three Impairment Pt has not been able to swim for two years Short Term Goal (STG) cont to progress 10/20 pt has not able to use pool d/ t limited access from coronavirus phase reopening protocol Orthopedic Shoe Fitter Goal (LTG) Pt to return to community pool independently for exercise with no increased back pain LTG Duration 03/07/20 Two Impairment Pt only able to walk <one square block due to pain Short Term Goal (STG) 8 pt stated she is able to amb for 10-15 mins without break Pt to ambulate 1/2 mile with no increased pain STG Duration 02/06/20 - Improving Orthopedic Shoe Fitter Goal (LTG) Pt to ambulate one mile with no increased pain LTG Duration 03/07/20 One Impairment Pt does not have an appropriate home exercise program Short Term Goal (STG) 8 goal met Pt to be independent and compliant with an appropriate HEP STG Duration Met Assessment Summary Assessment Pt scheduled to begin infusions due to anemia shortly. Therapist's fewar is that pt will be very fatigued and will not do any home activity. Would likely benefit from ongoing PT during this time to ensure continued activity and mobility. Physical Therapy Plan Frequency and Duration Frequency of Treatment 2x/Week Duration of Treatment 10 weeks Plan of Care Start Date 01/06/20 Plan of Care End Date 03/16/20 Next Visit Focus/Plan Next Note Type Treatment Note Next Visit Plan 2/6MWT cont hip mobility, pelvic tilt flexion based ex. Isolated lumbar movements
--- NOTE | 2020-03-09 11:14 | PT.OTN ---
Current Diagnoses Polyneuropathy, unspecified (03/09/20) Benign paroxysmal vertigo, left ear (03/09/20) Pain in right hip (03/09/20) Pain in left hip (03/09/20) Stiffness of right hip, not elsewhere classified (03/09/20) Stiffness of left hip, not elsewhere classified (03/09/20) Spondylolisthesis, lumbar region (03/09/20) Spondylosis without myelopathy or radiculopathy, lumbosacral region (03/09/20) Other intervertebral disc displacement, lumbar region (03/09/20) Muscle weakness (generalized) (03/09/20) Physical Therapy Treatment Note PT-OP-A Visit Information Start: 11/28/18 17:41 Freq: Status: Active Protocol: Document 03/09/20 10:34 DCW (Rec: 03/09/20 11:14 DCW [id number]) Out-Patient Physical Therapy Visit Information Visit Information Visit Type Treatment Note Visit Start Time 10:34 Visit Stop Time 11:25 Total Visit Minutes 49 Visit Number 59 Number of FIREBRICK LAYER HELPER Visits 0 PT-OP-B Current Condition Start: 11/28/18 17:41 Freq: Status: Active Protocol: Document 04/30/19 12:00 DCW (Rec: 04/30/19 17:55 DCW [id number]) Current Condition History of Current Condition Onset Date Two years Current Complaints Worsening back pain History of Current Condition Pt is a 78 year old female presenting with progressive low back pain. Pt notes she has had lumbar issues off and on for 20 years, but that six years ago, she was caring for her life partner, who was going through an illness at the time, and strained her back. It has been bad since then, and specifically worsening over the last two years. Additionally, pt notes that she pulled something on Monday in her left posterior hip, which has been causing even more pain and difficulty in her getting around. Pt notes that if she is sitting or lying down, she doesn't feel too bad, but if she stays in a position too samir, she has a large increase in pain when she tries to get up and move around. Pt feels like she has substantially decreased in her level of activity tolerance and overall fitness level. Pt reports that she tries to walk one block every day, and frequently is unable to do so. Pt also has in the past swam 3x/week, and now has not been to the pool in two years. ADDENDUM 04/30/19: Pt has a new referral for eval/treat of ongoing dizziness. Pt notes that dizziness occurs in episodes lasting seconds, and is brought on by lying back in bed or bending over to harness the dog. 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 The most prominent level of degenerative change is L3-L4, where there is a left lateral recess disc extrusion, with associated moderate to severe central canal narrowing. Moderate to severe bilateral neural foraminal narrowing is also seen at this level. Impression taken from Objective history of pt note from [facility] Arriaza on Prior Functional Status Baseline Function- ADL's Independent Baseline Function- Mobility Independent Baseline Function- Gait Walk multiple miles downtown Baseline Function- Recreation/Hobbies Swimming at community pool Current Functional Impairments (Reported) Functional Limitations- Mobility/Gait Pt unable to walk more than one block Functional Limitations- Recreation/ Pt has not gone to pool in [place] past two years. PT-OP-C Subjective Start: 11/28/18 17:41 Freq: Status: Active Protocol: Document 03/09/20 10:34 DCW (Rec: 03/09/20 11:14 DCW [id number]) OP-PT Subjective Patient Comments Patient Comments As of this morning, I've officially lost 15 pounds. PT-OP-F Manual Assessment Start: 11/28/18 17:41 Freq: Status: Active Protocol: Document 01/06/20 13:45 DCW (Rec: 01/06/20 14:07 DCW [id number]) Manual Assessments Soft Tissue Assessment Soft Tissue Mobility Assessment Moderate tone and tenderness to palpation 2/4:Pain with wincing: bilateral QL, bilateral piriformis PT-OP-K Range of Motion Start: 11/28/18 17:41 Freq: Status: Active Protocol: Document 01/06/20 13:45 DCW (Rec: 01/06/20 14:07 DCW [id number]) Lumbar Spine Range of Motion Lumbar Spine Active Degrees Testing Position Standing Flexion 64 Extension 15 Lateral Flexion Left 60 Lateral Flexion Right 59 ROM Limitations Muscle Weakness,Pain PT-OP-L Special Tests Start: 11/28/18 17:41 Freq: Status: Active Protocol: Document 01/06/20 13:45 DCW (Rec: 01/06/20 14:07 DCW [id number]) Special Tests Lumbar Spine Special Tests Manual Traction Test Results Improves symptoms Compression Test Results Improves symptoms Hip Special Tests Piriformis Test Results B tenderness at Piriformis PARAS Test Results Positive left ipsilateral lateral hip pain PT-OP-M Strength Start: 11/28/18 17:41 Freq: Status: Active Protocol: Document 01/06/20 13:45 DCW (Rec: 01/06/20 14:07 DCW [id number]) Trunk Strength Trunk Manual Muscle Testing Core Stabilization Pt able to properly contract TrA with verbal cues, holds SLR for 10 seconds MMT: 4/5 Hip Strength Hip Manual Muscle Testing Right Flexion (L2) 4+ Good+ Abduction 4 Good Adduction 4 Good External Rotation 5 Normal Internal Rotation 5 Normal Left Flexion (L2) 4 Good Abduction 4 Good Adduction 4 Good External Rotation 5 Normal Internal Rotation 5 Normal Knee Strength Knee Manual Muscle Testing Right Flexion (S2) 4+ Good+ Extension (L3) 5 Normal Left Flexion (S2) 4+ Good+ Extension (L3) 5 Normal Ankle/Foot Strength Ankle and Foot Manual Muscle Testing Right Dorsiflexion (L4) 4+ Good+ Plantarflexion (S1) 4 Good Left Dorsiflexion (L4) 4+ Good+ Plantarflexion (S1) 4 Good PT-OP-O Vestibular Start: 04/30/19 17:56 Freq: Status: Active Protocol: Document 04/30/19 12:00 DCW (Rec: 05/01/19 09:44 DCW [id number]) Vestibular Assessment Visual Testing Smooth Pursuits Horizontal Questionable saccadic movement when following left Smooth Pursuits Vertical WNL Saccades Horizontal WNL Positional Testing [place]-Hallpike Negative Left,Negative Right Rolling Test Positive Left,Positive Right,> 60 Seconds Comments Vestibular Comments Ageotropic nystagmus with roll test, continued entire time pt was positioned PT-OP-Q Treatments Start: 11/28/18 17:41 Freq: Status: Active Protocol: Document 03/09/20 10:34 DCW (Rec: 03/09/20 11:14 DCW [id number]) Cardio Equipment Recumbent Bicycle Duration (Minutes) 5 Resistance 4->8 Seat Position 3 Gym Equipment Shuttle Recovery Unilateral Squats Resistance #50 Reps/Time 2x10 Bilateral Squats Resistance 87# Reps/Time 2x10 Therapeutic Exercises Other Exercises Resisted Ambulation Other Exercise Name Side-stepping Resistance Green Manual Therapy Treatment Soft Tissue Mobilization Piriformis Body Location R Piriformis Mobilization Type Strumming,Sustained Pressure Intensity/Depth Deep Body Position Sidelying L/S and glutes Body Location B L/S and glutes Mobilization Type Cross-Friction,Myofascial Release,Sustained Pressure Intensity/Depth Moderate Body Position Sidelying PT-OP-R Modalities Start: 11/28/18 17:41 Freq: Status: Active Protocol: Document 03/09/20 10:34 DCW (Rec: 03/09/20 11:14 DCW [id number]) Hot Pack/Cold Pack Treatment Hot Pack Location low back Patient Position Hooklying Treatment Duration (minutes) 10 Patient Tolerance Good PT-OP-T Assessment and Plan Start: 11/28/18 17:41 Freq: Status: Active Protocol: Document 03/09/20 10:34 DCW (Rec: 03/09/20 11:14 DCW [id number]) Physical Therapy Assessment Goals Four Impairment Core and hip weakness Short Term Goal (STG) Pt to demonstrate increased hip abduction bilaterally to 4 +/5 STG Duration 02/06/20 - Improving Nursing Home Goal (LTG) Goal Met:Pt to exhibit core/ TrA MMT 4-/5 Advance to 4+/5 LTG Duration 03/07/20 - Improving Three Impairment Pt has not been able to swim for two years Short Term Goal (STG) cont to progress 10/20 pt has not able to use pool d/ t limited access from coronavirus phase reopening protocol Manager Estate Goal (LTG) Pt to return to community pool independently for exercise with no increased back pain LTG Duration 03/07/20 Two Impairment Pt only able to walk <one square block due to pain Short Term Goal (STG) 10/20 pt stated she is able to amb for 10-15 mins without break Pt to ambulate 1/2 mile with no increased pain STG Duration 02/06/20 - Improving Manager Estate Goal (LTG) Pt to ambulate one mile with no increased pain LTG Duration 03/07/20 One Impairment Pt does not have an appropriate home exercise program Short Term Goal (STG) 8/10 goal met Pt to be independent and compliant with an appropriate HEP STG Duration Met Assessment Summary Assessment Pt doing fairly well today, slightly more fatigued overall . Hopefully pt will feel more energetic with start of infusions for anemia starting today Physical Therapy Plan Frequency and Duration Frequency of Treatment 2x/Week Duration of Treatment 10 weeks Plan of Care Start Date 01/06/20 Plan of Care End Date 03/16/20 Next Visit Focus/Plan Next Note Type Treatment Note Next Visit Plan 2/6MWT cont hip mobility, pelvic tilt flexion based ex. Isolated lumbar movements
--- NOTE | 2020-03-16 11:25 | PT.OTN ---
Current Diagnoses Polyneuropathy, unspecified (03/16/20) Benign paroxysmal vertigo, left ear (03/16/20) Pain in right hip (03/16/20) Pain in left hip (03/16/20) Stiffness of right hip, not elsewhere classified (03/16/20) Stiffness of left hip, not elsewhere classified (03/16/20) Spondylolisthesis, lumbar region (03/16/20) Spondylosis without myelopathy or radiculopathy, lumbosacral region (03/16/20) Other intervertebral disc displacement, lumbar region (03/16/20) Muscle weakness (generalized) (03/16/20) Physical Therapy Treatment Note PT-OP-A Visit Information Start: 11/28/18 17:41 Freq: Status: Active Protocol: Document 03/16/20 10:33 HH (Rec: 03/16/20 11:25 HH [id number]) Out-Patient Physical Therapy Visit Information Visit Information Visit Type Progress Note Visit Start Time 10:34 Visit Stop Time 11:26 Total Visit Minutes 50 Visit Number 60 Number of ELECTRONICS TECHNOLOGY INSTRUCTOR Visits 0 PT-OP-B Current Condition Start: 11/28/18 17:41 Freq: Status: Active Protocol: Document 04/30/19 12:00 DCW (Rec: 04/30/19 17:55 DCW [id number]) Current Condition History of Current Condition Onset Date Two years Current Complaints Worsening back pain History of Current Condition Pt is a 78 year old female presenting with progressive low back pain. Pt notes she has had lumbar issues off and on for 20 years, but that six years ago, she was caring for her life partner, who was going through an illness at the time, and strained her back. It has been bad since then, and specifically worsening over the last two years. Additionally, pt notes that she pulled something on Monday in her left posterior hip, which has been causing even more pain and difficulty in her getting around. Pt notes that if she is sitting or lying down, she doesn't feel too bad, but if she stays in a position too samir, she has a large increase in pain when she tries to get up and move around. Pt feels like she has substantially decreased in her level of activity tolerance and overall fitness level. Pt reports that she tries to walk one block every day, and frequently is unable to do so. Pt also has in the past swam 3x/week, and now has not been to the pool in two years. ADDENDUM 04/30/19: Pt has a new referral for eval/treat of ongoing dizziness. Pt notes that dizziness occurs in episodes lasting seconds, and is brought on by lying back in bed or bending over to harness the dog. 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 The most prominent level of degenerative change is L3-L4, where there is a left lateral recess disc extrusion, with associated moderate to severe central canal narrowing. Moderate to severe bilateral neural foraminal narrowing is also seen at this level. Impression taken from Objective history of pt note from MIRACLE Arriaza on Prior Functional Status Baseline Function- ADL's Independent Baseline Function- Mobility Independent Baseline Function- Gait Walk multiple miles downtown Baseline Function- Recreation/Hobbies Swimming at community pool Current Functional Impairments (Reported) Functional Limitations- Mobility/Gait Pt unable to walk more than one block Functional Limitations- Recreation/ Pt has not gone to pool in [place] past two years. PT-OP-C Subjective Start: 11/28/18 17:41 Freq: Status: Active Protocol: Document 03/16/20 10:33 HH (Rec: 03/16/20 11:25 HH [id number]) OP-PT Subjective Patient Comments Patient Comments My left hip is pretty uncomfortable lately recently but i have a hard time bringing my leg up and sideway . Im doing 2 infusions today. PT-OP-F Manual Assessment Start: 11/28/18 17:41 Freq: Status: Active Protocol: Document 01/06/20 13:45 DCW (Rec: 01/06/20 14:07 DCW [id number]) Manual Assessments Soft Tissue Assessment Soft Tissue Mobility Assessment Moderate tone and tenderness to palpation 2/4:Pain with wincing: bilateral QL, bilateral piriformis PT-OP-K Range of Motion Start: 11/28/18 17:41 Freq: Status: Active Protocol: Document 01/06/20 13:45 DCW (Rec: 01/06/20 14:07 DCW [id number]) Lumbar Spine Range of Motion Lumbar Spine Active Degrees Testing Position Standing Flexion 64 Extension 15 Lateral Flexion Left 60 Lateral Flexion Right 59 ROM Limitations Muscle Weakness,Pain PT-OP-L Special Tests Start: 11/28/18 17:41 Freq: Status: Active Protocol: Document 01/06/20 13:45 DCW (Rec: 01/06/20 14:07 DCW [id number]) Special Tests Lumbar Spine Special Tests Manual Traction Test Results Improves symptoms Compression Test Results Improves symptoms Hip Special Tests Piriformis Test Results B tenderness at Piriformis PARAS Test Results Positive left ipsilateral lateral hip pain PT-OP-M Strength Start: 11/28/18 17:41 Freq: Status: Active Protocol: Document 01/06/20 13:45 DCW (Rec: 01/06/20 14:07 DCW [id number]) Trunk Strength Trunk Manual Muscle Testing Core Stabilization Pt able to properly contract TrA with verbal cues, holds SLR for 10 seconds MMT: 4/5 Hip Strength Hip Manual Muscle Testing Right Flexion (L2) 4+ Good+ Abduction 4 Good Adduction 4 Good External Rotation 5 Normal Internal Rotation 5 Normal Left Flexion (L2) 4 Good Abduction 4 Good Adduction 4 Good External Rotation 5 Normal Internal Rotation 5 Normal Knee Strength Knee Manual Muscle Testing Right Flexion (S2) 4+ Good+ Extension (L3) 5 Normal Left Flexion (S2) 4+ Good+ Extension (L3) 5 Normal Ankle/Foot Strength Ankle and Foot Manual Muscle Testing Right Dorsiflexion (L4) 4+ Good+ Plantarflexion (S1) 4 Good Left Dorsiflexion (L4) 4+ Good+ Plantarflexion (S1) 4 Good PT-OP-O Vestibular Start: 04/30/19 17:56 Freq: Status: Active Protocol: Document 04/30/19 12:00 DCW (Rec: 05/01/19 09:44 DCW [id number]) Vestibular Assessment Visual Testing Smooth Pursuits Horizontal Questionable saccadic movement when following left Smooth Pursuits Vertical WNL Saccades Horizontal WNL Positional Testing Rush-Hallpike Negative Left,Negative Right Rolling Test Positive Left,Positive Right,> 60 Seconds Comments Vestibular Comments Ageotropic nystagmus with roll test, continued entire time pt was positioned PT-OP-Q Treatments Start: 11/28/18 17:41 Freq: Status: Active Protocol: Document 03/16/20 10:33 HH (Rec: 03/16/20 11:25 HH [id number]) Cardio Equipment Recumbent Stepper (Sci-Fit) Duration (Minutes) 6 Resistance 6 Gym Equipment Shuttle Recovery Unilateral Squats Resistance #50 Reps/Time 2x10 Bilateral Squats Resistance 87# Reps/Time 2x10 Therapeutic Exercises Standing Exercises step up Side bilateral Equipment Used R rail Reps/Minutes 10 x 2 Therapeutic Activity Therapeutic Activity STS Reps/Minutes 8 x2 Comments from shuttle recovery PT-OP-R Modalities Start: 11/28/18 17:41 Freq: Status: Active Protocol: Document 03/16/20 10:33 HH (Rec: 03/16/20 11:25 HH [id number]) Hot Pack/Cold Pack Treatment Hot Pack Location low back Patient Position Hooklying Treatment Duration (minutes) 10 Patient Tolerance Good PT-OP-T Assessment and Plan Start: 11/28/18 17:41 Freq: Status: Active Protocol: Document 03/16/20 10:33 HH (Rec: 03/16/20 11:25 HH [id number]) Physical Therapy Assessment Goals stair climbing Impairment pt using R rail for stair climbing Fpc Goal (LTG) pt will be able to improve strength and balance to climb stairs without UE support LTG Duration 10 weeks Four Impairment Core and hip weakness Short Term Goal (STG) Pt to demonstrate increased hip abduction bilaterally to 4 +/5 STG Duration 02/06/20 - Improving Scroll Machine Operator Goal (LTG) Goal Met:Pt to exhibit core/ TrA MMT 4-/5 Advance to 4+/5 LTG Duration 03/07/20 - Improving Three Impairment Pt has not been able to swim for two years Short Term Goal (STG) cont to progress 10/20 pt has not able to use pool d/ t limited access from coronavirus phase reopening protocol Scroll Machine Operator Goal (LTG) Pt to return to community pool independently for exercise with no increased back pain LTG Duration 03/07/20 Two Impairment Pt only able to walk <one square block due to pain Short Term Goal (STG) 10/20 pt stated she is able to amb for 10-15 mins without break Pt to ambulate 1/2 mile with no increased pain STG Duration 02/06/20 - Improving Fpc Goal (LTG) 03/16/19 Pt is currently doing 1500- 2000 steps daily. Pt to ambulate [id number] steps daily to improve her activity tolerance. LTG Duration 12 weeks One Impairment Pt does not have an appropriate home exercise program Short Term Goal (STG) 10/20 goal met Pt to be independent and compliant with an appropriate HEP STG Duration Met Assessment Summary Assessment Pt feels good today and she was able to tolerate well for all therex. Educated pt to achieve [id number] to improve her activity tolerance. Physical Therapy Plan Frequency and Duration Frequency of Treatment 2x/Week Duration of Treatment 10 weeks Plan of Care Start Date 01/06/20 Plan of Care End Date 03/16/20 Next Visit Focus/Plan Next Note Type Treatment Note Next Visit Plan 2/6MWT cont hip mobility, pelvic tilt flexion based ex. Isolated lumbar movements
--- NOTE | 2020-03-24 15:37 | PT.OPPOC ---
Physical, Occupational & Speech Therapy At [facility] Current Diagnoses Polyneuropathy, unspecified (03/24/20) Benign paroxysmal vertigo, left ear (03/24/20) Pain in right hip (03/24/20) Pain in left hip (03/24/20) Stiffness of right hip, not elsewhere classified (03/24/20) Stiffness of left hip, not elsewhere classified (03/24/20) Spondylolisthesis, lumbar region (03/24/20) Spondylosis without myelopathy or radiculopathy, lumbosacral region (03/24/20) Other intervertebral disc displacement, lumbar region (03/24/20) Muscle weakness (generalized) (03/24/20) Visit Care Team Role Provider Type Jorge L Dietz MD Primary Care Provider Physician Specialty: Family Practice Address: [address] [place] [address], [facility] Email: [email or web address] MIRACLE Arriaza Attending Provider Non-Staff Specialty: Family Practice Address: [address] [place] [address], [facility] Email: Plan Of Care PT-OP-T Assessment and Plan Start: 11/28/18 17:41 Freq: Status: Active Protocol: Document 03/24/20 13:47 HH (Rec: 03/24/20 15:36 HH [id number]) Physical Therapy Assessment Goals L hip discomfort Impairment difficulty lifting her L LE in and out of the car Fci Goal (LTG) pt will be able to lift her L LE in and out of the during car transfer LTG Duration 10 weeks stair climbing Impairment pt using R rail for stair climbing Fci Goal (LTG) pt will be able to improve strength and balance to climb stairs without UE support LTG Duration 10 weeks Four Impairment Core and hip weakness Short Term Goal (STG) Pt to demonstrate increased hip abduction bilaterally to 4 +/5 STG Duration 02/06/20 - Improving Fci Goal (LTG) Goal Met:Pt to exhibit core/ TrA MMT 4-/5 Advance to 4+/5 LTG Duration 03/07/20 - Improving Three Impairment Pt has not been able to swim for two years Short Term Goal (STG) cont to progress 10/20 pt has not able to use pool d/ t limited access from coronavirus phase reopening protocol Induction Coordination Power Engineer Goal (LTG) Pt to return to community pool independently for exercise with no increased back pain LTG Duration 03/07/20 Two Impairment Pt only able to walk <one square block due to pain Short Term Goal (STG) 10/20 pt stated she is able to amb for 10-15 mins without break Pt to ambulate 1/2 mile with no increased pain STG Duration 02/06/20 - Improving Induction Coordination Power Engineer Goal (LTG) 03/16/19 Pt is currently doing 1500- 2000 steps daily. Pt to ambulate [id number] steps daily to improve her activity tolerance. LTG Duration 12 weeks One Impairment Pt does not have an appropriate home exercise program Short Term Goal (STG) 10/20 goal met Pt to be independent and compliant with an appropriate HEP STG Duration Met Assessment Summary Assessment Pt has been slowly increasing her activity tolerance by achieving [id number] steps daily. She also reports climbing stairs has been getting easier. Pt will cont benefit from skilled therapy to improve/ maintain activity tolerance, strength since pt is most likely going through dialysis very soon which will significantly affect her energy level. Physical Therapy Plan Frequency and Duration Frequency of Treatment 2x/Week Duration of Treatment 10 weeks Plan of Care Start Date 03/24/20 Plan of Care End Date 06/07/20 Therapeutic Interventions Therapeutic Interventions Aquatic Therapy,Balance Training,Gait Training,Home Exercise Program,Joint Mobilizations,Manual Therapy, Neuromuscular Re-education, Patient/Caregiver Education, Self-Care/Home Management,Soft Tissue Mobilization,Taping, Therapeutic Activities, Therapeutic Exercises Modalities Cold Pack/Ice Massage,Electric Stimulation,Hot Packs, Infrared Therapy,Iontophoresis ,Ultrasound Next Visit Focus/Plan Next Note Type Treatment Note Next Visit Plan 2/6MWT cont hip mobility, pelvic tilt flexion based ex. Isolated lumbar movements Plan of Care Dates Plan of Care Start Date 03/24/20 Plan of Care End Date 06/07/20 Electronically Signed by: Sowmya Bee, PT 03/24/20 1103 Please Sign and Return: I have reviewed this Plan of Care and certify that the skilled therapy services above are required to meet the patient?s needs. Physician Signature Date Printed Name and Credentials Clinical Instructor Signature Printed Name and Credentials
--- NOTE | 2020-03-24 15:37 | PT.OTN ---
Current Diagnoses Polyneuropathy, unspecified (03/24/20) Benign paroxysmal vertigo, left ear (03/24/20) Pain in right hip (03/24/20) Pain in left hip (03/24/20) Stiffness of right hip, not elsewhere classified (03/24/20) Stiffness of left hip, not elsewhere classified (03/24/20) Spondylolisthesis, lumbar region (03/24/20) Spondylosis without myelopathy or radiculopathy, lumbosacral region (03/24/20) Other intervertebral disc displacement, lumbar region (03/24/20) Muscle weakness (generalized) (03/24/20) Physical Therapy Treatment Note PT-OP-A Visit Information Start: 11/28/18 17:41 Freq: Status: Active Protocol: Document 03/24/20 13:47 HH (Rec: 03/24/20 15:36 HH [id number]) Out-Patient Physical Therapy Visit Information Visit Information Visit Type Treatment Note Visit Start Time 13:47 Visit Stop Time 14:38 Total Visit Minutes 51 Visit Number 61 Number of SCRAPER MEAT Visits 0 PT-OP-B Current Condition Start: 11/28/18 17:41 Freq: Status: Active Protocol: Document 04/30/19 12:00 DCW (Rec: 04/30/19 17:55 DCW [id number]) Current Condition History of Current Condition Onset Date Two years Current Complaints Worsening back pain History of Current Condition Pt is a 78 year old female presenting with progressive low back pain. Pt notes she has had lumbar issues off and on for 20 years, but that six years ago, she was caring for her life partner, who was going through an illness at the time, and strained her back. It has been bad since then, and specifically worsening over the last two years. Additionally, pt notes that she pulled something on Monday in her left posterior hip, which has been causing even more pain and difficulty in her getting around. Pt notes that if she is sitting or lying down, she doesn't feel too bad, but if she stays in a position too samir, she has a large increase in pain when she tries to get up and move around. Pt feels like she has substantially decreased in her level of activity tolerance and overall fitness level. Pt reports that she tries to walk one block every day, and frequently is unable to do so. Pt also has in the past swam 3x/week, and now has not been to the pool in two years. ADDENDUM 04/30/19: Pt has a new referral for eval/treat of ongoing dizziness. Pt notes that dizziness occurs in episodes lasting seconds, and is brought on by lying back in bed or bending over to harness the dog. 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 The most prominent level of degenerative change is L3-L4, where there is a left lateral recess disc extrusion, with associated moderate to severe central canal narrowing. Moderate to severe bilateral neural foraminal narrowing is also seen at this level. Impression taken from Objective history of pt note from MIRAC[facility] Arriaza on Prior Functional Status Baseline Function- ADL's Independent Baseline Function- Mobility Independent Baseline Function- Gait Walk multiple miles downtown Baseline Function- Recreation/Hobbies Swimming at community pool Current Functional Impairments (Reported) Functional Limitations- Mobility/Gait Pt unable to walk more than one block Functional Limitations- Recreation/ Pt has not gone to pool in [place] past two years. PT-OP-C Subjective Start: 11/28/18 17:41 Freq: Status: Active Protocol: Document 03/24/20 13:47 HH (Rec: 03/24/20 15:36 HH [id number]) OP-PT Subjective Patient Comments Patient Comments My left hip is still giving trouble especially getting in and out of the truck. My doctors told me that i will have to get dialysis soon. Cassidy been getting my steps around 2000 steps . PT-OP-F Manual Assessment Start: 11/28/18 17:41 Freq: Status: Active Protocol: Document 01/06/20 13:45 DCW (Rec: 01/06/20 14:07 DCW [id number]) Manual Assessments Soft Tissue Assessment Soft Tissue Mobility Assessment Moderate tone and tenderness to palpation 2/4:Pain with wincing: bilateral QL, bilateral piriformis PT-OP-K Range of Motion Start: 11/28/18 17:41 Freq: Status: Active Protocol: Document 01/06/20 13:45 DCW (Rec: 01/06/20 14:07 DCW [id number]) Lumbar Spine Range of Motion Lumbar Spine Active Degrees Testing Position Standing Flexion 64 Extension 15 Lateral Flexion Left 60 Lateral Flexion Right 59 ROM Limitations Muscle Weakness,Pain PT-OP-L Special Tests Start: 11/28/18 17:41 Freq: Status: Active Protocol: Document 01/06/20 13:45 DCW (Rec: 01/06/20 14:07 DCW [id number]) Special Tests Lumbar Spine Special Tests Manual Traction Test Results Improves symptoms Compression Test Results Improves symptoms Hip Special Tests Piriformis Test Results B tenderness at Piriformis PARAS Test Results Positive left ipsilateral lateral hip pain PT-OP-M Strength Start: 11/28/18 17:41 Freq: Status: Active Protocol: Document 01/06/20 13:45 DCW (Rec: 01/06/20 14:07 DCW [id number]) Trunk Strength Trunk Manual Muscle Testing Core Stabilization Pt able to properly contract TrA with verbal cues, holds SLR for 10 seconds MMT: 4/5 Hip Strength Hip Manual Muscle Testing Right Flexion (L2) 4+ Good+ Abduction 4 Good Adduction 4 Good External Rotation 5 Normal Internal Rotation 5 Normal Left Flexion (L2) 4 Good Abduction 4 Good Adduction 4 Good External Rotation 5 Normal Internal Rotation 5 Normal Knee Strength Knee Manual Muscle Testing Right Flexion (S2) 4+ Good+ Extension (L3) 5 Normal Left Flexion (S2) 4+ Good+ Extension (L3) 5 Normal Ankle/Foot Strength Ankle and Foot Manual Muscle Testing Right Dorsiflexion (L4) 4+ Good+ Plantarflexion (S1) 4 Good Left Dorsiflexion (L4) 4+ Good+ Plantarflexion (S1) 4 Good PT-OP-O Vestibular Start: 04/30/19 17:56 Freq: Status: Active Protocol: Document 04/30/19 12:00 DCW (Rec: 05/01/19 09:44 DCW [id number]) Vestibular Assessment Visual Testing Smooth Pursuits Horizontal Questionable saccadic movement when following left Smooth Pursuits Vertical WNL Saccades Horizontal WNL Positional Testing Rush-Hallpike Negative Left,Negative Right Rolling Test Positive Left,Positive Right,> 60 Seconds Comments Vestibular Comments Ageotropic nystagmus with roll test, continued entire time pt was positioned PT-OP-Q Treatments Start: 11/28/18 17:41 Freq: Status: Active Protocol: Document 03/24/20 13:47 HH (Rec: 03/24/20 15:36 HH [id number]) Cardio Equipment Recumbent Stepper (Sci-Fit) Duration (Minutes) 6 Resistance 6 Gym Equipment Shuttle Recovery Unilateral Squats Resistance #50 Reps/Time 2x10 Bilateral Squats Resistance 87# Reps/Time 2x10 Therapeutic Exercises Standing Exercises step up Side bilateral Equipment Used R rail Reps/Minutes 10 x 2 stair tap Reps/Minutes 15 x2 Therapeutic Activity Therapeutic Activity STS Reps/Minutes 8 x2 Comments from shuttle recovery Manual Therapy Treatment Soft Tissue Mobilization hip adductors Mobilization Type Rolling,Sustained Pressure, Trigger Point Release Intensity/Depth Superficial Body Position Supine Comments significant tenderness to light pressure at hip adductors L>R. Improved afterwards PT-OP-R Modalities Start: 11/28/18 17:41 Freq: Status: Active Protocol: Document 03/24/20 13:47 (Rec: 03/24/20 15:36 [id number]) Hot Pack/Cold Pack Treatment Hot Pack Location low back Patient Position Hooklying Treatment Duration (minutes) 10 Patient Tolerance Good PT-OP-T Assessment and Plan Start: 11/28/18 17:41 Freq: Status: Active Protocol: Document 03/24/20 13:47 (Rec: 03/24/20 15:36 [id number]) Physical Therapy Assessment Goals L hip discomfort Impairment difficulty lifting her L LE in and out of the car Group Home Goal (LTG) pt will be able to lift her L LE in and out of the during car transfer LTG Duration 10 weeks stair climbing Impairment pt using R rail for stair climbing Group Home Goal (LTG) pt will be able to improve strength and balance to climb stairs without UE support LTG Duration 10 weeks Four Impairment Core and hip weakness Short Term Goal (STG) Pt to demonstrate increased hip abduction bilaterally to 4 +/5 STG Duration 02/06/20 - Improving Polisher Sand Goal (LTG) Goal Met:Pt to exhibit core/ TrA MMT 4-/5 Advance to 4+/5 LTG Duration 03/07/20 - Improving Three Impairment Pt has not been able to swim for two years Short Term Goal (STG) cont to progress 10/20 pt has not able to use pool d/ t limited access from coronavirus phase reopening protocol Group Home Goal (LTG) Pt to return to community pool independently for exercise with no increased back pain LTG Duration 12/26/20 Two Impairment Pt only able to walk <one square block due to pain Short Term Goal (STG) 10/20 pt stated she is able to amb for 10-15 mins without break Pt to ambulate 1/2 mile with no increased pain STG Duration 02/06/20 - Improving Group Home Goal (LTG) 03/16/19 Pt is currently doing 1500- 2000 steps daily. Pt to ambulate 6824-0252 steps daily to improve her activity tolerance. LTG Duration 12 weeks One Impairment Pt does not have an appropriate home exercise program Short Term Goal (STG) 10/20 goal met Pt to be independent and compliant with an appropriate HEP STG Duration Met Assessment Summary Assessment Pt has been slowly increasing her activity tolerance by achieving 8685-6472 steps daily. She also reports climbing stairs has been getting easier. Pt will cont benefit from skilled therapy to improve/ maintain activity tolerance, strength since pt is most likely going through dialysis very soon which will significantly affect her energy level. Physical Therapy Plan Frequency and Duration Frequency of Treatment 2x/Week Duration of Treatment 10 weeks Plan of Care Start Date 03/24/20 Plan of Care End Date 06/07/20 Therapeutic Interventions Therapeutic Interventions Aquatic Therapy,Balance Training,Gait Training,Home Exercise Program,Joint Mobilizations,Manual Therapy, Neuromuscular Re-education, Patient/Caregiver Education, Self-Care/Home Management,Soft Tissue Mobilization,Taping, Therapeutic Activities, Therapeutic Exercises Modalities Cold Pack/Ice Massage,Electric Stimulation,Hot Packs, Infrared Therapy,Iontophoresis ,Ultrasound Next Visit Focus/Plan Next Note Type Treatment Note Next Visit Plan 2/6MWT cont hip mobility, pelvic tilt flexion based ex. Isolated lumbar movements
--- NOTE | 2020-03-27 11:17 | PT.OTN ---
Current Diagnoses Polyneuropathy, unspecified (03/27/20) Benign paroxysmal vertigo, left ear (03/27/20) Pain in right hip (03/27/20) Pain in left hip (03/27/20) Stiffness of right hip, not elsewhere classified (03/27/20) Stiffness of left hip, not elsewhere classified (03/27/20) Spondylolisthesis, lumbar region (03/27/20) Spondylosis without myelopathy or radiculopathy, lumbosacral region (03/27/20) Other intervertebral disc displacement, lumbar region (03/27/20) Muscle weakness (generalized) (03/27/20) Physical Therapy Treatment Note PT-OP-A Visit Information Start: 11/28/18 17:41 Freq: Status: Active Protocol: Document 03/27/20 10:30 DCW (Rec: 03/27/20 11:16 DCW [id number]) Out-Patient Physical Therapy Visit Information Visit Information Visit Type Treatment Note Visit Start Time 10:30 Visit Stop Time 11:20 Total Visit Minutes 50 Visit Number 62 Number of ANESTHESIOLOGY TECH Visits 0 PT-OP-B Current Condition Start: 11/28/18 17:41 Freq: Status: Active Protocol: Document 04/30/19 12:00 DCW (Rec: 04/30/19 17:55 DCW [id number]) Current Condition History of Current Condition Onset Date Two years Current Complaints Worsening back pain History of Current Condition Pt is a 78 year old female presenting with progressive low back pain. Pt notes she has had lumbar issues off and on for 20 years, but that six years ago, she was caring for her life partner, who was going through an illness at the time, and strained her back. It has been bad since then, and specifically worsening over the last two years. Additionally, pt notes that she pulled something on Monday in her left posterior hip, which has been causing even more pain and difficulty in her getting around. Pt notes that if she is sitting or lying down, she doesn't feel too bad, but if she stays in a position too samir, she has a large increase in pain when she tries to get up and move around. Pt feels like she has substantially decreased in her level of activity tolerance and overall fitness level. Pt reports that she tries to walk one block every day, and frequently is unable to do so. Pt also has in the past swam 3x/week, and now has not been to the pool in two years. ADDENDUM 04/30/19: Pt has a new referral for eval/treat of ongoing dizziness. Pt notes that dizziness occurs in episodes lasting seconds, and is brought on by lying back in bed or bending over to harness the dog. 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 The most prominent level of degenerative change is L3-L4, where there is a left lateral recess disc extrusion, with associated moderate to severe central canal narrowing. Moderate to severe bilateral neural foraminal narrowing is also seen at this level. Impression taken from Objective history of pt note from [facility] on Prior Functional Status Baseline Function- ADL's Independent Baseline Function- Mobility Independent Baseline Function- Gait Walk multiple miles downtown Baseline Function- Recreation/Hobbies Swimming at community pool Current Functional Impairments (Reported) Functional Limitations- Mobility/Gait Pt unable to walk more than one block Functional Limitations- Recreation/ Pt has not gone to pool in [place] past two years. PT-OP-C Subjective Start: 11/28/18 17:41 Freq: Status: Active Protocol: Document 03/27/20 10:30 DCW (Rec: 03/27/20 11:16 DCW [id number]) OP-PT Subjective Patient Comments Patient Comments Pt notes she is having another vascular surgery in her wrist on Monday, hoping to increase blood flow. PT-OP-F Manual Assessment Start: 11/28/18 17:41 Freq: Status: Active Protocol: Document 01/06/20 13:45 DCW (Rec: 01/06/20 14:07 DCW [id number]) Manual Assessments Soft Tissue Assessment Soft Tissue Mobility Assessment Moderate tone and tenderness to palpation 2/4:Pain with wincing: bilateral QL, bilateral piriformis PT-OP-K Range of Motion Start: 11/28/18 17:41 Freq: Status: Active Protocol: Document 01/06/20 13:45 DCW (Rec: 01/06/20 14:07 DCW [id number]) Lumbar Spine Range of Motion Lumbar Spine Active Degrees Testing Position Standing Flexion 64 Extension 15 Lateral Flexion Left 60 Lateral Flexion Right 59 ROM Limitations Muscle Weakness,Pain PT-OP-L Special Tests Start: 11/28/18 17:41 Freq: Status: Active Protocol: Document 01/06/20 13:45 DCW (Rec: 01/06/20 14:07 DCW [id number]) Special Tests Lumbar Spine Special Tests Manual Traction Test Results Improves symptoms Compression Test Results Improves symptoms Hip Special Tests Piriformis Test Results B tenderness at Piriformis PARAS Test Results Positive left ipsilateral lateral hip pain PT-OP-M Strength Start: 11/28/18 17:41 Freq: Status: Active Protocol: Document 01/06/20 13:45 DCW (Rec: 01/06/20 14:07 DCW [id number]) Trunk Strength Trunk Manual Muscle Testing Core Stabilization Pt able to properly contract TrA with verbal cues, holds SLR for 10 seconds MMT: 4/5 Hip Strength Hip Manual Muscle Testing Right Flexion (L2) 4+ Good+ Abduction 4 Good Adduction 4 Good External Rotation 5 Normal Internal Rotation 5 Normal Left Flexion (L2) 4 Good Abduction 4 Good Adduction 4 Good External Rotation 5 Normal Internal Rotation 5 Normal Knee Strength Knee Manual Muscle Testing Right Flexion (S2) 4+ Good+ Extension (L3) 5 Normal Left Flexion (S2) 4+ Good+ Extension (L3) 5 Normal Ankle/Foot Strength Ankle and Foot Manual Muscle Testing Right Dorsiflexion (L4) 4+ Good+ Plantarflexion (S1) 4 Good Left Dorsiflexion (L4) 4+ Good+ Plantarflexion (S1) 4 Good PT-OP-O Vestibular Start: 04/30/19 17:56 Freq: Status: Active Protocol: Document 04/30/19 12:00 DCW (Rec: 05/01/19 09:44 DCW [id number]) Vestibular Assessment Visual Testing Smooth Pursuits Horizontal Questionable saccadic movement when following left Smooth Pursuits Vertical WNL Saccades Horizontal WNL Positional Testing Rush-Hallpike Negative Left,Negative Right Rolling Test Positive Left,Positive Right,> 60 Seconds Comments Vestibular Comments Ageotropic nystagmus with roll test, continued entire time pt was positioned PT-OP-Q Treatments Start: 11/28/18 17:41 Freq: Status: Active Protocol: Document 03/27/20 10:30 DCW (Rec: 03/27/20 11:16 DCW [id number]) Cardio Equipment Recumbent Stepper (Sci-Fit) Duration (Minutes) 6 Resistance 6 Gym Equipment Shuttle Recovery Unilateral Squats Resistance #50 Reps/Time 2x10 Bilateral Squats Resistance 87# Reps/Time x20 Therapeutic Exercises Standing Exercises step up Side bilateral Equipment Used R rail Reps/Minutes 10 x 2 Therapeutic Activity Therapeutic Activity STS Reps/Minutes 8 x2 Comments from shuttle recovery Manual Therapy Treatment Soft Tissue Mobilization Piriformis Body Location R Piriformis Mobilization Type Strumming,Sustained Pressure Intensity/Depth Deep Body Position Sidelying L/S and glutes Body Location B L/S and glutes Mobilization Type Cross-Friction,Myofascial Release,Sustained Pressure Intensity/Depth Moderate Body Position Sidelying PT-OP-R Modalities Start: 11/28/18 17:41 Freq: Status: Active Protocol: Document 03/27/20 10:30 DCW (Rec: 03/27/20 11:16 DCW [id number]) Hot Pack/Cold Pack Treatment Hot Pack Location low back Patient Position Hooklying Treatment Duration (minutes) 10 Patient Tolerance Good PT-OP-T Assessment and Plan Start: 11/28/18 17:41 Freq: Status: Active Protocol: Document 03/27/20 10:30 DCW (Rec: 03/27/20 11:16 DCW [id number]) Physical Therapy Assessment Goals L hip discomfort Impairment difficulty lifting her L LE in and out of the car [employer] Goal (LTG) pt will be able to lift her L LE in and out of the during car transfer LTG Duration 10 weeks stair climbing Impairment pt using R rail for stair climbing [facility] Goal (LTG) pt will be able to improve strength and balance to climb stairs without UE support LTG Duration 10 weeks Four Impairment Core and hip weakness Short Term Goal (STG) Pt to demonstrate increased hip abduction bilaterally to 4 +/5 STG Duration 02/06/20 - Improving Mcfp Goal (LTG) Goal Met:Pt to exhibit core/ TrA MMT 4-/5 Advance to 4+/5 LTG Duration 03/07/20 - Improving Three Impairment Pt has not been able to swim for two years Short Term Goal (STG) cont to progress 10/20 pt has not able to use pool d/ t limited access from coronavirus phase reopening protocol [facility] Goal (LTG) Pt to return to community pool independently for exercise with no increased back pain LTG Duration 03/07/20 Two Impairment Pt only able to walk <one square block due to pain Short Term Goal (STG) 10/20 pt stated she is able to amb for 10-15 mins without break Pt to ambulate 1/2 mile with no increased pain STG Duration 02/06/20 - Improving Mcfp Goal (LTG) 03/16/19 Pt is currently doing 1500- 2000 steps daily. Pt to ambulate 8919-8600 steps daily to improve her activity tolerance. LTG Duration 12 weeks One Impairment Pt does not have an appropriate home exercise program Short Term Goal (STG) 10/20 goal met Pt to be independent and compliant with an appropriate HEP STG Duration Met Assessment Summary Assessment Pt slowly increasing strength with exercises, feels more stable when up moving around, but admits that her function seems to vary a lot day-to-day . Physical Therapy Plan Frequency and Duration Frequency of Treatment 2x/Week Duration of Treatment 10 weeks Plan of Care Start Date 03/24/20 Plan of Care End Date 06/07/20 Therapeutic Interventions Therapeutic Interventions Aquatic Therapy,Balance Training,Gait Training,Home Exercise Program,Joint Mobilizations,Manual Therapy, Neuromuscular Re-education, Patient/Caregiver Education, Self-Care/Home Management,Soft Tissue Mobilization,Taping, Therapeutic Activities, Therapeutic Exercises Modalities Cold Pack/Ice Massage,Electric Stimulation,Hot Packs, Infrared Therapy,Iontophoresis ,Ultrasound Next Visit Focus/Plan Next Note Type Treatment Note Next Visit Plan 2/6MWT cont hip mobility, pelvic tilt flexion based ex. Isolated lumbar movements
--- NOTE | 2020-04-02 11:54 | PT.OTN ---
Current Diagnoses Polyneuropathy, unspecified (04/02/20) Benign paroxysmal vertigo, left ear (04/02/20) Pain in right hip (04/02/20) Pain in left hip (04/02/20) Stiffness of right hip, not elsewhere classified (04/02/20) Stiffness of left hip, not elsewhere classified (04/02/20) Spondylolisthesis, lumbar region (04/02/20) Spondylosis without myelopathy or radiculopathy, lumbosacral region (04/02/20) Other intervertebral disc displacement, lumbar region (04/02/20) Muscle weakness (generalized) (04/02/20) Physical Therapy Treatment Note PT-OP-A Visit Information Start: 11/28/18 17:41 Freq: Status: Active Protocol: Document 04/02/20 11:20 DCW (Rec: 04/02/20 11:53 DCW [id number]) Out-Patient Physical Therapy Visit Information Visit Information Visit Type Treatment Note Visit Start Time 11:20 Visit Stop Time 12:00 Total Visit Minutes 40 Visit Number 63 Number of TAKER OFF BRAKER MACHINE Visits 0 PT-OP-B Current Condition Start: 11/28/18 17:41 Freq: Status: Active Protocol: Document 04/30/19 12:00 DCW (Rec: 04/30/19 17:55 DCW [id number]) Current Condition History of Current Condition Onset Date Two years Current Complaints Worsening back pain History of Current Condition Pt is a 78 year old female presenting with progressive low back pain. Pt notes she has had lumbar issues off and on for 20 years, but that six years ago, she was caring for her life partner, who was going through an illness at the time, and strained her back. It has been bad since then, and specifically worsening over the last two years. Additionally, pt notes that she pulled something on Monday in her left posterior hip, which has been causing even more pain and difficulty in her getting around. Pt notes that if she is sitting or lying down, she doesn't feel too bad, but if she stays in a position too samir, she has a large increase in pain when she tries to get up and move around. Pt feels like she has substantially decreased in her level of activity tolerance and overall fitness level. Pt reports that she tries to walk one block every day, and frequently is unable to do so. Pt also has in the past swam 3x/week, and now has not been to the pool in two years. ADDENDUM 04/30/19: Pt has a new referral for eval/treat of ongoing dizziness. Pt notes that dizziness occurs in episodes lasting seconds, and is brought on by lying back in bed or bending over to harness the dog. 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 The most prominent level of degenerative change is L3-L4, where there is a left lateral recess disc extrusion, with associated moderate to severe central canal narrowing. Moderate to severe bilateral neural foraminal narrowing is also seen at this level. Impression taken from Objective history of pt note from [facility] on Prior Functional Status Baseline Function- ADL's Independent Baseline Function- Mobility Independent Baseline Function- Gait Walk multiple miles downtown Baseline Function- Recreation/Hobbies Swimming at community pool Current Functional Impairments (Reported) Functional Limitations- Mobility/Gait Pt unable to walk more than one block Functional Limitations- Recreation/ Pt has not gone to pool in [place] past two years. PT-OP-C Subjective Start: 11/28/18 17:41 Freq: Status: Active Protocol: Document 04/02/20 11:20 DCW (Rec: 04/02/20 11:53 DCW [id number]) OP-PT Subjective Patient Comments Patient Comments Pt notes her vascular arm surgery went well, she is a little sore, but overall doing well PT-OP-F Manual Assessment Start: 11/28/18 17:41 Freq: Status: Active Protocol: Document 01/06/20 13:45 DCW (Rec: 01/06/20 14:07 DCW [id number]) Manual Assessments Soft Tissue Assessment Soft Tissue Mobility Assessment Moderate tone and tenderness to palpation 2/4:Pain with wincing: bilateral QL, bilateral piriformis PT-OP-K Range of Motion Start: 11/28/18 17:41 Freq: Status: Active Protocol: Document 01/06/20 13:45 DCW (Rec: 01/06/20 14:07 DCW [id number]) Lumbar Spine Range of Motion Lumbar Spine Active Degrees Testing Position Standing Flexion 64 Extension 15 Lateral Flexion Left 60 Lateral Flexion Right 59 ROM Limitations Muscle Weakness,Pain PT-OP-L Special Tests Start: 11/28/18 17:41 Freq: Status: Active Protocol: Document 01/06/20 13:45 DCW (Rec: 01/06/20 14:07 DCW [id number]) Special Tests Lumbar Spine Special Tests Manual Traction Test Results Improves symptoms Compression Test Results Improves symptoms Hip Special Tests Piriformis Test Results B tenderness at Piriformis PARAS Test Results Positive left ipsilateral lateral hip pain PT-OP-M Strength Start: 11/28/18 17:41 Freq: Status: Active Protocol: Document 01/06/20 13:45 DCW (Rec: 01/06/20 14:07 DCW [id number]) Trunk Strength Trunk Manual Muscle Testing Core Stabilization Pt able to properly contract TrA with verbal cues, holds SLR for 10 seconds MMT: 4/5 Hip Strength Hip Manual Muscle Testing Right Flexion (L2) 4+ Good+ Abduction 4 Good Adduction 4 Good External Rotation 5 Normal Internal Rotation 5 Normal Left Flexion (L2) 4 Good Abduction 4 Good Adduction 4 Good External Rotation 5 Normal Internal Rotation 5 Normal Knee Strength Knee Manual Muscle Testing Right Flexion (S2) 4+ Good+ Extension (L3) 5 Normal Left Flexion (S2) 4+ Good+ Extension (L3) 5 Normal Ankle/Foot Strength Ankle and Foot Manual Muscle Testing Right Dorsiflexion (L4) 4+ Good+ Plantarflexion (S1) 4 Good Left Dorsiflexion (L4) 4+ Good+ Plantarflexion (S1) 4 Good PT-OP-O Vestibular Start: 04/30/19 17:56 Freq: Status: Active Protocol: Document 04/30/19 12:00 DCW (Rec: 05/01/19 09:44 DCW [id number]) Vestibular Assessment Visual Testing Smooth Pursuits Horizontal Questionable saccadic movement when following left Smooth Pursuits Vertical WNL Saccades Horizontal WNL Positional Testing Rush-Hallpike Negative Left,Negative Right Rolling Test Positive Left,Positive Right,> 60 Seconds Comments Vestibular Comments Ageotropic nystagmus with roll test, continued entire time pt was positioned PT-OP-Q Treatments Start: 11/28/18 17:41 Freq: Status: Active Protocol: Document 04/02/20 11:20 DCW (Rec: 04/02/20 11:53 DCW [id number]) Cardio Equipment Recumbent Stepper (Sci-Fit) Duration (Minutes) 6 Resistance 6 Gym Equipment Shuttle Recovery Unilateral Squats Resistance #50 Reps/Time 2x10 Bilateral Squats Resistance 87# Reps/Time x20 Manual Therapy Treatment Soft Tissue Mobilization Piriformis Body Location R Piriformis Mobilization Type Strumming,Sustained Pressure Intensity/Depth Deep Body Position Sidelying L/S and glutes Body Location B L/S and glutes Mobilization Type Cross-Friction,Myofascial Release,Sustained Pressure Intensity/Depth Moderate Body Position Sidelying PT-OP-R Modalities Start: 11/28/18 17:41 Freq: Status: Active Protocol: Document 04/02/20 11:20 DCW (Rec: 04/02/20 11:53 DCW [id number]) Hot Pack/Cold Pack Treatment Hot Pack Location low back Patient Position Hooklying Treatment Duration (minutes) 10 Patient Tolerance Good PT-OP-T Assessment and Plan Start: 11/28/18 17:41 Freq: Status: Active Protocol: Document 04/02/20 11:20 DCW (Rec: 04/02/20 11:53 DCW [id number]) Physical Therapy Assessment Goals L hip discomfort Impairment difficulty lifting her L LE in and out of the car Longterm Goal (LTG) pt will be able to lift her L LE in and out of the during car transfer LTG Duration 10 weeks stair climbing Impairment pt using R rail for stair climbing Longterm Goal (LTG) pt will be able to improve strength and balance to climb stairs without UE support LTG Duration 10 weeks Four Impairment Core and hip weakness Short Term Goal (STG) Pt to demonstrate increased hip abduction bilaterally to 4 +/5 STG Duration 02/06/20 - Improving Entry Processor Goal (LTG) Goal Met:Pt to exhibit core/ TrA MMT 4-/5 Advance to 4+/5 LTG Duration 03/07/20 - Improving Three Impairment Pt has not been able to swim for two years Short Term Goal (STG) cont to progress 10/20 pt has not able to use pool d/ [facility] Longterm Goal (LTG) Pt to return to community pool independently for exercise with no increased back pain LTG Duration 03/07/20 Two Impairment Pt only able to walk <one square block due to pain Short Term Goal (STG) 8 pt stated she is able to amb for 10-15 mins without break Pt to ambulate 1/2 mile with no increased pain STG Duration 02/06/20 - Improving Entry Processor Goal (LTG) 03/16/19 Pt is currently doing 1500- 2000 steps daily. Pt to ambulate [id number] steps daily to improve her activity tolerance. LTG Duration 12 weeks One Impairment Pt does not have an appropriate home exercise program Short Term Goal (STG) 10/20 goal met Pt to be independent and compliant with an appropriate HEP STG Duration Met Assessment Summary Assessment Pt struggling more today, very stiff and not moving well. Pt admits she has not done her usual morning exercises today, which may be the reason she is not loosened up. Physical Therapy Plan Frequency and Duration Frequency of Treatment 2x/Week Duration of Treatment 10 weeks Plan of Care Start Date 03/24/20 Plan of Care End Date 06/07/20 Therapeutic Interventions Therapeutic Interventions Aquatic Therapy,Balance Training,Gait Training,Home Exercise Program,Joint Mobilizations,Manual Therapy, Neuromuscular Re-education, Patient/Caregiver Education, Self-Care/Home Management,Soft Tissue Mobilization,Taping, Therapeutic Activities, Therapeutic Exercises Modalities Cold Pack/Ice Massage,Electric Stimulation,Hot Packs, Infrared Therapy,Iontophoresis ,Ultrasound Next Visit Focus/Plan Next Note Type Treatment Note Next Visit Plan 2/6MWT cont hip mobility, pelvic tilt flexion based ex. Isolated lumbar movements
--- NOTE | 2020-04-06 11:11 | PT.OTN ---
Current Diagnoses Polyneuropathy, unspecified (04/06/20) Benign paroxysmal vertigo, left ear (04/06/20) Pain in right hip (04/06/20) Pain in left hip (04/06/20) Stiffness of right hip, not elsewhere classified (04/06/20) Stiffness of left hip, not elsewhere classified (04/06/20) Spondylolisthesis, lumbar region (04/06/20) Spondylosis without myelopathy or radiculopathy, lumbosacral region (04/06/20) Other intervertebral disc displacement, lumbar region (04/06/20) Muscle weakness (generalized) (04/06/20) Physical Therapy Treatment Note PT-OP-A Visit Information Start: 11/28/18 17:41 Freq: Status: Active Protocol: Document 04/06/20 10:35 DCW (Rec: 04/06/20 11:11 DCW [id number]) Out-Patient Physical Therapy Visit Information Visit Information Visit Type Treatment Note Visit Start Time 10:35 Visit Stop Time 11:20 Total Visit Minutes 45 Visit Number 64 Number of WAREHOUSE DIRECTOR Visits 0 PT-OP-B Current Condition Start: 11/28/18 17:41 Freq: Status: Active Protocol: Document 04/30/19 12:00 DCW (Rec: 04/30/19 17:55 DCW [id number]) Current Condition History of Current Condition Onset Date Two years Current Complaints Worsening back pain History of Current Condition Pt is a 78 year old female presenting with progressive low back pain. Pt notes she has had lumbar issues off and on for 20 years, but that six years ago, she was caring for her life partner, who was going through an illness at the time, and strained her back. It has been bad since then, and specifically worsening over the last two years. Additionally, pt notes that she pulled something on Monday in her left posterior hip, which has been causing even more pain and difficulty in her getting around. Pt notes that if she is sitting or lying down, she doesn't feel too bad, but if she stays in a position too samir, she has a large increase in pain when she tries to get up and move around. Pt feels like she has substantially decreased in her level of activity tolerance and overall fitness level. Pt reports that she tries to walk one block every day, and frequently is unable to do so. Pt also has in the past swam 3x/week, and now has not been to the pool in two years. ADDENDUM 04/30/19: Pt has a new referral for eval/treat of ongoing dizziness. Pt notes that dizziness occurs in episodes lasting seconds, and is brought on by lying back in bed or bending over to harness the dog. 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 The most prominent level of degenerative change is L3-L4, where there is a left lateral recess disc extrusion, with associated moderate to severe central canal narrowing. Moderate to severe bilateral neural foraminal narrowing is also seen at this level. Impression taken from Objective history of pt note from [facility] on Prior Functional Status Baseline Function- ADL's Independent Baseline Function- Mobility Independent Baseline Function- Gait Walk multiple miles downtown Baseline Function- Recreation/Hobbies Swimming at community pool Current Functional Impairments (Reported) Functional Limitations- Mobility/Gait Pt unable to walk more than one block Functional Limitations- Recreation/ Pt has not gone to pool in [place] past two years. PT-OP-C Subjective Start: 11/28/18 17:41 Freq: Status: Active Protocol: Document 04/06/20 10:35 DCW (Rec: 04/06/20 11:11 DCW [id number]) OP-PT Subjective Patient Comments Patient Comments I don't know if its the kidney's starting to fair, or what, but everything is an effort today. And my ankles are really sore. I'm so tired of feeling crummy, and I'm tired of talking about feeling crummy. PT-OP-F Manual Assessment Start: 11/28/18 17:41 Freq: Status: Active Protocol: Document 01/06/20 13:45 DCW (Rec: 01/06/20 14:07 DCW [id number]) Manual Assessments Soft Tissue Assessment Soft Tissue Mobility Assessment Moderate tone and tenderness to palpation 2/4:Pain with wincing: bilateral QL, bilateral piriformis PT-OP-K Range of Motion Start: 11/28/18 17:41 Freq: Status: Active Protocol: Document 01/06/20 13:45 DCW (Rec: 01/06/20 14:07 DCW [id number]) Lumbar Spine Range of Motion Lumbar Spine Active Degrees Testing Position Standing Flexion 64 Extension 15 Lateral Flexion Left 60 Lateral Flexion Right 59 ROM Limitations Muscle Weakness,Pain PT-OP-L Special Tests Start: 11/28/18 17:41 Freq: Status: Active Protocol: Document 01/06/20 13:45 DCW (Rec: 01/06/20 14:07 DCW [id number]) Special Tests Lumbar Spine Special Tests Manual Traction Test Results Improves symptoms Compression Test Results Improves symptoms Hip Special Tests Piriformis Test Results B tenderness at Piriformis PARAS Test Results Positive left ipsilateral lateral hip pain PT-OP-M Strength Start: 11/28/18 17:41 Freq: Status: Active Protocol: Document 01/06/20 13:45 DCW (Rec: 01/06/20 14:07 DCW [id number]) Trunk Strength Trunk Manual Muscle Testing Core Stabilization Pt able to properly contract TrA with verbal cues, holds SLR for 10 seconds MMT: 4/5 Hip Strength Hip Manual Muscle Testing Right Flexion (L2) 4+ Good+ Abduction 4 Good Adduction 4 Good External Rotation 5 Normal Internal Rotation 5 Normal Left Flexion (L2) 4 Good Abduction 4 Good Adduction 4 Good External Rotation 5 Normal Internal Rotation 5 Normal Knee Strength Knee Manual Muscle Testing Right Flexion (S2) 4+ Good+ Extension (L3) 5 Normal Left Flexion (S2) 4+ Good+ Extension (L3) 5 Normal Ankle/Foot Strength Ankle and Foot Manual Muscle Testing Right Dorsiflexion (L4) 4+ Good+ Plantarflexion (S1) 4 Good Left Dorsiflexion (L4) 4+ Good+ Plantarflexion (S1) 4 Good PT-OP-O Vestibular Start: 04/30/19 17:56 Freq: Status: Active Protocol: Document 04/30/19 12:00 DCW (Rec: 05/01/19 09:44 DCW [id number]) Vestibular Assessment Visual Testing Smooth Pursuits Horizontal Questionable saccadic movement when following left Smooth Pursuits Vertical WNL Saccades Horizontal WNL Positional Testing Rush-Hallpike Negative Left,Negative Right Rolling Test Positive Left,Positive Right,> 60 Seconds Comments Vestibular Comments Ageotropic nystagmus with roll test, continued entire time pt was positioned PT-OP-Q Treatments Start: 11/28/18 17:41 Freq: Status: Active Protocol: Document 04/06/20 10:35 DCW (Rec: 04/06/20 11:11 DCW [id number]) Cardio Equipment Recumbent Stepper (Sci-Fit) Duration (Minutes) 5 Resistance 5 Gym Equipment Shuttle Recovery Unilateral Squats Resistance #50 Reps/Time 2x10 Bilateral Squats Resistance 87# Reps/Time x20 Manual Therapy Treatment Soft Tissue Mobilization Piriformis Body Location R Piriformis Mobilization Type Strumming,Sustained Pressure Intensity/Depth Deep Body Position Sidelying L/S and glutes Body Location B L/S and glutes Mobilization Type Cross-Friction,Myofascial Release,Sustained Pressure Intensity/Depth Moderate Body Position Sidelying PT-OP-R Modalities Start: 11/28/18 17:41 Freq: Status: Active Protocol: Document 04/06/20 10:35 DCW (Rec: 04/06/20 11:11 DCW [id number]) Hot Pack/Cold Pack Treatment Hot Pack Location low back Patient Position Hooklying Treatment Duration (minutes) 10 Patient Tolerance Good PT-OP-T Assessment and Plan Start: 11/28/18 17:41 Freq: Status: Active Protocol: Document 04/06/20 10:35 DCW (Rec: 04/06/20 11:11 DCW [id number]) Physical Therapy Assessment Goals L hip discomfort Impairment difficulty lifting her L LE in and out of the car Nps Goal (LTG) pt will be able to lift her L LE in and out of the during car transfer LTG Duration 10 weeks stair climbing Impairment pt using R rail for stair climbing Nps Goal (LTG) pt will be able to improve strength and balance to climb stairs without UE support LTG Duration 10 weeks Four Impairment Core and hip weakness Short Term Goal (STG) Pt to demonstrate increased hip abduction bilaterally to 4 +/5 STG Duration 02/06/20 - Improving Nursing Home Goal (LTG) Goal Met:Pt to exhibit core/ TrA MMT 4-/5 Advance to 4+/5 LTG Duration 03/07/20 - Improving Three Impairment Pt has not been able to swim for two years Short Term Goal (STG) cont to progress 10/20 pt has not able to use pool d/ t limited access from coronavirus phase reopening protocol Nursing Home Goal (LTG) Pt to return to community pool independently for exercise with no increased back pain LTG Duration 03/07/20 Two Impairment Pt only able to walk <one square block due to pain Short Term Goal (STG) 10/20 pt stated she is able to amb for 10-15 mins without break Pt to ambulate 1/2 mile with no increased pain STG Duration 02/06/20 - Improving Nursing Home Goal (LTG) 03/16/19 Pt is currently doing 1500- 2000 steps daily. Pt to ambulate [id number] steps daily to improve her activity tolerance. LTG Duration 12 weeks One Impairment Pt does not have an appropriate home exercise program Short Term Goal (STG) 10/20 goal met Pt to be independent and compliant with an appropriate HEP STG Duration Met Assessment Summary Assessment Pt incredibly fatigued today, very limited with participation due to pain and fatigue. Pt instructed to discuss with her PCP during her appt this week. Physical Therapy Plan Frequency and Duration Frequency of Treatment 2x/Week Duration of Treatment 10 weeks Plan of Care Start Date 03/24/20 Plan of Care End Date 06/07/20 Therapeutic Interventions Therapeutic Interventions Aquatic Therapy,Balance Training,Gait Training,Home Exercise Program,Joint Mobilizations,Manual Therapy, Neuromuscular Re-education, Patient/Caregiver Education, Self-Care/Home Management,Soft Tissue Mobilization,Taping, Therapeutic Activities, Therapeutic Exercises Modalities Cold Pack/Ice Massage,Electric Stimulation,Hot Packs, Infrared Therapy,Iontophoresis ,Ultrasound Next Visit Focus/Plan Next Note Type Treatment Note Next Visit Plan 2/6MWT cont hip mobility, pelvic tilt flexion based ex. Isolated lumbar movements
--- NOTE | 2020-04-09 12:04 | PT.OTN ---
Current Diagnoses Polyneuropathy, unspecified (04/09/20) Benign paroxysmal vertigo, left ear (04/09/20) Pain in right hip (04/09/20) Pain in left hip (04/09/20) Stiffness of right hip, not elsewhere classified (04/09/20) Stiffness of left hip, not elsewhere classified (04/09/20) Spondylolisthesis, lumbar region (04/09/20) Spondylosis without myelopathy or radiculopathy, lumbosacral region (04/09/20) Other intervertebral disc displacement, lumbar region (04/09/20) Muscle weakness (generalized) (04/09/20) Physical Therapy Treatment Note PT-OP-A Visit Information Start: 11/28/18 17:41 Freq: Status: Active Protocol: Document 04/09/20 10:41 HH (Rec: 04/09/20 12:03 HH [id number]) Out-Patient Physical Therapy Visit Information Visit Information Visit Type Treatment Note Visit Start Time 10:43 Visit Stop Time 11:25 Total Visit Minutes 42 Visit Number 65 Number of STEREO EQUIPMENT REPAIRER Visits 0 PT-OP-B Current Condition Start: 11/28/18 17:41 Freq: Status: Active Protocol: Document 04/30/19 12:00 DCW (Rec: 04/30/19 17:55 DCW [id number]) Current Condition History of Current Condition Onset Date Two years Current Complaints Worsening back pain History of Current Condition Pt is a 78 year old female presenting with progressive low back pain. Pt notes she has had lumbar issues off and on for 20 years, but that six years ago, she was caring for her life partner, who was going through an illness at the time, and strained her back. It has been bad since then, and specifically worsening over the last two years. Additionally, pt notes that she pulled something on Monday in her left posterior hip, which has been causing even more pain and difficulty in her getting around. Pt notes that if she is sitting or lying down, she doesn't feel too bad, but if she stays in a position too samir, she has a large increase in pain when she tries to get up and move around. Pt feels like she has substantially decreased in her level of activity tolerance and overall fitness level. Pt reports that she tries to walk one block every day, and frequently is unable to do so. Pt also has in the past swam 3x/week, and now has not been to the pool in two years. ADDENDUM 04/30/19: Pt has a new referral for eval/treat of ongoing dizziness. Pt notes that dizziness occurs in episodes lasting seconds, and is brought on by lying back in bed or bending over to harness the dog. 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 The most prominent level of degenerative change is L3-L4, where there is a left lateral recess disc extrusion, with associated moderate to severe central canal narrowing. Moderate to severe bilateral neural foraminal narrowing is also seen at this level. Impression taken from Objective history of pt note from MIRACLE Arriaza on Prior Functional Status Baseline Function- ADL's Independent Baseline Function- Mobility Independent Baseline Function- Gait Walk multiple miles downtown Baseline Function- Recreation/Hobbies Swimming at community pool Current Functional Impairments (Reported) Functional Limitations- Mobility/Gait Pt unable to walk more than one block Functional Limitations- Recreation/ Pt has not gone to pool in [place] past two years. PT-OP-C Subjective Start: 11/28/18 17:41 Freq: Status: Active Protocol: Document 04/09/20 10:41 HH (Rec: 04/09/20 12:03 HH [id number]) OP-PT Subjective Patient Comments Patient Comments Im going to get my blood work done and i might have to re- do the fistula surgery. PT-OP-F Manual Assessment Start: 11/28/18 17:41 Freq: Status: Active Protocol: Document 01/06/20 13:45 DCW (Rec: 01/06/20 14:07 DCW [id number]) Manual Assessments Soft Tissue Assessment Soft Tissue Mobility Assessment Moderate tone and tenderness to palpation 2/4:Pain with wincing: bilateral QL, bilateral piriformis PT-OP-K Range of Motion Start: 11/28/18 17:41 Freq: Status: Active Protocol: Document 01/06/20 13:45 DCW (Rec: 01/06/20 14:07 DCW [id number]) Lumbar Spine Range of Motion Lumbar Spine Active Degrees Testing Position Standing Flexion 64 Extension 15 Lateral Flexion Left 60 Lateral Flexion Right 59 ROM Limitations Muscle Weakness,Pain PT-OP-L Special Tests Start: 11/28/18 17:41 Freq: Status: Active Protocol: Document 01/06/20 13:45 DCW (Rec: 01/06/20 14:07 DCW [id number]) Special Tests Lumbar Spine Special Tests Manual Traction Test Results Improves symptoms Compression Test Results Improves symptoms Hip Special Tests Piriformis Test Results B tenderness at Piriformis PARAS Test Results Positive left ipsilateral lateral hip pain PT-OP-M Strength Start: 11/28/18 17:41 Freq: Status: Active Protocol: Document 01/06/20 13:45 DCW (Rec: 01/06/20 14:07 DCW [id number]) Trunk Strength Trunk Manual Muscle Testing Core Stabilization Pt able to properly contract TrA with verbal cues, holds SLR for 10 seconds MMT: 4/5 Hip Strength Hip Manual Muscle Testing Right Flexion (L2) 4+ Good+ Abduction 4 Good Adduction 4 Good External Rotation 5 Normal Internal Rotation 5 Normal Left Flexion (L2) 4 Good Abduction 4 Good Adduction 4 Good External Rotation 5 Normal Internal Rotation 5 Normal Knee Strength Knee Manual Muscle Testing Right Flexion (S2) 4+ Good+ Extension (L3) 5 Normal Left Flexion (S2) 4+ Good+ Extension (L3) 5 Normal Ankle/Foot Strength Ankle and Foot Manual Muscle Testing Right Dorsiflexion (L4) 4+ Good+ Plantarflexion (S1) 4 Good Left Dorsiflexion (L4) 4+ Good+ Plantarflexion (S1) 4 Good PT-OP-O Vestibular Start: 04/30/19 17:56 Freq: Status: Active Protocol: Document 04/30/19 12:00 DCW (Rec: 05/01/19 09:44 DCW [id number]) Vestibular Assessment Visual Testing Smooth Pursuits Horizontal Questionable saccadic movement when following left Smooth Pursuits Vertical WNL Saccades Horizontal WNL Positional Testing Chardon-Hallpike Negative Left,Negative Right Rolling Test Positive Left,Positive Right,> 60 Seconds Comments Vestibular Comments Ageotropic nystagmus with roll test, continued entire time pt was positioned PT-OP-Q Treatments Start: 11/28/18 17:41 Freq: Status: Active Protocol: Document 04/09/20 10:41 HH (Rec: 04/09/20 12:03 HH [id number]) Cardio Equipment Recumbent Stepper (Sci-Fit) Duration (Minutes) 6 Resistance 5 Gym Equipment Shuttle Recovery Unilateral Squats Resistance #50 Reps/Time 2x10 Bilateral Squats Resistance 87# Reps/Time x20 Manual Therapy Treatment Soft Tissue Mobilization Piriformis Body Location R Piriformis Mobilization Type Strumming,Sustained Pressure Intensity/Depth Deep Body Position Sidelying L/S and glutes Body Location B L/S and glutes Mobilization Type Cross-Friction,Myofascial Release,Sustained Pressure Intensity/Depth Moderate Body Position Sidelying PT-OP-R Modalities Start: 11/28/18 17:41 Freq: Status: Active Protocol: Document 04/09/20 10:41 HH (Rec: 04/09/20 12:03 HH [id number]) Hot Pack/Cold Pack Treatment Hot Pack Location low back Patient Position Hooklying Treatment Duration (minutes) 10 Patient Tolerance Good PT-OP-T Assessment and Plan Start: 11/28/18 17:41 Freq: Status: Active Protocol: Document 04/09/20 10:41 HH (Rec: 04/09/20 12:03 [id number]) Physical Therapy Assessment Goals L hip discomfort Impairment difficulty lifting her L LE in and out of the car Parking Ramp Attendant Goal (LTG) pt will be able to lift her L LE in and out of the during car transfer LTG Duration 10 weeks stair climbing Impairment pt using R rail for stair climbing [facility] Goal (LTG) pt will be able to improve strength and balance to climb stairs without UE support LTG Duration 10 weeks Four Impairment Core and hip weakness Short Term Goal (STG) Pt to demonstrate increased hip abduction bilaterally to 4 +/5 STG Duration 02/06/20 - Improving [facility] Goal (LTG) Goal Met:Pt to exhibit core/ TrA MMT 4-/5 Advance to 4+/5 LTG Duration 03/07/20 - Improving Three Impairment Pt has not been able to swim for two years Short Term Goal (STG) cont to progress 10/20 pt has not able to use pool d/ t limited access from coronavirus phase reopening protocol [facility] Goal (LTG) Pt to return to community pool independently for exercise with no increased back pain LTG Duration 03/07/20 Two Impairment Pt only able to walk <one square block due to pain Short Term Goal (STG) 8 pt stated she is able to amb for 10-15 mins without break Pt to ambulate 1/2 mile with no increased pain STG Duration 02/06/20 - Improving Parking Ramp Attendant Goal (LTG) 03/16/19 Pt is currently doing 1500- 2000 steps daily. Pt to ambulate [id number] steps daily to improve her activity tolerance. LTG Duration 12 weeks One Impairment Pt does not have an appropriate home exercise program Short Term Goal (STG) 10/20 goal met Pt to be independent and compliant with an appropriate HEP STG Duration Met Assessment Summary Assessment Pt appeared to be more SOB today. She is going to have bloodwork done and will f/u with surgeon and complaint inspector next week. Will monitor progress Physical Therapy Plan Frequency and Duration Frequency of Treatment 2x/Week Duration of Treatment 10 weeks Plan of Care Start Date 03/24/20 Plan of Care End Date 06/07/20 Next Visit Focus/Plan Next Note Type Treatment Note Next Visit Plan 2/6MWT cont hip mobility, pelvic tilt flexion based ex. Isolated lumbar movements
--- NOTE | 2020-04-13 11:57 | PT.OTN ---
Current Diagnoses Polyneuropathy, unspecified (04/13/20) Benign paroxysmal vertigo, left ear (04/13/20) Pain in right hip (04/13/20) Pain in left hip (04/13/20) Stiffness of right hip, not elsewhere classified (04/13/20) Stiffness of left hip, not elsewhere classified (04/13/20) Spondylolisthesis, lumbar region (04/13/20) Spondylosis without myelopathy or radiculopathy, lumbosacral region (04/13/20) Other intervertebral disc displacement, lumbar region (04/13/20) Muscle weakness (generalized) (04/13/20) Physical Therapy Treatment Note PT-OP-A Visit Information Start: 11/28/18 17:41 Freq: Status: Active Protocol: Document 04/13/20 11:15 DCW (Rec: 04/13/20 11:57 DCW [id number]) Out-Patient Physical Therapy Visit Information Visit Information Visit Type Treatment Note Visit Start Time 11:15 Visit Stop Time 12:05 Total Visit Minutes 50 Visit Number 66 Number of MEDICAL BILLING CLERK Visits 0 PT-OP-B Current Condition Start: 11/28/18 17:41 Freq: Status: Active Protocol: Document 04/30/19 12:00 DCW (Rec: 04/30/19 17:55 DCW [id number]) Current Condition History of Current Condition Onset Date Two years Current Complaints Worsening back pain History of Current Condition Pt is a 78 year old female presenting with progressive low back pain. Pt notes she has had lumbar issues off and on for 20 years, but that six years ago, she was caring for her life partner, who was going through an illness at the time, and strained her back. It has been bad since then, and specifically worsening over the last two years. Additionally, pt notes that she pulled something on Monday in her left posterior hip, which has been causing even more pain and difficulty in her getting around. Pt notes that if she is sitting or lying down, she doesn't feel too bad, but if she stays in a position too samir, she has a large increase in pain when she tries to get up and move around. Pt feels like she has substantially decreased in her level of activity tolerance and overall fitness level. Pt reports that she tries to walk one block every day, and frequently is unable to do so. Pt also has in the past swam 3x/week, and now has not been to the pool in two years. ADDENDUM 04/30/19: Pt has a new referral for eval/treat of ongoing dizziness. Pt notes that dizziness occurs in episodes lasting seconds, and is brought on by lying back in bed or bending over to harness the dog. 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 The most prominent level of degenerative change is L3-L4, where there is a left lateral recess disc extrusion, with associated moderate to severe central canal narrowing. Moderate to severe bilateral neural foraminal narrowing is also seen at this level. Impression taken from Objective history of pt note from MIRAC[facility] Arriaza on Prior Functional Status Baseline Function- ADL's Independent Baseline Function- Mobility Independent Baseline Function- Gait Walk multiple miles downtown Baseline Function- Recreation/Hobbies Swimming at community pool Current Functional Impairments (Reported) Functional Limitations- Mobility/Gait Pt unable to walk more than one block Functional Limitations- Recreation/ Pt has not gone to pool in [place] past two years. PT-OP-C Subjective Start: 11/28/18 17:41 Freq: Status: Active Protocol: Document 04/13/20 11:15 DCW (Rec: 04/13/20 11:57 DCW [id number]) OP-PT Subjective Patient Comments Patient Comments Everything hurts today. PT-OP-F Manual Assessment Start: 11/28/18 17:41 Freq: Status: Active Protocol: Document 01/06/20 13:45 DCW (Rec: 01/06/20 14:07 DCW [id number]) Manual Assessments Soft Tissue Assessment Soft Tissue Mobility Assessment Moderate tone and tenderness to palpation 2/4:Pain with wincing: bilateral QL, bilateral piriformis PT-OP-K Range of Motion Start: 11/28/18 17:41 Freq: Status: Active Protocol: Document 01/06/20 13:45 DCW (Rec: 01/06/20 14:07 DCW [id number]) Lumbar Spine Range of Motion Lumbar Spine Active Degrees Testing Position Standing Flexion 64 Extension 15 Lateral Flexion Left 60 Lateral Flexion Right 59 ROM Limitations Muscle Weakness,Pain PT-OP-L Special Tests Start: 11/28/18 17:41 Freq: Status: Active Protocol: Document 01/06/20 13:45 DCW (Rec: 01/06/20 14:07 DCW [id number]) Special Tests Lumbar Spine Special Tests Manual Traction Test Results Improves symptoms Compression Test Results Improves symptoms Hip Special Tests Piriformis Test Results B tenderness at Piriformis PARAS Test Results Positive left ipsilateral lateral hip pain PT-OP-M Strength Start: 11/28/18 17:41 Freq: Status: Active Protocol: Document 01/06/20 13:45 DCW (Rec: 01/06/20 14:07 DCW [id number]) Trunk Strength Trunk Manual Muscle Testing Core Stabilization Pt able to properly contract TrA with verbal cues, holds SLR for 10 seconds MMT: 4/5 Hip Strength Hip Manual Muscle Testing Right Flexion (L2) 4+ Good+ Abduction 4 Good Adduction 4 Good External Rotation 5 Normal Internal Rotation 5 Normal Left Flexion (L2) 4 Good Abduction 4 Good Adduction 4 Good External Rotation 5 Normal Internal Rotation 5 Normal Knee Strength Knee Manual Muscle Testing Right Flexion (S2) 4+ Good+ Extension (L3) 5 Normal Left Flexion (S2) 4+ Good+ Extension (L3) 5 Normal Ankle/Foot Strength Ankle and Foot Manual Muscle Testing Right Dorsiflexion (L4) 4+ Good+ Plantarflexion (S1) 4 Good Left Dorsiflexion (L4) 4+ Good+ Plantarflexion (S1) 4 Good PT-OP-O Vestibular Start: 04/30/19 17:56 Freq: Status: Active Protocol: Document 04/30/19 12:00 DCW (Rec: 05/01/19 09:44 DCW [id number]) Vestibular Assessment Visual Testing Smooth Pursuits Horizontal Questionable saccadic movement when following left Smooth Pursuits Vertical WNL Saccades Horizontal WNL Positional Testing Rush-Hallpike Negative Left,Negative Right Rolling Test Positive Left,Positive Right,> 60 Seconds Comments Vestibular Comments Ageotropic nystagmus with roll test, continued entire time pt was positioned PT-OP-Q Treatments Start: 11/28/18 17:41 Freq: Status: Active Protocol: Document 04/13/20 11:15 DCW (Rec: 04/13/20 11:57 DCW [id number]) Cardio Equipment Recumbent Stepper (Sci-Fit) Duration (Minutes) 6 Resistance 5 Gym Equipment Shuttle Recovery Unilateral Squats Resistance #50 R, 37# L Reps/Time 2x10 Bilateral Squats Resistance 87# Reps/Time x20 Therapeutic Exercises Other Exercises Resisted Ambulation Other Exercise Name Side-stepping Resistance Yellow Manual Therapy Treatment Soft Tissue Mobilization Piriformis Body Location R Piriformis Mobilization Type Strumming,Sustained Pressure Intensity/Depth Deep Body Position Sidelying L/S and glutes Body Location B L/S and glutes Mobilization Type Cross-Friction,Myofascial Release,Sustained Pressure Intensity/Depth Moderate Body Position Sidelying PT-OP-R Modalities Start: 11/28/18 17:41 Freq: Status: Active Protocol: Document 04/13/20 11:15 DCW (Rec: 04/13/20 11:57 DCW [id number]) Hot Pack/Cold Pack Treatment Hot Pack Location low back Patient Position Hooklying Treatment Duration (minutes) 10 Patient Tolerance Good PT-OP-T Assessment and Plan Start: 11/28/18 17:41 Freq: Status: Active Protocol: Document 04/13/20 11:15 DCW (Rec: 04/13/20 11:57 DCW [id number]) Physical Therapy Assessment Impairments Impairments Activity Tolerance,Balance, Functional Activities, Functional Mobility,Pain,ROM, Soft Tissue Mobility,Strength, Vestibular Goals L hip discomfort Impairment difficulty lifting her L LE in and out of the car Online Program Coordinator Goal (LTG) pt will be able to lift her L LE in and out of the during car transfer LTG Duration 10 weeks stair climbing Impairment pt using R rail for stair climbing [facility] Goal (LTG) pt will be able to improve strength and balance to climb stairs without UE support LTG Duration 10 weeks Four Impairment Core and hip weakness Short Term Goal (STG) Pt to demonstrate increased hip abduction bilaterally to 4 +/5 STG Duration 02/06/20 - Improving Online Program Coordinator Goal (LTG) Goal Met:Pt to exhibit core/ TrA MMT 4-/5 Advance to 4+/5 LTG Duration 03/07/20 - Improving Three Impairment Pt has not been able to swim for two years Short Term Goal (STG) cont to progress 10/20 pt has not able to use pool d/ t limited access from [facility] phase reopening protocol [facility] Goal (LTG) Pt to return to community pool independently for exercise with no increased back pain LTG Duration 03/07/20 Two Impairment Pt only able to walk <one square block due to pain Short Term Goal (STG) 10/20 pt stated she is able to amb for 10-15 mins without break Pt to ambulate 1/2 mile with no increased pain STG Duration 02/06/20 - Improving [facility]pc Goal (LTG) 03/16/19 Pt is currently doing 1500- 2000 steps daily. Pt to ambulate [id number] steps daily to improve her activity tolerance. LTG Duration 12 weeks One Impairment Pt does not have an appropriate home exercise program Short Term Goal (STG) 10/20 goal met Pt to be independent and compliant with an appropriate HEP STG Duration Met Assessment Summary Assessment Pt struggling significantly today with left hip pain and stiffness, struggling with mobility, even with lifting left leg onto equipment. Physical Therapy Plan Frequency and Duration Frequency of Treatment 2x/Week Duration of Treatment 10 weeks Plan of Care Start Date 03/24/20 Plan of Care End Date 06/07/20 Therapeutic Interventions Therapeutic Interventions Aquatic Therapy,Balance Training,Gait Training,Home Exercise Program,Joint Mobilizations,Manual Therapy, Neuromuscular Re-education, Patient/Caregiver Education, Self-Care/Home Management,Soft Tissue Mobilization,Taping, Therapeutic Activities, Therapeutic Exercises Modalities Cold Pack/Ice Massage,Electric Stimulation,Hot Packs, Infrared Therapy,Iontophoresis ,Ultrasound Next Visit Focus/Plan Next Note Type Treatment Note Next Visit Plan 2/6MWT cont hip mobility, pelvic tilt flexion based ex. Isolated lumbar movements
--- NOTE | 2020-04-17 11:16 | PT.OTN ---
Current Diagnoses Polyneuropathy, unspecified (04/17/20) Benign paroxysmal vertigo, left ear (04/17/20) Pain in right hip (04/17/20) Pain in left hip (04/17/20) Stiffness of right hip, not elsewhere classified (04/17/20) Stiffness of left hip, not elsewhere classified (04/17/20) Spondylolisthesis, lumbar region (04/17/20) Spondylosis without myelopathy or radiculopathy, lumbosacral region (04/17/20) Other intervertebral disc displacement, lumbar region (04/17/20) Muscle weakness (generalized) (04/17/20) Physical Therapy Treatment Note PT-OP-A Visit Information Start: 11/28/18 17:41 Freq: Status: Active Protocol: Document 04/17/20 10:30 DCW (Rec: 04/17/20 11:16 DCW [id number]) Out-Patient Physical Therapy Visit Information Visit Information Visit Type Treatment Note Visit Start Time 10:30 Visit Stop Time 11:20 Total Visit Minutes 50 Visit Number 67 Number of SU[employer] Visits 0 PT-OP-B Current Condition Start: 11/28/18 17:41 Freq: Status: Active Protocol: Document 04/30/19 12:00 DCW (Rec: 04/30/19 17:55 DCW [id number]) Current Condition History of Current Condition Onset Date Two years Current Complaints Worsening back pain History of Current Condition Pt is a 78 year old female presenting with progressive low back pain. Pt notes she has had lumbar issues off and on for 20 years, but that six years ago, she was caring for her life partner, who was going through an illness at the time, and strained her back. It has been bad since then, and specifically worsening over the last two years. Additionally, pt notes that she pulled something on Monday in her left posterior hip, which has been causing even more pain and difficulty in her getting around. Pt notes that if she is sitting or lying down, she doesn't feel too bad, but if she stays in a position too samir, she has a large increase in pain when she tries to get up and move around. Pt feels like she has substantially decreased in her level of activity tolerance and overall fitness level. Pt reports that she tries to walk one block every day, and frequently is unable to do so. Pt also has in the past swam 3x/week, and now has not been to the pool in two years. ADDENDUM 04/30/19: Pt has a new referral for eval/treat of ongoing dizziness. Pt notes that dizziness occurs in episodes lasting seconds, and is brought on by lying back in bed or bending over to harness the dog. 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 The most prominent level of degenerative change is L3-L4, where there is a left lateral recess disc extrusion, with associated moderate to severe central canal narrowing. Moderate to severe bilateral neural foraminal narrowing is also seen at this level. Impression taken from Objective history of pt note from MIRACLE Arriaza on Prior Functional Status Baseline Function- ADL's Independent Baseline Function- Mobility Independent Baseline Function- Gait Walk multiple miles downtown Baseline Function- Recreation/Hobbies Swimming at community pool Current Functional Impairments (Reported) Functional Limitations- Mobility/Gait Pt unable to walk more than one block Functional Limitations- Recreation/ Pt has not gone to pool in [place] past two years. PT-OP-C Subjective Start: 11/28/18 17:41 Freq: Status: Active Protocol: Document 04/17/20 10:30 DCW (Rec: 04/17/20 11:16 DCW [id number]) OP-PT Subjective Patient Comments Patient Comments Pt feeling better today, notes her soreness isn't as bad today. Did then admit that she was at the hospital in [place] and suffered a fall while there. I was just walking, the left foot caught on something, and 'Thunk,' down I went. Notes no lingering pain or bruising following fall. PT-OP-F Manual Assessment Start: 11/28/18 17:41 Freq: Status: Active Protocol: Document 01/06/20 13:45 DCW (Rec: 01/06/20 14:07 DCW [id number]) Manual Assessments Soft Tissue Assessment Soft Tissue Mobility Assessment Moderate tone and tenderness to palpation 2/4:Pain with wincing: bilateral QL, bilateral piriformis PT-OP-K Range of Motion Start: 11/28/18 17:41 Freq: Status: Active Protocol: Document 01/06/20 13:45 DCW (Rec: 01/06/20 14:07 DCW [id number]) Lumbar Spine Range of Motion Lumbar Spine Active Degrees Testing Position Standing Flexion 64 Extension 15 Lateral Flexion Left 60 Lateral Flexion Right 59 ROM Limitations Muscle Weakness,Pain PT-OP-L Special Tests Start: 11/28/18 17:41 Freq: Status: Active Protocol: Document 01/06/20 13:45 DCW (Rec: 01/06/20 14:07 DCW [id number]) Special Tests Lumbar Spine Special Tests Manual Traction Test Results Improves symptoms Compression Test Results Improves symptoms Hip Special Tests Piriformis Test Results B tenderness at Piriformis PARAS Test Results Positive left ipsilateral lateral hip pain PT-OP-M Strength Start: 11/28/18 17:41 Freq: Status: Active Protocol: Document 01/06/20 13:45 DCW (Rec: 01/06/20 14:07 DCW [id number]) Trunk Strength Trunk Manual Muscle Testing Core Stabilization Pt able to properly contract TrA with verbal cues, holds SLR for 10 seconds MMT: 4/5 Hip Strength Hip Manual Muscle Testing Right Flexion (L2) 4+ Good+ Abduction 4 Good Adduction 4 Good External Rotation 5 Normal Internal Rotation 5 Normal Left Flexion (L2) 4 Good Abduction 4 Good Adduction 4 Good External Rotation 5 Normal Internal Rotation 5 Normal Knee Strength Knee Manual Muscle Testing Right Flexion (S2) 4+ Good+ Extension (L3) 5 Normal Left Flexion (S2) 4+ Good+ Extension (L3) 5 Normal Ankle/Foot Strength Ankle and Foot Manual Muscle Testing Right Dorsiflexion (L4) 4+ Good+ Plantarflexion (S1) 4 Good Left Dorsiflexion (L4) 4+ Good+ Plantarflexion (S1) 4 Good PT-OP-O Vestibular Start: 04/30/19 17:56 Freq: Status: Active Protocol: Document 04/30/19 12:00 DCW (Rec: 05/01/19 09:44 DCW [id number]) Vestibular Assessment Visual Testing Smooth Pursuits Horizontal Questionable saccadic movement when following left Smooth Pursuits Vertical WNL Saccades Horizontal WNL Positional Testing [place]-Hallpike Negative Left,Negative Right Rolling Test Positive Left,Positive Right,> 60 Seconds Comments Vestibular Comments Ageotropic nystagmus with roll test, continued entire time pt was positioned PT-OP-Q Treatments Start: 09/18/19 17:41 Freq: Status: Active Protocol: Document 04/17/20 10:30 DCW (Rec: 04/17/20 11:16 DCW [id number]) Cardio Equipment Recumbent Bicycle Duration (Minutes) 6 Resistance 5 Seat Position 4 Gym Equipment Shuttle Recovery Unilateral Squats Resistance 50# Reps/Time 2x10 Bilateral Squats Resistance 87# Reps/Time x20 Therapeutic Exercises Supine Exercises pelvic tilt Side bilateral Reps/Minutes 10 x2 Piriformis stretch Side bilateral Reps/Minutes 6 x2 Other Exercises Resisted Ambulation Other Exercise Name Side-stepping Resistance Yellow Manual Therapy Treatment Soft Tissue Mobilization Piriformis Body Location R Piriformis Mobilization Type Strumming,Sustained Pressure Intensity/Depth Deep Body Position Sidelying L/S and glutes Body Location B L/S and glutes Mobilization Type Cross-Friction,Myofascial Release,Sustained Pressure Intensity/Depth Moderate Body Position Sidelying PT-OP-R Modalities Start: 11/28/18 17:41 Freq: Status: Active Protocol: Document 04/17/20 10:30 DCW (Rec: 04/17/20 11:16 DCW [id number]) Hot Pack/Cold Pack Treatment Hot Pack Location low back Patient Position Hooklying Treatment Duration (minutes) 10 Patient Tolerance Good PT-OP-T Assessment and Plan Start: 11/28/18 17:41 Freq: Status: Active Protocol: Document 04/17/20 10:30 DCW (Rec: 04/17/20 11:16 DCW [id number]) Physical Therapy Assessment Impairments Impairments Activity Tolerance,Balance, Functional Activities, Functional Mobility,Pain,ROM, Soft Tissue Mobility,Strength, Vestibular Goals L hip discomfort Impairment difficulty lifting her L LE in and out of the car Usp Goal (LTG) pt will be able to lift her L LE in and out of the during car transfer LTG Duration 10 weeks stair climbing Impairment pt using R rail for stair climbing Usp Goal (LTG) pt will be able to improve strength and balance to climb stairs without UE support LTG Duration 10 weeks Four Impairment Core and hip weakness Short Term Goal (STG) Pt to demonstrate increased hip abduction bilaterally to 4 +/5 STG Duration 02/06/20 - Improving Camp Dining Room Attendant Goal (LTG) Goal Met:Pt to exhibit core/ TrA MMT 4-/5 Advance to 4+/5 LTG Duration 03/07/20 - Improving Three Impairment Pt has not been able to swim for two years Short Term Goal (STG) cont to progress 10/20 pt has not able to use pool d/ t limited access from coronavirus phase reopening protocol Usp Goal (LTG) Pt to return to community pool independently for exercise with no increased back pain LTG Duration 03/07/20 Two Impairment Pt only able to walk <one square block due to pain Short Term Goal (STG) 10/20 pt stated she is able to amb for 10-15 mins without break Pt to ambulate 1/2 mile with no increased pain STG Duration 02/06/20 - Improving Camp Dining Room Attendant Goal (LTG) 03/16/19 Pt is currently doing 1500- 2000 steps daily. Pt to ambulate [id number] steps daily to improve her activity tolerance. LTG Duration 12 weeks One Impairment Pt does not have an appropriate home exercise program Short Term Goal (STG) 10/20 goal met Pt to be independent and compliant with an appropriate HEP STG Duration Met Assessment Summary Assessment Pt much more mobile today, experiencing less pain with movement. Still having increased tone in right QL, responded well to STM. Physical Therapy Plan Frequency and Duration Frequency of Treatment 2x/Week Duration of Treatment 10 weeks Plan of Care Start Date 03/24/20 Plan of Care End Date 06/07/20 Therapeutic Interventions Therapeutic Interventions Aquatic Therapy,Balance Training,Gait Training,Home Exercise Program,Joint Mobilizations,Manual Therapy, Neuromuscular Re-education, Patient/Caregiver Education, Self-Care/Home Management,Soft Tissue Mobilization,Taping, Therapeutic Activities, Therapeutic Exercises Modalities Cold Pack/Ice Massage,Electric Stimulation,Hot Packs, Infrared Therapy,Iontophoresis ,Ultrasound Next Visit Focus/Plan Next Note Type Treatment Note Next Visit Plan 2/6MWT cont hip mobility, pelvic tilt flexion based ex. Isolated lumbar movements
--- NOTE | 2020-04-20 11:18 | PT.OTN ---
Current Diagnoses Polyneuropathy, unspecified (04/20/20) Benign paroxysmal vertigo, left ear (04/20/20) Pain in right hip (04/20/20) Pain in left hip (04/20/20) Stiffness of right hip, not elsewhere classified (04/20/20) Stiffness of left hip, not elsewhere classified (04/20/20) Spondylolisthesis, lumbar region (04/20/20) Spondylosis without myelopathy or radiculopathy, lumbosacral region (04/20/20) Other intervertebral disc displacement, lumbar region (04/20/20) Muscle weakness (generalized) (04/20/20) Physical Therapy Treatment Note PT-OP-A Visit Information Start: 11/28/18 17:41 Freq: Status: Active Protocol: Document 04/20/20 10:30 DCW (Rec: 04/20/20 11:18 DCW [id number]) Out-Patient Physical Therapy Visit Information Visit Information Visit Type Treatment Note Visit Start Time 10:30 Visit Stop Time 11:20 Total Visit Minutes 50 Visit Number 68 Number of HEAD [employer] Visits 0 PT-OP-B Current Condition Start: 11/28/18 17:41 Freq: Status: Active Protocol: Document 04/30/19 12:00 DCW (Rec: 04/30/19 17:55 DCW [id number]) Current Condition History of Current Condition Onset Date Two years Current Complaints Worsening back pain History of Current Condition Pt is a 78 year old female presenting with progressive low back pain. Pt notes she has had lumbar issues off and on for 20 years, but that six years ago, she was caring for her life partner, who was going through an illness at the time, and strained her back. It has been bad since then, and specifically worsening over the last two years. Additionally, pt notes that she pulled something on Monday in her left posterior hip, which has been causing even more pain and difficulty in her getting around. Pt notes that if she is sitting or lying down, she doesn't feel too bad, but if she stays in a position too samir, she has a large increase in pain when she tries to get up and move around. Pt feels like she has substantially decreased in her level of activity tolerance and overall fitness level. Pt reports that she tries to walk one block every day, and frequently is unable to do so. Pt also has in the past swam 3x/week, and now has not been to the pool in two years. ADDENDUM 04/30/19: Pt has a new referral for eval/treat of ongoing dizziness. Pt notes that dizziness occurs in episodes lasting seconds, and is brought on by lying back in bed or bending over to harness the dog. 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 The most prominent level of degenerative change is L3-L4, where there is a left lateral recess disc extrusion, with associated moderate to severe central canal narrowing. Moderate to severe bilateral neural foraminal narrowing is also seen at this level. Impression taken from Objective history of pt note from [facility] Ar[facility] on Prior Functional Status Baseline Function- ADL's Independent Baseline Function- Mobility Independent Baseline Function- Gait Walk multiple miles downtown Baseline Function- Recreation/Hobbies Swimming at community pool Current Functional Impairments (Reported) Functional Limitations- Mobility/Gait Pt unable to walk more than one block Functional Limitations- Recreation/ Pt has not gone to pool in [place] past two years. PT-OP-C Subjective Start: 11/28/18 17:41 Freq: Status: Active Protocol: Document 04/20/20 10:30 DCW (Rec: 04/20/20 11:18 DCW [id number]) OP-PT Subjective Patient Comments Patient Comments Pt reports she is starting dialysis Monday, will be receiving it three times a week. PT-OP-F Manual Assessment Start: 11/28/18 17:41 Freq: Status: Active Protocol: Document 01/06/20 13:45 DCW (Rec: 01/06/20 14:07 DCW [id number]) Manual Assessments Soft Tissue Assessment Soft Tissue Mobility Assessment Moderate tone and tenderness to palpation 2/4:Pain with wincing: bilateral QL, bilateral piriformis PT-OP-K Range of Motion Start: 11/28/18 17:41 Freq: Status: Active Protocol: Document 01/06/20 13:45 DCW (Rec: 01/06/20 14:07 DCW [id number]) Lumbar Spine Range of Motion Lumbar Spine Active Degrees Testing Position Standing Flexion 64 Extension 15 Lateral Flexion Left 60 Lateral Flexion Right 59 ROM Limitations Muscle Weakness,Pain PT-OP-L Special Tests Start: 11/28/18 17:41 Freq: Status: Active Protocol: Document 01/06/20 13:45 DCW (Rec: 01/06/20 14:07 DCW [id number]) Special Tests Lumbar Spine Special Tests Manual Traction Test Results Improves symptoms Compression Test Results Improves symptoms Hip Special Tests Piriformis Test Results B tenderness at Piriformis PARAS Test Results Positive left ipsilateral lateral hip pain PT-OP-M Strength Start: 11/28/18 17:41 Freq: Status: Active Protocol: Document 01/06/20 13:45 DCW (Rec: 01/06/20 14:07 DCW [id number]) Trunk Strength Trunk Manual Muscle Testing Core Stabilization Pt able to properly contract TrA with verbal cues, holds SLR for 10 seconds MMT: 4/5 Hip Strength Hip Manual Muscle Testing Right Flexion (L2) 4+ Good+ Abduction 4 Good Adduction 4 Good External Rotation 5 Normal Internal Rotation 5 Normal Left Flexion (L2) 4 Good Abduction 4 Good Adduction 4 Good External Rotation 5 Normal Internal Rotation 5 Normal Knee Strength Knee Manual Muscle Testing Right Flexion (S2) 4+ Good+ Extension (L3) 5 Normal Left Flexion (S2) 4+ Good+ Extension (L3) 5 Normal Ankle/Foot Strength Ankle and Foot Manual Muscle Testing Right Dorsiflexion (L4) 4+ Good+ Plantarflexion (S1) 4 Good Left Dorsiflexion (L4) 4+ Good+ Plantarflexion (S1) 4 Good PT-OP-O Vestibular Start: 04/30/19 17:56 Freq: Status: Active Protocol: Document 04/30/19 12:00 DCW (Rec: 05/01/19 09:44 DCW [id number]) Vestibular Assessment Visual Testing Smooth Pursuits Horizontal Questionable saccadic movement when following left Smooth Pursuits Vertical WNL Saccades Horizontal WNL Positional Testing [place]-Hallpike Negative Left,Negative Right Rolling Test Positive Left,Positive Right,> 60 Seconds Comments Vestibular Comments Ageotropic nystagmus with roll test, continued entire time pt was positioned PT-OP-Q Treatments Start: 11/28/18 17:41 Freq: Status: Active Protocol: Document 04/20/20 10:30 DCW (Rec: 04/20/20 11:18 DCW [id number]) Cardio Equipment Recumbent Stepper (Sci-Fit) Duration (Minutes) 6 Resistance 4 Seat Position 10 Gym Equipment Shuttle Recovery Unilateral Squats Resistance 37# Reps/Time 2x10 Bilateral Squats Resistance 75# Reps/Time x20 Manual Therapy Treatment Soft Tissue Mobilization Psoas Body Location L Psoas Mobilization Type Strumming,Sustained Pressure Intensity/Depth Deep Piriformis Body Location R Piriformis Mobilization Type Strumming,Sustained Pressure Intensity/Depth Deep Body Position Sidelying L/S and glutes Body Location B L/S and glutes Mobilization Type Cross-Friction,Myofascial Release,Sustained Pressure Intensity/Depth Moderate Body Position Sidelying PT-OP-R Modalities Start: 11/28/18 17:41 Freq: Status: Active Protocol: Document 04/20/20 10:30 DCW (Rec: 04/20/20 11:18 DCW [id number]) Hot Pack/Cold Pack Treatment Hot Pack Location low back Patient Position Hooklying Treatment Duration (minutes) 10 Patient Tolerance Good PT-OP-T Assessment and Plan Start: 11/28/18 17:41 Freq: Status: Active Protocol: Document 04/20/20 10:30 DCW (Rec: 04/20/20 11:18 DCW [id number]) Physical Therapy Assessment Impairments Impairments Activity Tolerance,Balance, Functional Activities, Functional Mobility,Pain,ROM, Soft Tissue Mobility,Strength, Vestibular Goals L hip discomfort Impairment difficulty lifting her L LE in and out of the car Toxicologist Goal (LTG) pt will be able to lift her L LE in and out of the during car transfer LTG Duration 10 weeks stair climbing Impairment pt using R rail for stair climbing Toxicologist Goal (LTG) pt will be able to improve strength and balance to climb stairs without UE support LTG Duration 10 weeks Four Impairment Core and hip weakness Short Term Goal (STG) Pt to demonstrate increased hip abduction bilaterally to 4 +/5 STG Duration 02/06/20 - Improving Usp Goal (LTG) Goal Met:Pt to exhibit core/ TrA MMT 4-/5 Advance to 4+/5 LTG Duration 03/07/20 - Improving Three Impairment Pt has not been able to swim for two years Short Term Goal (STG) cont to progress 10/20 pt has not able to use pool d/ t limited access from coronavirus phase reopening protocol Toxicologist Goal (LTG) Pt to return to community pool independently for exercise with no increased back pain LTG Duration 03/07/20 Two Impairment Pt only able to walk <one square block due to pain Short Term Goal (STG) 10/20 pt stated she is able to amb for 10-15 mins without break Pt to ambulate 1/2 mile with no increased pain STG Duration 02/06/20 - Improving Toxicologist Goal (LTG) 03/16/19 Pt is currently doing 1500- 2000 steps daily. Pt to ambulate [id number] steps daily to improve her activity tolerance. LTG Duration 12 weeks One Impairment Pt does not have an appropriate home exercise program Short Term Goal (STG) 10/20 goal met Pt to be independent and compliant with an appropriate HEP STG Duration Met Assessment Summary Assessment Pt having increased tone in left psoas today, causing decreased mobility in hip and low back, increased lordosis. Pt responded well to STM, significant decrease in tone, pt noted decreased pain and stiffness. Physical Therapy Plan Frequency and Duration Frequency of Treatment 2x/Week Duration of Treatment 10 weeks Plan of Care Start Date 03/24/20 Plan of Care End Date 06/07/20 Therapeutic Interventions Therapeutic Interventions Aquatic Therapy,Balance Training,Gait Training,Home Exercise Program,Joint Mobilizations,Manual Therapy, Neuromuscular Re-education, Patient/Caregiver Education, Self-Care/Home Management,Soft Tissue Mobilization,Taping, Therapeutic Activities, Therapeutic Exercises Modalities Cold Pack/Ice Massage,Electric Stimulation,Hot Packs, Infrared Therapy,Iontophoresis ,Ultrasound Next Visit Focus/Plan Next Note Type Treatment Note Next Visit Plan 2/6MWT cont hip mobility, pelvic tilt flexion based ex. Isolated lumbar movements
--- NOTE | 2020-04-23 12:08 | PT.OTN ---
Current Diagnoses Polyneuropathy, unspecified (04/23/20) Benign paroxysmal vertigo, left ear (04/23/20) Pain in right hip (04/23/20) Pain in left hip (04/23/20) Stiffness of right hip, not elsewhere classified (04/23/20) Stiffness of left hip, not elsewhere classified (04/23/20) Spondylolisthesis, lumbar region (04/23/20) Spondylosis without myelopathy or radiculopathy, lumbosacral region (04/23/20) Other intervertebral disc displacement, lumbar region (04/23/20) Muscle weakness (generalized) (04/23/20) Physical Therapy Treatment Note PT-OP-A Visit Information Start: 11/28/18 17:41 Freq: Status: Active Protocol: Document 04/23/20 11:16 HH (Rec: 04/23/20 12:08 HH [id number]) Out-Patient Physical Therapy Visit Information Visit Information Visit Type Treatment Note Visit Note pt is 12 mins late Visit Start Time 11:27 Visit Stop Time 12:10 Total Visit Minutes 43 Visit Number 69 Number of BUTADIENE CONVERTER 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 Pt notes she has had lumbar issues off and on for 20 years, but that six years ago, she was caring for her life partner, who was going through an illness at the time, and strained her back. It has been bad since then, and specifically worsening over the last two years. Additionally, pt notes that she pulled something on Monday in her left posterior hip, which has been causing even more pain and difficulty in her getting around. Pt notes that if she is sitting or lying down, she doesn't feel too bad, but if she stays in a position too samir, she has a large increase in pain when she tries to get up and move around. Pt feels like she has substantially decreased in her level of activity tolerance and overall fitness level. Pt reports that she tries to walk one block every day, and frequently is unable to do so. Pt also has in the past swam 3x/week, and now has not been to the pool in two years. ADDENDUM 04/30/19: Pt has a new referral for eval/treat of ongoing dizziness. Pt notes that dizziness occurs in episodes lasting seconds, and is brought on by lying back in bed or bending over to harness the dog. 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 The most prominent level of degenerative change is L3-L4, where there is a left lateral recess disc extrusion, with associated moderate to severe central canal narrowing. Moderate to severe bilateral neural foraminal narrowing is also seen at this level. Impression taken from Objective history of pt note from MIRAC[facility] Arriaza on Prior Functional Status Baseline Function- ADL's Independent Baseline Function- Mobility Independent Baseline Function- Gait Walk multiple miles downtown Baseline Function- Recreation/Hobbies Swimming at community pool Current Functional Impairments (Reported) Functional Limitations- Mobility/Gait Pt unable to walk more than one block Functional Limitations- Recreation/ Pt has not gone to pool in [place] past two years. PT-OP-C Subjective Start: 11/28/18 17:41 Freq: Status: Active Protocol: Document 04/23/20 11:16 HH (Rec: 04/23/20 12:08 HH [id number]) OP-PT Subjective Patient Comments Patient Comments I wasnt able to get dialysis because they accidentally poked my vein so they rescheduled it to this monday. PT-OP-F Manual Assessment Start: 11/28/18 17:41 Freq: Status: Active Protocol: Document 01/06/20 13:45 DCW (Rec: 01/06/20 14:07 DCW [id number]) Manual Assessments Soft Tissue Assessment Soft Tissue Mobility Assessment Moderate tone and tenderness to palpation 2/4:Pain with wincing: bilateral QL, bilateral piriformis PT-OP-K Range of Motion Start: 11/28/18 17:41 Freq: Status: Active Protocol: Document 01/06/20 13:45 DCW (Rec: 01/06/20 14:07 DCW [id number]) Lumbar Spine Range of Motion Lumbar Spine Active Degrees Testing Position Standing Flexion 64 Extension 15 Lateral Flexion Left 60 Lateral Flexion Right 59 ROM Limitations Muscle Weakness,Pain PT-OP-L Special Tests Start: 11/28/18 17:41 Freq: Status: Active Protocol: Document 01/06/20 13:45 DCW (Rec: 01/06/20 14:07 DCW [id number]) Special Tests Lumbar Spine Special Tests Manual Traction Test Results Improves symptoms Compression Test Results Improves symptoms Hip Special Tests Piriformis Test Results B tenderness at Piriformis PARAS Test Results Positive left ipsilateral lateral hip pain PT-OP-M Strength Start: 11/28/18 17:41 Freq: Status: Active Protocol: Document 01/06/20 13:45 DCW (Rec: 01/06/20 14:07 DCW [id number]) Trunk Strength Trunk Manual Muscle Testing Core Stabilization Pt able to properly contract TrA with verbal cues, holds SLR for 10 seconds MMT: 4/5 Hip Strength Hip Manual Muscle Testing Right Flexion (L2) 4+ Good+ Abduction 4 Good Adduction 4 Good External Rotation 5 Normal Internal Rotation 5 Normal Left Flexion (L2) 4 Good Abduction 4 Good Adduction 4 Good External Rotation 5 Normal Internal Rotation 5 Normal Knee Strength Knee Manual Muscle Testing Right Flexion (S2) 4+ Good+ Extension (L3) 5 Normal Left Flexion (S2) 4+ Good+ Extension (L3) 5 Normal Ankle/Foot Strength Ankle and Foot Manual Muscle Testing Right Dorsiflexion (L4) 4+ Good+ Plantarflexion (S1) 4 Good Left Dorsiflexion (L4) 4+ Good+ Plantarflexion (S1) 4 Good PT-OP-O Vestibular Start: 04/30/19 17:56 Freq: Status: Active Protocol: Document 04/30/19 12:00 DCW (Rec: 05/01/19 09:44 DCW [id number]) Vestibular Assessment Visual Testing Smooth Pursuits Horizontal Questionable saccadic movement when following left Smooth Pursuits Vertical WNL Saccades Horizontal WNL Positional Testing Rush-Hallpike Negative Left,Negative Right Rolling Test Positive Left,Positive Right,> 60 Seconds Comments Vestibular Comments Ageotropic nystagmus with roll test, continued entire time pt was positioned PT-OP-Q Treatments Start: 11/28/18 17:41 Freq: Status: Active Protocol: Document 04/23/20 11:16 HH (Rec: 04/23/20 12:08 HH [id number]) Cardio Equipment Recumbent Stepper (Sci-Fit) Duration (Minutes) 6 Resistance 4 Seat Position 10 Gym Equipment Shuttle Recovery Unilateral Squats Resistance 37# Reps/Time 2x10 Bilateral Squats Resistance 75# Reps/Time x20 Manual Therapy Treatment Soft Tissue Mobilization Psoas Body Location L Psoas Mobilization Type Strumming,Sustained Pressure Intensity/Depth Deep L/S and glutes Body Location B L/S and glutes Mobilization Type Cross-Friction,Myofascial Release,Sustained Pressure Intensity/Depth Moderate Body Position Sidelying PT-OP-R Modalities Start: 11/28/18 17:41 Freq: Status: Active Protocol: Document 04/23/20 11:16 HH (Rec: 04/23/20 12:08 HH [id number]) Hot Pack/Cold Pack Treatment Hot Pack Location low back Patient Position Hooklying Treatment Duration (minutes) 10 Patient Tolerance Good PT-OP-T Assessment and Plan Start: 11/28/18 17:41 Freq: Status: Active Protocol: Document 04/23/20 11:16 HH (Rec: 04/23/20 12:08 HH [id number]) Physical Therapy Assessment Goals L hip discomfort Impairment difficulty lifting her L LE in and out of the car Senior Living Goal (LTG) pt will be able to lift her L LE in and out of the during car transfer LTG Duration 10 weeks stair climbing Impairment pt using R rail for stair climbing Senior Living Goal (LTG) pt will be able to improve strength and balance to climb stairs without UE support LTG Duration 10 weeks Four Impairment Core and hip weakness Short Term Goal (STG) Pt to demonstrate increased hip abduction bilaterally to 4 +/5 STG Duration 02/06/20 - Improving Glycerin Supervisor Goal (LTG) Goal Met:Pt to exhibit core/ TrA MMT 4-/5 Advance to 4+/5 LTG Duration 03/07/20 - Improving Three Impairment Pt has not been able to swim for two years Short Term Goal (STG) cont to progress 10/20 pt has not able to use pool d/ t limited access from coronavirus phase reopening protocol Glycerin Supervisor Goal (LTG) Pt to return to community pool independently for exercise with no increased back pain LTG Duration 03/07/20 Two Impairment Pt only able to walk <one square block due to pain Short Term Goal (STG) 10/20 pt stated she is able to amb for 10-15 mins without break Pt to ambulate 1/2 mile with no increased pain STG Duration 02/06/20 - Improving Glycerin Supervisor Goal (LTG) 03/16/19 Pt is currently doing 1500- 2000 steps daily. Pt to ambulate [id number] steps daily to improve her activity tolerance. LTG Duration 12 weeks One Impairment Pt does not have an appropriate home exercise program Short Term Goal (STG) 10/20 goal met Pt to be independent and compliant with an appropriate HEP STG Duration Met Assessment Summary Assessment Pt cont to have increased tone in L psoas and is very sensitive to pressure. She did well on leg press today. Physical Therapy Plan Frequency and Duration Frequency of Treatment 2x/Week Duration of Treatment 10 weeks Plan of Care Start Date 03/24/20 Plan of Care End Date 06/07/20 Next Visit Focus/Plan Next Note Type Treatment Note Next Visit Plan 2/6MWT cont hip mobility, pelvic tilt flexion based ex. Isolated lumbar movements
--- NOTE | 2020-04-27 12:50 | PT.OTN ---
Current Diagnoses Polyneuropathy, unspecified (04/27/20) Benign paroxysmal vertigo, left ear (04/27/20) Pain in right hip (04/27/20) Pain in left hip (04/27/20) Stiffness of right hip, not elsewhere classified (04/27/20) Stiffness of left hip, not elsewhere classified (04/27/20) Spondylolisthesis, lumbar region (04/27/20) Spondylosis without myelopathy or radiculopathy, lumbosacral region (04/27/20) Other intervertebral disc displacement, lumbar region (04/27/20) Muscle weakness (generalized) (04/27/20) Physical Therapy Treatment Note PT-OP-A Visit Information Start: 11/28/18 17:41 Freq: Status: Active Protocol: Document 04/27/20 12:00 DCW (Rec: 04/27/20 12:50 DCW [id number]) Out-Patient Physical Therapy Visit Information Visit Information Visit Type Treatment Note Visit Start Time 12:00 Visit Stop Time 12:45 Total Visit Minutes 45 Visit Number 70 Number of [employer] SOCIAL MEDIA MANAGER Visits 0 PT-OP-B Current Condition Start: 11/28/18 17:41 Freq: Status: Active Protocol: Document 04/30/19 12:00 DCW (Rec: 04/30/19 17:55 DCW [id number]) Current Condition History of Current Condition Onset Date Two years Current Complaints Worsening back pain History of Current Condition Pt is a 78 year old female presenting with progressive low back pain. Pt notes she has had lumbar issues off and on for 20 years, but that six years ago, she was caring for her life partner, who was going through an illness at the time, and strained her back. It has been bad since then, and specifically worsening over the last two years. Additionally, pt notes that she pulled something on Monday in her left posterior hip, which has been causing even more pain and difficulty in her getting around. Pt notes that if she is sitting or lying down, she doesn't feel too bad, but if she stays in a position too samir, she has a large increase in pain when she tries to get up and move around. Pt feels like she has substantially decreased in her level of activity tolerance and overall fitness level. Pt reports that she tries to walk one block every day, and frequently is unable to do so. Pt also has in the past swam 3x/week, and now has not been to the pool in two years. ADDENDUM 04/30/19: Pt has a new referral for eval/treat of ongoing dizziness. Pt notes that dizziness occurs in episodes lasting seconds, and is brought on by lying back in bed or bending over to harness the dog. 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 The most prominent level of degenerative change is L3-L4, where there is a left lateral recess disc extrusion, with associated moderate to severe central canal narrowing. Moderate to severe bilateral neural foraminal narrowing is also seen at this level. Impression taken from Objective history of pt note from [facility] Arriaza on Prior Functional Status Baseline Function- ADL's Independent Baseline Function- Mobility Independent Baseline Function- Gait Walk multiple miles downtown Baseline Function- Recreation/Hobbies Swimming at community pool Current Functional Impairments (Reported) Functional Limitations- Mobility/Gait Pt unable to walk more than one block Functional Limitations- Recreation/ Pt has not gone to pool in [place] past two years. PT-OP-C Subjective Start: 11/28/18 17:41 Freq: Status: Active Protocol: Document 04/27/20 12:00 DCW (Rec: 04/27/20 12:50 DCW [id number]) OP-PT Subjective Patient Comments Patient Comments I didn't do anything this weekend, I felt like a slug. Pt admits she felt great Monday after her dialysis Monday, but she is very tired today. PT-OP-F Manual Assessment Start: 11/28/18 17:41 Freq: Status: Active Protocol: Document 01/06/20 13:45 DCW (Rec: 01/06/20 14:07 DCW [id number]) Manual Assessments Soft Tissue Assessment Soft Tissue Mobility Assessment Moderate tone and tenderness to palpation 2/4:Pain with wincing: bilateral QL, bilateral piriformis PT-OP-K Range of Motion Start: 11/28/18 17:41 Freq: Status: Active Protocol: Document 01/06/20 13:45 DCW (Rec: 01/06/20 14:07 DCW [id number]) Lumbar Spine Range of Motion Lumbar Spine Active Degrees Testing Position Standing Flexion 64 Extension 15 Lateral Flexion Left 60 Lateral Flexion Right 59 ROM Limitations Muscle Weakness,Pain PT-OP-L Special Tests Start: 11/28/18 17:41 Freq: Status: Active Protocol: Document 01/06/20 13:45 DCW (Rec: 01/06/20 14:07 DCW [id number]) Special Tests Lumbar Spine Special Tests Manual Traction Test Results Improves symptoms Compression Test Results Improves symptoms Hip Special Tests Piriformis Test Results B tenderness at Piriformis PARAS Test Results Positive left ipsilateral lateral hip pain PT-OP-M Strength Start: 11/28/18 17:41 Freq: Status: Active Protocol: Document 01/06/20 13:45 DCW (Rec: 01/06/20 14:07 DCW [id number]) Trunk Strength Trunk Manual Muscle Testing Core Stabilization Pt able to properly contract TrA with verbal cues, holds SLR for 10 seconds MMT: 4/5 Hip Strength Hip Manual Muscle Testing Right Flexion (L2) 4+ Good+ Abduction 4 Good Adduction 4 Good External Rotation 5 Normal Internal Rotation 5 Normal Left Flexion (L2) 4 Good Abduction 4 Good Adduction 4 Good External Rotation 5 Normal Internal Rotation 5 Normal Knee Strength Knee Manual Muscle Testing Right Flexion (S2) 4+ Good+ Extension (L3) 5 Normal Left Flexion (S2) 4+ Good+ Extension (L3) 5 Normal Ankle/Foot Strength Ankle and Foot Manual Muscle Testing Right Dorsiflexion (L4) 4+ Good+ Plantarflexion (S1) 4 Good Left Dorsiflexion (L4) 4+ Good+ Plantarflexion (S1) 4 Good PT-OP-O Vestibular Start: 04/30/19 17:56 Freq: Status: Active Protocol: Document 04/30/19 12:00 DCW (Rec: 05/01/19 09:44 DCW [id number]) Vestibular Assessment Visual Testing Smooth Pursuits Horizontal Questionable saccadic movement when following left Smooth Pursuits Vertical WNL Saccades Horizontal WNL Positional Testing Rush-Hallpike Negative Left,Negative Right Rolling Test Positive Left,Positive Right,> 60 Seconds Comments Vestibular Comments Ageotropic nystagmus with roll test, continued entire time pt was positioned PT-OP-Q Treatments Start: 11/28/18 17:41 Freq: Status: Active Protocol: Document 04/27/20 12:00 DCW (Rec: 04/27/20 12:50 DCW [id number]) Cardio Equipment Recumbent Stepper (Sci-Fit) Duration (Minutes) 6 Resistance 5 Seat Position 10 Gym Equipment Shuttle Recovery Unilateral Squats Resistance 37# Reps/Time 2x10 Bilateral Squats Resistance 75# Reps/Time x20 Therapeutic Exercises Standing Exercises stair tap Standing Exercise Name Toe-taps Side bilateral Resistance 2# Equipment Used 6 step Reps/Minutes 15 x2 Other Exercises Resisted Ambulation Other Exercise Name Side-stepping Resistance Yellow Manual Therapy Treatment Soft Tissue Mobilization Psoas Body Location L Psoas Mobilization Type Strumming,Sustained Pressure Intensity/Depth Deep Piriformis Body Location R Piriformis Mobilization Type Strumming,Sustained Pressure Intensity/Depth Deep Body Position Sidelying L/S and glutes Body Location B L/S and glutes Mobilization Type Cross-Friction,Myofascial Release,Sustained Pressure Intensity/Depth Moderate Body Position Sidelying PT-OP-R Modalities Start: 11/28/18 17:41 Freq: Status: Active Protocol: Document 04/27/20 12:00 DCW (Rec: 04/27/20 12:50 DCW [id number]) Hot Pack/Cold Pack Treatment Hot Pack Location low back Patient Position Hooklying Treatment Duration (minutes) 10 Patient Tolerance Good PT-OP-T Assessment and Plan Start: 11/28/18 17:41 Freq: Status: Active Protocol: Document 04/27/20 12:00 DCW (Rec: 04/27/20 12:50 DCW [id number]) Physical Therapy Assessment Impairments Impairments Activity Tolerance,Balance, Functional Activities, Functional Mobility,Pain,ROM, Soft Tissue Mobility,Strength, Vestibular Goals L hip discomfort Impairment difficulty lifting her L LE in and out of the car Detention Goal (LTG) pt will be able to lift her L LE in and out of the during car transfer LTG Duration 10 weeks stair climbing Impairment pt using R rail for stair climbing Detention Goal (LTG) pt will be able to improve strength and balance to climb stairs without UE support LTG Duration 10 weeks Four Impairment Core and hip weakness Short Term Goal (STG) Pt to demonstrate increased hip abduction bilaterally to 4 +/5 STG Duration 02/06/20 - Improving Detention Goal (LTG) Goal Met:Pt to exhibit core/ TrA MMT 4-/5 Advance to 4+/5 LTG Duration 03/07/20 - Improving Three Impairment Pt has not been able to swim for two years Short Term Goal (STG) cont to progress 10/20 pt has not able to use pool d/ t limited access from coronavirus phase reopening protocol Check Out Cashier Goal (LTG) Pt to return to community pool independently for exercise with no increased back pain LTG Duration 03/07/20 Two Impairment Pt only able to walk <one square block due to pain Short Term Goal (STG) 10/20 pt stated she is able to amb for 10-15 mins without break Pt to ambulate 1/2 mile with no increased pain STG Duration 02/06/20 - Improving Check Out Cashier Goal (LTG) 03/16/19 Pt is currently doing 1500- 2000 steps daily. Pt to ambulate [phone] steps daily to improve her activity tolerance. LTG Duration 12 weeks One Impairment Pt does not have an appropriate home exercise program Short Term Goal (STG) 10/20 goal met Pt to be independent and compliant with an appropriate HEP STG Duration Met Assessment Summary Assessment Psoas better today, still photographer to palpation, but tone has decreased since last week. Physical Therapy Plan Frequency and Duration Frequency of Treatment 2x/Week Duration of Treatment 10 weeks Plan of Care Start Date 03/24/20 Plan of Care End Date 06/07/20 Therapeutic Interventions Therapeutic Interventions Aquatic Therapy,Balance Training,Gait Training,Home Exercise Program,Joint Mobilizations,Manual Therapy, Neuromuscular Re-education, Patient/Caregiver Education, Self-Care/Home Management,Soft Tissue Mobilization,Taping, Therapeutic Activities, Therapeutic Exercises Modalities Cold Pack/Ice Massage,Electric Stimulation,Hot Packs, Infrared Therapy,Iontophoresis ,Ultrasound Next Visit Focus/Plan Next Note Type Treatment Note Next Visit Plan 2/6MWT cont hip mobility, pelvic tilt flexion based ex. Isolated lumbar movements
--- NOTE | 2020-04-30 11:54 | PT.OTN ---
Current Diagnoses Polyneuropathy, unspecified (04/30/20) Benign paroxysmal vertigo, left ear (04/30/20) Pain in right hip (04/30/20) Pain in left hip (04/30/20) Stiffness of right hip, not elsewhere classified (04/30/20) Stiffness of left hip, not elsewhere classified (04/30/20) Spondylolisthesis, lumbar region (04/30/20) Spondylosis without myelopathy or radiculopathy, lumbosacral region (04/30/20) Other intervertebral disc displacement, lumbar region (04/30/20) Muscle weakness (generalized) (04/30/20) Physical Therapy Treatment Note PT-OP-A Visit Information Start: 11/28/18 17:41 Freq: Status: Active Protocol: Document 04/30/20 11:15 DCW (Rec: 04/30/20 11:54 DCW [id number]) Out-Patient Physical Therapy Visit Information Visit Information Visit Type Treatment Note Visit Start Time 11:15 Visit Stop Time 12:00 Total Visit Minutes 45 Visit Number 71 Number of FILTERS ASSEMBLER Visits 0 PT-OP-B Current Condition Start: 11/28/18 17:41 Freq: Status: Active Protocol: Document 04/30/19 12:00 DCW (Rec: 04/30/19 17:55 DCW [id number]) Current Condition History of Current Condition Onset Date Two years Current Complaints Worsening back pain History of Current Condition Pt is a 78 year old female presenting with progressive low back pain. Pt notes she has had lumbar issues off and on for 20 years, but that six years ago, she was caring for her life partner, who was going through an illness at the time, and strained her back. It has been bad since then, and specifically worsening over the last two years. Additionally, pt notes that she pulled something on Monday in her left posterior hip, which has been causing even more pain and difficulty in her getting around. Pt notes that if she is sitting or lying down, she doesn't feel too bad, but if she stays in a position too samir, she has a large increase in pain when she tries to get up and move around. Pt feels like she has substantially decreased in her level of activity tolerance and overall fitness level. Pt reports that she tries to walk one block every day, and frequently is unable to do so. Pt also has in the past swam 3x/week, and now has not been to the pool in two years. ADDENDUM 04/30/19: Pt has a new referral for eval/treat of ongoing dizziness. Pt notes that dizziness occurs in episodes lasting seconds, and is brought on by lying back in bed or bending over to harness the dog. 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 The most prominent level of degenerative change is L3-L4, where there is a left lateral recess disc extrusion, with associated moderate to severe central canal narrowing. Moderate to severe bilateral neural foraminal narrowing is also seen at this level. Impression taken from Objective history of pt note from MIRAC[facility] Arriaza on Prior Functional Status Baseline Function- ADL's Independent Baseline Function- Mobility Independent Baseline Function- Gait Walk multiple miles downtown Baseline Function- Recreation/Hobbies Swimming at community pool Current Functional Impairments (Reported) Functional Limitations- Mobility/Gait Pt unable to walk more than one block Functional Limitations- Recreation/ Pt has not gone to pool in [place] past two years. PT-OP-C Subjective Start: 11/28/18 17:41 Freq: Status: Active Protocol: Document 04/30/20 11:15 DCW (Rec: 04/30/20 11:54 DCW [id number]) OP-PT Subjective Patient Comments Patient Comments I had dialysis yesterday, and I felt like warmed-over crud last night, but today I actually feel pretty good. PT-OP-F Manual Assessment Start: 11/28/18 17:41 Freq: Status: Active Protocol: Document 01/06/20 13:45 DCW (Rec: 01/06/20 14:07 DCW [id number]) Manual Assessments Soft Tissue Assessment Soft Tissue Mobility Assessment Moderate tone and tenderness to palpation 2/4:Pain with wincing: bilateral QL, bilateral piriformis PT-OP-K Range of Motion Start: 11/28/18 17:41 Freq: Status: Active Protocol: Document 01/06/20 13:45 DCW (Rec: 01/06/20 14:07 DCW [id number]) Lumbar Spine Range of Motion Lumbar Spine Active Degrees Testing Position Standing Flexion 64 Extension 15 Lateral Flexion Left 60 Lateral Flexion Right 59 ROM Limitations Muscle Weakness,Pain PT-OP-L Special Tests Start: 11/28/18 17:41 Freq: Status: Active Protocol: Document 01/06/20 13:45 DCW (Rec: 01/06/20 14:07 DCW [id number]) Special Tests Lumbar Spine Special Tests Manual Traction Test Results Improves symptoms Compression Test Results Improves symptoms Hip Special Tests Piriformis Test Results B tenderness at Piriformis PARAS Test Results Positive left ipsilateral lateral hip pain PT-OP-M Strength Start: 11/28/18 17:41 Freq: Status: Active Protocol: Document 01/06/20 13:45 DCW (Rec: 01/06/20 14:07 DCW [id number]) Trunk Strength Trunk Manual Muscle Testing Core Stabilization Pt able to properly contract TrA with verbal cues, holds SLR for 10 seconds MMT: 4/5 Hip Strength Hip Manual Muscle Testing Right Flexion (L2) 4+ Good+ Abduction 4 Good Adduction 4 Good External Rotation 5 Normal Internal Rotation 5 Normal Left Flexion (L2) 4 Good Abduction 4 Good Adduction 4 Good External Rotation 5 Normal Internal Rotation 5 Normal Knee Strength Knee Manual Muscle Testing Right Flexion (S2) 4+ Good+ Extension (L3) 5 Normal Left Flexion (S2) 4+ Good+ Extension (L3) 5 Normal Ankle/Foot Strength Ankle and Foot Manual Muscle Testing Right Dorsiflexion (L4) 4+ Good+ Plantarflexion (S1) 4 Good Left Dorsiflexion (L4) 4+ Good+ Plantarflexion (S1) 4 Good PT-OP-O Vestibular Start: 04/30/19 17:56 Freq: Status: Active Protocol: Document 04/30/19 12:00 DCW (Rec: 05/01/19 09:44 DCW [id number]) Vestibular Assessment Visual Testing Smooth Pursuits Horizontal Questionable saccadic movement when following left Smooth Pursuits Vertical WNL Saccades Horizontal WNL Positional Testing Rush-Hallpike Negative Left,Negative Right Rolling Test Positive Left,Positive Right,> 60 Seconds Comments Vestibular Comments Ageotropic nystagmus with roll test, continued entire time pt was positioned PT-OP-Q Treatments Start: 11/28/18 17:41 Freq: Status: Active Protocol: Document 04/30/20 11:15 DCW (Rec: 04/30/20 11:54 DCW [id number]) Cardio Equipment Recumbent Elliptical ([employer]) Duration (Minutes) 6 Resistance 5 Seat Position 7 Gym Equipment Shuttle Recovery Unilateral Squats Resistance 37# Reps/Time 2x10 Bilateral Squats Resistance 75# Reps/Time x20 Therapeutic Exercises Other Exercises Resisted Ambulation Other Exercise Name Side-stepping Resistance Green sit to stand Other Exercise Name sit to stand Reps/Minutes 8 x2 Comments with hip hinge Manual Therapy Treatment Soft Tissue Mobilization Piriformis Body Location R Piriformis Mobilization Type Strumming,Sustained Pressure Intensity/Depth Deep Body Position Sidelying L/S and glutes Body Location B L/S and glutes Mobilization Type Cross-Friction,Myofascial Release,Sustained Pressure Intensity/Depth Moderate Body Position Sidelying PT-OP-R Modalities Start: 11/28/18 17:41 Freq: Status: Active Protocol: Document 04/30/20 11:15 DCW (Rec: 04/30/20 11:54 DCW [id number]) Hot Pack/Cold Pack Treatment Hot Pack Location low back Patient Position Hooklying Treatment Duration (minutes) 10 Patient Tolerance Good PT-OP-T Assessment and Plan Start: 11/28/18 17:41 Freq: Status: Active Protocol: Document 04/30/20 11:15 DCW (Rec: 04/30/20 11:54 DCW [id number]) Physical Therapy Assessment Impairments Impairments Activity Tolerance,Balance, Functional Activities, Functional Mobility,Pain,ROM, Soft Tissue Mobility,Strength, Vestibular Goals L hip discomfort Impairment difficulty lifting her L LE in and out of the car Mcc Goal (LTG) pt will be able to lift her L LE in and out of the during car transfer LTG Duration 10 weeks stair climbing Impairment pt using R rail for stair climbing Mcc Goal (LTG) pt will be able to improve strength and balance to climb stairs without UE support LTG Duration 10 weeks Four Impairment Core and hip weakness Short Term Goal (STG) Pt to demonstrate increased hip abduction bilaterally to 4 +/5 STG Duration 02/06/20 - Improving Mcc Goal (LTG) Goal Met:Pt to exhibit core/ TrA MMT 4-/5 Advance to 4+/5 LTG Duration 03/07/20 - Improving Three Impairment Pt has not been able to swim for two years Short Term Goal (STG) cont to progress 10/20 pt has not able to use pool d/ t limited access from coronavirus phase reopening protocol Claim Taker Goal (LTG) Pt to return to community pool independently for exercise with no increased back pain LTG Duration 03/07/20 Two Impairment Pt only able to walk <one square block due to pain Short Term Goal (STG) 10/20 pt stated she is able to amb for 10-15 mins without break Pt to ambulate 1/2 mile with no increased pain STG Duration 02/06/20 - Improving Claim Taker Goal (LTG) 03/16/19 Pt is currently doing 1500- 2000 steps daily. Pt to ambulate [id number] steps daily to improve her activity tolerance. LTG Duration 12 weeks One Impairment Pt does not have an appropriate home exercise program Short Term Goal (STG) 10/20 goal met Pt to be independent and compliant with an appropriate HEP STG Duration Met Assessment Summary Assessment Pt overall appears to have better energy and improved mobility since beginning dialysis. Physical Therapy Plan Frequency and Duration Frequency of Treatment 2x/Week Duration of Treatment 10 weeks Plan of Care Start Date 03/24/20 Plan of Care End Date 06/07/20 Therapeutic Interventions Therapeutic Interventions Aquatic Therapy,Balance Training,Gait Training,Home Exercise Program,Joint Mobilizations,Manual Therapy, Neuromuscular Re-education, Patient/Caregiver Education, Self-Care/Home Management,Soft Tissue Mobilization,Taping, Therapeutic Activities, Therapeutic Exercises Modalities Cold Pack/Ice Massage,Electric Stimulation,Hot Packs, Infrared Therapy,Iontophoresis ,Ultrasound Next Visit Focus/Plan Next Note Type Treatment Note Next Visit Plan 2/6MWT cont hip mobility, pelvic tilt flexion based ex. Isolated lumbar movements
--- NOTE | 2020-05-05 12:47 | PT.OTN ---
Current Diagnoses Polyneuropathy, unspecified (05/05/20) Benign paroxysmal vertigo, left ear (05/05/20) Pain in right hip (05/05/20) Pain in left hip (05/05/20) Stiffness of right hip, not elsewhere classified (05/05/20) Stiffness of left hip, not elsewhere classified (05/05/20) Spondylolisthesis, lumbar region (05/05/20) Spondylosis without myelopathy or radiculopathy, lumbosacral region (05/05/20) Other intervertebral disc displacement, lumbar region (05/05/20) Muscle weakness (generalized) (05/05/20) Physical Therapy Treatment Note PT-OP-A Visit Information Start: 11/28/18 17:41 Freq: Status: Active Protocol: Document 05/05/20 12:00 DCW (Rec: 05/05/20 12:47 DCW [id number]) Out-Patient Physical Therapy Visit Information Visit Information Visit Type Treatment Note Visit Start Time 12:00 Visit Stop Time 12:50 Total Visit Minutes 50 Visit Number 72 Number of TOLL TEST WORKER Visits 0 PT-OP-B Current Condition Start: 11/28/18 17:41 Freq: Status: Active Protocol: Document 04/30/19 12:00 DCW (Rec: 04/30/19 17:55 DCW [id number]) Current Condition History of Current Condition Onset Date Two years Current Complaints Worsening back pain History of Current Condition Pt is a 78 year old female presenting with progressive low back pain. Pt notes she has had lumbar issues off and on for 20 years, but that six years ago, she was caring for her life partner, who was going through an illness at the time, and strained her back. It has been bad since then, and specifically worsening over the last two years. Additionally, pt notes that she pulled something on Monday in her left posterior hip, which has been causing even more pain and difficulty in her getting around. Pt notes that if she is sitting or lying down, she doesn't feel too bad, but if she stays in a position too samir, she has a large increase in pain when she tries to get up and move around. Pt feels like she has substantially decreased in her level of activity tolerance and overall fitness level. Pt reports that she tries to walk one block every day, and frequently is unable to do so. Pt also has in the past swam 3x/week, and now has not been to the pool in two years. ADDENDUM 04/30/19: Pt has a new referral for eval/treat of ongoing dizziness. Pt notes that dizziness occurs in episodes lasting seconds, and is brought on by lying back in bed or bending over to harness the dog. 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 The most prominent level of degenerative change is L3-L4, where there is a left lateral recess disc extrusion, with associated moderate to severe central canal narrowing. Moderate to severe bilateral neural foraminal narrowing is also seen at this level. Impression taken from Objective history of pt note from [facility] Arriaza on Prior Functional Status Baseline Function- ADL's Independent Baseline Function- Mobility Independent Baseline Function- Gait Walk multiple miles downtown Baseline Function- Recreation/Hobbies Swimming at community pool Current Functional Impairments (Reported) Functional Limitations- Mobility/Gait Pt unable to walk more than one block Functional Limitations- Recreation/ Pt has not gone to pool in [place] past two years. PT-OP-C Subjective Start: 11/28/18 17:41 Freq: Status: Active Protocol: Document 05/05/20 12:00 DCW (Rec: 05/05/20 12:47 DCW [id number]) OP-PT Subjective Patient Comments Patient Comments Pt tired and rickety after her dialysis yesterday. PT-OP-F Manual Assessment Start: 11/28/18 17:41 Freq: Status: Active Protocol: Document 01/06/20 13:45 DCW (Rec: 01/06/20 14:07 DCW [id number]) Manual Assessments Soft Tissue Assessment Soft Tissue Mobility Assessment Moderate tone and tenderness to palpation 2/4:Pain with wincing: bilateral QL, bilateral piriformis PT-OP-K Range of Motion Start: 11/28/18 17:41 Freq: Status: Active Protocol: Document 01/06/20 13:45 DCW (Rec: 01/06/20 14:07 DCW [id number]) Lumbar Spine Range of Motion Lumbar Spine Active Degrees Testing Position Standing Flexion 64 Extension 15 Lateral Flexion Left 60 Lateral Flexion Right 59 ROM Limitations Muscle Weakness,Pain PT-OP-L Special Tests Start: 11/28/18 17:41 Freq: Status: Active Protocol: Document 01/06/20 13:45 DCW (Rec: 01/06/20 14:07 DCW [id number]) Special Tests Lumbar Spine Special Tests Manual Traction Test Results Improves symptoms Compression Test Results Improves symptoms Hip Special Tests Piriformis Test Results B tenderness at Piriformis PARAS Test Results Positive left ipsilateral lateral hip pain PT-OP-M Strength Start: 11/28/18 17:41 Freq: Status: Active Protocol: Document 01/06/20 13:45 DCW (Rec: 01/06/20 14:07 DCW [id number]) Trunk Strength Trunk Manual Muscle Testing Core Stabilization Pt able to properly contract TrA with verbal cues, holds SLR for 10 seconds MMT: 4/5 Hip Strength Hip Manual Muscle Testing Right Flexion (L2) 4+ Good+ Abduction 4 Good Adduction 4 Good External Rotation 5 Normal Internal Rotation 5 Normal Left Flexion (L2) 4 Good Abduction 4 Good Adduction 4 Good External Rotation 5 Normal Internal Rotation 5 Normal Knee Strength Knee Manual Muscle Testing Right Flexion (S2) 4+ Good+ Extension (L3) 5 Normal Left Flexion (S2) 4+ Good+ Extension (L3) 5 Normal Ankle/Foot Strength Ankle and Foot Manual Muscle Testing Right Dorsiflexion (L4) 4+ Good+ Plantarflexion (S1) 4 Good Left Dorsiflexion (L4) 4+ Good+ Plantarflexion (S1) 4 Good PT-OP-O Vestibular Start: 04/30/19 17:56 Freq: Status: Active Protocol: Document 04/30/19 12:00 DCW (Rec: 05/01/19 09:44 DCW [id number]) Vestibular Assessment Visual Testing Smooth Pursuits Horizontal Questionable saccadic movement when following left Smooth Pursuits Vertical WNL Saccades Horizontal WNL Positional Testing Rush-Hallpike Negative Left,Negative Right Rolling Test Positive Left,Positive Right,> 60 Seconds Comments Vestibular Comments Ageotropic nystagmus with roll test, continued entire time pt was positioned PT-OP-Q Treatments Start: 11/28/18 17:41 Freq: Status: Active Protocol: Document 05/05/20 12:00 DCW (Rec: 05/05/20 12:47 DCW [id number]) Cardio Equipment Recumbent Elliptical ([employer]) Duration (Minutes) 6 Resistance 5 Seat Position 8 Gym Equipment Shuttle Recovery Unilateral Squats Resistance 37# Reps/Time 2x10 Bilateral Squats Resistance 75# Reps/Time x20 Therapeutic Exercises Other Exercises Resisted Ambulation Other Exercise Name Side-stepping Resistance Yellow Manual Therapy Treatment Soft Tissue Mobilization Piriformis Body Location R Piriformis Mobilization Type Strumming,Sustained Pressure Intensity/Depth Deep Body Position Sidelying L/S and glutes Body Location B L/S and glutes Mobilization Type Cross-Friction,Myofascial Release,Sustained Pressure Intensity/Depth Moderate Body Position Sidelying PT-OP-R Modalities Start: 11/28/18 17:41 Freq: Status: Active Protocol: Document 05/05/20 12:00 DCW (Rec: 05/05/20 12:47 DCW [id number]) Hot Pack/Cold Pack Treatment Hot Pack Location low back Patient Position Hooklying Treatment Duration (minutes) 10 Patient Tolerance Good PT-OP-T Assessment and Plan Start: 11/28/18 17:41 Freq: Status: Active Protocol: Document 05/05/20 12:00 DCW (Rec: 05/05/20 12:47 DCW [id number]) Physical Therapy Assessment Impairments Impairments Activity Tolerance,Balance, Functional Activities, Functional Mobility,Pain,ROM, Soft Tissue Mobility,Strength, Vestibular Goals L hip discomfort Impairment difficulty lifting her L LE in and out of the car Assisted Goal (LTG) pt will be able to lift her L LE in and out of the during car transfer LTG Duration 10 weeks stair climbing Impairment pt using R rail for stair climbing Assisted Goal (LTG) pt will be able to improve strength and balance to climb stairs without UE support LTG Duration 10 weeks Four Impairment Core and hip weakness Short Term Goal (STG) Pt to demonstrate increased hip abduction bilaterally to 4 +/5 STG Duration 02/06/20 - Improving Assisted Goal (LTG) Goal Met:Pt to exhibit core/ TrA MMT 4-/5 Advance to 4+/5 LTG Duration 03/07/20 - Improving Three Impairment Pt has not been able to swim for two years Short Term Goal (STG) cont to progress 10/20 pt has not able to use pool d/ t limited access from coronavirus phase reopening protocol Resident Programs Assistant Goal (LTG) Pt to return to community pool independently for exercise with no increased back pain LTG Duration 03/07/20 Two Impairment Pt only able to walk <one square block due to pain Short Term Goal (STG) 10/20 pt stated she is able to amb for 10-15 mins without break Pt to ambulate 1/2 mile with no increased pain STG Duration 02/06/20 - Improving Resident Programs Assistant Goal (LTG) 03/16/19 Pt is currently doing 1500- 2000 steps daily. Pt to ambulate [id number] steps daily to improve her activity tolerance. LTG Duration 12 weeks One Impairment Pt does not have an appropriate home exercise program Short Term Goal (STG) 10/20 goal met Pt to be independent and compliant with an appropriate HEP STG Duration Met Assessment Summary Assessment Pt very fatigued today, was falling asleep waiting in the waiting room, and nearly fell asleep again during STM. Pt did note improved pain levels during today's treatment. Physical Therapy Plan Frequency and Duration Frequency of Treatment 2x/Week Duration of Treatment 10 weeks Plan of Care Start Date 03/24/20 Plan of Care End Date 06/07/20 Therapeutic Interventions Therapeutic Interventions Aquatic Therapy,Balance Training,Gait Training,Home Exercise Program,Joint Mobilizations,Manual Therapy, Neuromuscular Re-education, Patient/Caregiver Education, Self-Care/Home Management,Soft Tissue Mobilization,Taping, Therapeutic Activities, Therapeutic Exercises Modalities Cold Pack/Ice Massage,Electric Stimulation,Hot Packs, Infrared Therapy,Iontophoresis ,Ultrasound Next Visit Focus/Plan Next Note Type Treatment Note Next Visit Plan 2/6MWT cont hip mobility, pelvic tilt flexion based ex. Isolated lumbar movements
--- NOTE | 2020-05-12 12:11 | PT.OTN ---
Current Diagnoses Polyneuropathy, unspecified (05/12/20) Benign paroxysmal vertigo, left ear (05/12/20) Pain in right hip (05/12/20) Pain in left hip (05/12/20) Stiffness of right hip, not elsewhere classified (05/12/20) Stiffness of left hip, not elsewhere classified (05/12/20) Spondylolisthesis, lumbar region (05/12/20) Spondylosis without myelopathy or radiculopathy, lumbosacral region (05/12/20) Other intervertebral disc displacement, lumbar region (05/12/20) Muscle weakness (generalized) (05/12/20) Physical Therapy Treatment Note PT-OP-A Visit Information Start: 11/28/18 17:41 Freq: Status: Active Protocol: Document 05/12/20 11:17 HH (Rec: 05/12/20 12:10 HH [id number]) Out-Patient Physical Therapy Visit Information Visit Information Visit Type Treatment Note Visit Start Time 11:17 Visit Stop Time 12:00 Total Visit Minutes 43 Visit Number 73 Number of SAP SENIOR DEVELOPER Visits 0 PT-OP-B Current Condition Start: 11/28/18 17:41 Freq: Status: Active Protocol: Document 04/30/19 12:00 DCW (Rec: 04/30/19 17:55 DCW [id number]) Current Condition History of Current Condition Onset Date Two years Current Complaints Worsening back pain History of Current Condition Pt is a 78 year old female presenting with progressive low back pain. Pt notes she has had lumbar issues off and on for 20 years, but that six years ago, she was caring for her life partner, who was going through an illness at the time, and strained her back. It has been bad since then, and specifically worsening over the last two years. Additionally, pt notes that she pulled something on Monday in her left posterior hip, which has been causing even more pain and difficulty in her getting around. Pt notes that if she is sitting or lying down, she doesn't feel too bad, but if she stays in a position too samir, she has a large increase in pain when she tries to get up and move around. Pt feels like she has substantially decreased in her level of activity tolerance and overall fitness level. Pt reports that she tries to walk one block every day, and frequently is unable to do so. Pt also has in the past swam 3x/week, and now has not been to the pool in two years. ADDENDUM 04/30/19: Pt has a new referral for eval/treat of ongoing dizziness. Pt notes that dizziness occurs in episodes lasting seconds, and is brought on by lying back in bed or bending over to harness the dog. 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 The most prominent level of degenerative change is L3-L4, where there is a left lateral recess disc extrusion, with associated moderate to severe central canal narrowing. Moderate to severe bilateral neural foraminal narrowing is also seen at this level. Impression taken from Objective history of pt note from MIRACLE Arriaza on Prior Functional Status Baseline Function- ADL's Independent Baseline Function- Mobility Independent Baseline Function- Gait Walk multiple miles downtown Baseline Function- Recreation/Hobbies Swimming at community pool Current Functional Impairments (Reported) Functional Limitations- Mobility/Gait Pt unable to walk more than one block Functional Limitations- Recreation/ Pt has not gone to pool in [place] past two years. PT-OP-C Subjective Start: 11/28/18 17:41 Freq: Status: Active Protocol: Document 05/12/20 11:17 HH (Rec: 05/12/20 12:10 HH [id number]) OP-PT Subjective Patient Comments Patient Comments Im doing pretty good but my BP elevated twice during my dialysis but they dont really know why. Im overall stronger and able to walk more. Cassidy been getting [id number] lately since 2 weeks ago. My L hip has been feeling pretty well. Patient Reported Progress Improving PT-OP-F Manual Assessment Start: 11/28/18 17:41 Freq: Status: Active Protocol: Document 01/06/20 13:45 DCW (Rec: 01/06/20 14:07 DCW [id number]) Manual Assessments Soft Tissue Assessment Soft Tissue Mobility Assessment Moderate tone and tenderness to palpation 2/4:Pain with wincing: bilateral QL, bilateral piriformis PT-OP-K Range of Motion Start: 11/28/18 17:41 Freq: Status: Active Protocol: Document 01/06/20 13:45 DCW (Rec: 01/06/20 14:07 DCW [id number]) Lumbar Spine Range of Motion Lumbar Spine Active Degrees Testing Position Standing Flexion 64 Extension 15 Lateral Flexion Left 60 Lateral Flexion Right 59 ROM Limitations Muscle Weakness,Pain PT-OP-L Special Tests Start: 11/28/18 17:41 Freq: Status: Active Protocol: Document 01/06/20 13:45 DCW (Rec: 01/06/20 14:07 DCW [id number]) Special Tests Lumbar Spine Special Tests Manual Traction Test Results Improves symptoms Compression Test Results Improves symptoms Hip Special Tests Piriformis Test Results B tenderness at Piriformis PARAS Test Results Positive left ipsilateral lateral hip pain PT-OP-M Strength Start: 11/28/18 17:41 Freq: Status: Active Protocol: Document 01/06/20 13:45 DCW (Rec: 01/06/20 14:07 DCW [id number]) Trunk Strength Trunk Manual Muscle Testing Core Stabilization Pt able to properly contract TrA with verbal cues, holds SLR for 10 seconds MMT: 4/5 Hip Strength Hip Manual Muscle Testing Right Flexion (L2) 4+ Good+ Abduction 4 Good Adduction 4 Good External Rotation 5 Normal Internal Rotation 5 Normal Left Flexion (L2) 4 Good Abduction 4 Good Adduction 4 Good External Rotation 5 Normal Internal Rotation 5 Normal Knee Strength Knee Manual Muscle Testing Right Flexion (S2) 4+ Good+ Extension (L3) 5 Normal Left Flexion (S2) 4+ Good+ Extension (L3) 5 Normal Ankle/Foot Strength Ankle and Foot Manual Muscle Testing Right Dorsiflexion (L4) 4+ Good+ Plantarflexion (S1) 4 Good Left Dorsiflexion (L4) 4+ Good+ Plantarflexion (S1) 4 Good PT-OP-O Vestibular Start: 04/30/19 17:56 Freq: Status: Active Protocol: Document 04/30/19 12:00 DCW (Rec: 05/01/19 09:44 DCW [id number]) Vestibular Assessment Visual Testing Smooth Pursuits Horizontal Questionable saccadic movement when following left Smooth Pursuits Vertical WNL Saccades Horizontal WNL Positional Testing Cecil-Hallpike Negative Left,Negative Right Rolling Test Positive Left,Positive Right,> 60 Seconds Comments Vestibular Comments Ageotropic nystagmus with roll test, continued entire time pt was positioned PT-OP-Q Treatments Start: 11/28/18 17:41 Freq: Status: Active Protocol: Document 05/12/20 11:17 HH (Rec: 03/02/21 12:10 [id number]) Gym Equipment Shuttle Recovery Unilateral Squats Resistance 37# Reps/Time 2x10 Bilateral Squats Resistance 75# Reps/Time x20 x2 Therapeutic Exercises Supine Exercises calf stretch Supine Exercise Name knee flexed and extended positions. Side bilateral Reps/Minutes 15 sec hold x5 Sitting Exercises ankle DF PF Side left Equipment Used half foamroller on floor Reps/Minutes 4 mins PT-OP-R Modalities Start: 11/28/18 17:41 Freq: Status: Active Protocol: Document 05/12/20 11:17 HH (Rec: 05/12/20 12:10 [id number]) Hot Pack/Cold Pack Treatment Hot Pack Location low back Patient Position Hooklying Treatment Duration (minutes) 10 Patient Tolerance Good PT-OP-T Assessment and Plan Start: 11/28/18 17:41 Freq: Status: Active Protocol: Document 05/12/20 11:17 HH (Rec: 05/12/20 12:10 [id number]) Physical Therapy Assessment Goals L hip discomfort Impairment difficulty lifting her L LE in and out of the car Penitentiary Goal (LTG) pt will be able to lift her L LE in and out of the during car transfer LTG Duration 10 weeks stair climbing Impairment pt using R rail for stair climbing [facility]it[facility]iary Goal (LTG) pt will be able to improve strength and balance to climb stairs without UE support LTG Duration 10 weeks Four Impairment Core and hip weakness Short Term Goal (STG) Pt to demonstrate increased hip abduction bilaterally to 4 +/5 STG Duration 02/06/20 - Improving Penitentiary Goal (LTG) Goal Met:Pt to exhibit core/ TrA MMT 4-/5 Advance to 4+/5 LTG Duration 03/07/20 - Improving Three Impairment Pt has not been able to swim for two years Short Term Goal (STG) cont to progress 10/20 pt has not able to use pool d/ t limited access from coronavirus phase reopening protocol Telegraph Office Manager Goal (LTG) Pt to return to community pool independently for exercise with no increased back pain LTG Duration 03/07/20 Two Impairment Pt only able to walk <one square block due to pain Short Term Goal (STG) 8 pt stated she is able to amb for 10-15 mins without break Pt to ambulate 1/2 mile with no increased pain STG Duration 02/06/20 - Improving [facility]it[facility]iary Goal (LTG) 03/16/19 Pt is currently doing 1500- 2000 steps daily. Pt to ambulate [id number] steps daily to improve her activity tolerance. LTG Duration 12 weeks One Impairment Pt does not have an appropriate home exercise program Short Term Goal (STG) 10/20 goal met Pt to be independent and compliant with an appropriate HEP STG Duration Met Assessment Summary Assessment Pt reports she feels more energetic overall. However, she mentioned that she has tripped a few times with L foot for the past 2 months and this PT noticed pt has 2/5 ankle eversion strength and limited ankle DF mobility possibly d/t her radiculopathy from L hip and peripheral neuropathy. Will add home exercise for calf stretch, eversion and DF next visit. Physical Therapy Plan Frequency and Duration Frequency of Treatment 2x/Week Duration of Treatment 10 weeks Plan of Care Start Date 03/24/20 Plan of Care End Date 06/07/20 Next Visit Focus/Plan Next Note Type Treatment Note Next Visit Plan 2/6MWT cont hip mobility, pelvic tilt flexion based ex. Isolated lumbar movements
--- NOTE | 2020-05-14 11:58 | PT.OTN ---
Current Diagnoses Polyneuropathy, unspecified (05/14/20) Benign paroxysmal vertigo, left ear (05/14/20) Pain in right hip (05/14/20) Pain in left hip (05/14/20) Stiffness of right hip, not elsewhere classified (05/14/20) Stiffness of left hip, not elsewhere classified (05/14/20) Spondylolisthesis, lumbar region (05/14/20) Spondylosis without myelopathy or radiculopathy, lumbosacral region (05/14/20) Other intervertebral disc displacement, lumbar region (05/14/20) Muscle weakness (generalized) (05/14/20) Physical Therapy Treatment Note PT-OP-A Visit Information Start: 11/28/18 17:41 Freq: Status: Active Protocol: Document 05/14/20 11:15 DCW (Rec: 05/14/20 11:58 DCW [id number]) Out-Patient Physical Therapy Visit Information Visit Information Visit Type Treatment Note Visit Start Time 11:15 Visit Stop Time 12:00 Total Visit Minutes 45 Visit Number 74 Number of TERRY CLOTH CUTTER HAND Visits 0 PT-OP-B Current Condition Start: 11/28/18 17:41 Freq: Status: Active Protocol: Document 04/30/19 12:00 DCW (Rec: 04/30/19 17:55 DCW [id number]) Current Condition History of Current Condition Onset Date Two years Current Complaints Worsening back pain History of Current Condition Pt is a 78 year old female presenting with progressive low back pain. Pt notes she has had lumbar issues off and on for 20 years, but that six years ago, she was caring for her life partner, who was going through an illness at the time, and strained her back. It has been bad since then, and specifically worsening over the last two years. Additionally, pt notes that she pulled something on Monday in her left posterior hip, which has been causing even more pain and difficulty in her getting around. Pt notes that if she is sitting or lying down, she doesn't feel too bad, but if she stays in a position too samir, she has a large increase in pain when she tries to get up and move around. Pt feels like she has substantially decreased in her level of activity tolerance and overall fitness level. Pt reports that she tries to walk one block every day, and frequently is unable to do so. Pt also has in the past swam 3x/week, and now has not been to the pool in two years. ADDENDUM 04/30/19: Pt has a new referral for eval/treat of ongoing dizziness. Pt notes that dizziness occurs in episodes lasting seconds, and is brought on by lying back in bed or bending over to harness the dog. 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 The most prominent level of degenerative change is L3-L4, where there is a left lateral recess disc extrusion, with associated moderate to severe central canal narrowing. Moderate to severe bilateral neural foraminal narrowing is also seen at this level. Impression taken from Objective history of pt note from MIRAC[facility] Arriaza on Prior Functional Status Baseline Function- ADL's Independent Baseline Function- Mobility Independent Baseline Function- Gait Walk multiple miles downtown Baseline Function- Recreation/Hobbies Swimming at community pool Current Functional Impairments (Reported) Functional Limitations- Mobility/Gait Pt unable to walk more than one block Functional Limitations- Recreation/ Pt has not gone to pool in [place] past two years. PT-OP-C Subjective Start: 11/28/18 17:41 Freq: Status: Active Protocol: Document 05/14/20 11:15 DCW (Rec: 05/14/20 11:58 DCW [id number]) OP-PT Subjective Patient Comments Patient Comments Pt reports she is fat and sassy today. Does admit that dialysis is taking a lot out of you. PT-OP-F Manual Assessment Start: 11/28/18 17:41 Freq: Status: Active Protocol: Document 01/06/20 13:45 DCW (Rec: 01/06/20 14:07 DCW [id number]) Manual Assessments Soft Tissue Assessment Soft Tissue Mobility Assessment Moderate tone and tenderness to palpation 2/4:Pain with wincing: bilateral QL, bilateral piriformis PT-OP-K Range of Motion Start: 11/28/18 17:41 Freq: Status: Active Protocol: Document 01/06/20 13:45 DCW (Rec: 01/06/20 14:07 DCW [id number]) Lumbar Spine Range of Motion Lumbar Spine Active Degrees Testing Position Standing Flexion 64 Extension 15 Lateral Flexion Left 60 Lateral Flexion Right 59 ROM Limitations Muscle Weakness,Pain PT-OP-L Special Tests Start: 11/28/18 17:41 Freq: Status: Active Protocol: Document 01/06/20 13:45 DCW (Rec: 01/06/20 14:07 DCW [id number]) Special Tests Lumbar Spine Special Tests Manual Traction Test Results Improves symptoms Compression Test Results Improves symptoms Hip Special Tests Piriformis Test Results B tenderness at Piriformis PARAS Test Results Positive left ipsilateral lateral hip pain PT-OP-M Strength Start: 11/28/18 17:41 Freq: Status: Active Protocol: Document 01/06/20 13:45 DCW (Rec: 01/06/20 14:07 DCW [id number]) Trunk Strength Trunk Manual Muscle Testing Core Stabilization Pt able to properly contract TrA with verbal cues, holds SLR for 10 seconds MMT: 4/5 Hip Strength Hip Manual Muscle Testing Right Flexion (L2) 4+ Good+ Abduction 4 Good Adduction 4 Good External Rotation 5 Normal Internal Rotation 5 Normal Left Flexion (L2) 4 Good Abduction 4 Good Adduction 4 Good External Rotation 5 Normal Internal Rotation 5 Normal Knee Strength Knee Manual Muscle Testing Right Flexion (S2) 4+ Good+ Extension (L3) 5 Normal Left Flexion (S2) 4+ Good+ Extension (L3) 5 Normal Ankle/Foot Strength Ankle and Foot Manual Muscle Testing Right Dorsiflexion (L4) 4+ Good+ Plantarflexion (S1) 4 Good Left Dorsiflexion (L4) 4+ Good+ Plantarflexion (S1) 4 Good PT-OP-O Vestibular Start: 04/30/19 17:56 Freq: Status: Active Protocol: Document 04/30/19 12:00 DCW (Rec: 05/01/19 09:44 DCW [id number]) Vestibular Assessment Visual Testing Smooth Pursuits Horizontal Questionable saccadic movement when following left Smooth Pursuits Vertical WNL Saccades Horizontal WNL Positional Testing Rush-Hallpike Negative Left,Negative Right Rolling Test Positive Left,Positive Right,> 60 Seconds Comments Vestibular Comments Ageotropic nystagmus with roll test, continued entire time pt was positioned PT-OP-Q Treatments Start: 11/28/18 17:41 Freq: Status: Active Protocol: Document 05/14/20 11:15 DCW (Rec: 05/14/20 11:58 DCW [id number]) Cardio Equipment Recumbent Elliptical (Biodex) Duration (Minutes) 6 Resistance 5 Seat Position 8 Gym Equipment Shuttle Recovery Unilateral Squats Resistance 37# Reps/Time 2x10 Bilateral Squats Resistance 75# Reps/Time x20 x2 Therapeutic Exercises Sitting Exercises ankle DF PF Side left Equipment Used half foamroller on floor Reps/Minutes 4 mins Comments /c manual joint mobs Standing Exercises gastroc stretch Standing Exercise Name gastroc stretch Side bilateral Equipment Used BHAKTI Manual Therapy Treatment Joint Mobilizations ankle Joint L ankle Direction inferior, posterior Grade III Body Position Sitting PT-OP-R Modalities Start: 11/28/18 17:41 Freq: Status: Active Protocol: Document 05/14/20 11:15 DCW (Rec: 05/14/20 11:58 DCW [id number]) Hot Pack/Cold Pack Treatment Hot Pack Location low back Patient Position Hooklying Treatment Duration (minutes) 10 Patient Tolerance Good PT-OP-T Assessment and Plan Start: 11/28/18 17:41 Freq: Status: Active Protocol: Document 05/14/20 11:15 DCW (Rec: 05/14/20 11:58 DCW [id number]) Physical Therapy Assessment Impairments Impairments Activity Tolerance,Balance, Functional Activities, Functional Mobility,Pain,ROM, Soft Tissue Mobility,Strength, Vestibular Goals L hip discomfort Impairment difficulty lifting her L LE in and out of the car Shore Worker Goal (LTG) pt will be able to lift her L LE in and out of the during car transfer LTG Duration 10 weeks stair climbing Impairment pt using R rail for stair climbing Shore Worker Goal (LTG) pt will be able to improve strength and balance to climb stairs without UE support LTG Duration 10 weeks Four Impairment Core and hip weakness Short Term Goal (STG) Pt to demonstrate increased hip abduction bilaterally to 4 +/5 STG Duration 02/06/20 - Improving Shore Worker Goal (LTG) Goal Met:Pt to exhibit core/ TrA MMT 4-/5 Advance to 4+/5 LTG Duration 03/07/20 - Improving Three Impairment Pt has not been able to swim for two years Short Term Goal (STG) cont to progress 10/20 pt has not able to use pool d/ t limited access from coronavirus phase reopening protocol Shore Worker Goal (LTG) Pt to return to community pool independently for exercise with no increased back pain LTG Duration 03/07/20 Two Impairment Pt only able to walk <one square block due to pain Short Term Goal (STG) 10/20 pt stated she is able to amb for 10-15 mins without break Pt to ambulate 1/2 mile with no increased pain STG Duration 02/06/20 - Improving Long-Term Goal (LTG) 03/16/19 Pt is currently doing 1500- 2000 steps daily. Pt to ambulate [id number] steps daily to improve her activity tolerance. LTG Duration 12 weeks One Impairment Pt does not have an appropriate home exercise program Short Term Goal (STG) 10/20 goal met Pt to be independent and compliant with an appropriate HEP STG Duration Met Assessment Summary Assessment Pt feeling much better about her ankle mobility, reports it has loosened up since Monday . Pt overall having fewer subjective complaints about her back pain and dixcomfort with mobility. Physical Therapy Plan Frequency and Duration Frequency of Treatment 2x/Week Duration of Treatment 10 weeks Plan of Care Start Date 03/24/20 Plan of Care End Date 06/07/20 Therapeutic Interventions Therapeutic Interventions Aquatic Therapy,Balance Training,Gait Training,Home Exercise Program,Joint Mobilizations,Manual Therapy, Neuromuscular Re-education, Patient/Caregiver Education, Self-Care/Home Management,Soft Tissue Mobilization,Taping, Therapeutic Activities, Therapeutic Exercises Modalities Cold Pack/Ice Massage,Electric Stimulation,Hot Packs, Infrared Therapy,Iontophoresis ,Ultrasound Next Visit Focus/Plan Next Note Type Treatment Note Next Visit Plan 2/6MWT cont hip mobility, pelvic tilt flexion based ex. Isolated lumbar movements
--- NOTE | 2020-05-19 12:11 | PT.OTN ---
Current Diagnoses Polyneuropathy, unspecified (05/19/20) Benign paroxysmal vertigo, left ear (05/19/20) Pain in right hip (05/19/20) Pain in left hip (05/19/20) Stiffness of right hip, not elsewhere classified (05/19/20) Stiffness of left hip, not elsewhere classified (05/19/20) Spondylolisthesis, lumbar region (05/19/20) Spondylosis without myelopathy or radiculopathy, lumbosacral region (05/19/20) Other intervertebral disc displacement, lumbar region (05/19/20) Muscle weakness (generalized) (05/19/20) Physical Therapy Treatment Note PT-OP-A Visit Information Start: 11/28/18 17:41 Freq: Status: Active Protocol: Document 05/19/20 11:20 HH (Rec: 05/19/20 12:11 HH [id number]) Out-Patient Physical Therapy Visit Information Visit Information Visit Type Treatment Note Visit Start Time 11:19 Visit Stop Time 12:08 Total Visit Minutes 49 Visit Number 75 Number of CORE SETTER Visits 0 PT-OP-B Current Condition Start: 11/28/18 17:41 Freq: Status: Active Protocol: Document 04/30/19 12:00 DCW (Rec: 04/30/19 17:55 DCW [id number]) Current Condition History of Current Condition Onset Date Two years Current Complaints Worsening back pain History of Current Condition Pt is a 78 year old female presenting with progressive low back pain. Pt notes she has had lumbar issues off and on for 20 years, but that six years ago, she was caring for her life partner, who was going through an illness at the time, and strained her back. It has been bad since then, and specifically worsening over the last two years. Additionally, pt notes that she pulled something on Monday in her left posterior hip, which has been causing even more pain and difficulty in her getting around. Pt notes that if she is sitting or lying down, she doesn't feel too bad, but if she stays in a position too samir, she has a large increase in pain when she tries to get up and move around. Pt feels like she has substantially decreased in her level of activity tolerance and overall fitness level. Pt reports that she tries to walk one block every day, and frequently is unable to do so. Pt also has in the past swam 3x/week, and now has not been to the pool in two years. ADDENDUM 04/30/19: Pt has a new referral for eval/treat of ongoing dizziness. Pt notes that dizziness occurs in episodes lasting seconds, and is brought on by lying back in bed or bending over to harness the dog. 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 The most prominent level of degenerative change is L3-L4, where there is a left lateral recess disc extrusion, with associated moderate to severe central canal narrowing. Moderate to severe bilateral neural foraminal narrowing is also seen at this level. Impression taken from Objective history of pt note from MIRACLE Arriaza on Prior Functional Status Baseline Function- ADL's Independent Baseline Function- Mobility Independent Baseline Function- Gait Walk multiple miles downtown Baseline Function- Recreation/Hobbies Swimming at community pool Current Functional Impairments (Reported) Functional Limitations- Mobility/Gait Pt unable to walk more than one block Functional Limitations- Recreation/ Pt has not gone to pool in [place] past two years. PT-OP-C Subjective Start: 11/28/18 17:41 Freq: Status: Active Protocol: Document 05/19/20 11:20 HH (Rec: 05/19/20 12:11 HH [id number]) OP-PT Subjective Patient Comments Patient Comments My foot is feeling fine and i havent tripped yet. I had indigestion for the two days because of the new dialysis meals. PT-OP-F Manual Assessment Start: 11/28/18 17:41 Freq: Status: Active Protocol: Document 01/06/20 13:45 DCW (Rec: 01/06/20 14:07 DCW [id number]) Manual Assessments Soft Tissue Assessment Soft Tissue Mobility Assessment Moderate tone and tenderness to palpation 2/4:Pain with wincing: bilateral QL, bilateral piriformis PT-OP-K Range of Motion Start: 11/28/18 17:41 Freq: Status: Active Protocol: Document 01/06/20 13:45 DCW (Rec: 01/06/20 14:07 DCW [id number]) Lumbar Spine Range of Motion Lumbar Spine Active Degrees Testing Position Standing Flexion 64 Extension 15 Lateral Flexion Left 60 Lateral Flexion Right 59 ROM Limitations Muscle Weakness,Pain PT-OP-L Special Tests Start: 11/28/18 17:41 Freq: Status: Active Protocol: Document 01/06/20 13:45 DCW (Rec: 01/06/20 14:07 DCW [id number]) Special Tests Lumbar Spine Special Tests Manual Traction Test Results Improves symptoms Compression Test Results Improves symptoms Hip Special Tests Piriformis Test Results B tenderness at Piriformis PARAS Test Results Positive left ipsilateral lateral hip pain PT-OP-M Strength Start: 11/28/18 17:41 Freq: Status: Active Protocol: Document 01/06/20 13:45 DCW (Rec: 01/06/20 14:07 DCW [id number]) Trunk Strength Trunk Manual Muscle Testing Core Stabilization Pt able to properly contract TrA with verbal cues, holds SLR for 10 seconds MMT: 4/5 Hip Strength Hip Manual Muscle Testing Right Flexion (L2) 4+ Good+ Abduction 4 Good Adduction 4 Good External Rotation 5 Normal Internal Rotation 5 Normal Left Flexion (L2) 4 Good Abduction 4 Good Adduction 4 Good External Rotation 5 Normal Internal Rotation 5 Normal Knee Strength Knee Manual Muscle Testing Right Flexion (S2) 4+ Good+ Extension (L3) 5 Normal Left Flexion (S2) 4+ Good+ Extension (L3) 5 Normal Ankle/Foot Strength Ankle and Foot Manual Muscle Testing Right Dorsiflexion (L4) 4+ Good+ Plantarflexion (S1) 4 Good Left Dorsiflexion (L4) 4+ Good+ Plantarflexion (S1) 4 Good PT-OP-O Vestibular Start: 04/30/19 17:56 Freq: Status: Active Protocol: Document 04/30/19 12:00 DCW (Rec: 05/01/19 09:44 DCW [id number]) Vestibular Assessment Visual Testing Smooth Pursuits Horizontal Questionable saccadic movement when following left Smooth Pursuits Vertical WNL Saccades Horizontal WNL Positional Testing [place]-Hallpike Negative Left,Negative Right Rolling Test Positive Left,Positive Right,> 60 Seconds Comments Vestibular Comments Ageotropic nystagmus with roll test, continued entire time pt was positioned PT-OP-Q Treatments Start: 11/28/18 17:41 Freq: Status: Active Protocol: Document 05/19/20 11:20 HH (Rec: 05/19/20 12:11 HH [id number]) Cardio Equipment Recumbent Stepper (Sci-Fit) Duration (Minutes) 6 Resistance 2.0 Seat Position 9 Gym Equipment Shuttle Recovery Unilateral Squats Resistance 37# Reps/Time 2x 12 Therapeutic Exercises Sitting Exercises ankle DF PF Side left Equipment Used half foamroller on floor Reps/Minutes 4 mins Comments /c manual joint mobs Standing Exercises side steps Side bilateral Reps/Minutes 20 ft x 5 standing hip extension , abduction Standing Exercise Name abduction only Side left Reps/Minutes 10 x 2 gastroc stretch Standing Exercise Name gastroc stretch Side bilateral Equipment Used BHAKTI Reps/Minutes 30sec x 3 Manual Therapy Treatment Soft Tissue Mobilization L/S and glutes Mobilization Type Sustained Pressure,Trigger Point Release Intensity/Depth Moderate Body Position Sidelying PT-OP-R Modalities Start: 11/28/18 17:41 Freq: Status: Active Protocol: Document 05/19/20 11:20 (Rec: 05/19/20 12:11 [id number]) Hot Pack/Cold Pack Treatment Hot Pack Location low back Patient Position Hooklying Treatment Duration (minutes) 10 Patient Tolerance Good PT-OP-T Assessment and Plan Start: 11/28/18 17:41 Freq: Status: Active Protocol: Document 05/19/20 11:20 HH (Rec: 05/19/20 12:11 [id number]) Physical Therapy Assessment Goals L hip discomfort Impairment difficulty lifting her L LE in and out of the car Fresh Food Manager Goal (LTG) pt will be able to lift her L LE in and out of the during car transfer LTG Duration 10 weeks stair climbing Impairment pt using R rail for stair climbing Custodial Goal (LTG) pt will be able to improve strength and balance to climb stairs without UE support LTG Duration 10 weeks Four Impairment Core and hip weakness Short Term Goal (STG) Pt to demonstrate increased hip abduction bilaterally to 4 +/5 STG Duration 02/06/20 - Improving Fresh Food Manager Goal (LTG) Goal Met:Pt to exhibit core/ TrA MMT 4-/5 Advance to 4+/5 LTG Duration 03/07/20 - Improving Three Impairment Pt has not been able to swim for two years Short Term Goal (STG) cont to progress 10/20 pt has not able to use pool d/ t limited access from coronavirus phase reopening protocol Custodial Goal (LTG) Pt to return to community pool independently for exercise with no increased back pain LTG Duration 03/07/20 Two Impairment Pt only able to walk <one square block due to pain Short Term Goal (STG) 8 pt stated she is able to amb for 10-15 mins without break Pt to ambulate 1/2 mile with no increased pain STG Duration 02/06/20 - Improving Custodial Goal (LTG) 03/16/19 Pt is currently doing 1500- 2000 steps daily. Pt to ambulate 9220-1599 steps daily to improve her activity tolerance. LTG Duration 12 weeks One Impairment Pt does not have an appropriate home exercise program Short Term Goal (STG) 10/20 goal met Pt to be independent and compliant with an appropriate HEP STG Duration Met Assessment Summary Assessment Pt kong session well. She still has difficulty with L ankle active eversion. Reassessment due next visit.e Physical Therapy Plan Frequency and Duration Frequency of Treatment 2x/Week Duration of Treatment 10 weeks Plan of Care Start Date 03/24/20 Plan of Care End Date 06/07/20 Next Visit Focus/Plan Next Note Type Treatment Note Next Visit Plan 2/6MWT cont hip mobility, pelvic tilt flexion based ex. Isolated lumbar movements
--- NOTE | 2020-05-21 12:02 | PT.OTN ---
Current Diagnoses Polyneuropathy, unspecified (05/21/20) Benign paroxysmal vertigo, left ear (05/21/20) Pain in right hip (05/21/20) Pain in left hip (05/21/20) Stiffness of right hip, not elsewhere classified (05/21/20) Stiffness of left hip, not elsewhere classified (05/21/20) Spondylolisthesis, lumbar region (05/21/20) Spondylosis without myelopathy or radiculopathy, lumbosacral region (05/21/20) Other intervertebral disc displacement, lumbar region (05/21/20) Muscle weakness (generalized) (05/21/20) Physical Therapy Treatment Note PT-OP-A Visit Information Start: 11/28/18 17:41 Freq: Status: Active Protocol: Document 05/21/20 11:20 DCW (Rec: 05/21/20 12:01 DCW [id number]) Out-Patient Physical Therapy Visit Information Visit Information Visit Type Treatment Note Visit Start Time 11:20 Visit Stop Time 12:10 Total Visit Minutes 50 Visit Number 76 Number of RN ACCESS Visits 0 PT-OP-B Current Condition Start: 11/28/18 17:41 Freq: Status: Active Protocol: Document 04/30/19 12:00 DCW (Rec: 04/30/19 17:55 DCW [id number]) Current Condition History of Current Condition Onset Date Two years Current Complaints Worsening back pain History of Current Condition Pt is a 78 year old female presenting with progressive low back pain. Pt notes she has had lumbar issues off and on for 20 years, but that six years ago, she was caring for her life partner, who was going through an illness at the time, and strained her back. It has been bad since then, and specifically worsening over the last two years. Additionally, pt notes that she pulled something on Monday in her left posterior hip, which has been causing even more pain and difficulty in her getting around. Pt notes that if she is sitting or lying down, she doesn't feel too bad, but if she stays in a position too samir, she has a large increase in pain when she tries to get up and move around. Pt feels like she has substantially decreased in her level of activity tolerance and overall fitness level. Pt reports that she tries to walk one block every day, and frequently is unable to do so. Pt also has in the past swam 3x/week, and now has not been to the pool in two years. ADDENDUM 04/30/19: Pt has a new referral for eval/treat of ongoing dizziness. Pt notes that dizziness occurs in episodes lasting seconds, and is brought on by lying back in bed or bending over to harness the dog. 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 The most prominent level of degenerative change is L3-L4, where there is a left lateral recess disc extrusion, with associated moderate to severe central canal narrowing. Moderate to severe bilateral neural foraminal narrowing is also seen at this level. Impression taken from Objective history of pt note from MIRACLE Arriaza on Prior Functional Status Baseline Function- ADL's Independent Baseline Function- Mobility Independent Baseline Function- Gait Walk multiple miles downtown Baseline Function- Recreation/Hobbies Swimming at community pool Current Functional Impairments (Reported) Functional Limitations- Mobility/Gait Pt unable to walk more than one block Functional Limitations- Recreation/ Pt has not gone to pool in [place] past two years. PT-OP-C Subjective Start: 11/28/18 17:41 Freq: Status: Active Protocol: Document 05/21/20 11:20 DCW (Rec: 05/21/20 12:01 DCW [id number]) OP-PT Subjective Patient Comments Patient Comments I just have no energy today after dialysis yesterday. PT-OP-F Manual Assessment Start: 11/28/18 17:41 Freq: Status: Active Protocol: Document 01/06/20 13:45 DCW (Rec: 01/06/20 14:07 DCW [id number]) Manual Assessments Soft Tissue Assessment Soft Tissue Mobility Assessment Moderate tone and tenderness to palpation 2/4:Pain with wincing: bilateral QL, bilateral piriformis PT-OP-K Range of Motion Start: 11/28/18 17:41 Freq: Status: Active Protocol: Document 01/06/20 13:45 DCW (Rec: 01/06/20 14:07 DCW [id number]) Lumbar Spine Range of Motion Lumbar Spine Active Degrees Testing Position Standing Flexion 64 Extension 15 Lateral Flexion Left 60 Lateral Flexion Right 59 ROM Limitations Muscle Weakness,Pain PT-OP-L Special Tests Start: 11/28/18 17:41 Freq: Status: Active Protocol: Document 01/06/20 13:45 DCW (Rec: 01/06/20 14:07 DCW [id number]) Special Tests Lumbar Spine Special Tests Manual Traction Test Results Improves symptoms Compression Test Results Improves symptoms Hip Special Tests Piriformis Test Results B tenderness at Piriformis PARAS Test Results Positive left ipsilateral lateral hip pain PT-OP-M Strength Start: 11/28/18 17:41 Freq: Status: Active Protocol: Document 01/06/20 13:45 DCW (Rec: 01/06/20 14:07 DCW [id number]) Trunk Strength Trunk Manual Muscle Testing Core Stabilization Pt able to properly contract TrA with verbal cues, holds SLR for 10 seconds MMT: 4/5 Hip Strength Hip Manual Muscle Testing Right Flexion (L2) 4+ Good+ Abduction 4 Good Adduction 4 Good External Rotation 5 Normal Internal Rotation 5 Normal Left Flexion (L2) 4 Good Abduction 4 Good Adduction 4 Good External Rotation 5 Normal Internal Rotation 5 Normal Knee Strength Knee Manual Muscle Testing Right Flexion (S2) 4+ Good+ Extension (L3) 5 Normal Left Flexion (S2) 4+ Good+ Extension (L3) 5 Normal Ankle/Foot Strength Ankle and Foot Manual Muscle Testing Right Dorsiflexion (L4) 4+ Good+ Plantarflexion (S1) 4 Good Left Dorsiflexion (L4) 4+ Good+ Plantarflexion (S1) 4 Good PT-OP-O Vestibular Start: 04/30/19 17:56 Freq: Status: Active Protocol: Document 04/30/19 12:00 DCW (Rec: 05/01/19 09:44 DCW [id number]) Vestibular Assessment Visual Testing Smooth Pursuits Horizontal Questionable saccadic movement when following left Smooth Pursuits Vertical WNL Saccades Horizontal WNL Positional Testing [place]-Hallpike Negative Left,Negative Right Rolling Test Positive Left,Positive Right,> 60 Seconds Comments Vestibular Comments Ageotropic nystagmus with roll test, continued entire time pt was positioned PT-OP-Q Treatments Start: 11/28/18 17:41 Freq: Status: Active Protocol: Document 05/21/20 11:20 DCW (Rec: 05/21/20 12:01 DCW [id number]) Cardio Equipment Recumbent Elliptical ([employer]) Duration (Minutes) 6 Resistance 5 Seat Position 8 Gym Equipment Shuttle Recovery Unilateral Squats Resistance 37# Reps/Time 2x10 Bilateral Squats Resistance 75# Reps/Time x20 x2 Therapeutic Exercises Other Exercises Resisted Ambulation Other Exercise Name Side-stepping Resistance Yellow Manual Therapy Treatment Soft Tissue Mobilization Piriformis Body Location R Piriformis Mobilization Type Strumming,Sustained Pressure Intensity/Depth Deep Body Position Sidelying L/S and glutes Mobilization Type Sustained Pressure,Trigger Point Release Intensity/Depth Moderate Body Position Sidelying PT-OP-R Modalities Start: 11/28/18 17:41 Freq: Status: Active Protocol: Document 05/21/20 11:20 DCW (Rec: 05/21/20 12:01 DCW [id number]) Hot Pack/Cold Pack Treatment Hot Pack Location low back Patient Position Hooklying Treatment Duration (minutes) 10 Patient Tolerance Good PT-OP-T Assessment and Plan Start: 11/28/18 17:41 Freq: Status: Active Protocol: Document 05/21/20 11:20 DCW (Rec: 05/21/20 12:01 DCW [id number]) Physical Therapy Assessment Impairments Impairments Activity Tolerance,Balance, Functional Activities, Functional Mobility,Pain,ROM, Soft Tissue Mobility,Strength, Vestibular Goals L hip discomfort Impairment difficulty lifting her L LE in and out of the car Correction Goal (LTG) pt will be able to lift her L LE in and out of the during car transfer LTG Duration 10 weeks stair climbing Impairment pt using R rail for stair climbing Correction Goal (LTG) pt will be able to improve strength and balance to climb stairs without UE support LTG Duration 10 weeks Four Impairment Core and hip weakness Short Term Goal (STG) Pt to demonstrate increased hip abduction bilaterally to 4 +/5 STG Duration 02/06/20 - Improving Cruise Counselor Goal (LTG) Goal Met:Pt to exhibit core/ TrA MMT 4-/5 Advance to 4+/5 LTG Duration 03/07/20 - Improving Three Impairment Pt has not been able to swim for two years Short Term Goal (STG) cont to progress 10/20 pt has not able to use pool d/ t limited access from coronavirus phase reopening protocol Cruise Counselor Goal (LTG) Pt to return to community pool independently for exercise with no increased back pain LTG Duration 03/07/20 Two Impairment Pt only able to walk <one square block due to pain Short Term Goal (STG) 10/20 pt stated she is able to amb for 10-15 mins without break Pt to ambulate 1/2 mile with no increased pain STG Duration 02/06/20 - Improving Correction Goal (LTG) 03/16/19 Pt is currently doing 1500- 2000 steps daily. Pt to ambulate 2827-2836 steps daily to improve her activity tolerance. LTG Duration 12 weeks One Impairment Pt does not have an appropriate home exercise program Short Term Goal (STG) 10/20 goal met Pt to be independent and compliant with an appropriate HEP STG Duration Met Assessment Summary Assessment Pt clearly very fatigued today , limited participation in activity. Physical Therapy Plan Frequency and Duration Frequency of Treatment 2x/Week Duration of Treatment 10 weeks Plan of Care Start Date 03/24/20 Plan of Care End Date 06/07/20 Therapeutic Interventions Therapeutic Interventions Aquatic Therapy,Balance Training,Gait Training,Home Exercise Program,Joint Mobilizations,Manual Therapy, Neuromuscular Re-education, Patient/Caregiver Education, Self-Care/Home Management,Soft Tissue Mobilization,Taping, Therapeutic Activities, Therapeutic Exercises Modalities Cold Pack/Ice Massage,Electric Stimulation,Hot Packs, Infrared Therapy,Iontophoresis ,Ultrasound Next Visit Focus/Plan Next Note Type Treatment Note Next Visit Plan 2/6MWT cont hip mobility, pelvic tilt flexion based ex. Isolated lumbar movements
--- NOTE | 2020-05-28 11:21 | PT-IP ANOTE ---
pt came in today and appeared to be very fatigue and drowsy. Pt stated she had her 1st COVID19 vaccination shot and dialysis yesterday and does not feel good today. Discussed with pt that she should cancel this appt since its reassessment day which requires her to complete walking test. Rescheduled her visit to next week.
--- NOTE | 2020-06-11 11:36 | PT.OPPOC ---
Physical, Occupational & Speech Therapy At [facility] Current Diagnoses Polyneuropathy, unspecified (06/11/20) Benign paroxysmal vertigo, left ear (06/11/20) Pain in right hip (06/11/20) Pain in left hip (06/11/20) Stiffness of right hip, not elsewhere classified (06/11/20) Stiffness of left hip, not elsewhere classified (06/11/20) Spondylolisthesis, lumbar region (06/11/20) Spondylosis without myelopathy or radiculopathy, lumbosacral region (06/11/20) Other intervertebral disc displacement, lumbar region (06/11/20) Muscle weakness (generalized) (06/11/20) Visit Care Team Role Provider Type Jorge L Dietz MD Primary Care Provider Physician Specialty: Family Practice Address: [address] [place] [address], [facility] Email: [email or web address] MIRACLE Arriaza Attending Provider Non-Staff Specialty: Family Practice Address: [address] [place] [address], [facility] Email: Plan Of Care PT-OP-T Assessment and Plan Start: 11/28/18 17:41 Freq: Status: Active Protocol: Document 06/11/20 09:38 HH (Rec: 06/11/20 11:36 HH [id number]) Physical Therapy Assessment Goals L hip discomfort Impairment difficulty lifting her L LE in and out of the car Retirement Goal (LTG) pt will be able to lift her L LE in and out of the during car transfer LTG Duration 10 weeks stair climbing Impairment pt using R rail for stair climbing Retirement Goal (LTG) discontinue 06/11 pt will be able to improve strength and balance to climb stairs without UE support LTG Duration 10 weeks Four Impairment Core and hip weakness Short Term Goal (STG) Pt to demonstrate increased hip abduction bilaterally to 4 +/5 STG Duration 02/06/20 - Improving Podiatry Doctor Goal (LTG) Goal Met:Pt to exhibit core/ TrA MMT 4-/5 Advance to 4+/5 LTG Duration 03/07/20 - Improving Three Impairment Pt has not been able to swim for two years Short Term Goal (STG) cont to progress [place] is currently in phase 3 reopening. Retirement Goal (LTG) Pt will return to community pool and strength and balance class independently for exercise with no increased back pain LTG Duration 07/11/20 Two Impairment Pt only able to walk <one square block due to pain STG Duration 02/06/20 - Improving Retirement Goal (LTG) 06/11/20 Pt is currently doing 1500- 2000 steps daily. Pt to ambulate [id number] steps daily to improve her activity tolerance. LTG Duration 12 weeks Progress Towards Goals Progress Towards Goals Slow Progress due to Activity Tolerance,Slow Progress due to Attendance Issues,Slow Progress due to Medical Issues Assessment Summary Assessment Pt cont to feel fatigue today and her overall progress has plateaued for a period of time . However, [place] state is currently on phase 3 for economy reopening. This PT educated pt to participate the pool program and strength and balance classe at [facility] which allows her to maintain her mobility and strength. Pt agreed and will participate 1 more month of PT while transitioning to their fitness program. Physical Therapy Plan Frequency and Duration Frequency of Treatment 1x/Week Duration of Treatment 4 weeks Plan of Care Start Date 06/11/20 Plan of Care End Date 07/11/20 Next Visit Focus/Plan Next Note Type Treatment Note Next Visit Plan stepper, leg press, trunk ROM, balance ex. Plan of Care Dates Plan of Care Start Date 06/11/20 Plan of Care End Date 07/11/20 Electronically Signed by: Sowmya Bee PT 06/11/20 [id number] Please Sign and Return: I have reviewed this Plan of Care and certify that the skilled therapy services above are required to meet the patient?s needs. Physician Signature Date Printed Name and Credentials Clinical Instructor Signature Printed Name and Credentials
--- NOTE | 2020-06-11 11:36 | PT.OTN ---
Current Diagnoses Polyneuropathy, unspecified (06/11/20) Benign paroxysmal vertigo, left ear (06/11/20) Pain in right hip (06/11/20) Pain in left hip (06/11/20) Stiffness of right hip, not elsewhere classified (06/11/20) Stiffness of left hip, not elsewhere classified (06/11/20) Spondylolisthesis, lumbar region (06/11/20) Spondylosis without myelopathy or radiculopathy, lumbosacral region (06/11/20) Other intervertebral disc displacement, lumbar region (06/11/20) Muscle weakness (generalized) (06/11/20) Physical Therapy Treatment Note PT-OP-A Visit Information Start: 11/28/18 17:41 Freq: Status: Active Protocol: Document 06/11/20 09:38 HH (Rec: 06/11/20 11:36 HH [id number]) Out-Patient Physical Therapy Visit Information Visit Information Visit Type Treatment Note Visit Start Time 10:30 Visit Stop Time 12:06 Total Visit Minutes 51 Visit Number [id number] Number of MANAGER LABOR DELIVERY Visits 0 PT-OP-B Current Condition Start: 11/28/18 17:41 Freq: Status: Active Protocol: Document 04/30/19 12:00 DCW (Rec: 04/30/19 17:55 DCW [id number]) Current Condition History of Current Condition Onset Date Two years Current Complaints Worsening back pain History of Current Condition Pt is a 78 year old female presenting with progressive low back pain. Pt notes she has had lumbar issues off and on for 20 years, but that six years ago, she was caring for her life partner, who was going through an illness at the time, and strained her back. It has been bad since then, and specifically worsening over the last two years. Additionally, pt notes that she pulled something on Monday in her left posterior hip, which has been causing even more pain and difficulty in her getting around. Pt notes that if she is sitting or lying down, she doesn't feel too bad, but if she stays in a position too samir, she has a large increase in pain when she tries to get up and move around. Pt feels like she has substantially decreased in her level of activity tolerance and overall fitness level. Pt reports that she tries to walk one block every day, and frequently is unable to do so. Pt also has in the past swam 3x/week, and now has not been to the pool in two years. ADDENDUM 04/30/19: Pt has a new referral for eval/treat of ongoing dizziness. Pt notes that dizziness occurs in episodes lasting seconds, and is brought on by lying back in bed or bending over to harness the dog. 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 The most prominent level of degenerative change is L3-L4, where there is a left lateral recess disc extrusion, with associated moderate to severe central canal narrowing. Moderate to severe bilateral neural foraminal narrowing is also seen at this level. Impression taken from Objective history of pt note from MIRACLE Arriaza on Prior Functional Status Baseline Function- ADL's Independent Baseline Function- Mobility Independent Baseline Function- Gait Walk multiple miles downtown Baseline Function- Recreation/Hobbies Swimming at community pool Current Functional Impairments (Reported) Functional Limitations- Mobility/Gait Pt unable to walk more than one block Functional Limitations- Recreation/ Pt has not gone to pool in [place] past two years. PT-OP-C Subjective Start: 11/28/18 17:41 Freq: Status: Active Protocol: Document 06/11/20 09:38 HH (Rec: 06/11/20 11:36 HH [id number]) OP-PT Subjective Patient Comments Patient Comments I have some leg cramps. I dont have much energy today. PT-OP-F Manual Assessment Start: 11/28/18 17:41 Freq: Status: Active Protocol: Document 01/06/20 13:45 DCW (Rec: 01/06/20 14:07 DCW [id number]) Manual Assessments Soft Tissue Assessment Soft Tissue Mobility Assessment Moderate tone and tenderness to palpation 2/:Pain with wincing: bilateral QL, bilateral piriformis PT-OP-K Range of Motion Start: 11/28/18 17:41 Freq: Status: Active Protocol: Document 01/06/20 13:45 DCW (Rec: 01/06/20 14:07 DCW [id number]) Lumbar Spine Range of Motion Lumbar Spine Active Degrees Testing Position Standing Flexion 64 Extension 15 Lateral Flexion Left 60 Lateral Flexion Right 59 ROM Limitations Muscle Weakness,Pain PT-OP-L Special Tests Start: 11/28/18 17:41 Freq: Status: Active Protocol: Document 01/06/20 13:45 DCW (Rec: 01/06/20 14:07 DCW [id number]) Special Tests Lumbar Spine Special Tests Manual Traction Test Results Improves symptoms Compression Test Results Improves symptoms Hip Special Tests Piriformis Test Results B tenderness at Piriformis PARAS Test Results Positive left ipsilateral lateral hip pain PT-OP-M Strength Start: 11/28/18 17:41 Freq: Status: Active Protocol: Document 01/06/20 13:45 DCW (Rec: 01/06/20 14:07 DCW [id number]) Trunk Strength Trunk Manual Muscle Testing Core Stabilization Pt able to properly contract TrA with verbal cues, holds SLR for 10 seconds MMT: 4/5 Hip Strength Hip Manual Muscle Testing Right Flexion (L2) 4+ Good+ Abduction 4 Good Adduction 4 Good External Rotation 5 Normal Internal Rotation 5 Normal Left Flexion (L2) 4 Good Abduction 4 Good Adduction 4 Good External Rotation 5 Normal Internal Rotation 5 Normal Knee Strength Knee Manual Muscle Testing Right Flexion (S2) 4+ Good+ Extension (L3) 5 Normal Left Flexion (S2) 4+ Good+ Extension (L3) 5 Normal Ankle/Foot Strength Ankle and Foot Manual Muscle Testing Right Dorsiflexion (L4) 4+ Good+ Plantarflexion (S1) 4 Good Left Dorsiflexion (L4) 4+ Good+ Plantarflexion (S1) 4 Good PT-OP-O Vestibular Start: 04/30/19 17:56 Freq: Status: Active Protocol: Document 04/30/19 12:00 DCW (Rec: 05/01/19 09:44 DCW [id number]) Vestibular Assessment Visual Testing Smooth Pursuits Horizontal Questionable saccadic movement when following left Smooth Pursuits Vertical WNL Saccades Horizontal WNL Positional Testing [place]-Hallpike Negative Left,Negative Right Rolling Test Positive Left,Positive Right,> 60 Seconds Comments Vestibular Comments Ageotropic nystagmus with roll test, continued entire time pt was positioned PT-OP-Q Treatments Start: 11/28/18 17:41 Freq: Status: Active Protocol: Document 06/11/20 09:38 HH (Rec: 06/11/20 11:36 HH [id number]) Cardio Equipment Recumbent Stepper (Sci-Fit) Duration (Minutes) 10 Resistance 2.0 Seat Position 9 Gym Equipment Shuttle Recovery Bilateral Squats Resistance 75# Reps/Time 15 x3 Manual Therapy Treatment Soft Tissue Mobilization Piriformis Body Location R Piriformis Mobilization Type Strumming,Sustained Pressure Intensity/Depth Deep Body Position Sidelying Self-Care/Home Management Treatment Education Patient Education Home Exercise Program,Pain Management Other Education educated pt to participate the pool program and strength and balance classe at [facility] which allows her to maintain her mobility and strength. PT-OP-R Modalities Start: 11/28/18 17:41 Freq: Status: Active Protocol: Document 06/11/20 09:38 HH (Rec: 06/11/20 11:36 HH [id number]) Hot Pack/Cold Pack Treatment Hot Pack Location low back Patient Position Hooklying Treatment Duration (minutes) 10 Patient Tolerance Good PT-OP-T Assessment and Plan Start: 11/28/18 17:41 Freq: Status: Active Protocol: Document 06/11/20 09:38 HH (Rec: 06/11/20 11:36 HH [id number]) Physical Therapy Assessment Goals L hip discomfort Impairment difficulty lifting her L LE in and out of the car Care Home Goal (LTG) pt will be able to lift her L LE in and out of the during car transfer LTG Duration 10 weeks stair climbing Impairment pt using R rail for stair climbing Care Home Goal (LTG) discontinue 06/11 pt will be able to improve strength and balance to climb stairs without UE support LTG Duration 10 weeks Four Impairment Core and hip weakness Short Term Goal (STG) Pt to demonstrate increased hip abduction bilaterally to 4 +/5 STG Duration 02/06/20 - Improving Livestock Judging Coach Goal (LTG) Goal Met:Pt to exhibit core/ TrA MMT 4-/5 Advance to 4+/5 LTG Duration 03/07/20 - Improving Three Impairment Pt has not been able to swim for two years Short Term Goal (STG) cont to progress [place] is currently in phase 3 reopening. Care Home Goal (LTG) Pt will return to community pool and strength and balance class independently for exercise with no increased back pain LTG Duration 07/11/20 Two Impairment Pt only able to walk <one square block due to pain STG Duration 02/06/20 - Improving Livestock Judging Coach Goal (LTG) 06/11/20 Pt is currently doing 1500- 2000 steps daily. Pt to ambulate [id number] steps daily to improve her activity tolerance. LTG Duration 12 weeks Progress Towards Goals Progress Towards Goals Slow Progress due to Activity Tolerance,Slow Progress due to Attendance Issues,Slow Progress due to Medical Issues Assessment Summary Assessment Pt cont to feel fatigue today and her overall progress has plateaued for a period of time . However, [facility] is currently on phase 3 for economy reopening. This PT educated pt to participate the pool program and strength and balance classe at [facility] which allows her to maintain her mobility and strength. Pt agreed and will participate 1 more month of PT while transitioning to their fitness program. Physical Therapy Plan Frequency and Duration Frequency of Treatment 1x/Week Duration of Treatment 4 weeks Plan of Care Start Date 06/11/20 Plan of Care End Date 07/11/20 Next Visit Focus/Plan Next Note Type Treatment Note Next Visit Plan stepper, leg press, trunk ROM, balance ex.
--- NOTE | 2020-06-15 10:28 | PT.OTN ---
Current Diagnoses Polyneuropathy, unspecified (06/15/20) Benign paroxysmal vertigo, left ear (06/15/20) Pain in right hip (06/15/20) Pain in left hip (06/15/20) Stiffness of right hip, not elsewhere classified (06/15/20) Stiffness of left hip, not elsewhere classified (06/15/20) Spondylolisthesis, lumbar region (06/15/20) Spondylosis without myelopathy or radiculopathy, lumbosacral region (06/15/20) Other intervertebral disc displacement, lumbar region (06/15/20) Muscle weakness (generalized) (06/15/20) Physical Therapy Treatment Note PT-OP-A Visit Information Start: 11/28/18 17:41 Freq: Status: Active Protocol: Document 06/15/20 09:47 HH (Rec: 06/15/20 10:27 HH [id number]) Out-Patient Physical Therapy Visit Information Visit Information Visit Type Treatment Note Visit Start Time 10:30 Visit Stop Time 12:10 Total Visit Minutes 50 Visit Number [id number] Number of RADIOSONDE OPERATOR Visits 0 PT-OP-B Current Condition Start: 11/28/18 17:41 Freq: Status: Active Protocol: Document 04/30/19 12:00 DCW (Rec: 04/30/19 17:55 DCW [id number]) Current Condition History of Current Condition Onset Date Two years Current Complaints Worsening back pain History of Current Condition Pt is a 78 year old female presenting with progressive low back pain. Pt notes she has had lumbar issues off and on for 20 years, but that six years ago, she was caring for her life partner, who was going through an illness at the time, and strained her back. It has been bad since then, and specifically worsening over the last two years. Additionally, pt notes that she pulled something on Monday in her left posterior hip, which has been causing even more pain and difficulty in her getting around. Pt notes that if she is sitting or lying down, she doesn't feel too bad, but if she stays in a position too samir, she has a large increase in pain when she tries to get up and move around. Pt feels like she has substantially decreased in her level of activity tolerance and overall fitness level. Pt reports that she tries to walk one block every day, and frequently is unable to do so. Pt also has in the past swam 3x/week, and now has not been to the pool in two years. ADDENDUM 04/30/19: Pt has a new referral for eval/treat of ongoing dizziness. Pt notes that dizziness occurs in episodes lasting seconds, and is brought on by lying back in bed or bending over to harness the dog. 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 The most prominent level of degenerative change is L3-L4, where there is a left lateral recess disc extrusion, with associated moderate to severe central canal narrowing. Moderate to severe bilateral neural foraminal narrowing is also seen at this level. Impression taken from Objective history of pt note from [facility]IRAC[facility] Arriaza on Prior Functional Status Baseline Function- ADL's Independent Baseline Function- Mobility Independent Baseline Function- Gait Walk multiple miles downtown Baseline Function- Recreation/Hobbies Swimming at community pool Current Functional Impairments (Reported) Functional Limitations- Mobility/Gait Pt unable to walk more than one block Functional Limitations- Recreation/ Pt has not gone to pool in [place] past two years. PT-OP-C Subjective Start: 11/28/18 17:41 Freq: Status: Active Protocol: Document 06/15/20 09:47 HH (Rec: 06/15/20 10:27 HH [id number]) OP-PT Subjective Patient Comments Patient Comments I feel pretty good today probably because this session is before dialysis. PT-OP-F Manual Assessment Start: 11/28/18 17:41 Freq: Status: Active Protocol: Document 01/06/20 13:45 DCW (Rec: 01/06/20 14:07 DCW [id number]) Manual Assessments Soft Tissue Assessment Soft Tissue Mobility Assessment Moderate tone and tenderness to palpation 2/4:Pain with wincing: bilateral QL, bilateral piriformis PT-OP-K Range of Motion Start: 11/28/18 17:41 Freq: Status: Active Protocol: Document 01/06/20 13:45 DCW (Rec: 01/06/20 14:07 DCW [id number]) Lumbar Spine Range of Motion Lumbar Spine Active Degrees Testing Position Standing Flexion 64 Extension 15 Lateral Flexion Left 60 Lateral Flexion Right 59 ROM Limitations Muscle Weakness,Pain PT-OP-L Special Tests Start: 11/28/18 17:41 Freq: Status: Active Protocol: Document 01/06/20 13:45 DCW (Rec: 01/06/20 14:07 DCW [id number]) Special Tests Lumbar Spine Special Tests Manual Traction Test Results Improves symptoms Compression Test Results Improves symptoms Hip Special Tests Piriformis Test Results B tenderness at Piriformis PARAS Test Results Positive left ipsilateral lateral hip pain PT-OP-M Strength Start: 11/28/18 17:41 Freq: Status: Active Protocol: Document 01/06/20 13:45 DCW (Rec: 01/06/20 14:07 DCW [id number]) Trunk Strength Trunk Manual Muscle Testing Core Stabilization Pt able to properly contract TrA with verbal cues, holds SLR for 10 seconds MMT: 4/5 Hip Strength Hip Manual Muscle Testing Right Flexion (L2) 4+ Good+ Abduction 4 Good Adduction 4 Good External Rotation 5 Normal Internal Rotation 5 Normal Left Flexion (L2) 4 Good Abduction 4 Good Adduction 4 Good External Rotation 5 Normal Internal Rotation 5 Normal Knee Strength Knee Manual Muscle Testing Right Flexion (S2) 4+ Good+ Extension (L3) 5 Normal Left Flexion (S2) 4+ Good+ Extension (L3) 5 Normal Ankle/Foot Strength Ankle and Foot Manual Muscle Testing Right Dorsiflexion (L4) 4+ Good+ Plantarflexion (S1) 4 Good Left Dorsiflexion (L4) 4+ Good+ Plantarflexion (S1) 4 Good PT-OP-O Vestibular Start: 04/30/19 17:56 Freq: Status: Active Protocol: Document 04/30/19 12:00 DCW (Rec: 05/01/19 09:44 DCW [id number]) Vestibular Assessment Visual Testing Smooth Pursuits Horizontal Questionable saccadic movement when following left Smooth Pursuits Vertical WNL Saccades Horizontal WNL Positional Testing [place]-Hallpike Negative Left,Negative Right Rolling Test Positive Left,Positive Right,> 60 Seconds Comments Vestibular Comments Ageotropic nystagmus with roll test, continued entire time pt was positioned PT-OP-Q Treatments Start: 11/28/18 17:41 Freq: Status: Active Protocol: Document 06/15/20 09:47 HH (Rec: 06/15/20 10:27 HH [id number]) Cardio Equipment Recumbent Stepper (Sci-Fit) Duration (Minutes) 8 Resistance 2.5 Seat Position 10 Other 1.07 mile Gym Equipment Shuttle Recovery Unilateral Squats Resistance 50# Reps/Time 10 x2 Bilateral Squats Resistance 75# Reps/Time 15 x3 Therapeutic Exercises Sitting Exercises floor touch Side bilateral Reps/Minutes 8 reps Comments no pain noted. Standing Exercises squat Side bilateral Reps/Minutes 10 x2 Comments for HEP calf raises Side bilateral Reps/Minutes 10x2 Comments for HEP side steps Reps/Minutes 10 x2 step up Equipment Used R rail Reps/Minutes 10 x 2 Comments for HEP PT-OP-R Modalities Start: 11/28/18 17:41 Freq: Status: Active Protocol: Document 06/15/20 09:47 HH (Rec: 06/15/20 10:27 [id number]) Hot Pack/Cold Pack Treatment Hot Pack Location low back Patient Position Hooklying Treatment Duration (minutes) 10 Patient Tolerance Good PT-OP-T Assessment and Plan Start: 11/28/18 17:41 Freq: Status: Active Protocol: Document 06/15/20 09:47 HH (Rec: 06/15/20 10:27 [id number]) Physical Therapy Assessment Goals L hip discomfort Impairment difficulty lifting her L LE in and out of the car Senior Living Goal (LTG) pt will be able to lift her L LE in and out of the during car transfer LTG Duration 10 weeks stair climbing Impairment pt using R rail for stair climbing Seam Hammerer Goal (LTG) discontinue 06/11 pt will be able to improve strength and balance to climb stairs without UE support LTG Duration 10 weeks 2 MWT Impairment will assess next visit Five Impairment Positive Roll test [facility] Goal (LTG) Pt to exhibit negative positional testing bilaterally LTG Duration 08/24/19 Four Impairment Core and hip weakness Short Term Goal (STG) Pt to demonstrate increased hip abduction bilaterally to 4 +/5 STG Duration 02/06/20 - Improving Seam Hammerer Goal (LTG) Goal Met:Pt to exhibit core/ TrA MMT 4-/5 Advance to 4+/5 LTG Duration 03/07/20 - Improving Three Impairment Pt has not been able to swim for two years Short Term Goal (STG) cont to progress [place] is currently in phase 3 reopening. Senior Living Goal (LTG) Pt will return to community pool and strength and balance class independently for exercise with no increased back pain LTG Duration 07/11/20 Two Impairment Pt only able to walk <one square block due to pain STG Duration 02/06/20 - Improving Seam Hammerer Goal (LTG) 06/11/20 Pt is currently doing 1500- 2000 steps daily. Pt to ambulate [id number] steps daily to improve her activity tolerance. LTG Duration 12 weeks One Impairment Pt does not have an appropriate home exercise program Short Term Goal (STG) 10/20 goal met Pt to be independent and compliant with an appropriate HEP STG Duration Met Assessment Summary Assessment Pt kong session well today without much c/o. Provided new HEP for her which includes strengthening ex. Pt will check with [facility] for pool and fitness class schedule today. Physical Therapy Plan Frequency and Duration Frequency of Treatment 1x/Week Duration of Treatment 4 weeks Plan of Care Start Date 06/11/20 Plan of Care End Date 07/11/20 Therapeutic Interventions Therapeutic Interventions Aquatic Therapy,Balance Training,Gait Training,Home Exercise Program,Joint Mobilizations,Manual Therapy, Neuromuscular Re-education, Patient/Caregiver Education, Self-Care/Home Management,Soft Tissue Mobilization,Taping, Therapeutic Activities, Therapeutic Exercises Modalities Cold Pack/Ice Massage,Electric Stimulation,Hot Packs, Infrared Therapy,Iontophoresis ,Ultrasound Next Visit Focus/Plan Next Note Type Treatment Note Next Visit Plan stepper, leg press, trunk ROM, balance ex.
--- NOTE | 2020-06-22 16:14 | PT.OTN ---
Current Diagnoses Polyneuropathy, unspecified (06/22/20) Benign paroxysmal vertigo, left ear (06/22/20) Pain in right hip (06/22/20) Pain in left hip (06/22/20) Stiffness of right hip, not elsewhere classified (06/22/20) Stiffness of left hip, not elsewhere classified (06/22/20) Spondylolisthesis, lumbar region (06/22/20) Spondylosis without myelopathy or radiculopathy, lumbosacral region (06/22/20) Other intervertebral disc displacement, lumbar region (06/22/20) Muscle weakness (generalized) (06/22/20) Physical Therapy Treatment Note PT-OP-A Visit Information Start: 11/28/18 17:41 Freq: Status: Active Protocol: Document 06/22/20 14:26 HH (Rec: 06/22/20 16:14 HH [id number]) Out-Patient Physical Therapy Visit Information Visit Information Visit Type Treatment Note Visit Note pt requested to leave d/t dialysis. Visit Start Time 14:30 Visit Stop Time 15:10 Total Visit Minutes 40 Visit Number 79 Number of KENO MANAGER Visits 0 PT-OP-B Current Condition Start: 11/28/18 17:41 Freq: Status: Active Protocol: Document 04/30/19 12:00 DCW (Rec: 04/30/19 17:55 DCW [id number]) Current Condition History of Current Condition Onset Date Two years Current Complaints Worsening back pain History of Current Condition Pt is a 78 year old female presenting with progressive low back pain. Pt notes she has had lumbar issues off and on for 20 years, but that six years ago, she was caring for her life partner, who was going through an illness at the time, and strained her back. It has been bad since then, and specifically worsening over the last two years. Additionally, pt notes that she pulled something on Monday in her left posterior hip, which has been causing even more pain and difficulty in her getting around. Pt notes that if she is sitting or lying down, she doesn't feel too bad, but if she stays in a position too samir, she has a large increase in pain when she tries to get up and move around. Pt feels like she has substantially decreased in her level of activity tolerance and overall fitness level. Pt reports that she tries to walk one block every day, and frequently is unable to do so. Pt also has in the past swam 3x/week, and now has not been to the pool in two years. ADDENDUM 04/30/19: Pt has a new referral for eval/treat of ongoing dizziness. Pt notes that dizziness occurs in episodes lasting seconds, and is brought on by lying back in bed or bending over to harness the dog. 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 The most prominent level of degenerative change is L3-L4, where there is a left lateral recess disc extrusion, with associated moderate to severe central canal narrowing. Moderate to severe bilateral neural foraminal narrowing is also seen at this level. Impression taken from Objective history of pt note from MIRACLE Arriaza on Prior Functional Status Baseline Function- ADL's Independent Baseline Function- Mobility Independent Baseline Function- Gait Walk multiple miles downtown Baseline Function- Recreation/Hobbies Swimming at [facility] pool Current Functional Impairments (Reported) Functional Limitations- Mobility/Gait Pt unable to walk more than one block Functional Limitations- Recreation/ Pt has not gone to pool in [place] past two years. PT-OP-C Subjective Start: 11/28/18 17:41 Freq: Status: Active Protocol: Document 06/22/20 14:26 HH (Rec: 06/22/20 16:14 HH [id number]) OP-PT Subjective Patient Comments Patient Comments Im doing okay so far and i checked the pool and fitness schedules. Im going to sign up for both. PT-OP-F Manual Assessment Start: 11/28/18 17:41 Freq: Status: Active Protocol: Document 01/06/20 13:45 DCW (Rec: 01/06/20 14:07 DCW [id number]) Manual Assessments Soft Tissue Assessment Soft Tissue Mobility Assessment Moderate tone and tenderness to palpation 2/4:Pain with wincing: bilateral QL, bilateral piriformis PT-OP-K Range of Motion Start: 11/28/18 17:41 Freq: Status: Active Protocol: Document 01/06/20 13:45 DCW (Rec: 01/06/20 14:07 DCW [id number]) Lumbar Spine Range of Motion Lumbar Spine Active Degrees Testing Position Standing Flexion 64 Extension 15 Lateral Flexion Left 60 Lateral Flexion Right 59 ROM Limitations Muscle Weakness,Pain PT-OP-L Special Tests Start: 11/28/18 17:41 Freq: Status: Active Protocol: Document 01/06/20 13:45 DCW (Rec: 01/06/20 14:07 DCW [id number]) Special Tests Lumbar Spine Special Tests Manual Traction Test Results Improves symptoms Compression Test Results Improves symptoms Hip Special Tests Piriformis Test Results B tenderness at Piriformis PARAS Test Results Positive left ipsilateral lateral hip pain PT-OP-M Strength Start: 11/28/18 17:41 Freq: Status: Active Protocol: Document 01/06/20 13:45 DCW (Rec: 01/06/20 14:07 DCW [id number]) Trunk Strength Trunk Manual Muscle Testing Core Stabilization Pt able to properly contract TrA with verbal cues, holds SLR for 10 seconds MMT: 4/5 Hip Strength Hip Manual Muscle Testing Right Flexion (L2) 4+ Good+ Abduction 4 Good Adduction 4 Good External Rotation 5 Normal Internal Rotation 5 Normal Left Flexion (L2) 4 Good Abduction 4 Good Adduction 4 Good External Rotation 5 Normal Internal Rotation 5 Normal Knee Strength Knee Manual Muscle Testing Right Flexion (S2) 4+ Good+ Extension (L3) 5 Normal Left Flexion (S2) 4+ Good+ Extension (L3) 5 Normal Ankle/Foot Strength Ankle and Foot Manual Muscle Testing Right Dorsiflexion (L4) 4+ Good+ Plantarflexion (S1) 4 Good Left Dorsiflexion (L4) 4+ Good+ Plantarflexion (S1) 4 Good PT-OP-O Vestibular Start: 04/30/19 17:56 Freq: Status: Active Protocol: Document 04/30/19 12:00 DCW (Rec: 05/01/19 09:44 DCW [id number]) Vestibular Assessment Visual Testing Smooth Pursuits Horizontal Questionable saccadic movement when following left Smooth Pursuits Vertical WNL Saccades Horizontal WNL Positional Testing [place]-Hallpike Negative Left,Negative Right Rolling Test Positive Left,Positive Right,> 60 Seconds Comments Vestibular Comments Ageotropic nystagmus with roll test, continued entire time pt was positioned PT-OP-Q Treatments Start: 11/28/18 17:41 Freq: Status: Active Protocol: Document 06/22/20 14:26 HH (Rec: 06/22/20 16:14 HH [id number]) Cardio Equipment Recumbent Stepper (Sci-Fit) Duration (Minutes) 8 Resistance 2.5 Seat Position 10 Other 1.00 mile Gym Equipment Shuttle Recovery Unilateral Squats Resistance 50# Reps/Time 10 x2 Bilateral Squats Resistance 75# Reps/Time 15 x3 Therapeutic Exercises Standing Exercises squat Side bilateral Reps/Minutes 10 x2 Comments for HEP calf raises Side bilateral Reps/Minutes 10x2 Comments for HEP step up Equipment Used R rail Reps/Minutes 10 x 2 Comments for HEP Manual Therapy Treatment Soft Tissue Mobilization L/S and glutes Mobilization Type Sustained Pressure,Trigger Point Release Intensity/Depth Moderate Body Position Sidelying PT-OP-R Modalities Start: 11/28/18 17:41 Freq: Status: Active Protocol: Document 06/15/20 09:47 HH (Rec: 06/15/20 10:27 HH [id number]) Hot Pack/Cold Pack Treatment Hot Pack Location low back Patient Position Hooklying Treatment Duration (minutes) 10 Patient Tolerance Good PT-OP-T Assessment and Plan Start: 11/28/18 17:41 Freq: Status: Active Protocol: Document 06/22/20 14:26 HH (Rec: 06/22/20 16:14 HH [id number]) Physical Therapy Assessment Goals L hip discomfort Impairment difficulty lifting her L LE in and out of the car Senior Risk Analyst Goal (LTG) pt will be able to lift her L LE in and out of the during car transfer LTG Duration 10 weeks stair climbing Impairment pt using R rail for stair climbing Long-Term Goal (LTG) discontinue 06/11 pt will be able to improve strength and balance to climb stairs without UE support LTG Duration 10 weeks 2 MWT Impairment will assess next visit Five Impairment Positive Roll test Long-Term Goal (LTG) Pt to exhibit negative positional testing bilaterally LTG Duration 08/24/19 Four Impairment Core and hip weakness Short Term Goal (STG) Pt to demonstrate increased hip abduction bilaterally to 4 +/5 STG Duration 02/06/20 - Improving Senior Risk Analyst Goal (LTG) Goal Met:Pt to exhibit core/ TrA MMT 4-/5 Advance to 4+/5 LTG Duration 03/07/20 - Improving Three Impairment Pt has not been able to swim for two years Short Term Goal (STG) cont to progress [place] is currently in phase 3 reopening. Senior Risk Analyst Goal (LTG) Pt will return to community pool and strength and balance class independently for exercise with no increased back pain LTG Duration 07/11/20 Two Impairment Pt only able to walk <one square block due to pain STG Duration 02/06/20 - Improving Long-Term Goal (LTG) 06/11/20 Pt is currently doing 1500- 2000 steps daily. Pt to ambulate [id number] steps daily to improve her activity tolerance. LTG Duration 12 weeks One Impairment Pt does not have an appropriate home exercise program Short Term Goal (STG) 10/20 goal met Pt to be independent and compliant with an appropriate HEP Assessment Summary Assessment pt is doing good today with good endurance and strength. She is actively gathering details of pool program and fitness class at [facility] . Physical Therapy Plan Frequency and Duration Frequency of Treatment 1x/Week Duration of Treatment 4 weeks Plan of Care Start Date 06/11/20 Plan of Care End Date 07/11/20 Next Visit Focus/Plan Next Note Type Treatment Note Next Visit Plan stepper, leg press, trunk ROM, balance ex.
--- NOTE | 2020-07-02 12:51 | PT.OTN ---
Current Diagnoses Polyneuropathy, unspecified (07/02/20) Benign paroxysmal vertigo, left ear (07/02/20) Pain in right hip (07/02/20) Pain in left hip (07/02/20) Stiffness of right hip, not elsewhere classified (07/02/20) Stiffness of left hip, not elsewhere classified (07/02/20) Spondylolisthesis, lumbar region (07/02/20) Spondylosis without myelopathy or radiculopathy, lumbosacral region (07/02/20) Other intervertebral disc displacement, lumbar region (07/02/20) Muscle weakness (generalized) (07/02/20) Physical Therapy Treatment Note PT-OP-A Visit Information Start: 11/28/18 17:41 Freq: Status: Active Protocol: Document 07/02/20 12:00 DCW (Rec: 07/02/20 12:50 DCW [id number]) Out-Patient Physical Therapy Visit Information Visit Information Visit Type Treatment Note Visit Start Time 12:00 Visit Stop Time 12:55 Total Visit Minutes 55 Visit Number 80 Number of FLEET MAINTENANCE MANAGER Visits 0 PT-OP-B Current Condition Start: 11/28/18 17:41 Freq: Status: Active Protocol: Document 04/30/19 12:00 DCW (Rec: 04/30/19 17:55 DCW [id number]) Current Condition History of Current Condition Onset Date Two years Current Complaints Worsening back pain History of Current Condition Pt is a 78 year old female presenting with progressive low back pain. Pt notes she has had lumbar issues off and on for 20 years, but that six years ago, she was caring for her life partner, who was going through an illness at the time, and strained her back. It has been bad since then, and specifically worsening over the last two years. Additionally, pt notes that she pulled something on Monday in her left posterior hip, which has been causing even more pain and difficulty in her getting around. Pt notes that if she is sitting or lying down, she doesn't feel too bad, but if she stays in a position too samir, she has a large increase in pain when she tries to get up and move around. Pt feels like she has substantially decreased in her level of activity tolerance and overall fitness level. Pt reports that she tries to walk one block every day, and frequently is unable to do so. Pt also has in the past swam 3x/week, and now has not been to the pool in two years. ADDENDUM 04/30/19: Pt has a new referral for eval/treat of ongoing dizziness. Pt notes that dizziness occurs in episodes lasting seconds, and is brought on by lying back in bed or bending over to harness the dog. 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 The most prominent level of degenerative change is L3-L4, where there is a left lateral recess disc extrusion, with associated moderate to severe central canal narrowing. Moderate to severe bilateral neural foraminal narrowing is also seen at this level. Impression taken from Objective history of pt note from MIRACLE Arriaza on Prior Functional Status Baseline Function- ADL's Independent Baseline Function- Mobility Independent Baseline Function- Gait Walk multiple miles downtown Baseline Function- Recreation/Hobbies Swimming at community pool Current Functional Impairments (Reported) Functional Limitations- Mobility/Gait Pt unable to walk more than one block Functional Limitations- Recreation/ Pt has not gone to pool in [place] past two years. PT-OP-C Subjective Start: 11/28/18 17:41 Freq: Status: Active Protocol: Document 07/02/20 12:00 DCW (Rec: 07/02/20 12:50 DCW [id number]) OP-PT Subjective Patient Comments Patient Comments Pt reports that she was lousy yesterday during dialysis, had her blood pressure spike up to 200+ systolic. PT-OP-F Manual Assessment Start: 11/28/18 17:41 Freq: Status: Active Protocol: Document 01/06/20 13:45 DCW (Rec: 01/06/20 14:07 DCW [id number]) Manual Assessments Soft Tissue Assessment Soft Tissue Mobility Assessment Moderate tone and tenderness to palpation 2/4:Pain with wincing: bilateral QL, bilateral piriformis PT-OP-K Range of Motion Start: 11/28/18 17:41 Freq: Status: Active Protocol: Document 01/06/20 13:45 DCW (Rec: 01/06/20 14:07 DCW [id number]) Lumbar Spine Range of Motion Lumbar Spine Active Degrees Testing Position Standing Flexion 64 Extension 15 Lateral Flexion Left 60 Lateral Flexion Right 59 ROM Limitations Muscle Weakness,Pain PT-OP-L Special Tests Start: 11/28/18 17:41 Freq: Status: Active Protocol: Document 01/06/20 13:45 DCW (Rec: 01/06/20 14:07 DCW [id number]) Special Tests Lumbar Spine Special Tests Manual Traction Test Results Improves symptoms Compression Test Results Improves symptoms Hip Special Tests Piriformis Test Results B tenderness at Piriformis PARAS Test Results Positive left ipsilateral lateral hip pain PT-OP-M Strength Start: 11/28/18 17:41 Freq: Status: Active Protocol: Document 01/06/20 13:45 DCW (Rec: 01/06/20 14:07 DCW [id number]) Trunk Strength Trunk Manual Muscle Testing Core Stabilization Pt able to properly contract TrA with verbal cues, holds SLR for 10 seconds MMT: 4/5 Hip Strength Hip Manual Muscle Testing Right Flexion (L2) 4+ Good+ Abduction 4 Good Adduction 4 Good External Rotation 5 Normal Internal Rotation 5 Normal Left Flexion (L2) 4 Good Abduction 4 Good Adduction 4 Good External Rotation 5 Normal Internal Rotation 5 Normal Knee Strength Knee Manual Muscle Testing Right Flexion (S2) 4+ Good+ Extension (L3) 5 Normal Left Flexion (S2) 4+ Good+ Extension (L3) 5 Normal Ankle/Foot Strength Ankle and Foot Manual Muscle Testing Right Dorsiflexion (L4) 4+ Good+ Plantarflexion (S1) 4 Good Left Dorsiflexion (L4) 4+ Good+ Plantarflexion (S1) 4 Good PT-OP-O Vestibular Start: 04/30/19 17:56 Freq: Status: Active Protocol: Document 04/30/19 12:00 DCW (Rec: 05/01/19 09:44 DCW [id number]) Vestibular Assessment Visual Testing Smooth Pursuits Horizontal Questionable saccadic movement when following left Smooth Pursuits Vertical WNL Saccades Horizontal WNL Positional Testing [place]-Hallpike Negative Left,Negative Right Rolling Test Positive Left,Positive Right,> 60 Seconds Comments Vestibular Comments Ageotropic nystagmus with roll test, continued entire time pt was positioned PT-OP-Q Treatments Start: 11/28/18 17:41 Freq: Status: Active Protocol: Document 07/02/20 12:00 DCW (Rec: 07/02/20 12:50 DCW [id number]) Cardio Equipment Recumbent Elliptical (Biodex) Duration (Minutes) 6 Resistance 3 Seat Position 7 Gym Equipment Shuttle Recovery Unilateral Squats Resistance 50# Reps/Time 10 x2 Bilateral Squats Resistance 75#->87# Reps/Time 15 x3 Therapeutic Exercises Standing Exercises hamstring stretch Standing Exercise Name Hamstring step stretch Side bilateral hamstring curls Standing Exercise Name Hamstring curl Side bilateral Resistance 5# calf raises Side bilateral Reps/Minutes 10x2 Comments for HEP step taps Standing Exercise Name Toe-taps Side bilateral Resistance 5# Equipment Used @ rail Extension Standing Exercise Name Hip Extension Resistance 5# Other Exercises sit to stand Other Exercise Name sit to stand Reps/Minutes 8 x2 Comments with hip hinge Manual Therapy Treatment Soft Tissue Mobilization L/S and glutes Mobilization Type Sustained Pressure,Trigger Point Release Intensity/Depth Moderate Body Position Sidelying PT-OP-R Modalities Start: 11/28/18 17:41 Freq: Status: Active Protocol: Document 07/02/20 12:00 DCW (Rec: 07/02/20 12:50 DCW [id number]) Hot Pack/Cold Pack Treatment Hot Pack Location low back Patient Position Hooklying Treatment Duration (minutes) 15 Patient Tolerance Good PT-OP-T Assessment and Plan Start: 11/28/18 17:41 Freq: Status: Active Protocol: Document 07/02/20 12:00 DCW (Rec: 07/02/20 12:50 DCW [id number]) Physical Therapy Assessment Goals L hip discomfort Impairment difficulty lifting her L LE in and out of the car Prison Goal (LTG) pt will be able to lift her L LE in and out of the during car transfer LTG Duration 10 weeks stair climbing Impairment pt using R rail for stair climbing Prison Goal (LTG) discontinue 06/11 pt will be able to improve strength and balance to climb stairs without UE support LTG Duration 10 weeks 2 MWT Impairment will assess next visit Five Impairment Positive Roll test Prison Goal (LTG) Pt to exhibit negative positional testing bilaterally LTG Duration 08/24/19 Four Impairment Core and hip weakness Short Term Goal (STG) Pt to demonstrate increased hip abduction bilaterally to 4 +/5 STG Duration 02/06/20 - Improving Prison Goal (LTG) Goal Met:Pt to exhibit core/ TrA MMT 4-/5 Advance to 4+/5 LTG Duration 03/07/20 - Improving Three Impairment Pt has not been able to swim for two years Short Term Goal (STG) cont to progress [place] is currently in phase 3 reopening. Prison Goal (LTG) Pt will return to community pool and strength and balance class independently for exercise with no increased back pain LTG Duration 07/11/20 Two Impairment Pt only able to walk <one square block due to pain STG Duration 02/06/20 - Improving Fulfillment Associate Goal (LTG) 06/11/20 Pt is currently doing 1500- 2000 steps daily. Pt to ambulate [id number] steps daily to improve her activity tolerance. LTG Duration 12 weeks One Impairment Pt does not have an appropriate home exercise program Short Term Goal (STG) 10/20 goal met Pt to be independent and compliant with an appropriate HEP Assessment Summary Assessment pt said multiple times today that her legs felt like they were moving better and most activities were easier to do. Physical Therapy Plan Frequency and Duration Frequency of Treatment 1x/Week Duration of Treatment 4 weeks Plan of Care Start Date 06/11/20 Plan of Care End Date 07/11/20 Therapeutic Interventions Therapeutic Interventions Aquatic Therapy,Balance Training,Gait Training,Home Exercise Program,Joint Mobilizations,Manual Therapy, Neuromuscular Re-education, Patient/Caregiver Education, Self-Care/Home Management,Soft Tissue Mobilization,Taping, Therapeutic Activities, Therapeutic Exercises Modalities Cold Pack/Ice Massage,Electric Stimulation,Hot Packs, Infrared Therapy,Iontophoresis ,Ultrasound Next Visit Focus/Plan Next Note Type Treatment Note Next Visit Plan stepper, leg press, trunk ROM, balance ex.
--- NOTE | 2020-07-07 12:07 | PT.OTN ---
Current Diagnoses Polyneuropathy, unspecified (07/07/20) Benign paroxysmal vertigo, left ear (07/07/20) Pain in right hip (07/07/20) Pain in left hip (07/07/20) Stiffness of right hip, not elsewhere classified (07/07/20) Stiffness of left hip, not elsewhere classified (07/07/20) Spondylolisthesis, lumbar region (07/07/20) Spondylosis without myelopathy or radiculopathy, lumbosacral region (07/07/20) Other intervertebral disc displacement, lumbar region (07/07/20) Muscle weakness (generalized) (07/07/20) Physical Therapy Treatment Note PT-OP-A Visit Information Start: 11/28/18 17:41 Freq: Status: Active Protocol: Document 07/07/20 11:19 HH (Rec: 07/07/20 12:07 HH [id number]) Out-Patient Physical Therapy Visit Information Visit Information Visit Type Treatment Note Visit Start Time 11:18 Visit Stop Time 12:07 Total Visit Minutes 50 Visit Number 81 Number of INSTRUCTOR PHYSICAL EDUCATION Visits 0 PT-OP-B Current Condition Start: 11/28/18 17:41 Freq: Status: Active Protocol: Document 04/30/19 12:00 DCW (Rec: 04/30/19 17:55 DCW [id number]) Current Condition History of Current Condition Onset Date Two years Current Complaints Worsening back pain History of Current Condition Pt is a 78 year old female presenting with progressive low back pain. Pt notes she has had lumbar issues off and on for 20 years, but that six years ago, she was caring for her life partner, who was going through an illness at the time, and strained her back. It has been bad since then, and specifically worsening over the last two years. Additionally, pt notes that she pulled something on Monday in her left posterior hip, which has been causing even more pain and difficulty in her getting around. Pt notes that if she is sitting or lying down, she doesn't feel too bad, but if she stays in a position too samir, she has a large increase in pain when she tries to get up and move around. Pt feels like she has substantially decreased in her level of activity tolerance and overall fitness level. Pt reports that she tries to walk one block every day, and frequently is unable to do so. Pt also has in the past swam 3x/week, and now has not been to the pool in two years. ADDENDUM 04/30/19: Pt has a new referral for eval/treat of ongoing dizziness. Pt notes that dizziness occurs in episodes lasting seconds, and is brought on by lying back in bed or bending over to harness the dog. 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 The most prominent level of degenerative change is L3-L4, where there is a left lateral recess disc extrusion, with associated moderate to severe central canal narrowing. Moderate to severe bilateral neural foraminal narrowing is also seen at this level. Impression taken from Objective history of pt note from MIRACLE Arriaza on Prior Functional Status Baseline Function- ADL's Independent Baseline Function- Mobility Independent Baseline Function- Gait Walk multiple miles downtown Baseline Function- Recreation/Hobbies Swimming at community pool Current Functional Impairments (Reported) Functional Limitations- Mobility/Gait Pt unable to walk more than one block Functional Limitations- Recreation/ Pt has not gone to pool in [place] past two years. PT-OP-C Subjective Start: 11/28/18 17:41 Freq: Status: Active Protocol: Document 07/07/20 11:19 HH (Rec: 07/07/20 12:07 HH [id number]) OP-PT Subjective Patient Comments Patient Comments Im doing pretty good today and im going to see my daughter down in [place] for couple days. PT-OP-F Manual Assessment Start: 11/28/18 17:41 Freq: Status: Active Protocol: Document 01/06/20 13:45 DCW (Rec: 01/06/20 14:07 DCW [id number]) Manual Assessments Soft Tissue Assessment Soft Tissue Mobility Assessment Moderate tone and tenderness to palpation 2/4:Pain with wincing: bilateral QL, bilateral piriformis PT-OP-K Range of Motion Start: 11/28/18 17:41 Freq: Status: Active Protocol: Document 01/06/20 13:45 DCW (Rec: 01/06/20 14:07 DCW [id number]) Lumbar Spine Range of Motion Lumbar Spine Active Degrees Testing Position Standing Flexion 64 Extension 15 Lateral Flexion Left 60 Lateral Flexion Right 59 ROM Limitations Muscle Weakness,Pain PT-OP-L Special Tests Start: 11/28/18 17:41 Freq: Status: Active Protocol: Document 01/06/20 13:45 DCW (Rec: 01/06/20 14:07 DCW [id number]) Special Tests Lumbar Spine Special Tests Manual Traction Test Results Improves symptoms Compression Test Results Improves symptoms Hip Special Tests Piriformis Test Results B tenderness at Piriformis PARAS Test Results Positive left ipsilateral lateral hip pain PT-OP-M Strength Start: 11/28/18 17:41 Freq: Status: Active Protocol: Document 01/06/20 13:45 DCW (Rec: 01/06/20 14:07 DCW [id number]) Trunk Strength Trunk Manual Muscle Testing Core Stabilization Pt able to properly contract TrA with verbal cues, holds SLR for 10 seconds MMT: 4/5 Hip Strength Hip Manual Muscle Testing Right Flexion (L2) 4+ Good+ Abduction 4 Good Adduction 4 Good External Rotation 5 Normal Internal Rotation 5 Normal Left Flexion (L2) 4 Good Abduction 4 Good Adduction 4 Good External Rotation 5 Normal Internal Rotation 5 Normal Knee Strength Knee Manual Muscle Testing Right Flexion (S2) 4+ Good+ Extension (L3) 5 Normal Left Flexion (S2) 4+ Good+ Extension (L3) 5 Normal Ankle/Foot Strength Ankle and Foot Manual Muscle Testing Right Dorsiflexion (L4) 4+ Good+ Plantarflexion (S1) 4 Good Left Dorsiflexion (L4) 4+ Good+ Plantarflexion (S1) 4 Good PT-OP-O Vestibular Start: 04/30/19 17:56 Freq: Status: Active Protocol: Document 04/30/19 12:00 DCW (Rec: 05/01/19 09:44 DCW [id number]) Vestibular Assessment Visual Testing Smooth Pursuits Horizontal Questionable saccadic movement when following left Smooth Pursuits Vertical WNL Saccades Horizontal WNL Positional Testing [place]-Hallpike Negative Left,Negative Right Rolling Test Positive Left,Positive Right,> 60 Seconds Comments Vestibular Comments Ageotropic nystagmus with roll test, continued entire time pt was positioned PT-OP-Q Treatments Start: 11/28/18 17:41 Freq: Status: Active Protocol: Document 07/07/20 11:19 HH (Rec: 07/07/20 12:07 HH [id number]) Cardio Equipment Recumbent Stepper (Sci-Fit) Duration (Minutes) 8 Resistance 2.5 Seat Position 10 Other 1.00 mile Gym Equipment Shuttle Recovery Unilateral Squats Resistance 50# Reps/Time 10 x2 Bilateral Squats Resistance 75#->87# Reps/Time 15 x3 Therapeutic Exercises Standing Exercises calf raises Side bilateral Reps/Minutes 10x2 Comments for HEP step taps Standing Exercise Name Toe-taps Side bilateral Resistance 5# Equipment Used @ rail Manual Therapy Treatment Soft Tissue Mobilization L/S and glutes Mobilization Type Sustained Pressure,Trigger Point Release Intensity/Depth Moderate Body Position Sidelying PT-OP-R Modalities Start: 11/28/18 17:41 Freq: Status: Active Protocol: Document 07/07/20 11:19 HH (Rec: 07/07/20 12:07 [id number]) Hot Pack/Cold Pack Treatment Hot Pack Location low back Patient Position Hooklying Treatment Duration (minutes) 15 Patient Tolerance Good PT-OP-T Assessment and Plan Start: 11/28/18 17:41 Freq: Status: Active Protocol: Document 07/07/20 11:19 (Rec: 07/07/20 12:07 [id number]) Physical Therapy Assessment Goals stair climbing Impairment pt using R rail for stair climbing Alf Goal (LTG) discontinue 06/11 pt will be able to improve strength and balance to climb stairs without UE support LTG Duration 10 weeks 2 MWT Impairment will assess next visit Four Impairment Core and hip weakness Short Term Goal (STG) Pt to demonstrate increased hip abduction bilaterally to 4 +/5 STG Duration 02/06/20 - Improving Alf Goal (LTG) Goal Met:Pt to exhibit core/ TrA MMT 4-/5 Advance to 4+/5 LTG Duration 03/07/20 - Improving Three Impairment Pt has not been able to swim for two years Short Term Goal (STG) cont to progress [place] is currently in phase 3 reopening. Alf Goal (LTG) Pt will return to community pool and strength and balance class independently for exercise with no increased back pain LTG Duration 07/11/20 Two Impairment Pt only able to walk <one square block due to pain STG Duration 02/06/20 - Improving Customer Acquisition Manager Goal (LTG) 06/11/20 Pt is currently doing 1500- 2000 steps daily. Pt to ambulate [id number] steps daily to improve her activity tolerance. LTG Duration 12 weeks One Impairment Pt does not have an appropriate home exercise program Short Term Goal (STG) 10/20 goal met Pt to be independent and compliant with an appropriate HEP Assessment Summary Assessment This is pt's last scheduled visit for PT. Pt is going to [place] to vist her daughter. Motivate pt to participate fitness class at [facility] for maintainence purpose. However, pt is hesitant and agreed to try her best. Will contact pt in a few weeks to check her progres.s Physical Therapy Plan Frequency and Duration Frequency of Treatment 1x/Week Duration of Treatment 4 weeks Plan of Care Start Date 06/11/20 Plan of Care End Date 07/11/20 Therapeutic Interventions Therapeutic Interventions Aquatic Therapy,Balance Training,Gait Training,Home Exercise Program,Joint Mobilizations,Manual Therapy, Neuromuscular Re-education, Patient/Caregiver Education, Self-Care/Home Management,Soft Tissue Mobilization,Taping, Therapeutic Activities, Therapeutic Exercises Modalities Cold Pack/Ice Massage,Electric Stimulation,Hot Packs, Infrared Therapy,Iontophoresis ,Ultrasound Next Visit Focus/Plan Next Note Type Treatment Note Next Visit Plan stepper, leg press, trunk ROM, balance ex.
--- NOTE | 2020-11-05 13:08 | PT.OPDS ---
Current Diagnoses Polyneuropathy, unspecified (07/07/20) Benign paroxysmal vertigo, left ear (07/07/20) Pain in right hip (07/07/20) Pain in left hip (07/07/20) Stiffness of right hip, not elsewhere classified (07/07/20) Stiffness of left hip, not elsewhere classified (07/07/20) Spondylolisthesis, lumbar region (07/07/20) Spondylosis without myelopathy or radiculopathy, lumbosacral region (07/07/20) Other intervertebral disc displacement, lumbar region (07/07/20) Muscle weakness (generalized) (07/07/20) Visit Care Team Role Provider Type Jorge L Dietz MD Primary Care Provider Physician Specialty: Family Practice Address: [address] [place] [address], [facility] Email: [email or web address] MIRACLE Arriaza Attending Provider Non-Staff Specialty: [facility] Address: [address] [place] [address], [id number] Email: Visit Number Visit Number 81 Discharge Summary PT-OP-T Assessment and Plan Start: 11/28/18 17:41 Freq: Status: Active Protocol: Document 11/05/20 13:07 (Rec: 11/05/20 13:08 [id number]) Physical Therapy Plan Discharge Physical Therapy Discharge Reasons No Longer Attending PT Discharge Comments per EMR, pt has been plateaued from PT and I did recommend her to participate fitness program at [facility] for maintainence. Pt is no longer attending PT at this point . DC from PT today
== END 2020-11-05 15:08 | disposition home or self-care (01) ==
LOC: PHYS 11:15
PROVIDERS: PCP Family Medicine; Visit Provider Registered Nurse
DX: M47.817 Spondylosis without myelopathy or radiculopathy, lumbosacral region (principal); M43.16 Spondylolisthesis, lumbar region; G62.9 Polyneuropathy, unspecified; M51.26 Other intervertebral disc displacement, lumbar region; M25.652 Stiffness of left hip, not elsewhere classified; M25.651 Stiffness of right hip, not elsewhere classified; M25.552 Pain in left hip; M25.551 Pain in right hip; M62.81 Muscle weakness (generalized); H81.12 Benign paroxysmal vertigo, left ear
CPT/HCPCS: 95992; 97010; 97110; 97112; 97140; 97162; 97530

== ENCOUNTER → 2020-09-01 11:51 | Outpatient (ROUT) | payer MEDICARE, OTHER, SELFPAY ==
[2020-09-01 12:03] LABS: Prothrombin Time 11.1 SECONDS (10.1-12.7)
== END ==
PROVIDERS: Family Provider Family Medicine; PCP Family Medicine; Visit Provider Family Medicine
DX: I48.91 Unspecified atrial fibrillation (principal); Z79.01 Long term (current) use of anticoagulants
CPT/HCPCS: 85610

== ENCOUNTER → 2020-09-07 09:48 | Outpatient (ROUT) | payer MEDICARE, OTHER, SELFPAY ==
[2020-09-07 10:14] LABS: INR 1.4 (0.9-1.3); Prothrombin Time 15.8 SECONDS (10.1-12.7)
== END ==
PROVIDERS: Family Provider Family Medicine; PCP Family Medicine; Visit Provider Family Medicine
DX: I48.91 Unspecified atrial fibrillation (principal); Z79.01 Long term (current) use of anticoagulants
CPT/HCPCS: 85610

== ENCOUNTER → 2020-09-17 14:35 | Outpatient (CLI) | payer MEDICARE, OTHER, SELFPAY ==
[2020-09-17 10:31] LABS: INR 1.7 (0.9-1.3); Prothrombin Time 19.8 SECONDS (10.1-12.7)
== END ==
PROVIDERS: Family Provider Family Medicine; PCP Family Medicine; Referring Provider Family Medicine; Visit Provider Family Medicine
DX: I48.91 Unspecified atrial fibrillation (principal); Z79.01 Long term (current) use of anticoagulants
CPT/HCPCS: 85610

== ENCOUNTER → 2020-10-20 11:29 | Outpatient (ROUT) | payer MEDICARE, OTHER, SELFPAY ==
[2020-10-20 11:59] LABS: INR 1.5 (0.9-1.3); Prothrombin Time 17.5 SECONDS (10.1-12.7)
== END ==
PROVIDERS: Family Provider Family Medicine; PCP Family Medicine; Visit Provider Family Medicine
DX: Z79.01 Long term (current) use of anticoagulants (principal); I48.91 Unspecified atrial fibrillation
CPT/HCPCS: 85610

== ENCOUNTER 2020-10-21 16:28 | Emergency (ER) | payer MEDICARE, OTHER, SELFPAY ==
[2020-10-21] VITALS (10 sets, daily range): BP systolic 137–147; BP diastolic 63–68; PULSE 51–80; RESP 13–24; TEMP 36.8; O2SAT 96–98; BMI 30.7
--- NOTE | 2020-10-21 16:31 | ED.GENADULT ---
HPI - General Adult General Chief complaint: Syncope Stated complaint: Syncopal episode, unwitnessed fall with head inj Time Seen by Provider: 10/21/20 16:31 Source: patient and EMS Mode of arrival: EMS History of Present Illness HPI narrative: Patient is a 80-year-old female. End-stage renal disease on dialysis. States she drove herself to dialysis. She walked up to the door in order to let them know that she was there for her dialysis treatment. She states that during the walk up to the door she became very tired. No real specific symptoms other than the fatigue. She states that it was to the point where she had to sit down on the curb because of how tired she was. She states that after that she is somewhat fuzzy about what happened. Is reported that as she tried to stand up when the door was open in order to go in to the dialysis center she had what appeared to be a syncopal episode. She did hit her head. She is on blood thinners. She did sustain skin abrasions to her left hand in her legs. She states the next thing she remembers the paramedics were there. She does report a headache. She was unable to stand on her own per EMS. She arrived not on a backboard not in the cervical collar. Related Data Home Medications Medication Instructions Recorded Confirmed acetaminophen 500 mg tablet 1,000 mg PO BID PRN tab 10/12/17 12/30/19 (Acetaminophen Extra Strength) brimonidine 0.1 % eye drops 1 drop EYE-RIGHT BID ml 10/12/17 12/30/19 (Alphagan P) dorzolamide 22.3 mg-timolol 6.8 1 drop EYE-BOTH BID ml 10/12/17 12/30/19 mg/mL eye drops multivitamin (Daily Multi-Vitamin) 1 tab PO DAILY 12/29/17 12/30/19 biotin 2,500 mcg capsule 5 mg PO DAILY cap 03/04/19 12/30/19 carvedilol 6.25 mg tablet (Coreg) 25 mg PO BID #60 tab 03/04/19 12/30/19 allopurinol 100 mg tablet 300 mg PO DAILY tab 09/25/19 12/30/19 furosemide 20 mg tablet 20 mg PO QDAY PRN #30 tab 09/25/19 12/30/19 levothyroxine 25 mcg tablet 25 mcg PO DAILY 09/25/19 12/30/19 amlodipine 5 mg tablet (Norvasc) 5 mg DAILY 11/12/19 12/30/19 melatonin 5 mg capsule 5 mg DAILY 11/12/19 12/30/19 apixaban 5 mg tablet (Eliquis) 5 mg PO BID 06/02/20 06/02/20 Previous Rx's Medication Instructions Recorded hydrocodone 5 mg-acetaminophen 325 1 tab PO Q8H PRN #4 tab 10/21/20 mg tablet Allergies Allergy/AdvReac Type Severity Reaction Status Date / Time codeine [CODEINE] Allergy Severe ANAPHYLACTI Verified 12/30/19 16:24 C peanut [PEANUT] Allergy Severe ANAPHYLACTI Verified 12/30/19 16:24 C propofol AdvReac hallucinations, Verified 12/30/19 16:24 confusion Review of Systems Constitutional Constitutional: Denies fever(s) and Reports headache(s) Eyes Comments: No change in vision ENT Ears, Nose, Mouth, and Throat: Reports headache(s) Cardiovascular Comments: No chest pain or palpitation Respiratory Comments: No shortness of breath or cough Gastrointestinal Comments: Some nausea, no abdominal pain, no change in bowel habits Genitourinary Genitourinary: Reports system reviewed and no additional complaints, except as documented Musculoskeletal Comments: Patient has lower back pain, pain in her left hand, left leg pain Integumentary/Breasts Comments: Abrasions to left hand and f front of her legs Neurologic Neurologic: Reports headache(s) Psychiatric Psychiatric: Reports system reviewed and no additional complaints, except as documented Endocrine Endocrine: Reports system reviewed and no additional complaints, except as documented Hematologic/Lymphatic On Anticoagulants: Yes Allergic/Immunologic Allergic/Immunologic: Reports system reviewed and no additional complaints, except as documented Patient History Medical History (Updated 10/21/20 @ 18:47 by Jose Kinney DO) Atrial fibrillation Chronic anticoagulation Foraminal stenosis of lumbar region Gastroesophageal reflux disease Gout Hypertension Surgical History (Updated 11/12/19 @ 16:31 by Jorge L Ortiz MD) H/O tubal ligation History of cardiac radiofrequency ablation Hx of cholecystectomy Hx of tonsillectomy Family History Mother Lung cancer Social History Smoking Status: Never smoker Smoking Status: Never smoker Substance Use Type: does not use Exam Initial Vital Signs Initial Vital Signs: Vital Signs Temperature 98.2 F 10/21/20 16:30 Pulse Rate 58 L 10/21/20 16:30 Respiratory Rate 18 10/21/20 16:30 Blood Pressure 147/68 H 10/21/20 16:30 Pulse Oximetry 96 10/21/20 16:30 Const General: cooperative, comfortable, well developed and well groomed HENAK Head: contusion (Left temporal/parietal region) Eyes General: appearance normal, both eyes and all related structures Chest Chest: No crepitus and No tenderness Resp Effort & Inspection: normal respiratory effort Auscultation: clear to auscultation bilaterally Cardio Rate: bradycardic Rhythm: regular rhythm GI Inspection: normal to inspection Palpation: soft and No tender Back/Spine/Pelvis Cervical Spine: No cervical muscular tenderness and No cervical spinal tenderness Thoracic/Lumbar Spine: paraspinal tenderness (Thoracolumbar region), No thoracic spinal tenderness and lumbar spinal tenderness Skin Other: Patient was skin abrasion over the dorsum of the left hand and over the anterior aspects of both of her lower legs Neuro General: patient alert, patient awake, patient oriented x3 and moves all extremities Extrem General: normal to inspection and capillary refill normal Psych Appearance: grossly normal and well kempt Scores GCS [place] coma scale eye opening: Spontaneous [place] coma scale verbal response: Orientated [place] coma scale motor response: Obey commands Uday coma scale total score: 15 Nexus Score for C-Spine Focal Neurologic deficit present: No Midline spinal tenderness present: No Altered level of conciousness present: No Intoxication present: No Distracting Injury Present: No Nexus Criteria for C-spine: 0 Course Orders Ordered: ED Orders 10/21/20 16:33 EKG-12 Lead Stat 10/21/20 16:56 CT head/brain wo con Stat XR lumbar spine 2-3V Stat XR ribs LT min 3V w CXR1V Stat 10/21/20 17:08 Complete Blood Count AUTO DIFF Stat Comprehensive Metabolic Panel Stat Lipase Stat Thyroid Stimulating Hormone Stat Discontinued Medications Hydrocodone Bitart/Acetaminophen (Hydrocodone/Acet 5/325 Tablet) 1 tab PO NOW ONE Stop: 10/21/20 18:16 Last Admin: 10/21/20 18:26 Dose: 1 tab Documented by: SAI Vital Signs Vital signs: Vital Signs - 8 hr 10/21/20 16:30 10/21/20 16:39 10/21/20 16:41 Temperature 98.2 F Pulse Rate 58 L 59 L Respiratory Rate 18 24 Blood Pressure 147/68 H 147/68 H Pulse Oximetry 96 96 10/21/20 17:00 10/21/20 17:30 10/21/20 18:00 Temperature Pulse Rate 57 L 55 L 53 L Respiratory Rate 20 14 16 Blood Pressure 142/63 H Pulse Oximetry 98 97 98 10/21/20 18:19 Temperature Pulse Rate 54 L Respiratory Rate 13 Blood Pressure 137/65 Pulse Oximetry 98 Medical Decision Making Medical Records Medical records reviewed: Yes I reviewed the patient's medical records. Lab Data Lab results reviewed: Yes I reviewed the patient's lab results. Result diagrams: 10/21/20 17:08 10/21/20 17:08 Labs: Lab Results 10/21/20 10/21/20 10/21/20 Range/Units 17:08 17:08 17:08 WBC 8.2 (4.5-11.0) X10^3/uL RBC 3.47 L (4.0-5.2) X10^6/uL Hgb 11.5 L (12.0-16.0) g/dL Hct 34.6 L (36-46) % MCV 99.7 (80-100) fL MCH 33.1 (26-34) PG MCHC 33.1 (30-36) % RDW 15.6 H (11.6-14.8) % Plt Count 210 (150-400) X10^3/uL Neut % (Auto) 62.2 (50-75) % Lymph % (Auto) 25.5 (25-40) % [place] % (Auto) 9.9 (3-14) % Eos % (Auto) 1.9 L (2-4) % Baso % (Auto) 0.5 (0-2) % Neut # (Auto) 5100 (0965-8897) /uL Lymph # (Auto) 2100 (8843-9715) /uL [place] # (Auto) 800 (0-900) /uL Eos # (Auto) 200 (0-450) /uL Baso # (Auto) 0 (0-100) /uL Sodium 133 L (137-145) mmol/L Potassium 4.9 (3.4-5.1) mmol/L Chloride 99 (98-107) mmol/L Carbon Dioxide 24 (22-32) mmol/L BUN 55 H (7-17) mg/dL Creatinine 4.88 H (0.52-1.04) mg/dL Estimated GFR 8.6 L (>60) mL/min BUN/Creatinine Ratio 11.3 (6-22) Glucose 107 (80-110) mg/dL Calcium 9.0 (8.4-10.2) mg/dL Total Bilirubin 0.4 (0.2-1.3) mg/dL AST 21 (14-36) IU/L ALT 19 (<35) IU/L Alkaline Phosphatase 62 (38-126) U/L Total Protein 6.3 (6.3-8.2) g/dL Albumin 3.6 (3.5-5.0) g/dL Globulin 2.7 (1.7-4.1) g/dL Albumin/Globulin Ratio 1.3 (1.0-2.8) Lipase 208 (23-300) U/L TSH 0.067 L (0.47-4.68) uIU/mL Imaging Data CT scan - head: Radiologist's Impression: [address] [id number] Scan ReportSigned Patient: Clementina Roque R#: [id number]: 2Acct:[id number]/Sex: 80 / FDate of Service: 10/21/20Loc: EDAccession Number: [id number] Procedure: CT head/brain wo con Ordering Provider: Jose Kinney D.O. PROCEDURE: CT HEAD/BRAIN WO CON INDICATIONS: fall on thinners TECHNIQUE: Noncontrast 4.5 mm thick angled axial sections acquired from the foramen magnum to the vertex, with coronal and sagittal reformats. For radiation dose reduction, the following was used: automated exposure control, adjustment of mA and/or kV according to patient size. COMPARISON: [facility], CT, CT HEAD/BRAIN WO CON, 10/30/2019, 16:59. FINDINGS: Image quality: Excellent. CSF spaces: Basal cisterns are patent. No extra-axial fluid collections. The ventricles are symmetric in size and shape. Brain: No intracranial bleeds or masses. There is cerebral volume loss for age, with resultant ventricular and sulcal prominence. There are periventricular and deep white matter chronic small vessel ischemic changes. There is intracranial internal carotid artery atherosclerosis. Skull and face: Tiny left frontal scalp contusion. Calvarium and visualized facial bones appear intact, without suspicious lesions. Sinuses: Visualized sinuses and mastoids are clear. IMPRESSION: No acute intracranial hemorrhage. Tiny left frontal scalp contusion. Dictated by: Espinoza Westbrook M.D. on 10/21/2020 at 17:22 Approved by: Espinoza Westbrook M.D. on 10/21/2020 at 17:23 Lumbar spine x-ray: Radiologist's Impression: [address] [id number] ReportSigned Patient: Clementina Roque KRIS#: [id number]: 1940cct:[id number]/Sex: 80 / FDate of Service: 10/21/20Loc: EDAccession Number: [id number] Procedure: XR lumbar spine 2-3V Ordering Provider: Jose Kinney D.O. PROCEDURE: XR LUMBAR SPINE 2-3V INDICATIONS: Fall, low back pain TECHNIQUE: 3 views of the lumbar spine were acquired. COMPARISON: [facility] , L-SPINE 2-3 VIEWS, 07/07/2014, 11:24. Multiple prior lumbar spine examinations. FINDINGS: Severe degenerative changes as seen on multiple prior studies. Vertebral body heights maintained. Anterolisthesis of L4 on L5 is similar. Sacral arcuate lines are intact. IMPRESSION: No acute finding. Extensive degenerative changes. Dictated by: Espinoza Westbrook M.D. on 10/21/2020 at 17:49 Approved by: Espinoza Westbrook M.D. on 10/21/2020 at 17:50 Rib x-ray: Radiologist's Impression: [address] [id number] ReportSigned Patient: Clementina Roque KRIS#: [id number]: 2Acct:[id number]/Sex: 80 / FDate of Service: 10/21/20Loc: EDAccession Number: [id number] Procedure: XR ribs LT min 3V w CXR1V Ordering Provider: Jose Kinney D.O. PROCEDURE: XR RIBS LT MIN 3V W CXR1V INDICATIONS: Trauma, fall with posterior rib pain TECHNIQUE: Two views of the left ribs were acquired, along with a single view chest. COMPARISON: None. FINDINGS: Surgical changes and devices: None. Bones and chest wall: No fractures or dislocations. No suspicious bony lesions. Overlying soft tissues appear unremarkable. Lungs and pleura: No pleural effusions or pneumothorax. Lungs appear clear. Mediastinum: Mediastinal contours appear normal. Heart size is normal. IMPRESSION: Exam limited by patient body habitus. No rib fracture identified radiographically. Dictated by: Espinoza Westbrook M.D. on 10/21/2020 at 17:50 Approved by: Espinoza Westbrook M.D. on 10/21/2020 at 17:51 ECG Data Attestation: I personally reviewed and interpreted this ECG as follows: Interpretation: Sinus bradycardia Ventricular rate of 54 Normal axis Normal QRS Normal QTC No ST T wave changes MDM Narrative Medical decision making narrative: CT scans unremarkable, EKG is unremarkable, labs unremarkable, x-rays are unremarkable, skin tears recovered here in the emergency department. There not amendable to stitching. Patient was able to stand at bedside. Have her contact her primary doctor for follow-up. She was given return precautions. She expressed understanding and agreement. Discharge Plan Departure Patient Disposition: Home Clinical Impression: Contusion of head, Skin tear Instructions: DI for Contusion, DI for Closed Head Injury Prescriptions: New hydrocodone-acetaminophen 5-325 mg tablet 1 tab PO Q8H PRN (Reason: pain) Qty: 4 RF: 0 No Action furosemide 20 mg tablet 20 mg PO QDAY PRN (Reason: Edema) Qty: 30 RF: 0 amlodipine [Norvasc] 5 mg Tablet 5 mg DAILY RF: 0 melatonin 5 mg Capsule 5 mg DAILY RF: 0 Eliquis 5 mg Tablet 5 mg PO BID RF: 0 multivitamin [Daily Multi-Vitamin] tablet 1 tab PO DAILY RF: 0 carvedilol [Coreg] 6.25 mg tablet 25 mg PO BID Qty: 60 RF: 0 allopurinol 100 mg tablet 300 mg PO DAILY RF: 0 biotin 2,500 mcg capsule 5 mg PO DAILY RF: 0 levothyroxine 25 mcg tablet 25 mcg PO DAILY RF: 0 acetaminophen [Acetaminophen Extra Strength] 500 mg tablet 1,000 mg PO BID PRN (Reason: Pain (Scale Score 4-6)) RF: 0 dorzolamide-timolol 22.3-6.8 mg/mL drops 1 drop EYE-BOTH BID RF: 0 brimonidine [Alphagan P] 0.1 % drops 1 drop EYE-RIGHT BID RF: 0 Referrals: Jorge L Dietz MD [Primary Care Provider] -
--- NOTE | 2020-10-21 16:56 | DI.CT.S_ITS ---
PROCEDURE: CT HEAD/BRAIN WO CON INDICATIONS: fall on thinners TECHNIQUE: Noncontrast 4.5 mm thick angled axial sections acquired from the foramen magnum to the vertex, with coronal and sagittal reformats. For radiation dose reduction, the following was used: automated exposure control, adjustment of mA and/or kV according to patient size. COMPARISON: [facility], CT, CT HEAD/BRAIN WO CON, 10/30/2019, 16:59. FINDINGS: Image quality: Excellent. CSF spaces: Basal cisterns are patent. No extra-axial fluid collections. The ventricles are symmetric in size and shape. Brain: No intracranial bleeds or masses. There is cerebral volume loss for age, with resultant ventricular and sulcal prominence. There are periventricular and deep white matter chronic small vessel ischemic changes. There is intracranial internal carotid artery atherosclerosis. Skull and face: Tiny left frontal scalp contusion. Calvarium and visualized facial bones appear intact, without suspicious lesions. Sinuses: Visualized sinuses and mastoids are clear. IMPRESSION: No acute intracranial hemorrhage. Tiny left frontal scalp contusion. Dictated by: Espinoza Westbrook M.D. on 10/21/2020 at 17:22 Approved by: Espinoza Westbrook M.D. on 10/21/2020 at 17:23
--- NOTE | 2020-10-21 16:56 | DI.RAD.S_ITS ---
PROCEDURE: XR LUMBAR SPINE 2-3V INDICATIONS: Fall, low back pain TECHNIQUE: 3 views of the lumbar spine were acquired. COMPARISON: [facility], , L-SPINE 2-3 VIEWS, 07/07/2014, 11:24. Multiple prior lumbar spine examinations. FINDINGS: Severe degenerative changes as seen on multiple prior studies. Vertebral body heights maintained. Anterolisthesis of L4 on L5 is similar. Sacral arcuate lines are intact. IMPRESSION: No acute finding. Extensive degenerative changes. Dictated by: Espinoza Westbrook M.D. on 10/21/2020 at 17:49 Approved by: Espinoza Westbrook M.D. on 10/21/2020 at 17:50
--- NOTE | 2020-10-21 16:56 | DI.RAD.S_ITS ---
PROCEDURE: XR RIBS LT MIN 3V W CXR1V INDICATIONS: Trauma, fall with posterior rib pain TECHNIQUE: Two views of the left ribs were acquired, along with a single view chest. COMPARISON: None. FINDINGS: Surgical changes and devices: None. Bones and chest wall: No fractures or dislocations. No suspicious bony lesions. Overlying soft tissues appear unremarkable. Lungs and pleura: No pleural effusions or pneumothorax. Lungs appear clear. Mediastinum: Mediastinal contours appear normal. Heart size is normal. IMPRESSION: Exam limited by patient body habitus. No rib fracture identified radiographically. Dictated by: Espinoza Westbrook M.D. on 10/21/2020 at 17:50 Approved by: Espinoza Westbrook M.D. on 10/21/2020 at 17:51
[2020-10-21 17:23] LABS: Add Manual Diff / Slide Review NO; Basophils Absolute Auto 0 /uL (0-100); Basophils Percent Auto 0.5 % (0-2); Eosinophils Absolute Auto 200 /uL (0-450); Eosinophils Percent Auto 1.9 % (2-4); Hematocrit 34.6 % (36-46); Hemoglobin 11.5 g/dL (12.0-16.0); Lymphocytes Absolute Auto 2100 /uL (1100-4500); Lymphocytes Percent Auto 25.5 % (25-40); Mean Corpuscular HGB Conc 33.1 % (30-36); Mean Corpuscular Hemoglobin 33.1 PG (26-34); Mean Corpuscular Volume 99.7 fL (80-100); Monocytes Absolute Auto 800 /uL (0-900); Monocytes Percent Auto 9.9 % (3-14); Neutrophils Absolute Auto 5100 /uL (1500-7000); Neutrophils Percent Auto 62.2 % (50-75); Platelet Count 210 X10^3/uL (150-400); Red Blood Cell Count 3.47 X10^6/uL (4.0-5.2); Red Cell Distribution Width 15.6 % (11.6-14.8); White Blood Cell Count 8.2 X10^3/uL (4.5-11.0)
[2020-10-21 17:29] LABS: Alanine Aminotransferase 19 IU/L (<35); Albumin 3.6 g/dL (3.5-5.0); Albumin Globulin Ratio 1.3 (1.0-2.8); Alkaline Phosphatase 62 U/L (38-126); Aspartate Aminotransferase 21 IU/L (14-36); BUN Creatinine Ratio 11.3 (6-22); Bilirubin Total 0.4 mg/dL (0.2-1.3); Blood Urea Nitrogen 55 mg/dL (7-17); Carbon Dioxide 24 mmol/L (22-32); Chloride 99 mmol/L (98-107); Estimated Glomerular Filt Rate 8.6 mL/min (>60); Globulin 2.7 g/dL (1.7-4.1); Glucose 107 mg/dL (80-110); HEMOLYSIS < 15 (0-50); Lipase 208 U/L (23-300); Potassium 4.9 mmol/L (3.4-5.1); Sodium 133 mmol/L (137-145); Total Protein 6.3 g/dL (6.3-8.2)
[2020-10-21 18:09] LABS: Thyroid Stimulating Hormone 0.067 uIU/mL (0.47-4.68)
[2020-10-21] MEDS: HYDROCODONE/ACET 5/325 TABLET 1 TAB PO (18:26)
== END 2020-10-21 19:25 | disposition home or self-care (01) ==
PROVIDERS: Emergency Provider Emergency Medicine; Family Provider Family Medicine; PCP Family Medicine
DX: S00.93XA Contusion of unspecified part of head, initial encounter (principal); R51.9 Headache, unspecified; S60.512A Abrasion of left hand, initial encounter; S80.812A Abrasion, left lower leg, initial encounter; S80.811A Abrasion, right lower leg, initial encounter; R00.1 Bradycardia, unspecified; M54.5 Low back pain; R07.81 Pleurodynia; R55 Syncope and collapse; N18.6 End stage renal disease; Z99.2 Dependence on renal dialysis; W19.XXXA Unspecified fall, initial encounter
CPT/HCPCS: 36415; 70450; 71101; 72100; 80053; 83690; 84443; 85025; 93005; 99284

== ENCOUNTER → 2020-11-10 11:41 | Outpatient (ROUT) | payer MEDICARE, OTHER, SELFPAY ==
[2020-11-10 11:50] LABS: Prothrombin Time 23.5 SECONDS (10.1-12.7)
== END ==
PROVIDERS: Family Provider Family Medicine; PCP Family Medicine; Visit Provider Family Medicine
DX: I48.91 Unspecified atrial fibrillation (principal); Z79.01 Long term (current) use of anticoagulants
CPT/HCPCS: 85610

== ENCOUNTER 2020-12-05 15:47 | Emergency (ER) | payer MEDICARE, OTHER, SELFPAY ==
[2020-12-05 15:59] VITALS: BP 210/87; PULSE 65; RESP 18; TEMP 37.1; O2SAT 98; BMI 29.9
--- NOTE | 2020-12-05 16:02 | PC.NURSE ---
Dressing removed from right hand, sutures to back of hand cdi, well approximated, no drainage, no erythema. Pt is c/o that the coban that was placed yesterday smells like mildew.
--- NOTE | 2020-12-05 16:04 | ED.EXTPRO ---
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 Her chief complaint today is that the Coban smells like mildew. She feels like it does not smell good. She was instructed by Dermatology to keep her and elevated by her face but she cannot do it because it smells so terrible. She was unable to go to by more her self. She has not had any fever or chills no erythema no drainage or pus from the site blood pressure is noted to be quite elevated. She states that normally is not elevated, it is checked at dialysis. She is on hemodialysis, denies history of diabetes. Related Data Home Medications Medication Instructions Recorded Confirmed acetaminophen 500 mg tablet 1,000 mg PO BID PRN tab 10/12/17 12/30/19 (Acetaminophen Extra Strength) brimonidine 0.1 % eye drops 1 drop EYE-RIGHT BID ml 10/12/17 12/30/19 (Alphagan P) dorzolamide 22.3 mg-timolol 6.8 1 drop EYE-BOTH BID ml 10/12/17 12/30/19 mg/mL eye drops multivitamin (Daily Multi-Vitamin) 1 tab PO DAILY 12/29/17 12/30/19 biotin 2,500 mcg capsule 5 mg PO DAILY cap 03/04/19 12/30/19 carvedilol 6.25 mg tablet (Coreg) 25 mg PO BID #60 tab 03/04/19 12/30/19 allopurinol 100 mg tablet 300 mg PO DAILY tab 09/25/19 12/30/19 furosemide 20 mg tablet 20 mg PO QDAY PRN #30 tab 09/25/19 12/30/19 levothyroxine 25 mcg tablet 25 mcg PO DAILY 09/25/19 12/30/19 amlodipine 5 mg tablet (Norvasc) 5 mg DAILY 11/12/19 12/30/19 melatonin 5 mg capsule 5 mg DAILY 11/12/19 12/30/19 apixaban 5 mg tablet (Eliquis) 5 mg PO BID 06/02/20 06/02/20 Previous Rx's Medication Instructions Recorded hydrocodone 5 mg-acetaminophen 325 1 tab PO Q8H PRN #4 tab 10/21/20 mg tablet Allergies Allergy/AdvReac Type Severity Reaction Status Date / Time codeine [CODEINE] Allergy Severe ANAPHYLACTI Verified 12/05/20 15:59 C peanut [PEANUT] Allergy Severe ANAPHYLACTI Verified 12/05/20 15:59 C propofol AdvReac hallucinations, Verified 12/05/20 15:59 confusion Review of Systems Review of Systems Narrative: GENERAL: Denies chills,fever HEENT: Denies throat pain RESPIRATORY: Denies dyspnea, cough, wheezing CARDIOVASCULAR: Denies chest pain, palpitations GASTROINTESTINAL: Denies nausea, vomiting MUSCULOSKELETAL: Denies extremity pain, injury SKIN: See HPI NEUROLOGIC: Denies weakness, dizziness, headache, numbness 8 point review of systems is negative except for those stated above and HPI Patient History Medical History (Updated 12/05/20 @ 16:18 by Tahira Doherty DO) Atrial fibrillation Chronic anticoagulation Foraminal stenosis of lumbar region Gastroesophageal reflux disease Gout Hypertension Surgical History (Updated 11/12/19 @ 16:31 by Jorge L Ortiz MD) H/O tubal ligation History of cardiac radiofrequency ablation Hx of cholecystectomy Hx of tonsillectomy Family History Mother Lung cancer Social History Smoking Status: Never smoker Smoking Status: Never smoker Substance Use Type: does not use Exam Initial Vital Signs Initial Vital Signs: Vital Signs Temperature 98.7 F 12/05/20 15:59 Pulse Rate 65 12/05/20 15:59 Respiratory Rate 18 12/05/20 15:59 Blood Pressure 210/87 H 12/05/20 15:59 Pulse Oximetry 98 12/05/20 15:59 GENERAL: Well-appearing, well-nourished and in no acute distress. CARDIOVASCULAR: peripheral pulses in tact, cap refill <2 sec RESPIRATORY: No respiratory distress, speaks in full sentences without difficulty EXTREMITIES: Normal range of motion, no clubbing or edema. Neurovascularly intact NEUROLOGICAL: Cranial nerves II through XII grossly intact. Normal gait and speech. SKIN: Incision site on right hand appears well clean and dry no sign of infection Course Orders Ordered: Discontinued Medications Bacitracin (Bacitracin Oint 0.9 Gm Pckt) 1 applic TOP NOW ONE Stop: 12/05/20 16:12 Last Admin: 12/05/20 16:16 Dose: 1 applic Documented by: ANA Vital Signs Vital signs: Vital Signs - 8 hr 12/05/20 15:59 Temperature 98.7 F Pulse Rate 65 Respiratory Rate 18 Blood Pressure 210/87 H Pulse Oximetry 98 MDM - Extremity (Nontraumatic) MDM Narrative Medical decision making narrative: Patient smelled are Coban and it was acceptable to her. Dressing was changed. Discharge Plan Departure Patient Disposition: Home Clinical Impression: Change of dressing Instructions: DI for Wound Infection Activity Restrictions/Additional Instructions: You were seen today for a dressing change Please follow-up with dermatology and follow dermatology discharge instruction Return to emergency department if you should have any redness pus swelling or pain or any new or worsening symptoms Prescriptions: No Action furosemide 20 mg tablet 20 mg PO QDAY PRN (Reason: Edema) Qty: 30 RF: 0 amlodipine [Norvasc] 5 mg Tablet 5 mg DAILY RF: 0 melatonin 5 mg Capsule 5 mg DAILY RF: 0 Eliquis 5 mg Tablet 5 mg PO BID RF: 0 hydrocodone-acetaminophen 5-325 mg tablet 1 tab PO Q8H PRN (Reason: pain) Qty: 4 RF: 0 multivitamin [Daily Multi-Vitamin] tablet 1 tab PO DAILY RF: 0 carvedilol [Coreg] 6.25 mg tablet 25 mg PO BID Qty: 60 RF: 0 allopurinol 100 mg tablet 300 mg PO DAILY RF: 0 biotin 2,500 mcg capsule 5 mg PO DAILY RF: 0 levothyroxine 25 mcg tablet 25 mcg PO DAILY RF: 0 acetaminophen [Acetaminophen Extra Strength] 500 mg tablet 1,000 mg PO BID PRN (Reason: Pain (Scale Score 4-6)) RF: 0 dorzolamide-timolol 22.3-6.8 mg/mL drops 1 drop EYE-BOTH BID RF: 0 brimonidine [Alphagan P] 0.1 % drops 1 drop EYE-RIGHT BID RF: 0 Referrals: Jorge L Dietz MD [Primary Care Provider] -
[2020-12-05] MEDS: BACITRACIN OINT 0.9 GM PCKT 1 APPLIC TOP (16:16)
--- NOTE | 2020-12-05 16:22 | PC.NURSE ---
Bacitracin applied to sutures, covered with 4x4 and coban with good CMS and brisk cap refill.
== END 2020-12-05 16:23 | disposition home or self-care (01) ==
PROVIDERS: Emergency Provider Emergency Medicine; Family Provider Family Medicine; PCP Family Medicine
DX: Z48.00 Encounter for change or removal of nonsurgical wound dressing (principal)
CPT/HCPCS: 99282

== ENCOUNTER → 2020-12-14 11:52 | Outpatient (ROUT) | payer MEDICARE, OTHER, SELFPAY ==
[2020-12-14 11:58] LABS: INR 1.5 (0.9-1.3); Prothrombin Time 16.9 SECONDS (10.1-12.7)
== END ==
PROVIDERS: Family Provider Family Medicine; PCP Family Medicine; Visit Provider Family Medicine
DX: I48.91 Unspecified atrial fibrillation (principal); Z79.01 Long term (current) use of anticoagulants
CPT/HCPCS: 85610

== ENCOUNTER → 2020-12-18 10:12 | Outpatient (CLI) | payer MEDICARE, OTHER, SELFPAY ==
[2020-12-18 12:22] LABS: COVID19 -Nasal RAPID Negative (Negative)
== END ==
PROVIDERS: Family Provider Family Medicine; PCP Family Medicine; Visit Provider Nurse Practitioner
DX: Z20.822 Contact with and (suspected) exposure to COVID-19 (principal); Z01.812 Encounter for preprocedural laboratory examination
CPT/HCPCS: 87635; C9803

== ENCOUNTER → 2020-12-21 10:17 | Outpatient (CLI) | payer MEDICARE, OTHER, SELFPAY ==
--- NOTE | 2020-12-21 10:21 | DI.ECHO.S_ITS ---
[facility] +---------+ : : [address] [place] : : : : [id number] : : : : Phone: [phone]+ Echocardiogram Report + + :Name: LUCA SADLER Study Date: 12/21/2020 Height: 66 in : :[facility] ReadingLocation: Weight: 183 lb : : Gender: Female BSA: 1.9 m2 : :: 1940 Age: 80 yrs BP: 200/80 mmHg: :Reason For Study: Atrial fibrillation - paroxysmal : : Performed By: MELANI ABDULLAHI : :Referring: CHLOE WILCOX : + + Interpretation Summary The left ventricle is normal in size. There is mild concentric left ventricular hypertrophy. The ejection fraction is estimated to be 60-65%. MV E/A: 1.1 Med Peak E' Ronnie: 4.9 cm/sec E/E' med: 15.6 The right ventricle is normal in size and function. There is mild to moderate mitral regurgitation. Compared to the prior echo study, there has been no change in the severity of mitral regurgitation. There is mild aortic regurgitation. Compared to the prior echo study, there has been no change in the severity of aortic regurgitation. There is mild tricuspid regurgitation. The right ventricular systolic pressure is estimated to be at least 27 mmHg based on an estimated right atrial pressure of 3 mm Hg. BP: 200/80 mmHg Procedure: A two-dimensional transthoracic echocardiogram with color flow and Doppler was performed. The study quality was technically adequate. Comparison is made with the echocardiogram of 08/03/2015. The patient was in normal sinus rhythm during the exam. Left Ventricle: There is mild concentric left ventricular hypertrophy. There is borderline proximal septal thickening noted. The left ventricle is normal in size. There is no thrombus. The left ventricular ejection fraction is normal. The ejection fraction is estimated to be 60-65%. There are no focal wall motion abnormalities. MV E/A: 1.1 Med Peak E' Ronnie: 4.9 cm/sec E/E' med: 15.6. Right Ventricle: The right ventricle is normal in size and function. Atria: The left atrium is severely dilated. The left atrium has remained unchanged in size since the prior echo exam. The right atrium is moderately dilated. There is no Doppler evidence for an interatrial shunt. Mitral Valve: There is mild mitral annular calcification. The mitral valve leaflets appear mildly thickened, but open well. The mitral valve chordae are thickened and/or calcified. There is mild to moderate mitral regurgitation. Compared to the prior echo study, there has been no change in the severity of mitral regurgitation. Aortic Valve: The aortic valve is trileaflet. The aortic valve is slightly calcified. There is no aortic valve stenosis. There is mild aortic regurgitation. Compared to the prior echo study, there has been no change in the severity of aortic regurgitation. Tricuspid Valve: The tricuspid valve is normal. There is mild tricuspid regurgitation. The right ventricular systolic pressure is estimated to be at least 27 mmHg based on an estimated right atrial pressure of 3 mm Hg. Pulmonic Valve: The pulmonic valve leaflets are thin and pliable; valve motion is normal. There is mild pulmonic regurgitation. Great Vessels: The aortic root is normal size. There is aortic root sclerosis/calcification. The ascending aorta is at the upper limits of normal in size. The aortic arch is normal in size. The IVC is of normal diameter and collapses greater than 50% with a sniff. This suggests a low right atrial pressure of 3 mm Hg. Pericardium/ Pleura There is no pericardial effusion. There is an anterior echo-free space consistent with a fat pad. There is no pleural effusion. MMode/2D Measurements & Calculations LVIDd: 5.0 cm LVOT diam: 1.9 cm LVIDs: 3.4 cm Ao root diam: 3.2 cm FS: 31.9 % asc Aorta Diam: 3.5 cm IVSd: 1.1 cm Ao Arch Diam (Prox Trans): 2.3 cm LVPWd: 1.1 cm LV archibald. diameter/BSA (cm/m^2): 2.6 LV sys. diameter/BSA (cm/m^2): 1.8 LA A2 area: 21.5 cm2 RA long axis: 5.6 cm LA A4 area: 24.7 cm2 RA area: 21.9 cm2 LA length (vol): 5.7 cm RA vol: 73.1 ml LA vol: 78.6 ml RA : 38.0 ml/m2 LA vol index: 40.8 ml/m2 IVC diam: 2.1 cm RVD1 (basal): 3.4 cm TAPSE: 2.1 cm Doppler Measurements & Calculations Ao V2 max: 155.0 cm/sec LVOT Max Ronnie: 111.6 cm/sec Ao V2 mean: 107.7 cm/sec LV V1 max P.0 mmHg Ao max P.6 mmHg LV V1 VTI: 25.5 cm Ao mean P.0 mmHg ANNETTE(I,D): 2.0 cm2 Ao V2 VTI: 37.6 cm ANNETTE(V,D): 2.1 cm2 sev ratio: 0.68 ANNETTE indexed to BSA (cm^2/m^2): 1.0 MV E max ronnie: 77.1 cm/sec TR max ronnie: 245.9 cm/sec MV A max ronnie: 69.5 cm/sec TR max P.2 mmHg MV E/A: 1.1 PA V2 max: 64.9 cm/sec Med Peak E' Ronnie: 4.9 cm/sec PA V2 mean: 49.9 cm/sec E/E' med: 15.6 PA mean P.0 mmHg Lat Peak E' Ronnie: 6.2 cm/sec PA pr(Accel): 49.9 mmHg E/E' lat: 12.4 E/e' average: 14.0 MV dec time: 0.15 sec SV(LVOT): 74.2 ml Reading Physician:05:33 PM
--- NOTE | 2020-12-21 19:24 | DI.NM.S_ITS ---
DATE OF SERVICE: 12/21/2020 PROCEDURE PERFORMED: Pharmacologic vasodilator stress and rest myocardial perfusion imaging with gating to assess ejection fraction and regional wall motion. ORDERING PROVIDER: Dr. Harrison Williamson. INDICATIONS: The patient is a 80-year-old female with a history of paroxysmal atrial fibrillation, end-stage renal failure on hemodialysis, and several episodes of syncope. CARDIAC STRESS: Per protocol, 0.4 mg of regadenoson was infused with a normal hemodynamic response. She had no chest discomfort. Her resting ECG shows sinus rhythm with occasional PVCs. There are no significant ST-segment shifts or arrhythmias with stress except for occasional PVCs in a trigeminal pattern. Per protocol, 26.9 millicuries of technetium-99m Myoview was injected and the patient was imaged 15 minutes later using a gated SPECT acquisition protocol. Earlier in the day while at rest, she was injected with 11.8 millicuries of technetium-99m Myoview and was imaged 30 minutes later, again using a gated SPECT acquisition protocol. FINDINGS: 1. Raw data. There is fair myocardial tracer uptake although the patient was unable to raise her right arm which could produce some attenuation artifact. In addition, she was unable to lay prone. Lung/heart ratio was normal at 0.39 with a normal TID ratio of 1.00. 2. Quantitated gated SPECT: Post-stress ejection fraction is estimated at 74% without any focal wall motion abnormality. Resting ejection fraction is 70% with an end-diastolic volume of 107 mL. 3. The post-stress supine images shows a fairly normal myocardial perfusion pattern without any concerning perfusion defects. Prone imaging was unable to be achieved. The resting images show a similar perfusion pattern without any areas of obvious improvement. IMPRESSION: 1. Normal myocardial perfusion study. 2. No evidence of myocardial ischemia or previous myocardial infarction. 3. Normal left ventricular systolic function without any focal wall motion abnormality. 4. No angina or ECG evidence of ischemia with pharmacologic vasodilator stress. She had occasional PVCs, but no complex ventricular ectopy. Clementina Roque - GABRIEL/magali/mervin doc#: [id number]/job#: [id number] dd: 12/21/2020 16:31:00 dt: 12/21/2020 17:20:00 DICTATING MD/COPIES TO: Jorge L Lu MD; Harrison Williamson MD COPIES MNE: DARRICK;
== END ==
PROVIDERS: Family Provider Family Medicine; PCP Family Medicine; Referring Provider Internal Medicine Cardiovascular Disease; Visit Provider Internal Medicine Cardiovascular Disease
DX: I08.3 Combined rheumatic disorders of mitral, aortic and tricuspid valves (principal); I48.0 Paroxysmal atrial fibrillation; R55 Syncope and collapse; N18.6 End stage renal disease; Z99.2 Dependence on renal dialysis
CPT/HCPCS: 78452; 93017; 93306; A9502; J2785

== ENCOUNTER → 2020-12-31 15:53 | Outpatient (CLI) | payer MEDICARE, OTHER, SELFPAY ==
--- NOTE | 2020-12-31 15:54 | DI.MRI.S_ITS ---
PROCEDURE: MR LUMBAR SPINE WO CON INDICATIONS: Multilevel spinal stenosis TECHNIQUE: Noncontrast sagittal T1 spin echo and T2 fast echo, sagittal STIR, axial T1 and T2 fast spin echo through the lumbar spine. In cases with scoliosis, additional coronal T2 fast spin echo may be performed. COMPARISON: [facility], MR, L-SPINE WITHOUT CONTRAST, 03/21/2017, 16:29. [facility], MR, L-SPINE WITHOUT CONTRAST, 05/27/2008, 10:08. FINDINGS: Image quality: This examination is limited by involuntary motion artifact. Alignment and Curvature: Mild grade 1 anterolisthesis is seen at the L4-L5 level. Associated L4 pars defects are not definitely seen. Bone Marrow: Marrow is of normal overall signal. No acute vertebral body compression fractures. Spinal Cord: Conus medullaris terminates at the L1 level. Visualized cord demonstrates normal signal and size. Paraspinous Soft Tissues: No paravertebral masses. Bilateral renal cysts are seen, with the largest cyst seen on the right measuring at least 5.3 cm. T12-L1: Normal appearance. L1-L2: Mild loss of disc height is seen. Loss of disc signal is seen. Moderate disc bulge is seen, which is eccentric to the right. There is a right foraminal disc protrusion seen, as on series 5, image 10. Mild to moderate facet hypertrophy is seen. There is at least moderate right-sided and moderate left-sided neural foraminal narrowing seen. Mild to moderate central canal narrowing is seen. These imaging findings have progressed compared to the prior study. L2-L3: Moderate loss of disc height is seen. Loss of disc signal is seen. At least moderate disc bulge is seen. There is a superimposed central disc protrusion. Moderate facet joint hypertrophy is seen. There is moderate to severe left-sided and at least moderate right-sided neural foraminal narrowing seen. Moderate to severe central canal narrowing is seen, as on series 5, image 15. These degenerative changes are worse than in 2018. L3-L4: Moderate loss of disc height is seen. Loss of disc signal is seen. At least moderate disc bulge is seen, with a superimposed central disc protrusion. Moderate to prominent facet hypertrophy is seen. There is moderate to severe bilateral neural foraminal narrowing seen, left worse than right. There is a degree of compression seen upon the exiting nerve roots. Severe central canal narrowing is seen at this level. These degenerative changes have progressed compared to 2018. L4-L5: Moderate loss of disc height is seen. Loss of disc signal is seen. At least moderate disc bulge is seen, with a central disc extrusion, with superior migration of the disc material. Prominent facet hypertrophy is seen. There is moderate to severe bilateral neural foraminal narrowing seen. There is a degree of compression seen upon the exiting nerve roots. Severe central canal narrowing is seen at this level. Compared to 2018, these degenerative changes are progressed. L5-S1: Moderate to severe loss of disc height and disc signal can be seen. At least moderate disc bulge is seen, which is eccentric to the left. There is moderate to prominent facet hypertrophy seen, left worse than right. Moderate to severe bilateral neural foraminal narrowing is seen. There is a degree of compression seen upon the exiting nerve roots. No central canal narrowing is seen. When comparison is made with the prior images, these findings are similar. IMPRESSION: Multiple levels of lumbar spine degenerative change are seen, which are overall progressed compared to 2018. Dictated by: Sergio Cuba M.D. on 12/31/2020 at 16:27 Approved by: Sergio Cuba M.D. on 12/31/2020 at 16:32
== END ==
PROVIDERS: Family Provider Family Medicine; PCP Family Medicine; Referring Provider Physical Medicine & Rehabilitation; Visit Provider Physical Medicine & Rehabilitation
DX: M51.26 Other intervertebral disc displacement, lumbar region (principal); M47.816 Spondylosis without myelopathy or radiculopathy, lumbar region; M47.817 Spondylosis without myelopathy or radiculopathy, lumbosacral region
CPT/HCPCS: 72148

== ENCOUNTER → 2021-01-05 12:10 | Outpatient (CLI) | payer MEDICARE, OTHER, SELFPAY ==
--- NOTE | 2021-01-05 12:13 | DI.CT.S_ITS ---
PROCEDURE: CT KIDNEY URETER BLADDER (KUB) INDICATIONS: End stage renal disease TECHNIQUE: Axial sections were acquired from the lung bases to the pubic symphysis. Coronal and sagittal reformats were performed. For radiation dose reduction, the following was used: automated exposure control, adjustment of mA and/or kV according to patient size. COMPARISON: None. FINDINGS: Image quality: Excellent. Lower thorax: No consolidation or pleural effusion. Trace hiatal hernia. Heart: No cardiomegaly and pericardial effusion. Partial calcification of the mitral annulus. URINARY: Right Kidney: No hydronephrosis or substantial nephrolithiasis. A 6.1 cm hypoattenuating lesion is seen in the lower pole, most consistent with a cyst. Right Ureter: No hydroureter. Left Kidney: No hydronephrosis or substantial nephrolithiasis. 9 mm hypoattenuating lesion in the medial aspect, likely representing a cyst. Left Ureter: No hydroureter. Bladder: Normal wall thickness. No stones. ABDOMEN: Liver: Unremarkable. Gallbladder: Cholecystectomy. Biliary ducts: Unremarkable. Pancreas: Unremarkable. Spleen: Normal contour. 2.3 cm hypoattenuating lesion (series 2, image 16), which may reflect a cyst or hemangioma. Adrenal Glands: Unremarkable. Stomach and Bowel: No evidence of intestinal obstruction. Colonic diverticulosis. Normal appendix. Peritoneum: No abnormal intraperitoneal fluid. No free air. Ventral Wall: Small fat containing ventral hernia with defect measuring 1.1 cm. Abdominal Nodes: No enlarged retroperitoneal or mesenteric lymph nodes. Vessels: A splenic aneurysm is seen, measuring up to 1.4 cm. No aneurysmal dilatation of the aorta. PELVIS: Pelvic Organs: Unremarkable. Pelvic Nodes: Unremarkable. Miscellaneous: No inguinal hernias are seen. Bones: Multifocal degenerative changes. Grade 1 anterolisthesis at L4-5. IMPRESSION: 1. No acute intra-abdominal/pelvic abnormality. 2. Sigmoid diverticulosis. 3. Splenic aneurysm, measuring up to 1.4 cm. Dictated by: Clyde Woo M.D. on 01/05/2021 at 13:11 Approved by: Clyde Woo M.D. on 01/05/2021 at 13:21
== END ==
PROVIDERS: Family Provider Family Medicine; PCP Family Medicine; Referring Provider Student in an Organized Health Care Education/Training Program; Visit Provider Student in an Organized Health Care Education/Training Program
DX: N18.6 End stage renal disease (principal); I72.8 Aneurysm of other specified arteries; K57.30 Diverticulosis of large intestine without perforation or abscess without bleeding; Z90.49 Acquired absence of other specified parts of digestive tract
CPT/HCPCS: 74176

== ENCOUNTER → 2021-01-13 12:38 | Outpatient (ROUT) | payer MEDICARE, OTHER, SELFPAY ==
[2021-01-13 12:44] LABS: INR 1.5 (0.9-1.3); Prothrombin Time 17.2 SECONDS (10.1-12.7)
== END ==
PROVIDERS: Family Provider Family Medicine; PCP Family Medicine; Visit Provider Family Medicine
DX: I48.91 Unspecified atrial fibrillation (principal); Z79.01 Long term (current) use of anticoagulants
CPT/HCPCS: 85610

== ENCOUNTER 2021-03-04 16:00 | Outpatient (RCR) | payer MEDICARE, OTHER, SELFPAY ==
--- NOTE | 2020-11-25 15:15 | PT.OIE ---
Current Diagnoses Low back pain (11/25/20) Muscle weakness (generalized) (11/25/20) Chronic fatigue, unspecified (11/25/20) Past Medical History (Last Reviewed 10/21/20 @ 18:43 by Jose Kinney DO) Atrial fibrillation Chronic anticoagulation Foraminal stenosis of lumbar region Gastroesophageal reflux disease Gout H/O tubal ligation History of cardiac radiofrequency ablation Hx of cholecystectomy Hx of tonsillectomy Hypertension Past Surgical History (Last Reviewed 10/30/19 @ 16:56 by Tigre Chilel MD) H/O tubal ligation History of cardiac radiofrequency ablation Hx of cholecystectomy Hx of tonsillectomy Visit Care Team Role Provider Type Jorge L Dietz MD Attending Provider Physician Family Provider Primary Care Provider Referring Provider Specialty: Family Practice Address: [address] [place] [address], [employer] Email: [email or web address] Physical Therapy Initial Evaluation PT-OP-A Visit Information Start: 11/25/20 14:34 Freq: Status: Active Protocol: Document 11/25/20 11:15 DCW (Rec: 11/25/20 14:57 DCW [id number]) Out-Patient Physical Therapy Visit Information Visit Information Visit Type Initial Evaluation Visit Start Time 11:15 Visit Stop Time 12:00 Total Visit Minutes 45 Visit Number 1 Number of JAVA INTEGRATION DEVELOPER Visits 0 Evaluation Information Evaluation Date 11/25/20 PT-OP-B Current Condition Start: 11/25/20 14:34 Freq: Status: Active Protocol: Document 11/25/20 11:15 DCW (Rec: 11/25/20 14:57 DC [id number]) Current Condition History of Current Condition Onset Date One month Current Complaints Low back pain, weakness, shoulder pain, fatigue, difficulty ambulating History of Current Condition Pt is a 80 year old female very well known to this clinic presenting with multitude complaints today, mostly stemming from a decline in function following a fall on . Pt apparently was walking into her dialysis clinic, became very fatigued, sat down on the curb to recover. Pt notes she went to get up, and then next she knew the paramedics were there. Pt had apparently had a syncopal episode, fell, had numerous scrapes and bruises along her left side, and had to have her left arm wrapped up to allow the skin to heal. Pt notes that she was not allowed to use her left arm, so her right arm has been doing everything over the last month, resulting in severe right shoulder pain. 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 Prior Treatments and Tests Long history of prior physical therapy for various complaints Treatment Goals Patient/Caregiver Goals Return to being able to go for regular walks PT-OP-C Subjective Start: 11/25/20 14:34 Freq: Status: Active Protocol: Document 11/25/20 11:15 DCW (Rec: 11/25/20 14:57 [facility] [id number]) OP-PT Subjective Patient Comments Patient Comments Since I've started dialysis, my already limited activity has been halved. I just sit so much. I'm in constant pain. The good news is that my ability to complain about all this is still good. Patient Reported Progress Worse Patient Questionnaires Oswestry Low Back Index Oswestry Score 26/50 = 52% Oswestry Impairment 40 to 59% Impaired (Score 40- 59) OP-PT Pain Assessment Pain Assessment Grid Paper Pain Assessment Grid Completed Yes Location Lower Back Intensity 6 Scale Used Numeric (0 - 10) Left Shoulder Intensity 6 Scale Used Numeric (0 - 10) PT-OP-E Functional Tests Start: 11/25/20 14:34 Freq: Status: Active Protocol: Document 11/25/20 11:15 DCW (Rec: 11/25/20 14:57 [facility] [id number]) Functional Tests 2 Minute Walk Test Distance 243' Comments /c cane 30 Second Sit to Stand Test Score x7 PT-OP-F Manual Assessment Start: 11/25/20 14:34 Freq: Status: Active Protocol: Document 11/25/20 11:15 DCW (Rec: 11/25/20 15:02 [facility] [id number]) Manual Assessments Soft Tissue Assessment Soft Tissue Mobility Assessment Moderate-severe tinghtness with tenderness to palpation 3 /4: Wincing and withdraw along bilateral T/L paraspinals, B QL, R upper trap PT-OP-L Special Tests Start: 11/25/20 14:34 Freq: Status: Active Protocol: Document 11/25/20 11:15 DCW (Rec: 11/25/20 15:02 DCW [id number]) Special Tests Lumbar Spine Special Tests Straight Leg Raise Test Results HS tightness at 45? bilaterally Slump Test Results Negative Manual Traction Test Results Improves symptoms Compression Test Results Negative Hip Special Tests Lateral SI Compression Test Results Negative Anterior SI Sheer Test Results Negative Piriformis Test Results B tenderness at Piriformis PARAS Test Results Negative PT-OP-M Strength Start: 11/25/20 14:34 Freq: Status: Active Protocol: Document 11/25/20 11:15 DCW (Rec: 11/25/20 15:02 DCW [id number]) Hip Strength Hip Manual Muscle Testing Right Flexion (L2) 4- Good- Extension (S1) 4- Good- Abduction 3+ Fair+ Adduction 4 Good Left Flexion (L2) 3+ Fair+ Extension (S1) 3+ Fair+ Abduction 3+ Fair+ Adduction 4- Good- Knee Strength Knee Manual Muscle Testing Right Flexion (S2) 3+ Fair+ Extension (L3) 3+ Fair+ Left Flexion (S2) 4- Good- Extension (L3) 4- Good- Ankle/Foot Strength Ankle and Foot Manual Muscle Testing Right Dorsiflexion (L4) 4- Good- Plantarflexion (S1) 3+ Fair+ Left Dorsiflexion (L4) 4- Good- Plantarflexion (S1) 3+ Fair+ PT-OP-T Assessment and Plan Start: 11/25/20 14:34 Freq: Status: Active Protocol: Document 11/25/20 11:15 DCW (Rec: 11/25/20 15:15 [facility] [id number]) Physical Therapy Assessment Rehab Potential Rehabilitation Potential Fair Evaluation Complexity Number of Personal Factors/Comorbidities 3 or More Number of Body Systems Impaired 4 or More Clinical Presentation at Evaluation Evolving Impairments Impairments Activity Tolerance,Functional Activities,Functional Mobility ,Gait,Pain,ROM,Soft Tissue Mobility,Strength Other Concerns Fall Risk Yes, history of syncope/falls Goals Three Impairment Pt scores a 7 on the 30 sit to stand test Distribution Manager Goal (LTG) According to the CDC women 70- 79 who score <10 on the 30 second sit to stand test are at an increased risk of falls. Pt to score >9 on the 30 second sit to stand test to demonstrate decreased falls risk. LTG Duration 01/25/21 Two Impairment Pt presents with signficant lower extremity weakness Distribution Manager Goal (LTG) Pt to improve LE strength to at least 4/5 in all planes in order to enable her to get into her truck without putting increased stress on her shoulder LTG Duration 01/25/21 One Impairment Pt does not have an appropriate HEP Short Term Goal (STG) Pt to be independent and compliant with an appropriate HEP STG Duration 12/25/20 Assessment Summary Assessment Pt presents with significant low back and right shoulder pain, increased falls risk, deconditioning, weakness, and increased T/L paraspinal tone. Pt may benefit from skilled therapy focusing on LE strengthening, STM, increased activity toelrance, and improving pain control. 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 Physical Therapy Plan Frequency and Duration Frequency of Treatment 2x/Week Duration of Treatment Two months Plan of Care Start Date 11/25/20 Plan of Care End Date 01/25/21 Therapeutic Interventions Therapeutic Interventions Balance Training,Gait Training ,Home Exercise Program,Manual Therapy,Patient/Caregiver Education,Self-Care/Home Management,Soft Tissue Mobilization,Therapeutic Activities,Therapeutic Exercises Modalities Cold Pack/Ice Massage,Electric Stimulation,Hot Packs, Ultrasound Next Visit Focus/Plan Next Note Type Treatment Note Next Visit Plan Strengthening, STM, pain- control modalities, gait training, increased activity tolerance
--- NOTE | 2020-11-25 15:16 | PT.OPPOC ---
Physical, Occupational & Speech Therapy At [facility] Current Diagnoses Low back pain (11/25/20) Muscle weakness (generalized) (11/25/20) Chronic fatigue, unspecified (11/25/20) Visit Care Team Role Provider Type Jorge L Dietz MD Attending Provider Physician Family Provider Primary Care Provider Referring Provider Specialty: Family Practice Address: [address] [place] [address], [facility] [place], [facility] Email: [email or web address] Plan Of Care PT-OP-T Assessment and Plan Start: 11/25/20 14:34 Freq: Status: Active Protocol: Document 11/25/20 11:15 DCW (Rec: 11/25/20 15:15 DCW [id number]) Physical Therapy Assessment Rehab Potential Rehabilitation Potential Fair Evaluation Complexity Number of Personal Factors/Comorbidities 3 or More Number of Body Systems Impaired 4 or More Clinical Presentation at Evaluation Evolving Impairments Impairments Activity Tolerance,Functional Activities,Functional Mobility ,Gait,Pain,ROM,Soft Tissue Mobility,Strength Other Concerns Fall Risk Yes, history of syncope/falls Goals Three Impairment Pt scores a 7 on the 30 sit to stand test Health Center Assistant Goal (LTG) According to the CDC women 70- 79 who score <10 on the 30 second sit to stand test are at an increased risk of falls. Pt to score >9 on the 30 second sit to stand test to demonstrate decreased falls risk. LTG Duration 01/25/21 Two Impairment Pt presents with signficant lower extremity weakness Senior Care Goal (LTG) Pt to improve LE strength to at least 4/5 in all planes in order to enable her to get into her truck without putting increased stress on her shoulder LTG Duration 01/25/21 One Impairment Pt does not have an appropriate HEP Short Term Goal (STG) Pt to be independent and compliant with an appropriate HEP STG Duration 12/25/20 Assessment Summary Assessment Pt presents with significant low back and right shoulder pain, increased falls risk, deconditioning, weakness, and increased T/L paraspinal tone. Pt may benefit from skilled therapy focusing on LE strengthening, STM, increased activity toelrance, and improving pain control. 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 Physical Therapy Plan Frequency and Duration Frequency of Treatment 2x/Week Duration of Treatment Two months Plan of Care Start Date 11/25/20 Plan of Care End Date 01/25/21 Therapeutic Interventions Therapeutic Interventions Balance Training,Gait Training ,Home Exercise Program,Manual Therapy,Patient/Caregiver Education,Self-Care/Home Management,Soft Tissue Mobilization,Therapeutic Activities,Therapeutic Exercises Modalities Cold Pack/Ice Massage,Electric Stimulation,Hot Packs, Ultrasound Next Visit Focus/Plan Next Note Type Treatment Note Next Visit Plan Strengthening, STM, pain- control modalities, gait training, increased activity tolerance Plan of Care Dates Plan of Care Start Date 11/25/20 Plan of Care End Date 01/25/21 Electronically Signed by: Geremias Adam, PT 11/25/20 [id number] Please Sign and Return: I have reviewed this Plan of Care and certify that the skilled therapy services above are required to meet the patient?s needs. Physician Signature Date Printed Name and Credentials Clinical Instructor Signature Printed Name and Credentials
--- NOTE | 2020-11-27 10:31 | PT.OTN ---
Current Diagnoses Low back pain (11/27/20) Muscle weakness (generalized) (11/27/20) Chronic fatigue, unspecified (11/27/20) Physical Therapy Treatment Note PT-OP-A Visit Information Start: 11/25/20 14:34 Freq: Status: Active Protocol: Document 11/27/20 09:45 DCW (Rec: 11/27/20 10:30 DCW [id number]) Out-Patient Physical Therapy Visit Information Visit Information Visit Type Treatment Note Visit Start Time 09:45 Visit Stop Time 10:35 Total Visit Minutes 50 Visit Number 2 Number of RN L AND D Visits 0 Evaluation Information Evaluation Date 11/25/20 PT-OP-B Current Condition Start: 11/25/20 14:34 Freq: Status: Active Protocol: Document 11/25/20 11:15 DCW (Rec: 11/25/20 14:57 DCW [id number]) Current Condition History of Current Condition Onset Date One month Current Complaints Low back pain, weakness, shoulder pain, fatigue, difficulty ambulating History of Current Condition Pt is a 80 year old female very well known to this clinic presenting with multitude complaints today, mostly stemming from a decline in function following a fall on . Pt apparently was walking into her dialysis clinic, became very fatigued, sat down on the curb to recover. Pt notes she went to get up, and then next she knew the paramedics were there. Pt had apparently had a syncopal episode, fell, had numerous scrapes and bruises along her left side, and had to have her left arm wrapped up to allow the skin to heal. Pt notes that she was not allowed to use her left arm, so her right arm has been doing everything over the last month, resulting in severe right shoulder pain. 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 Prior Treatments and Tests Long history of prior physical therapy for various complaints Treatment Goals Patient/Caregiver Goals Return to being able to go for regular walks PT-OP-C Subjective Start: 11/25/20 14:34 Freq: Status: Active Protocol: Document 11/27/20 09:45 DCW (Rec: 11/27/20 10:30 DCW [id number]) OP-PT Subjective Patient Comments Patient Comments I'm actually feeling better today. PT-OP-E Functional Tests Start: 11/25/20 14:34 Freq: Status: Active Protocol: Document 11/25/20 11:15 DCW (Rec: 11/25/20 14:57 DCW [id number]) Functional Tests 2 Minute Walk Test Distance 243' Comments /c cane 30 Second Sit to Stand Test Score x7 PT-OP-F Manual Assessment Start: 11/25/20 14:34 Freq: Status: Active Protocol: Document 11/25/20 11:15 DCW (Rec: 11/25/20 15:02 DCW [id number]) Manual Assessments Soft Tissue Assessment Soft Tissue Mobility Assessment Moderate-severe tinghtness with tenderness to palpation 3 /4: Wincing and withdraw along bilateral T/L paraspinals, B QL, R upper trap PT-OP-L Special Tests Start: 11/25/20 14:34 Freq: Status: Active Protocol: Document 11/25/20 11:15 DCW (Rec: 11/25/20 15:02 DCW [id number]) Special Tests Lumbar Spine Special Tests Straight Leg Raise Test Results HS tightness at 45? bilaterally Slump Test Results Negative Manual Traction Test Results Improves symptoms Compression Test Results Negative Hip Special Tests Lateral SI Compression Test Results Negative Anterior SI Sheer Test Results Negative Piriformis Test Results B tenderness at Piriformis PARAS Test Results Negative PT-OP-M Strength Start: 11/25/20 14:34 Freq: Status: Active Protocol: Document 11/25/20 11:15 DCW (Rec: 11/25/20 15:02 DCW [id number]) Hip Strength Hip Manual Muscle Testing Right Flexion (L2) 4- Good- Extension (S1) 4- Good- Abduction 3+ Fair+ Adduction 4 Good Left Flexion (L2) 3+ Fair+ Extension (S1) 3+ Fair+ Abduction 3+ Fair+ Adduction 4- Good- Knee Strength Knee Manual Muscle Testing Right Flexion (S2) 3+ Fair+ Extension (L3) 3+ Fair+ Left Flexion (S2) 4- Good- Extension (L3) 4- Good- Ankle/Foot Strength Ankle and Foot Manual Muscle Testing Right Dorsiflexion (L4) 4- Good- Plantarflexion (S1) 3+ Fair+ Left Dorsiflexion (L4) 4- Good- Plantarflexion (S1) 3+ Fair+ PT-OP-Q Treatments Start: 11/25/20 14:34 Freq: Status: Active Protocol: Document 11/27/20 09:45 DCW (Rec: 11/27/20 10:30 DCW [id number]) Cardio Equipment Recumbent Elliptical (Biodex) Duration (Minutes) 5 Resistance 2 Seat Position 8 Gym Equipment Shuttle Recovery Bilateral Heel Raises Resistance 50# Unilateral Squats Resistance 37# Reps/Time x20 Bilateral Squats Resistance 75# Reps/Time x20 Therapeutic Exercises Standing Exercises 4 Standing Exercise Name TKE Side bilateral Resistance Lv 3 Equipment Used T-band 3 Standing Exercise Name Step-ups Side bilateral Equipment Used 4 step 2 Standing Exercise Name Toe-taps Side bilateral Resistance 4# Equipment Used 6 step 1 Standing Exercise Name Hamstring curls Side bilateral Resistance 4# Neuro Re-Education Treatment Balance Activities 1 Details Foam stance Surface Turcios foam Comments EO/EC PT-OP-R Modalities Start: 11/25/20 14:34 Freq: Status: Active Protocol: Document 11/27/20 09:45 DCW (Rec: 11/27/20 10:31 DCW [id number]) Hot Pack/Cold Pack Treatment Hot Pack Location low back Patient Position Hooklying Treatment Duration (minutes) 10 Patient Tolerance Good PT-OP-T Assessment and Plan Start: 11/25/20 14:34 Freq: Status: Active Protocol: Document 11/27/20 09:45 DCW (Rec: 11/27/20 10:30 DCW [id number]) Physical Therapy Assessment Impairments Impairments Activity Tolerance,Functional Activities,Functional Mobility ,Gait,Pain,ROM,Soft Tissue Mobility,Strength Goals Three Impairment Pt scores a 7 on the 30 sit to stand test Craps Manager Goal (LTG) According to the CDC women 70- 79 who score <10 on the 30 second sit to stand test are at an increased risk of falls. Pt to score >9 on the 30 second sit to stand test to demonstrate decreased falls risk. LTG Duration 01/25/21 Two Impairment Pt presents with signficant lower extremity weakness Care Home Goal (LTG) Pt to improve LE strength to at least 4/5 in all planes in order to enable her to get into her truck without putting increased stress on her shoulder LTG Duration 01/25/21 One Impairment Pt does not have an appropriate HEP Short Term Goal (STG) Pt to be independent and compliant with an appropriate HEP STG Duration 12/25/20 Assessment Summary Assessment Pt fatigued quickly today, required multiple rest breaks during exercise. Pt slightly frustrated that she has declined so significantly since her last round of therapy. Physical Therapy Plan Frequency and Duration Frequency of Treatment 2x/Week Duration of Treatment Two months Plan of Care Start Date 11/25/20 Plan of Care End Date 01/25/21 Therapeutic Interventions Therapeutic Interventions Balance Training,Gait Training ,Home Exercise Program,Manual Therapy,Patient/Caregiver Education,Self-Care/Home Management,Soft Tissue Mobilization,Therapeutic Activities,Therapeutic Exercises Modalities Cold Pack/Ice Massage,Electric Stimulation,Hot Packs, Ultrasound Next Visit Focus/Plan Next Note Type Treatment Note Next Visit Plan Strengthening, STM, pain- control modalities, gait training, increased activity tolerance
--- NOTE | 2020-11-30 13:01 | PT.OTN ---
Current Diagnoses Low back pain (11/30/20) Muscle weakness (generalized) (11/30/20) Chronic fatigue, unspecified (11/30/20) Physical Therapy Treatment Note PT-OP-A Visit Information Start: 11/25/20 14:34 Freq: Status: Active Protocol: Document 11/30/20 11:54 MA (Rec: 11/30/20 12:51 MA [id number]) Out-Patient Physical Therapy Visit Information Visit Information Visit Type Treatment Note Visit Start Time 11:58 Visit Stop Time 12:55 Total Visit Minutes 57 Visit Number 3 Number of CLAY TEMPERER Visits 1 PT-OP-B Current Condition Start: 11/25/20 14:34 Freq: Status: Active Protocol: Document 11/25/20 11:15 DCW (Rec: 11/25/20 14:57 DCW [id number]) Current Condition History of Current Condition Onset Date One month Current Complaints Low back pain, weakness, shoulder pain, fatigue, difficulty ambulating History of Current Condition Pt is a 80 year old female very well known to this clinic presenting with multitude complaints today, mostly stemming from a decline in function following a fall on . Pt apparently was walking into her dialysis clinic, became very fatigued, sat down on the curb to recover. Pt notes she went to get up, and then next she knew the paramedics were there. Pt had apparently had a syncopal episode, fell, had numerous scrapes and bruises along her left side, and had to have her left arm wrapped up to allow the skin to heal. Pt notes that she was not allowed to use her left arm, so her right arm has been doing everything over the last month, resulting in severe right shoulder pain. 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 Prior Treatments and Tests Long history of prior physical therapy for various complaints Treatment Goals Patient/Caregiver Goals Return to being able to go for regular walks PT-OP-C Subjective Start: 11/25/20 14:34 Freq: Status: Active Protocol: Document 11/30/20 11:54 MA (Rec: 11/30/20 12:51 MA [id number]) OP-PT Subjective Patient Comments Patient Comments Pt states that she feels very tired today, similar to the day when she passed out 7 weeks ago. Her R shoulder is also very painful today. PT-OP-E Functional Tests Start: 11/25/20 14:34 Freq: Status: Active Protocol: Document 11/25/20 11:15 DCW (Rec: 11/25/20 14:57 DCW [id number]) Functional Tests 2 Minute Walk Test Distance 243' Comments /c cane 30 Second Sit to Stand Test Score x7 PT-OP-F Manual Assessment Start: 11/25/20 14:34 Freq: Status: Active Protocol: Document 11/25/20 11:15 DCW (Rec: 11/25/20 15:02 DCW [id number]) Manual Assessments Soft Tissue Assessment Soft Tissue Mobility Assessment Moderate-severe tinghtness with tenderness to palpation 3 /4: Wincing and withdraw along bilateral T/L paraspinals, B QL, R upper trap PT-OP-L Special Tests Start: 11/25/20 14:34 Freq: Status: Active Protocol: Document 11/25/20 11:15 DCW (Rec: 11/25/20 15:02 DCW [id number]) Special Tests Lumbar Spine Special Tests Straight Leg Raise Test Results HS tightness at 45? bilaterally Slump Test Results Negative Manual Traction Test Results Improves symptoms Compression Test Results Negative Hip Special Tests Lateral SI Compression Test Results Negative Anterior SI Sheer Test Results Negative Piriformis Test Results B tenderness at Piriformis PARAS Test Results Negative PT-OP-M Strength Start: 11/25/20 14:34 Freq: Status: Active Protocol: Document 11/25/20 11:15 DCW (Rec: 11/25/20 15:02 DCW [id number]) Hip Strength Hip Manual Muscle Testing Right Flexion (L2) 4- Good- Extension (S1) 4- Good- Abduction 3+ Fair+ Adduction 4 Good Left Flexion (L2) 3+ Fair+ Extension (S1) 3+ Fair+ Abduction 3+ Fair+ Adduction 4- Good- Knee Strength Knee Manual Muscle Testing Right Flexion (S2) 3+ Fair+ Extension (L3) 3+ Fair+ Left Flexion (S2) 4- Good- Extension (L3) 4- Good- Ankle/Foot Strength Ankle and Foot Manual Muscle Testing Right Dorsiflexion (L4) 4- Good- Plantarflexion (S1) 3+ Fair+ Left Dorsiflexion (L4) 4- Good- Plantarflexion (S1) 3+ Fair+ PT-OP-Q Treatments Start: 11/25/20 14:34 Freq: Status: Active Protocol: Document 11/30/20 11:54 MA (Rec: 11/30/20 12:51 MA [id number]) Cardio Equipment Recumbent Elliptical (Biodex) Duration (Minutes) 5 Resistance 2 Seat Position 8 Gym Equipment Shuttle Recovery Bilateral Heel Raises Resistance 50# Reps/Time x10 Unilateral Squats Resistance 37# Reps/Time x20 Bilateral Squats Resistance 75# Reps/Time x20 Therapeutic Exercises Sitting Exercises Stretch Sitting Exercise Name HS stretch due to cramping Side bilateral Reps/Minutes 30 x2 Standing Exercises 3 Standing Exercise Name Step-ups Side bilateral Equipment Used 4 step Comments single rail 2 Standing Exercise Name Toe-taps Side bilateral Resistance 4# Equipment Used 6 step Manual Therapy Treatment Soft Tissue Mobilization Rotator Cuff Body Location supraspinatus Mobilization Type Sustained Pressure,Trigger Point Release Intensity/Depth Moderate Body Position Hooklying PT-OP-R Modalities Start: 11/25/20 14:34 Freq: Status: Active Protocol: Document 11/30/20 11:54 MA (Rec: 11/30/20 12:51 MA [id number]) Hot Pack/Cold Pack Treatment Hot Pack Location low back, R shd Patient Position Hooklying Treatment Duration (minutes) 15 Patient Tolerance Good PT-OP-T Assessment and Plan Start: 11/25/20 14:34 Freq: Status: Active Protocol: Document 11/30/20 11:54 MA (Rec: 11/30/20 12:51 MA [id number]) Physical Therapy Assessment Goals Three Impairment Pt scores a 7 on the 30 sit to stand test Skilled Nursing Goal (LTG) According to the CDC women 70- 79 who score <10 on the 30 second sit to stand test are at an increased risk of falls. Pt to score >9 on the 30 second sit to stand test to demonstrate decreased falls risk. LTG Duration 01/25/21 Two Impairment Pt presents with signficant lower extremity weakness Wildlife Rehabilitator Goal (LTG) Pt to improve LE strength to at least 4/5 in all planes in order to enable her to get into her truck without putting increased stress on her shoulder LTG Duration 01/25/21 One Impairment Pt does not have an appropriate HEP Short Term Goal (STG) Pt to be independent and compliant with an appropriate HEP STG Duration 12/25/20 Assessment Summary Assessment Pt continues to fatigue quickly and need rest breaks. She is able to complete step ups and toe taps with single rail use this session but states I don't trust myself when asked to let go of rail. She has pain along R lateral calf during LE exercises that decreases after trigger point massage to area. Her shoulder pain also decreases after STM to supraspinatus this session. Ended with hot pack to shoulder and low back for pain . Physical Therapy Plan Frequency and Duration Frequency of Treatment 2x/Week Duration of Treatment Two months Plan of Care Start Date 11/25/20 Plan of Care End Date 01/25/21 Therapeutic Interventions Therapeutic Interventions Balance Training,Gait Training ,Home Exercise Program,Manual Therapy,Patient/Caregiver Education,Self-Care/Home Management,Soft Tissue Mobilization,Therapeutic Activities,Therapeutic Exercises Modalities Cold Pack/Ice Massage,Electric Stimulation,Hot Packs, Ultrasound Next Visit Focus/Plan Next Note Type Treatment Note Next Visit Plan Strengthening, STM, pain- control modalities, gait training, increased activity tolerance
--- NOTE | 2020-12-08 12:12 | PT.OTN ---
Current Diagnoses Low back pain (12/08/20) Muscle weakness (generalized) (12/08/20) Chronic fatigue, unspecified (12/08/20) Physical Therapy Treatment Note PT-OP-A Visit Information Start: 11/25/20 14:34 Freq: Status: Active Protocol: Document 12/08/20 11:20 (Rec: 12/08/20 12:12 [id number]) Out-Patient Physical Therapy Visit Information Visit Information Visit Type Treatment Note Visit Note pt just received removal of squamous cell carcinoma on R hand. Visit Start Time 11:19 Visit Stop Time 12:12 Total Visit Minutes 53 Visit Number 4 Number of WASHTUB WORKER Visits 0 PT-OP-B Current Condition Start: 11/25/20 14:34 Freq: Status: Active Protocol: Document 11/25/20 11:15 DCW (Rec: 11/25/20 14:57 DCW [id number]) Current Condition History of Current Condition Onset Date One month Current Complaints Low back pain, weakness, shoulder pain, fatigue, difficulty ambulating History of Current Condition Pt is a 80 year old female very well known to this clinic presenting with multitude complaints today, mostly stemming from a decline in function following a fall on . Pt apparently was walking into her dialysis clinic, became very fatigued, sat down on the curb to recover. Pt notes she went to get up, and then next she knew the paramedics were there. Pt had apparently had a syncopal episode, fell, had numerous scrapes and bruises along her left side, and had to have her left arm wrapped up to allow the skin to heal. Pt notes that she was not allowed to use her left arm, so her right arm has been doing everything over the last month, resulting in severe right shoulder pain. 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 Prior Treatments and Tests Long history of prior physical therapy for various complaints Treatment Goals Patient/Caregiver Goals Return to being able to go for regular walks PT-OP-C Subjective Start: 11/25/20 14:34 Freq: Status: Active Protocol: Document 12/08/20 11:20 (Rec: 12/08/20 12:12 HH [id number]) OP-PT Subjective Patient Comments Patient Comments Im weak this morning. I just have a lot going on like my back, shoulders, and hips. It just never normal. PT-OP-E Functional Tests Start: 11/25/20 14:34 Freq: Status: Active Protocol: Document 11/25/20 11:15 DCW (Rec: 11/25/20 14:57 DCW [id number]) Functional Tests 2 Minute Walk Test Distance 243' Comments /c cane 30 Second Sit to Stand Test Score x7 PT-OP-F Manual Assessment Start: 11/25/20 14:34 Freq: Status: Active Protocol: Document 11/25/20 11:15 DCW (Rec: 11/25/20 15:02 DCW [id number]) Manual Assessments Soft Tissue Assessment Soft Tissue Mobility Assessment Moderate-severe tinghtness with tenderness to palpation 3 /4: Wincing and withdraw along bilateral T/L paraspinals, B QL, R upper trap PT-OP-L Special Tests Start: 11/25/20 14:34 Freq: Status: Active Protocol: Document 11/25/20 11:15 DCW (Rec: 11/25/20 15:02 DCW [id number]) Special Tests Lumbar Spine Special Tests Straight Leg Raise Test Results HS tightness at 45? bilaterally Slump Test Results Negative Manual Traction Test Results Improves symptoms Compression Test Results Negative Hip Special Tests Lateral SI Compression Test Results Negative Anterior SI Sheer Test Results Negative Piriformis Test Results B tenderness at Piriformis PARAS Test Results Negative PT-OP-M Strength Start: 11/25/20 14:34 Freq: Status: Active Protocol: Document 11/25/20 11:15 DCW (Rec: 11/25/20 15:02 DCW [id number]) Hip Strength Hip Manual Muscle Testing Right Flexion (L2) 4- Good- Extension (S1) 4- Good- Abduction 3+ Fair+ Adduction 4 Good Left Flexion (L2) 3+ Fair+ Extension (S1) 3+ Fair+ Abduction 3+ Fair+ Adduction 4- Good- Knee Strength Knee Manual Muscle Testing Right Flexion (S2) 3+ Fair+ Extension (L3) 3+ Fair+ Left Flexion (S2) 4- Good- Extension (L3) 4- Good- Ankle/Foot Strength Ankle and Foot Manual Muscle Testing Right Dorsiflexion (L4) 4- Good- Plantarflexion (S1) 3+ Fair+ Left Dorsiflexion (L4) 4- Good- Plantarflexion (S1) 3+ Fair+ PT-OP-Q Treatments Start: 11/25/20 14:34 Freq: Status: Active Protocol: Document 12/08/20 11:20 HH (Rec: 12/08/20 12:12 [id number]) Cardio Equipment Recumbent Stepper (Sci-Fit) Duration (Minutes) 8 Resistance 2.5 Seat Position 10 Other 1.00 mile Gym Equipment Shuttle Recovery Unilateral Squats Resistance 37# Reps/Time x20 Bilateral Squats Resistance 75# Reps/Time x20 Therapeutic Exercises Sitting Exercises OH andrei Sitting Exercise Name flexion Side bilateral Reps/Minutes 4 mins Comments pinching sensation up to 120 degrees. Manual Therapy Treatment Soft Tissue Mobilization Rotator Cuff Body Location supraspinatus Mobilization Type Sustained Pressure,Trigger Point Release Intensity/Depth Moderate Body Position Hooklying Comments significant toncity and pain at proximal and distal tendon PT-OP-R Modalities Start: 11/25/20 14:34 Freq: Status: Active Protocol: Document 12/08/20 11:20 HH (Rec: 12/08/20 12:12 [id number]) Hot Pack/Cold Pack Treatment Hot Pack Location low back, R shd Patient Position Hooklying Treatment Duration (minutes) 15 Patient Tolerance Good PT-OP-T Assessment and Plan Start: 11/25/20 14:34 Freq: Status: Active Protocol: Document 12/08/20 11:20 HH (Rec: 12/08/20 12:12 [id number]) Physical Therapy Assessment Goals Three Impairment Pt scores a 7 on the 30 sit to stand test Reporting Coordinator Goal (LTG) According to the CDC women 70- 79 who score <10 on the 30 second sit to stand test are at an increased risk of falls. Pt to score >9 on the 30 second sit to stand test to demonstrate decreased falls risk. LTG Duration 01/25/21 Two Impairment Pt presents with signficant lower extremity weakness Reporting Coordinator Goal (LTG) Pt to improve LE strength to at least 4/5 in all planes in order to enable her to get into her truck without putting increased stress on her shoulder LTG Duration 01/25/21 One Impairment Pt does not have an appropriate HEP Short Term Goal (STG) Pt to be independent and compliant with an appropriate HEP STG Duration 12/25/20 Assessment Summary Assessment Pt's R shoulder seems to have suprasinatus tendonitis/ possible tear. She has difficulty with reaching behind her back, abduction. Recommended her to acquire OH andrei for AAROM. Will reassess her tolerance next visit. Physical Therapy Plan Frequency and Duration Frequency of Treatment 2x/Week Duration of Treatment Two months Plan of Care Start Date 11/25/20 Plan of Care End Date 01/25/21 Therapeutic Interventions Therapeutic Interventions Balance Training,Gait Training ,Home Exercise Program,Manual Therapy,Patient/Caregiver Education,Self-Care/Home Management,Soft Tissue Mobilization,Therapeutic Activities,Therapeutic Exercises Modalities Cold Pack/Ice Massage,Electric Stimulation,Hot Packs, Ultrasound Next Visit Focus/Plan Next Note Type Treatment Note Next Visit Plan Strengthening, STM, pain- control modalities, gait training, increased activity tolerance
--- NOTE | 2020-12-10 12:00 | PT.OTN ---
Current Diagnoses Low back pain (12/10/20) Muscle weakness (generalized) (12/10/20) Chronic fatigue, unspecified (12/10/20) Physical Therapy Treatment Note PT-OP-A Visit Information Start: 11/25/20 14:34 Freq: Status: Active Protocol: Document 12/10/20 11:19 DCW (Rec: 12/10/20 12:00 HIW [id number]) Out-Patient Physical Therapy Visit Information Visit Information Visit Type Treatment Note Visit Start Time 11:19 Visit Stop Time 12:11 Total Visit Minutes 52 Visit Number 5 Number of X RAY SERVICE ENGINEER Visits 0 Evaluation Information Evaluation Date 11/25/20 PT-OP-B Current Condition Start: 11/25/20 14:34 Freq: Status: Active Protocol: Document 11/25/20 11:15 DCW (Rec: 11/25/20 14:57 DCW [id number]) Current Condition History of Current Condition Onset Date One month Current Complaints Low back pain, weakness, shoulder pain, fatigue, difficulty ambulating History of Current Condition Pt is a 80 year old female very well known to this clinic presenting with multitude complaints today, mostly stemming from a decline in function following a fall on . Pt apparently was walking into her dialysis clinic, became very fatigued, sat down on the curb to recover. Pt notes she went to get up, and then next she knew the paramedics were there. Pt had apparently had a syncopal episode, fell, had numerous scrapes and bruises along her left side, and had to have her left arm wrapped up to allow the skin to heal. Pt notes that she was not allowed to use her left arm, so her right arm has been doing everything over the last month, resulting in severe right shoulder pain. 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 PT-OP-E Functional Tests Start: 11/25/20 14:34 Freq: Status: Active Protocol: Document 11/25/20 11:15 DCW (Rec: 11/25/20 14:57 DCW [id number]) Functional Tests 2 Minute Walk Test Distance 243' Comments /c cane 30 Second Sit to Stand Test Score x7 PT-OP-F Manual Assessment Start: 11/25/20 14:34 Freq: Status: Active Protocol: Document 11/25/20 11:15 DCW (Rec: 11/25/20 15:02 DCW [id number]) Manual Assessments Soft Tissue Assessment Soft Tissue Mobility Assessment Moderate-severe tinghtness with tenderness to palpation 3 /4: Wincing and withdraw along bilateral T/L paraspinals, B QL, R upper trap PT-OP-L Special Tests Start: 11/25/20 14:34 Freq: Status: Active Protocol: Document 11/25/20 11:15 DCW (Rec: 11/25/20 15:02 DCW [id number]) Special Tests Lumbar Spine Special Tests Straight Leg Raise Test Results HS tightness at 45? bilaterally Slump Test Results Negative Manual Traction Test Results Improves symptoms Compression Test Results Negative Hip Special Tests Lateral SI Compression Test Results Negative Anterior SI Sheer Test Results Negative Piriformis Test Results B tenderness at Piriformis PARAS Test Results Negative PT-OP-M Strength Start: 11/25/20 14:34 Freq: Status: Active Protocol: Document 11/25/20 11:15 DCW (Rec: 11/25/20 15:02 DCW [id number]) Hip Strength Hip Manual Muscle Testing Right Flexion (L2) 4- Good- Extension (S1) 4- Good- Abduction 3+ Fair+ Adduction 4 Good Left Flexion (L2) 3+ Fair+ Extension (S1) 3+ Fair+ Abduction 3+ Fair+ Adduction 4- Good- Knee Strength Knee Manual Muscle Testing Right Flexion (S2) 3+ Fair+ Extension (L3) 3+ Fair+ Left Flexion (S2) 4- Good- Extension (L3) 4- Good- Ankle/Foot Strength Ankle and Foot Manual Muscle Testing Right Dorsiflexion (L4) 4- Good- Plantarflexion (S1) 3+ Fair+ Left Dorsiflexion (L4) 4- Good- Plantarflexion (S1) 3+ Fair+ PT-OP-Q Treatments Start: 11/25/20 14:34 Freq: Status: Active Protocol: Document 12/10/20 11:19 DCW (Rec: 12/10/20 12:00 DCW [id number]) Cardio Equipment Recumbent Elliptical (Biodex) Duration (Minutes) 6 Resistance 4 Seat Position 8 Gym Equipment Shuttle Recovery Bilateral Heel Raises Resistance 50# Reps/Time x10 Unilateral Squats Resistance 37# Reps/Time x20 Bilateral Squats Resistance 75# Reps/Time x20 Therapeutic Exercises Sitting Exercises OH andrei Sitting Exercise Name flexion Side bilateral Reps/Minutes 4 mins Comments pinching sensation up to 120 degrees. Manual Therapy Treatment Soft Tissue Mobilization Rotator Cuff Body Location supraspinatus Mobilization Type Sustained Pressure,Trigger Point Release Intensity/Depth Moderate Body Position Hooklying PT-OP-R Modalities Start: 11/25/20 14:34 Freq: Status: Active Protocol: Document 12/10/20 11:19 DCW (Rec: 12/10/20 12:00 DCW [id number]) Hot Pack/Cold Pack Treatment Hot Pack Location low back, R shd Patient Position Hooklying Treatment Duration (minutes) 15 Patient Tolerance Good PT-OP-T Assessment and Plan Start: 11/25/20 14:34 Freq: Status: Active Protocol: Document 12/10/20 11:19 DCW (Rec: 12/10/20 12:00 DCW [id number]) Physical Therapy Assessment Impairments Impairments Activity Tolerance,Functional Activities,Functional Mobility ,Gait,Pain,ROM,Soft Tissue Mobility,Strength Goals Three Impairment Pt scores a 7 on the 30 sit to stand test [facility] Goal (LTG) According to the CDC women 70- 79 who score <10 on the 30 second sit to stand test are at an increased risk of falls. Pt to score >9 on the 30 second sit to stand test to demonstrate decreased falls risk. LTG Duration 01/25/21 Two Impairment Pt presents with signficant lower extremity weakness [facility] Goal (LTG) Pt to improve LE strength to at least 4/5 in all planes in order to enable her to get into her truck without putting increased stress on her shoulder LTG Duration 01/25/21 One Impairment Pt does not have an appropriate HEP Short Term Goal (STG) Pt to be independent and compliant with an appropriate HEP STG Duration 12/25/20 Assessment Summary Assessment Pt noted her right shoulder has been feeling better after getting it worked on the last few sessions, improved ROM. Physical Therapy Plan Frequency and Duration Frequency of Treatment 2x/Week Duration of Treatment Two months Plan of Care Start Date 11/25/20 Plan of Care End Date 01/25/21 Therapeutic Interventions Therapeutic Interventions Balance Training,Gait Training ,Home Exercise Program,Manual Therapy,Patient/Caregiver Education,Self-Care/Home Management,Soft Tissue Mobilization,Therapeutic Activities,Therapeutic Exercises Modalities Cold Pack/Ice Massage,Electric Stimulation,Hot Packs, Ultrasound Next Visit Focus/Plan Next Note Type Treatment Note Next Visit Plan Strengthening, STM, pain- control modalities, gait training, increased activity tolerance
--- NOTE | 2020-12-14 16:37 | PT.OTN ---
Current Diagnoses Low back pain (12/14/20) Muscle weakness (generalized) (12/14/20) Chronic fatigue, unspecified (12/14/20) Physical Therapy Treatment Note PT-OP-A Visit Information Start: 11/25/20 14:34 Freq: Status: Active Protocol: Document 12/14/20 16:27 (Rec: 12/14/20 16:37 [id number]) Out-Patient Physical Therapy Visit Information Visit Information Visit Type Treatment Note Visit Note KX mod Visit Start Time 11:16 Visit Stop Time 12:10 Total Visit Minutes 54 Visit Number 6 Number of AIRBRUSH ARTIST Visits 0 PT-OP-B Current Condition Start: 11/25/20 14:34 Freq: Status: Active Protocol: Document 11/25/20 11:15 DCW (Rec: 11/25/20 14:57 DCW [id number]) Current Condition History of Current Condition Onset Date One month Current Complaints Low back pain, weakness, shoulder pain, fatigue, difficulty ambulating History of Current Condition Pt is a 80 year old female very well known to this clinic presenting with multitude complaints today, mostly stemming from a decline in function following a fall on . Pt apparently was walking into her dialysis clinic, became very fatigued, sat down on the curb to recover. Pt notes she went to get up, and then next she knew the paramedics were there. Pt had apparently had a syncopal episode, fell, had numerous scrapes and bruises along her left side, and had to have her left arm wrapped up to allow the skin to heal. Pt notes that she was not allowed to use her left arm, so her right arm has been doing everything over the last month, resulting in severe right shoulder pain. 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 Prior Treatments and Tests Long history of prior physical therapy for various complaints Treatment Goals Patient/Caregiver Goals Return to being able to go for regular walks PT-OP-C Subjective Start: 11/25/20 14:34 Freq: Status: Active Protocol: Document 12/14/20 16:27 (Rec: 12/14/20 16:37 [id number]) OP-PT Subjective Patient Comments Patient Comments My shoulder is moving and getting better but it's still painful 07/20. I am also very tired and R knee has been hurting lately/ PT-OP-E Functional Tests Start: 11/25/20 14:34 Freq: Status: Active Protocol: Document 11/25/20 11:15 DCW (Rec: 11/25/20 14:57 DCW [id number]) Functional Tests 2 Minute Walk Test Distance 243' Comments /c cane 30 Second Sit to Stand Test Score x7 PT-OP-F Manual Assessment Start: 11/25/20 14:34 Freq: Status: Active Protocol: Document 11/25/20 11:15 DCW (Rec: 11/25/20 15:02 DCW [id number]) Manual Assessments Soft Tissue Assessment Soft Tissue Mobility Assessment Moderate-severe tinghtness with tenderness to palpation 3 /4: Wincing and withdraw along bilateral T/L paraspinals, B QL, R upper trap PT-OP-L Special Tests Start: 11/25/20 14:34 Freq: Status: Active Protocol: Document 11/25/20 11:15 DCW (Rec: 11/25/20 15:02 DCW [id number]) Special Tests Lumbar Spine Special Tests Straight Leg Raise Test Results HS tightness at 45? bilaterally Slump Test Results Negative Manual Traction Test Results Improves symptoms Compression Test Results Negative Hip Special Tests Lateral SI Compression Test Results Negative Anterior SI Sheer Test Results Negative Piriformis Test Results B tenderness at Piriformis PARAS Test Results Negative PT-OP-M Strength Start: 11/25/20 14:34 Freq: Status: Active Protocol: Document 11/25/20 11:15 DCW (Rec: 11/25/20 15:02 DCW [id number]) Hip Strength Hip Manual Muscle Testing Right Flexion (L2) 4- Good- Extension (S1) 4- Good- Abduction 3+ Fair+ Adduction 4 Good Left Flexion (L2) 3+ Fair+ Extension (S1) 3+ Fair+ Abduction 3+ Fair+ Adduction 4- Good- Knee Strength Knee Manual Muscle Testing Right Flexion (S2) 3+ Fair+ Extension (L3) 3+ Fair+ Left Flexion (S2) 4- Good- Extension (L3) 4- Good- Ankle/Foot Strength Ankle and Foot Manual Muscle Testing Right Dorsiflexion (L4) 4- Good- Plantarflexion (S1) 3+ Fair+ Left Dorsiflexion (L4) 4- Good- Plantarflexion (S1) 3+ Fair+ PT-OP-Q Treatments Start: 11/25/20 14:34 Freq: Status: Active Protocol: Document 12/14/20 16:27 HH (Rec: 12/14/20 16:37 [id number]) Cardio Equipment Recumbent Stepper (Sci-Fit) Duration (Minutes) 8 Resistance 2.5 Seat Position 10 Other 1.00 mile Gym Equipment Shuttle Recovery Bilateral Squats Resistance 75# Reps/Time x20, report increased pain at R lateral knee Manual Therapy Treatment Soft Tissue Mobilization Rotator Cuff Body Location supraspinatus Mobilization Type Sustained Pressure,Trigger Point Release Intensity/Depth Moderate Body Position Hooklying Comments reduced pain to pressure at proximal tendon. trapezius Mobilization Type Sustained Pressure,Trigger Point Release Intensity/Depth Moderate Body Position Supine Comments TTP at L muscle belly. PT-OP-R Modalities Start: 11/25/20 14:34 Freq: Status: Active Protocol: Document 12/14/20 16:27 HH (Rec: 12/14/20 16:37 [id number]) Hot Pack/Cold Pack Treatment Hot Pack Location low back, R shd Patient Position Hooklying Treatment Duration (minutes) 15 Patient Tolerance Good PT-OP-T Assessment and Plan Start: 11/25/20 14:34 Freq: Status: Active Protocol: Document 12/14/20 16:27 (Rec: 12/14/20 16:37 [id number]) Physical Therapy Assessment Goals Three Impairment Pt scores a 7 on the 30 sit to stand test Manager Diversity Goal (LTG) According to the CDC women 70- 79 who score <10 on the 30 second sit to stand test are at an increased risk of falls. Pt to score >9 on the 30 second sit to stand test to demonstrate decreased falls risk. LTG Duration 01/25/21 Two Impairment Pt presents with signficant lower extremity weakness Longterm Goal (LTG) Pt to improve LE strength to at least 4/5 in all planes in order to enable her to get into her truck without putting increased stress on her shoulder LTG Duration 01/25/21 One Impairment Pt does not have an appropriate HEP Short Term Goal (STG) Pt to be independent and compliant with an appropriate HEP STG Duration 12/25/20 Assessment Summary Assessment pt reports her R shoulder has been slowly getting better. Her PROM is WFL without pain and her AROM did get better after manual therapy on supraspinatus tendon. However, she overall felt tired with low energy level today. Physical Therapy Plan Frequency and Duration Frequency of Treatment 2x/Week Duration of Treatment Two months Plan of Care Start Date 11/25/20 Plan of Care End Date 01/25/21 Therapeutic Interventions Therapeutic Interventions Balance Training,Gait Training ,Home Exercise Program,Manual Therapy,Patient/Caregiver Education,Self-Care/Home Management,Soft Tissue Mobilization,Therapeutic Activities,Therapeutic Exercises Modalities Cold Pack/Ice Massage,Electric Stimulation,Hot Packs, Ultrasound Next Visit Focus/Plan Next Note Type Treatment Note Next Visit Plan Strengthening, STM, pain- control modalities, gait training, increased activity tolerance
--- NOTE | 2020-12-22 14:28 | PT.OTN ---
Current Diagnoses Low back pain (12/22/20) Muscle weakness (generalized) (12/22/20) Chronic fatigue, unspecified (12/22/20) Physical Therapy Treatment Note PT-OP-A Visit Information Start: 11/25/20 14:34 Freq: Status: Active Protocol: Document 12/22/20 13:45 DCW (Rec: 12/22/20 14:28 DCW [id number]) Out-Patient Physical Therapy Visit Information Visit Information Visit Type Treatment Note Visit Start Time 13:45 Visit Stop Time 14:40 Total Visit Minutes 55 Visit Number 7 Number of FIRE TENDER Visits 0 Evaluation Information Evaluation Date 11/25/20 PT-OP-B Current Condition Start: 11/25/20 14:34 Freq: Status: Active Protocol: Document 11/25/20 11:15 DCW (Rec: 11/25/20 14:57 DCW [id number]) Current Condition History of Current Condition Onset Date One month Current Complaints Low back pain, weakness, shoulder pain, fatigue, difficulty ambulating History of Current Condition Pt is a 80 year old female very well known to this clinic presenting with multitude complaints today, mostly stemming from a decline in function following a fall on . Pt apparently was walking into her dialysis clinic, became very fatigued, sat down on the curb to recover. Pt notes she went to get up, and then next she knew the paramedics were there. Pt had apparently had a syncopal episode, fell, had numerous scrapes and bruises along her left side, and had to have her left arm wrapped up to allow the skin to heal. Pt notes that she was not allowed to use her left arm, so her right arm has been doing everything over the last month, resulting in severe right shoulder pain. 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 Prior Treatments and Tests Long history of prior physical therapy for various complaints Treatment Goals Patient/Caregiver Goals Return to being able to go for regular walks PT-OP-C Subjective Start: 11/25/20 14:34 Freq: Status: Active Protocol: Document 12/22/20 13:45 DCW (Rec: 12/22/20 14:28 DCW [id number]) OP-PT Subjective Patient Comments Patient Comments Pt reports she spent the entire day yesterday getting a cardiac workup and then going to dialysis. PT-OP-E Functional Tests Start: 11/25/20 14:34 Freq: Status: Active Protocol: Document 11/25/20 11:15 DCW (Rec: 11/25/20 14:57 DCW [id number]) Functional Tests 2 Minute Walk Test Distance 243' Comments /c cane 30 Second Sit to Stand Test Score x7 PT-OP-F Manual Assessment Start: 11/25/20 14:34 Freq: Status: Active Protocol: Document 11/25/20 11:15 DCW (Rec: 11/25/20 15:02 DCW [id number]) Manual Assessments Soft Tissue Assessment Soft Tissue Mobility Assessment Moderate-severe tinghtness with tenderness to palpation 3 /4: Wincing and withdraw along bilateral T/L paraspinals, B QL, R upper trap PT-OP-L Special Tests Start: 11/25/20 14:34 Freq: Status: Active Protocol: Document 11/25/20 11:15 DCW (Rec: 11/25/20 15:02 DCW [id number]) Special Tests Lumbar Spine Special Tests Straight Leg Raise Test Results HS tightness at 45? bilaterally Slump Test Results Negative Manual Traction Test Results Improves symptoms Compression Test Results Negative Hip Special Tests Lateral SI Compression Test Results Negative Anterior SI Sheer Test Results Negative Piriformis Test Results B tenderness at Piriformis PARAS Test Results Negative PT-OP-M Strength Start: 11/25/20 14:34 Freq: Status: Active Protocol: Document 11/25/20 11:15 DCW (Rec: 11/25/20 15:02 DCW [id number]) Hip Strength Hip Manual Muscle Testing Right Flexion (L2) 4- Good- Extension (S1) 4- Good- Abduction 3+ Fair+ Adduction 4 Good Left Flexion (L2) 3+ Fair+ Extension (S1) 3+ Fair+ Abduction 3+ Fair+ Adduction 4- Good- Knee Strength Knee Manual Muscle Testing Right Flexion (S2) 3+ Fair+ Extension (L3) 3+ Fair+ Left Flexion (S2) 4- Good- Extension (L3) 4- Good- Ankle/Foot Strength Ankle and Foot Manual Muscle Testing Right Dorsiflexion (L4) 4- Good- Plantarflexion (S1) 3+ Fair+ Left Dorsiflexion (L4) 4- Good- Plantarflexion (S1) 3+ Fair+ PT-OP-Q Treatments Start: 11/25/20 14:34 Freq: Status: Active Protocol: Document 12/22/20 13:45 DCW (Rec: 12/22/20 14:28 DCW [id number]) Cardio Equipment Recumbent Elliptical (Biodex) Duration (Minutes) 8 Resistance 4 Seat Position 8 Gym Equipment Shuttle Recovery Bilateral Heel Raises Resistance 50# Reps/Time x10 Unilateral Squats Resistance 37# Reps/Time x20 Bilateral Squats Resistance 75# Reps/Time x20 Therapeutic Exercises Supine Exercises 2 Supine Exercise Name Piriformis Side bilateral 1 Supine Exercise Name Hamstring stretch Side bilateral Manual Therapy Treatment Soft Tissue Mobilization Piriformis Body Location L Piriformis Mobilization Type Strumming,Sustained Pressure Intensity/Depth Deep Body Position Sidelying L/S and glutes Body Location L Mobilization Type Sustained Pressure,Trigger Point Release Intensity/Depth Moderate Body Position Sidelying PT-OP-R Modalities Start: 11/25/20 14:34 Freq: Status: Active Protocol: Document 12/22/20 13:45 DCW (Rec: 12/22/20 14:28 DCW [id number]) Hot Pack/Cold Pack Treatment Hot Pack Location low back, R shd Patient Position Hooklying Treatment Duration (minutes) 15 Patient Tolerance Good PT-OP-T Assessment and Plan Start: 11/25/20 14:34 Freq: Status: Active Protocol: Document 12/22/20 13:45 DCW (Rec: 12/22/20 14:28 DCW [id number]) Physical Therapy Assessment Impairments Impairments Activity Tolerance,Functional Activities,Functional Mobility ,Gait,Pain,ROM,Soft Tissue Mobility,Strength Goals Three Impairment Pt scores a 7 on the 30 sit to stand test Skilled Nursing Goal (LTG) According to the CDC women 70- 79 who score <10 on the 30 second sit to stand test are at an increased risk of falls. Pt to score >9 on the 30 second sit to stand test to demonstrate decreased falls risk. LTG Duration 01/25/21 Two Impairment Pt presents with signficant lower extremity weakness Life Claims Examiner Goal (LTG) Pt to improve LE strength to at least 4/5 in all planes in order to enable her to get into her truck without putting increased stress on her shoulder LTG Duration 01/25/21 One Impairment Pt does not have an appropriate HEP Short Term Goal (STG) Pt to be independent and compliant with an appropriate HEP STG Duration 12/25/20 Assessment Summary Assessment Focused more today on stretching and STM due to pt's severe cramping last night following her dialysis yesterday Physical Therapy Plan Frequency and Duration Frequency of Treatment 2x/Week Duration of Treatment Two months Plan of Care Start Date 11/25/20 Plan of Care End Date 01/25/21 Therapeutic Interventions Therapeutic Interventions Balance Training,Gait Training ,Home Exercise Program,Manual Therapy,Patient/Caregiver Education,Self-Care/Home Management,Soft Tissue Mobilization,Therapeutic Activities,Therapeutic Exercises Modalities Cold Pack/Ice Massage,Electric Stimulation,Hot Packs, Ultrasound Next Visit Focus/Plan Next Note Type Treatment Note Next Visit Plan Strengthening, STM, pain- control modalities, gait training, increased activity tolerance
--- NOTE | 2020-12-30 11:13 | PT.OTN ---
Current Diagnoses Low back pain (12/30/20) Muscle weakness (generalized) (12/30/20) Chronic fatigue, unspecified (12/30/20) Physical Therapy Treatment Note PT-OP-A Visit Information Start: 11/25/20 14:34 Freq: Status: Active Protocol: Document 12/30/20 10:30 DCW (Rec: 12/30/20 11:13 DCW [id number]) Out-Patient Physical Therapy Visit Information Visit Information Visit Type Treatment Note Visit Start Time 10:30 Visit Stop Time 11:25 Total Visit Minutes 55 Visit Number 8 Number of BRIDGE IRONWORKER Visits 0 Evaluation Information Evaluation Date 11/25/20 PT-OP-B Current Condition Start: 11/25/20 14:34 Freq: Status: Active Protocol: Document 11/25/20 11:15 DCW (Rec: 11/25/20 14:57 DCW [id number]) Current Condition History of Current Condition Onset Date One month Current Complaints Low back pain, weakness, shoulder pain, fatigue, difficulty ambulating History of Current Condition Pt is a 80 year old female very well known to this clinic presenting with multitude complaints today, mostly stemming from a decline in function following a fall on . Pt apparently was walking into her dialysis clinic, became very fatigued, sat down on the curb to recover. Pt notes she went to get up, and then next she knew the paramedics were there. Pt had apparently had a syncopal episode, fell, had numerous scrapes and bruises along her left side, and had to have her left arm wrapped up to allow the skin to heal. Pt notes that she was not allowed to use her left arm, so her right arm has been doing everything over the last month, resulting in severe right shoulder pain. 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 Prior Treatments and Tests Long history of prior physical therapy for various complaints Treatment Goals Patient/Caregiver Goals Return to being able to go for regular walks PT-OP-C Subjective Start: 11/25/20 14:34 Freq: Status: Active Protocol: Document 12/30/20 10:30 DCW (Rec: 12/30/20 11:13 DCW [id number]) OP-PT Subjective Patient Comments Patient Comments Pt in a good mood today, won some money at the [employer] yesterday. PT-OP-E Functional Tests Start: 11/25/20 14:34 Freq: Status: Active Protocol: Document 11/25/20 11:15 DCW (Rec: 11/25/20 14:57 DCW [id number]) Functional Tests 2 Minute Walk Test Distance 243' Comments /c cane 30 Second Sit to Stand Test Score x7 PT-OP-F Manual Assessment Start: 11/25/20 14:34 Freq: Status: Active Protocol: Document 11/25/20 11:15 DCW (Rec: 11/25/20 15:02 DCW [id number]) Manual Assessments Soft Tissue Assessment Soft Tissue Mobility Assessment Moderate-severe tinghtness with tenderness to palpation 3 /4: Wincing and withdraw along bilateral T/L paraspinals, B QL, R upper trap PT-OP-L Special Tests Start: 11/25/20 14:34 Freq: Status: Active Protocol: Document 11/25/20 11:15 DCW (Rec: 11/25/20 15:02 DCW [id number]) Special Tests Lumbar Spine Special Tests Straight Leg Raise Test Results HS tightness at 45? bilaterally Slump Test Results Negative Manual Traction Test Results Improves symptoms Compression Test Results Negative Hip Special Tests Lateral SI Compression Test Results Negative Anterior SI Sheer Test Results Negative Piriformis Test Results B tenderness at Piriformis PARAS Test Results Negative PT-OP-M Strength Start: 11/25/20 14:34 Freq: Status: Active Protocol: Document 11/25/20 11:15 DCW (Rec: 11/25/20 15:02 DCW [id number]) Hip Strength Hip Manual Muscle Testing Right Flexion (L2) 4- Good- Extension (S1) 4- Good- Abduction 3+ Fair+ Adduction 4 Good Left Flexion (L2) 3+ Fair+ Extension (S1) 3+ Fair+ Abduction 3+ Fair+ Adduction 4- Good- Knee Strength Knee Manual Muscle Testing Right Flexion (S2) 3+ Fair+ Extension (L3) 3+ Fair+ Left Flexion (S2) 4- Good- Extension (L3) 4- Good- Ankle/Foot Strength Ankle and Foot Manual Muscle Testing Right Dorsiflexion (L4) 4- Good- Plantarflexion (S1) 3+ Fair+ Left Dorsiflexion (L4) 4- Good- Plantarflexion (S1) 3+ Fair+ PT-OP-Q Treatments Start: 11/25/20 14:34 Freq: Status: Active Protocol: Document 12/30/20 10:30 DCW (Rec: 12/30/20 11:13 DCW [id number]) Cardio Equipment Recumbent Elliptical (Biodex) Duration (Minutes) 8 Resistance 4 Seat Position 8 Therapeutic Exercises Supine Exercises 2 Supine Exercise Name Piriformis Side bilateral 1 Supine Exercise Name Hamstring stretch Side bilateral Manual Therapy Treatment Soft Tissue Mobilization Rotator Cuff Body Location supraspinatus Mobilization Type Sustained Pressure,Trigger Point Release Intensity/Depth Moderate Body Position Hooklying trapezius Mobilization Type Sustained Pressure,Trigger Point Release Intensity/Depth Moderate Body Position Supine Comments TTP at L muscle belly. PT-OP-R Modalities Start: 11/25/20 14:34 Freq: Status: Active Protocol: Document 12/30/20 10:30 DCW (Rec: 12/30/20 11:13 DCW [id number]) Hot Pack/Cold Pack Treatment Hot Pack Location low back, R shd Patient Position Hooklying Treatment Duration (minutes) 15 Patient Tolerance Good PT-OP-T Assessment and Plan Start: 11/25/20 14:34 Freq: Status: Active Protocol: Document 12/30/20 10:30 DCW (Rec: 12/30/20 11:13 DCW [id number]) Physical Therapy Assessment Impairments Impairments Activity Tolerance,Functional Activities,Functional Mobility ,Gait,Pain,ROM,Soft Tissue Mobility,Strength Goals Three Impairment Pt scores a 7 on the 30 sit to stand test Barrel Builder Goal (LTG) According to the CDC women 70- 79 who score <10 on the 30 second sit to stand test are at an increased risk of falls. Pt to score >9 on the 30 second sit to stand test to demonstrate decreased falls risk. LTG Duration 01/25/21 Two Impairment Pt presents with signficant lower extremity weakness Barrel Builder Goal (LTG) Pt to improve LE strength to at least 4/5 in all planes in order to enable her to get into her truck without putting increased stress on her shoulder LTG Duration 01/25/21 One Impairment Pt does not have an appropriate HEP Short Term Goal (STG) Pt to be independent and compliant with an appropriate HEP STG Duration 12/25/20 Assessment Summary Assessment Pt feeling better overall, is having dialysis later, she is hopeful she will not have as much cramping. Physical Therapy Plan Frequency and Duration Frequency of Treatment 2x/Week Duration of Treatment Two months Plan of Care Start Date 11/25/20 Plan of Care End Date 01/25/21 Therapeutic Interventions Therapeutic Interventions Balance Training,Gait Training ,Home Exercise Program,Manual Therapy,Patient/Caregiver Education,Self-Care/Home Management,Soft Tissue Mobilization,Therapeutic Activities,Therapeutic Exercises Modalities Cold Pack/Ice Massage,Electric Stimulation,Hot Packs, Ultrasound Next Visit Focus/Plan Next Note Type Treatment Note Next Visit Plan Strengthening, STM, pain- control modalities, gait training, increased activity tolerance
--- NOTE | 2021-01-05 11:58 | PT.OTN ---
Current Diagnoses Low back pain (01/05/21) Muscle weakness (generalized) (01/05/21) Chronic fatigue, unspecified (01/05/21) Physical Therapy Treatment Note PT-OP-A Visit Information Start: 11/25/20 14:34 Freq: Status: Active Protocol: Document 01/05/21 11:19 (Rec: 01/05/21 11:58 [id number]) Out-Patient Physical Therapy Visit Information Visit Information Visit Type Treatment Note Visit Start Time 11:18 Visit Stop Time 12:00 Total Visit Minutes 42 Visit Number 9 Number of FRAME WELDER [employer] TRAILERS Visits 0 PT-OP-B Current Condition Start: 11/25/20 14:34 Freq: Status: Active Protocol: Document 11/25/20 11:15 DCW (Rec: 11/25/20 14:57 DCW [id number]) Current Condition History of Current Condition Onset Date One month Current Complaints Low back pain, weakness, shoulder pain, fatigue, difficulty ambulating History of Current Condition Pt is a 80 year old female very well known to this clinic presenting with multitude complaints today, mostly stemming from a decline in function following a fall on . Pt apparently was walking into her dialysis clinic, became very fatigued, sat down on the curb to recover. Pt notes she went to get up, and then next she knew the paramedics were there. Pt had apparently had a syncopal episode, fell, had numerous scrapes and bruises along her left side, and had to have her left arm wrapped up to allow the skin to heal. Pt notes that she was not allowed to use her left arm, so her right arm has been doing everything over the last month, resulting in severe right shoulder pain. 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 Prior Treatments and Tests Long history of prior physical therapy for various complaints Treatment Goals Patient/Caregiver Goals Return to being able to go for regular walks PT-OP-C Subjective Start: 11/25/20 14:34 Freq: Status: Active Protocol: Document 01/05/21 11:19 (Rec: 01/05/21 11:58 [id number]) OP-PT Subjective Patient Comments Patient Comments Im pretty alright and im determined to get better. Im going to have CT scan for my abdominal area today at 12. My shoulder is much better. PT-OP-E Functional Tests Start: 11/25/20 14:34 Freq: Status: Active Protocol: Document 11/25/20 11:15 DCW (Rec: 11/25/20 14:57 DCW [id number]) Functional Tests 2 Minute Walk Test Distance 243' Comments /c cane 30 Second Sit to Stand Test Score x7 PT-OP-F Manual Assessment Start: 11/25/20 14:34 Freq: Status: Active Protocol: Document 11/25/20 11:15 DCW (Rec: 11/25/20 15:02 DCW [id number]) Manual Assessments Soft Tissue Assessment Soft Tissue Mobility Assessment Moderate-severe tinghtness with tenderness to palpation 3 /4: Wincing and withdraw along bilateral T/L paraspinals, B QL, R upper trap PT-OP-L Special Tests Start: 11/25/20 14:34 Freq: Status: Active Protocol: Document 11/25/20 11:15 DCW (Rec: 11/25/20 15:02 DCW [id number]) Special Tests Lumbar Spine Special Tests Straight Leg Raise Test Results HS tightness at 45? bilaterally Slump Test Results Negative Manual Traction Test Results Improves symptoms Compression Test Results Negative Hip Special Tests Lateral SI Compression Test Results Negative Anterior SI Sheer Test Results Negative Piriformis Test Results B tenderness at Piriformis PARAS Test Results Negative PT-OP-M Strength Start: 11/25/20 14:34 Freq: Status: Active Protocol: Document 11/25/20 11:15 DCW (Rec: 11/25/20 15:02 DCW [id number]) Hip Strength Hip Manual Muscle Testing Right Flexion (L2) 4- Good- Extension (S1) 4- Good- Abduction 3+ Fair+ Adduction 4 Good Left Flexion (L2) 3+ Fair+ Extension (S1) 3+ Fair+ Abduction 3+ Fair+ Adduction 4- Good- Knee Strength Knee Manual Muscle Testing Right Flexion (S2) 3+ Fair+ Extension (L3) 3+ Fair+ Left Flexion (S2) 4- Good- Extension (L3) 4- Good- Ankle/Foot Strength Ankle and Foot Manual Muscle Testing Right Dorsiflexion (L4) 4- Good- Plantarflexion (S1) 3+ Fair+ Left Dorsiflexion (L4) 4- Good- Plantarflexion (S1) 3+ Fair+ PT-OP-Q Treatments Start: 11/25/20 14:34 Freq: Status: Active Protocol: Document 01/05/21 11:19 HH (Rec: 01/05/21 11:58 [id number]) Cardio Equipment Recumbent Stepper (Sci-Fit) Duration (Minutes) 8 Resistance 2.5 Seat Position 10 Other 1.00 mile Gym Equipment Shuttle Recovery Bilateral Squats Resistance 75#, 87# Reps/Time x20x2 Therapeutic Exercises Supine Exercises 2 Supine Exercise Name Piriformis Side bilateral 1 Supine Exercise Name Hamstring stretch Side bilateral Sitting Exercises posterior capsule stretch Sitting Exercise Name arm cross shoulder Side right Reps/Minutes 20 s hold x5 Comments for HEP Manual Therapy Treatment Soft Tissue Mobilization Rotator Cuff Body Location supraspinatus Mobilization Type Sustained Pressure,Trigger Point Release Intensity/Depth Moderate Body Position Hooklying Joint Mobilizations R GHJ Joint posterior Body Position Supine Reps/Duration 15 mins Comments 1. arm abducted 60 degrees and PA glide 2. arm then adducted and abduct 90 degrees, PA glide through elbow. PT-OP-R Modalities Start: 11/25/20 14:34 Freq: Status: Active Protocol: Document 12/30/20 10:30 DCW (Rec: 12/30/20 11:13 DCW [id number]) Hot Pack/Cold Pack Treatment Hot Pack Location low back, R shd Patient Position Hooklying Treatment Duration (minutes) 15 Patient Tolerance Good PT-OP-T Assessment and Plan Start: 11/25/20 14:34 Freq: Status: Active Protocol: Document 01/05/21 11:19 (Rec: 01/05/21 11:58 [id number]) Physical Therapy Assessment Goals Three Impairment Pt scores a 7 on the 30 sit to stand test Senior Care Goal (LTG) According to the CDC women 70- 79 who score <10 on the 30 second sit to stand test are at an increased risk of falls. Pt to score >9 on the 30 second sit to stand test to demonstrate decreased falls risk. LTG Duration 01/25/21 Two Impairment Pt presents with signficant lower extremity weakness Senior Care Goal (LTG) Pt to improve LE strength to at least 4/5 in all planes in order to enable her to get into her truck without putting increased stress on her shoulder LTG Duration 01/25/21 One Impairment Pt does not have an appropriate HEP Short Term Goal (STG) Pt to be independent and compliant with an appropriate HEP STG Duration 12/25/20 Assessment Summary Assessment Pt's R shoulder has been improving but still has subacromial pain while abduction and flexion. Did posterior glide for R GHJ and posterior capsule stretch. She was able to reach close to full ROM. Physical Therapy Plan Frequency and Duration Frequency of Treatment 2x/Week Duration of Treatment Two months Plan of Care Start Date 11/25/20 Plan of Care End Date 01/25/21 Therapeutic Interventions Therapeutic Interventions Balance Training,Gait Training ,Home Exercise Program,Manual Therapy,Patient/Caregiver Education,Self-Care/Home Management,Soft Tissue Mobilization,Therapeutic Activities,Therapeutic Exercises Modalities Cold Pack/Ice Massage,Electric Stimulation,Hot Packs, Ultrasound Next Visit Focus/Plan Next Note Type Treatment Note Next Visit Plan Strengthening, STM, pain- control modalities, gait training, increased activity tolerance
--- NOTE | 2021-01-07 15:41 | PT.OTN ---
Current Diagnoses Low back pain (01/07/21) Muscle weakness (generalized) (01/07/21) Chronic fatigue, unspecified (01/07/21) Physical Therapy Treatment Note PT-OP-A Visit Information Start: 11/25/20 14:34 Freq: Status: Active Protocol: Document 01/07/21 13:56 HH (Rec: 01/07/21 15:41 [id number]) Out-Patient Physical Therapy Visit Information Visit Information Visit Type Progress Note Visit Start Time 13:48 Visit Stop Time 14:41 Total Visit Minutes 53 Visit Number 10 Number of ANTHROPOMETRIST Visits 0 PT-OP-B Current Condition Start: 11/25/20 14:34 Freq: Status: Active Protocol: Document 11/25/20 11:15 DCW (Rec: 11/25/20 14:57 DCW [id number]) Current Condition History of Current Condition Onset Date One month Current Complaints Low back pain, weakness, shoulder pain, fatigue, difficulty ambulating History of Current Condition Pt is a 80 year old female very well known to this clinic presenting with multitude complaints today, mostly stemming from a decline in function following a fall on . Pt apparently was walking into her dialysis clinic, became very fatigued, sat down on the curb to recover. Pt notes she went to get up, and then next she knew the paramedics were there. Pt had apparently had a syncopal episode, fell, had numerous scrapes and bruises along her left side, and had to have her left arm wrapped up to allow the skin to heal. Pt notes that she was not allowed to use her left arm, so her right arm has been doing everything over the last month, resulting in severe right shoulder pain. 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 Prior Treatments and Tests Long history of prior physical therapy for various complaints Treatment Goals Patient/Caregiver Goals Return to being able to go for regular walks PT-OP-C Subjective Start: 11/25/20 14:34 Freq: Status: Active Protocol: Document 01/07/21 13:56 HH (Rec: 01/07/21 15:41 [id number]) OP-PT Subjective Patient Comments Patient Comments My shoulder feels really good now and i can barely feel the pain. So im happy. Patient Reported Progress Improving PT-OP-E Functional Tests Start: 11/25/20 14:34 Freq: Status: Active Protocol: Document 11/25/20 11:15 DCW (Rec: 11/25/20 14:57 DCW [id number]) Functional Tests 2 Minute Walk Test Distance 243' Comments /c cane 30 Second Sit to Stand Test Score x7 PT-OP-F Manual Assessment Start: 11/25/20 14:34 Freq: Status: Active Protocol: Document 11/25/20 11:15 DCW (Rec: 11/25/20 15:02 DCW [id number]) Manual Assessments Soft Tissue Assessment Soft Tissue Mobility Assessment Moderate-severe tinghtness with tenderness to palpation 3 /4: Wincing and withdraw along bilateral T/L paraspinals, B QL, R upper trap PT-OP-L Special Tests Start: 11/25/20 14:34 Freq: Status: Active Protocol: Document 11/25/20 11:15 DCW (Rec: 11/25/20 15:02 DCW [id number]) Special Tests Lumbar Spine Special Tests Straight Leg Raise Test Results HS tightness at 45? bilaterally Slump Test Results Negative Manual Traction Test Results Improves symptoms Compression Test Results Negative Hip Special Tests Lateral SI Compression Test Results Negative Anterior SI Sheer Test Results Negative Piriformis Test Results B tenderness at Piriformis PARAS Test Results Negative PT-OP-M Strength Start: 11/25/20 14:34 Freq: Status: Active Protocol: Document 11/25/20 11:15 DCW (Rec: 11/25/20 15:02 DCW [id number]) Hip Strength Hip Manual Muscle Testing Right Flexion (L2) 4- Good- Extension (S1) 4- Good- Abduction 3+ Fair+ Adduction 4 Good Left Flexion (L2) 3+ Fair+ Extension (S1) 3+ Fair+ Abduction 3+ Fair+ Adduction 4- Good- Knee Strength Knee Manual Muscle Testing Right Flexion (S2) 3+ Fair+ Extension (L3) 3+ Fair+ Left Flexion (S2) 4- Good- Extension (L3) 4- Good- Ankle/Foot Strength Ankle and Foot Manual Muscle Testing Right Dorsiflexion (L4) 4- Good- Plantarflexion (S1) 3+ Fair+ Left Dorsiflexion (L4) 4- Good- Plantarflexion (S1) 3+ Fair+ PT-OP-Q Treatments Start: 11/25/20 14:34 Freq: Status: Active Protocol: Document 01/07/21 13:56 HH (Rec: 01/07/21 15:41 [id number]) Cardio Equipment Recumbent Stepper (Sci-Fit) Duration (Minutes) 8 Resistance 2.5 Seat Position 10 Other 1.00 mile Manual Therapy Treatment Soft Tissue Mobilization L/S and glutes Body Location paraspinals Mobilization Type Sustained Pressure,Trigger Point Release Intensity/Depth Moderate Body Position Sidelying Joint Mobilizations R GHJ Joint posterior Body Position Supine Reps/Duration 15 mins Comments 1. arm abducted 60 degrees and PA glide 2. arm then adducted and abduct 90 degrees, PA glide through elbow. PT-OP-R Modalities Start: 11/25/20 14:34 Freq: Status: Active Protocol: Document 01/07/21 13:56 HH (Rec: 01/07/21 15:41 [id number]) Hot Pack/Cold Pack Treatment Hot Pack Location low back, R shd Patient Position Hooklying Treatment Duration (minutes) 15 Patient Tolerance Good PT-OP-T Assessment and Plan Start: 11/25/20 14:34 Freq: Status: Active Protocol: Document 01/07/21 13:56 (Rec: 01/07/21 15:41 [id number]) Physical Therapy Assessment Goals Three Impairment Pt scores a 7 on the 30 sit to stand test Short Term Goal (STG) 01/07 goal met pt completed 11times STS from a 20 inches chair without pushing off with UEs. Power Tool Repair Technician Goal (LTG) According to the CDC women 70- 79 who score <10 on the 30 second sit to stand test are at an increased risk of falls. Pt to score >9 on the 30 second sit to stand test to demonstrate decreased falls risk. LTG Duration 01/25/21 Two Impairment Pt presents with signficant lower extremity weakness Short Term Goal (STG) 01/07 partially met R LE = 4/5 L LE = 3+/5 Power Tool Repair Technician Goal (LTG) Pt to improve LE strength to at least 4/5 in all planes in order to enable her to get into her truck without putting increased stress on her shoulder LTG Duration 01/25/21 One Impairment Pt does not have an appropriate HEP Impairment 01/07 goal met pt has been doing HEP for her shoulder and back. Short Term Goal (STG) Pt to be independent and compliant with an appropriate HEP STG Duration 12/25/20 Assessment Summary Assessment MS today. Pt came in today and stated significant improvements on R shoulder with 1-2/10 pain now. She also said her low back has been doing well but there's noticeable difference in strength between R and L. Will focus on increasing her lumbar flexion mobility and BLE strength. Physical Therapy Plan Frequency and Duration Frequency of Treatment 2x/Week Duration of Treatment Two months Plan of Care Start Date 11/25/20 Plan of Care End Date 01/25/21 Therapeutic Interventions Therapeutic Interventions Balance Training,Gait Training ,Home Exercise Program,Manual Therapy,Patient/Caregiver Education,Self-Care/Home Management,Soft Tissue Mobilization,Therapeutic Activities,Therapeutic Exercises Modalities Cold Pack/Ice Massage,Electric Stimulation,Hot Packs, Ultrasound Next Visit Focus/Plan Next Note Type Treatment Note Next Visit Plan Strengthening, STM, pain- control modalities, gait training, increased activity tolerance
--- NOTE | 2021-01-12 12:16 | PT.OTN ---
Current Diagnoses Low back pain (01/12/21) Muscle weakness (generalized) (01/12/21) Chronic fatigue, unspecified (01/12/21) Physical Therapy Treatment Note PT-OP-A Visit Information Start: 11/25/20 14:34 Freq: Status: Active Protocol: Document 01/12/21 11:17 HH (Rec: 01/12/21 12:15 [id number]) Out-Patient Physical Therapy Visit Information Visit Information Visit Type Treatment Note Visit Start Time 11:16 Visit Stop Time 12:00 Total Visit Minutes 44 Visit Number 11 Number of MAINTENANCE MECHANIC 2ND SHIFT Visits 0 PT-OP-B Current Condition Start: 11/25/20 14:34 Freq: Status: Active Protocol: Document 11/25/20 11:15 DCW (Rec: 11/25/20 14:57 DCW [id number]) Current Condition History of Current Condition Onset Date One month Current Complaints Low back pain, weakness, shoulder pain, fatigue, difficulty ambulating History of Current Condition Pt is a 80 year old female very well known to this clinic presenting with multitude complaints today, mostly stemming from a decline in function following a fall on . Pt apparently was walking into her dialysis clinic, became very fatigued, sat down on the curb to recover. Pt notes she went to get up, and then next she knew the paramedics were there. Pt had apparently had a syncopal episode, fell, had numerous scrapes and bruises along her left side, and had to have her left arm wrapped up to allow the skin to heal. Pt notes that she was not allowed to use her left arm, so her right arm has been doing everything over the last month, resulting in severe right shoulder pain. 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 Prior Treatments and Tests Long history of prior physical therapy for various complaints Treatment Goals Patient/Caregiver Goals Return to being able to go for regular walks PT-OP-C Subjective Start: 11/25/20 14:34 Freq: Status: Active Protocol: Document 01/12/21 11:17 HH (Rec: 01/12/21 12:15 [id number]) OP-PT Subjective Patient Comments Patient Comments My shoulder is doing very good. However, my L hip is getting painful since a few days and i Patient Reported Progress Improving PT-OP-E Functional Tests Start: 11/25/20 14:34 Freq: Status: Active Protocol: Document 11/25/20 11:15 DCW (Rec: 11/25/20 14:57 DCW [id number]) Functional Tests 2 Minute Walk Test Distance 243' Comments /c cane 30 Second Sit to Stand Test Score x7 PT-OP-F Manual Assessment Start: 11/25/20 14:34 Freq: Status: Active Protocol: Document 11/25/20 11:15 DCW (Rec: 11/25/20 15:02 DCW [id number]) Manual Assessments Soft Tissue Assessment Soft Tissue Mobility Assessment Moderate-severe tinghtness with tenderness to palpation 3 /4: Wincing and withdraw along bilateral T/L paraspinals, B QL, R upper trap PT-OP-L Special Tests Start: 11/25/20 14:34 Freq: Status: Active Protocol: Document 11/25/20 11:15 DCW (Rec: 11/25/20 15:02 DCW [id number]) Special Tests Lumbar Spine Special Tests Straight Leg Raise Test Results HS tightness at 45? bilaterally Slump Test Results Negative Manual Traction Test Results Improves symptoms Compression Test Results Negative Hip Special Tests Lateral SI Compression Test Results Negative Anterior SI Sheer Test Results Negative Piriformis Test Results B tenderness at Piriformis PARAS Test Results Negative PT-OP-M Strength Start: 11/25/20 14:34 Freq: Status: Active Protocol: Document 11/25/20 11:15 DCW (Rec: 11/25/20 15:02 DCW [id number]) Hip Strength Hip Manual Muscle Testing Right Flexion (L2) 4- Good- Extension (S1) 4- Good- Abduction 3+ Fair+ Adduction 4 Good Left Flexion (L2) 3+ Fair+ Extension (S1) 3+ Fair+ Abduction 3+ Fair+ Adduction 4- Good- Knee Strength Knee Manual Muscle Testing Right Flexion (S2) 3+ Fair+ Extension (L3) 3+ Fair+ Left Flexion (S2) 4- Good- Extension (L3) 4- Good- Ankle/Foot Strength Ankle and Foot Manual Muscle Testing Right Dorsiflexion (L4) 4- Good- Plantarflexion (S1) 3+ Fair+ Left Dorsiflexion (L4) 4- Good- Plantarflexion (S1) 3+ Fair+ PT-OP-Q Treatments Start: 11/25/20 14:34 Freq: Status: Active Protocol: Document 01/12/21 11:17 HH (Rec: 01/12/21 12:15 [id number]) Cardio Equipment Recumbent Stepper (Sci-Fit) Duration (Minutes) 5 Resistance 2 Seat Position 8 Gym Equipment Shuttle Recovery Bilateral Squats Resistance 75#, 87# Reps/Time x20x2 Therapeutic Exercises Supine Exercises figure 4 Side left Reps/Minutes 30s x5 Comments for HEP 2 Supine Exercise Name Piriformis Side bilateral Reps/Minutes 30s x 5 Manual Therapy Treatment Joint Mobilizations B hip distraction Joint L Direction inferior Grade II Body Position Supine Reps/Duration 8 sec x 4 PT-OP-R Modalities Start: 11/25/20 14:34 Freq: Status: Active Protocol: Document 01/07/21 13:56 HH (Rec: 01/07/21 15:41 [id number]) Hot Pack/Cold Pack Treatment Hot Pack Location low back, R shd Patient Position Hooklying Treatment Duration (minutes) 15 Patient Tolerance Good PT-OP-T Assessment and Plan Start: 11/25/20 14:34 Freq: Status: Active Protocol: Document 01/12/21 11:17 (Rec: 01/12/21 12:15 [id number]) Physical Therapy Assessment Goals Three Impairment Pt scores a 7 on the 30 sit to stand test Short Term Goal (STG) 01/07 goal met pt completed 11times STS from a 20 inches chair without pushing off with UEs. Gas Engineer Goal (LTG) According to the CDC women 70- 79 who score <10 on the 30 second sit to stand test are at an increased risk of falls. Pt to score >9 on the 30 second sit to stand test to demonstrate decreased falls risk. LTG Duration 01/25/21 Two Impairment Pt presents with signficant lower extremity weakness Short Term Goal (STG) 01/07 partially met R LE = 4/5 L LE = 3+/5 Gas Engineer Goal (LTG) Pt to improve LE strength to at least 4/5 in all planes in order to enable her to get into her truck without putting increased stress on her shoulder LTG Duration 01/25/21 One Impairment Pt does not have an appropriate HEP Impairment 01/07 goal met pt has been doing HEP for her shoulder and back. Short Term Goal (STG) Pt to be independent and compliant with an appropriate HEP STG Duration 12/25/20 Assessment Summary Assessment pt reports of fatigue today. Did state her shoulder is doing well but L hip is getting worse. 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 Added figure 4 and piriformis stretch. Will add jamarcus stretch and hip flexion AROM next visit. Physical Therapy Plan Frequency and Duration Frequency of Treatment 2x/Week Duration of Treatment Two months Plan of Care Start Date 11/25/20 Plan of Care End Date 01/25/21 Therapeutic Interventions Therapeutic Interventions Balance Training,Gait Training ,Home Exercise Program,Manual Therapy,Patient/Caregiver Education,Self-Care/Home Management,Soft Tissue Mobilization,Therapeutic Activities,Therapeutic Exercises Modalities Cold Pack/Ice Massage,Electric Stimulation,Hot Packs, Ultrasound Next Visit Focus/Plan Next Note Type Treatment Note Next Visit Plan Strengthening, STM, pain- control modalities, gait training, increased activity tolerance
--- NOTE | 2021-01-19 15:15 | PT.OTN ---
Current Diagnoses Low back pain (01/19/21) Muscle weakness (generalized) (01/19/21) Chronic fatigue, unspecified (01/19/21) Physical Therapy Treatment Note PT-OP-A Visit Information Start: 11/25/20 14:34 Freq: Status: Active Protocol: Document 01/19/21 14:42 DCW (Rec: 01/19/21 15:14 DCW [id number]) Out-Patient Physical Therapy Visit Information Visit Information Visit Type Treatment Note Visit Note 12 min late Visit Start Time 14:42 Visit Stop Time 15:20 Total Visit Minutes 38 Visit Number 12 Number of COTTRELL OPERATOR Visits 0 PT-OP-B Current Condition Start: 11/25/20 14:34 Freq: Status: Active Protocol: Document 11/25/20 11:15 DCW (Rec: 11/25/20 14:57 DCW [id number]) Current Condition History of Current Condition Onset Date One month Current Complaints Low back pain, weakness, shoulder pain, fatigue, difficulty ambulating History of Current Condition Pt is a 80 year old female very well known to this clinic presenting with multitude complaints today, mostly stemming from a decline in function following a fall on . Pt apparently was walking into her dialysis clinic, became very fatigued, sat down on the curb to recover. Pt notes she went to get up, and then next she knew the paramedics were there. Pt had apparently had a syncopal episode, fell, had numerous scrapes and bruises along her left side, and had to have her left arm wrapped up to allow the skin to heal. Pt notes that she was not allowed to use her left arm, so her right arm has been doing everything over the last month, resulting in severe right shoulder pain. 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 Prior Treatments and Tests Long history of prior physical therapy for various complaints Treatment Goals Patient/Caregiver Goals Return to being able to go for regular walks PT-OP-C Subjective Start: 11/25/20 14:34 Freq: Status: Active Protocol: Document 01/19/21 14:42 DCW (Rec: 01/19/21 15:14 DCW [id number]) OP-PT Subjective Patient Comments Patient Comments It's been real bad the past few days. Reports her PCP put her back on Prednisone on Monday, which she is not too happy about. PT-OP-E Functional Tests Start: 11/25/20 14:34 Freq: Status: Active Protocol: Document 11/25/20 11:15 DCW (Rec: 11/25/20 14:57 DCW [id number]) Functional Tests 2 Minute Walk Test Distance 243' Comments /c cane 30 Second Sit to Stand Test Score x7 PT-OP-F Manual Assessment Start: 11/25/20 14:34 Freq: Status: Active Protocol: Document 11/25/20 11:15 DCW (Rec: 11/25/20 15:02 DCW [id number]) Manual Assessments Soft Tissue Assessment Soft Tissue Mobility Assessment Moderate-severe tinghtness with tenderness to palpation 3 /4: Wincing and withdraw along bilateral T/L paraspinals, B QL, R upper trap PT-OP-L Special Tests Start: 11/25/20 14:34 Freq: Status: Active Protocol: Document 11/25/20 11:15 DCW (Rec: 11/25/20 15:02 DCW [id number]) Special Tests Lumbar Spine Special Tests Straight Leg Raise Test Results HS tightness at 45? bilaterally Slump Test Results Negative Manual Traction Test Results Improves symptoms Compression Test Results Negative Hip Special Tests Lateral SI Compression Test Results Negative Anterior SI Sheer Test Results Negative Piriformis Test Results B tenderness at Piriformis PARAS Test Results Negative PT-OP-M Strength Start: 11/25/20 14:34 Freq: Status: Active Protocol: Document 11/25/20 11:15 DCW (Rec: 11/25/20 15:02 DCW [id number]) Hip Strength Hip Manual Muscle Testing Right Flexion (L2) 4- Good- Extension (S1) 4- Good- Abduction 3+ Fair+ Adduction 4 Good Left Flexion (L2) 3+ Fair+ Extension (S1) 3+ Fair+ Abduction 3+ Fair+ Adduction 4- Good- Knee Strength Knee Manual Muscle Testing Right Flexion (S2) 3+ Fair+ Extension (L3) 3+ Fair+ Left Flexion (S2) 4- Good- Extension (L3) 4- Good- Ankle/Foot Strength Ankle and Foot Manual Muscle Testing Right Dorsiflexion (L4) 4- Good- Plantarflexion (S1) 3+ Fair+ Left Dorsiflexion (L4) 4- Good- Plantarflexion (S1) 3+ Fair+ PT-OP-Q Treatments Start: 11/25/20 14:34 Freq: Status: Active Protocol: Document 01/19/21 14:42 DCW (Rec: 01/19/21 15:14 DCW [id number]) Cardio Equipment Recumbent Elliptical (Biodex) Duration (Minutes) 5 Resistance 4 Seat Position 8 Gym Equipment Shuttle Recovery Unilateral Squats Resistance 37# Reps/Time x20 Bilateral Squats Resistance 75# Reps/Time x20x2 Manual Therapy Treatment Soft Tissue Mobilization L/S and glutes Body Location paraspinals Mobilization Type Sustained Pressure,Trigger Point Release Intensity/Depth Moderate Body Position Sidelying Joint Mobilizations B hip distraction Joint Bilateral Direction inferior Grade II Body Position Supine Reps/Duration 8 sec x 4 PT-OP-R Modalities Start: 11/25/20 14:34 Freq: Status: Active Protocol: Document 01/07/21 13:56 HH (Rec: 01/07/21 15:41 HH [id number]) Hot Pack/Cold Pack Treatment Hot Pack Location low back, R shd Patient Position Hooklying Treatment Duration (minutes) 15 Patient Tolerance Good PT-OP-T Assessment and Plan Start: 11/25/20 14:34 Freq: Status: Active Protocol: Document 01/19/21 14:42 DCW (Rec: 01/19/21 15:14 DCW [id number]) Physical Therapy Assessment Goals Three Impairment Pt scores a 7 on the 30 sit to stand test Short Term Goal (STG) 01/07 goal met pt completed 11times STS from a 20 inches chair without pushing off with UEs. Business Database Analyst Goal (LTG) According to the CDC women 70- 79 who score <10 on the 30 second sit to stand test are at an increased risk of falls. Pt to score >9 on the 30 second sit to stand test to demonstrate decreased falls risk. LTG Duration 01/25/21 Two Impairment Pt presents with signficant lower extremity weakness Short Term Goal (STG) 01/07 partially met R LE = 4/5 L LE = 3+/5 Residential Goal (LTG) Pt to improve LE strength to at least 4/5 in all planes in order to enable her to get into her truck without putting increased stress on her shoulder LTG Duration 01/25/21 One Impairment Pt does not have an appropriate HEP Impairment 01/07 goal met pt has been doing HEP for her shoulder and back. Short Term Goal (STG) Pt to be independent and compliant with an appropriate HEP STG Duration 12/25/20 Assessment Summary Assessment Pt notes she continues to feel good in her shoulder, noted improved R hip pain with LE traction Physical Therapy Plan Frequency and Duration Frequency of Treatment 2x/Week Duration of Treatment Two months Plan of Care Start Date 11/25/20 Plan of Care End Date 01/25/21 Therapeutic Interventions Therapeutic Interventions Balance Training,Gait Training ,Home Exercise Program,Manual Therapy,Patient/Caregiver Education,Self-Care/Home Management,Soft Tissue Mobilization,Therapeutic Activities,Therapeutic Exercises Modalities Cold Pack/Ice Massage,Electric Stimulation,Hot Packs, Ultrasound Next Visit Focus/Plan Next Note Type Progress Note Next Visit Plan Strengthening, STM, pain- control modalities, gait training, increased activity tolerance
--- NOTE | 2021-01-21 16:00 | PT.OPPOC ---
Physical, Occupational & Speech Therapy At [facility] Current Diagnoses Low back pain (01/26/21) Muscle weakness (generalized) (01/26/21) Chronic fatigue, unspecified (01/26/21) Visit Care Team Role Provider Type Jorge L Dietz MD Attending Provider Physician Family Provider Primary Care Provider Referring Provider Specialty: [facility] Practice Address: [address] [place] [address], [facility] [place], [facility] Email: [email or web address] Plan Of Care PT-OP-T Assessment and Plan Start: 11/25/20 14:34 Freq: Status: Active Protocol: Document 01/21/21 13:45 DCW (Rec: 01/21/21 14:29 DCW [id number]) Physical Therapy Assessment Impairments Impairments Activity Tolerance,Functional Activities,Functional Mobility ,Gait,Pain,ROM,Soft Tissue Mobility,Strength Goals Three Impairment Pt scores a 7 on the 30 sit to stand test Short Term Goal (STG) 01/07 goal met pt completed 11times STS from a 20 inches chair without pushing off with UEs. Skilled Nursing Goal (LTG) According to the CDC women 70- 79 who score <10 on the 30 second sit to stand test are at an increased risk of falls. Pt to score >9 on the 30 second sit to stand test to demonstrate decreased falls risk. LTG Duration Met Two Impairment Pt presents with signficant lower extremity weakness Skilled Nursing Goal (LTG) Pt to improve LE strength to at least 4/5 in all planes in order to enable her to get into her truck without putting increased stress on her shoulder LTG Duration 02/24/21 - 4-/5 left hip flexion One Impairment Pt does not have an appropriate HEP Impairment 01/07 goal met pt has been doing HEP for her shoulder and back. Short Term Goal (STG) Pt to be independent and compliant with an appropriate HEP STG Duration Met Assessment Summary Assessment Pt making great progress, may be at least partially due to recent course of predisone. Should continue to benefit some from continued strengthening and tone management. May be approaching plateau in progress, may be looking at discharge following completion of next scheduled visits. Physical Therapy Plan Frequency and Duration Frequency of Treatment 2x/Week Duration of Treatment 5 weeks Plan of Care Start Date 01/21/21 Plan of Care End Date 02/26/21 Therapeutic Interventions Therapeutic Interventions Balance Training,Gait Training ,Home Exercise Program,Manual Therapy,Patient/Caregiver Education,Self-Care/Home Management,Soft Tissue Mobilization,Therapeutic Activities,Therapeutic Exercises Modalities Cold Pack/Ice Massage,Electric Stimulation,Hot Packs, Ultrasound Next Visit Focus/Plan Next Note Type Treatment Note Next Visit Plan Strengthening, STM, pain- control modalities, gait training, increased activity tolerance Plan of Care Dates Plan of Care Start Date 01/21/21 Plan of Care End Date 02/26/21 Electronically Signed by: Geremias Adam, PT 01/26/21 0521 Please Sign and Return: I have reviewed this Plan of Care and certify that the skilled therapy services above are required to meet the patient?s needs. Physician Signature Date Printed Name and Credentials Clinical Instructor Signature Printed Name and Credentials
--- NOTE | 2021-01-21 16:00 | PT.OTN ---
Current Diagnoses Low back pain (01/26/21) Muscle weakness (generalized) (01/26/21) Chronic fatigue, unspecified (01/26/21) Physical Therapy Treatment Note PT-OP-A Visit Information Start: 11/25/20 14:34 Freq: Status: Active Protocol: Document 01/21/21 13:45 DCW (Rec: 01/21/21 14:29 DCW [id number]) Out-Patient Physical Therapy Visit Information Visit Information Visit Type Progress Note Visit Start Time 13:45 Visit Stop Time 14:35 Total Visit Minutes 50 Visit Number 13 Number of CLINICAL STATISTICS MANAGER Visits 0 Evaluation Information Evaluation Date 11/25/20 PT-OP-B Current Condition Start: 11/25/20 14:34 Freq: Status: Active Protocol: Document 11/25/20 11:15 DCW (Rec: 11/25/20 14:57 DCW [id number]) Current Condition History of Current Condition Onset Date One month Current Complaints Low back pain, weakness, shoulder pain, fatigue, difficulty ambulating History of Current Condition Pt is a 80 year old female very well known to this clinic presenting with multitude complaints today, mostly stemming from a decline in function following a fall on . Pt apparently was walking into her dialysis clinic, became very fatigued, sat down on the curb to recover. Pt notes she went to get up, and then next she knew the paramedics were there. Pt had apparently had a syncopal episode, fell, had numerous scrapes and bruises along her left side, and had to have her left arm wrapped up to allow the skin to heal. Pt notes that she was not allowed to use her left arm, so her right arm has been doing everything over the last month, resulting in severe right shoulder pain. 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 Prior Treatments and Tests Long history of prior physical therapy for various complaints Treatment Goals Patient/Caregiver Goals Return to being able to go for regular walks PT-OP-C Subjective Start: 11/25/20 14:34 Freq: Status: Active Protocol: Document 01/21/21 13:45 DCW (Rec: 01/21/21 14:29 DCW [id number]) OP-PT Subjective Patient Comments Patient Comments I'm doing better than I was on Monday. PT-OP-E Functional Tests Start: 11/25/20 14:34 Freq: Status: Active Protocol: Document 01/21/21 13:45 DCW (Rec: 01/21/21 14:11 DCW [id number]) Functional Tests 2 Minute Walk Test Distance 376' Device Used /c cane 30 Second Sit to Stand Test Score x10 PT-OP-F Manual Assessment Start: 11/25/20 14:34 Freq: Status: Active Protocol: Document 01/21/21 13:45 DCW (Rec: 01/21/21 14:11 DCW [id number]) Manual Assessments Soft Tissue Assessment Soft Tissue Mobility Assessment Mild tinghtness with tenderness to palpation 1/4: complaint of pain along bilateral T/L paraspinals, B QL PT-OP-L Special Tests Start: 11/25/20 14:34 Freq: Status: Active Protocol: Document 01/21/21 13:45 DCW (Rec: 01/21/21 14:11 DCW [id number]) Special Tests Lumbar Spine Special Tests Straight Leg Raise Test Results HS tightness at 75? L Slump Test Results Negative Manual Traction Test Results Improves symptoms Compression Test Results Negative PT-OP-M Strength Start: 11/25/20 14:34 Freq: Status: Active Protocol: Document 01/21/21 13:45 DCW (Rec: 01/21/21 14:11 DCW [id number]) Hip Strength Hip Manual Muscle Testing Right Flexion (L2) 4 Good Extension (S1) 4 Good Abduction 4 Good Adduction 4+ Good+ Left Flexion (L2) 3+ Fair+ Extension (S1) 4 Good Abduction 4 Good Adduction 4 Good Knee Strength Knee Manual Muscle Testing Right Flexion (S2) 4 Good Extension (L3) 4 Good Left Flexion (S2) 4 Good Extension (L3) 4+ Good+ Ankle/Foot Strength Ankle and Foot Manual Muscle Testing Right Dorsiflexion (L4) 4 Good Plantarflexion (S1) 4 Good Left Dorsiflexion (L4) 4 Good Plantarflexion (S1) 4 Good PT-OP-Q Treatments Start: 11/25/20 14:34 Freq: Status: Active Protocol: Document 01/21/21 13:45 DCW (Rec: 01/21/21 14:29 DCW [id number]) Cardio Equipment Recumbent Elliptical (Biodex) Duration (Minutes) 5 Resistance 4 Seat Position 8 PT-OP-R Modalities Start: 11/25/20 14:34 Freq: Status: Active Protocol: Document 01/21/21 13:45 DCW (Rec: 01/21/21 14:30 DCW [id number]) Hot Pack/Cold Pack Treatment Hot Pack Location low back, R shd Patient Position Hooklying Treatment Duration (minutes) 10 Patient Tolerance Good PT-OP-T Assessment and Plan Start: 11/25/20 14:34 Freq: Status: Active Protocol: Document 01/21/21 13:45 DCW (Rec: 01/21/21 14:29 DCW [id number]) Physical Therapy Assessment Impairments Impairments Activity Tolerance,Functional Activities,Functional Mobility ,Gait,Pain,ROM,Soft Tissue Mobility,Strength Goals Three Impairment Pt scores a 7 on the 30 sit to stand test Short Term Goal (STG) 01/07 goal met pt completed 11times STS from a 20 inches chair without pushing off with UEs. Whittling Room Operator Goal (LTG) According to the CDC women 70- 79 who score <10 on the 30 second sit to stand test are at an increased risk of falls. Pt to score >9 on the 30 second sit to stand test to demonstrate decreased falls risk. LTG Duration Met Two Impairment Pt presents with signficant lower extremity weakness Penitentiary Goal (LTG) Pt to improve LE strength to at least 4/5 in all planes in order to enable her to get into her truck without putting increased stress on her shoulder LTG Duration 02/24/21 - 4-/5 left hip flexion One Impairment Pt does not have an appropriate HEP Impairment 01/07 goal met pt has been doing HEP for her shoulder and back. Short Term Goal (STG) Pt to be independent and compliant with an appropriate HEP STG Duration Met Assessment Summary Assessment Pt making great progress, may be at least partially due to recent course of predisone. Should continue to benefit some from continued strengthening and tone management. May be approaching plateau in progress, may be looking at discharge following completion of next scheduled visits. Physical Therapy Plan Frequency and Duration Frequency of Treatment 2x/Week Duration of Treatment 5 weeks Plan of Care Start Date 01/21/21 Plan of Care End Date 02/26/21 Therapeutic Interventions Therapeutic Interventions Balance Training,Gait Training ,Home Exercise Program,Manual Therapy,Patient/Caregiver Education,Self-Care/Home Management,Soft Tissue Mobilization,Therapeutic Activities,Therapeutic Exercises Modalities Cold Pack/Ice Massage,Electric Stimulation,Hot Packs, Ultrasound Next Visit Focus/Plan Next Note Type Treatment Note Next Visit Plan Strengthening, STM, pain- control modalities, gait training, increased activity tolerance
--- NOTE | 2021-01-26 12:11 | PT.OTN ---
Current Diagnoses Low back pain (01/26/21) Muscle weakness (generalized) (01/26/21) Chronic fatigue, unspecified (01/26/21) Physical Therapy Treatment Note PT-OP-A Visit Information Start: 11/25/20 14:34 Freq: Status: Active Protocol: Document 01/26/21 11:20 HH (Rec: 01/26/21 12:11 [id number]) Out-Patient Physical Therapy Visit Information Visit Information Visit Type Treatment Note Visit Start Time 11:15 Visit Stop Time 12:10 Total Visit Minutes 55 Visit Number 14 Number of TOLL TICKET CLERK Visits 0 PT-OP-B Current Condition Start: 11/25/20 14:34 Freq: Status: Active Protocol: Document 11/25/20 11:15 DCW (Rec: 11/25/20 14:57 DCW [id number]) Current Condition History of Current Condition Onset Date One month Current Complaints Low back pain, weakness, shoulder pain, fatigue, difficulty ambulating History of Current Condition Pt is a 80 year old female very well known to this clinic presenting with multitude complaints today, mostly stemming from a decline in function following a fall on . Pt apparently was walking into her dialysis clinic, became very fatigued, sat down on the curb to recover. Pt notes she went to get up, and then next she knew the paramedics were there. Pt had apparently had a syncopal episode, fell, had numerous scrapes and bruises along her left side, and had to have her left arm wrapped up to allow the skin to heal. Pt notes that she was not allowed to use her left arm, so her right arm has been doing everything over the last month, resulting in severe right shoulder pain. 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 Prior Treatments and Tests Long history of prior physical therapy for various complaints Treatment Goals Patient/Caregiver Goals Return to being able to go for regular walks PT-OP-C Subjective Start: 11/25/20 14:34 Freq: Status: Active Protocol: Document 01/26/21 11:20 HH (Rec: 01/26/21 12:11 [id number]) OP-PT Subjective Patient Comments Patient Comments Im doing pretty good for the back and the shoulder too. PT-OP-E Functional Tests Start: 11/25/20 14:34 Freq: Status: Active Protocol: Document 01/21/21 13:45 DCW (Rec: 01/21/21 14:11 DCW [id number]) Functional Tests 2 Minute Walk Test Distance 376' Device Used /c cane 30 Second Sit to Stand Test Score x10 PT-OP-F Manual Assessment Start: 11/25/20 14:34 Freq: Status: Active Protocol: Document 01/21/21 13:45 DCW (Rec: 01/21/21 14:11 DCW [id number]) Manual Assessments Soft Tissue Assessment Soft Tissue Mobility Assessment Mild tinghtness with tenderness to palpation 1/: complaint of pain along bilateral T/L paraspinals, B QL PT-OP-L Special Tests Start: 11/25/20 14:34 Freq: Status: Active Protocol: Document 01/21/21 13:45 DCW (Rec: 01/21/21 14:11 DCW [id number]) Special Tests Lumbar Spine Special Tests Straight Leg Raise Test Results HS tightness at 75? L Slump Test Results Negative Manual Traction Test Results Improves symptoms Compression Test Results Negative PT-OP-M Strength Start: 11/25/20 14:34 Freq: Status: Active Protocol: Document 01/21/21 13:45 DCW (Rec: 01/21/21 14:11 DCW [id number]) Hip Strength Hip Manual Muscle Testing Right Flexion (L2) 4 Good Extension (S1) 4 Good Abduction 4 Good Adduction 4+ Good+ Left Flexion (L2) 3+ Fair+ Extension (S1) 4 Good Abduction 4 Good Adduction 4 Good Knee Strength Knee Manual Muscle Testing Right Flexion (S2) 4 Good Extension (L3) 4 Good Left Flexion (S2) 4 Good Extension (L3) 4+ Good+ Ankle/Foot Strength Ankle and Foot Manual Muscle Testing Right Dorsiflexion (L4) 4 Good Plantarflexion (S1) 4 Good Left Dorsiflexion (L4) 4 Good Plantarflexion (S1) 4 Good PT-OP-Q Treatments Start: 11/25/20 14:34 Freq: Status: Active Protocol: Document 01/26/21 11:20 HH (Rec: 01/26/21 12:11 HH [id number]) Cardio Equipment Recumbent Stepper (Sci-Fit) Duration (Minutes) 5 Resistance 2 Seat Position 8 Gym Equipment Shuttle Recovery Unilateral Squats Resistance 50# Reps/Time 8x2 Bilateral Squats Resistance 75# Reps/Time x20x2 Therapeutic Exercises Supine Exercises figure 4 Side right Reps/Minutes 30s x5 Comments for HEP Sitting Exercises ball roll Side bilateral Equipment Used red therapy ball Reps/Minutes 10 x2 shoulder press Side bilateral Equipment Used with basketball Reps/Minutes 10 x2 ecuadorean twist Sitting Exercise Name seated trunk rotation Equipment Used basketball Reps/Minutes 10x2 Standing Exercises STS Reps/Minutes 10x2 Comments pain on R knee for first set, no pain after manual therapy Manual Therapy Treatment Soft Tissue Mobilization R TFL Mobilization Type Myofascial Release,Sustained Pressure,Trigger Point Release Intensity/Depth Moderate Body Position Sidelying Comments significant hypertoncity noted today. PT-OP-R Modalities Start: 11/25/20 14:34 Freq: Status: Active Protocol: Document 01/26/21 11:20 (Rec: 01/26/21 12:11 [id number]) Hot Pack/Cold Pack Treatment Hot Pack Location low back, R shd Patient Position Hooklying Treatment Duration (minutes) 10 Patient Tolerance Good PT-OP-T Assessment and Plan Start: 11/25/20 14:34 Freq: Status: Active Protocol: Document 01/26/21 11:20 (Rec: 01/26/21 12:11 [id number]) Physical Therapy Assessment Goals Three Impairment Pt scores a 7 on the 30 sit to stand test Short Term Goal (STG) 01/07 goal met pt completed 11times STS from a 20 inches chair without pushing off with UEs. Retirement Goal (LTG) According to the CDC women 70- 79 who score <10 on the 30 second sit to stand test are at an increased risk of falls. Pt to score >9 on the 30 second sit to stand test to demonstrate decreased falls risk. LTG Duration Met Two Impairment Pt presents with signficant lower extremity weakness Retirement Goal (LTG) Pt to improve LE strength to at least 4/5 in all planes in order to enable her to get into her truck without putting increased stress on her shoulder LTG Duration 02/24/21 - 4-/5 left hip flexion One Impairment Pt does not have an appropriate HEP Impairment 01/07 goal met pt has been doing HEP for her shoulder and back. Short Term Goal (STG) Pt to be independent and compliant with an appropriate HEP STG Duration Met Assessment Summary Assessment pt is doing well today. She c/ o R lateral knee pain during STS/ walking. I noticed pt has significant toncity at R TFL, she has no pain at R knee after manual therapy. Physical Therapy Plan Frequency and Duration Frequency of Treatment 2x/Week Duration of Treatment 5 weeks Plan of Care Start Date 01/21/21 Plan of Care End Date 02/26/21 Therapeutic Interventions Therapeutic Interventions Balance Training,Gait Training ,Home Exercise Program,Manual Therapy,Patient/Caregiver Education,Self-Care/Home Management,Soft Tissue Mobilization,Therapeutic Activities,Therapeutic Exercises Modalities Cold Pack/Ice Massage,Electric Stimulation,Hot Packs, Ultrasound Next Visit Focus/Plan Next Note Type Treatment Note Next Visit Plan Strengthening, STM, pain- control modalities, gait training, increased activity tolerance
--- NOTE | 2021-01-28 12:02 | PT.OTN ---
Current Diagnoses Low back pain (01/28/21) Muscle weakness (generalized) (01/28/21) Chronic fatigue, unspecified (01/28/21) Physical Therapy Treatment Note PT-OP-A Visit Information Start: 11/25/20 14:34 Freq: Status: Active Protocol: Document 01/28/21 11:24 HH (Rec: 01/28/21 12:02 [id number]) Out-Patient Physical Therapy Visit Information Visit Information Visit Type Treatment Note Visit Start Time 11:16 Visit Stop Time 12:00 Total Visit Minutes 44 Visit Number 15 Number of MANAGER DRUG Visits 0 PT-OP-B Current Condition Start: 11/25/20 14:34 Freq: Status: Active Protocol: Document 11/25/20 11:15 DCW (Rec: 11/25/20 14:57 DCW [id number]) Current Condition History of Current Condition Onset Date One month Current Complaints Low back pain, weakness, shoulder pain, fatigue, difficulty ambulating History of Current Condition Pt is a 80 year old female very well known to this clinic presenting with multitude complaints today, mostly stemming from a decline in function following a fall on . Pt apparently was walking into her dialysis clinic, became very fatigued, sat down on the curb to recover. Pt notes she went to get up, and then next she knew the paramedics were there. Pt had apparently had a syncopal episode, fell, had numerous scrapes and bruises along her left side, and had to have her left arm wrapped up to allow the skin to heal. Pt notes that she was not allowed to use her left arm, so her right arm has been doing everything over the last month, resulting in severe right shoulder pain. 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 Prior Treatments and Tests Long history of prior physical therapy for various complaints Treatment Goals Patient/Caregiver Goals Return to being able to go for regular walks PT-OP-C Subjective Start: 11/25/20 14:34 Freq: Status: Active Protocol: Document 01/28/21 11:24 HH (Rec: 01/28/21 12:02 [id number]) OP-PT Subjective Patient Comments Patient Comments My R knee feels so much better after last time. My shoulder is happy too. Patient Reported Progress Improving PT-OP-E Functional Tests Start: 11/25/20 14:34 Freq: Status: Active Protocol: Document 01/21/21 13:45 DCW (Rec: 01/21/21 14:11 DCW [id number]) Functional Tests 2 Minute Walk Test Distance 376' Device Used /c cane 30 Second Sit to Stand Test Score x10 PT-OP-F Manual Assessment Start: 11/25/20 14:34 Freq: Status: Active Protocol: Document 01/21/21 13:45 DCW (Rec: 01/21/21 14:11 DCW [id number]) Manual Assessments Soft Tissue Assessment Soft Tissue Mobility Assessment Mild tinghtness with tenderness to palpation 1/4: complaint of pain along bilateral T/L paraspinals, B QL PT-OP-L Special Tests Start: 11/25/20 14:34 Freq: Status: Active Protocol: Document 01/21/21 13:45 DCW (Rec: 01/21/21 14:11 DCW [id number]) Special Tests Lumbar Spine Special Tests Straight Leg Raise Test Results HS tightness at 75? L Slump Test Results Negative Manual Traction Test Results Improves symptoms Compression Test Results Negative PT-OP-M Strength Start: 11/25/20 14:34 Freq: Status: Active Protocol: Document 01/21/21 13:45 DCW (Rec: 01/21/21 14:11 DCW [id number]) Hip Strength Hip Manual Muscle Testing Right Flexion (L2) 4 Good Extension (S1) 4 Good Abduction 4 Good Adduction 4+ Good+ Left Flexion (L2) 3+ Fair+ Extension (S1) 4 Good Abduction 4 Good Adduction 4 Good Knee Strength Knee Manual Muscle Testing Right Flexion (S2) 4 Good Extension (L3) 4 Good Left Flexion (S2) 4 Good Extension (L3) 4+ Good+ Ankle/Foot Strength Ankle and Foot Manual Muscle Testing Right Dorsiflexion (L4) 4 Good Plantarflexion (S1) 4 Good Left Dorsiflexion (L4) 4 Good Plantarflexion (S1) 4 Good PT-OP-Q Treatments Start: 11/25/20 14:34 Freq: Status: Active Protocol: Document 01/28/21 11:24 HH (Rec: 01/28/21 12:02 [id number]) Cardio Equipment Recumbent Stepper (Sci-Fit) Duration (Minutes) 8 Resistance 2 Seat Position 8 Gym Equipment Shuttle Recovery Unilateral Squats Resistance 50# Reps/Time 8x2 Bilateral Squats Resistance 87# Reps/Time x20x2 Therapeutic Exercises Supine Exercises leg curl Equipment Used red therapt ball Reps/Minutes 10 x2 Comments back flat SLR Supine Exercise Name hooklying position, Side bilateral Reps/Minutes 6 x2 Comments cues on back flat, Manual Therapy Treatment Soft Tissue Mobilization R TFL Mobilization Type Myofascial Release,Sustained Pressure,Trigger Point Release Intensity/Depth Moderate Body Position Sidelying Comments significant hypertoncity noted today. PT-OP-R Modalities Start: 11/25/20 14:34 Freq: Status: Active Protocol: Document 01/26/21 11:20 HH (Rec: 01/26/21 12:11 [id number]) Hot Pack/Cold Pack Treatment Hot Pack Location low back, R shd Patient Position Hooklying Treatment Duration (minutes) 10 Patient Tolerance Good PT-OP-T Assessment and Plan Start: 11/25/20 14:34 Freq: Status: Active Protocol: Document 01/28/21 11:24 HH (Rec: 01/28/21 12:02 [id number]) Physical Therapy Assessment Goals Three Impairment Pt scores a 7 on the 30 sit to stand test Short Term Goal (STG) 01/07 goal met pt completed 11times STS from a 20 inches chair without pushing off with UEs. Intermediate Goal (LTG) According to the CDC women 70- 79 who score <10 on the 30 second sit to stand test are at an increased risk of falls. Pt to score >9 on the 30 second sit to stand test to demonstrate decreased falls risk. LTG Duration Met Two Impairment Pt presents with signficant lower extremity weakness Flute Teacher Goal (LTG) Pt to improve LE strength to at least 4/5 in all planes in order to enable her to get into her truck without putting increased stress on her shoulder LTG Duration 02/24/21 - 4-/5 left hip flexion One Impairment Pt does not have an appropriate HEP Impairment 01/07 goal met pt has been doing HEP for her shoulder and back. Short Term Goal (STG) Pt to be independent and compliant with an appropriate HEP STG Duration Met Assessment Summary Assessment pt reports her R knee pain is significant improved but her hypertonicity noted at R TFL. Pt is interested in signing up for gym membership at [facility]. Physical Therapy Plan Frequency and Duration Frequency of Treatment 2x/Week Duration of Treatment 5 weeks Plan of Care Start Date 01/21/21 Plan of Care End Date 02/26/21 Therapeutic Interventions Therapeutic Interventions Balance Training,Gait Training ,Home Exercise Program,Manual Therapy,Patient/Caregiver Education,Self-Care/Home Management,Soft Tissue Mobilization,Therapeutic Activities,Therapeutic Exercises Modalities Cold Pack/Ice Massage,Electric Stimulation,Hot Packs, Ultrasound Next Visit Focus/Plan Next Note Type Treatment Note Next Visit Plan Strengthening, STM, pain- control modalities, gait training, increased activity tolerance
--- NOTE | 2021-02-03 12:42 | PT.OTN ---
Current Diagnoses Low back pain (02/03/21) Muscle weakness (generalized) (02/03/21) Chronic fatigue, unspecified (02/03/21) Physical Therapy Treatment Note PT-OP-A Visit Information Start: 11/25/20 14:34 Freq: Status: Active Protocol: Document 02/03/21 12:00 DCW (Rec: 02/03/21 12:42 DCW [id number]) Out-Patient Physical Therapy Visit Information Visit Information Visit Type Treatment Note Visit Start Time 12:00 Visit Stop Time 12:50 Total Visit Minutes 50 Visit Number 16 Number of [employer] Visits 0 Evaluation Information Evaluation Date 11/25/20 PT-OP-B Current Condition Start: 11/25/20 14:34 Freq: Status: Active Protocol: Document 11/25/20 11:15 DCW (Rec: 11/25/20 14:57 DCW [id number]) Current Condition History of Current Condition Onset Date One month Current Complaints Low back pain, weakness, shoulder pain, fatigue, difficulty ambulating History of Current Condition Pt is a 80 year old female very well known to this clinic presenting with multitude complaints today, mostly stemming from a decline in function following a fall on . Pt apparently was walking into her dialysis clinic, became very fatigued, sat down on the curb to recover. Pt notes she went to get up, and then next she knew the paramedics were there. Pt had apparently had a syncopal episode, fell, had numerous scrapes and bruises along her left side, and had to have her left arm wrapped up to allow the skin to heal. Pt notes that she was not allowed to use her left arm, so her right arm has been doing everything over the last month, resulting in severe right shoulder pain. 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 Prior Treatments and Tests Long history of prior physical therapy for various complaints Treatment Goals Patient/Caregiver Goals Return to being able to go for regular walks PT-OP-C Subjective Start: 11/25/20 14:34 Freq: Status: Active Protocol: Document 02/03/21 12:00 DCW (Rec: 02/03/21 12:42 DCW [id number]) OP-PT Subjective Patient Comments Patient Comments I've done more since 8 o' clock htis morning than I usually get done in two days. PT-OP-E Functional Tests Start: 11/25/20 14:34 Freq: Status: Active Protocol: Document 01/21/21 13:45 DCW (Rec: 01/21/21 14:11 DCW [id number]) Functional Tests 2 Minute Walk Test Distance 376' Device Used /c cane 30 Second Sit to Stand Test Score x10 PT-OP-F Manual Assessment Start: 11/25/20 14:34 Freq: Status: Active Protocol: Document 01/21/21 13:45 DCW (Rec: 01/21/21 14:11 DCW [id number]) Manual Assessments Soft Tissue Assessment Soft Tissue Mobility Assessment Mild tinghtness with tenderness to palpation 1/4: complaint of pain along bilateral T/L paraspinals, B QL PT-OP-L Special Tests Start: 11/25/20 14:34 Freq: Status: Active Protocol: Document 01/21/21 13:45 DCW (Rec: 01/21/21 14:11 DCW [id number]) Special Tests Lumbar Spine Special Tests Straight Leg Raise Test Results HS tightness at 75? L Slump Test Results Negative Manual Traction Test Results Improves symptoms Compression Test Results Negative PT-OP-M Strength Start: 11/25/20 14:34 Freq: Status: Active Protocol: Document 01/21/21 13:45 DCW (Rec: 01/21/21 14:11 DCW [id number]) Hip Strength Hip Manual Muscle Testing Right Flexion (L2) 4 Good Extension (S1) 4 Good Abduction 4 Good Adduction 4+ Good+ Left Flexion (L2) 3+ Fair+ Extension (S1) 4 Good Abduction 4 Good Adduction 4 Good Knee Strength Knee Manual Muscle Testing Right Flexion (S2) 4 Good Extension (L3) 4 Good Left Flexion (S2) 4 Good Extension (L3) 4+ Good+ Ankle/Foot Strength Ankle and Foot Manual Muscle Testing Right Dorsiflexion (L4) 4 Good Plantarflexion (S1) 4 Good Left Dorsiflexion (L4) 4 Good Plantarflexion (S1) 4 Good PT-OP-Q Treatments Start: 11/25/20 14:34 Freq: Status: Active Protocol: Document 02/03/21 12:00 DCW (Rec: 02/03/21 12:42 DCW [id number]) Cardio Equipment Recumbent Elliptical (Biodex) Duration (Minutes) 6 Resistance 4 Seat Position 8 Gym Equipment Shuttle Recovery Unilateral Squats Resistance 50# Reps/Time 8x2 Bilateral Squats Resistance 87# Reps/Time x20x2 Manual Therapy Treatment Soft Tissue Mobilization R TFL Mobilization Type Myofascial Release,Sustained Pressure,Trigger Point Release Intensity/Depth Moderate Body Position Sidelying Comments significant hypertoncity noted today. Piriformis Body Location L Piriformis Mobilization Type Strumming,Sustained Pressure Intensity/Depth Deep Body Position Sidelying PT-OP-R Modalities Start: 11/25/20 14:34 Freq: Status: Active Protocol: Document 02/03/21 12:00 DCW (Rec: 02/03/21 12:42 DCW [id number]) Hot Pack/Cold Pack Treatment Hot Pack Location low back, R shd Patient Position Hooklying Treatment Duration (minutes) 10 Patient Tolerance Good PT-OP-T Assessment and Plan Start: 11/25/20 14:34 Freq: Status: Active Protocol: Document 02/03/21 12:00 DCW (Rec: 02/03/21 12:42 DCW [id number]) Physical Therapy Assessment Goals Three Impairment Pt scores a 7 on the 30 sit to stand test Short Term Goal (STG) 01/07 goal met pt completed 11times STS from a 20 inches chair without pushing off with UEs. Usp Goal (LTG) According to the CDC women 70- 79 who score <10 on the 30 second sit to stand test are at an increased risk of falls. Pt to score >9 on the 30 second sit to stand test to demonstrate decreased falls risk. LTG Duration Met Two Impairment Pt presents with signficant lower extremity weakness Neurodiagnostic Technologist Goal (LTG) Pt to improve LE strength to at least 4/5 in all planes in order to enable her to get into her truck without putting increased stress on her shoulder LTG Duration 02/24/21 - 4-/5 left hip flexion One Impairment Pt does not have an appropriate HEP Impairment 01/07 goal met pt has been doing HEP for her shoulder and back. Short Term Goal (STG) Pt to be independent and compliant with an appropriate HEP STG Duration Met Assessment Summary Assessment Discussed again pt getting tennis ball for self STM of FTL, pt hoping to go get one later today. Pt's knee pain has been highly variable, better today, but sore overall after a busy morning. Physical Therapy Plan Frequency and Duration Frequency of Treatment 2x/Week Duration of Treatment 5 weeks Plan of Care Start Date 01/21/21 Plan of Care End Date 02/26/21 Therapeutic Interventions Therapeutic Interventions Balance Training,Gait Training ,Home Exercise Program,Manual Therapy,Patient/Caregiver Education,Self-Care/Home Management,Soft Tissue Mobilization,Therapeutic Activities,Therapeutic Exercises Modalities Cold Pack/Ice Massage,Electric Stimulation,Hot Packs, Ultrasound Next Visit Focus/Plan Next Note Type Treatment Note Next Visit Plan Strengthening, STM, pain- control modalities, gait training, increased activity tolerance
--- NOTE | 2021-02-08 11:25 | PT.OTN ---
Current Diagnoses Low back pain (02/08/21) Muscle weakness (generalized) (02/08/21) Chronic fatigue, unspecified (02/08/21) Physical Therapy Treatment Note PT-OP-A Visit Information Start: 11/25/20 14:34 Freq: Status: Active Protocol: Document 02/08/21 10:39 HH (Rec: 02/08/21 11:24 [id number]) Out-Patient Physical Therapy Visit Information Visit Information Visit Type Treatment Note Visit Start Time 10:30 Visit Stop Time 11:25 Total Visit Minutes 55 Visit Number 17 Number of ELECTRONIC TESTER Visits 0 PT-OP-B Current Condition Start: 11/25/20 14:34 Freq: Status: Active Protocol: Document 11/25/20 11:15 DCW (Rec: 11/25/20 14:57 DCW [id number]) Current Condition History of Current Condition Onset Date One month Current Complaints Low back pain, weakness, shoulder pain, fatigue, difficulty ambulating History of Current Condition Pt is a 80 year old female very well known to this clinic presenting with multitude complaints today, mostly stemming from a decline in function following a fall on . Pt apparently was walking into her dialysis clinic, became very fatigued, sat down on the curb to recover. Pt notes she went to get up, and then next she knew the paramedics were there. Pt had apparently had a syncopal episode, fell, had numerous scrapes and bruises along her left side, and had to have her left arm wrapped up to allow the skin to heal. Pt notes that she was not allowed to use her left arm, so her right arm has been doing everything over the last month, resulting in severe right shoulder pain. 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 Prior Treatments and Tests Long history of prior physical therapy for various complaints Treatment Goals Patient/Caregiver Goals Return to being able to go for regular walks PT-OP-C Subjective Start: 11/25/20 14:34 Freq: Status: Active Protocol: Document 02/08/21 10:39 HH (Rec: 02/08/21 11:24 HH [id number]) OP-PT Subjective Patient Comments Patient Comments Im feeling pretty good and i didnt need to use the cane.My shoulder and knee are doing well. I didnt get a tennis ball. Patient Reported Progress Improving PT-OP-E Functional Tests Start: 11/25/20 14:34 Freq: Status: Active Protocol: Document 01/21/21 13:45 DCW (Rec: 01/21/21 14:11 DCW [id number]) Functional Tests 2 Minute Walk Test Distance 376' Device Used /c cane 30 Second Sit to Stand Test Score x10 PT-OP-F Manual Assessment Start: 11/25/20 14:34 Freq: Status: Active Protocol: Document 01/21/21 13:45 DCW (Rec: 01/21/21 14:11 DCW [id number]) Manual Assessments Soft Tissue Assessment Soft Tissue Mobility Assessment Mild tinghtness with tenderness to palpation 1/4: complaint of pain along bilateral T/L paraspinals, B QL PT-OP-L Special Tests Start: 11/25/20 14:34 Freq: Status: Active Protocol: Document 01/21/21 13:45 DCW (Rec: 01/21/21 14:11 DCW [id number]) Special Tests Lumbar Spine Special Tests Straight Leg Raise Test Results HS tightness at 75? L Slump Test Results Negative Manual Traction Test Results Improves symptoms Compression Test Results Negative PT-OP-M Strength Start: 11/25/20 14:34 Freq: Status: Active Protocol: Document 01/21/21 13:45 DCW (Rec: 01/21/21 14:11 DCW [id number]) Hip Strength Hip Manual Muscle Testing Right Flexion (L2) 4 Good Extension (S1) 4 Good Abduction 4 Good Adduction 4+ Good+ Left Flexion (L2) 3+ Fair+ Extension (S1) 4 Good Abduction 4 Good Adduction 4 Good Knee Strength Knee Manual Muscle Testing Right Flexion (S2) 4 Good Extension (L3) 4 Good Left Flexion (S2) 4 Good Extension (L3) 4+ Good+ Ankle/Foot Strength Ankle and Foot Manual Muscle Testing Right Dorsiflexion (L4) 4 Good Plantarflexion (S1) 4 Good Left Dorsiflexion (L4) 4 Good Plantarflexion (S1) 4 Good PT-OP-Q Treatments Start: 11/25/20 14:34 Freq: Status: Active Protocol: Document 02/08/21 10:39 HH (Rec: 02/08/21 11:24 [id number]) Cardio Equipment Recumbent Stepper (Sci-Fit) Duration (Minutes) 8 Resistance 2 Seat Position 8 Gym Equipment Shuttle Recovery Unilateral Squats Resistance 50# Reps/Time 8x2 Bilateral Squats Resistance 87# Reps/Time x20x2, cues on neutral knee alignment. Therapeutic Exercises Sitting Exercises seated flexion Sitting Exercise Name ball roll forward Reps/Minutes 10 x2 ball roll Sitting Exercise Name rotation, cat camel in seated Side bilateral Equipment Used red therapy ball Reps/Minutes 10 x2 honduran twist Sitting Exercise Name seated trunk rotation Equipment Used basketball Reps/Minutes 10x2 Manual Therapy Treatment Soft Tissue Mobilization R TFL Mobilization Type Myofascial Release,Sustained Pressure,Trigger Point Release Intensity/Depth Moderate Body Position Sidelying Comments significant hypertoncity noted at IT band today. PT-OP-R Modalities Start: 11/25/20 14:34 Freq: Status: Active Protocol: Document 02/08/21 10:39 HH (Rec: 02/08/21 11:24 [id number]) Hot Pack/Cold Pack Treatment Hot Pack Location low back, R hip Patient Position Hooklying Treatment Duration (minutes) 10 Patient Tolerance Good PT-OP-T Assessment and Plan Start: 11/25/20 14:34 Freq: Status: Active Protocol: Document 02/08/21 10:39 HH (Rec: 02/08/21 11:24 [id number]) Physical Therapy Assessment Goals Three Impairment Pt scores a 7 on the 30 sit to stand test Short Term Goal (STG) 01/07 goal met pt completed 11times STS from a 20 inches chair without pushing off with UEs. [employer] Goal (LTG) According to the CDC women 70- 79 who score <10 on the 30 second sit to stand test are at an increased risk of falls. Pt to score >9 on the 30 second sit to stand test to demonstrate decreased falls risk. LTG Duration Met Two Impairment Pt presents with signficant lower extremity weakness [employer] Goal (LTG) Pt to improve LE strength to at least 4/5 in all planes in order to enable her to get into her truck without putting increased stress on her shoulder LTG Duration 02/24/21 - 4-/5 left hip flexion One Impairment Pt does not have an appropriate HEP Impairment 01/07 goal met pt has been doing HEP for her shoulder and back. Short Term Goal (STG) Pt to be independent and compliant with an appropriate HEP STG Duration Met Assessment Summary Assessment pt reports doing well for both R knee and R shoulder. This session focused on gross back ROM and LE strengthening. No increase in discomfort noted. Physical Therapy Plan Frequency and Duration Frequency of Treatment 2x/Week Duration of Treatment 5 weeks Plan of Care Start Date 01/21/21 Plan of Care End Date 02/26/21 Therapeutic Interventions Therapeutic Interventions Balance Training,Gait Training ,Home Exercise Program,Manual Therapy,Patient/Caregiver Education,Self-Care/Home Management,Soft Tissue Mobilization,Therapeutic Activities,Therapeutic Exercises Modalities Cold Pack/Ice Massage,Electric Stimulation,Hot Packs, Ultrasound Next Visit Focus/Plan Next Note Type Treatment Note Next Visit Plan Strengthening, STM, pain- control modalities, gait training, increased activity tolerance
--- NOTE | 2021-02-11 16:11 | PT.OTN ---
Current Diagnoses Low back pain (02/11/21) Muscle weakness (generalized) (02/11/21) Chronic fatigue, unspecified (02/11/21) Physical Therapy Treatment Note PT-OP-A Visit Information Start: 11/25/20 14:34 Freq: Status: Active Protocol: Document 02/11/21 14:38 HH (Rec: 02/11/21 16:11 [id number]) Out-Patient Physical Therapy Visit Information Visit Information Visit Type Treatment Note Visit Start Time 14:30 Visit Stop Time 15:24 Total Visit Minutes 54 Visit Number 18 Number of PHOTOSTAT OPERATOR Visits 0 PT-OP-B Current Condition Start: 11/25/20 14:34 Freq: Status: Active Protocol: Document 11/25/20 11:15 DCW (Rec: 11/25/20 14:57 DCW [id number]) Current Condition History of Current Condition Onset Date One month Current Complaints Low back pain, weakness, shoulder pain, fatigue, difficulty ambulating History of Current Condition Pt is a 80 year old female very well known to this clinic presenting with multitude complaints today, mostly stemming from a decline in function following a fall on . Pt apparently was walking into her dialysis clinic, became very fatigued, sat down on the curb to recover. Pt notes she went to get up, and then next she knew the paramedics were there. Pt had apparently had a syncopal episode, fell, had numerous scrapes and bruises along her left side, and had to have her left arm wrapped up to allow the skin to heal. Pt notes that she was not allowed to use her left arm, so her right arm has been doing everything over the last month, resulting in severe right shoulder pain. 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 Prior Treatments and Tests Long history of prior physical therapy for various complaints Treatment Goals Patient/Caregiver Goals Return to being able to go for regular walks PT-OP-C Subjective Start: 11/25/20 14:34 Freq: Status: Active Protocol: Document 02/11/21 14:38 HH (Rec: 02/11/21 16:11 [id number]) OP-PT Subjective Patient Comments Patient Comments I dont feel like using the cane lately possbily due to my pain is less from the prenidsone. I did a lot of walking yesterday which obther my side of the knee. Patient Reported Progress Improving PT-OP-E Functional Tests Start: 11/25/20 14:34 Freq: Status: Active Protocol: Document 01/21/21 13:45 DCW (Rec: 01/21/21 14:11 DCW [id number]) Functional Tests 2 Minute Walk Test Distance 376' Device Used /c cane 30 Second Sit to Stand Test Score x10 PT-OP-F Manual Assessment Start: 11/25/20 14:34 Freq: Status: Active Protocol: Document 01/21/21 13:45 DCW (Rec: 01/21/21 14:11 DCW [id number]) Manual Assessments Soft Tissue Assessment Soft Tissue Mobility Assessment Mild tinghtness with tenderness to palpation 1/4: complaint of pain along bilateral T/L paraspinals, B QL PT-OP-L Special Tests Start: 11/25/20 14:34 Freq: Status: Active Protocol: Document 01/21/21 13:45 DCW (Rec: 01/21/21 14:11 DCW [id number]) Special Tests Lumbar Spine Special Tests Straight Leg Raise Test Results HS tightness at 75? L Slump Test Results Negative Manual Traction Test Results Improves symptoms Compression Test Results Negative PT-OP-M Strength Start: 11/25/20 14:34 Freq: Status: Active Protocol: Document 01/21/21 13:45 DCW (Rec: 01/21/21 14:11 DCW [id number]) Hip Strength Hip Manual Muscle Testing Right Flexion (L2) 4 Good Extension (S1) 4 Good Abduction 4 Good Adduction 4+ Good+ Left Flexion (L2) 3+ Fair+ Extension (S1) 4 Good Abduction 4 Good Adduction 4 Good Knee Strength Knee Manual Muscle Testing Right Flexion (S2) 4 Good Extension (L3) 4 Good Left Flexion (S2) 4 Good Extension (L3) 4+ Good+ Ankle/Foot Strength Ankle and Foot Manual Muscle Testing Right Dorsiflexion (L4) 4 Good Plantarflexion (S1) 4 Good Left Dorsiflexion (L4) 4 Good Plantarflexion (S1) 4 Good PT-OP-Q Treatments Start: 11/25/20 14:34 Freq: Status: Active Protocol: Document 02/11/21 14:38 (Rec: 02/11/21 16:11 [id number]) Cardio Equipment Recumbent Stepper (Sci-Fit) Duration (Minutes) 8 Resistance 2 Seat Position 8 Therapeutic Exercises Supine Exercises piriformis stretch Side right Reps/Minutes 20 x 5 Comments for HEP Standing Exercises lunges for weight shift Standing Exercise Name gait training Side right Reps/Minutes 10 x2 Comments cues on hip ER and neutral foot alignment Gait Training Gait Activity gait Comments cues on reducing knee valgus moment during stance phase Manual Therapy Treatment Soft Tissue Mobilization R TFL Mobilization Type Myofascial Release,Sustained Pressure,Trigger Point Release Intensity/Depth Moderate Body Position Sidelying Comments significant hypertoncity noted at IT band today. Joint Mobilizations tibial IR Joint MWM with flexion Comments no discomfort PT-OP-R Modalities Start: 11/25/20 14:34 Freq: Status: Active Protocol: Document 02/11/21 14:38 (Rec: 02/11/21 16:11 [id number]) Hot Pack/Cold Pack Treatment Hot Pack Location low back, R hip Patient Position Hooklying Treatment Duration (minutes) 10 Patient Tolerance Good PT-OP-T Assessment and Plan Start: 11/25/20 14:34 Freq: Status: Active Protocol: Document 02/11/21 14:38 (Rec: 02/11/21 16:11 [id number]) Physical Therapy Assessment Goals Three Impairment Pt scores a 7 on the 30 sit to stand test Short Term Goal (STG) 01/07 goal met pt completed 11times STS from a 20 inches chair without pushing off with UEs. [facility] Goal (LTG) According to the CDC women 70- 79 who score <10 on the 30 second sit to stand test are at an increased risk of falls. Pt to score >9 on the 30 second sit to stand test to demonstrate decreased falls risk. LTG Duration Met Two Impairment Pt presents with signficant lower extremity weakness [employer] Goal (LTG) Pt to improve LE strength to at least 4/5 in all planes in order to enable her to get into her truck without putting increased stress on her shoulder LTG Duration 02/24/21 - 4-/5 left hip flexion One Impairment Pt does not have an appropriate HEP Impairment 01/07 goal met pt has been doing HEP for her shoulder and back. Short Term Goal (STG) Pt to be independent and compliant with an appropriate HEP STG Duration Met Assessment Summary Assessment pt stated her knee hurts a little more yesterday after she walked a lot. Gait assessment today noticed she has knee valgus moment during stance which creates excessive rotation torque on lateral aspect of her R knee. This session focused on knee alignment during WB activities . Physical Therapy Plan Frequency and Duration Frequency of Treatment 2x/Week Duration of Treatment 5 weeks Plan of Care Start Date 01/21/21 Plan of Care End Date 02/26/21 Therapeutic Interventions Therapeutic Interventions Balance Training,Gait Training ,Home Exercise Program,Manual Therapy,Patient/Caregiver Education,Self-Care/Home Management,Soft Tissue Mobilization,Therapeutic Activities,Therapeutic Exercises Modalities Cold Pack/Ice Massage,Electric Stimulation,Hot Packs, Ultrasound Next Visit Focus/Plan Next Note Type Treatment Note Next Visit Plan Strengthening, STM, pain- control modalities, gait training, increased activity tolerance
--- NOTE | 2021-02-15 12:19 | PT.OTN ---
Current Diagnoses Low back pain (02/15/21) Muscle weakness (generalized) (02/15/21) Chronic fatigue, unspecified (02/15/21) Physical Therapy Treatment Note PT-OP-A Visit Information Start: 11/25/20 14:34 Freq: Status: Active Protocol: Document 02/15/21 10:34 HH (Rec: 02/15/21 12:19 [id number]) Out-Patient Physical Therapy Visit Information Visit Information Visit Type Treatment Note Visit Start Time 10:30 Visit Stop Time 11:25 Total Visit Minutes 55 Visit Number 19 Number of FRONT OF HOUSE MANAGER Visits 0 PT-OP-B Current Condition Start: 11/25/20 14:34 Freq: Status: Active Protocol: Document 11/25/20 11:15 DCW (Rec: 11/25/20 14:57 DCW [id number]) Current Condition History of Current Condition Onset Date One month Current Complaints Low back pain, weakness, shoulder pain, fatigue, difficulty ambulating History of Current Condition Pt is a 80 year old female very well known to this clinic presenting with multitude complaints today, mostly stemming from a decline in function following a fall on . Pt apparently was walking into her dialysis clinic, became very fatigued, sat down on the curb to recover. Pt notes she went to get up, and then next she knew the paramedics were there. Pt had apparently had a syncopal episode, fell, had numerous scrapes and bruises along her left side, and had to have her left arm wrapped up to allow the skin to heal. Pt notes that she was not allowed to use her left arm, so her right arm has been doing everything over the last month, resulting in severe right shoulder pain. 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 Prior Treatments and Tests Long history of prior physical therapy for various complaints Treatment Goals Patient/Caregiver Goals Return to being able to go for regular walks PT-OP-C Subjective Start: 11/25/20 14:34 Freq: Status: Active Protocol: Document 02/15/21 10:34 HH (Rec: 02/15/21 12:19 [id number]) OP-PT Subjective Patient Comments Patient Comments My knee was doing very good since last session especially when I focused on aligning my knee and ankle in a straightline. But then my legs are just painful today. It feels like my myalgia acting up Patient Reported Progress Improving PT-OP-E Functional Tests Start: 11/25/20 14:34 Freq: Status: Active Protocol: Document 01/21/21 13:45 DCW (Rec: 01/21/21 14:11 DCW [id number]) Functional Tests 2 Minute Walk Test Distance 376' Device Used /c cane 30 Second Sit to Stand Test Score x10 PT-OP-F Manual Assessment Start: 11/25/20 14:34 Freq: Status: Active Protocol: Document 01/21/21 13:45 DCW (Rec: 01/21/21 14:11 DCW [id number]) Manual Assessments Soft Tissue Assessment Soft Tissue Mobility Assessment Mild tinghtness with tenderness to palpation 1/4: complaint of pain along bilateral T/L paraspinals, B QL PT-OP-L Special Tests Start: 11/25/20 14:34 Freq: Status: Active Protocol: Document 01/21/21 13:45 DCW (Rec: 01/21/21 14:11 DCW [id number]) Special Tests Lumbar Spine Special Tests Straight Leg Raise Test Results HS tightness at 75? L Slump Test Results Negative Manual Traction Test Results Improves symptoms Compression Test Results Negative PT-OP-M Strength Start: 11/25/20 14:34 Freq: Status: Active Protocol: Document 01/21/21 13:45 DCW (Rec: 01/21/21 14:11 DCW [id number]) Hip Strength Hip Manual Muscle Testing Right Flexion (L2) 4 Good Extension (S1) 4 Good Abduction 4 Good Adduction 4+ Good+ Left Flexion (L2) 3+ Fair+ Extension (S1) 4 Good Abduction 4 Good Adduction 4 Good Knee Strength Knee Manual Muscle Testing Right Flexion (S2) 4 Good Extension (L3) 4 Good Left Flexion (S2) 4 Good Extension (L3) 4+ Good+ Ankle/Foot Strength Ankle and Foot Manual Muscle Testing Right Dorsiflexion (L4) 4 Good Plantarflexion (S1) 4 Good Left Dorsiflexion (L4) 4 Good Plantarflexion (S1) 4 Good PT-OP-Q Treatments Start: 11/25/20 14:34 Freq: Status: Active Protocol: Document 02/15/21 10:34 HH (Rec: 02/15/21 12:19 [id number]) Therapeutic Exercises Supine Exercises piriformis stretch Side right Reps/Minutes 20 x 5 Comments for HEP Sitting Exercises seated hip ER Side bilateral Equipment Used yellow band Reps/Minutes 10 x2 Comments cues on neutral foot position Standing Exercises calf stretch Reps/Minutes 20s x5 Comments for HEP lunges for weight shift Standing Exercise Name gait training Side right Reps/Minutes 10 x2 Comments cues on hip ER and neutral foot alignment Manual Therapy Treatment Soft Tissue Mobilization R TFL Mobilization Type Myofascial Release,Sustained Pressure,Trigger Point Release Intensity/Depth Moderate Body Position Sidelying Comments hypertoncity noted at IT band and lateral quad today. PT-OP-R Modalities Start: 11/25/20 14:34 Freq: Status: Active Protocol: Document 02/15/21 10:34 HH (Rec: 02/15/21 12:19 [id number]) Hot Pack/Cold Pack Treatment Hot Pack Location low back, R hip Patient Position Hooklying Treatment Duration (minutes) 10 Patient Tolerance Good PT-OP-T Assessment and Plan Start: 11/25/20 14:34 Freq: Status: Active Protocol: Document 02/15/21 10:34 (Rec: 02/15/21 12:19 [id number]) Physical Therapy Assessment Goals Three Impairment Pt scores a 7 on the 30 sit to stand test Short Term Goal (STG) 01/07 goal met pt completed 11times STS from a 20 inches chair without pushing off with UEs. [facility] Goal (LTG) According to the CDC women 70- 79 who score <10 on the 30 second sit to stand test are at an increased risk of falls. Pt to score >9 on the 30 second sit to stand test to demonstrate decreased falls risk. LTG Duration Met Two Impairment Pt presents with signficant lower extremity weakness [facility] Goal (LTG) Pt to improve LE strength to at least 4/5 in all planes in order to enable her to get into her truck without putting increased stress on her shoulder LTG Duration 02/24/21 - 4-/5 left hip flexion One Impairment Pt does not have an appropriate HEP Impairment 01/07 goal met pt has been doing HEP for her shoulder and back. Short Term Goal (STG) Pt to be independent and compliant with an appropriate HEP STG Duration Met Assessment Summary Assessment pt reports of increased pain on BLE today for unknown reason who occasionally experienced this. This session focused more on gait training , hip ER primarily to improve her LE alignment during WB activities. Physical Therapy Plan Frequency and Duration Frequency of Treatment 2x/Week Duration of Treatment 5 weeks Plan of Care Start Date 01/21/21 Plan of Care End Date 02/26/21 Therapeutic Interventions Therapeutic Interventions Balance Training,Gait Training ,Home Exercise Program,Manual Therapy,Patient/Caregiver Education,Self-Care/Home Management,Soft Tissue Mobilization,Therapeutic Activities,Therapeutic Exercises Modalities Cold Pack/Ice Massage,Electric Stimulation,Hot Packs, Ultrasound Next Visit Focus/Plan Next Note Type Treatment Note Next Visit Plan Strengthening, STM, pain- control modalities, gait training, increased activity tolerance
--- NOTE | 2021-02-18 12:18 | PT.OTN ---
Current Diagnoses Low back pain (02/18/21) Muscle weakness (generalized) (02/18/21) Chronic fatigue, unspecified (02/18/21) Physical Therapy Treatment Note PT-OP-A Visit Information Start: 11/25/20 14:34 Freq: Status: Active Protocol: Document 02/18/21 10:30 AW (Rec: 02/18/21 10:34 AW [id number]) Out-Patient Physical Therapy Visit Information Visit Information Visit Type Treatment Note Visit Start Time 09:45 Visit Stop Time 10:45 Total Visit Minutes 60 PT-OP-B Current Condition Start: 11/25/20 14:34 Freq: Status: Active Protocol: Document 11/25/20 11:15 DCW (Rec: 11/25/20 14:57 DCW [id number]) Current Condition History of Current Condition Onset Date One month Current Complaints Low back pain, weakness, shoulder pain, fatigue, difficulty ambulating History of Current Condition Pt is a 80 year old female very well known to this clinic presenting with multitude complaints today, mostly stemming from a decline in function following a fall on . Pt apparently was walking into her dialysis clinic, became very fatigued, sat down on the curb to recover. Pt notes she went to get up, and then next she knew the paramedics were there. Pt had apparently had a syncopal episode, fell, had numerous scrapes and bruises along her left side, and had to have her left arm wrapped up to allow the skin to heal. Pt notes that she was not allowed to use her left arm, so her right arm has been doing everything over the last month, resulting in severe right shoulder pain. 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 Prior Treatments and Tests Long history of prior physical therapy for various complaints Treatment Goals Patient/Caregiver Goals Return to being able to go for regular walks PT-OP-C Subjective Start: 11/25/20 14:34 Freq: Status: Active Protocol: Document 02/18/21 10:30 AW (Rec: 02/18/21 10:34 AW [id number]) OP-PT Subjective Patient Comments Patient Comments My right knee isn't happy today. Pain kept me up last night. PT-OP-E Functional Tests Start: 11/25/20 14:34 Freq: Status: Active Protocol: Document 01/21/21 13:45 DCW (Rec: 01/21/21 14:11 DCW [id number]) Functional Tests 2 Minute Walk Test Distance 376' Device Used /c cane 30 Second Sit to Stand Test Score x10 PT-OP-F Manual Assessment Start: 11/25/20 14:34 Freq: Status: Active Protocol: Document 01/21/21 13:45 DCW (Rec: 01/21/21 14:11 DCW [id number]) Manual Assessments Soft Tissue Assessment Soft Tissue Mobility Assessment Mild tinghtness with tenderness to palpation 1/: complaint of pain along bilateral T/L paraspinals, B QL PT-OP-L Special Tests Start: 11/25/20 14:34 Freq: Status: Active Protocol: Document 01/21/21 13:45 DCW (Rec: 01/21/21 14:11 DCW [id number]) Special Tests Lumbar Spine Special Tests Straight Leg Raise Test Results HS tightness at 75? L Slump Test Results Negative Manual Traction Test Results Improves symptoms Compression Test Results Negative PT-OP-M Strength Start: 11/25/20 14:34 Freq: Status: Active Protocol: Document 01/21/21 13:45 DCW (Rec: 01/21/21 14:11 DCW [id number]) Hip Strength Hip Manual Muscle Testing Right Flexion (L2) 4 Good Extension (S1) 4 Good Abduction 4 Good Adduction 4+ Good+ Left Flexion (L2) 3+ Fair+ Extension (S1) 4 Good Abduction 4 Good Adduction 4 Good Knee Strength Knee Manual Muscle Testing Right Flexion (S2) 4 Good Extension (L3) 4 Good Left Flexion (S2) 4 Good Extension (L3) 4+ Good+ Ankle/Foot Strength Ankle and Foot Manual Muscle Testing Right Dorsiflexion (L4) 4 Good Plantarflexion (S1) 4 Good Left Dorsiflexion (L4) 4 Good Plantarflexion (S1) 4 Good PT-OP-Q Treatments Start: 11/25/20 14:34 Freq: Status: Active Protocol: Document 02/18/21 10:30 AW (Rec: 02/18/21 10:34 AW [id number]) Cardio Equipment Recumbent Stepper (Sci-Fit) Duration (Minutes) 8 Resistance 2 Seat Position 8 Therapeutic Exercises Supine Exercises piriformis stretch Side right Reps/Minutes 20 x 5 Comments HEP review Sitting Exercises seated hip ER Side bilateral Equipment Used yellow band Reps/Minutes 10 x2 Comments cued sit edge of chair, tall posture cymraes twist Sitting Exercise Name standing trunk rotation Equipment Used basketball Reps/Minutes 10x2 Comments more rotation to the right Manual Therapy Treatment Soft Tissue Mobilization R TFL Mobilization Type Myofascial Release,Sustained Pressure,Trigger Point Release Intensity/Depth Moderate Body Position Sidelying Comments hypertoncity noted at IT band and lateral quad today. PT-OP-R Modalities Start: 11/25/20 14:34 Freq: Status: Active Protocol: Document 02/18/21 10:30 AW (Rec: 02/18/21 10:34 AW [id number]) Hot Pack/Cold Pack Treatment Hot Pack Location low back, R hip Patient Position Hooklying Treatment Duration (minutes) 10 Patient Tolerance Good PT-OP-T Assessment and Plan Start: 11/25/20 14:34 Freq: Status: Active Protocol: Document 02/18/21 10:30 AW (Rec: 02/18/21 12:17 AW [id number]) Physical Therapy Assessment Goals Three Impairment Pt scores a 7 on the 30 sit to stand test Short Term Goal (STG) 01/07 goal met pt completed 11times STS from a 20 inches chair without pushing off with UEs. Correction Goal (LTG) According to the CDC women 70- 79 who score <10 on the 30 second sit to stand test are at an increased risk of falls. Pt to score >9 on the 30 second sit to stand test to demonstrate decreased falls risk. LTG Duration Met Two Impairment Pt presents with signficant lower extremity weakness Correction Goal (LTG) Pt to improve LE strength to at least 4/5 in all planes in order to enable her to get into her truck without putting increased stress on her shoulder LTG Duration 02/24/21 - 4-/5 left hip flexion One Impairment Pt does not have an appropriate HEP Impairment 01/07 goal met pt has been doing HEP for her shoulder and back. Short Term Goal (STG) Pt to be independent and compliant with an appropriate HEP STG Duration Met Assessment Summary Assessment Pt continues to endorse BLE pain which is keeping her up at night. Continued focus on hip ER strengthening for improved gait. Physical Therapy Plan Frequency and Duration Frequency of Treatment 2x/Week Duration of Treatment 5 weeks Plan of Care Start Date 01/21/21 Plan of Care End Date 02/26/21 Therapeutic Interventions Therapeutic Interventions Balance Training,Gait Training ,Home Exercise Program,Manual Therapy,Patient/Caregiver Education,Self-Care/Home Management,Soft Tissue Mobilization,Therapeutic Activities,Therapeutic Exercises Modalities Cold Pack/Ice Massage,Electric Stimulation,Hot Packs, Ultrasound Next Visit Focus/Plan Next Note Type Treatment Note Next Visit Plan Strengthening, STM, pain- control modalities, gait training, increased activity tolerance
--- NOTE | 2021-02-22 12:42 | PT.OTN ---
Current Diagnoses Low back pain (02/22/21) Muscle weakness (generalized) (02/22/21) Chronic fatigue, unspecified (02/22/21) Physical Therapy Treatment Note PT-OP-A Visit Information Start: 11/25/20 14:34 Freq: Status: Active Protocol: Document 02/22/21 12:00 DCW (Rec: 02/22/21 12:42 DCW [id number]) Out-Patient Physical Therapy Visit Information Visit Information Visit Type Treatment Note Visit Start Time 12:00 Visit Stop Time 12:50 Total Visit Minutes 50 Visit Number 21 Number of DIE MAKER ELECTRONIC Visits 0 Evaluation Information Evaluation Date 11/25/20 PT-OP-B Current Condition Start: 11/25/20 14:34 Freq: Status: Active Protocol: Document 11/25/20 11:15 DCW (Rec: 11/25/20 14:57 DCW [id number]) Current Condition History of Current Condition Onset Date One month Current Complaints Low back pain, weakness, shoulder pain, fatigue, difficulty ambulating History of Current Condition Pt is a 80 year old female very well known to this clinic presenting with multitude complaints today, mostly stemming from a decline in function following a fall on . Pt apparently was walking into her dialysis clinic, became very fatigued, sat down on the curb to recover. Pt notes she went to get up, and then next she knew the paramedics were there. Pt had apparently had a syncopal episode, fell, had numerous scrapes and bruises along her left side, and had to have her left arm wrapped up to allow the skin to heal. Pt notes that she was not allowed to use her left arm, so her right arm has been doing everything over the last month, resulting in severe right shoulder pain. 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 Prior Treatments and Tests Long history of prior physical therapy for various complaints Treatment Goals Patient/Caregiver Goals Return to being able to go for regular walks PT-OP-C Subjective Start: 11/25/20 14:34 Freq: Status: Active Protocol: Document 02/22/21 12:00 DCW (Rec: 02/22/21 12:42 DCW [id number]) OP-PT Subjective Patient Comments Patient Comments The knee is okay. Not great, but okay. PT-OP-E Functional Tests Start: 11/25/20 14:34 Freq: Status: Active Protocol: Document 01/21/21 13:45 DCW (Rec: 01/21/21 14:11 DCW [id number]) Functional Tests 2 Minute Walk Test Distance 376' Device Used /c cane 30 Second Sit to Stand Test Score x10 PT-OP-F Manual Assessment Start: 11/25/20 14:34 Freq: Status: Active Protocol: Document 01/21/21 13:45 DCW (Rec: 01/21/21 14:11 DCW [id number]) Manual Assessments Soft Tissue Assessment Soft Tissue Mobility Assessment Mild tinghtness with tenderness to palpation 1/4: complaint of pain along bilateral T/L paraspinals, B QL PT-OP-L Special Tests Start: 11/25/20 14:34 Freq: Status: Active Protocol: Document 01/21/21 13:45 DCW (Rec: 01/21/21 14:11 DCW [id number]) Special Tests Lumbar Spine Special Tests Straight Leg Raise Test Results HS tightness at 75? L Slump Test Results Negative Manual Traction Test Results Improves symptoms Compression Test Results Negative PT-OP-M Strength Start: 11/25/20 14:34 Freq: Status: Active Protocol: Document 01/21/21 13:45 DCW (Rec: 01/21/21 14:11 DCW [id number]) Hip Strength Hip Manual Muscle Testing Right Flexion (L2) 4 Good Extension (S1) 4 Good Abduction 4 Good Adduction 4+ Good+ Left Flexion (L2) 3+ Fair+ Extension (S1) 4 Good Abduction 4 Good Adduction 4 Good Knee Strength Knee Manual Muscle Testing Right Flexion (S2) 4 Good Extension (L3) 4 Good Left Flexion (S2) 4 Good Extension (L3) 4+ Good+ Ankle/Foot Strength Ankle and Foot Manual Muscle Testing Right Dorsiflexion (L4) 4 Good Plantarflexion (S1) 4 Good Left Dorsiflexion (L4) 4 Good Plantarflexion (S1) 4 Good PT-OP-Q Treatments Start: 11/25/20 14:34 Freq: Status: Active Protocol: Document 02/22/21 12:00 DCW (Rec: 02/22/21 12:42 DCW [id number]) Cardio Equipment Recumbent Stepper (Sci-Fit) Duration (Minutes) 8 Resistance 4 Seat Position 8 Gym Equipment Shuttle Recovery Unilateral Squats Resistance 50# Reps/Time x20 Bilateral Squats Resistance 87# Reps/Time x20 Therapeutic Exercises Supine Exercises piriformis stretch Side right Reps/Minutes 20 x 5 Comments HEP review Manual Therapy Treatment Soft Tissue Mobilization R TFL Mobilization Type Myofascial Release,Sustained Pressure,Trigger Point Release Intensity/Depth Moderate Body Position Sidelying Comments hypertoncity noted at IT band and lateral quad today. Piriformis Body Location L Piriformis Mobilization Type Strumming,Sustained Pressure Intensity/Depth Deep Body Position Sidelying L/S and glutes Body Location paraspinals Mobilization Type Sustained Pressure,Trigger Point Release Intensity/Depth Moderate Body Position Sidelying PT-OP-R Modalities Start: 11/25/20 14:34 Freq: Status: Active Protocol: Document 02/22/21 12:00 DCW (Rec: 02/22/21 12:42 DCW [id number]) Hot Pack/Cold Pack Treatment Hot Pack Location low back, R hip Patient Position Hooklying Treatment Duration (minutes) 10 Patient Tolerance Good PT-OP-T Assessment and Plan Start: 11/25/20 14:34 Freq: Status: Active Protocol: Document 02/22/21 12:00 DCW (Rec: 02/22/21 12:42 DCW [id number]) Physical Therapy Assessment Impairments Impairments Activity Tolerance,Functional Activities,Functional Mobility ,Gait,Pain,ROM,Soft Tissue Mobility,Strength Goals Three Impairment Pt scores a 7 on the 30 sit to stand test Short Term Goal (STG) 01/07 goal met pt completed 11times STS from a 20 inches chair without pushing off with UEs. Detention Goal (LTG) According to the CDC women 70- 79 who score <10 on the 30 second sit to stand test are at an increased risk of falls. Pt to score >9 on the 30 second sit to stand test to demonstrate decreased falls risk. LTG Duration Met Two Impairment Pt presents with signficant lower extremity weakness Examiner Rating Clerk Goal (LTG) Pt to improve LE strength to at least 4/5 in all planes in order to enable her to get into her truck without putting increased stress on her shoulder LTG Duration 02/24/21 - 4-/5 left hip flexion One Impairment Pt does not have an appropriate HEP Impairment 01/07 goal met pt has been doing HEP for her shoulder and back. Short Term Goal (STG) Pt to be independent and compliant with an appropriate HEP STG Duration Met Assessment Summary Assessment Pt very worried about upcoming discharge, does not think she will be properly motivated on her own to do any exercise and will experience functional decline. Attempted to remind pt that lack of independent motivation is not an appropriate excuse for continued therapy. Physical Therapy Plan Frequency and Duration Frequency of Treatment 2x/Week Duration of Treatment 5 weeks Plan of Care Start Date 01/21/21 Plan of Care End Date 02/26/21 Therapeutic Interventions Therapeutic Interventions Balance Training,Gait Training ,Home Exercise Program,Manual Therapy,Patient/Caregiver Education,Self-Care/Home Management,Soft Tissue Mobilization,Therapeutic Activities,Therapeutic Exercises Modalities Cold Pack/Ice Massage,Electric Stimulation,Hot Packs, Ultrasound Next Visit Focus/Plan Next Note Type Progress Note Next Visit Plan Strengthening, STM, pain- control modalities, gait training, increased activity tolerance
--- NOTE | 2021-03-04 16:45 | PT.OTN ---
Current Diagnoses Low back pain (03/04/21) Muscle weakness (generalized) (03/04/21) Chronic fatigue, unspecified (03/04/21) Physical Therapy Treatment Note PT-OP-A Visit Information Start: 11/25/20 14:34 Freq: Status: Active Protocol: Document 03/04/21 16:00 DCW (Rec: 03/04/21 16:45 DCW [id number]) Out-Patient Physical Therapy Visit Information Visit Information Visit Type Discharge Summary Visit Start Time 16:00 Visit Stop Time 16:50 Total Visit Minutes 50 Visit Number 22 Number of PRINCIPAL JAVA SOFTWARE ENGINEER Visits 0 Evaluation Information Evaluation Date 11/25/20 PT-OP-B Current Condition Start: 11/25/20 14:34 Freq: Status: Active Protocol: Document 11/25/20 11:15 DCW (Rec: 11/25/20 14:57 DCW [id number]) Current Condition History of Current Condition Onset Date One month Current Complaints Low back pain, weakness, shoulder pain, fatigue, difficulty ambulating History of Current Condition Pt is a 80 year old female very well known to this clinic presenting with multitude complaints today, mostly stemming from a decline in function following a fall on . Pt apparently was walking into her dialysis clinic, became very fatigued, sat down on the curb to recover. Pt notes she went to get up, and then next she knew the paramedics were there. Pt had apparently had a syncopal episode, fell, had numerous scrapes and bruises along her left side, and had to have her left arm wrapped up to allow the skin to heal. Pt notes that she was not allowed to use her left arm, so her right arm has been doing everything over the last month, resulting in severe right shoulder pain. 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 Prior Treatments and Tests Long history of prior physical therapy for various complaints Treatment Goals Patient/Caregiver Goals Return to being able to go for regular walks PT-OP-C Subjective Start: 11/25/20 14:34 Freq: Status: Active Protocol: Document 03/04/21 16:00 DCW (Rec: 03/04/21 16:45 DCW [id number]) OP-PT Subjective Patient Comments Patient Comments Having increased knee pain again today, but feels her walking and balance has improved. PT-OP-E Functional Tests Start: 11/25/20 14:34 Freq: Status: Active Protocol: Document 03/04/21 16:00 DCW (Rec: 03/04/21 16:17 DCW [id number]) Functional Tests 2 Minute Walk Test Distance 379' Device Used /s AD 30 Second Sit to Stand Test Score x10 PT-OP-F Manual Assessment Start: 11/25/20 14:34 Freq: Status: Active Protocol: Document 03/04/21 16:00 DCW (Rec: 03/04/21 16:17 DCW [id number]) Manual Assessments Soft Tissue Assessment Soft Tissue Mobility Assessment Mild tightness with tenderness to palpation 1/4: complaint of pain along bilateral T/L paraspinals, B QL PT-OP-L Special Tests Start: 11/25/20 14:34 Freq: Status: Active Protocol: Document 03/04/21 16:00 DCW (Rec: 03/04/21 16:17 DCW [id number]) Special Tests Lumbar Spine Special Tests Straight Leg Raise Test Results HS tightness at 75? L Slump Test Results Negative Manual Traction Test Results Improves symptoms Compression Test Results Negative PT-OP-M Strength Start: 11/25/20 14:34 Freq: Status: Active Protocol: Document 03/04/21 16:00 DCW (Rec: 03/04/21 16:17 DCW [id number]) Hip Strength Hip Manual Muscle Testing Right Flexion (L2) 4 Good Extension (S1) 4 Good Abduction 4 Good Adduction 4+ Good+ Left Flexion (L2) 4 Good Extension (S1) 4 Good Abduction 4 Good Adduction 4 Good Knee Strength Knee Manual Muscle Testing Right Flexion (S2) 4 Good Extension (L3) 4 Good Left Flexion (S2) 4 Good Extension (L3) 4+ Good+ Ankle/Foot Strength Ankle and Foot Manual Muscle Testing Right Dorsiflexion (L4) 4 Good Plantarflexion (S1) 4 Good Left Dorsiflexion (L4) 4 Good Plantarflexion (S1) 4 Good PT-OP-Q Treatments Start: 11/25/20 14:34 Freq: Status: Active Protocol: Document 03/04/21 16:00 DCW (Rec: 03/04/21 16:45 DCW [id number]) Cardio Equipment Recumbent Stepper (Sci-Fit) Duration (Minutes) 5 Resistance 4 Seat Position 11 Gym Equipment Shuttle Recovery Unilateral Squats Resistance 50# Reps/Time x20 Bilateral Squats Resistance 87# Reps/Time x20 Manual Therapy Treatment Soft Tissue Mobilization R TFL Mobilization Type Myofascial Release,Sustained Pressure,Trigger Point Release Intensity/Depth Moderate Body Position Sidelying Comments hypertoncity noted at IT band and lateral quad today. Piriformis Body Location L Piriformis Mobilization Type Strumming,Sustained Pressure Intensity/Depth Deep Body Position Sidelying L/S and glutes Body Location paraspinals Mobilization Type Sustained Pressure,Trigger Point Release Intensity/Depth Moderate Body Position Sidelying Neuro Re-Education Treatment Other Activities 1 Details 2 MWT, 30 sec StS, MMT PT-OP-R Modalities Start: 11/25/20 14:34 Freq: Status: Active Protocol: Document 03/04/21 16:00 DCW (Rec: 03/04/21 16:45 DCW [id number]) Hot Pack/Cold Pack Treatment Hot Pack Location low back, R hip Patient Position Hooklying Treatment Duration (minutes) 10 Patient Tolerance Good PT-OP-T Assessment and Plan Start: 11/25/20 14:34 Freq: Status: Active Protocol: Document 03/04/21 16:00 DCW (Rec: 03/04/21 16:45 DCW [id number]) Physical Therapy Assessment Impairments Impairments Activity Tolerance,Functional Activities,Functional Mobility ,Gait,Pain,ROM,Soft Tissue Mobility,Strength Goals Three Impairment Pt scores a 7 on the 30 sit to stand test Short Term Goal (STG) 01/07 goal met pt completed 11times STS from a 20 inches chair without pushing off with UEs. Garment Parts Cutter Hand Goal (LTG) According to the CDC women 70- 79 who score <10 on the 30 second sit to stand test are at an increased risk of falls. Pt to score >9 on the 30 second sit to stand test to demonstrate decreased falls risk. LTG Duration Met Two Impairment Pt presents with signficant lower extremity weakness Garment Parts Cutter Hand Goal (LTG) Pt to improve LE strength to at least 4/5 in all planes in order to enable her to get into her truck without putting increased stress on her shoulder LTG Duration Met One Impairment Pt does not have an appropriate HEP Impairment 01/07 goal met pt has been doing HEP for her shoulder and back. Short Term Goal (STG) Pt to be independent and compliant with an appropriate HEP STG Duration Met Progress Towards Goals Progress Towards Goals Goals Met Assessment Summary Assessment Pt doing very well at the moment, agreeable to discharge . Pt understands that she does have the option to return in the future if she needs more therapy. Physical Therapy Plan Frequency and Duration Frequency of Treatment 1x/Week Duration of Treatment 1 day Plan of Care Start Date 03/04/21 Plan of Care End Date 03/05/21 Therapeutic Interventions Therapeutic Interventions Balance Training,Gait Training ,Home Exercise Program,Manual Therapy,Patient/Caregiver Education,Self-Care/Home Management,Soft Tissue Mobilization,Therapeutic Activities,Therapeutic Exercises Modalities Cold Pack/Ice Massage,Electric Stimulation,Hot Packs, Ultrasound Discharge Physical Therapy Discharge Reasons Goals Met Next Visit Focus/Plan Next Note Type Discharge Summary
--- NOTE | 2021-03-04 16:46 | PT.OPPOC ---
Physical, Occupational & Speech Therapy At [facility] Current Diagnoses Low back pain (03/04/21) Muscle weakness (generalized) (03/04/21) Chronic fatigue, unspecified (03/04/21) Visit Care Team Role Provider Type Jorge L Dietz MD Attending Provider Physician Family Provider Primary Care Provider Referring Provider Specialty: Family Practice Address: [address] [place] [address] [place], [place], [facility] Email: [email or web address] Plan Of Care PT-OP-T Assessment and Plan Start: 11/25/20 14:34 Freq: Status: Active Protocol: Document 03/04/21 16:00 DCW (Rec: 03/04/21 16:45 DCW [id number]) Physical Therapy Assessment Impairments Impairments Activity Tolerance,Functional Activities,Functional Mobility ,Gait,Pain,ROM,Soft Tissue Mobility,Strength Goals Three Impairment Pt scores a 7 on the 30 sit to stand test Short Term Goal (STG) 01/07 goal met pt completed 11times STS from a 20 inches chair without pushing off with UEs. Skilled Nursing Goal (LTG) According to the CDC women 70- 79 who score <10 on the 30 second sit to stand test are at an increased risk of falls. Pt to score >9 on the 30 second sit to stand test to demonstrate decreased falls risk. LTG Duration Met Two Impairment Pt presents with signficant lower extremity weakness Skilled Nursing Goal (LTG) Pt to improve LE strength to at least 4/5 in all planes in order to enable her to get into her truck without putting increased stress on her shoulder LTG Duration Met One Impairment Pt does not have an appropriate HEP Impairment 10 goal met pt has been doing HEP for her shoulder and back. Short Term Goal (STG) Pt to be independent and compliant with an appropriate HEP STG Duration Met Progress Towards Goals Progress Towards Goals Goals Met Assessment Summary Assessment Pt doing very well at the moment, agreeable to discharge . Pt understands that she does have the option to return in the future if she needs more therapy. Physical Therapy Plan Frequency and Duration Frequency of Treatment 1x/Week Duration of Treatment 1 day Plan of Care Start Date 03/04/21 Plan of Care End Date 03/05/21 Therapeutic Interventions Therapeutic Interventions Balance Training,Gait Training ,Home Exercise Program,Manual Therapy,Patient/Caregiver Education,Self-Care/Home Management,Soft Tissue Mobilization,Therapeutic Activities,Therapeutic Exercises Modalities Cold Pack/Ice Massage,Electric Stimulation,Hot Packs, Ultrasound Discharge Physical Therapy Discharge Reasons Goals Met Next Visit Focus/Plan Next Note Type Discharge Summary Plan of Care Dates Plan of Care Start Date 03/04/21 Plan of Care End Date 03/05/21 Electronically Signed by: Geremias Adam, PT 03/04/21 [id number] Please Sign and Return: I have reviewed this Plan of Care and certify that the skilled therapy services above are required to meet the patient?s needs. Physician Signature Date Printed Name and Credentials Clinical Instructor Signature Printed Name and Credentials
== END 2021-04-13 08:40 ==
LOC: PHYS 16:00
PROVIDERS: Family Provider Family Medicine; PCP Family Medicine; Referring Provider Family Medicine; Visit Provider Family Medicine
DX: R53.82 Chronic fatigue, unspecified; M62.81 Muscle weakness (generalized)
CPT/HCPCS: 97110; 97112; 97116; 97140; 97162; 97530

== ENCOUNTER → 2021-04-13 14:11 | Outpatient (CLI) | payer MEDICARE, OTHER, SELFPAY ==
--- NOTE | 2021-04-13 14:15 | DI.RAD.S_ITS ---
PROCEDURE: XR HIP LT 1V INDICATIONS: HIP PAIN TECHNIQUE: 2 views of the hip were acquired. COMPARISON: None. FINDINGS: Bones: No fractures or dislocations. Moderate left hip joint osteoarthritic changes are seen. No evidence of avascular necrosis of femoral head. No suspicious bony lesions. The visualized pelvic ring appears intact. Degenerative disc disease in visualized lower lumbar spine is seen. Soft tissues: No suspicious soft tissue calcifications or masses. IMPRESSION: Moderate left hip joint osteoarthritis. No hip fracture or dislocation. No evidence of avascular necrosis. Dictated by: Julian Magallanes M.D. on 04/13/2021 at 15:29 Approved by: Julian Magallanes M.D. on 04/13/2021 at 15:29
--- NOTE | 2021-04-13 14:20 | DI.RAD.S_ITS ---
PROCEDURE: XR LUMBAR SPINE 1V INDICATIONS: LEFT HIP TECHNIQUE: 3 views of the lumbar spine were acquired. FINDINGS: There are 5 [id number] lumbar type vertebral bodies. Anterolisthesis of L4 on L5 measuring approximately 6 mm without pars defect, unchanged from CT exam 01/05/2021. Otherwise normal alignment. Vertebral body heights maintained. Disc height loss at every level in the lumbar spine with associated degenerative endplate change. Extensive facet osteoarthropathy. Degenerative findings worst from L3-L4 through L5-S1 where there is probable moderate to severe neural foraminal stenosis. IMPRESSION: Moderate to severe degenerative changes in the lower lumbar spine with anterolisthesis of L4 on L5. Findings are similar to CT and MRI examinations performed in December 2020. COMPARISON: None. Dictated by: Espinoza Westbrook M.D. on 04/13/2021 at 15:07 Approved by: Espinoza Westbrook M.D. on 04/13/2021 at 15:08
== END ==
LOC: LAB 14:13 → RAD 14:13
PROVIDERS: Family Provider Family Medicine; PCP Family Medicine; Referring Provider Family Medicine; Visit Provider Family Medicine
DX: M47.816 Spondylosis without myelopathy or radiculopathy, lumbar region (principal); M16.12 Unilateral primary osteoarthritis, left hip; M54.42 Lumbago with sciatica, left side; M43.16 Spondylolisthesis, lumbar region; M25.552 Pain in left hip
CPT/HCPCS: 72020; 73501

== ENCOUNTER → 2021-04-20 12:00 | Outpatient (CLI) | payer MEDICARE, OTHER, SELFPAY ==
--- NOTE | 2021-04-20 | DI.MRI.S_ITS ---
PROCEDURE: MR LUMBAR SPINE WO CON INDICATIONS: 80-year-old female with low back pain and left-sided radiculopathy TECHNIQUE: Noncontrast sagittal T1 spin echo and T2 fast echo, sagittal STIR, axial T1 and T2 fast spin echo through the lumbar spine. In cases with scoliosis, additional coronal T2 fast spin echo may be performed. COMPARISON: [facility], MR, MR LUMBAR SPINE WO CON, 12/31/2020, 16:13. FINDINGS: Image quality: Excellent. Alignment and Curvature: Degenerative grade 1 anterior spondylolisthesis noted L4-5 stable from the prior exam Bone Marrow: Multilevel degenerative endplate changes including Modic type 1 edematous changes at L2-3 Spinal Cord: Conus medullaris terminates at the L1 level. Visualized cord demonstrates normal signal and size. Paraspinous Soft Tissues: No paravertebral masses. T12-L1: Normal appearance. L1-L2: Mild disc height loss with circumferential disc bulge and hypertrophic facet joints results in mild central stenosis. No foraminal stenosis. L2-L3: Mild disc height loss and circumferential disc bulge combines with hypertrophic facet joints and ligamentum flavum laxity to result in moderate central stenosis, similar to the prior exam. Moderate bilateral foraminal stenosis present. L3-L4: Disc height loss and circumferential disc bulge with hypertrophic facet joints and ligamentum flavum laxity results in severe central stenosis. Severe bilateral foraminal stenosis is greater on the left. L4-L5: Disc space narrowing with circumferential disc bulge combined with hypertrophic facet joints result in severe central as well as moderate bilateral foraminal stenosis. L5-S1: Disc space narrowing and circumferential disc bulge with hypertrophic facet joints noted. No central stenosis. Moderate right and severe left foraminal stenosis. IMPRESSION: 1. Multilevel degenerative disc disease and arthropathy results in varying degrees of central and foraminal stenosis including severe L3-4 central bilateral foraminal stenosis, similar to the prior exam Approved by: Jovan Holcomb M.D. on 04/20/2021 at 13:03
--- NOTE | 2021-04-20 | DI.MRI.S_ITS ---
PROCEDURE: MR HIP LT WO CON INDICATIONS: Lumbago with sciatica, left side TECHNIQUE: Noncontrast coronal T1 spin echo and STIR through the bony pelvis. Coronal and axial T2 fast spin echo with fat saturation, sagittal T1 spin echo, and oblique axial T2 fast spin echo with fat saturation through the hip. COMPARISON: None. FINDINGS: Image quality: Excellent. Bones and joints: Bone marrow of the pelvic ring and proximal femurs show normal signal throughout. No intraosseous lesions or fractures. No avascular necrosis of the femoral heads. Tendons and ligaments: The gluteus medius and minimus tendons appear intact, without associated muscle atrophy. The nearby proximal iliotibial band also appears intact. T2 hyperintense signal is seen within the iliopsoas musculotendinous junction, compatible with strain/partial tear. The origin of the hamstring tendon is intact but demonstrates striated T2 hyperintense signal at the ischial tuberosity. The straight and reflected heads of the rectus femoris muscle origin appear intact, as well as the conjoint tendon. The ligamentum teres appears intact where visualized. Labrum and cartilage: The acetabular labrum appears intact in the absence of intra-articular contrast. Cartilage surface of the femoral head appears of normal thickness. Soft tissues: The remaining muscles demonstrate normal bulk and internal signal. The proximal sciatic neurovascular bundle appears normal adjacent to the hamstring tendons. No free pelvic fluid. The urinary bladder is not well distended. Sigmoid diverticulosis. 7.5 mm T2 hypointense lesion in the right aspect of the uterus, which may reflect a small fibroid IMPRESSION: 1. Edema at the musculotendinous junction of the iliopsoas, compatible with strain/partial tear. 2. 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 Dictated by: Clyde Woo M.D. on 04/20/2021 at 13:38 Approved by: Clyde Woo M.D. on 04/20/2021 at 13:47
== END ==
PROVIDERS: Family Provider Family Medicine; PCP Family Medicine; Referring Provider Family Medicine; Visit Provider Family Medicine
DX: M51.16 Intervertebral disc disorders with radiculopathy, lumbar region (principal); M47.26 Other spondylosis with radiculopathy, lumbar region; M67.952 Unspecified disorder of synovium and tendon, left thigh; K57.30 Diverticulosis of large intestine without perforation or abscess without bleeding
CPT/HCPCS: 72148; 73721

== ENCOUNTER → 2021-06-29 15:02 | Outpatient (ROUT) | payer MEDICARE, OTHER, SELFPAY ==
[2021-06-29 15:14] LABS: INR 2.9 (0.9-1.3); Prothrombin Time 33.3 SECONDS (10.1-12.7)
== END ==
PROVIDERS: Family Provider Family Medicine; PCP Family Medicine; Visit Provider Family Medicine
DX: I48.91 Unspecified atrial fibrillation (principal); Z79.01 Long term (current) use of anticoagulants
CPT/HCPCS: 85610

== ENCOUNTER → 2021-07-12 13:41 | Outpatient (CLI) | payer MEDICARE, OTHER, SELFPAY ==
[2021-07-12 15:17] LABS: COVID19 -Nasal RAPID Negative (Negative)
== END ==
PROVIDERS: Family Provider Family Medicine; PCP Family Medicine; Visit Provider Physical Medicine & Rehabilitation
DX: Z20.822 Contact with and (suspected) exposure to COVID-19 (principal)
CPT/HCPCS: 87635; C9803

== ENCOUNTER → 2021-07-14 12:28 | Outpatient (ROUT) | payer MEDICARE, OTHER, SELFPAY ==
[2021-07-14 12:34] LABS: INR 1.4 (0.9-1.3)
== END ==
PROVIDERS: Family Provider Family Medicine; PCP Family Medicine; Visit Provider Family Medicine
DX: I48.91 Unspecified atrial fibrillation (principal); Z79.01 Long term (current) use of anticoagulants
CPT/HCPCS: 85610

== ENCOUNTER 2021-07-15 13:37 | Outpatient (CLI) | payer MEDICARE, OTHER, SELFPAY ==
[2021-07-15] VITALS (8 sets, daily range): BP systolic 140–179; BP diastolic 60–78; PULSE 56–66; RESP 13–22; TEMP 37; O2SAT 96–100
--- NOTE | 2021-07-15 | DI.RAD.S_ITS ---
PROCEDURE: PAIN L/S TRANSFORAMINAL INJECT INDICATIONS: Other intervertebral disc displacement, lumbar region COMPARISON: , , PAIN L/S TRANSFORAMINAL INJECT, 02/19/2019, 13:25. FINDINGS: Fluoroscopic spot filming was performed to verify placement of spinal needles on both sides at the L3-L4 levels, as labeled on the films. Appropriate location of the needle tips was confirmed by injection of iodinated contrast. IMPRESSION: Intraprocedural examination demonstrating appropriate positions of the needles. Dictated by: Sergio Cuba M.D. on 07/15/2021 at 14:22 Approved by: Sergio Cuba M.D. on 07/15/2021 at 14:22
[2021-07-15] MEDS: MIDAZOLAM 2 MG/2 ML VIAL IV (14:40)
[2021-07-15] MEDS: BETAMETHASONE 30 MG/5 ML MDV 12 MG INJ (14:46)
[2021-07-15] MEDS: BUPIVACAINE 0.25% (PF) VIAL 2 ML INJ (14:46)
[2021-07-15] MEDS: IOPAMIDOL 15 ML VIAL 3 ML INJ (14:46)
[2021-07-15] MEDS: DEXAMETHASONE 10 MG/ML VIAL 20 MG INJ (14:47)
--- NOTE | 2021-07-15 15:00 | PM.PROC.IR.1 ---
Date/Time/Diagnoses Date of procedure: 07/15/21 Time of procedure: 15:00 Pre-procedure diagnosis: 1. FORAMINAL STENOSIS WITH LE SYMPTOMS Post-procedure diagnosis: same Procedure Notes Procedure: 1. FLUOROSCOPICALLY GUIDED CONTRAST CONTROLLED TRANSFORAMINAL EPIDURAL STEROID INJECTION - BILATERAL L3/4 TFESI Indications: Clementina is referred by Dr. Dumont for treatment of Foraminal Stenosis with bilateral LE Symptoms Physician: Jorge L Wilburn Total Fluoroscopy time (seconds): 14 Total sedation minutes: 13 Complications: none Procedure in detail & Post-procedure care: FINDINGS Foraminal Nerve Root Compression secondary to disc disease and facet hypertrophy DESCRIPTION OF PROCEDURE Following review of allergy and review of potential side effects and complications, including, but not necessarily limited to, infection, allergic reaction, local tissue breakdown, stroke, temporary or permanent nerve injury, paralysis, and possible , the patient indicated that the patient understood and agreed to proceed. An informed consent document was signed by the patient, witnessed by a nurse, and placed in the patient's chart. Additionally, other treatment options including medications, modalities, and physical therapy were reviewed with the patient. After review of previous anaesthesic history and IV conscious sedation the patient was deemed safe to proceed with today?s procedure with IV conscious sedation as ASA class II designation. Safety time-out was performed to confirm patient ID, procedure to be performed and site of procedure. IV sedation was accomplished with a combination of 2mg of Versed was administered by the RN after DO order, titrated to patient comfort during the course of the procedure while the patient remained responsive to all verbal commands In the prone position following sterile prep and drape of the lumbar region, the right L3/4 posterior neuroforamen was identified fluoroscopically. The skin was anesthetized via a 25-gauge 1.5-inch needle with 1% lidocaine solution. At this point, a 25-gauge 3.5-inch spinal needle was atraumatically introduced and advanced under fluoroscopic guidance through the posterior right L3/4 neuroforamen to approximately the anterior aspect of the canal. Depth was confirmed on lateral view. Following negative aspiration, injection of approximately 1.5cc of Isovue 200 under live fluoroscopy in the AP view confirmed excellent flow along the nerve root, into the epidural space without vascular or intrathecal uptake observed Radiological data, including multiple fluoroscopic views of the lumbosacral spine, reveal a spinal needle at the right L3/4 posterior neuroforamen. Subsequent views show flow of contrast material flowing superiorly and inferiorly along the nerve root confirming epidural flow. Subsequently, a test dose of 1.5cc of 1% lidocaine solution was administered and patient was observed for two minutes for signs or symptoms of complications, including abdominal pain, shortness of breath, bilateral upper or lower extremity weakness, nausea and vomiting, prior to steroid injection. At this point, a total of 3cc or 20mg of dexamethasone and 6mg betamethasone was injected without incident. Attention was then refocused to the left L3/4 level where the identical procedure was replicated. The procedure tolerated the procedure well without signs or symptoms of complications prior to transfer to the recovery area continued monitoring without incident. The patient was then transferred to the recovery area where they were observed for an appropriate time after the injection. The patient reported a VAS score of 7 prior to the procedure and a post-procedure VAS of 0. POST OP INSTRUCTIONS The patient was provided a Pain Log to continue to record their response to the target-specific procedure prior to follow-up visit with their referring physician. Additionally, specific post-injection care instructions and a contact number to our office were provided if concerns arise regarding possible complications associated with the procedure are suspected.
== END 2021-07-15 15:16 | disposition home or self-care (01) ==
LOC: RAD 13:38
PROVIDERS: Family Provider Family Medicine; PCP Family Medicine; Referring Provider Physical Medicine & Rehabilitation; Visit Provider Physical Medicine & Rehabilitation
DX: M48.061 Spinal stenosis, lumbar region without neurogenic claudication (principal); M51.16 Intervertebral disc disorders with radiculopathy, lumbar region
CPT/HCPCS: 64483; 99152; J0702; J1100; J2250

== ENCOUNTER → 2021-07-29 15:22 | Outpatient (ROUT) | payer MEDICARE, OTHER, SELFPAY ==
[2021-07-29 16:04] LABS: INR 2.6 (0.9-1.3); Prothrombin Time 29.8 SECONDS (10.1-12.7)
== END ==
PROVIDERS: Family Provider Family Medicine; PCP Family Medicine; Visit Provider Family Medicine
DX: I48.91 Unspecified atrial fibrillation (principal); Z79.01 Long term (current) use of anticoagulants
CPT/HCPCS: 85610

== ENCOUNTER 2021-08-14 15:02 | Emergency (ER) | payer MEDICARE, OTHER, SELFPAY ==
[2021-08-14] VITALS (13 sets, daily range): BP systolic 91–145; BP diastolic 59–98; PULSE 76–140; RESP 11–25; TEMP 36.8; O2SAT 96–99; BMI 29.8
--- NOTE | 2021-08-14 15:30 | DI.RAD.S_ITS ---
PROCEDURE: XR CHEST 1V INDICATIONS: chest pain TECHNIQUE: One view of the chest was acquired. COMPARISON: [facility], CR, XR CHEST 2V, 03/19/2020, 15:21. FINDINGS: Surgical changes and devices: Postsurgical changes of prior cholecystectomy. Overlying EKG wires. Lungs and pleura: Left basilar opacity. No pleural effusions or pneumothorax. Mediastinum: Mediastinal contours appear normal. Heart size is normal. Vascular calcifications within the aorta. Bones and chest wall: No suspicious bony lesions. Overlying soft tissues appear unremarkable. IMPRESSION: Left basilar opacity concerning for pneumonia in the correct clinical setting. Dictated by: Ezra Gutierrez D.O. on 08/14/2021 at 15:00 Approved by: Ezra Gutierrez D.O. on 08/14/2021 at 15:01
[2021-08-14 15:59] LABS: COVID19 -Nasal RAPID POSITIVE (Negative)
--- NOTE | 2021-08-14 16:06 | ED_ITS ---
HPI - Arrhythmia/Palpitations <MIRACLE Adame - Last Filed: 08/14/21 20:04> General Chief Complaint: Arrhythmia/Palpitations Stated Complaint: sick 4 days Cough/diarrhea pos covid Time Seen by Provider: 08/14/21 15:44 Source: patient Mode of arrival: Ambulatory History of Present Illness HPI narrative: This is an 81-year-old female with history CKD stage 4 on Monday and Monday dialysis, history of atrial fibrillation on warfarin, and presents to the emergency department with concern for COVID infection. Patient states that she has had four days fatigue, runny nose, chills, states that she now has a sore throat and muscle aches. She was exposed approximately one week ago. She states that she is vaccinated x2, has felt palpitations this week and was concerned that she was back in atrial fibrillation. She states that she skipped dialysis run because she did not feel well. She had dialysis today and states it went as expected without any complications. Patient states that she has seen Dr. Williamson in the past and her primary care provider is Dr. Dietz. She denies any chest pain, endorses shortness of breath and shortness of breath with exertion, denies any difficulty breathing states that she has had decreased appetite, she is drinking, denies any diarrhea. Patient denies any nausea vomiting, states that she feels crummy but otherwise is doing all right, denies any pain anywhere. Related Data Home Medications Medication Instructions Recorded Confirmed dorzolamide 22.3 mg-timolol 6.8 1 drop EYE-BOTH BID ml 10/12/17 08/14/21 mg/mL eye drops biotin 2,500 mcg capsule 5 mg PO DAILY cap 03/04/19 08/14/21 carvedilol 6.25 mg tablet (Coreg) 25 mg PO BID #60 tab 03/04/19 08/14/21 allopurinol 100 mg tablet 300 mg PO DAILY tab 09/25/19 08/14/21 furosemide 20 mg tablet 20 mg PO QDAY PRN #30 tab 09/25/19 08/14/21 losartan 100 mg tablet 100 mg PO DAILY tab 12/16/20 08/14/21 warfarin 5 mg tablet 5 mg PO DAILY 12/16/20 08/14/21 brimonidine 0.1 % eye drops 1 drp EYE-BOTH BID ml 06/14/21 08/14/21 (Alphagan P) levothyroxine 25 mcg tablet 50 mcg PO DAILY tab 06/14/21 08/14/21 melatonin 5 mg capsule 3 mg PO PRN PRN cap 06/14/21 08/14/21 prednisone 5 mg tablet 10 mg PO DAILY tab 06/14/21 08/14/21 [id number]-[id number] tablet 1 tab PO DAILY 08/14/21 08/14/21 penicillin V potassium 500 mg 1,000 mg PO BID 08/14/21 08/14/21 tablet Previous Rx's Medication Instructions Recorded fluticasone propionate 50 1 spray INTRANASAL BID PRN #16 g 08/14/21 mcg/actuation nasal spray,suspension guaifenesin 400 mg tablet 400 mg PO TID PRN #20 tab 08/14/21 Allergies Allergy/AdvReac Type Severity Reaction Status Date / Time codeine [CODEINE] Allergy Severe ANAPHYLACTI Verified 12/16/20 10:09 C peanut [PEANUT] Allergy Severe ANAPHYLACTI Verified 12/16/20 10:09 C propofol AdvReac hallucinations, Verified 12/16/20 10:09 confusion Review of Systems <MIRACLE Adame - Last Filed: 08/14/21 20:04> Review of Systems Narrative: General: denies fever, chills Head/Neck: Endorses mild headache, denies neck pain Eyes: denies visual changes, eye pain Cardio: denies chest pain, palpitations Respiratory: endorses shortness of breath especially with exertion, mild cough and sore throat GI: denies abdominal pain, nausea, vomiting, or diarrhea : denies dysuria, hematuria or flank pain MSK: denies new joint pain, muscle weakness or swelling, endorses muscle aches and generalized fatigue, denies any sensation changes Skin: denies rash, itching or wound Neuro: denies numbness, tingling, dizziness Patient History <MIRACLE Adame - Last Filed: 08/14/21 20:04> Medical History (Updated 08/14/21 @ 17:34 by MIRACLE Adame) Atrial fibrillation Chronic anticoagulation Foraminal stenosis of lumbar region Gastroesophageal reflux disease Gout Hypertension Surgical History H/O tubal ligation History of cardiac radiofrequency ablation Hx of cholecystectomy Hx of tonsillectomy Family History Mother Lung cancer Social History Smoking Status: Never smoker Smoking Status: Never smoker Substance Use Type: does not use Exam <MIRACLE Adame - Last Filed: 08/14/21 20:04> Narrative Exam Narrative: Independently reviewed vitals signs and nursing notes. General: Awake, alert, nontoxic, no cardiorespiratory distress, states that she feels fatigued and winded Head/Neck: Atraumatic, neck supple Eyes: EOMI, conjunctiva normal Nose: nares patent, no rhinorrhea Mouth/Throat: moist mucus membranes, posterior pharynx without erythema or lesion Cardio: Irregular rate and tachycardic rhythm, atrial fibrillation with occasional PVCs on the monitor, no peripheral edema, warm extremities Respiratory: respirations tachypneic without wheezing, stridor, or rales. No retractions, hypoxia, patient with mild shortness of breath with sentences, without hypoxia, she is satting 98% on room air, no abnormal breath sounds, no retractions. GI: Abdomen soft, nontender to palpation x4 quadrants, no guarding or rebound tenderness MSK: Moves all extremities, neurovascularly intact, range of motion without deficit Skin: Normal capillary refill, no rash Neuro: Normal speech and cognition, normal gait Initial Vital Signs Initial Vital Signs: Vital Signs Temperature 98.3 F 08/14/21 15:10 Pulse Rate 124 H 08/14/21 15:10 Respiratory Rate 18 08/14/21 15:10 Blood Pressure 94/84 08/14/21 15:10 Pulse Oximetry 98 08/14/21 15:10 <Jose Kinney DO - Last Filed: 08/15/21 07:08> Initial Vital Signs Initial Vital Signs: Vital Signs Temperature 98.3 F 08/14/21 15:10 Pulse Rate 124 H 08/14/21 15:10 Respiratory Rate 18 08/14/21 15:10 Blood Pressure 94/84 08/14/21 15:10 Pulse Oximetry 98 08/14/21 15:10 Course <MIRACLE Adame - Last Filed: 08/14/21 20:04> Course Course Narrative: No change in heart rate after 25 mg of p.o. metoprolol was given, gave patient 10 mg of IV diltiazem and immediately patient's heart rate came down to the 90s to low 100s. Watch patient for approximately 30 minutes and her heart rate did not go above 100, she did not have any mental status changes, endorse being hungry, was talkative, in denied any palpitations or any other symptom. Orders Ordered: Discontinued Medications Diltiazem HCl (Diltiazem 5 Mg/Ml Sdv) 10 mg IV NOW ONE Stop: 08/14/21 17:27 Last Admin: 08/14/21 17:35 Dose: 10 mg Documented by: CAILIN Metoprolol Tartrate (Metoprolol Ir 25 Mg Tablet) 25 mg PO NOW ONE Stop: 08/14/21 16:22 Last Admin: 08/14/21 16:46 Dose: 25 mg Documented by: CAILIN Vital Signs Vital signs: Vital Signs - 8 hr 08/14/21 15:10 08/14/21 15:50 08/14/21 15:51 Temperature 98.3 F Pulse Rate 124 H 140 H 131 H Respiratory Rate 18 17 17 Blood Pressure 94/84 91/63 Pulse Oximetry 98 97 97 08/14/21 15:52 08/14/21 16:00 08/14/21 16:30 Temperature Pulse Rate 136 H 131 H 135 H Respiratory Rate 11 L 25 H 22 Blood Pressure 140/61 127/76 Pulse Oximetry 97 97 98 08/14/21 17:00 08/14/21 17:10 08/14/21 17:30 Temperature Pulse Rate 136 H 131 H 121 H Respiratory Rate 22 15 13 Blood Pressure 135/98 H 145/69 H Pulse Oximetry 97 97 96 08/14/21 17:35 08/14/21 17:44 08/14/21 18:00 Temperature Pulse Rate 118 H 76 84 Respiratory Rate 19 24 Blood Pressure 145/69 H 112/59 L Pulse Oximetry 96 99 08/14/21 18:05 Temperature Pulse Rate 81 Respiratory Rate 18 Blood Pressure 145/63 H Pulse Oximetry 96 <Jose Kinney DO - Last Filed: 08/15/21 07:08> Orders Ordered: Discontinued Medications Diltiazem HCl (Diltiazem 5 Mg/Ml Sdv) 10 mg IV NOW ONE Stop: 08/14/21 17:27 Last Admin: 08/14/21 17:35 Dose: 10 mg Documented by: CAILIN Metoprolol Tartrate (Metoprolol Ir 25 Mg Tablet) 25 mg PO NOW ONE Stop: 08/14/21 16:22 Last Admin: 08/14/21 16:46 Dose: 25 mg Documented by: CAILIN Vital Signs Vital signs: Vital Signs - 8 hr 08/14/21 15:10 08/14/21 15:50 08/14/21 15:51 Temperature 98.3 F Pulse Rate 124 H 140 H 131 H Respiratory Rate 18 17 17 Blood Pressure 94/84 91/63 Pulse Oximetry 98 97 97 08/14/21 15:52 08/14/21 16:00 08/14/21 16:30 Temperature Pulse Rate 136 H 131 H 135 H Respiratory Rate 11 L 25 H 22 Blood Pressure 140/61 127/76 Pulse Oximetry 97 97 98 08/14/21 17:00 08/14/21 17:10 08/14/21 17:30 Temperature Pulse Rate 136 H 131 H 121 H Respiratory Rate 22 15 13 Blood Pressure 135/98 H 145/69 H Pulse Oximetry 97 97 96 08/14/21 17:35 08/14/21 17:44 08/14/21 18:00 Temperature Pulse Rate 118 H 76 84 Respiratory Rate 19 24 Blood Pressure 145/69 H 112/59 L Pulse Oximetry 96 99 08/14/21 18:05 Temperature Pulse Rate 81 Respiratory Rate 18 Blood Pressure 145/63 H Pulse Oximetry 96 MDM - Arrhythmia/Palpitations <MIRACLE Adame - Last Filed: 08/14/21 20:04> Lab Data Result diagrams: 08/14/21 16:16 08/14/21 16:16 Labs: Lab Results 08/14/21 08/14/21 08/14/21 Range/Units 15:46 15:46 16:16 WBC (4.5-11.0) X10^3/uL RBC (4.0-5.2) X10^6/uL Hgb (12.0-16.0) g/dL Hct (36-46) % MCV (80-100) fL MCH (26-34) PG MCHC (30-36) % RDW (11.6-14.8) % Plt Count (150-400) X10^3/uL Neut % (Auto) (50-75) % Lymph % (Auto) (25-40) % [place] % (Auto) (3-14) % Eos % (Auto) (2-4) % Baso % (Auto) (0-2) % Neut # (Auto) (9104-5659) /uL Lymph # (Auto) (7577-8078) /uL [place] # (Auto) (0-900) /uL Eos # (Auto) (0-450) /uL Baso # (Auto) (0-100) /uL PT (10.1-12.7) SECONDS INR (0.9-1.3) Sodium (137-145) mmol/L Potassium (3.4-5.1) mmol/L Chloride (98-107) mmol/L Carbon Dioxide (22-32) mmol/L BUN (7-17) mg/dL Creatinine (0.52-1.04) mg/dL Estimated GFR (>60) mL/min BUN/Creatinine Ratio (6-22) Glucose (80-110) mg/dL Lactate (0.7-2.1) mmol/L Calcium (8.4-10.2) mg/dL Magnesium 1.8 (1.6-2.3) mg/dL Total Bilirubin (0.2-1.3) mg/dL AST (14-36) IU/L ALT (<35) IU/L Alkaline Phosphatase (38-126) U/L Total Creatine Kinase (30-135) U/L CK-MB (CK-2) (<2.37) ng/mL CK-MB (CK-2) Rel Index (1.5-5.0) % Troponin I (0.01-0.034) ng/mL NT-Pro-B Natriuret Pep (<450) pg/mL Total Protein (6.3-8.2) g/dL Albumin (3.5-5.0) g/dL Globulin (1.7-4.1) g/dL Albumin/Globulin Ratio (1.0-2.8) Lipase 404 H (23-300) U/L Procalcitonin (<0.5) ng/mL Chlamy pneumoniae PCR Not detected (Not Detect) Adenovirus (PCR) Not detected (Not Detect) B. pertussis DNA (PCR) Not detected (Not Detecte) B.parapertussis DNA PCR Not detected (Not Detecte) Coronavirus OC43 (PCR) Not detected (Not Detect) Coronavirus HKU1 (PCR) Not detected (Not Detect) Coronavirus 229E (PCR) Not detected (Not Detect) SARS-CoV-2 (PCR) Detected H Positive H (Not Detecte) Coronavirus NL63 (PCR) Not detected (Not Detect) Human Metapneumovir PCR Not detected (Not Detect) Influenza Type A (PCR) Not detected (Not Detect) Influenza Type B (PCR) Not detected (Not Detect) M. pneumoniae (PCR) Not detected (Not Detect) Parainfluenza 1 (PCR) Not detected (Not Detect) Parainfluenza 2 (PCR) Not detected (Not Detect) Parainfluenza 3 (PCR) Not detected (Not Detect) Parainfluenza 4 (PCR) Not detected (Not Detect) RSV (PCR) Not detected (Not Detect) Entero/Rhino (PCR) Not detected (Not Detect) 08/14/21 08/14/21 08/14/21 Range/Units 16:16 16:16 16:16 WBC 7.4 (4.5-11.0) X10^3/uL RBC 2.98 L (4.0-5.2) X10^6/uL Hgb 10.0 L (12.0-16.0) g/dL Hct 29.3 L (36-46) % MCV 98.2 (80-100) fL MCH 33.5 (26-34) PG MCHC 34.1 (30-36) % RDW 14.9 H (11.6-14.8) % Plt Count 184 (150-400) X10^3/uL Neut % (Auto) 81.3 H (50-75) % Lymph % (Auto) 7.5 L (25-40) % [place] % (Auto) 10.9 (3-14) % Eos % (Auto) 0.1 L (2-4) % Baso % (Auto) 0.2 (0-2) % Neut # (Auto) 6000 (0946-7086) /uL Lymph # (Auto) 600 L (0841-5058) /uL [place] # (Auto) 800 (0-900) /uL Eos # (Auto) 0 (0-450) /uL Baso # (Auto) 0 (0-100) /uL PT 21.8 H (10.1-12.7) SECONDS INR 1.9 H (0.9-1.3) Sodium 130 L (137-145) mmol/L Potassium 3.3 L (3.4-5.1) mmol/L Chloride 94 L (98-107) mmol/L Carbon Dioxide 23 (22-32) mmol/L BUN 47 H (7-17) mg/dL Creatinine 3.72 H (0.52-1.04) mg/dL Estimated GFR 12 L (>60) mL/min BUN/Creatinine Ratio 12.6 (6-22) Glucose 100 (80-110) mg/dL Lactate (0.7-2.1) mmol/L Calcium 8.1 L (8.4-10.2) mg/dL Magnesium (1.6-2.3) mg/dL Total Bilirubin 0.7 (0.2-1.3) mg/dL AST 26 (14-36) IU/L ALT 21 (<35) IU/L Alkaline Phosphatase 58 (38-126) U/L Total Creatine Kinase 109 (30-135) U/L CK-MB (CK-2) 2.48 H (<2.37) ng/mL CK-MB (CK-2) Rel Index 2.3 (1.5-5.0) % Troponin I < 0.012 (0.01-0.034) ng/mL NT-Pro-B Natriuret Pep 82767 H (<450) pg/mL Total Protein 6.5 (6.3-8.2) g/dL Albumin 3.9 (3.5-5.0) g/dL Globulin 2.6 (1.7-4.1) g/dL Albumin/Globulin Ratio 1.5 (1.0-2.8) Lipase (23-300) U/L Procalcitonin 0.26 (<0.5) ng/mL Chlamy pneumoniae PCR (Not Detect) Adenovirus (PCR) (Not Detect) B. pertussis DNA (PCR) (Not Detecte) B.parapertussis DNA PCR (Not Detecte) Coronavirus OC43 (PCR) (Not Detect) Coronavirus HKU1 (PCR) (Not Detect) Coronavirus 229E (PCR) (Not Detect) SARS-CoV-2 (PCR) (Not Detecte) Coronavirus NL63 (PCR) (Not Detect) Human Metapneumovir PCR (Not Detect) Influenza Type A (PCR) (Not Detect) Influenza Type B (PCR) (Not Detect) M. pneumoniae (PCR) (Not Detect) Parainfluenza 1 (PCR) (Not Detect) Parainfluenza 2 (PCR) (Not Detect) Parainfluenza 3 (PCR) (Not Detect) Parainfluenza 4 (PCR) (Not Detect) RSV (PCR) (Not Detect) Entero/Rhino (PCR) (Not Detect) 08/14/21 08/14/21 Range/Units 16:16 16:16 WBC (4.5-11.0) X10^3/uL RBC (4.0-5.2) X10^6/uL Hgb (12.0-16.0) g/dL Hct (36-46) % MCV (80-100) fL MCH (26-34) PG MCHC (30-36) % RDW (11.6-14.8) % Plt Count (150-400) X10^3/uL Neut % (Auto) (50-75) % Lymph % (Auto) (25-40) % [place] % (Auto) (3-14) % Eos % (Auto) (2-4) % Baso % (Auto) (0-2) % Neut # (Auto) (3652-0679) /uL Lymph # (Auto) (4890-6895) /uL [place] # (Auto) (0-900) /uL Eos # (Auto) (0-450) /uL Baso # (Auto) (0-100) /uL PT Cancelled (10.1-12.7) SECONDS INR Cancelled (0.9-1.3) Sodium (137-145) mmol/L Potassium (3.4-5.1) mmol/L Chloride (98-107) mmol/L Carbon Dioxide (22-32) mmol/L BUN (7-17) mg/dL Creatinine (0.52-1.04) mg/dL Estimated GFR (>60) mL/min BUN/Creatinine Ratio (6-22) Glucose (80-110) mg/dL Lactate 1.0 (0.7-2.1) mmol/L Calcium (8.4-10.2) mg/dL Magnesium (1.6-2.3) mg/dL Total Bilirubin (0.2-1.3) mg/dL AST (14-36) IU/L ALT (<35) IU/L Alkaline Phosphatase (38-126) U/L Total Creatine Kinase (30-135) U/L CK-MB (CK-2) (<2.37) ng/mL CK-MB (CK-2) Rel Index (1.5-5.0) % Troponin I (0.01-0.034) ng/mL NT-Pro-B Natriuret Pep (<450) pg/mL Total Protein (6.3-8.2) g/dL Albumin (3.5-5.0) g/dL Globulin (1.7-4.1) g/dL Albumin/Globulin Ratio (1.0-2.8) Lipase (23-300) U/L Procalcitonin (<0.5) ng/mL Chlamy pneumoniae PCR (Not Detect) Adenovirus (PCR) (Not Detect) B. pertussis DNA (PCR) (Not Detecte) B.parapertussis DNA PCR (Not Detecte) Coronavirus OC43 (PCR) (Not Detect) Coronavirus HKU1 (PCR) (Not Detect) Coronavirus 229E (PCR) (Not Detect) SARS-CoV-2 (PCR) (Not Detecte) Coronavirus NL63 (PCR) (Not Detect) Human Metapneumovir PCR (Not Detect) Influenza Type A (PCR) (Not Detect) Influenza Type B (PCR) (Not Detect) M. pneumoniae (PCR) (Not Detect) Parainfluenza 1 (PCR) (Not Detect) Parainfluenza 2 (PCR) (Not Detect) Parainfluenza 3 (PCR) (Not Detect) Parainfluenza 4 (PCR) (Not Detect) RSV (PCR) (Not Detect) Entero/Rhino (PCR) (Not Detect) Imaging Data Chest x-ray: Radiologist's Impresson: PROCEDURE:? XR CHEST 1V ? INDICATIONS:? chest pain ? TECHNIQUE:? One view of the chest was acquired.? ? COMPARISON:? [facility], CR, XR CHEST 2V, 03/19/2020, 15:21. ? FINDINGS:? ? Surgical changes and devices:? Postsurgical changes of prior cholecystectomy. Overlying EKG wires. ? Lungs and pleura:? Left basilar opacity.? No pleural effusions or pneumothorax.? ? Mediastinum:? Mediastinal contours appear normal.? Heart size is normal.? Vascular calcifications within the aorta. ? Bones and chest wall:? No suspicious bony lesions.? Overlying soft tissues appear unremarkable.? ? IMPRESSION:? ? Left basilar opacity concerning for pneumonia in the correct clinical setting. ? ? Dictated by: Ezra Gutierrez D.O. on 08/14/2021 at 15:00 ? ? Approved by: Ezra Gutierrez D.O. on 08/14/2021 at 15:01 ? ECG Data Interpretation: EKG reviewed by myself and and reveals atrial fibrillation with a rate of 130, without ST changes, with regular axis and intervals. No STEMI, ST segment changes, or acute ischemic changes. Repeat EKG completed at 1818 approximately 45 minutes after her diltiazem was given which shows atrial fibrillation with a rate of 93 beats per minute, she has occasional PVCs on the monitor but not on this EKG, no new ST changes. MDM Narrative Medical decision making narrative: This is an 81-year-old female with history of CKD stage IV on Monday, , Monday dialysis, history of atrial fibrillation on warfarin and is subtherapeutic today with an INR of 1.9, she presents to the emergency department for feeling ill over the last four days with a cough, diarrhea, and tested positive for COVID today on her respiratory panel. Patient did not go to dialysis on because she was feeling poorly, she went this morning, denies any complications with her dialysis. She endorses feeling palpitations earlier this week, denies remembering the last time that she had atrial fibrillation. On EKG when she presented, she had atrial fib with RVR with a rate of 130, occasional ectopy, her lab work was significant for decreased hemoglobin and hematocrit of 10.0 and 29.3, these are stable per her baseline, no leukocytosis, INR is subtherapeutic at 1.9, patient has hypokalemia of 3.3, hyponatremia of 130, a creatinine of less than her baseline of four, GFR is 12 with an elevated BUN of 47, CK-MB is mildly elevated at 2.48 without any troponin elevation[place] [address]. Lipase today is elevated 404, her last level was 204 but she has had levels in the upper 200s, so this is not as significant. Chest x-ray shows left basilar opacity concerning for pneumonia correct clinical setting. Patient was given 25 mg of PO metoprolol for AFib with RVR, her rate did not change, she also was given 10 mg of IV diltiazem, this immediately brought her heart rate down into the 90s, and she stayed there for at least 1 hour after observation. Patient does not qualify for Paxlovid treatment due to her chronic kidney disease. Discussed with patient admission with possible needing to be transferred due to her dialysis for COVID infection and abnormal lab work, patient requests to go home if she could and return if she has any worsening of her symptoms. Patient is nontoxic appearing, her heart rate has stayed below 100, she did not have any palpitations, endorses improvement in her symptoms shins she has been here, she states that she is hungry, and like to go home and eat some dinner. Patient takes 5 mg of warfarin daily, because her INR was 1.9 today, I encouraged her to take 7.5 mg tonight and continue taking 5 mg thereafter because she is in AFib. She has a follow-up appointment scheduled on Monday with her primary care provider, encouraged her to follow up accordingly and to return to the emergency department if she has any worsening of her symptoms. She was prescribed fluticasone and guaifenesin to help treat her symptoms, did not change any of her blood pressure medications. Patient is appropriate and amenable to discharge home. Vital signs are stable on repeat examination is unremarkable. Patient has been informed of results. Patient has been given strict return to ER precautions for any new or worsening symptoms. Patient understands to follow up closely with outpatient providers as instructed. Patient understands plan and agrees to discharge home. All questions and concerns answered at this time. <Jose Kinney, DO - Last Filed: 08/15/21 07:08> Lab Data Labs: Lab Results 06/04/22 06/04/22 06/04/22 Range/Units 15:46 15:46 16:16 WBC (4.5-11.0) X10^3/uL RBC (4.0-5.2) X10^6/uL Hgb (12.0-16.0) g/dL Hct (36-46) % MCV (80-100) fL MCH (26-34) PG MCHC (30-36) % RDW (11.6-14.8) % Plt Count (150-400) X10^3/uL Neut % (Auto) (50-75) % Lymph % (Auto) (25-40) % [place] % (Auto) (3-14) % Eos % (Auto) (2-4) % Baso % (Auto) (0-2) % Neut # (Auto) (3578-8893) /uL Lymph # (Auto) (2887-5599) /uL [place] # (Auto) (0-900) /uL Eos # (Auto) (0-450) /uL Baso # (Auto) (0-100) /uL PT (10.1-12.7) SECONDS INR (0.9-1.3) Sodium (137-145) mmol/L Potassium (3.4-5.1) mmol/L Chloride (98-107) mmol/L Carbon Dioxide (22-32) mmol/L BUN (7-17) mg/dL Creatinine (0.52-1.04) mg/dL Estimated GFR (>60) mL/min BUN/Creatinine Ratio (6-22) Glucose (80-110) mg/dL Lactate (0.7-2.1) mmol/L Calcium (8.4-10.2) mg/dL Magnesium 1.8 (1.6-2.3) mg/dL Total Bilirubin (0.2-1.3) mg/dL AST (14-36) IU/L ALT (<35) IU/L Alkaline Phosphatase (38-126) U/L Total Creatine Kinase (30-135) U/L CK-MB (CK-2) (<2.37) ng/mL CK-MB (CK-2) Rel Index (1.5-5.0) % Troponin I (0.01-0.034) ng/mL NT-Pro-B Natriuret Pep (<450) pg/mL Total Protein (6.3-8.2) g/dL Albumin (3.5-5.0) g/dL Globulin (1.7-4.1) g/dL Albumin/Globulin Ratio (1.0-2.8) Lipase 404 H (23-300) U/L Procalcitonin (<0.5) ng/mL Chlamy pneumoniae PCR Not detected (Not Detect) Adenovirus (PCR) Not detected (Not Detect) B. pertussis DNA (PCR) Not detected (Not Detecte) B.parapertussis DNA PCR Not detected (Not Detecte) Coronavirus OC43 (PCR) Not detected (Not Detect) Coronavirus HKU1 (PCR) Not detected (Not Detect) Coronavirus 229E (PCR) Not detected (Not Detect) SARS-CoV-2 (PCR) Detected H Positive H (Not Detecte) Coronavirus NL63 (PCR) Not detected (Not Detect) Human Metapneumovir PCR Not detected (Not Detect) Influenza Type A (PCR) Not detected (Not Detect) Influenza Type B (PCR) Not detected (Not Detect) M. pneumoniae (PCR) Not detected (Not Detect) Parainfluenza 1 (PCR) Not detected (Not Detect) Parainfluenza 2 (PCR) Not detected (Not Detect) Parainfluenza 3 (PCR) Not detected (Not Detect) Parainfluenza 4 (PCR) Not detected (Not Detect) RSV (PCR) Not detected (Not Detect) Entero/Rhino (PCR) Not detected (Not Detect) 08/14/21 08/14/21 08/14/21 Range/Units 16:16 16:16 16:16 WBC 7.4 (4.5-11.0) X10^3/uL RBC 2.98 L (4.0-5.2) X10^6/uL Hgb 10.0 L (12.0-16.0) g/dL Hct 29.3 L (36-46) % MCV 98.2 (80-100) fL MCH 33.5 (26-34) PG MCHC 34.1 (30-36) % RDW 14.9 H (11.6-14.8) % Plt Count 184 (150-400) X10^3/uL Neut % (Auto) 81.3 H (50-75) % Lymph % (Auto) 7.5 L (25-40) % [place] % (Auto) 10.9 (3-14) % Eos % (Auto) 0.1 L (2-4) % Baso % (Auto) 0.2 (0-2) % Neut # (Auto) 6000 (2479-9155) /uL Lymph # (Auto) 600 L (2730-1010) /uL [place] # (Auto) 800 (0-900) /uL Eos # (Auto) 0 (0-450) /uL Baso # (Auto) 0 (0-100) /uL PT 21.8 H (10.1-12.7) SECONDS INR 1.9 H (0.9-1.3) Sodium 130 L (137-145) mmol/L Potassium 3.3 L (3.4-5.1) mmol/L Chloride 94 L (98-107) mmol/L Carbon Dioxide 23 (22-32) mmol/L BUN 47 H (7-17) mg/dL Creatinine 3.72 H (0.52-1.04) mg/dL Estimated GFR 12 L (>60) mL/min BUN/Creatinine Ratio 12.6 (6-22) Glucose 100 (80-110) mg/dL Lactate (0.7-2.1) mmol/L Calcium 8.1 L (8.4-10.2) mg/dL Magnesium (1.6-2.3) mg/dL Total Bilirubin 0.7 (0.2-1.3) mg/dL AST 26 (14-36) IU/L ALT 21 (<35) IU/L Alkaline Phosphatase 58 (38-126) U/L Total Creatine Kinase 109 (30-135) U/L CK-MB (CK-2) 2.48 H (<2.37) ng/mL CK-MB (CK-2) Rel Index 2.3 (1.5-5.0) % Troponin I < 0.012 (0.01-0.034) ng/mL NT-Pro-B Natriuret Pep 11082 H (<450) pg/mL Total Protein 6.5 (6.3-8.2) g/dL Albumin 3.9 (3.5-5.0) g/dL Globulin 2.6 (1.7-4.1) g/dL Albumin/Globulin Ratio 1.5 (1.0-2.8) Lipase (23-300) U/L Procalcitonin 0.26 (<0.5) ng/mL Chlamy pneumoniae PCR (Not Detect) Adenovirus (PCR) (Not Detect) B. pertussis DNA (PCR) (Not Detecte) B.parapertussis DNA PCR (Not Detecte) Coronavirus OC43 (PCR) (Not Detect) Coronavirus HKU1 (PCR) (Not Detect) Coronavirus 229E (PCR) (Not Detect) SARS-CoV-2 (PCR) (Not Detecte) Coronavirus NL63 (PCR) (Not Detect) Human Metapneumovir PCR (Not Detect) Influenza Type A (PCR) (Not Detect) Influenza Type B (PCR) (Not Detect) M. pneumoniae (PCR) (Not Detect) Parainfluenza 1 (PCR) (Not Detect) Parainfluenza 2 (PCR) (Not Detect) Parainfluenza 3 (PCR) (Not Detect) Parainfluenza 4 (PCR) (Not Detect) RSV (PCR) (Not Detect) Entero/Rhino (PCR) (Not Detect) 08/14/21 08/14/21 Range/Units 16:16 16:16 WBC (4.5-11.0) X10^3/uL RBC (4.0-5.2) X10^6/uL Hgb (12.0-16.0) g/dL Hct (36-46) % MCV (80-100) fL MCH (26-34) PG MCHC (30-36) % RDW (11.6-14.8) % Plt Count (150-400) X10^3/uL Neut % (Auto) (50-75) % Lymph % (Auto) (25-40) % [place] % (Auto) (3-14) % Eos % (Auto) (2-4) % Baso % (Auto) (0-2) % Neut # (Auto) (1229-8487) /uL Lymph # (Auto) (0790-8436) /uL [place] [place] # (Auto) (0-900) /uL Eos # (Auto) (0-450) /uL Baso # (Auto) (0-100) /uL PT Cancelled (10.1-12.7) SECONDS INR Cancelled (0.9-1.3) Sodium (137-145) mmol/L Potassium (3.4-5.1) mmol/L Chloride (98-107) mmol/L Carbon Dioxide (22-32) mmol/L BUN (7-17) mg/dL Creatinine (0.52-1.04) mg/dL Estimated GFR (>60) mL/min BUN/Creatinine Ratio (6-22) Glucose (80-110) mg/dL Lactate 1.0 (0.7-2.1) mmol/L Calcium (8.4-10.2) mg/dL Magnesium (1.6-2.3) mg/dL Total Bilirubin (0.2-1.3) mg/dL AST (14-36) IU/L ALT (<35) IU/L Alkaline Phosphatase (38-126) U/L Total Creatine Kinase (30-135) U/L CK-MB (CK-2) (<2.37) ng/mL CK-MB (CK-2) Rel Index (1.5-5.0) % Troponin I (0.01-0.034) ng/mL NT-Pro-B Natriuret Pep (<450) pg/mL Total Protein (6.3-8.2) g/dL Albumin (3.5-5.0) g/dL Globulin (1.7-4.1) g/dL Albumin/Globulin Ratio (1.0-2.8) Lipase (23-300) U/L Procalcitonin (<0.5) ng/mL Chlamy pneumoniae PCR (Not Detect) Adenovirus (PCR) (Not Detect) B. pertussis DNA (PCR) (Not Detecte) B.parapertussis DNA PCR (Not Detecte) Coronavirus OC43 (PCR) (Not Detect) Coronavirus HKU1 (PCR) (Not Detect) Coronavirus 229E (PCR) (Not Detect) SARS-CoV-2 (PCR) (Not Detecte) Coronavirus NL63 (PCR) (Not Detect) Human Metapneumovir PCR (Not Detect) Influenza Type A (PCR) (Not Detect) Influenza Type B (PCR) (Not Detect) M. pneumoniae (PCR) (Not Detect) Parainfluenza 1 (PCR) (Not Detect) Parainfluenza 2 (PCR) (Not Detect) Parainfluenza 3 (PCR) (Not Detect) Parainfluenza 4 (PCR) (Not Detect) RSV (PCR) (Not Detect) Entero/Rhino (PCR) (Not Detect) Critical Care Time <Kristen Minor EDUCATION ANALYST - Last Filed: 08/14/21 20:04> Critical Care Time Critical Care Time: Yes Total Critical Care Time: 15 Attestation: Vasoactive medication administration Discharge Plan Departure Patient Disposition: Home Clinical Impression: COVID-19, Atrial fibrillation with rapid ventricular response Instructions: DI for Atrial Fibrillation, DI for COVID-19 (Suspected or Confirmed ) Activity Restrictions/Additional Instructions: *You have been diagnosed with COVID-19, and atrial fibrillation with a rapid ventricular rate which was brought down to a normal rate today with medications. Please continue taking your COVID like and losartan and all of your other medications as normally prescribed. Please follow-up with Dr. Dietz next week and call for a follow-up appointment with Dr. Geeta franco. Please let both offices know that you were seen in the emergency department and encouraged to follow-up as soon as possible for your situation. Please return to the emergency department if you have any difficulty breathing, worsening of your symptoms, chest pain, palpitations, feeling poorly. Thank you for trusting us with your care, I hope that you start feeling better soon, I am sorry that the medications are not good for your kidneys. I have sent Mucinex and Flonase to [facility], please pick these up for have somebody else pick them up for you to help treat your symptoms. Please go to dialysis on Monday, return to the ER for any worsening whatsoever. Please take 7.5 mg of warfarin tonight, and 5 mg thereafter, follow-up with Dr. Dietz on Monday as scheduled. *What to do: *Please continue to take your regular medications as directed. [x ] New medication prescriptions sent to your pharmacy: [[facility] ] [ ] New medication written as a paper prescription [ ] No new medications given *Please follow up with your primary care provider in 2-3 days, call for an appointment. Let them know you were seen in the Emergency Department and that we asked that you be seen for follow-up. We will electronically transmit a record of today's note if your PCP is in our system *If you do not have a primary care provider please contact [phone] to establish care with one of the [facility] primary care providers. *Return to Emergency Department if you should have any new, worsening or co ncerning symptoms, such as [fever greater than 101F, chills, worsening pain, persistent vomiting or other bothersome symptoms] Prescriptions: New fluticasone propionate 50 mcg/actuation spray,suspension 1 spray intranasal BID PRN (Reason: nasal congestion) Qty: 16 0RF Rx Instructions: administer into each nostril guaifenesin 400 mg tablet 400 mg PO TID PRN (Reason: cough) Qty: 20 0RF No Action furosemide 20 mg tablet 20 mg PO QDAY PRN (Reason: Edema) Qty: 30 0RF melatonin 5 mg capsule 3 mg PO PRN PRN (Reason: Insomnia) 0RF penicillin V potassium 500 mg tablet 1,000 mg PO BID 0RF Label Comments: TAKE TWO TABLETS BY MOUTH TWICE DAILY [id number] Tablet 1 tab PO DAILY 0RF carvedilol [Coreg] 6.25 mg tablet 25 mg PO BID Qty: 60 0RF allopurinol 100 mg tablet 300 mg PO DAILY 0RF biotin 2,500 mcg capsule 5 mg PO DAILY 0RF warfarin 5 mg tablet 5 mg PO DAILY 0RF losartan 100 mg tablet 100 mg PO DAILY 0RF prednisone 5 mg tablet 10 mg PO DAILY 0RF levothyroxine 25 mcg tablet 50 mcg PO DAILY 0RF dorzolamide-timolol 22.3-6.8 mg/mL drops 1 drop EYE-BOTH BID 0RF Alphagan P 0.1 % drops 1 drp EYE-BOTH BID 0RF Referrals: Harrison Williamson MD [Physician] - Jorge L Dietz MD [Primary Care Provider] - Visit Report Forms: Patient Portal/API <Jose Kinney DO - Last Filed: 08/15/21 07:08> Cosign ED Attending Cosignature Attestation: Dr Kinney Co-Sign Statement: I was available for consultation during this patient's emergency department visit. This chart is signed by myself for administrative purposes only. I did not have direct contact with this patient during this visit. They were seen independently by the APC.
[2021-08-14] MEDS: METOPROLOL IR 25 MG TABLET PO (16:46)
[2021-08-14 16:51] LABS: Add Manual Diff / Slide Review NO; Basophils Absolute Auto 0 /uL (0-100); Basophils Percent Auto 0.2 % (0-2); Eosinophils Absolute Auto 0 /uL (0-450); Eosinophils Percent Auto 0.1 % (2-4); Hematocrit 29.3 % (36-46); Lymphocytes Absolute Auto 600 /uL (1100-4500); Lymphocytes Percent Auto 7.5 % (25-40); Mean Corpuscular HGB Conc 34.1 % (30-36); Mean Corpuscular Hemoglobin 33.5 PG (26-34); Mean Corpuscular Volume 98.2 fL (80-100); Monocytes Absolute Auto 800 /uL (0-900); Monocytes Percent Auto 10.9 % (3-14); Neutrophils Absolute Auto 6000 /uL (1500-7000); Neutrophils Percent Auto 81.3 % (50-75); Platelet Count 184 X10^3/uL (150-400); Red Blood Cell Count 2.98 X10^6/uL (4.0-5.2); Red Cell Distribution Width 14.9 % (11.6-14.8); White Blood Cell Count 7.4 X10^3/uL (4.5-11.0)
[2021-08-14 16:58] LABS: Adenovirus Not Detected (Not Detect); B. parapertussis Not Detected (Not Detecte); Bordetella pertussis Not Detected (Not Detecte); Chlamydophila pneumoniae Not Detected (Not Detect); Coronavirus 229E Not Detected (Not Detect); Coronavirus HKU1 Not Detected (Not Detect); Coronavirus NL 63 Not Detected (Not Detect); Coronavirus OC43 Not Detected (Not Detect); Human Metapneumovirus Not Detected (Not Detect); Human Rhinovirus/Enterovirus Not Detected (Not Detect); Influenza A Not Detected (Not Detect); Influenza B Not Detected (Not Detect); Parainfluenza Virus 1 Not Detected (Not Detect); Parainfluenza Virus 2 Not Detected (Not Detect); Parainfluenza Virus 3 Not Detected (Not Detect); Parainfluenza Virus 4 Not Detected (Not Detect); Respiratory Syncytial Virus Not Detected (Not Detect); SARS- CoV-2 Detected (Not Detecte)
[2021-08-14 16:59] LABS: Mycoplasma pneumoniae Not Detected (Not Detect)
[2021-08-14 17:05] LABS: INR 1.9 (0.9-1.3); Prothrombin Time 21.8 SECONDS (10.1-12.7)
[2021-08-14 17:09] LABS: Alanine Aminotransferase 21 IU/L (<35); Albumin 3.9 g/dL (3.5-5.0); Albumin Globulin Ratio 1.5 (1.0-2.8); Alkaline Phosphatase 58 U/L (38-126); Aspartate Aminotransferase 26 IU/L (14-36); BUN Creatinine Ratio 12.6 (6-22); Bilirubin Total 0.7 mg/dL (0.2-1.3); Blood Urea Nitrogen 47 mg/dL (7-17); Calcium 8.1 mg/dL (8.4-10.2); Carbon Dioxide 23 mmol/L (22-32); Chloride 94 mmol/L (98-107); Creatine Kinase 109 U/L (30-135); Estimated Glomerular Filt Rate 12 mL/min (>60); Globulin 2.6 g/dL (1.7-4.1); Glucose 100 mg/dL (80-110); HEMOLYSIS < 15 (0-50); Potassium 3.3 mmol/L (3.4-5.1); Sodium 130 mmol/L (137-145); Total Protein 6.5 g/dL (6.3-8.2)
[2021-08-14 17:16] LABS: Lipase 404 U/L (23-300); Magnesium 1.8 mg/dL (1.6-2.3)
[2021-08-14 17:21] LABS: NT-proBNP (BNP-Adult 18+) 10200 pg/mL (<450); Troponin I < 0.012 ng/mL (0.01-0.034)
[2021-08-14 17:24] LABS: CKMB % Relative Index 2.3 % (1.5-5.0); Creatine Kinase MB 2.48 ng/mL (<2.37)
[2021-08-14 17:26] LABS: Procalcitonin 0.26 ng/mL (<0.5)
[2021-08-14] MEDS: dilTIAZem 5 MG/ML SDV 10 MG IV (17:35)
== END 2021-08-14 18:46 | disposition home or self-care (01) ==
PROVIDERS: Emergency Medicine; Emergency Provider Nurse Practitioner Critical Care Medicine; Family Provider Family Medicine; PCP Family Medicine
DX: U07.1 COVID-19 (principal); I48.91 Unspecified atrial fibrillation; E87.1 Hypo-osmolality and hyponatremia; E87.6 Hypokalemia; N18.9 Chronic kidney disease, unspecified; Z99.2 Dependence on renal dialysis
CPT/HCPCS: 36415; 71045; 80053; 82550; 82553; 83605; 83690; 83735; 83880; 84145; 84484; 85025; 85610; 87040; 87633; 87635; 93005; 93010; 96374; 99284; C9803

== ENCOUNTER 2021-09-13 12:38 | Emergency (ER) | payer MEDICARE, OTHER, SELFPAY ==
[2021-09-13] VITALS (12 sets, daily range): BP systolic 145–224; BP diastolic 70–133; PULSE 57–65; RESP 15–21; TEMP 36.3; O2SAT 97–100; BMI 29.0
--- NOTE | 2021-09-13 13:10 | DI.RAD.S_ITS ---
PROCEDURE: XR CHEST 2V INDICATIONS: shortness of breath TECHNIQUE: 2 views of the chest were acquired. COMPARISON: [facility], , XR CHEST 1V, 08/14/2021, 15:43. FINDINGS: Surgical changes and devices: None. Lungs and pleura: Lungs are clear. No pleural effusions or pneumothorax. The aorta has atherosclerotic calcifications. Mediastinum: Mediastinal contours are normal. Heart size is normal. Bones and chest wall: No suspicious bony abnormalities. There are multilevel degenerative changes of the thoracic spine. Soft tissues appear unremarkable. IMPRESSION: No acute cardiopulmonary abnormality. Dictated by: Tan Banegas M.D. on 09/13/2021 at 12:53 Approved by: Tan Banegas M.D. on 09/13/2021 at 12:54
[2021-09-13 13:41] LABS: Alanine Aminotransferase 22 IU/L (<35); Albumin 3.7 g/dL (3.5-5.0); Albumin Globulin Ratio 1.3 (1.0-2.8); Alkaline Phosphatase 71 U/L (38-126); Aspartate Aminotransferase 27 IU/L (14-36); Bilirubin Total 0.8 mg/dL (0.2-1.3); Blood Urea Nitrogen 46 mg/dL (7-17); Calcium 8.8 mg/dL (8.4-10.2); Carbon Dioxide 24 mmol/L (22-32); Chloride 95 mmol/L (98-107); Estimated Glomerular Filt Rate 9 mL/min (>60); Globulin 2.9 g/dL (1.7-4.1); Glucose 118 mg/dL (80-110); HEMOLYSIS < 15 (0-50); Potassium 3.6 mmol/L (3.4-5.1); Sodium 131 mmol/L (137-145); Total Protein 6.6 g/dL (6.3-8.2)
[2021-09-13 13:45] LABS: Add Manual Diff / Slide Review NO; Basophils Absolute Auto 100 /uL (0-100); Basophils Percent Auto 0.9 % (0-2); Eosinophils Absolute Auto 0 /uL (0-450); Eosinophils Percent Auto 0.3 % (2-4); Hematocrit 26.6 % (36-46); Hemoglobin 8.7 g/dL (12.0-16.0); Lymphocytes Absolute Auto 1100 /uL (1100-4500); Lymphocytes Percent Auto 10.6 % (25-40); Mean Corpuscular HGB Conc 32.8 % (30-36); Mean Corpuscular Hemoglobin 33.6 PG (26-34); Mean Corpuscular Volume 102.2 fL (80-100); Monocytes Absolute Auto 700 /uL (0-900); Monocytes Percent Auto 6.9 % (3-14); Neutrophils Absolute Auto 8300 /uL (1500-7000); Neutrophils Percent Auto 81.3 % (50-75); Platelet Count 274 X10^3/uL (150-400); Red Blood Cell Count 2.61 X10^6/uL (4.0-5.2); Red Cell Distribution Width 17.1 % (11.6-14.8); White Blood Cell Count 10.3 X10^3/uL (4.5-11.0)
[2021-09-13 14:02] LABS: Lactate (Lactic Acid) 1.5 mmol/L (0.7-2.1)
[2021-09-13 14:04] LABS: Creatine Kinase 65 U/L (30-135)
[2021-09-13 14:30] LABS: NT-proBNP (BNP-Adult 18+) 74500 pg/mL (<450)
--- NOTE | 2021-09-13 14:57 | ED_ITS ---
HPI - Chest Pain General Chief Complaint: Chest Pain Stated Complaint: Trouble breathing, high BP Time Seen by Provider: 09/13/21 13:52 Source: patient Mode of arrival: Ambulatory History of Present Illness HPI narrative: Patient is a 81-year-old female history of hypertension recent COVID infection presenting today with a cough and chest pain. She says it hurts every time she coughs and breathes. She only feels short of breath because it hurts to cough. She was recently admitted [facility] for COVID. She was given Benzanoate capsules help with her cough. She does they are really helping. She feels like she gets these coughing spasms. sHe says overall it hurts pretty bad. She is noted to be quite hypertensive in the ED. Related Data Home Medications Medication Instructions Recorded Confirmed dorzolamide 22.3 mg-timolol 6.8 1 drop EYE-BOTH BID 10/12/17 08/14/21 mg/mL eye drops biotin 2,500 mcg capsule 5 mg PO DAILY 03/04/19 08/14/21 carvedilol 6.25 mg tablet (Coreg) 25 mg PO BID #60 tabs 03/04/19 08/14/21 allopurinol 100 mg tablet 300 mg PO DAILY 09/25/19 08/14/21 furosemide 20 mg tablet 20 mg PO QDAY PRN Edema #30 tabs 09/25/19 08/14/21 losartan 100 mg tablet 100 mg PO DAILY 12/16/20 08/14/21 warfarin 5 mg tablet 5 mg PO DAILY 12/16/20 08/14/21 brimonidine 0.1 % eye drops 1 drp EYE-BOTH BID 06/14/21 08/14/21 (Alphagan P) levothyroxine 25 mcg tablet 50 mcg PO DAILY 06/14/21 08/14/21 melatonin 5 mg capsule 3 mg PO PRN PRN Insomnia 06/14/21 08/14/21 prednisone 5 mg tablet 10 mg PO DAILY 06/14/21 08/14/21 [id number]-[id number] tablet 1 tab PO DAILY 08/14/21 08/14/21 penicillin V potassium 500 mg 1,000 mg PO BID 08/14/21 08/14/21 tablet Previous Rx's Medication Instructions Recorded fluticasone propionate 50 1 spray intranasal BID PRN nasal 08/14/21 mcg/actuation nasal congestion #16 grams spray,suspension guaifenesin 400 mg tablet 400 mg PO TID PRN cough #20 tabs 08/14/21 Allergies Allergy/AdvReac Type Severity Reaction Status Date / Time codeine [CODEINE] Allergy Severe ANAPHYLACTI Verified 12/16/20 10:09 C peanut [PEANUT] Allergy Severe ANAPHYLACTI Verified 12/16/20 10:09 C propofol AdvReac hallucinations, Verified 12/16/20 10:09 confusion Review of Systems Review of Systems Narrative: GENERAL: Denies chills, fatigue, malaise, fever, sweats, travel HEENT: Denies sinus pain, ear pain, sore throat, difficulty swallowing, neck pain RESPIRATORY: See HPI CARDIOVASCULAR: See HPI GASTROINTESTINAL: Denies nausea, vomiting, abdominal pain, diarrhea, constipation, melena. : Denies dysuria, frequency, incontinence, hematuria, urinary retention, flank pain. MUSCULOSKELETAL: Denies weakness, joint pain, or bony pain SKIN: No rash, no erythema, no pruritus NEUROLOGIC: Denies weakness, dizziness, headache, numbness, change in speech, confusion PSYCHIATRIC: No concerning psychosocial issues. 12 point review of systems is negative except for those stated above and HPI Patient History Medical History (Updated 09/13/21 @ 18:07 by Tahira Doherty DO) Atrial fibrillation Chronic anticoagulation Foraminal stenosis of lumbar region Gastroesophageal reflux disease Gout Hypertension Surgical History H/O tubal ligation History of cardiac radiofrequency ablation Hx of cholecystectomy Hx of tonsillectomy Family History Mother Lung cancer Social History Smoking Status: Never smoker Smoking Status: Never smoker Substance Use Type: does not use Exam Initial Vital Signs Initial Vital Signs: Vital Signs Temperature 97.4 F L 09/13/21 13:12 Pulse Rate 60 09/13/21 13:12 Respiratory Rate 21 09/13/21 13:12 Blood Pressure 215/93 H 09/13/21 13:12 Pulse Oximetry 100 09/13/21 13:12 Oxygen Delivery Method 09/13/21 13:12 GENERAL: Alert pleasant 61-year-old and in no acute distress. HEENT: Head atraumatic,EOMI, pupils reactive, face symmetric, moist mucous membranes CARDIOVASCULAR: Regular rate and rhythm without murmurs, rubs or gallops. RESPIRATORY: Breath sounds equal bilaterally, no wheezes rales or rhonchi. ABDOMEN: Soft, nontender. Normoactive bowel sounds all 4 quadrants. No guarding or rebound. EXTREMITIES: Normal range of motion, no clubbing or edema. Neurovascularly intact NEUROLOGICAL: Alert and oriented x4 SKIN: Warm, dry, no laceration, no petechiae, no rashes or lesions. Course Orders Ordered: ED Orders 09/13/21 13:07 BNP [NT-proBNP (BNP-Adult 18+)] Stat Complete Blood Count AUTO DIFF Stat Comprehensive Metabolic Panel Stat Lactate (Lactic Acid) Stat Troponin & CK Cardiac Panel Stat 09/13/21 13:10 XR chest 2V Stat EKG-12 Lead Stat Measure peak expiratory flow ONCE RT Consult Eval and Treat Now 09/13/21 15:45 Hemoglobin and Hematocrit Stat PT [Prothrombin Time INR] Stat PTT [Partial Thromboplastin Time] Stat Trop I [Troponin I] Stat Discontinued Medications Albuterol (Albuterol 2.5 Mg/3 Ml Neb (Adult)) 2.5 mg INH NOW ONE Stop: 09/13/21 16:42 Last Admin: 09/13/21 16:46 Dose: 2.5 mg Documented By: GINETTE Albuterol (Albuterol Hfa Mdi 60 Puff/8 Gm Inhaler) 1 puff INH NOW ONE Stop: 09/13/21 17:53 Last Admin: 09/13/21 18:10 Dose: 1 puff Documented By: LEILANI Vital Signs Vital signs: Vital Signs - 8 hr 09/13/21 13:12 09/13/21 16:46 09/13/21 13:33 Temperature 97.4 F L Pulse Rate 60 60 61 Respiratory Rate 21 16 Blood Pressure 215/93 H Pulse Oximetry 100 97 100 Oxygen Delivery Method Room Air Room Air 09/13/21 13:34 09/13/21 13:34 09/13/21 14:00 Temperature Pulse Rate 61 58 L Respiratory Rate 19 Blood Pressure 211/98 H Pulse Oximetry 99 97 Oxygen Delivery Method 09/13/21 14:01 09/13/21 14:01 09/13/21 14:30 Temperature Pulse Rate 58 L Respiratory Rate 21 Blood Pressure 203/108 H 224/95 H Pulse Oximetry 98 Oxygen Delivery Method 09/13/21 14:30 09/13/21 15:00 09/13/21 15:04 Temperature Pulse Rate 60 59 L Respiratory Rate 19 Blood Pressure 145/70 H Pulse Oximetry 99 99 Oxygen Delivery Method 09/13/21 15:04 09/13/21 15:30 09/13/21 15:31 Temperature Pulse Rate 65 57 L 58 L Respiratory Rate 16 20 Blood Pressure Pulse Oximetry 99 100 99 Oxygen Delivery Method 09/13/21 15:31 09/13/21 16:00 09/13/21 16:00 Temperature Pulse Rate 60 Respiratory Rate 15 Blood Pressure 214/89 H 193/133 H Pulse Oximetry 99 Oxygen Delivery Method MDM - Chest Pain Lab Data Result diagrams: 09/13/21 15:45 09/13/21 13:07 Labs: Lab Results 09/13/21 09/13/21 09/13/21 Range/Units 13:07 13:07 13:07 WBC 10.3 (4.5-11.0) X10^3/uL RBC 2.61 L (4.0-5.2) X10^6/uL Hgb 8.7 L (12.0-16.0) g/dL Hct 26.6 L (36-46) % MCV 102.2 H (80-100) fL MCH 33.6 (26-34) PG MCHC 32.8 (30-36) % RDW 17.1 H (11.6-14.8) % Plt Count 274 (150-400) X10^3/uL Neut % (Auto) 81.3 H (50-75) % Lymph % (Auto) 10.6 L (25-40) % [place] % (Auto) 6.9 (3-14) % Eos % (Auto) 0.3 L (2-4) % Baso % (Auto) 0.9 (0-2) % Neut # (Auto) 8300 H (7863-5151) /uL Lymph # (Auto) 1100 (7966-6030) /uL [place] # (Auto) 700 (0-900) /uL Eos # (Auto) 0 (0-450) /uL Baso # (Auto) 100 (0-100) /uL PT (10.1-12.7) SECONDS INR (0.9-1.3) APTT (26.4-36.2) SECONDS Sodium 131 L (137-145) mmol/L Potassium 3.6 (3.4-5.1) mmol/L Chloride 95 L (98-107) mmol/L Carbon Dioxide 24 (22-32) mmol/L BUN 46 H (7-17) mg/dL Creatinine 4.61 H (0.52-1.04) mg/dL Estimated GFR 9 L (>60) mL/min BUN/Creatinine Ratio 10.0 (6-22) Glucose 118 H (80-110) mg/dL Lactate 1.5 (0.7-2.1) mmol/L Calcium 8.8 (8.4-10.2) mg/dL Total Bilirubin 0.8 (0.2-1.3) mg/dL AST 27 (14-36) IU/L ALT 22 (<35) IU/L Alkaline Phosphatase 71 (38-126) U/L Total Creatine Kinase (30-135) U/L CK-MB (CK-2) CK-MB (CK-2) Rel Index Troponin I (0.01-0.034) ng/mL NT-Pro-B Natriuret Pep (<450) pg/mL Total Protein 6.6 (6.3-8.2) g/dL Albumin 3.7 (3.5-5.0) g/dL Globulin 2.9 (1.7-4.1) g/dL Albumin/Globulin Ratio 1.3 (1.0-2.8) 09/13/21 09/13/21 09/13/21 Range/Units 13:07 15:45 15:45 WBC (4.5-11.0) X10^3/uL RBC (4.0-5.2) X10^6/uL Hgb 8.9 L (12.0-16.0) g/dL Hct 27.1 L (36-46) % MCV (80-100) fL MCH (26-34) PG MCHC (30-36) % RDW (11.6-14.8) % Plt Count (150-400) X10^3/uL Neut % (Auto) (50-75) % Lymph % (Auto) (25-40) % [place] % (Auto) (3-14) % Eos % (Auto) (2-4) % Baso % (Auto) (0-2) % Neut # (Auto) (7673-8028) /uL Lymph # (Auto) (0245-4946) /uL [place] # (Auto) (0-900) /uL Eos # (Auto) (0-450) /uL Baso # (Auto) (0-100) /uL PT (10.1-12.7) SECONDS INR (0.9-1.3) APTT (26.4-36.2) SECONDS Sodium (137-145) mmol/L Potassium (3.4-5.1) mmol/L Chloride (98-107) mmol/L Carbon Dioxide (22-32) mmol/L BUN (7-17) mg/dL Creatinine (0.52-1.04) mg/dL Estimated GFR (>60) mL/min BUN/Creatinine Ratio (6-22) Glucose (80-110) mg/dL Lactate (0.7-2.1) mmol/L Calcium (8.4-10.2) mg/dL Total Bilirubin (0.2-1.3) mg/dL AST (14-36) IU/L ALT (<35) IU/L Alkaline Phosphatase (38-126) U/L Total Creatine Kinase 65 (30-135) U/L CK-MB (CK-2) TNP CK-MB (CK-2) Rel Index TNP Troponin I 0.050 H 0.048 H (0.01-0.034) ng/mL NT-Pro-B Natriuret Pep 39121 H (<450) pg/mL Total Protein (6.3-8.2) g/dL Albumin (3.5-5.0) g/dL Globulin (1.7-4.1) g/dL Albumin/Globulin Ratio (1.0-2.8) 09/13/21 Range/Units 15:45 WBC (4.5-11.0) X10^3/uL RBC (4.0-5.2) X10^6/uL Hgb (12.0-16.0) g/dL Hct (36-46) % MCV (80-100) fL MCH (26-34) PG MCHC (30-36) % RDW (11.6-14.8) % Plt Count (150-400) X10^3/uL Neut % (Auto) (50-75) % Lymph % (Auto) (25-40) % [place] % (Auto) (3-14) % Eos % (Auto) (2-4) % Baso % (Auto) (0-2) % Neut # (Auto) (5754-6333) /uL Lymph # (Auto) (3467-5595) /uL [place] # (Auto) (0-900) /uL Eos # (Auto) (0-450) /uL Baso # (Auto) (0-100) /uL PT 13.3 H (10.1-12.7) SECONDS INR 1.2 (0.9-1.3) APTT 27 (26.4-36.2) SECONDS Sodium (137-145) mmol/L Potassium (3.4-5.1) mmol/L Chloride (98-107) mmol/L Carbon Dioxide (22-32) mmol/L BUN (7-17) mg/dL Creatinine (0.52-1.04) mg/dL Estimated GFR (>60) mL/min BUN/Creatinine Ratio (6-22) Glucose (80-110) mg/dL Lactate (0.7-2.1) mmol/L Calcium (8.4-10.2) mg/dL Total Bilirubin (0.2-1.3) mg/dL AST (14-36) IU/L ALT (<35) IU/L Alkaline Phosphatase (38-126) U/L Total Creatine Kinase (30-135) U/L CK-MB (CK-2) CK-MB (CK-2) Rel Index Troponin I (0.01-0.034) ng/mL NT-Pro-B Natriuret Pep (<450) pg/mL Total Protein (6.3-8.2) g/dL Albumin (3.5-5.0) g/dL Globulin (1.7-4.1) g/dL Albumin/Globulin Ratio (1.0-2.8) Imaging Data Chest x-ray: Radiologist's Impression: [address] [place] [id number] XRay Report Signed Patient: Clementina Roque MR#: [id number] : 1940 Acct:[id number] Age/Sex: 81 / F Date of Service: 09/13/21 Loc: ED Accession Number: [id number] ?? Procedure: XR chest 2V Ordering Provider: Tahira Doherty D.O. PROCEDURE:? XR CHEST 2V ? INDICATIONS:? shortness of breath ? TECHNIQUE:? 2 views of the chest were acquired.? ? COMPARISON:? [facility], CR, XR CHEST 1V, 08/14/2021, 15:43. ? FINDINGS:? ? Surgical changes and devices:? None.? ? Lungs and pleura:? Lungs are clear.? No pleural effusions or pneumothorax.? The aorta has atherosclerotic calcifications. ? Mediastinum:? Mediastinal contours are normal.? Heart size is normal.? ? Bones and chest wall:? No suspicious bony abnormalities.? There are multilevel degenerative changes of the thoracic spine.? Soft tissues appear unremarkable.? ? IMPRESSION:? No acute cardiopulmonary abnormality. ? ? Dictated by: Tan Banegas M.D. on 09/13/2021 at 12:53 ? ? Approved by: Tan Banegas M.D. on 09/13/2021 at 12:54 ? ECG Data Interpretation: Normal sinus rhythm rate 58 MN interval 168 QRS [address] changes or T- wave inversions PVCs noted MDM Narrative Medical decision making narrative: Patient is found to be COVID positive again. She said she was positive twice already this the left month she even had a negative test at some point. She is here because of elevated blood pressure and significant pain with coughing in her chest. She is given albuterol inhaler which does seem to help. She is noted to be anemic which is stable. She states that when she is at [facility] she was taken off of her warfarin I am assuming because of her anemia but I have yet to review records from [facility]. Her troponin is indeterminate but stable and actually mildly lower. She has no EKG changes. She has chronic kidney disease and is on dialysis she is supposed to go to dialysis tomorrow. At this time after albuterol treatment she is feeling better recommend going home. She is offered pain medications for her chest pain which actually looks like it is quite severe however she declines at this time Discharge Plan Departure Patient Disposition: Home Clinical Impression: COVID-19, Anemia, Cough, Hypertension Instructions: Essential Hypertension, DI for COVID-19 (Suspected or Confirmed ) Activity Restrictions/Additional Instructions: *You have been diagnosed with COVID-19, elevated blood pressure *What to do: At this time he is wearing mask when your out and about. Please check your blood pressure once a day once you find her blood pressure cuff. Recorded. You may require blood pressure medication. Dialysis may also help wi th your blood pressure *Continue to take medications as directed Albuterol inhaler 1-2 puffs every 4 hours if needed for coughing or shortness of breath Tylenol 650 mg every 4-6 hours if needed for pain *Follow up with your primary care provider in 2-3 days or call [phone] *Return to ER if you should have increasing chest pain, shortness of breath or any new, worsening or concerning symptoms Prescriptions: No Action furosemide 20 mg tablet 20 mg PO QDAY PRN (Reason: Edema) Qty: 30 melatonin 5 mg capsule 3 mg PO PRN PRN (Reason: Insomnia) penicillin V potassium 500 mg tablet 1,000 mg PO BID Label Comments: TAKE TWO TABLETS BY MOUTH TWICE DAILY [id number] Tablet 1 tab PO DAILY fluticasone propionate 50 mcg/actuation spray,suspension 1 spray intranasal BID PRN (Reason: nasal congestion) Qty: 16 0RF Rx Instructions: administer into each nostril guaifenesin 400 mg tablet 400 mg PO TID PRN (Reason: cough) Qty: 20 0RF carvedilol [Coreg] 6.25 mg tablet 25 mg PO BID Qty: 60 allopurinol 100 mg tablet 300 mg PO DAILY biotin 2,500 mcg capsule 5 mg PO DAILY warfarin 5 mg tablet 5 mg PO DAILY losartan 100 mg tablet 100 mg PO DAILY prednisone 5 mg tablet 10 mg PO DAILY levothyroxine 25 mcg tablet 50 mcg PO DAILY dorzolamide-timolol 22.3-6.8 mg/mL drops 1 drop EYE-BOTH BID Alphagan P 0.1 % drops 1 drp EYE-BOTH BID Referrals: Jorge L Dietz MD [Primary Care Provider] - Visit Report Forms: Patient Portal/API
[2021-09-13 16:06] LABS: Hematocrit 27.1 % (36-46); Hemoglobin 8.9 g/dL (12.0-16.0)
[2021-09-13 16:27] LABS: Troponin I 0.048 ng/mL (0.01-0.034)
[2021-09-13] MEDS: ALBUTEROL 2.5 MG/3 ML NEB (ADULT) INH (16:46)
[2021-09-13 17:32] LABS: INR 1.2 (0.9-1.3); Prothrombin Time 13.3 SECONDS (10.1-12.7)
[2021-09-13 17:34] LABS: PTT Partial Thromboplastin Tim 27 SECONDS (26.4-36.2)
[2021-09-13] MEDS: ALBUTEROL HFA MDI 60 PUFF/8 GM INHALER INH (18:10)
== END 2021-09-13 18:15 | disposition home or self-care (01) ==
PROVIDERS: Emergency Provider Emergency Medicine; Family Provider Family Medicine; PCP Family Medicine
DX: U07.1 COVID-19 (principal); D64.9 Anemia, unspecified; R05.9 Cough, unspecified; I10 Essential (primary) hypertension; R07.9 Chest pain, unspecified
CPT/HCPCS: 36415; 71046; 80053; 82550; 83605; 83880; 84484; 85014; 85018; 85025; 85610; 85730; 93005; 93010; 94640; 99284; A9270; J7613

== ENCOUNTER 2021-09-18 14:47 | Emergency (ER) | payer MEDICARE, OTHER, SELFPAY ==
[2021-09-18] VITALS (12 sets, daily range): BP systolic 168–212; BP diastolic 84–126; PULSE 95–124; RESP 18–31; TEMP 37; O2SAT 95–99; BMI 29.7
--- NOTE | 2021-09-18 15:53 | DI.RAD.S_ITS ---
PROCEDURE: XR CHEST 1V INDICATIONS: chest pain TECHNIQUE: One view of the chest was acquired. COMPARISON: [facility], CR, XR CHEST 2V, 09/13/2021, 12:59. FINDINGS: Surgical changes and devices: None. Lungs and pleura: There is pulmonary vascular congestion. No pneumothorax or pleural effusion. Mediastinum: Mediastinal contours appear normal. Heart size is enlarged. Bones and chest wall: No suspicious bony lesions. Overlying soft tissues appear unremarkable. IMPRESSION: Cardiomegaly and pulmonary vascular congestion consistent with mild CHF. Dictated by: Tan Banegas M.D. on 09/18/2021 at 15:27 Approved by: Tan Banegas M.D. on 09/18/2021 at 15:29
[2021-09-18 16:03] LABS: Add Manual Diff / Slide Review NO; Basophils Absolute Auto 100 /uL (0-100); Basophils Percent Auto 0.4 % (0-2); Eosinophils Absolute Auto 0 /uL (0-450); Eosinophils Percent Auto 0.1 % (2-4); Hematocrit 29.6 % (36-46); Hemoglobin 9.6 g/dL (12.0-16.0); Lymphocytes Absolute Auto 1600 /uL (1100-4500); Lymphocytes Percent Auto 11.5 % (25-40); Mean Corpuscular HGB Conc 32.4 % (30-36); Mean Corpuscular Volume 101.9 fL (80-100); Monocytes Absolute Auto 700 /uL (0-900); Monocytes Percent Auto 5.4 % (3-14); Neutrophils Absolute Auto 11500 /uL (1500-7000); Neutrophils Percent Auto 82.6 % (50-75); Platelet Count 195 X10^3/uL (150-400); Red Blood Cell Count 2.91 X10^6/uL (4.0-5.2); Red Cell Distribution Width 17.4 % (11.6-14.8); White Blood Cell Count 13.9 X10^3/uL (4.5-11.0)
[2021-09-18 16:08] LABS: Alanine Aminotransferase 32 IU/L (<35); Albumin 3.9 g/dL (3.5-5.0); Albumin Globulin Ratio 1.4 (1.0-2.8); Alkaline Phosphatase 64 U/L (38-126); Aspartate Aminotransferase 51 IU/L (14-36); BUN Creatinine Ratio 8.9 (6-22); Bilirubin Total 1.2 mg/dL (0.2-1.3); Blood Urea Nitrogen 20 mg/dL (7-17); Calcium 8.5 mg/dL (8.4-10.2); Carbon Dioxide 28 mmol/L (22-32); Chloride 95 mmol/L (98-107); Creatine Kinase 96 U/L (30-135); Estimated Glomerular Filt Rate 22 mL/min (>60); Globulin 2.7 g/dL (1.7-4.1); Glucose 171 mg/dL (80-110); HEMOLYSIS 39 (0-50); Lipase 181 U/L (23-300); Magnesium 1.8 mg/dL (1.6-2.3); Potassium 3.3 mmol/L (3.4-5.1); Sodium 131 mmol/L (137-145); Total Protein 6.6 g/dL (6.3-8.2)
[2021-09-18 16:19] LABS: Troponin I 0.096 ng/mL (0.01-0.034)
--- NOTE | 2021-09-18 16:34 | ED.ARRPALP ---
HPI - Arrhythmia/Palpitations <Radha C Kelbyallyssa, - Last Filed: 09/20/21 12:52> General Chief Complaint: Arrhythmia/Palpitations Stated Complaint: sent from [facility] High BP with rapid HR Time Seen by Provider: 09/18/21 15:52 Source: patient Mode of arrival: Wheelchair Limitations: no limitations History of Present Illness HPI narrative: This is an 81-year-old female with complaint of feeling unwell since early August. Patient was hospitalized for COVID 1st 2 weeks of August 2021. Since then she is had persistent cough. No fevers. No chest pain, occasional shortness of breath. She denies any syncope or passing out. No vomiting or nausea. No diarrhea, no constipation. She does still make urine but states she is on dialysis for life. She noted today her right lower extremity became swollen all the sudden during dialysis which is atypical and she was having some aching and discomfort particularly in the lower foot. She has a history of either AFib or flutter had an ablation 2 or 3 years ago was on Coumadin until hospitalized for COVID and it was stopped for 2 weeks and restarted last night. She had her Monday, Monday dialysis and missed the last 15 minutes today because she had to go the bathroom. She was noted to be hypertensive with an elevated heart rate and was told to come to the ER. She felt her dialysis today was somewhat helpful for her symptoms but she still feels like she does not have much energy and has a persistent cough with shortness of breath. She also has a history of hypertension, gout with no history of blood clots. Surgeries include fistula, cholecystectomy, tonsillectomy and cardiac ablation but no cardiac stents. Related Data Home Medications Medication Instructions Recorded Confirmed dorzolamide 22.3 mg-timolol 6.8 1 drop EYE-BOTH BID 10/12/17 08/14/21 mg/mL eye drops biotin 2,500 mcg capsule 5 mg PO DAILY 03/04/19 08/14/21 allopurinol 100 mg tablet 300 mg PO DAILY 09/25/19 08/14/21 furosemide 20 mg tablet 20 mg PO QDAY PRN Edema #30 tabs 09/25/19 08/14/21 warfarin 5 mg tablet 5 mg PO DAILY 12/16/20 08/14/21 brimonidine 0.1 % eye drops 1 drp EYE-BOTH BID 06/14/21 08/14/21 (Alphagan P) levothyroxine 25 mcg tablet 50 mcg PO DAILY 06/14/21 08/14/21 melatonin 5 mg capsule 3 mg PO PRN PRN Insomnia 06/14/21 08/14/21 prednisone 5 mg tablet 10 mg PO DAILY 06/14/21 08/14/21 gueegvr-otgiuqfei-moyk tablet 1 tab PO DAILY 08/14/21 08/14/21 metoprolol succinate 100 mg 1 tab PO BID 09/18/21 09/18/21 tablet,extended release 24 hr Previous Rx's Medication Instructions Recorded fluticasone propionate 50 1 spray intranasal BID PRN nasal 08/14/21 mcg/actuation nasal congestion #16 grams spray,suspension guaifenesin 400 mg tablet 400 mg PO TID PRN cough #20 tabs 08/14/21 Allergies Allergy/AdvReac Type Severity Reaction Status Date / Time codeine [CODEINE] Allergy Severe ANAPHYLACTI Verified 12/16/20 10:09 C peanut [PEANUT] Allergy Severe ANAPHYLACTI Verified 12/16/20 10:09 C propofol AdvReac hallucinations, Verified 12/16/20 10:09 confusion Review of Systems <Radha Ramirez DO - Last Filed: 09/20/21 12:52> Review of Systems ROS Unobtainable: All systems reviewed & are unremarkable except as noted in HPI and below Patient History <Radha Ramirez DO - Last Filed: 09/20/21 12:52> Medical History (Updated 09/18/21 @ 20:38 by Jose Kinney DO) Atrial fibrillation Chronic anticoagulation Foraminal stenosis of lumbar region Gastroesophageal reflux disease Gout Hypertension Surgical History H/O tubal ligation History of cardiac radiofrequency ablation Hx of cholecystectomy Hx of tonsillectomy Family History Mother Lung cancer Social History Smoking Status: Never smoker Smoking Status: Never smoker Substance Use Type: does not use Exam <Radha Ramirez DO - Last Filed: 09/20/21 12:52> Narrative Exam Narrative: GEN: well nourished, well appearing elderly female, alert and oriented x 3, patient appears to be in mild distress. HEENT: Atraumatic, pupils are equal round reactive to light, extraocular movements are intact, nares are clear HEART: Regular rate and rhythm without murmur, clicks, rubs. Pulses are equal in upper and lower extremities LUNGS:Lungs clear to auscultation, no wheezes, rales, crackles, chest moves symmetrically, patient has dry cough. No tachypnea accessory muscle use. ABD:bowel sounds normal, soft, non-tender, no guarding, rebound, rigidity, no masses noted, no hepatosplenomegaly :No CVA tenderness MSCL: Non-tender, no muscle atrophy, muscles strength 5/5 upper and lower extremities, full range of motion, normal gait NEURO:CN 2-12 intact, sensation normal SKIN: No rash, erythema or other skin changes. Initial Vital Signs Initial Vital Signs: Vital Signs Temperature 98.6 F 09/18/21 14:57 Pulse Rate 115 H 09/18/21 14:57 Respiratory Rate 18 09/18/21 14:57 Blood Pressure 168/84 H 09/18/21 14:57 Pulse Oximetry 97 09/18/21 14:57 Oxygen Delivery Method 09/18/21 14:57 <Jose Kinney DO - Last Filed: 09/19/21 00:31> Initial Vital Signs Initial Vital Signs: Vital Signs Temperature 98.6 F 09/18/21 14:57 Pulse Rate 115 H 09/18/21 14:57 Respiratory Rate 18 09/18/21 14:57 Blood Pressure 168/84 H 09/18/21 14:57 Pulse Oximetry 97 09/18/21 14:57 Oxygen Delivery Method 09/18/21 14:57 Course <Radha Ramirez DO - Last Filed: 09/20/21 12:52> Orders Ordered: Discontinued Medications Metoprolol Succinate (Metoprolol Er 50 Mg Tablet) 100 mg PO NOW ONE Stop: 09/18/21 19:00 Last Admin: 09/18/21 19:35 Dose: 100 mg Documented By: Metoprolol Tartrate (Metoprolol Tartrate 5 Mg/5 Ml Inj) 5 mg IV Q5M [facility] Stop: 09/18/21 17:41 Last Admin: 09/18/21 18:18 Dose: 5 mg Documented By: Admin: 09/18/21 17:53 Dose: 5 mg Documented By: Admin: 09/18/21 17:35 Dose: 5 mg Documented By: CLARK Vital Signs Vital signs: Vital Signs - 8 hr 09/18/21 16:30 09/18/21 16:30 09/18/21 16:32 Pulse Rate 106 H Respiratory Rate 22 Blood Pressure 211/124 H 207/123 H Pulse Oximetry 95 Oxygen Delivery Method 09/18/21 16:32 09/18/21 17:00 09/18/21 17:00 Pulse Rate 109 H 105 H Respiratory Rate 20 25 H Blood Pressure 202/118 H Pulse Oximetry 97 96 Oxygen Delivery Method 09/18/21 17:30 09/18/21 17:30 09/18/21 17:43 Pulse Rate 111 H 107 H Respiratory Rate 31 H 25 H Blood Pressure 212/121 H Pulse Oximetry 97 98 Oxygen Delivery Method 09/18/21 17:43 09/18/21 18:00 09/18/21 18:00 Pulse Rate 104 H Respiratory Rate 26 H Blood Pressure 190/88 H 193/109 H Pulse Oximetry 99 Oxygen Delivery Method 09/18/21 18:30 09/18/21 18:30 09/18/21 19:00 Pulse Rate 98 H Respiratory Rate 22 Blood Pressure 204/93 H 190/118 H Pulse Oximetry 97 Oxygen Delivery Method 09/18/21 19:00 09/18/21 19:30 09/18/21 20:00 Pulse Rate 113 H 124 H 95 H Respiratory Rate 25 H 24 27 H Blood Pressure Pulse Oximetry 99 97 Oxygen Delivery Method Room Air Room Air <Jose Kinney DO - Last Filed: 09/19/21 00:31> Orders Ordered: Discontinued Medications Metoprolol Succinate (Metoprolol Er 50 Mg Tablet) 100 mg PO NOW ONE Stop: 09/18/21 19:00 Last Admin: 09/18/21 19:35 Dose: 100 mg Documented By: CLARK Metoprolol Tartrate (Metoprolol Tartrate 5 Mg/5 Ml Inj) 5 mg IV Q5M [facility] Stop: 09/18/21 17:41 Last Admin: 09/18/21 18:18 Dose: 5 mg Documented By: Admin: 09/18/21 17:53 Dose: 5 mg Documented By: Admin: 09/18/21 17:35 Dose: 5 mg Documented By: CLARK Vital Signs Vital signs: Vital Signs - 8 hr 09/18/21 16:30 09/18/21 16:30 09/18/21 16:32 Pulse Rate 106 H Respiratory Rate 22 Blood Pressure 211/124 H 207/123 H Pulse Oximetry 95 Oxygen Delivery Method 09/18/21 16:32 09/18/21 17:00 09/18/21 17:00 Pulse Rate 109 H 105 H Respiratory Rate 20 25 H Blood Pressure 202/118 H Pulse Oximetry 97 96 Oxygen Delivery Method 09/18/21 17:30 09/18/21 17:30 09/18/21 17:43 Pulse Rate 111 H 107 H Respiratory Rate 31 H 25 H Blood Pressure 212/121 H Pulse Oximetry 97 98 Oxygen Delivery Method 09/18/21 17:43 09/18/21 18:00 09/18/21 18:00 Pulse Rate 104 H Respiratory Rate 26 H Blood Pressure 190/88 H 193/109 H Pulse Oximetry 99 Oxygen Delivery Method 09/18/21 18:30 09/18/21 18:30 09/18/21 19:00 Pulse Rate 98 H Respiratory Rate 22 Blood Pressure 204/93 H 190/118 H Pulse Oximetry 97 Oxygen Delivery Method 09/18/21 19:00 09/18/21 19:30 09/18/21 20:00 Pulse Rate 113 H 124 H 95 H Respiratory Rate 25 H 24 27 H Blood Pressure Pulse Oximetry 99 97 Oxygen Delivery Method Room Air Room Air MDM - Arrhythmia/Palpitations <Radha Ramirez, - Last Filed: 09/20/21 12:52> Lab Data Result diagrams: 09/18/21 15:14 09/18/21 15:14 Labs: Lab Results 09/18/21 09/18/21 09/18/21 Range/Units 15:14 15:14 15:14 WBC 13.9 H (4.5-11.0) X10^3/uL RBC 2.91 L (4.0-5.2) X10^6/uL Hgb 9.6 L (12.0-16.0) g/dL Hct 29.6 L (36-46) % MCV 101.9 H (80-100) fL MCH 33.0 (26-34) PG MCHC 32.4 (30-36) % RDW 17.4 H (11.6-14.8) % Plt Count 195 (150-400) X10^3/uL Neut % (Auto) 82.6 H (50-75) % Lymph % (Auto) 11.5 L (25-40) % [place] % (Auto) 5.4 (3-14) % Eos % (Auto) 0.1 L (2-4) % Baso % (Auto) 0.4 (0-2) % Neut # (Auto) 43446 H (0350-9612) /uL Lymph # (Auto) 1600 (0989-5002) /uL [place] # (Auto) 700 (0-900) /uL Eos # (Auto) 0 (0-450) /uL Baso # (Auto) 100 (0-100) /uL PT 13.8 H (10.1-12.7) SECONDS INR 1.2 (0.9-1.3) APTT 27 (26.4-36.2) SECONDS D-Dimer (<230) ng/mL Sodium 131 L (137-145) mmol/L Potassium 3.3 L (3.4-5.1) mmol/L Chloride 95 L (98-107) mmol/L Carbon Dioxide 28 (22-32) mmol/L BUN 20 H (7-17) mg/dL Creatinine 2.25 H (0.52-1.04) mg/dL Estimated GFR 22 L (>60) mL/min BUN/Creatinine Ratio 8.9 (6-22) Glucose 171 H (80-110) mg/dL Calcium 8.5 (8.4-10.2) mg/dL Magnesium 1.8 (1.6-2.3) mg/dL Total Bilirubin 1.2 (0.2-1.3) mg/dL AST 51 H (14-36) IU/L ALT 32 (<35) IU/L Alkaline Phosphatase 64 (38-126) U/L Total Creatine Kinase 96 (30-135) U/L CK-MB (CK-2) TNP CK-MB (CK-2) Rel Index TNP Troponin I 0.096 H (0.01-0.034) ng/mL Total Protein 6.6 (6.3-8.2) g/dL Albumin 3.9 (3.5-5.0) g/dL Globulin 2.7 (1.7-4.1) g/dL Albumin/Globulin Ratio 1.4 (1.0-2.8) Lipase 181 (23-300) U/L SARS-CoV-2 (PCR) (Negative) 09/18/21 09/18/21 09/18/21 Range/Units 15:14 16:13 17:20 WBC (4.5-11.0) X10^3/uL RBC (4.0-5.2) X10^6/uL Hgb (12.0-16.0) g/dL Hct (36-46) % MCV (80-100) fL MCH (26-34) PG MCHC (30-36) % RDW (11.6-14.8) % Plt Count (150-400) X10^3/uL Neut % (Auto) (50-75) % Lymph % (Auto) (25-40) % [place] % (Auto) (3-14) % Eos % (Auto) (2-4) % Baso % (Auto) (0-2) % Neut # (Auto) (5358-7181) /uL Lymph # (Auto) (6407-5899) /uL [place] # (Auto) (0-900) /uL Eos # (Auto) (0-450) /uL Baso # (Auto) (0-100) /uL PT (10.1-12.7) SECONDS INR (0.9-1.3) APTT (26.4-36.2) SECONDS D-Dimer 1733 H (<230) ng/mL Sodium (137-145) mmol/L Potassium (3.4-5.1) mmol/L Chloride (98-107) mmol/L Carbon Dioxide (22-32) mmol/L BUN (7-17) mg/dL Creatinine (0.52-1.04) mg/dL Estimated GFR (>60) mL/min BUN/Creatinine Ratio (6-22) Glucose (80-110) mg/dL Calcium (8.4-10.2) mg/dL Magnesium (1.6-2.3) mg/dL Total Bilirubin (0.2-1.3) mg/dL AST (14-36) IU/L ALT (<35) IU/L Alkaline Phosphatase (38-126) U/L Total Creatine Kinase (30-135) U/L CK-MB (CK-2) CK-MB (CK-2) Rel Index Troponin I 0.083 H (0.01-0.034) ng/mL Total Protein (6.3-8.2) g/dL Albumin (3.5-5.0) g/dL Globulin (1.7-4.1) g/dL Albumin/Globulin Ratio (1.0-2.8) Lipase (23-300) U/L SARS-CoV-2 (PCR) Negative (Negative) Imaging Data Chest x-ray: My Impression: Close Vascular Ultrasound (Signed) Lisa Salmon - 09/18/21 Chest X-Ray (Signed) Tan Banegas - 09/18/21 Chest X-Ray (Signed) Tan Banegas - 09/13/21 Chest X-Ray (Signed) Ezra Gutierrez - 08/14/21 Injection Lumbar, Sacrum (Signed) Sergio Cuba - 07/15/21 Lumbar Spine MRI (Signed) Jovan Holcomb - 04/20/21 Hip MRI (Signed) Clyde Woo - 04/20/21 Lumbar Spine X-Ray (Signed) Espinoza Westbrook - 04/13/21 Hip X-Ray (Signed) Julian Magallanes - 04/13/21 Abdomen/Pelvis CT (Signed) Clyde Woo - 01/05/21 Lumbar Spine MRI (Signed) Sergio Cuba - 12/31/20 Radiology Report (Cancelled) Jorge L Lu - 12/21/20 Myocardial Perfusion Scan Nuc Med (Signed) Jorge L Lu - 12/21/20 Echocardiogram Ultrasound (Signed) Harrison Williamson - 12/21/20 Ribs X-Ray (Signed) Espinoza Westbrook - 10/21/20 Lumbar Spine X-Ray (Signed) Espinoza Westbrook - 10/21/[address] (Signed) Espinoza Westbrook - 10/21/20 Chest X-Ray (Signed) Stan Vann - 03/19/20 Foot X-Ray (Signed) Joe Seymour - 12/30/[address] (Signed) Stan Vann - 10/30/19 Telemetry Strips 10/30/19 Injection Lumbar, Sacrum (Signed) Stan Vann - 08/20/19 Facet Joint Injection X-Ray (Signed) Stan Vann - 04/05/19 Injection Lumbar, Sacrum (Signed) Amari Palma - 02/19/19 Facet Joint Injection X-Ray (Signed) Amari Palma - 12/18/18 Renal Ultrasound (Signed) Stan Vann - 07/30/18 Telemetry Strips 04/06/18 Foot X-Ray (Signed) Stan Vann - 03/28/18 Injection Lumbar, Sacrum (Signed) LionJoe - 11/28/17 Telemetry Strips 02/07/17 Launch?Image [address] [address] XRay Report Signed Patient: Clementina Roque MR#: [id number] : 1940 Acct:[id number] Age/Sex: 81 / F Date of Service: 09/18/21 Loc: ED Accession Number: [id number] ?? Procedure: XR chest 1V Ordering Provider: Radha Ramirez D.O. PROCEDURE:? XR CHEST 1V ? INDICATIONS:? chest pain ? TECHNIQUE:? One view of the chest was acquired.? ? COMPARISON:? [facility], CR, XR CHEST 2V, 09/13/2021, 12:59. ? FINDINGS:? ? Surgical changes and devices:? None.? ? Lungs and pleura:? There is pulmonary vascular congestion.? No pneumothorax or pleural effusion. ? Mediastinum:? Mediastinal contours appear normal.? Heart size is enlarged.? ? Bones and chest wall:? No suspicious bony lesions.? Overlying soft tissues appear unremarkable.? ? IMPRESSION: ? Cardiomegaly and pulmonary vascular congestion consistent with mild CHF.? ? ? Dictated by: Tan Banegas M.D. on 09/18/2021 at 15:27 ? ? Approved by: Tan Banegas M.D. on 09/18/2021 at 15:29?? US - DVT: Radiologist's Impresson: [address] [address] Ultrasound Report Signed Patient: Clementina Roque MR#: [id number] : 1940 Acct:[id number] Age/Sex: 81 / F Date of Service: 09/18/21 Loc: ED Accession Number: [id number] ?? Procedure: US periph venous low extrem rt Ordering Provider: Radha Ramirez D.O. PROCEDURE:? US PERIPH VENOUS LOW EXTREM RT ? INDICATIONS:? left leg swelling, pain, after HD. ? TECHNIQUE:? Real-time imaging, as well as color and pulse Doppler interrogation, were performed of the lower extremity deep veins from the inguinal ligament to the popliteal fossa.? ? COMPARISON:? None. ? FINDINGS:? The common femoral, femoral and popliteal veins are normally compressible, and free of intraluminal thrombus.? Color and pulse Doppler demonstrate normal phasic intraluminal flow.? There is normal augmentation response to distal compression maneuver. ? ? IMPRESSION:? No deep venous thrombosis. ? ? Dictated by: Lisa Salmon M.D. on 09/18/2021 at 18:18 ? ? Approved by: Lisa Salmon M.D. on 09/18/2021 at 18:18?? ECG Data Attestation: I personally reviewed and interpreted this ECG as follows: Interpretation: AFib with RVR rate of 114, QRS of 92 QTC of 509. No acute ST elevation depression noted. EKG 2 AFib with RVR, rate of 104 QRS 84 QTC 481. PVC but no other acute changes appreciated. MDM Narrative Medical decision making narrative: This is an 81-year-old female who comes in with AFib RVR but typically in the 105 range to 100 range. She has been hypertensive she has not missed any of her regular doses she had almost complete dialysis today she did recently have a COVID infection was hospitalized and had her Coumadin stopped at that time. She has not been anticoagulated for at least 2 weeks and was restarted last night. She is higher risk for blood clots D-dimer is significantly elevated. She had acute swelling of her right lower extremity which is negative for DVT. Chest x-ray shows possible pulmonary edema. Labs show chronic but stable anemia, white count of 13, sodium 131 with low potassium, creatinine is 2.25 better than her normal, troponins are indeterminate x2 in trending down words. Patient is COVID negative today. Patient had improvement of heart rate with metoprolol IV but minimal change to her blood pressure. She is given her home medications as well. Patient is sent for CT PE angio and signed out to Dr. Kinney while awaiting this. Patient notes she is on dialysis but has been told that her renal function will never return and she is on lifelong dialysis. Dr Kinney: Received turned over. Reviewed patient's history and physical exam and labs and radiologic studies performed up to this point. The CTA of her chest shows no signs of pulmonary embolism. I did discuss this with the patient. Discussed her elevated blood pressure. States that her blood pressure has been elevated like this since she was last admitted to [facility]. She stated that she was on a blood pressure medicine that she does not remember the name of however during that visit they switched her to metoprolol. She has been taking this as directed and she states that her blood pressures have been elevated. They have always been elevated when she goes to dialysis. She states she would like to go home. We will hold on making any changes to her medicines for now and have her talk with both her senior payroll manager and also her writer to discuss any potential changes. We discussed return precautions and follow-up instructions. She expressed understanding and agreement this plan. <Jose Kinney, DO - Last Filed: 09/19/21 00:31> Lab Data Labs: Lab Results 09/18/21 09/18/21 09/18/21 Range/Units 15:14 15:14 15:14 WBC 13.9 H (4.5-11.0) X10^3/uL RBC 2.91 L (4.0-5.2) X10^6/uL Hgb 9.6 L (12.0-16.0) g/dL Hct 29.6 L (36-46) % MCV 101.9 H (80-100) fL MCH 33.0 (26-34) PG MCHC 32.4 (30-36) % RDW 17.4 H (11.6-14.8) % Plt Count 195 (150-400) X10^3/uL Neut % (Auto) 82.6 H (50-75) % Lymph % (Auto) 11.5 L (25-40) % [place] % (Auto) 5.4 (3-14) % Eos % (Auto) 0.1 L (2-4) % Baso % (Auto) 0.4 (0-2) % Neut # (Auto) 33390 H (3264-5346) /uL Lymph # (Auto) 1600 (2924-4017) /uL [place] # (Auto) 700 (0-900) /uL Eos # (Auto) 0 (0-450) /uL Baso # (Auto) 100 (0-100) /uL PT 13.8 H (10.1-12.7) SECONDS INR 1.2 (0.9-1.3) APTT 27 (26.4-36.2) SECONDS D-Dimer (<230) ng/mL Sodium 131 L (137-145) mmol/L Potassium 3.3 L (3.4-5.1) mmol/L Chloride 95 L (98-107) mmol/L Carbon Dioxide 28 (22-32) mmol/L BUN 20 H (7-17) mg/dL Creatinine 2.25 H (0.52-1.04) mg/dL Estimated GFR 22 L (>60) mL/min BUN/Creatinine Ratio 8.9 (6-22) Glucose 171 H (80-110) mg/dL Calcium 8.5 (8.4-10.2) mg/dL Magnesium 1.8 (1.6-2.3) mg/dL Total Bilirubin 1.2 (0.2-1.3) mg/dL AST 51 H (14-36) IU/L ALT 32 (<35) IU/L Alkaline Phosphatase 64 (38-126) U/L Total Creatine Kinase 96 (30-135) U/L CK-MB (CK-2) TNP CK-MB (CK-2) Rel Index TNP Troponin I 0.096 H (0.01-0.034) ng/mL Total Protein 6.6 (6.3-8.2) g/dL Albumin 3.9 (3.5-5.0) g/dL Globulin 2.7 (1.7-4.1) g/dL Albumin/Globulin Ratio 1.4 (1.0-2.8) Lipase 181 (23-300) U/L SARS-CoV-2 (PCR) (Negative) 09/18/21 09/18/21 09/18/21 Range/Units 15:14 16:13 17:20 WBC (4.5-11.0) X10^3/uL RBC (4.0-5.2) X10^6/uL Hgb (12.0-16.0) g/dL Hct (36-46) % MCV (80-100) fL MCH (26-34) PG MCHC (30-36) % RDW (11.6-14.8) % Plt Count (150-400) X10^3/uL Neut % (Auto) (50-75) % Lymph % (Auto) (25-40) % [place] % (Auto) (3-14) % Eos % (Auto) (2-4) % Baso % (Auto) (0-2) % Neut # (Auto) (5324-9629) /uL Lymph # (Auto) (6939-2869) /uL [place] # (Auto) (0-900) /uL Eos # (Auto) (0-450) /uL Baso # (Auto) (0-100) /uL PT (10.1-12.7) SECONDS INR (0.9-1.3) APTT (26.4-36.2) SECONDS D-Dimer 1733 H (<230) ng/mL Sodium (137-145) mmol/L Potassium (3.4-5.1) mmol/L Chloride (98-107) mmol/L Carbon Dioxide (22-32) mmol/L BUN (7-17) mg/dL Creatinine (0.52-1.04) mg/dL Estimated GFR (>60) mL/min BUN/Creatinine Ratio (6-22) Glucose (80-110) mg/dL Calcium (8.4-10.2) mg/dL Magnesium (1.6-2.3) mg/dL Total Bilirubin (0.2-1.3) mg/dL AST (14-36) IU/L ALT (<35) IU/L Alkaline Phosphatase (38-126) U/L Total Creatine Kinase (30-135) U/L CK-MB (CK-2) CK-MB (CK-2) Rel Index Troponin I 0.083 H (0.01-0.034) ng/mL Total Protein (6.3-8.2) g/dL Albumin (3.5-5.0) g/dL Globulin (1.7-4.1) g/dL Albumin/Globulin Ratio (1.0-2.8) Lipase (23-300) U/L SARS-CoV-2 (PCR) Negative (Negative) Imaging Data CT scan - chest: Radiologist's Impresson: [address] [address] [address] Scan Report Signed Patient: Clementina Roque MR#: [id number] : 1940 Acct:[id number] Age/Sex: 81 / F Date of Service: 09/18/21 Loc: ED Accession Number: [id number] ?? Procedure: CT angio chest PE protocol Ordering Provider: Radha Ramirez D.O. PROCEDURE:? CT ANGIO CHEST PE PROTOCOL ? INDICATIONS:? sob, ? TECHNIQUE:? After the administration of intravenous contrast, 2 mm thick sections acquired from the pulmonary apices to the posterior costophrenic angles.? 3-dimensional maximum intensity projection (MIP) coronal and sagittal reformats were then acquired through the thorax.? For radiation dose reduction, the following was used:? automated exposure control, adjustment of mA and/or kV according to patient size.? ? COMPARISON:? [facility], CT, CT KIDNEY URETER BLADDER (KUB), 01/05/2021, 12:41.? [facility], CT, PE STUDY (CTA CHEST), 03/18/2012, 0:24.? [facility], CT, CT CHEST WITHOUT CONTRAST, 09/05/2021, 8:20. ? FINDINGS:? Image quality:? Excellent.? ? Pulmonary arteries:? Pulmonary arteries are normal in size, and demonstrate no intraluminal filling defects to suggest central pulmonary embolism.? ? Lungs and pleura:? 6 mm right lower lobe nodules present stable since 2012. No pleural effusions or pneumothorax.? Minimal dependent changes are present the bases.? Central and peripheral airways are patent.? ? Mediastinum:? Heart size is enlarged, without pericardial effusion.? No mediastinal or hilar adenopathy.? Thoracic aorta is normal in caliber and enhancement.? Esophagus is normal in caliber, without hiatal hernia.? ? Bones and chest wall:? No suspicious bony lesions.? Ribs and thoracic spine appear intact throughout.? Thyroid gland is.? No axillary or supraclavicular adenopathy.? ? Abdomen:? 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 Otherwise, visualized upper abdominal solid organs appear normal in the early arterial phase of enhancement.? ? IMPRESSION:? ? No pulmonary embolism. ? No consolidations.? ? ? Dictated by: Lisa Salmon M.D. on 09/18/2021 at 19:57 ? ? Approved by: Lisa Salmon M.D. on 09/18/2021 at 20:00? MDM Narrative Medical decision making narrative: This is an 81-year-old female who comes in with AFib RVR but typically in the 105 range to 100 range. She has been hypertensive she has not missed any of her regular doses she had almost complete dialysis today she did recently have a COVID infection was hospitalized and had her Coumadin stopped at that time. She has not been anticoagulated for at least 2 weeks and was restarted last night. She is higher risk for blood clots D-dimer is significantly elevated. She had acute swelling of her right lower extremity which is negative for DVT. Chest x-ray shows possible pulmonary edema. Labs show chronic but stable anemia, white count of 13, sodium 131 with low potassium, creatinine is 2.25 better than her normal, troponins are indeterminate x2 in trending down words. Patient is COVID negative today. Patient had improvement of heart rate with metoprolol IV but minimal change to her blood pressure. She is given her home medications as well. Patient is sent for CT PE angio and signed out to Dr. Kinney while awaiting this. Dr Kinney: Received turned over. Reviewed patient's history and physical exam and labs and radiologic studies performed up to this point. The CTA of her chest shows no signs of pulmonary embolism. I did discuss this with the patient. Discussed her elevated blood pressure. States that her blood pressure has been elevated like this since she was last admitted to [facility]. She stated that she was on a blood pressure medicine that she does not remember the name of however during that visit they switched her to metoprolol. She has been taking this as directed and she states that her blood pressures have been elevated. They have always been elevated when she goes to dialysis. She states she would like to go home. We will hold on making any changes to her medicines for now and have her talk with both her senior payroll manager and also her writer to discuss any potential changes. We discussed return precautions and follow-up instructions. She expressed understanding and agreement this plan. Discharge Plan Departure Patient Disposition: Home Clinical Impression: Atrial fibrillation with RVR, Hypertension Instructions: Essential Hypertension Activity Restrictions/Additional Instructions: Continue to take all of your medications as directed. 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 Keep all of your dialysis appointments. Return to the emergency department for any new or worsening symptoms. Prescriptions: No Action furosemide 20 mg tablet 20 mg PO QDAY PRN (Reason: Edema) Qty: 30 melatonin 5 mg capsule 3 mg PO PRN PRN (Reason: Insomnia) metoprolol succinate 100 mg tablet extended release 24 hr 1 tab PO BID Label Comments: Take 1 tablet by mouth twice a day [id number] Tablet 1 tab PO DAILY fluticasone propionate 50 mcg/actuation spray,suspension 1 spray intranasal BID PRN (Reason: nasal congestion) Qty: 16 0RF Rx Instructions: administer into each nostril guaifenesin 400 mg tablet 400 mg PO TID PRN (Reason: cough) Qty: 20 0RF allopurinol 100 mg tablet 300 mg PO DAILY biotin 2,500 mcg capsule 5 mg PO DAILY warfarin 5 mg tablet 5 mg PO DAILY prednisone 5 mg tablet 10 mg PO DAILY levothyroxine 25 mcg tablet 50 mcg PO DAILY dorzolamide-timolol 22.3-6.8 mg/mL drops 1 drop EYE-BOTH BID Alphagan P 0.1 % drops 1 drp EYE-BOTH BID Referrals: Jorge L Dietz MD [Primary Care Provider] - Visit Report Forms: Patient Portal/API
[2021-09-18 16:37] LABS: COVID19 -Nasal RAPID Negative (Negative)
--- NOTE | 2021-09-18 17:18 | DI.US.S_ITS ---
PROCEDURE: US PERIPH VENOUS LOW EXTREM RT INDICATIONS: left leg swelling, pain, after HD. TECHNIQUE: Real-time imaging, as well as color and pulse Doppler interrogation, were performed of the lower extremity deep veins from the inguinal ligament to the popliteal fossa. COMPARISON: None. FINDINGS: The common femoral, femoral and popliteal veins are normally compressible, and free of intraluminal thrombus. Color and pulse Doppler demonstrate normal phasic intraluminal flow. There is normal augmentation response to distal compression maneuver. IMPRESSION: No deep venous thrombosis. Dictated by: Lisa Salmon M.D. on 09/18/2021 at 18:18 Approved by: Lisa Salmon M.D. on 09/18/2021 at 18:18
[2021-09-18] MEDS: METOPROLOL TARTRATE 5 MG/5 ML INJ IV ×3 (17:35→18:18)
[2021-09-18 17:56] LABS: D Dimer 1733 ng/mL (<230)
[2021-09-18 18:00] LABS: Troponin I 0.083 ng/mL (0.01-0.034)
[2021-09-18 18:01] LABS: INR 1.2 (0.9-1.3); Prothrombin Time 13.8 SECONDS (10.1-12.7)
[2021-09-18 18:04] LABS: PTT Partial Thromboplastin Tim 27 SECONDS (26.4-36.2)
--- NOTE | 2021-09-18 18:35 | PC.NURSE ---
pt continues with elevated BP. DR Ramirez notified and will continue to monitor
--- NOTE | 2021-09-18 18:54 | DI.CT.S_ITS ---
PROCEDURE: CT ANGIO CHEST PE PROTOCOL INDICATIONS: sob, TECHNIQUE: After the administration of intravenous contrast, 2 mm thick sections acquired from the pulmonary apices to the posterior costophrenic angles. 3-dimensional maximum intensity projection (MIP) coronal and sagittal reformats were then acquired through the thorax. For radiation dose reduction, the following was used: automated exposure control, adjustment of mA and/or kV according to patient size. COMPARISON: [facility], CT, CT KIDNEY URETER BLADDER (KUB), 01/05/2021, 12:41. [facility], CT, PE STUDY (CTA CHEST), 03/18/2012, 0:24. [facility], CT, CT CHEST WITHOUT CONTRAST, 09/05/2021, 8:20. FINDINGS: Image quality: Excellent. Pulmonary arteries: Pulmonary arteries are normal in size, and demonstrate no intraluminal filling defects to suggest central pulmonary embolism. Lungs and pleura: 6 mm right lower lobe nodules present stable since 2012. No pleural effusions or pneumothorax. Minimal dependent changes are present the bases. Central and peripheral airways are patent. Mediastinum: Heart size is enlarged, without pericardial effusion. No mediastinal or hilar adenopathy. Thoracic aorta is normal in caliber and enhancement. Esophagus is normal in caliber, without hiatal hernia. Bones and chest wall: No suspicious bony lesions. Ribs and thoracic spine appear intact throughout. Thyroid gland is. No axillary or supraclavicular adenopathy. 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 Otherwise, visualized upper abdominal solid organs appear normal in the early arterial phase of enhancement. IMPRESSION: No pulmonary embolism. No consolidations. Dictated by: Lisa Salmon M.D. on 09/18/2021 at 19:57 Approved by: Lisa Salmon M.D. on 09/18/2021 at 20:00
[2021-09-18] MEDS: METOPROLOL ER 50 MG TABLET 100 MG PO (19:35)
== END 2021-09-18 20:57 | disposition home or self-care (01) ==
PROVIDERS: Emergency Medicine; Emergency Provider Emergency Medicine; Family Provider Family Medicine; PCP Family Medicine
DX: I48.20 Chronic atrial fibrillation, unspecified (principal); R07.9 Chest pain, unspecified; Z79.01 Long term (current) use of anticoagulants; I10 Essential (primary) hypertension; R79.89 Other specified abnormal findings of blood chemistry; Z20.822 Contact with and (suspected) exposure to COVID-19
CPT/HCPCS: 36415; 71045; 71275; 80053; 82550; 83690; 83735; 84484; 85025; 85379; 85610; 85730; 87635; 93005; 93010; 93971; 96374; 96376; 99284; C9803; Q9967

== ENCOUNTER 2021-10-12 19:25 | Emergency (ER) | payer MEDICARE, OTHER, SELFPAY ==
[2021-10-12] VITALS (30 sets, daily range): BP systolic 133–176; BP diastolic 66–129; PULSE 70–135; RESP 18–40; TEMP 36.9; O2SAT 94–99
--- NOTE | 2021-10-12 19:27 | ED.CHESTPAIN ---
HPI - Chest Pain <Ej Hinkle DO - Last Filed: 10/16/21 02:43> General Chief Complaint: Arrhythmia/Palpitations Stated Complaint: tachycardia Time Seen by Provider: 10/12/21 19:25 History of Present Illness HPI narrative: 81F nonsmoker with history of HTN, COVID, end stage renal with HD on ,, presents from dialysis after developing a rapid AFib between the 120s and 170s which caused her to become short of breath and developed some chest pressure. Dialysis was stopped and she was sent here for evaluation. She states that she goes in and out of AFib frequently and is not terribly compliant with her Coumadin. It is noted in our records that she was subtherapeutic just a few weeks ago. She denies nausea, vomiting or diarrhea Related Data Home Medications Medication Instructions Recorded Confirmed dorzolamide 22.3 mg-timolol 6.8 1 drop EYE-BOTH BID 10/12/17 10/13/21 mg/mL eye drops biotin 2,500 mcg capsule 5 mg PO DAILY 03/04/19 08/14/21 allopurinol 100 mg tablet 300 mg PO DAILY 09/25/19 10/13/21 furosemide 20 mg tablet 20 mg PO QDAY PRN Edema #30 tabs 09/25/19 08/14/21 warfarin 5 mg tablet 5 mg PO DAILY 12/16/20 10/13/21 brimonidine 0.1 % eye drops 1 drp EYE-BOTH BID 06/14/21 10/13/21 (Alphagan P) levothyroxine 25 mcg tablet 50 mcg PO DAILY 06/14/21 10/13/21 melatonin 5 mg capsule 3 mg PO PRN PRN Insomnia 06/14/21 08/14/21 prednisone 5 mg tablet 10 mg PO DAILY 06/14/21 10/13/21 [id number] tablet 1 tab PO DAILY 08/14/21 08/14/21 metoprolol succinate 100 mg 1 tab PO BID 09/18/21 09/18/21 tablet,extended release 24 hr carvedilol 25 mg tablet 25 mg PO BID 10/13/21 10/13/21 losartan 100 mg PO DAILY 10/13/21 10/13/21 Previous Rx's Medication Instructions Recorded guaifenesin 400 mg tablet 400 mg PO TID PRN cough #20 tabs 08/14/21 Allergies Allergy/AdvReac Type Severity Reaction Status Date / Time codeine [CODEINE] Allergy Severe ANAPHYLACTI Verified 12/16/20 10:09 C peanut [PEANUT] Allergy Severe ANAPHYLACTI Verified 12/16/20 10:09 C propofol AdvReac hallucinations, Verified 12/16/20 10:09 confusion Review of Systems <Ej Hinkle DO - Last Filed: 10/16/21 02:43> Review of Systems Narrative: GENERAL: Denies chills, fatigue, malaise, fever, sweats. HEENT: Denies sinus pain, ear pain, sore throat, difficulty swallowing, dizziness. RESPIRATORY: Denies dyspnea, cough, wheezing, hemoptysis, sputum. CARDIOVASCULAR: See HPI GASTROINTESTINAL: Denies nausea, vomiting, abdominal pain, diarrhea, constipation, melena. : Denies dysuria, frequency, incontinence, hematuria, urinary retention. MUSCULOSKELETAL: denies weakness, joint pain, or bony pain SKIN: Denies rash, skin lesions, or other NEUROLOGIC: Denies weakness, headache, numbness, change in speech, confusion, seizures, incoordination. PSYCHIATRIC: No concerning psychosocial issues. 12 point review of systems is negative except for those stated above Patient History <Ej Hinkle DO - Last Filed: 10/16/21 02:43> Medical History (Updated 10/13/21 @ 13:37 by Tigre Chilel MD) Atrial fibrillation Chronic anticoagulation Foraminal stenosis of lumbar region Gastroesophageal reflux disease Gout Hypertension Surgical History H/O tubal ligation History of cardiac radiofrequency ablation Hx of cholecystectomy Hx of tonsillectomy Family History Mother Lung cancer Social History Smoking Status: Never smoker Smoking Status: Never smoker Substance Use Type: does not use Exam <Ej Hinkle DO - Last Filed: 10/16/21 02:43> Narrative Exam Narrative: GENERAL: [81] year old patient appears stated age. Well-developed patient, in mild distress. HEAD: Atraumatic. Normocephalic. EYES: Pupils equal round and reactive. Extraocular motions intact. No scleral icterus. No injection or drainage. ENT: Nose without bleeding, purulent drainage. Throat without erythema, tonsillar hypertrophy or exudate. Airway patent. NECK: Trachea midline. Non tender CARDIOVASCULAR: Tachycardic and irregular rhythm without murmurs, gallops, or rubs. RESPIRATORY: Clear to auscultation. Breath sounds equal bilaterally. No wheezes, rales, or rhonchi. GASTROINTESTINAL: Abdomen soft, non-tender, nondistended. EXTREMITIES: No edema or joint tenderness. BACK: Nontender without deformity or crepitance. No flank tenderness. NEURO: AOx3. SKIN: No rash or erythema of visible areas Initial Vital Signs Initial Vital Signs: Vital Signs Pulse Oximetry 96 10/12/21 19:24 <Tigre Chilel MD - Last Filed: 10/19/21 03:42> Initial Vital Signs Initial Vital Signs: Vital Signs Pulse Oximetry 96 10/12/21 19:24 <Radha Ramirez, DO - Last Filed: 10/14/21 21:19> Initial Vital Signs Initial Vital Signs: Vital Signs Pulse Oximetry 96 10/12/21 19:24 <Tahira Doherty DO - Last Filed: 10/16/21 07:44> Initial Vital Signs Initial Vital Signs: Vital Signs Pulse Oximetry 96 10/12/21 19:24 Course <Ej Hinkle, DO - Last Filed: 10/16/21 02:43> Course Course Narrative: October 13, 2021 at 7:00 a.m.. Sign out from Dr. Hinkle, he has spoken with cardiology services. Patient is on amiodarone drip protocol. This is for 24 hours. Patient just started for 2nd portion of the amiodarone protocol. Patient is not candidate for cardioversion. Patient is on warfarin. Patient had dialysis yesterday. She is on dialysis Monday and Saturdays. Patient is aware she will be staying overnight unless she does convert. 7:15 a.m.. Spoke with patient introduced myself. Patient has no complaints at this time does does need to go to the bathroom. Patient in no distress. No chest pain or dyspnea. 6:00 p.m.. Sign out to Dr. Hinkle, no new changes during course of stay. Patient remains on amiodarone protocol. We did contact [facility] earlier today and she is on waiting list there. No ICU beds here. Home medications have been ordered. Morning labs to be done [1800] (Manan) Patient received in sign out from [Getachew]. Patient continues to do well, still on amiodarone protocol, continues to be largely asymptomatic with heart rates in the 80s. 0200 -amiodarone drip has completed, patient will now require 400 mg p.o. b.i.d. x7 days, if she remains this clinically stable she is appropriate for discharge and will be able to make it to her dialysis as an outpatient. Orders Ordered: Discontinued Medications Allopurinol (Allopurinol 300 Mg Tablet) 300 mg PO DAILY [facility] Last Admin: 10/15/21 10:44 Dose: 300 mg Documented By: Admin: 10/14/21 11:53 Dose: 300 mg Documented By: Admin: 10/13/21 09:51 Dose: 300 mg Documented By: BJ Amiodarone HCl (Amiodarone 200 Mg Tablet) 400 mg PO NOW ONE Stop: 10/14/21 03:47 Last Admin: 10/14/21 05:22 Dose: 400 mg Documented By: FRANKIE Amiodarone HCl (Amiodarone 200 Mg Tablet) 400 mg PO BIDWM [facility] Last Admin: 10/15/21 17:17 Dose: 400 mg Documented By: Admin: 10/15/21 10:45 Dose: 400 mg Documented By: Admin: 10/14/21 19:06 Dose: 400 mg Documented By: OTO Brimonidine Tartrate (Brimonidine 0.2% Ophth 5 Ml) 1 drops EYE-BOTH BID [facility] Last Admin: 10/15/21 21:59 Dose: 1 drops Documented By: Admin: 10/15/21 10:46 Dose: 1 drops Documented By: Admin: 10/14/21 21:24 Dose: 1 drops Documented By: Admin: 10/14/21 11:27 Dose: 1 drops Documented By: Admin: 10/13/21 21:45 Dose: 1 drops Documented By: Admin: 10/13/21 09:50 Dose: 1 drops Documented By: BJ Carvedilol (Carvedilol 12.5 Mg Tablet) 25 mg PO NOW ONE Stop: 10/14/21 23:27 Last Admin: 10/15/21 00:35 Dose: 25 mg Documented By: NR Carvedilol (Carvedilol 12.5 Mg Tablet) 25 mg PO BID [facility] Last Admin: 10/15/21 21:08 Dose: 25 mg Documented By: Admin: 10/15/21 10:44 Dose: 25 mg Documented By: OUSMANE Diltiazem HCl (Diltiazem 5 Mg/Ml Sdv) 10 mg IV NOW ONE Stop: 10/12/21 20:46 Last Admin: 10/12/21 20:53 Dose: 10 mg Documented By: FRANKIE Dorzolamide/Timolol (Dorzolamide/Timolol Ophth 10 Ml) 1 drops EYE-BOTH BID [facility] Last Admin: 10/15/21 21:08 Dose: 1 drops Documented By: Admin: 10/15/21 10:46 Dose: 1 drops Documented By: Admin: 10/14/21 21:16 Dose: 1 drops Documented By: Admin: 10/14/21 11:28 Dose: 1 drops Documented By: Admin: 10/13/21 21:45 Dose: 1 drops Documented By: Admin: 10/13/21 09:50 Dose: 1 drops Documented By: BJ Famotidine (Famotidine 20 Mg/2 Ml Vial) 20 mg IV NOW [facility] Last Admin: 10/15/21 11:14 Dose: 20 mg Documented By: JASWINDER Furosemide (Furosemide 20 Mg Tablet) 20 mg PO BID PRN PRN Reason: Edema Last Admin: 10/13/21 09:51 Dose: 20 mg Documented By: BJ DILTIAZEM (Diltiazem 125 Mg/125 Ml-D5w) 125 mg in 125 mls @ 5 mls/hr IV TITRATE [facility]; Protocol Last Titration: 10/14/21 15:37 Dose: 0 mg/hr, 0 mls/hr Documented By: Titration: 10/12/21 22:46 Dose: 0 mg/hr, 0 mls/hr Documented By: Titration: 10/12/21 21:21 Dose: 10 mg/hr, 10 mls/hr Documented By: Admin: 10/12/21 20:54 Dose: 5 mg/hr, 5 mls/hr Documented By: FRANKIE Amiodarone HCl/Dextrose (Nexterone) 150 mg in 100 mls @ 600 mls/hr IV NOW ONE; Protocol Stop: 10/13/21 02:06 Last Infusion: 10/13/21 02:21 Dose: 0 mls/hr Documented By: Admin: 10/13/21 02:10 Dose: 600 mls/hr Documented By: FRANKIE Amiodarone HCl/Dextrose (Nexterone) 360 mg in 200 mls @ 33.333 mls/hr IV NOW ONE; Protocol Stop: 10/13/21 07:56 Last Titration: 10/13/21 08:20 Dose: 0 mls/hr, 0 mls/hr Documented By: Admin: 10/13/21 02:22 Dose: 33.33 mls/hr, 33.33 mls/hr Documented By: FRANKIE Amiodarone HCl/Dextrose (Nexterone) 540 mg in 300 mls @ 16.7 mls/hr IV CONT [facility]; Protocol Stop: 10/14/21 01:55 Last Titration: 10/14/21 02:29 Dose: 0 mls/hr, 0 mls/hr Documented By: Admin: 10/13/21 08:17 Dose: 16.7 mls/hr, 16.7 mls/hr Documented By: BJ Levothyroxine Sodium (Levothyroxine 50 Mcg Tablet) 50 mcg PO DAILY@0600 [facility] Last Admin: 10/15/21 08:40 Dose: 50 mcg Documented By: Admin: 10/14/21 11:27 Dose: 50 mcg Documented By: ALETHA Prednisone (Prednisone 20 Mg Tablet) 10 mg PO DAILY [facility] Last Admin: 10/15/21 08:40 Dose: 10 mg Documented By: Admin: 10/14/21 11:53 Dose: 10 mg Documented By: Admin: 10/13/21 09:50 Dose: 10 mg Documented By: BJ Prednisone (Prednisone 20 Mg Tablet) 20 mg PO NOW ONE Stop: 10/15/21 10:52 Last Admin: 10/15/21 11:14 Dose: 20 mg Documented By: JASWINDER Warfarin Sodium (Warfarin 5 Mg Tablet) 5 mg PO DAILY@1700 [facility] Last Admin: 10/15/21 17:17 Dose: 5 mg Documented By: Admin: 10/14/21 19:02 Dose: 5 mg Documented By: Admin: 10/13/21 17:05 Dose: 5 mg Documented By: SB Reevaluation(s) Reevaluation #1: Patient is a poor candidate for cardioversion given her subtherapeutic INR and multiple episodes of atrial fibrillation. She is no longer taking metoprolol and had been switched over to carvedilol relatively recently and states she has been taking her medications as directed. Cardizem push followed by drip ordered while reaching out to cardiology Reevaluation #2: 0110 -patient continues to be in atrial fibrillation, however rate continues to be 70s to 90s, patient is resting and asymptomatic. Holding on amiodarone for now Reevaluation #3: patient tolerating amnio quite well, feels great, heart rate in the 70s to 80s. Consultations Consultation #1: Dr. Barr agrees that patient is a poor candidate for cardioversion and recommends loading patient with amiodarone. and doing typical 24 hour load then converting to orals with 400mg BID x7 days, then 400mg daily x7 days, then 200mg daily x7 days with close follow up with Dr. Williamson Vital Signs Vital signs: Vital Signs - 8 hr 10/15/21 21:08 Pulse Rate 88 Blood Pressure 177/85 H <Tigre Chilel MD - Last Filed: 10/19/21 03:42> Course Course Narrative: October 13, 2021 at 7:00 a.m.. Sign out from Dr. Hinkle, he has spoken with cardiology services. Patient is on amiodarone drip protocol. This is for 24 hours. Patient just started for 2nd portion of the amiodarone protocol. Patient is not candidate for cardioversion. Patient is on warfarin. Patient had dialysis yesterday. She is on dialysis Monday and Saturdays. Patient is aware she will be staying overnight unless she does convert. 7:15 a.m.. Spoke with patient introduced myself. Patient has no complaints at this time does does need to go to the bathroom. Patient in no distress. No chest pain or dyspnea. 6:00 p.m.. Sign out to Dr. Hiknle, no new changes during course of stay. Patient remains on amiodarone protocol. We did contact [facility] earlier today and she is on waiting list there. No ICU beds here. Home medications have been ordered. Morning labs to be done Orders Ordered: Discontinued Medications Allopurinol (Allopurinol 300 Mg Tablet) 300 mg PO DAILY [facility] Last Admin: 10/15/21 10:44 Dose: 300 mg Documented By: Admin: 10/14/21 11:53 Dose: 300 mg Documented By: Admin: 10/13/21 09:51 Dose: 300 mg Documented By: BJ Amiodarone HCl (Amiodarone 200 Mg Tablet) 400 mg PO NOW ONE Stop: 10/14/21 03:47 Last Admin: 10/14/21 05:22 Dose: 400 mg Documented By: FRANKIE [facility]iodarone HCl ([facility] 200 Mg [facility]) [facility] [place] Admin: 10/15/21 17:17 Dose: 400 mg Documented By: Admin: 10/15/21 10:45 Dose: 400 mg Documented By: Admin: 10/14/21 19:06 Dose: 400 mg Documented By: TOO Brimonidine Tartrate (Brimonidine 0.2% Ophth 5 Ml) 1 drops EYE-BOTH BID [facility] Last Admin: 10/15/21 21:59 Dose: 1 drops Documented By: Admin: 10/15/21 10:46 Dose: 1 drops Documented By: Admin: 10/14/21 21:24 Dose: 1 drops Documented By: Admin: 10/14/21 11:27 Dose: 1 drops Documented By: Admin: 10/13/21 21:45 Dose: 1 drops Documented By: Admin: 10/13/21 09:50 Dose: 1 drops Documented By: BJ Carvedilol (Carvedilol 12.5 Mg Tablet) 25 mg PO NOW ONE Stop: 10/14/21 23:27 Last Admin: 10/15/21 00:35 Dose: 25 mg Documented By: MALIKA Carvedilol (Carvedilol 12.5 Mg Tablet) 25 mg PO BID [facility] Last Admin: 10/15/21 21:08 Dose: 25 mg Documented By: Admin: 10/15/21 10:44 Dose: 25 mg Documented By: OUSMANE Diltiazem HCl (Diltiazem 5 Mg/Ml Sdv) 10 mg IV NOW ONE Stop: 10/12/21 20:46 Last Admin: 10/12/21 20:53 Dose: 10 mg Documented By: FRANKIE Dorzolamide/Timolol (Dorzolamide/Timolol Ophth 10 Ml) 1 drops EYE-BOTH BID [facility] Last Admin: 10/15/21 21:08 Dose: 1 drops Documented By: Admin: 10/15/21 10:46 Dose: 1 drops Documented By: Admin: 10/14/21 21:16 Dose: 1 drops Documented By: Admin: 10/14/21 11:28 Dose: 1 drops Documented By: Admin: 10/13/21 21:45 Dose: 1 drops Documented By: Admin: 10/13/21 09:50 Dose: 1 drops Documented By: BJ Famotidine (Famotidine 20 Mg/2 Ml Vial) 20 mg IV NOW [facility] Last Admin: 10/15/21 11:14 Dose: 20 mg Documented By: JASWINDER Furosemide (Furosemide 20 Mg Tablet) 20 mg PO BID PRN PRN Reason: Edema Last Admin: 10/13/21 09:51 Dose: 20 mg Documented By: BJ DILTIAZEM (Diltiazem 125 Mg/125 Ml-D5w) 125 mg in 125 mls @ 5 mls/hr IV TITRATE [facility]; Protocol Last Titration: 10/14/21 15:37 Dose: 0 mg/hr, 0 mls/hr Documented By: Titration: 10/12/21 22:46 Dose: 0 mg/hr, 0 mls/hr Documented By: Titration: 10/12/21 21:21 Dose: 10 mg/hr, 10 mls/hr Documented By: Admin: 10/12/21 20:54 Dose: 5 mg/hr, 5 mls/hr Documented By: FRANKIE Amiodarone HCl/Dextrose (Nexterone) 150 mg in 100 mls @ 600 mls/hr IV NOW ONE; Protocol Stop: 10/13/21 02:06 Last Infusion: 10/13/21 02:21 Dose: 0 mls/hr Documented By: Admin: 10/13/21 02:10 Dose: 600 mls/hr Documented By: FRANKIE Amiodarone HCl/Dextrose (Nexterone) 360 mg in 200 mls @ 33.333 mls/hr IV NOW ONE; Protocol Stop: 10/13/21 07:56 Last Titration: 10/13/21 08:20 Dose: 0 mls/hr, 0 mls/hr Documented By: Admin: 10/13/21 02:22 Dose: 33.33 mls/hr, 33.33 mls/hr Documented By: FRANKIE Amiodarone HCl/Dextrose (Nexterone) 540 mg in 300 mls @ 16.7 mls/hr IV CONT [facility]; Protocol Stop: 10/14/21 01:55 Last Titration: 10/14/21 02:29 Dose: 0 mls/hr, 0 mls/hr Documented By: Admin: 10/13/21 08:17 Dose: 16.7 mls/hr, 16.7 mls/hr Documented By: BJ Levothyroxine Sodium (Levothyroxine 50 Mcg Tablet) 50 mcg PO DAILY@0600 [facility] Last Admin: 10/15/21 08:40 Dose: 50 mcg Documented By: Admin: 10/14/21 11:27 Dose: 50 mcg Documented By: ALETHA Prednisone (Prednisone 20 Mg Tablet) 10 mg PO DAILY [facility] Last Admin: 10/15/21 08:40 Dose: 10 mg Documented By: Admin: 10/14/21 11:53 Dose: 10 mg Documented By: Admin: 10/13/21 09:50 Dose: 10 mg Documented By: BJ Prednisone (Prednisone 20 Mg Tablet) 20 mg PO NOW ONE Stop: 10/15/21 10:52 Last Admin: 10/15/21 11:14 Dose: 20 mg Documented By: JASWINDER Warfarin Sodium (Warfarin 5 Mg Tablet) 5 mg PO DAILY@1700 [facility] Last Admin: 10/15/21 17:17 Dose: 5 mg Documented By: Admin: 10/14/21 19:02 Dose: 5 mg Documented By: Admin: 10/13/21 17:05 Dose: 5 mg Documented By: SB Consultations Consultation #2: Spoke with Dr. Sapp, nephrology. He knows patient very well. Agrees to follow patient at [facility] if transfer. s/w cardio, dr [place], will follow pt at [facility] as well Time: 13:28 Vital Signs Vital signs: Vital Signs - 8 hr 10/15/21 21:08 Pulse Rate 88 Blood Pressure 177/85 H <Radha Ramirez DO - Last Filed: 10/14/21 21:19> Orders Ordered: Discontinued Medications Allopurinol (Allopurinol 300 Mg Tablet) 300 mg PO DAILY [facility] Last Admin: 10/15/21 10:44 Dose: 300 mg Documented By: Admin: 10/14/21 11:53 Dose: 300 mg Documented By: Admin: 10/13/21 09:51 Dose: 300 mg Documented By: BJ Amiodarone HCl (Amiodarone 200 Mg Tablet) 400 mg PO NOW ONE Stop: 10/14/21 03:47 Last Admin: 10/14/21 05:22 Dose: 400 mg Documented By: FRANKIE Amiodarone HCl ([facility]one 200 Mg Tablet) [facility] [place] Admin: 10/15/21 17:17 Dose: 400 mg Documented By: Admin: 10/15/21 10:45 Dose: 400 mg Documented By: Admin: 10/14/21 19:06 Dose: 400 mg Documented By: TOO Brimonidine Tartrate (Brimonidine 0.2% Ophth 5 Ml) 1 drops EYE-BOTH BID [facility] Last Admin: 10/15/21 21:59 Dose: 1 drops Documented By: Admin: 10/15/21 10:46 Dose: 1 drops Documented By: Admin: 10/14/21 21:24 Dose: 1 drops Documented By: Admin: 10/14/21 11:27 Dose: 1 drops Documented By: Admin: 10/13/21 21:45 Dose: 1 drops Documented By: Admin: 10/13/21 09:50 Dose: 1 drops Documented By: BJ Carvedilol (Carvedilol 12.5 Mg Tablet) 25 mg PO NOW ONE Stop: 10/14/21 23:27 Last Admin: 10/15/21 00:35 Dose: 25 mg Documented By: MALIKA Carvedilol (Carvedilol 12.5 Mg Tablet) 25 mg PO BID [facility] Last Admin: 10/15/21 21:08 Dose: 25 mg Documented By: Admin: 10/15/21 10:44 Dose: 25 mg Documented By: OUSMANE Diltiazem HCl (Diltiazem 5 Mg/Ml Sdv) 10 mg IV NOW ONE Stop: 10/12/21 20:46 Last Admin: 10/12/21 20:53 Dose: 10 mg Documented By: FRANKIE Dorzolamide/Timolol (Dorzolamide/Timolol Ophth 10 Ml) 1 drops EYE-BOTH BID [facility] Last Admin: 10/15/21 21:08 Dose: 1 drops Documented By: Admin: 10/15/21 10:46 Dose: 1 drops Documented By: Admin: 10/14/21 21:16 Dose: 1 drops Documented By: Admin: 10/14/21 11:28 Dose: 1 drops Documented By: Admin: 10/13/21 21:45 Dose: 1 drops Documented By: Admin: 10/13/21 09:50 Dose: 1 drops Documented By: BJ Famotidine (Famotidine 20 Mg/2 Ml Vial) 20 mg IV NOW [facility] Last Admin: 10/15/21 11:14 Dose: 20 mg Documented By: JASWINDER Furosemide (Furosemide 20 Mg Tablet) 20 mg PO BID PRN PRN Reason: Edema Last Admin: 10/13/21 09:51 Dose: 20 mg Documented By: BJ DILTIAZEM (Diltiazem 125 Mg/125 Ml-D5w) 125 mg in 125 mls @ 5 mls/hr IV TITRATE [facility]; Protocol Last Titration: 10/14/21 15:37 Dose: 0 mg/hr, 0 mls/hr Documented By: Titration: 10/12/21 22:46 Dose: 0 mg/hr, 0 mls/hr Documented By: Titration: 10/12/21 21:21 Dose: 10 mg/hr, 10 mls/hr Documented By: Admin: 10/12/21 20:54 Dose: 5 mg/hr, 5 mls/hr Documented By: FRANKIE Amiodarone HCl/Dextrose (Nexterone) 150 mg in 100 mls @ 600 mls/hr IV NOW ONE; Protocol Stop: 10/13/21 02:06 Last Infusion: 10/13/21 02:21 Dose: 0 mls/hr Documented By: Admin: 10/13/21 02:10 Dose: 600 mls/hr Documented By: FRANKIE Amiodarone HCl/Dextrose (Nexterone) 360 mg in 200 mls @ 33.333 mls/hr IV NOW ONE; Protocol Stop: 10/13/21 07:56 Last Titration: 10/13/21 08:20 Dose: 0 mls/hr, 0 mls/hr Documented By: Admin: 10/13/21 02:22 Dose: 33.33 mls/hr, 33.33 mls/hr Documented By: FRANKIE Amiodarone HCl/Dextrose (Nexterone) 540 mg in 300 mls @ 16.7 mls/hr IV CONT [facility]; Protocol Stop: 10/14/21 01:55 Last Titration: 10/14/21 02:29 Dose: 0 mls/hr, 0 mls/hr Documented By: Admin: 10/13/21 08:17 Dose: 16.7 mls/hr, 16.7 mls/hr Documented By: BJ Levothyroxine Sodium (Levothyroxine 50 Mcg Tablet) 50 mcg PO DAILY@0600 [facility] Last Admin: 10/15/21 08:40 Dose: 50 mcg Documented By: Admin: 10/14/21 11:27 Dose: 50 mcg Documented By: ALETHA Prednisone (Prednisone 20 Mg Tablet) 10 mg PO DAILY [facility] Last Admin: 10/15/21 08:40 Dose: 10 mg Documented By: Admin: 10/14/21 11:53 Dose: 10 mg Documented By: Admin: 10/13/21 09:50 Dose: 10 mg Documented By: BJ Prednisone (Prednisone 20 Mg Tablet) 20 mg PO NOW ONE Stop: 10/15/21 10:52 Last Admin: 10/15/21 11:14 Dose: 20 mg Documented By: JASWINDER Warfarin Sodium (Warfarin 5 Mg Tablet) 5 mg PO DAILY@1700 [facility] Last Admin: 10/15/21 17:17 Dose: 5 mg Documented By: Admin: 10/14/21 19:02 Dose: 5 mg Documented By: Admin: 10/13/21 17:05 Dose: 5 mg Documented By: SB Vital Signs Vital signs: Vital Signs - 8 hr 10/15/21 21:08 Pulse Rate 88 Blood Pressure 177/85 H <Tahira Doherty DO - Last Filed: 10/16/21 07:44> Orders Ordered: Discontinued Medications Allopurinol (Allopurinol 300 Mg Tablet) 300 mg PO DAILY [facility] Last Admin: 10/15/21 10:44 Dose: 300 mg Documented By: Admin: 10/14/21 11:53 Dose: 300 mg Documented By: Admin: 10/13/21 09:51 Dose: 300 mg Documented By: BJ Amiodarone HCl (Amiodarone 200 Mg Tablet) 400 mg PO NOW ONE Stop: 10/14/21 03:47 Last Admin: 10/14/21 05:22 Dose: 400 mg Documented By: FRANKIE Amiodarone HCl (Amiodarone 200 Mg Tablet) 400 mg PO BIDWM [facility] Last Admin: 10/15/21 17:17 Dose: 400 mg Documented By: Admin: 10/15/21 10:45 Dose: 400 mg Documented By: Admin: 10/14/21 19:06 Dose: 400 mg Documented By: TOO Brimonidine Tartrate (Brimonidine 0.2% Ophth 5 Ml) 1 drops EYE-BOTH BID [facility] Last Admin: 10/15/21 21:59 Dose: 1 drops Documented By: Admin: 10/15/21 10:46 Dose: 1 drops Documented By: Admin: 10/14/21 21:24 Dose: 1 drops Documented By: Admin: 10/14/21 11:27 Dose: 1 drops Documented By: Admin: 10/13/21 21:45 Dose: 1 drops Documented By: Admin: 10/13/21 09:50 Dose: 1 drops Documented By: BJ Carvedilol (Carvedilol 12.5 Mg Tablet) 25 mg PO NOW ONE Stop: 10/14/21 23:27 Last Admin: 10/15/21 00:35 Dose: 25 mg Documented By: MALIKA Carvedilol (Carvedilol 12.5 Mg Tablet) 25 mg PO BID [facility] Last Admin: 10/15/21 21:08 Dose: 25 mg Documented By: Admin: 10/15/21 10:44 Dose: 25 mg Documented By: OUSMANE Diltiazem HCl (Diltiazem 5 Mg/Ml Sdv) 10 mg IV NOW ONE Stop: 10/12/21 20:46 Last Admin: 10/12/21 20:53 Dose: 10 mg Documented By: FRANKIE Dorzolamide/Timolol (Dorzolamide/Timolol Ophth 10 Ml) 1 drops EYE-BOTH BID [facility] Last Admin: 10/15/21 21:08 Dose: 1 drops Documented By: Admin: 10/15/21 10:46 Dose: 1 drops Documented By: Admin: 10/14/21 21:16 Dose: 1 drops Documented By: Admin: 10/14/21 11:28 Dose: 1 drops Documented By: Admin: 10/13/21 21:45 Dose: 1 drops Documented By: Admin: 10/13/21 09:50 Dose: 1 drops Documented By: BJ Famotidine (Famotidine 20 Mg/2 Ml Vial) 20 mg IV NOW [facility] Last Admin: 10/15/21 11:14 Dose: 20 mg Documented By: JASWINDER Furosemide (Furosemide 20 Mg Tablet) 20 mg PO BID PRN PRN Reason: Edema Last Admin: 10/13/21 09:51 Dose: 20 mg Documented By: BJ DILTIAZEM (Diltiazem 125 Mg/125 [id number]-[id number]) 125 mg in 125 mls @ 5 mls/hr IV TITRATE [facility]MON; Protocol Last Titration: 10/14/21 15:37 Dose: 0 mg/hr, 0 mls/hr Documented By: Titration: 10/12/21 22:46 Dose: 0 mg/hr, 0 mls/hr Documented By: Titration: 10/12/21 21:21 Dose: 10 mg/hr, 10 mls/hr Documented By: Admin: 10/12/21 20:54 Dose: 5 mg/hr, 5 mls/hr Documented By: FRANKIE Amiodarone HCl/Dextrose (Nexterone) 150 mg in 100 mls @ 600 mls/hr IV NOW ONE; Protocol Stop: 10/13/21 02:06 Last Infusion: 10/13/21 02:21 Dose: 0 mls/hr Documented By: Admin: 10/13/21 02:10 Dose: 600 mls/hr Documented By: FRANKIE Amiodarone HCl/Dextrose (Nexterone) 360 mg in 200 mls @ 33.333 mls/hr IV NOW ONE; Protocol Stop: 10/13/21 07:56 Last Titration: 10/13/21 08:20 Dose: 0 mls/hr, 0 mls/hr Documented By: Admin: 10/13/21 02:22 Dose: 33.33 mls/hr, 33.33 mls/hr Documented By: FRANKIE Amiodarone HCl/Dextrose (Nexterone) 540 mg in 300 mls @ 16.7 mls/hr IV CONT [facility]; Protocol Stop: 10/14/21 01:55 Last Titration: 10/14/21 02:29 Dose: 0 mls/hr, 0 mls/hr Documented By: Admin: 10/13/21 08:17 Dose: 16.7 mls/hr, 16.7 mls/hr Documented By: BJ Levothyroxine Sodium (Levothyroxine 50 Mcg Tablet) 50 mcg PO DAILY@0600 [facility] Last Admin: 10/15/21 08:40 Dose: 50 mcg Documented By: Admin: 10/14/21 11:27 Dose: 50 mcg Documented By: ALETHA Prednisone (Prednisone 20 Mg Tablet) 10 mg PO DAILY [facility] Last Admin: 10/15/21 08:40 Dose: 10 mg Documented By: Admin: 10/14/21 11:53 Dose: 10 mg Documented By: Admin: 10/13/21 09:50 Dose: 10 mg Documented By: BJ Prednisone (Prednisone 20 Mg Tablet) 20 mg PO NOW ONE Stop: 10/15/21 10:52 Last Admin: 10/15/21 11:14 Dose: 20 mg Documented By: JASWINDER Warfarin Sodium (Warfarin 5 Mg Tablet) 5 mg PO DAILY@1700 [facility] Last Admin: 10/15/21 17:17 Dose: 5 mg Documented By: Admin: 10/14/21 19:02 Dose: 5 mg Documented By: Admin: 10/13/21 17:05 Dose: 5 mg Documented By: HILTON Vital Signs Vital signs: Vital Signs - 8 hr 10/15/21 21:08 Pulse Rate 88 Blood Pressure 177/85 H MDM - Chest Pain <Ej Hinkle DO - Last Filed: 10/16/21 02:43> Lab Data Result diagrams: 10/15/21 09:29 10/15/21 09:29 Labs: Lab Results 10/12/21 10/12/21 10/12/21 Range/Units 19:25 19:25 19:25 WBC 9.6 (4.5-11.0) X10^3/uL RBC 3.54 L (4.0-5.2) X10^6/uL Hgb 11.4 L (12.0-16.0) g/dL Hct 35.2 L (36-46) % MCV 99.5 (80-100) fL MCH 32.2 (26-34) PG MCHC 32.3 (30-36) % RDW 15.8 H (11.6-14.8) % Plt Count 164 (150-400) X10^3/uL Neut % (Auto) 82.0 H (50-75) % Lymph % (Auto) 13.0 L (25-40) % Brule % (Auto) 4.4 (3-14) % Eos % (Auto) 0.1 L (2-4) % Baso % (Auto) 0.5 (0-2) % Neut # (Auto) 7900 H (4935-0700) /uL Lymph # (Auto) 1200 (9937-4349) /uL Brule # (Auto) 400 (0-900) /uL Eos # (Auto) 0 (0-450) /uL Baso # (Auto) 0 (0-100) /uL PT 12.2 (10.1-12.7) SECONDS INR 1.1 (0.9-1.3) Sodium 133 L (137-145) mmol/L Potassium 4.0 (3.4-5.1) mmol/L Chloride 96 L (98-107) mmol/L Carbon Dioxide 25 (22-32) mmol/L BUN 38 H (7-17) mg/dL Creatinine 2.86 H (0.52-1.04) mg/dL Estimated GFR 16 L (>60) mL/min BUN/Creatinine Ratio 13.3 (6-22) Glucose 128 H (80-110) mg/dL Calcium 8.4 (8.4-10.2) mg/dL Total Bilirubin 0.8 (0.2-1.3) mg/dL AST 38 H (14-36) IU/L ALT 45 H (<35) IU/L Alkaline Phosphatase 71 (38-126) U/L Total Creatine Kinase (30-135) U/L CK-MB (CK-2) CK-MB (CK-2) Rel Index Troponin I (0.01-0.034) ng/mL NT-Pro-B Natriuret Pep (<450) pg/mL Total Protein 6.9 (6.3-8.2) g/dL Albumin 4.2 (3.5-5.0) g/dL Globulin 2.7 (1.7-4.1) g/dL Albumin/Globulin Ratio 1.6 (1.0-2.8) SARS-CoV-2 (PCR) (Negative) 10/12/21 10/12/21 10/13/21 Range/Units 19:25 19:25 07:45 WBC (4.5-11.0) X10^3/uL RBC (4.0-5.2) X10^6/uL Hgb (12.0-16.0) g/dL Hct (36-46) % MCV (80-100) fL MCH (26-34) PG MCHC (30-36) % RDW (11.6-14.8) % Plt Count (150-400) X10^3/uL Neut % (Auto) (50-75) % Lymph % (Auto) (25-40) % Brule % (Auto) (3-14) % Eos % (Auto) (2-4) % Baso % (Auto) (0-2) % Neut # (Auto) (7611-8729) /uL Lymph # (Auto) (6545-9714) /uL Brule # (Auto) (0-900) /uL Eos # (Auto) (0-450) /uL Baso # (Auto) (0-100) /uL PT (10.1-12.7) SECONDS INR (0.9-1.3) Sodium (137-145) mmol/L Potassium (3.4-5.1) mmol/L Chloride (98-107) mmol/L Carbon Dioxide (22-32) mmol/L BUN (7-17) mg/dL Creatinine (0.52-1.04) mg/dL Estimated GFR (>60) mL/min BUN/Creatinine Ratio (6-22) Glucose (80-110) mg/dL Calcium (8.4-10.2) mg/dL Total Bilirubin (0.2-1.3) mg/dL AST (14-36) IU/L ALT (<35) IU/L Alkaline Phosphatase (38-126) U/L Total Creatine Kinase 77 (30-135) U/L CK-MB (CK-2) TNP CK-MB (CK-2) Rel Index TNP Troponin I 0.048 H (0.01-0.034) ng/mL NT-Pro-B Natriuret Pep 66808 H (<450) pg/mL Total Protein (6.3-8.2) g/dL Albumin (3.5-5.0) g/dL Globulin (1.7-4.1) g/dL Albumin/Globulin Ratio (1.0-2.8) SARS-CoV-2 (PCR) Negative (Negative) 10/14/21 10/14/21 10/14/21 Range/Units 05:56 05:56 07:58 WBC 9.6 (4.5-11.0) X10^3/uL RBC 3.43 L (4.0-5.2) X10^6/uL Hgb 11.2 L (12.0-16.0) g/dL Hct 33.7 L (36-46) % MCV 98.1 (80-100) fL MCH 32.5 (26-34) PG MCHC 33.1 (30-36) % RDW 15.7 H (11.6-14.8) % Plt Count 152 (150-400) X10^3/uL Neut % (Auto) 60.4 D (50-75) % Lymph % (Auto) 29.1 (25-40) % Brule % (Auto) 9.3 (3-14) % Eos % (Auto) 0.6 L (2-4) % Baso % (Auto) 0.6 (0-2) % Neut # (Auto) 5800 (9331-4312) /uL Lymph # (Auto) 2800 (7571-9643) /uL Brule # (Auto) 900 (0-900) /uL Eos # (Auto) 100 (0-450) /uL Baso # (Auto) 100 (0-100) /uL PT 13.3 H (10.1-12.7) SECONDS INR 1.2 (0.9-1.3) Sodium 127 L (137-145) mmol/L Potassium 4.3 (3.4-5.1) mmol/L Chloride 93 L (98-107) mmol/L Carbon Dioxide 23 (22-32) mmol/L BUN 60 H (7-17) mg/dL Creatinine 4.41 H (0.52-1.04) mg/dL Estimated GFR 10 L (>60) mL/min BUN/Creatinine Ratio 13.6 (6-22) Glucose 101 (80-110) mg/dL Calcium 8.7 (8.4-10.2) mg/dL Total Bilirubin 0.4 (0.2-1.3) mg/dL AST 33 (14-36) IU/L ALT 45 H (<35) IU/L Alkaline Phosphatase 62 (38-126) U/L Total Creatine Kinase (30-135) U/L CK-MB (CK-2) CK-MB (CK-2) Rel Index Troponin I (0.01-0.034) ng/mL NT-Pro-B Natriuret Pep (<450) pg/mL Total Protein 6.1 L (6.3-8.2) g/dL Albumin 3.8 (3.5-5.0) g/dL Globulin 2.3 (1.7-4.1) g/dL Albumin/Globulin Ratio 1.7 (1.0-2.8) SARS-CoV-2 (PCR) (Negative) 10/15/21 10/15/21 10/15/21 Range/Units 09:29 09:29 09:29 WBC 9.4 (4.5-11.0) X10^3/uL RBC 3.48 L (4.0-5.2) X10^6/uL Hgb 11.3 L (12.0-16.0) g/dL Hct 34.6 L (36-46) % MCV 99.4 (80-100) fL MCH 32.4 (26-34) PG MCHC 32.6 (30-36) % RDW 15.6 H (11.6-14.8) % Plt Count 152 (150-400) X10^3/uL Neut % (Auto) 62.1 (50-75) % Lymph % (Auto) 27.0 (25-40) % Brule % (Auto) 9.0 (3-14) % Eos % (Auto) 0.7 L (2-4) % Baso % (Auto) 1.2 (0-2) % Neut # (Auto) 5800 (6880-0681) /uL Lymph # (Auto) 2500 (3353-6673) /uL Brule # (Auto) 800 (0-900) /uL Eos # (Auto) 100 (0-450) /uL Baso # (Auto) 100 (0-100) /uL PT 13.2 H (10.1-12.7) SECONDS INR 1.2 (0.9-1.3) Sodium 128 L (137-145) mmol/L Potassium 4.3 (3.4-5.1) mmol/L Chloride 94 L (98-107) mmol/L Carbon Dioxide 22 (22-32) mmol/L BUN 69 H (7-17) mg/dL Creatinine 5.14 H (0.52-1.04) mg/dL Estimated GFR 8 L (>60) mL/min BUN/Creatinine Ratio 13.4 (6-22) Glucose 106 (80-110) mg/dL Calcium 8.8 (8.4-10.2) mg/dL Total Bilirubin 0.5 (0.2-1.3) mg/dL AST 21 (14-36) IU/L ALT 34 (<35) IU/L Alkaline Phosphatase 67 (38-126) U/L Total Creatine Kinase (30-135) U/L CK-MB (CK-2) CK-MB (CK-2) Rel Index Troponin I (0.01-0.034) ng/mL NT-Pro-B Natriuret Pep (<450) pg/mL Total Protein 6.3 (6.3-8.2) g/dL Albumin 3.8 (3.5-5.0) g/dL Globulin 2.5 (1.7-4.1) g/dL Albumin/Globulin Ratio 1.5 (1.0-2.8) SARS-CoV-2 (PCR) (Negative) MDM Narrative Medical decision making narrative: Appropriate for admission/transfer, at this time needs ICU because of amiodarone drip. Patient aware for this need and delay of admission Mank: 10/14/21: Patient signed out to myself with AFib RVR, hypertension and dialysis on Monday, Monday. Patient had a run of AFib while during dialysis. Was felt to not be a cardioversion candidate secondary to subtherapeutic INR and intermittent episodes of AFib. She is typically on Coumadin. Cardiology was consulted she was started on amiodarone drip for 24 hours and converted to oral amiodarone at 400 mg p.o. b.i.d. overnight, dose was given in at 5:30 a.m. in the morning. Patient was seen and evaluated independently by myself. She is regularly irregular ranging between 98 and 120s intermittently. CMP and INR are pending. Discussed with patient if she manages to become rate controlled today could potentially discharge home but if not at this point your still planning to transfer to [facility]. Patient does note she has been unable to successfully complete dialysis the last 3 times because of feeling so poorly she is had some increasing shortness of breath recently no increase in swelling. No chest pain or pressure or syncope. Multiple attempts to find placement, patient HR is still intermittently elevated. [facility] regional hotline was contacted again. Patient signed out to Dr. Hinkle for overnight. [[id number]/14/21] (Manan) Patient received in sign out from [Ashley]. I have reviewed the clinical course up until this point. Patient resting comfortably, fatigued, in no respiratory distress, heart rate in the upper 90s to 110s. I've called cardio at [facility] and we discussed the case at length. She requests we get the patient back on Coreg 25 BID, keep Amio and pursue transfer. She has been in AFib nearly continuously since August and does not tolerate sinus rhythm all that well as she becomes significantly bradycardic. No current indication for emergent cardioversion, will continue ot pursue <Tigre Chilel MD - Last Filed: 10/19/21 03:42> Differential Diagnosis Differential diagnosis: Likely stable angina, unstable angina pectoris and other (Atrial fibrillation/fluid overload) Lab Data Labs: Lab Results 10/12/21 10/12/21 10/12/21 Range/Units 19:25 19:25 19:25 WBC 9.6 (4.5-11.0) X10^3/uL RBC 3.54 L (4.0-5.2) X10^6/uL Hgb 11.4 L (12.0-16.0) g/dL Hct 35.2 L (36-46) % MCV 99.5 (80-100) fL MCH 32.2 (26-34) PG MCHC 32.3 (30-36) % RDW 15.8 H (11.6-14.8) % Plt Count 164 (150-400) X10^3/uL Neut % (Auto) 82.0 H (50-75) % Lymph % (Auto) 13.0 L (25-40) % Brule % (Auto) 4.4 (3-14) % Eos % (Auto) 0.1 L (2-4) % Baso % (Auto) 0.5 (0-2) % Neut # (Auto) 7900 H (6198-0895) /uL Lymph # (Auto) 1200 (3695-9306) /uL Brule # (Auto) 400 (0-900) /uL Eos # (Auto) 0 (0-450) /uL Baso # (Auto) 0 (0-100) /uL PT 12.2 (10.1-12.7) SECONDS INR 1.1 (0.9-1.3) Sodium 133 L (137-145) mmol/L Potassium 4.0 (3.4-5.1) mmol/L Chloride 96 L (98-107) mmol/L Carbon Dioxide 25 (22-32) mmol/L BUN 38 H (7-17) mg/dL Creatinine 2.86 H (0.52-1.04) mg/dL Estimated GFR 16 L (>60) mL/min BUN/Creatinine Ratio 13.3 (6-22) Glucose 128 H (80-110) mg/dL Calcium 8.4 (8.4-10.2) mg/dL Total Bilirubin 0.8 (0.2-1.3) mg/dL AST 38 H (14-36) IU/L ALT 45 H (<35) IU/L Alkaline Phosphatase 71 (38-126) U/L Total Creatine Kinase (30-135) U/L CK-MB (CK-2) CK-MB (CK-2) Rel Index Troponin I (0.01-0.034) ng/mL NT-Pro-B Natriuret Pep (<450) pg/mL Total Protein 6.9 (6.3-8.2) g/dL Albumin 4.2 (3.5-5.0) g/dL Globulin 2.7 (1.7-4.1) g/dL Albumin/Globulin Ratio 1.6 (1.0-2.8) SARS-CoV-2 (PCR) (Negative) 10/12/21 10/12/21 10/13/21 Range/Units 19:25 19:25 07:45 WBC (4.5-11.0) X10^3/uL RBC (4.0-5.2) X10^6/uL Hgb (12.0-16.0) g/dL Hct (36-46) % MCV (80-100) fL MCH (26-34) PG MCHC (30-36) % RDW (11.6-14.8) % Plt Count (150-400) X10^3/uL Neut % (Auto) (50-75) % Lymph % (Auto) (25-40) % Brule % (Auto) (3-14) % Eos % (Auto) (2-4) % Baso % (Auto) (0-2) % Neut # (Auto) (7033-4142) /uL Lymph # (Auto) (8303-7437) /uL Brule # (Auto) (0-900) /uL Eos # (Auto) (0-450) /uL Baso # (Auto) (0-100) /uL PT (10.1-12.7) SECONDS INR (0.9-1.3) Sodium (137-145) mmol/L Potassium (3.4-5.1) mmol/L Chloride (98-107) mmol/L Carbon Dioxide (22-32) mmol/L BUN (7-17) mg/dL Creatinine (0.52-1.04) mg/dL Estimated GFR (>60) mL/min BUN/Creatinine Ratio (6-22) Glucose (80-110) mg/dL Calcium (8.4-10.2) mg/dL Total Bilirubin (0.2-1.3) mg/dL AST (14-36) IU/L ALT (<35) IU/L Alkaline Phosphatase (38-126) U/L Total Creatine Kinase 77 (30-135) U/L CK-MB (CK-2) TNP CK-MB (CK-2) Rel Index TNP Troponin I 0.048 H (0.01-0.034) ng/mL NT-Pro-B Natriuret Pep 31896 H (<450) pg/mL Total Protein (6.3-8.2) g/dL Albumin (3.5-5.0) g/dL Globulin (1.7-4.1) g/dL Albumin/Globulin Ratio (1.0-2.8) SARS-CoV-2 (PCR) Negative (Negative) 10/14/21 10/14/21 10/14/21 Range/Units 05:56 05:56 07:58 WBC 9.6 (4.5-11.0) X10^3/uL RBC 3.43 L (4.0-5.2) X10^6/uL Hgb 11.2 L (12.0-16.0) g/dL Hct 33.7 L (36-46) % MCV 98.1 (80-100) fL MCH 32.5 (26-34) PG MCHC 33.1 (30-36) % RDW 15.7 H (11.6-14.8) % Plt Count 152 (150-400) X10^3/uL Neut % (Auto) 60.4 D (50-75) % Lymph % (Auto) 29.1 (25-40) % Brule % (Auto) 9.3 (3-14) % Eos % (Auto) 0.6 L (2-4) % Baso % (Auto) 0.6 (0-2) % Neut # (Auto) 5800 (7428-1596) /uL Lymph # (Auto) 2800 (1384-6693) /uL Brule # (Auto) 900 (0-900) /uL Eos # (Auto) 100 (0-450) /uL Baso # (Auto) 100 (0-100) /uL PT 13.3 H (10.1-12.7) SECONDS INR 1.2 (0.9-1.3) Sodium 127 L (137-145) mmol/L Potassium 4.3 (3.4-5.1) mmol/L Chloride 93 L (98-107) mmol/L Carbon Dioxide 23 (22-32) mmol/L BUN 60 H (7-17) mg/dL Creatinine 4.41 H (0.52-1.04) mg/dL Estimated GFR 10 L (>60) mL/min BUN/Creatinine Ratio 13.6 (6-22) Glucose 101 (80-110) mg/dL Calcium 8.7 (8.4-10.2) mg/dL Total Bilirubin 0.4 (0.2-1.3) mg/dL AST 33 (14-36) IU/L ALT 45 H (<35) IU/L Alkaline Phosphatase 62 (38-126) U/L Total Creatine Kinase (30-135) U/L CK-MB (CK-2) CK-MB (CK-2) Rel Index Troponin I (0.01-0.034) ng/mL NT-Pro-B Natriuret Pep (<450) pg/mL Total Protein 6.1 L (6.3-8.2) g/dL Albumin 3.8 (3.5-5.0) g/dL Globulin 2.3 (1.7-4.1) g/dL Albumin/Globulin Ratio 1.7 (1.0-2.8) SARS-CoV-2 (PCR) (Negative) 10/15/21 10/15/21 10/15/21 Range/Units 09:29 09:29 09:29 WBC 9.4 (4.5-11.0) X10^3/uL RBC 3.48 L (4.0-5.2) X10^6/uL Hgb 11.3 L (12.0-16.0) g/dL Hct 34.6 L (36-46) % MCV 99.4 (80-100) fL MCH 32.4 (26-34) PG MCHC 32.6 (30-36) % RDW 15.6 H (11.6-14.8) % Plt Count 152 (150-400) X10^3/uL Neut % (Auto) 62.1 (50-75) % Lymph % (Auto) 27.0 (25-40) % Brule % (Auto) 9.0 (3-14) % Eos % (Auto) 0.7 L (2-4) % Baso % (Auto) 1.2 (0-2) % Neut # (Auto) 5800 (5360-2722) /uL Lymph # (Auto) 2500 (5494-6339) /uL Brule # (Auto) 800 (0-900) /uL Eos # (Auto) 100 (0-450) /uL Baso # (Auto) 100 (0-100) /uL PT 13.2 H (10.1-12.7) SECONDS INR 1.2 (0.9-1.3) Sodium 128 L (137-145) mmol/L Potassium 4.3 (3.4-5.1) mmol/L Chloride 94 L (98-107) mmol/L Carbon Dioxide 22 (22-32) mmol/L BUN 69 H (7-17) mg/dL Creatinine 5.14 H (0.52-1.04) mg/dL Estimated GFR 8 L (>60) mL/min BUN/Creatinine Ratio 13.4 (6-22) Glucose 106 (80-110) mg/dL Calcium 8.8 (8.4-10.2) mg/dL Total Bilirubin 0.5 (0.2-1.3) mg/dL AST 21 (14-36) IU/L ALT 34 (<35) IU/L Alkaline Phosphatase 67 (38-126) U/L Total Creatine Kinase (30-135) U/L CK-MB (CK-2) CK-MB (CK-2) Rel Index Troponin I (0.01-0.034) ng/mL NT-Pro-B Natriuret Pep (<450) pg/mL Total Protein 6.3 (6.3-8.2) g/dL Albumin 3.8 (3.5-5.0) g/dL Globulin 2.5 (1.7-4.1) g/dL Albumin/Globulin Ratio 1.5 (1.0-2.8) SARS-CoV-2 (PCR) (Negative) Imaging Data Chest x-ray: Radiologist's Impression: [address] [address] XRay Report Signed Patient: Clementina Roque MR#: [id number] : 1940 Acct:[id number] Age/Sex: 81 / F Date of Service: 10/12/21 Loc: ED Accession Number: [id number] ?? Procedure: XR chest 1V Ordering Provider: Ej Hinkle D.O. PROCEDURE:? XR CHEST 1V ? INDICATIONS:? afib/SOB ? TECHNIQUE:? One view of the chest was acquired.? ? COMPARISON:? [facility], CR, XR CHEST 2V, 03/19/2020, 15:21.? .? [facility], CR, XR CHEST 1 VIEW, 09/05/2021, 0:01.? [facility], CR, XR CHEST 1V, 09/18/2021, 16:01. ? FINDINGS:? ? Surgical changes and devices:? None.? ? Lungs and pleura:? There is mild interstitial prominence which appears unchanged.? No acute consolidation.? No pleural effusions or pneumothorax.? ? Mediastinum:? Mediastinal contours are unchanged.? Heart size is enlarged. ? Bones and chest wall:? No suspicious bony lesions.? Overlying soft tissues appear unremarkable.? ? IMPRESSION:? ? 1. No definite acute cardiopulmonary disease. ? 2. Mild interstitial prominence likely representing chronic changes redemonstrated.? ? ? Dictated by: Eric Baker M.D. on 10/12/2021 at 21:17 ? ? Approved by: Eric Baker M.D. on 10/12/2021 at 21:21 ? ECG Data Interpretation: Atrial fibrillation with RVR rate [address] elevation MDM Narrative Medical decision making narrative: Appropriate for admission/transfer, at this time needs ICU because of amiodarone drip. Patient aware for this need and delay of admission <Radha Ramirez, DO - Last Filed: 10/14/21 21:19> Lab Data Labs: Lab Results 10/12/21 10/12/21 10/12/21 Range/Units 19:25 19:25 19:25 WBC 9.6 (4.5-11.0) X10^3/uL RBC 3.54 L (4.0-5.2) X10^6/uL Hgb 11.4 L (12.0-16.0) g/dL Hct 35.2 L (36-46) % MCV 99.5 (80-100) fL MCH 32.2 (26-34) PG MCHC 32.3 (30-36) % RDW 15.8 H (11.6-14.8) % Plt Count 164 (150-400) X10^3/uL Neut % (Auto) 82.0 H (50-75) % Lymph % (Auto) 13.0 L (25-40) % Brule % (Auto) 4.4 (3-14) % Eos % (Auto) 0.1 L (2-4) % Baso % (Auto) 0.5 (0-2) % Neut # (Auto) 7900 H (4801-7309) /uL Lymph # (Auto) 1200 (0594-6558) /uL Brule # (Auto) 400 (0-900) /uL Eos # (Auto) 0 (0-450) /uL Baso # (Auto) 0 (0-100) /uL PT 12.2 (10.1-12.7) SECONDS INR 1.1 (0.9-1.3) Sodium 133 L (137-145) mmol/L Potassium 4.0 (3.4-5.1) mmol/L Chloride 96 L (98-107) mmol/L Carbon Dioxide 25 (22-32) mmol/L BUN 38 H (7-17) mg/dL Creatinine 2.86 H (0.52-1.04) mg/dL Estimated GFR 16 L (>60) mL/min BUN/Creatinine Ratio 13.3 (6-22) Glucose 128 H (80-110) mg/dL Calcium 8.4 (8.4-10.2) mg/dL Total Bilirubin 0.8 (0.2-1.3) mg/dL AST 38 H (14-36) IU/L ALT 45 H (<35) IU/L Alkaline Phosphatase 71 (38-126) U/L Total Creatine Kinase (30-135) U/L CK-MB (CK-2) CK-MB (CK-2) Rel Index Troponin I (0.01-0.034) ng/mL NT-Pro-B Natriuret Pep (<450) pg/mL Total Protein 6.9 (6.3-8.2) g/dL Albumin 4.2 (3.5-5.0) g/dL Globulin 2.7 (1.7-4.1) g/dL Albumin/Globulin Ratio 1.6 (1.0-2.8) SARS-CoV-2 (PCR) (Negative) 10/12/21 10/12/21 10/13/21 Range/Units 19:25 19:25 07:45 WBC (4.5-11.0) X10^3/uL RBC (4.0-5.2) X10^6/uL Hgb (12.0-16.0) g/dL Hct (36-46) % MCV (80-100) fL MCH (26-34) PG MCHC (30-36) % RDW (11.6-14.8) % Plt Count (150-400) X10^3/uL Neut % (Auto) (50-75) % Lymph % (Auto) (25-40) % Brule % (Auto) (3-14) % Eos % (Auto) (2-4) % Baso % (Auto) (0-2) % Neut # (Auto) (7492-9247) /uL Lymph # (Auto) (9757-1138) /uL Brule # (Auto) (0-900) /uL Eos # (Auto) (0-450) /uL Baso # (Auto) (0-100) /uL PT (10.1-12.7) SECONDS INR (0.9-1.3) Sodium (137-145) mmol/L Potassium (3.4-5.1) mmol/L Chloride (98-107) mmol/L Carbon Dioxide (22-32) mmol/L BUN (7-17) mg/dL Creatinine (0.52-1.04) mg/dL Estimated GFR (>60) mL/min BUN/Creatinine Ratio (6-22) Glucose (80-110) mg/dL Calcium (8.4-10.2) mg/dL Total Bilirubin (0.2-1.3) mg/dL AST (14-36) IU/L ALT (<35) IU/L Alkaline Phosphatase (38-126) U/L Total Creatine Kinase 77 (30-135) U/L CK-MB (CK-2) TNP CK-MB (CK-2) Rel Index TNP Troponin I 0.048 H (0.01-0.034) ng/mL NT-Pro-B Natriuret Pep 89036 H (<450) pg/mL Total Protein (6.3-8.2) g/dL Albumin (3.5-5.0) g/dL Globulin (1.7-4.1) g/dL Albumin/Globulin Ratio (1.0-2.8) SARS-CoV-2 (PCR) Negative (Negative) 10/14/21 10/14/21 10/14/21 Range/Units 05:56 05:56 07:58 WBC 9.6 (4.5-11.0) X10^3/uL RBC 3.43 L (4.0-5.2) X10^6/uL Hgb 11.2 L (12.0-16.0) g/dL Hct 33.7 L (36-46) % MCV 98.1 (80-100) fL MCH 32.5 (26-34) PG MCHC 33.1 (30-36) % RDW 15.7 H (11.6-14.8) % Plt Count 152 (150-400) X10^3/uL Neut % (Auto) 60.4 D (50-75) % Lymph % (Auto) 29.1 (25-40) % Brule % (Auto) 9.3 (3-14) % Eos % (Auto) 0.6 L (2-4) % Baso % (Auto) 0.6 (0-2) % Neut # (Auto) 5800 (5199-9074) /uL Lymph # (Auto) 2800 (3409-1440) /uL Brule # (Auto) 900 (0-900) /uL Eos # (Auto) 100 (0-450) /uL Baso # (Auto) 100 (0-100) /uL PT 13.3 H (10.1-12.7) SECONDS INR 1.2 (0.9-1.3) Sodium 127 L (137-145) mmol/L Potassium 4.3 (3.4-5.1) mmol/L Chloride 93 L (98-107) mmol/L Carbon Dioxide 23 (22-32) mmol/L BUN 60 H (7-17) mg/dL Creatinine 4.41 H (0.52-1.04) mg/dL Estimated GFR 10 L (>60) mL/min BUN/Creatinine Ratio 13.6 (6-22) Glucose 101 (80-110) mg/dL Calcium 8.7 (8.4-10.2) mg/dL Total Bilirubin 0.4 (0.2-1.3) mg/dL AST 33 (14-36) IU/L ALT 45 H (<35) IU/L Alkaline Phosphatase 62 (38-126) U/L Total Creatine Kinase (30-135) U/L CK-MB (CK-2) CK-MB (CK-2) Rel Index Troponin I (0.01-0.034) ng/mL NT-Pro-B Natriuret Pep (<450) pg/mL Total Protein 6.1 L (6.3-8.2) g/dL Albumin 3.8 (3.5-5.0) g/dL Globulin 2.3 (1.7-4.1) g/dL Albumin/Globulin Ratio 1.7 (1.0-2.8) SARS-CoV-2 (PCR) (Negative) 10/15/21 10/15/21 10/15/21 Range/Units 09:29 09:29 09:29 WBC 9.4 (4.5-11.0) X10^3/uL RBC 3.48 L (4.0-5.2) X10^6/uL Hgb 11.3 L (12.0-16.0) g/dL Hct 34.6 L (36-46) % MCV 99.4 (80-100) fL MCH 32.4 (26-34) PG MCHC 32.6 (30-36) % RDW 15.6 H (11.6-14.8) % Plt Count 152 (150-400) X10^3/uL Neut % (Auto) 62.1 (50-75) % Lymph % (Auto) 27.0 (25-40) % Brule % (Auto) 9.0 (3-14) % Eos % (Auto) 0.7 L (2-4) % Baso % (Auto) 1.2 (0-2) % Neut # (Auto) 5800 (7062-1148) /uL Lymph # (Auto) 2500 (0078-2681) /uL Brule # (Auto) 800 (0-900) /uL Eos # (Auto) 100 (0-450) /uL Baso # (Auto) 100 (0-100) /uL PT 13.2 H (10.1-12.7) SECONDS INR 1.2 (0.9-1.3) Sodium 128 L (137-145) mmol/L Potassium 4.3 (3.4-5.1) mmol/L Chloride 94 L (98-107) mmol/L Carbon Dioxide 22 (22-32) mmol/L BUN 69 H (7-17) mg/dL Creatinine 5.14 H (0.52-1.04) mg/dL Estimated GFR 8 L (>60) mL/min BUN/Creatinine Ratio 13.4 (6-22) Glucose 106 (80-110) mg/dL Calcium 8.8 (8.4-10.2) mg/dL Total Bilirubin 0.5 (0.2-1.3) mg/dL AST 21 (14-36) IU/L ALT 34 (<35) IU/L Alkaline Phosphatase 67 (38-126) U/L Total Creatine Kinase (30-135) U/L CK-MB (CK-2) CK-MB (CK-2) Rel Index Troponin I (0.01-0.034) ng/mL NT-Pro-B Natriuret Pep (<450) pg/mL Total Protein 6.3 (6.3-8.2) g/dL Albumin 3.8 (3.5-5.0) g/dL Globulin 2.5 (1.7-4.1) g/dL Albumin/Globulin Ratio 1.5 (1.0-2.8) SARS-CoV-2 (PCR) (Negative) MDM Narrative Medical decision making narrative: Appropriate for admission/transfer, at this time needs ICU because of amiodarone drip. Patient aware for this need and delay of admission Mank: 10/14/21: Patient signed out to myself with AFib RVR, hypertension and dialysis on Monday, Monday. Patient had a run of AFib while during dialysis. Was felt to not be a cardioversion candidate secondary to subtherapeutic INR and intermittent episodes of AFib. She is typically on Coumadin. Cardiology was consulted she was started on amiodarone drip for 24 hours and converted to oral amiodarone at 400 mg p.o. b.i.d. overnight, dose was given in at 5:30 a.m. in the morning. Patient was seen and evaluated independently by myself. She is regularly irregular ranging between 98 and 120s intermittently. CMP and INR are pending. Discussed with patient if she manages to become rate controlled today could potentially discharge home but if not at this point your still planning to transfer to [facility]. Patient does note she has been unable to successfully complete dialysis the last 3 times because of feeling so poorly she is had some increasing shortness of breath recently no increase in swelling. No chest pain or pressure or syncope. Multiple attempts to find placement, patient HR is still intermittently elevated. [facility] regional hotline was contacted again. Patient signed out to Dr. Hinkle for overnight. <Tahira Doherty, DO - Last Filed: 10/16/21 07:44> Lab Data Labs: Lab Results 10/12/21 10/12/21 10/12/21 Range/Units 19:25 19:25 19:25 WBC 9.6 (4.5-11.0) X10^3/uL RBC 3.54 L (4.0-5.2) X10^6/uL Hgb 11.4 L (12.0-16.0) g/dL Hct 35.2 L (36-46) % MCV 99.5 (80-100) fL MCH 32.2 (26-34) PG MCHC 32.3 (30-36) % RDW 15.8 H (11.6-14.8) % Plt Count 164 (150-400) X10^3/uL Neut % (Auto) 82.0 H (50-75) % Lymph % (Auto) 13.0 L (25-40) % Brule % (Auto) 4.4 (3-14) % Eos % (Auto) 0.1 L (2-4) % Baso % (Auto) 0.5 (0-2) % Neut # (Auto) 7900 H (9600-8375) /uL Lymph # (Auto) 1200 (7924-1400) /uL Brule # (Auto) 400 (0-900) /uL Eos # (Auto) 0 (0-450) /uL Baso # (Auto) 0 (0-100) /uL PT 12.2 (10.1-12.7) SECONDS INR 1.1 (0.9-1.3) Sodium 133 L (137-145) mmol/L Potassium 4.0 (3.4-5.1) mmol/L Chloride 96 L (98-107) mmol/L Carbon Dioxide 25 (22-32) mmol/L BUN 38 H (7-17) mg/dL Creatinine 2.86 H (0.52-1.04) mg/dL Estimated GFR 16 L (>60) mL/min BUN/Creatinine Ratio 13.3 (6-22) Glucose 128 H (80-110) mg/dL Calcium 8.4 (8.4-10.2) mg/dL Total Bilirubin 0.8 (0.2-1.3) mg/dL AST 38 H (14-36) IU/L ALT 45 H (<35) IU/L Alkaline Phosphatase 71 (38-126) U/L Total Creatine Kinase (30-135) U/L CK-MB (CK-2) CK-MB (CK-2) Rel Index Troponin I (0.01-0.034) ng/mL NT-Pro-B Natriuret Pep (<450) pg/mL Total Protein 6.9 (6.3-8.2) g/dL Albumin 4.2 (3.5-5.0) g/dL Globulin 2.7 (1.7-4.1) g/dL Albumin/Globulin Ratio 1.6 (1.0-2.8) SARS-CoV-2 (PCR) (Negative) 10/12/21 10/12/21 10/13/21 Range/Units 19:25 19:25 07:45 WBC (4.5-11.0) X10^3/uL RBC (4.0-5.2) X10^6/uL Hgb (12.0-16.0) g/dL Hct (36-46) % MCV (80-100) fL MCH (26-34) PG MCHC (30-36) % RDW (11.6-14.8) % Plt Count (150-400) X10^3/uL Neut % (Auto) (50-75) % Lymph % (Auto) (25-40) % Brule % (Auto) (3-14) % Eos % (Auto) (2-4) % Baso % (Auto) (0-2) % Neut # (Auto) (8738-2111) /uL Lymph # (Auto) (3846-3361) /uL Brule # (Auto) (0-900) /uL Eos # (Auto) (0-450) /uL Baso # (Auto) (0-100) /uL PT (10.1-12.7) SECONDS INR (0.9-1.3) Sodium (137-145) mmol/L Potassium (3.4-5.1) mmol/L Chloride (98-107) mmol/L Carbon Dioxide (22-32) mmol/L BUN (7-17) mg/dL Creatinine (0.52-1.04) mg/dL Estimated GFR (>60) mL/min BUN/Creatinine Ratio (6-22) Glucose (80-110) mg/dL Calcium (8.4-10.2) mg/dL Total Bilirubin (0.2-1.3) mg/dL AST (14-36) IU/L ALT (<35) IU/L Alkaline Phosphatase (38-126) U/L Total Creatine Kinase 77 (30-135) U/L CK-MB (CK-2) TNP CK-MB (CK-2) Rel Index TNP Troponin I 0.048 H (0.01-0.034) ng/mL NT-Pro-B Natriuret Pep 78511 H (<450) pg/mL Total Protein (6.3-8.2) g/dL Albumin (3.5-5.0) g/dL Globulin (1.7-4.1) g/dL Albumin/Globulin Ratio (1.0-2.8) SARS-CoV-2 (PCR) Negative (Negative) 10/14/21 10/14/21 10/14/21 Range/Units 05:56 05:56 07:58 WBC 9.6 (4.5-11.0) X10^3/uL RBC 3.43 L (4.0-5.2) X10^6/uL Hgb 11.2 L (12.0-16.0) g/dL Hct 33.7 L (36-46) % MCV 98.1 (80-100) fL MCH 32.5 (26-34) PG MCHC 33.1 (30-36) % RDW 15.7 H (11.6-14.8) % Plt Count 152 (150-400) X10^3/uL Neut % (Auto) 60.4 D (50-75) % Lymph % (Auto) 29.1 (25-40) % Brule % (Auto) 9.3 (3-14) % Eos % (Auto) 0.6 L (2-4) % Baso % (Auto) 0.6 (0-2) % Neut # (Auto) 5800 (3875-1723) /uL Lymph # (Auto) 2800 (6026-5356) /uL Brule # (Auto) 900 (0-900) /uL Eos # (Auto) 100 (0-450) /uL Baso # (Auto) 100 (0-100) /uL PT 13.3 H (10.1-12.7) SECONDS INR 1.2 (0.9-1.3) Sodium 127 L (137-145) mmol/L Potassium 4.3 (3.4-5.1) mmol/L Chloride 93 L (98-107) mmol/L Carbon Dioxide 23 (22-32) mmol/L BUN 60 H (7-17) mg/dL Creatinine 4.41 H (0.52-1.04) mg/dL Estimated GFR 10 L (>60) mL/min BUN/Creatinine Ratio 13.6 (6-22) Glucose 101 (80-110) mg/dL Calcium 8.7 (8.4-10.2) mg/dL Total Bilirubin 0.4 (0.2-1.3) mg/dL AST 33 (14-36) IU/L ALT 45 H (<35) IU/L Alkaline Phosphatase 62 (38-126) U/L Total Creatine Kinase (30-135) U/L CK-MB (CK-2) CK-MB (CK-2) Rel Index Troponin I (0.01-0.034) ng/mL NT-Pro-B Natriuret Pep (<450) pg/mL Total Protein 6.1 L (6.3-8.2) g/dL Albumin 3.8 (3.5-5.0) g/dL Globulin 2.3 (1.7-4.1) g/dL Albumin/Globulin Ratio 1.7 (1.0-2.8) SARS-CoV-2 (PCR) (Negative) 10/15/21 10/15/21 10/15/21 Range/Units 09:29 09:29 09:29 WBC 9.4 (4.5-11.0) X10^3/uL RBC 3.48 L (4.0-5.2) X10^6/uL Hgb 11.3 L (12.0-16.0) g/dL Hct 34.6 L (36-46) % MCV 99.4 (80-100) fL MCH 32.4 (26-34) PG MCHC 32.6 (30-36) % RDW 15.6 H (11.6-14.8) % Plt Count 152 (150-400) X10^3/uL Neut % (Auto) 62.1 (50-75) % Lymph % (Auto) 27.0 (25-40) % Brule % (Auto) 9.0 (3-14) % Eos % (Auto) 0.7 L (2-4) % Baso % (Auto) 1.2 (0-2) % Neut # (Auto) 5800 (9487-6793) /uL Lymph # (Auto) 2500 (7009-2213) /uL Brule # (Auto) 800 (0-900) /uL Eos # (Auto) 100 (0-450) /uL Baso # (Auto) 100 (0-100) /uL PT 13.2 H (10.1-12.7) SECONDS INR 1.2 (0.9-1.3) Sodium 128 L (137-145) mmol/L Potassium 4.3 (3.4-5.1) mmol/L Chloride 94 L (98-107) mmol/L Carbon Dioxide 22 (22-32) mmol/L BUN 69 H (7-17) mg/dL Creatinine 5.14 H (0.52-1.04) mg/dL Estimated GFR 8 L (>60) mL/min BUN/Creatinine Ratio 13.4 (6-22) Glucose 106 (80-110) mg/dL Calcium 8.8 (8.4-10.2) mg/dL Total Bilirubin 0.5 (0.2-1.3) mg/dL AST 21 (14-36) IU/L ALT 34 (<35) IU/L Alkaline Phosphatase 67 (38-126) U/L Total Creatine Kinase (30-135) U/L CK-MB (CK-2) CK-MB (CK-2) Rel Index Troponin I (0.01-0.034) ng/mL NT-Pro-B Natriuret Pep (<450) pg/mL Total Protein 6.3 (6.3-8.2) g/dL Albumin 3.8 (3.5-5.0) g/dL Globulin 2.5 (1.7-4.1) g/dL Albumin/Globulin Ratio 1.5 (1.0-2.8) SARS-CoV-2 (PCR) (Negative) MDM Narrative Medical decision making narrative: Appropriate for admission/transfer, at this time needs ICU because of amiodarone drip. Patient aware for this need and delay of admission Ashley: 10/14/21: Patient signed out to myself with AFib RVR, hypertension and dialysis on Monday, Monday. Patient had a run of AFib while during dialysis. Was felt to not be a cardioversion candidate secondary to subtherapeutic INR and intermittent episodes of AFib. She is typically on Coumadin. Cardiology was consulted she was started on amiodarone drip for 24 hours and converted to oral amiodarone at 400 mg p.o. b.i.d. overnight, dose was given in at 5:30 a.m. in the morning. Patient was seen and evaluated independently by myself. She is regularly irregular ranging between 98 and 120s intermittently. CMP and INR are pending. Discussed with patient if she manages to become rate controlled today could potentially discharge home but if not at this point your still planning to transfer to [facility]. Patient does note she has been unable to successfully complete dialysis the last 3 times because of feeling so poorly she is had some increasing shortness of breath recently no increase in swelling. No chest pain or pressure or syncope. Multiple attempts to find placement, patient HR is still intermittently elevated. [facility] regional hotline was contacted again. Patient signed out to Dr. Hinkle for overnight. [[id number]/21] (Manan) Patient received in sign out from [Ashley]. I have reviewed the clinical course up until this point. Patient resting comfortably, fatigued, in no respiratory distress, heart rate in the upper 90s to 110s. I've called cardio at [facility] and we discussed the case at length. She requests we get the patient back on Coreg 25 BID, keep Amio and pursue transfer. She has been in AFib nearly continuously since August and does not tolerate sinus rhythm all that well as she becomes significantly bradycardic. No current indication for emergent cardioversion, will continue ot pursue 10/15/21 Chas Patient seen and evaluated by myself. She is here with AFib with RVR after finishing and labrum drip she is now on amiodarone pills and Coreg. She gets dialysis Monday. She missed dialysis yesterday. He has no complaints this morning except for an upset stomach which she says is probably from eating too much and not moving. She denies any chest pain or palpitations. She would like a shower today GENERAL: Alert pleasant 81-year-old female HEENT: Head atraumatic,EOMI, pupils reactive, face symmetric, [moist] mucous membranes CARDIOVASCULAR: Regular rate and rhythm without murmurs, rubs or gallops. RESPIRATORY: Breath sounds equal bilaterally, no wheezes rales or rhonchi. ABDOMEN: Soft, nontender. Normoactive bowel sounds all 4 quadrants. No guarding or rebound. EXTREMITIES: Normal range of motion, no clubbing or edema. Neurovascularly intact NEUROLOGICAL: Alert and oriented x4. SKIN: Warm, dry, no laceration, no petechiae, no rashes or lesions. a/p 1. AFib with RVR -plan is to transfer to [facility] for Cardiology. Likely needs a pacemaker 2. Chronic kidney, on hemodialysis Monday -continue to transfer for dialysis [id number] Dr[facility] at [facility] accepts patient <Tigre Chilel MD - Last Filed: 10/19/21 03:42> Critical Care Time Attestation: Critical Care Time 35 minutes: Critical care time is separate from other billable procedures. This critical care time includes consultation with family and other consulting doctors, review of records, and interpretation of data from labs, EKGs, imaging, etc. Discharge Plan Departure Patient Disposition: [facility] Clinical Impression: Chronic renal failure, stage 4 (severe), Atrial fibrillation with rapid ventricular response Prescriptions: No Action furosemide 20 mg tablet 20 mg PO QDAY PRN (Reason: Edema) Qty: 30 Rx Instructions: Take 1 tablet by moth tiwce a day as needed melatonin 5 mg capsule 3 mg PO PRN PRN (Reason: Insomnia) metoprolol succinate 100 mg tablet extended release 24 hr 1 tab PO BID Label Comments: Take 1 tablet by mouth twice a day carvedilol 25 mg Tablet 25 mg PO BID losartan 100 mg PO DAILY [id number] Tablet 1 tab PO DAILY guaifenesin 400 mg tablet 400 mg PO TID PRN (Reason: cough) Qty: 20 0RF allopurinol 100 mg tablet 300 mg PO DAILY biotin 2,500 mcg capsule 5 mg PO DAILY warfarin 5 mg tablet 5 mg PO DAILY Rx Instructions: takes in PM prednisone 5 mg tablet 10 mg PO DAILY levothyroxine 25 mcg tablet 50 mcg PO DAILY dorzolamide-timolol 22.3-6.8 mg/mL drops 1 drop EYE-BOTH BID Alphagan P 0.1 % drops 1 drp EYE-BOTH BID Referrals: Jorge L Dietz MD [Primary Care Provider] -
[2021-10-12 19:42] LABS: INR 1.1 (0.9-1.3); Prothrombin Time 12.2 SECONDS (10.1-12.7)
[2021-10-12 19:43] LABS: Add Manual Diff / Slide Review NO; Basophils Absolute Auto 0 /uL (0-100); Basophils Percent Auto 0.5 % (0-2); Eosinophils Absolute Auto 0 /uL (0-450); Eosinophils Percent Auto 0.1 % (2-4); Hematocrit 35.2 % (36-46); Hemoglobin 11.4 g/dL (12.0-16.0); Lymphocytes Absolute Auto 1200 /uL (1100-4500); Mean Corpuscular HGB Conc 32.3 % (30-36); Mean Corpuscular Hemoglobin 32.2 PG (26-34); Mean Corpuscular Volume 99.5 fL (80-100); Monocytes Absolute Auto 400 /uL (0-900); Monocytes Percent Auto 4.4 % (3-14); Neutrophils Absolute Auto 7900 /uL (1500-7000); Platelet Count 164 X10^3/uL (150-400); Red Blood Cell Count 3.54 X10^6/uL (4.0-5.2); Red Cell Distribution Width 15.8 % (11.6-14.8); White Blood Cell Count 9.6 X10^3/uL (4.5-11.0)
[2021-10-12 19:50] LABS: Alanine Aminotransferase 45 IU/L (<35); Albumin 4.2 g/dL (3.5-5.0); Albumin Globulin Ratio 1.6 (1.0-2.8); Alkaline Phosphatase 71 U/L (38-126); Aspartate Aminotransferase 38 IU/L (14-36); BUN Creatinine Ratio 13.3 (6-22); Bilirubin Total 0.8 mg/dL (0.2-1.3); Blood Urea Nitrogen 38 mg/dL (7-17); Calcium 8.4 mg/dL (8.4-10.2); Carbon Dioxide 25 mmol/L (22-32); Chloride 96 mmol/L (98-107); Estimated Glomerular Filt Rate 16 mL/min (>60); Globulin 2.7 g/dL (1.7-4.1); Glucose 128 mg/dL (80-110); HEMOLYSIS < 15 (0-50); Sodium 133 mmol/L (137-145); Total Protein 6.9 g/dL (6.3-8.2)
[2021-10-12 20:16] LABS: NT-proBNP (BNP-Adult 18+) 42200 pg/mL (<450)
--- NOTE | 2021-10-12 20:25 | DI.RAD.S_ITS ---
PROCEDURE: XR CHEST 1V INDICATIONS: afib/SOB TECHNIQUE: One view of the chest was acquired. COMPARISON: [facility], CR, XR CHEST 2V, 03/19/2020, 15:21. . [facility], CR, XR CHEST 1 VIEW, 09/05/2021, 0:01. [facility], CR, XR CHEST 1V, 09/18/2021, 16:01. FINDINGS: Surgical changes and devices: None. Lungs and pleura: There is mild interstitial prominence which appears unchanged. No acute consolidation. No pleural effusions or pneumothorax. Mediastinum: Mediastinal contours are unchanged. Heart size is enlarged. Bones and chest wall: No suspicious bony lesions. Overlying soft tissues appear unremarkable. IMPRESSION: 1. No definite acute cardiopulmonary disease. 2. Mild interstitial prominence likely representing chronic changes redemonstrated. Dictated by: Eric Baker M.D. on 10/12/2021 at 21:17 Approved by: Eric Baker M.D. on 10/12/2021 at 21:21
[2021-10-12] MEDS: dilTIAZem 5 MG/ML SDV 10 MG IV (20:53)
[2021-10-12] MEDS: DILTIAZEM 125 MG/125 ML PIGGYBACK IV (20:54)
[2021-10-12 20:57] LABS: Creatine Kinase 77 U/L (30-135)
[2021-10-12 21:09] LABS: Troponin I 0.048 ng/mL (0.01-0.034)
[2021-10-13] VITALS (144 sets, daily range): BP systolic 117–178; BP diastolic 68–120; PULSE 80–146; RESP 16–50; O2SAT 91–98
[2021-10-13] MEDS: AMIODARONE 150 MG/100 ML PIGGYBACK 600 MG IV (02:10)
[2021-10-13] MEDS: AMIODARONE 360 MG/200 ML PIGGYBACK 33.33 MG IV (02:22)
[2021-10-13 08:05] LABS: COVID19 -Nasal RAPID Negative (Negative)
[2021-10-13] MEDS: AMIODARONE 540 MG/300 ML PIGGYBACK 16.7 MG IV (08:17)
[2021-10-13] MEDS: predniSONE 20 MG TABLET 10 MG PO (09:50)
[2021-10-13] MEDS: BRIMONIDINE 0.2% OPHTH 5 ML 1 DROPS EYE-BOTH ×2 (09:50→21:45)
[2021-10-13] MEDS: DORZOLAMIDE/TIMOLOL OPHTH 10 ML 1 DROPS EYE-BOTH ×2 (09:50→21:45)
[2021-10-13] MEDS: FUROSEMIDE 20 MG TABLET PO (09:51)
[2021-10-13] MEDS: allopurinoL 300 MG TABLET PO (09:51)
--- NOTE | 2021-10-13 12:12 | PC.NURSE ---
Dr. Chilel asked me to place this patient on hospital transfer lists at 1110. I called [facility] at 1116 and placed this patient on the list. I called [facility] at 1123 and placed this patient on the list. I called [facility] at 1128 and placed this patient on their list. I called [facility] at 1151 and left a message. I received a return call at 1210 and placed this patient on their list.
--- NOTE | 2021-10-13 13:56 | PC.NURSE ---
Cutter Hand Elma at [facility] asked that we consult with the cardiac and nephrology. I placed the call to Dr. Sapp at 1325 for consult and connected the providers. I placed a call to Dr. Lou [phone] for consult and connected the providers.
[2021-10-13] MEDS: WARFARIN 5 MG TABLET PO (17:05)
[2021-10-14] VITALS (80 sets, daily range): BP systolic 113–191; BP diastolic 76–110; PULSE 95–149; RESP 19–36; TEMP 36.5; O2SAT 90–98
[2021-10-14] MEDS: AMIODARONE 200 MG TABLET 400 MG PO ×2 (05:22→19:06)
[2021-10-14 06:11] LABS: Add Manual Diff / Slide Review NO; Basophils Absolute Auto 100 /uL (0-100); Basophils Percent Auto 0.6 % (0-2); Eosinophils Absolute Auto 100 /uL (0-450); Eosinophils Percent Auto 0.6 % (2-4); Hematocrit 33.7 % (36-46); Hemoglobin 11.2 g/dL (12.0-16.0); Lymphocytes Absolute Auto 2800 /uL (1100-4500); Lymphocytes Percent Auto 29.1 % (25-40); Mean Corpuscular HGB Conc 33.1 % (30-36); Mean Corpuscular Hemoglobin 32.5 PG (26-34); Mean Corpuscular Volume 98.1 fL (80-100); Monocytes Absolute Auto 900 /uL (0-900); Monocytes Percent Auto 9.3 % (3-14); Neutrophils Absolute Auto 5800 /uL (1500-7000); Neutrophils Percent Auto 60.4 % (50-75); Platelet Count 152 X10^3/uL (150-400); Red Blood Cell Count 3.43 X10^6/uL (4.0-5.2); Red Cell Distribution Width 15.7 % (11.6-14.8); White Blood Cell Count 9.6 X10^3/uL (4.5-11.0)
[2021-10-14 06:21] LABS: Alanine Aminotransferase 45 IU/L (<35); Albumin 3.8 g/dL (3.5-5.0); Albumin Globulin Ratio 1.7 (1.0-2.8); Alkaline Phosphatase 62 U/L (38-126); Aspartate Aminotransferase 33 IU/L (14-36); BUN Creatinine Ratio 13.6 (6-22); Bilirubin Total 0.4 mg/dL (0.2-1.3); Blood Urea Nitrogen 60 mg/dL (7-17); Calcium 8.7 mg/dL (8.4-10.2); Carbon Dioxide 23 mmol/L (22-32); Chloride 93 mmol/L (98-107); Estimated Glomerular Filt Rate 10 mL/min (>60); Globulin 2.3 g/dL (1.7-4.1); Glucose 101 mg/dL (80-110); HEMOLYSIS < 15 (0-50); Potassium 4.3 mmol/L (3.4-5.1); Sodium 127 mmol/L (137-145); Total Protein 6.1 g/dL (6.3-8.2)
[2021-10-14 08:17] LABS: INR 1.2 (0.9-1.3); Prothrombin Time 13.3 SECONDS (10.1-12.7)
--- NOTE | 2021-10-14 10:15 | PC.NURSE ---
Pt is sleeping, no morning medications given
[2021-10-14] MEDS: LEVOTHYROXINE 50 MCG TABLET PO (11:27)
[2021-10-14] MEDS: BRIMONIDINE 0.2% OPHTH 5 ML 1 DROPS EYE-BOTH ×2 (11:27→21:24)
[2021-10-14] MEDS: DORZOLAMIDE/TIMOLOL OPHTH 10 ML 1 DROPS EYE-BOTH ×2 (11:28→21:16)
[2021-10-14] MEDS: allopurinoL 300 MG TABLET PO (11:53)
[2021-10-14] MEDS: predniSONE 20 MG TABLET 10 MG PO (11:53)
[2021-10-14] MEDS: WARFARIN 5 MG TABLET PO (19:02)
--- NOTE | 2021-10-14 19:16 | PC.NURSE ---
av fistula right arm + thrill +bruit
[2021-10-15] VITALS (38 sets, daily range): BP systolic 129–177; BP diastolic 72–94; PULSE 78–113; RESP 18–71; O2SAT 92–99
[2021-10-15] MEDS: carvediloL 12.5 MG TABLET 25 MG PO ×3 (00:35→21:08)
[2021-10-15] MEDS: LEVOTHYROXINE 50 MCG TABLET PO (08:40)
[2021-10-15] MEDS: predniSONE 20 MG TABLET 10 MG PO (08:40)
[2021-10-15 09:34] LABS: Add Manual Diff / Slide Review NO; Basophils Absolute Auto 100 /uL (0-100); Basophils Percent Auto 1.2 % (0-2); Eosinophils Absolute Auto 100 /uL (0-450); Eosinophils Percent Auto 0.7 % (2-4); Hematocrit 34.6 % (36-46); Hemoglobin 11.3 g/dL (12.0-16.0); Lymphocytes Absolute Auto 2500 /uL (1100-4500); Mean Corpuscular HGB Conc 32.6 % (30-36); Mean Corpuscular Hemoglobin 32.4 PG (26-34); Mean Corpuscular Volume 99.4 fL (80-100); Monocytes Absolute Auto 800 /uL (0-900); Neutrophils Absolute Auto 5800 /uL (1500-7000); Neutrophils Percent Auto 62.1 % (50-75); Platelet Count 152 X10^3/uL (150-400); Red Blood Cell Count 3.48 X10^6/uL (4.0-5.2); Red Cell Distribution Width 15.6 % (11.6-14.8); White Blood Cell Count 9.4 X10^3/uL (4.5-11.0)
[2021-10-15 09:41] LABS: INR 1.2 (0.9-1.3); Prothrombin Time 13.2 SECONDS (10.1-12.7)
[2021-10-15 09:46] LABS: Alanine Aminotransferase 34 IU/L (<35); Albumin 3.8 g/dL (3.5-5.0); Albumin Globulin Ratio 1.5 (1.0-2.8); Alkaline Phosphatase 67 U/L (38-126); Aspartate Aminotransferase 21 IU/L (14-36); BUN Creatinine Ratio 13.4 (6-22); Bilirubin Total 0.5 mg/dL (0.2-1.3); Blood Urea Nitrogen 69 mg/dL (7-17); Calcium 8.8 mg/dL (8.4-10.2); Carbon Dioxide 22 mmol/L (22-32); Chloride 94 mmol/L (98-107); Estimated Glomerular Filt Rate 8 mL/min (>60); Globulin 2.5 g/dL (1.7-4.1); Glucose 106 mg/dL (80-110); HEMOLYSIS < 15 (0-50); Potassium 4.3 mmol/L (3.4-5.1); Sodium 128 mmol/L (137-145); Total Protein 6.3 g/dL (6.3-8.2)
[2021-10-15] MEDS: allopurinoL 300 MG TABLET PO (10:44)
[2021-10-15] MEDS: AMIODARONE 200 MG TABLET 400 MG PO ×2 (10:45→17:17)
[2021-10-15] MEDS: DORZOLAMIDE/TIMOLOL OPHTH 10 ML 1 DROPS EYE-BOTH ×2 (10:46→21:08)
[2021-10-15] MEDS: BRIMONIDINE 0.2% OPHTH 5 ML 1 DROPS EYE-BOTH ×2 (10:46→21:59)
[2021-10-15] MEDS: predniSONE 20 MG TABLET PO (11:14)
[2021-10-15] MEDS: FAMOTIDINE 20 MG/2 ML VIAL IV (11:14)
[2021-10-15] MEDS: WARFARIN 5 MG TABLET PO (17:17)
--- NOTE | 2021-10-16 09:07 | PC.NURSE ---
Patient had left her silver cane in the ER. I called her emergency contact Chasity in [place] and she will be coming to case picker the cane. I informed her it will be out at the registration ER desk.
== END 2021-10-15 22:10 | disposition short-term general hospital (02) ==
PROVIDERS: Emergency Medicine; Emergency Provider Emergency Medicine; Family Provider Family Medicine; PCP Family Medicine
DX: N18.4 Chronic kidney disease, stage 4 (severe) (principal); Z99.2 Dependence on renal dialysis; I48.91 Unspecified atrial fibrillation; Z79.01 Long term (current) use of anticoagulants; Z86.16 Personal history of COVID-19; Z20.822 Contact with and (suspected) exposure to COVID-19
CPT/HCPCS: 36415; 71045; 80053; 82550; 83880; 84484; 85025; 85610; 87635; 93005; 96365; 96366; 96367; 96375; 99284; 99285; 99291; C9803; J0282

== ENCOUNTER 2021-10-30 13:45 | Emergency (ER) | payer MEDICARE, OTHER, SELFPAY ==
[2021-10-30] VITALS (24 sets, daily range): BP systolic 179–233; BP diastolic 76–101; PULSE 50–70; RESP 16–47; TEMP 36.7; O2SAT 93–99; BMI 29.0
--- NOTE | 2021-10-30 13:53 | DI.RAD.S_ITS ---
PROCEDURE: XR CHEST 1V INDICATIONS: fall, trauma, preop TECHNIQUE: One view of the chest was acquired. COMPARISON: [facility], CR, XR CHEST 1V, 10/12/2021, 20:27. FINDINGS: Surgical changes and devices: None. Lungs and pleura: Lungs are clear. No pleural effusions or pneumothorax. Mediastinum: Heart size enlarged. Atherosclerotic vascular calcification noted in the aortic arch. No vascular congestion present. Bones and chest wall: No suspicious bony lesions. Overlying soft tissues appear unremarkable. IMPRESSION: Cardiomegaly without vascular congestion Approved by: Jovan Holcomb M.D. on 10/30/2021 at 17:21
[2021-10-30 14:05] LABS: Add Manual Diff / Slide Review NO; Basophils Absolute Auto 100 /uL (0-100); Basophils Percent Auto 0.8 % (0-2); Eosinophils Absolute Auto 100 /uL (0-450); Eosinophils Percent Auto 0.8 % (2-4); Hematocrit 33.9 % (36-46); Hemoglobin 11.1 g/dL (12.0-16.0); Lymphocytes Absolute Auto 2800 /uL (1100-4500); Lymphocytes Percent Auto 20.2 % (25-40); Mean Corpuscular HGB Conc 32.8 % (30-36); Mean Corpuscular Hemoglobin 32.2 PG (26-34); Mean Corpuscular Volume 98.3 fL (80-100); Monocytes Absolute Auto 1200 /uL (0-900); Monocytes Percent Auto 8.8 % (3-14); Neutrophils Absolute Auto 9600 /uL (1500-7000); Neutrophils Percent Auto 69.4 % (50-75); Platelet Count 158 X10^3/uL (150-400); Red Blood Cell Count 3.45 X10^6/uL (4.0-5.2); Red Cell Distribution Width 15.6 % (11.6-14.8); White Blood Cell Count 13.9 X10^3/uL (4.5-11.0)
--- NOTE | 2021-10-30 14:09 | ED_ITS ---
HPI - Chest Pain General Chief Complaint: Chest Pain Stated Complaint: Chest Pain Time Seen by Provider: 10/30/21 13:52 Source: patient Mode of arrival: EMS Limitations: no limitations History of Present Illness HPI narrative: 81F nonsmoker with history of HTN, COVID, end stage renal with HD on ,,Sa presents from dialysis after developing chest pain about intermediate through her regularly scheduled dialysis session today. It was retrostenal and heavy in nature. Her pain was relieved with nitro on scene she arrives asymptomatically. She is not dizzy nor weak or lightheaded. She denies any shortness of breath. She denies any fever chills. She had recently been in our emergency department under relatively similar circumstances, however at that time she had a rapid atrial fibrillation associated with her chest pressure, she was in our emergency department for multiple days before finally being transferred to [facility] for definitive care. She had received cardiology consultation, hemodialysis and ev en a DAREN cardioversion. She is been taking her medications as directed and denies any alterations. Related Data Home Medications Medication Instructions Recorded Confirmed dorzolamide 22.3 mg-timolol 6.8 1 drop EYE-BOTH BID 10/12/17 10/13/21 mg/mL eye drops biotin 2,500 mcg capsule 5 mg PO DAILY 03/04/19 08/14/21 allopurinol 100 mg tablet 300 mg PO DAILY 09/25/19 10/13/21 furosemide 20 mg tablet 20 mg PO QDAY PRN Edema #30 tabs 09/25/19 08/14/21 warfarin 5 mg tablet 5 mg PO DAILY 12/16/20 10/13/21 brimonidine 0.1 % eye drops 1 drp EYE-BOTH BID 06/14/21 10/13/21 (Alphagan P) levothyroxine 25 mcg tablet 50 mcg PO DAILY 06/14/21 10/13/21 melatonin 5 mg capsule 3 mg PO PRN PRN Insomnia 06/14/21 08/14/21 prednisone 5 mg tablet 10 mg PO DAILY 06/14/21 10/13/21 yehtpqp-syrxvbzuy-jkrw tablet 1 tab PO DAILY 08/14/21 08/14/21 metoprolol succinate 100 mg 1 tab PO BID 09/18/21 09/18/21 tablet,extended release 24 hr carvedilol 25 mg tablet 25 mg PO BID 10/13/21 10/13/21 losartan 100 mg PO DAILY 10/13/21 10/13/21 Previous Rx's Medication Instructions Recorded guaifenesin 400 mg tablet 400 mg PO TID PRN cough #20 tabs 08/14/21 Allergies Allergy/AdvReac Type Severity Reaction Status Date / Time codeine [CODEINE] Allergy Severe ANAPHYLACTI Verified 10/30/21 13:54 C peanut [PEANUT] Allergy Severe ANAPHYLACTI Verified 10/30/21 13:54 C propofol AdvReac hallucinations, Verified 10/30/21 13:54 confusion Review of Systems Review of Systems Narrative: GENERAL: Denies chills, fatigue, malaise, fever, sweats. HEENT: Denies sinus pain, ear pain, sore throat, difficulty swallowing, dizziness. RESPIRATORY: Denies dyspnea, cough, wheezing, hemoptysis, sputum. CARDIOVASCULAR: See HPI GASTROINTESTINAL: Denies nausea, vomiting, abdominal pain, diarrhea, constipation, melena. : Denies dysuria, frequency, incontinence, hematuria, urinary retention. MUSCULOSKELETAL: denies weakness, joint pain, or bony pain SKIN: Denies rash, skin lesions, or other NEUROLOGIC: Denies weakness, headache, numbness, change in speech, confusion, seizures, incoordination. PSYCHIATRIC: No concerning psychosocial issues. 12 point review of systems is negative except for those stated above Patient History Medical History Atrial fibrillation Chronic anticoagulation Foraminal stenosis of lumbar region Gastroesophageal reflux disease Gout Hypertension Surgical History H/O tubal ligation History of cardiac radiofrequency ablation Hx of cholecystectomy Hx of tonsillectomy Family History Mother Lung cancer Social History Smoking Status: Never smoker Smoking Status: Never smoker alcohol intake frequency: holidays/special occasions only Substance Use Type: does not use Exam Narrative Exam Narrative: GENERAL: [81] year old patient appears stated age. Well-developed patient, in mild distress. HEAD: Atraumatic. Normocephalic. EYES: Pupils equal round and reactive. Extraocular motions intact. No scleral icterus. No injection or drainage. ENT: Nose without bleeding, purulent drainage. Throat without erythema, tonsillar hypertrophy or exudate. Airway patent. NECK: Trachea midline. Non tender CARDIOVASCULAR: Regular rate and rhythm without murmurs, gallops, or rubs. RESPIRATORY: Clear to auscultation. Breath sounds equal bilaterally. No wheezes, rales, or rhonchi. GASTROINTESTINAL: Abdomen soft, non-tender, nondistended. EXTREMITIES: No edema or joint tenderness. BACK: Nontender without deformity or crepitance. No flank tenderness. NEURO: AOx3. SKIN: No rash or erythema of visible areas Initial Vital Signs Initial Vital Signs: Vital Signs Temperature 98.0 F 10/30/21 13:50 Pulse Rate 70 10/30/21 13:50 Respiratory Rate 21 10/30/21 13:50 Blood Pressure 219/101 H 10/30/21 13:50 Pulse Oximetry 98 10/30/21 13:50 Oxygen Delivery Method 10/30/21 13:50 Course Orders Ordered: Discontinued Medications Nitroglycerin (Nitroglycerin 0.4 Mg Sl Tab) 0.4 mg SL [id number] PRN PRN Reason: Chest Pain Last Admin: 10/30/21 16:12 Dose: 0.4 mg Documented By: Admin: 10/30/21 16:02 Dose: 0.4 mg Documented By: Admin: 10/30/21 15:37 Dose: 0.4 mg Documented By: NR Reevaluation(s) Reevaluation #1: Patient's blood pressure is significantly elevated, she is given nitro and pain improves and blood pressure drops into the 160s. Vital Signs Vital signs: Vital Signs - 8 hr 10/30/21 13:50 10/30/21 13:50 10/30/21 13:52 Temperature 98.0 F Pulse Rate 70 70 Respiratory Rate 21 Blood Pressure 219/101 H 219/101 H Pulse Oximetry 98 98 Oxygen Delivery Method Room Air 10/30/21 13:52 10/30/21 14:00 10/30/21 14:30 Temperature Pulse Rate 69 52 L 52 L Respiratory Rate 18 18 Blood Pressure Pulse Oximetry 98 98 98 Oxygen Delivery Method 10/30/21 15:00 10/30/21 15:37 10/30/21 15:17 Temperature Pulse Rate 53 L 53 L Respiratory Rate 24 Blood Pressure 215/99 H 233/100 H Pulse Oximetry 97 Oxygen Delivery Method 10/30/21 15:33 10/30/21 15:35 10/30/21 15:35 Temperature Pulse Rate 54 L 53 L Respiratory Rate 21 Blood Pressure 215/99 H Pulse Oximetry 99 98 Oxygen Delivery Method 10/30/21 16:02 10/30/21 16:12 10/30/21 16:00 Temperature Pulse Rate 52 L 52 L 51 L Respiratory Rate 16 Blood Pressure 190/87 H 179/76 H Pulse Oximetry 98 Oxygen Delivery Method 10/30/21 16:01 10/30/21 16:01 10/30/21 16:13 Temperature Pulse Rate 51 L Respiratory Rate 23 Blood Pressure 190/87 H 179/76 H Pulse Oximetry 97 Oxygen Delivery Method 10/30/21 16:13 10/30/21 16:30 10/30/21 16:31 Temperature Pulse Rate 52 L 50 L Respiratory Rate 26 H 17 Blood Pressure 179/79 H Pulse Oximetry 95 93 Oxygen Delivery Method 10/30/21 16:31 10/30/21 17:00 10/30/21 17:01 Temperature Pulse Rate 50 L 51 L Respiratory Rate 18 17 Blood Pressure 202/88 H Pulse Oximetry 94 96 Oxygen Delivery Method 10/30/21 17:01 10/30/21 17:30 10/30/21 17:31 Temperature Pulse Rate 52 L 52 L 52 L Respiratory Rate 47 H 16 18 Blood Pressure Pulse Oximetry 96 97 98 Oxygen Delivery Method 10/30/21 17:31 Temperature Pulse Rate Respiratory Rate Blood Pressure 212/90 H Pulse Oximetry Oxygen Delivery Method MDM - Chest Pain Lab Data Result diagrams: 10/30/21 13:00 10/30/21 13:00 Labs: Lab Results 10/30/21 10/30/21 10/30/21 Range/Units 13:00 13:00 15:14 WBC 13.9 H (4.5-11.0) X10^3/uL RBC 3.45 L (4.0-5.2) X10^6/uL Hgb 11.1 L (12.0-16.0) g/dL Hct 33.9 L (36-46) % MCV 98.3 (80-100) fL MCH 32.2 (26-34) PG MCHC 32.8 (30-36) % RDW 15.6 H (11.6-14.8) % Plt Count 158 (150-400) X10^3/uL Neut % (Auto) 69.4 (50-75) % Lymph % (Auto) 20.2 L (25-40) % [place] % (Auto) 8.8 (3-14) % Eos % (Auto) 0.8 L (2-4) % Baso % (Auto) 0.8 (0-2) % Neut # (Auto) 9600 H (2660-8020) /uL Lymph # (Auto) 2800 (0720-4907) /uL [place] # (Auto) 1200 H (0-900) /uL Eos # (Auto) 100 (0-450) /uL Baso # (Auto) 100 (0-100) /uL Sodium 135 L (137-145) mmol/L Potassium 3.3 L (3.4-5.1) mmol/L Chloride 97 L (98-107) mmol/L Carbon Dioxide 29 (22-32) mmol/L BUN 22 H (7-17) mg/dL Creatinine 2.27 H (0.52-1.04) mg/dL Estimated GFR 21 L (>60) mL/min BUN/Creatinine Ratio 9.7 (6-22) Glucose 91 (80-110) mg/dL Calcium 8.1 L (8.4-10.2) mg/dL Total Bilirubin 0.7 (0.2-1.3) mg/dL AST 18 (14-36) IU/L ALT 18 (<35) IU/L Alkaline Phosphatase 55 (38-126) U/L Total Creatine Kinase 32 33 (30-135) U/L CK-MB (CK-2) TNP TNP CK-MB (CK-2) Rel Index TNP TNP Troponin I 0.039 H 0.036 H (0.01-0.034) ng/mL NT-Pro-B Natriuret Pep 14226 H (<450) pg/mL Total Protein 6.1 L (6.3-8.2) g/dL Albumin 3.6 (3.5-5.0) g/dL Globulin 2.5 (1.7-4.1) g/dL Albumin/Globulin Ratio 1.4 (1.0-2.8) Imaging Data Chest x-ray: Radiologist's Impression: Clementina Roque?(Christine)??81??F??1940 ? Allergy/Adv: codeine, peanut, propofol (More??) Close Chest X-Ray (Signed) ZhangJovan - 10/30/21 Chest X-Ray (Signed) BakerEric espinal - 10/12/21 Chest CTA (Signed) Lisa Salmon - 09/18/21 Vascular Ultrasound (Signed) Lisa Salmon - 09/18/21 Chest X-Ray (Signed) Tan Banegas - 09/18/21 Chest X-Ray (Signed) Tan Banegas - 09/13/21 Chest X-Ray (Signed) Ezra Gutierrez - 08/14/21 Injection Lumbar, Sacrum (Signed) Sergio Cuba - 07/15/21 Lumbar Spine MRI (Signed) HolcombJovan - 04/20/21 Hip MRI (Signed) Clyde Woo - 04/20/21 Lumbar Spine X-Ray (Signed) Espinoza Westbrook - 04/13/21 Hip X-Ray (Signed) Julian Magallanes - 04/13/21 Abdomen/Pelvis CT (Signed) Clyde Woo - 01/05/21 Lumbar Spine MRI (Signed) Sergio Cuba - 12/31/20 Radiology Report (Cancelled) Jorge L Lu - 12/21/20 Myocardial Perfusion Scan Nuc Med (Signed) Jorge L Lu - 12/21/20 Echocardiogram Ultrasound (Signed) Harrison Williamson - 12/21/20 Ribs X-Ray (Signed) Espinoza Westbrook - 10/21/20 Lumbar Spine X-Ray (Signed) Espinoza Westbrook - 10/21/[address] (Signed) Espinoza [place]brook - 10/21/20 Chest X-Ray (Signed) Stan Vann - 03/19/20 Foot X-Ray (Signed) Joe Seymour - 12/30/[address] (Signed) Stan Vann - 10/30/19 Telemetry Strips 10/30/19 Injection Lumbar, Sacrum (Signed) Stan Vann - 08/20/19 Facet Joint Injection X-Ray (Signed) Stan Vann - 04/05/19 Injection Lumbar, Sacrum (Signed) Amari Palma - 02/19/19 Facet Joint Injection X-Ray (Signed) Amari Palma - 12/18/18 Renal Ultrasound (Signed) Stan Vann - 07/30/18 Telemetry Strips 04/06/18 Foot X-Ray (Signed) Stan Vann - 03/28/18 Injection Lumbar, Sacrum (Signed) LionJoe - 11/28/17 Telemetry Strips 02/07/17 Launch?Image [address] [address] XRay Report Signed Patient: Clementina Roque MR#: [id number] : 1940 Acct:[id number] Age/Sex: 81 / F Date of Service: 10/30/21 Loc: ED Accession Number: [id number] ?? Procedure: XR chest 1V Ordering Provider: Ej Hinkle D.O. PROCEDURE:? XR CHEST 1V ? INDICATIONS:? fall, trauma, preop ? TECHNIQUE:? One view of the chest was acquired.? ? COMPARISON:? [facility], , XR CHEST 1V, 10/12/2021, 20:27. ? FINDINGS:? ? Surgical changes and devices:? None.? ? Lungs and pleura:? Lungs are clear.? No pleural effusions or pneumothorax.? ? Mediastinum:? Heart size enlarged. Atherosclerotic vascular calcification noted in the aortic arch.? No vascular congestion present. ? Bones and chest wall:? No suspicious bony lesions.? Overlying soft tissues appear unremarkable.? ? IMPRESSION:? Cardiomegaly without vascular congestion ? ? ? Approved by: Jovan Holcomb M.D. on 10/30/2021 at 17:21? Discharge Plan Departure Patient Disposition: Home Clinical Impression: Chest pain, atypical, HTN (hypertension) Instructions: High Blood Pressure, DI for Atypical Chest Pain Activity Restrictions/Additional Instructions: *You have been diagnosed with [chest pain, possibly related to elevated blood pressure. I discussed with on-call cardiology who sure the opinion that your appropriate for discharge and close follow-up. Based on your history and physical exam as well as labs, EKG and imaging it seems very unlikely that today's episode was related to a heart attack, blood clot or other specific diagnosis that would require immediate intervention] *What to do: *Please continue to take your regular medications as directed. [ ] New medication prescriptions sent to your pharmacy: [ ] [ ] New medication written as a paper prescription [ ] No new medications given *Please follow up with your primary care provider in 2-3 days, call for an appointment. Let them know you were seen in the Emergency Department and that we ask that you be seen in follow up. We will electronically transmit a record of today's note if your PCP is in our system *If you do not have a primary care provider please contact the [facility] Resource line at [phone]. They will ask some questions about your medical history and help get you set up with a doctor in the community. *Return to Emergency Department if you should have any new, worsening or concerning symptoms, such as [fever greater than 101 F, shaking chills, worsening pain, persistent vomiting or other bothersome symptoms] Prescriptions: No Action furosemide 20 mg tablet 20 mg PO QDAY PRN (Reason: Edema) Qty: 30 Rx Instructions: Take 1 tablet by moth tiwce a day as needed melatonin 5 mg capsule 3 mg PO PRN PRN (Reason: Insomnia) metoprolol succinate 100 mg tablet extended release 24 hr 1 tab PO BID Label Comments: Take 1 tablet by mouth twice a day carvedilol 25 mg Tablet 25 mg PO BID losartan 100 mg PO DAILY [id number] Tablet 1 tab PO DAILY guaifenesin 400 mg tablet 400 mg PO TID PRN (Reason: cough) Qty: 20 0RF allopurinol 100 mg tablet 300 mg PO DAILY biotin 2,500 mcg capsule 5 mg PO DAILY warfarin 5 mg tablet 5 mg PO DAILY Rx Instructions: takes in PM prednisone 5 mg tablet 10 mg PO DAILY levothyroxine 25 mcg tablet 50 mcg PO DAILY dorzolamide-timolol 22.3-6.8 mg/mL drops 1 drop EYE-BOTH BID Alphagan P 0.1 % drops 1 drp EYE-BOTH BID Referrals: Jorge L Dietz MD [Primary Care Provider] - Visit Report Forms: Patient Portal/API
[2021-10-30 14:15] LABS: Alanine Aminotransferase 18 IU/L (<35); Albumin 3.6 g/dL (3.5-5.0); Albumin Globulin Ratio 1.4 (1.0-2.8); Alkaline Phosphatase 55 U/L (38-126); Aspartate Aminotransferase 18 IU/L (14-36); BUN Creatinine Ratio 9.7 (6-22); Bilirubin Total 0.7 mg/dL (0.2-1.3); Blood Urea Nitrogen 22 mg/dL (7-17); Calcium 8.1 mg/dL (8.4-10.2); Carbon Dioxide 29 mmol/L (22-32); Chloride 97 mmol/L (98-107); Creatine Kinase 32 U/L (30-135); Estimated Glomerular Filt Rate 21 mL/min (>60); Globulin 2.5 g/dL (1.7-4.1); Glucose 91 mg/dL (80-110); HEMOLYSIS < 15 (0-50); Potassium 3.3 mmol/L (3.4-5.1); Sodium 135 mmol/L (137-145); Total Protein 6.1 g/dL (6.3-8.2)
[2021-10-30 14:26] LABS: NT-proBNP (BNP-Adult 18+) 33400 pg/mL (<450); Troponin I 0.039 ng/mL (0.01-0.034)
[2021-10-30 15:33] LABS: Creatine Kinase 33 U/L (30-135)
[2021-10-30] MEDS: NITROGLYCERIN 0.4 MG SL TAB SL ×3 (15:37→16:12)
[2021-10-30 15:46] LABS: Troponin I 0.036 ng/mL (0.01-0.034)
== END 2021-10-30 18:46 | disposition home or self-care (01) ==
PROVIDERS: Emergency Provider Emergency Medicine; Family Provider Family Medicine; PCP Family Medicine
DX: R07.89 Other chest pain (principal); I10 Essential (primary) hypertension
CPT/HCPCS: 36415; 71045; 80053; 82550; 83880; 84484; 85025; 93005; 93010; 99283; 99284

== ENCOUNTER → 2022-05-05 11:47 | Outpatient (ROUT) | payer MEDICARE, OTHER, SELFPAY ==
[2022-05-05 12:47] LABS: COVID-19 CEPHEID PCR (VTM/NP) Negative (Negative)
== END ==
PROVIDERS: Family Provider Family Medicine; PCP Family Medicine; Visit Provider Family Medicine
DX: R05.9 Cough, unspecified (principal)
CPT/HCPCS: U0003; U0005

== ENCOUNTER 2022-05-29 20:38 | Emergency (ER) | payer MEDICARE, OTHER, SELFPAY ==
[2022-05-29] VITALS (13 sets, daily range): BP systolic 169–177; BP diastolic 76–110; PULSE 81–128; RESP 20–24; TEMP 36.5; O2SAT 96–99; BMI 29.8
--- NOTE | 2022-05-29 20:55 | DI.CT.S_ITS ---
PROCEDURE: CT HEAD/BRAIN WO CON INDICATIONS: dizzy TECHNIQUE: Noncontrast 4.5 mm thick angled axial sections acquired from the foramen magnum to the vertex, with coronal and sagittal reformats. For radiation dose reduction, the following was used: automated exposure control, adjustment of mA and/or kV according to patient size. COMPARISON: [facility], CT, CT HEAD/BRAIN WO CON, 10/21/2020, 17:00. FINDINGS: Image quality: Excellent. CSF spaces: Basal cisterns are patent. No extra-axial fluid collections. There is mild to moderate cerebral volume loss, with resultant ventricular and sulcal prominence. Brain: No intracranial hemorrhage, mass, or mass effect. There are subcortical, periventricular and deep white matter hypodensities consistent with mild chronic small vessel ischemic changes. The gamez-white matter junction appears preserved. There is intracranial internal carotid artery atherosclerosis. Skull and face: Calvarium and visualized facial bones appear intact, without suspicious lesions. Sinuses: Visualized sinuses and mastoids are clear. IMPRESSION: 1. No acute intracranial abnormality. 2. Mild to moderate cerebral volume loss and mild chronic white matter small vessel ischemic changes. Dictated by: Eric Baker M.D. on 05/29/2022 at 21:37 Approved by: Eric Baker M.D. on 05/29/2022 at 21:38
--- NOTE | 2022-05-29 20:55 | DI.RAD.S_ITS ---
PROCEDURE: XR CHEST 1V INDICATIONS: dizzy, tachycardia TECHNIQUE: One view of the chest was acquired. COMPARISON: Merged With [facility], CR, XR CHEST 1V, 10/30/2021, 14:05. FINDINGS: Surgical changes and devices: An electronic device again projects over the left hemithorax. Lungs and pleura: No definite acute consolidation. No pleural effusions or pneumothorax. Mediastinum: Mediastinal contours appear unchanged. Heart size is enlarged. Bones and chest wall: No suspicious bony lesions. Overlying soft tissues appear unremarkable. IMPRESSION: 1. Cardiomegaly redemonstrated without definite acute cardiopulmonary disease. Dictated by: Eric Baker M.D. on 05/29/2022 at 22:07 Approved by: Eric Baker M.D. on 05/29/2022 at 22:08
[2022-05-29] MEDS: SODIUM CHLORIDE 0.9% 1,000 ML 150 ML IV (20:58)
[2022-05-29 21:26] LABS: Add Manual Diff / Slide Review NO; Basophils Absolute Auto 0 /uL (0-100); Basophils Percent Auto 0.3 % (0-2); Eosinophils Absolute Auto 0 /uL (0-450); Eosinophils Percent Auto 0.2 % (2-4); Hematocrit 33.1 % (36-46); Lymphocytes Absolute Auto 700 /uL (1100-4500); Lymphocytes Percent Auto 5.4 % (25-40); Mean Corpuscular HGB Conc 33.1 % (30-36); Mean Corpuscular Hemoglobin 33.1 PG (26-34); Mean Corpuscular Volume 100.1 fL (80-100); Monocytes Absolute Auto 400 /uL (0-900); Monocytes Percent Auto 3.1 % (3-14); Neutrophils Absolute Auto 12200 /uL (1500-7000); Platelet Count 219 X10^3/uL (150-400); Red Blood Cell Count 3.31 X10^6/uL (4.0-5.2); Red Cell Distribution Width 15.7 % (11.6-14.8); White Blood Cell Count 13.4 X10^3/uL (4.5-11.0)
[2022-05-29 21:31] LABS: Potassium 4.5 mmol/L (3.4-5.1)
[2022-05-29 21:32] LABS: Alanine Aminotransferase 44 IU/L (<35); Albumin 4.1 g/dL (3.5-5.0); Albumin Globulin Ratio 1.5 (1.0-2.8); Alkaline Phosphatase 61 U/L (38-126); Aspartate Aminotransferase 35 IU/L (14-36); BUN Creatinine Ratio 12.5 (6-22); Bilirubin Total 0.8 mg/dL (0.2-1.3); Blood Urea Nitrogen 63 mg/dL (7-17); Calcium 9.6 mg/dL (8.4-10.2); Carbon Dioxide 27 mmol/L (22-32); Chloride 94 mmol/L (98-107); Creatine Kinase 52 U/L (30-135); Estimated Glomerular Filt Rate 8 mL/min (>60); Globulin 2.7 g/dL (1.7-4.1); Glucose 154 mg/dL (80-110); HEMOLYSIS 39 (0-50); Sodium 133 mmol/L (137-145); Total Protein 6.8 g/dL (6.3-8.2)
[2022-05-29 21:43] LABS: NT-proBNP (BNP-Adult 18+) 11300 pg/mL (<450); Troponin I < 0.012 ng/mL (0.01-0.034)
[2022-05-29 22:17] LABS: INR 1.3 (0.9-1.3); Prothrombin Time 14.5 SECONDS (10.1-12.7)
--- NOTE | 2022-05-29 22:29 | ED.DIZZY ---
HPI - Dizziness <Ej Hinkle, DO - Last Filed: 05/31/22 13:58> General Chief Complaint: Dizziness Stated Complaint: Light Headed Time Seen by Provider: 05/29/22 20:47 Source: patient and EMS Mode of arrival: EMS History of Present Illness HPI Narrative: 81-year-old female nonsmoker with history of hypertension, COVID, end-stage renal disease with hemodialysis on Monday, and Monday presents with a chief complaint of some blurred vision since yesterday and they occasional sensation of palpitations. She feels a bit fatigued but denies any chest pain. She does feel on occasion dizzy. She is had no nausea or vomiting and denies any diarrhea. She is no dysuria, frequency or urgency. She denies fever or chills. She does have a history of atrial fibrillation but frequently can not tell when her heart is going fast. She states that she is been having trouble with her Coumadin and reports that relatively recently it was too high so she had been told to skip at least a few doses. Patient does state that she just started taking Neurontin yesterday Related Data Home Medications Medication Instructions Recorded Confirmed dorzolamide 22.3 mg-timolol 6.8 1 drop EYE-BOTH BID 10/12/17 05/30/22 mg/mL eye drops biotin 2,500 mcg capsule 5 mg PO DAILY 03/04/19 05/30/22 allopurinol 100 mg tablet 300 mg PO DAILY 09/25/19 05/30/22 warfarin 5 mg tablet See Rx Instructions .Route .COMPLEX 12/16/20 05/30/22 prednisone 5 mg tablet 10 mg PO DAILY 06/14/21 05/30/22 brimonidine 0.1 % eye drops 1 drp ophthalmic (eye) BID 05/30/22 05/30/22 (Alphagan P) calcium carbonate 500 mg capsule 500 mg PO DAILY 05/30/22 05/30/22 diltiazem HCl 120 mg 120 mg PO DAILY 05/30/22 05/30/22 capsule,extended release 12 hr furosemide 20 mg tablet See Rx Instructions .Route 05/30/22 05/30/22 .COMPLEX PRN Edema gabapentin 100 mg capsule 100 mg PO 1XD 05/30/22 05/30/22 hydralazine 10 mg tablet 10 mg PO TID 05/30/22 05/30/22 isosorbide mononitrate 30 mg 30 mg PO DAILY 05/30/22 05/30/22 tablet,extended release 24 hr levothyroxine 50 mcg tablet 75 mcg PO DAILY 05/30/22 05/30/22 losartan 100 mg tablet 100 mg PO DAILY 05/30/22 05/30/22 omeprazole 40 mg capsule,delayed 40 mg PO DAILY 05/30/22 05/30/22 release sevelamer HCl 800 mg tablet 800 mg PO TID 05/30/22 05/30/22 Allergies Allergy/AdvReac Type Severity Reaction Status Date / Time codeine [CODEINE] Allergy Severe ANAPHYLACTI Verified 11/13/21 09:32 C peanut [PEANUT] Allergy Severe ANAPHYLACTI Verified 11/13/21 09:32 C propofol AdvReac hallucinations, Verified 11/13/21 09:32 confusion Review of Systems <Ej Hinkle DO - Last Filed: 05/31/22 13:58> Review of Systems Narrative: GENERAL: Denies chills, fatigue, malaise, fever, sweats. HEENT: See HPI RESPIRATORY: See HPI CARDIOVASCULAR: Denies chest pain, palpitations, orthopnea, edema, GASTROINTESTINAL: Denies nausea, vomiting, abdominal pain, diarrhea, constipation, melena. : Denies dysuria, frequency, incontinence, hematuria, urinary retention. MUSCULOSKELETAL: denies weakness, joint pain, or bony pain SKIN: Denies rash, skin lesions, or other NEUROLOGIC: See HPI PSYCHIATRIC: No concerning psychosocial issues. 12 point review of systems is negative except for those stated above Patient History <Ej Hinkle DO - Last Filed: 05/31/22 13:58> Medical History (Updated 05/30/22 @ 10:37 by Jose Kinney DO) Atrial fibrillation Chronic anticoagulation Foraminal stenosis of lumbar region Gastroesophageal reflux disease Gout Hypertension Surgical History H/O tubal ligation History of cardiac radiofrequency ablation Hx of cholecystectomy Hx of tonsillectomy Family History Mother Lung cancer Social History Smoking Status: Never smoker Smoking Status: Never smoker alcohol intake frequency: holidays/special occasions only Substance Use Type: does not use Exam <Ej Hinkle DO - Last Filed: 05/31/22 13:58> Narrative Exam Narrative: GENERAL: [81] year old patient appears stated age. Well-developed patient, in mild distress. HEAD: Atraumatic. Normocephalic. EYES: Pupils equal round and reactive. Extraocular motions intact. No scleral icterus. No injection or drainage. ENT: Nose without bleeding, purulent drainage. Throat without erythema, tonsillar hypertrophy or exudate. Airway patent. NECK: Trachea midline. Non tender CARDIOVASCULAR: tachycardic and irregular rhythm without murmurs, gallops, or rubs. RESPIRATORY: Clear to auscultation. Breath sounds equal bilaterally. No wheezes, rales, or rhonchi. GASTROINTESTINAL: Abdomen soft, non-tender, nondistended. EXTREMITIES: No edema or joint tenderness. BACK: Nontender without deformity or crepitance. No flank tenderness. NEURO: AOx3. SKIN: No rash or erythema of visible areas NIH Stroke Scale 1a. LOC: Patient is alert and keenly responsive (0) 1b. LOC Questions: Patient answers both LOC questions accurately (0) 1c. LOC Commands: Patient performs both tasks correctly (0) 2. Best Gaze: Normal (0) 3. Visual: No visual loss (0) 4. Facial palsy: Normal symmetrical movements (0) 5. Motor arm: No drift (0) 6. Motor leg: No drift (0) 7. Limb ataxia: Absent (0) 8. Sensory: Normal (0) 9. Best language: No aphasia; normal (0) 10. Dysarthria: Normal (0) 11. Extinction and inattention: No abnormality (0) NIHSS: 0 Initial Vital Signs Initial Vital Signs: Vital Signs Temperature 97.7 F 05/29/22 20:45 Pulse Rate 125 H 05/29/22 20:45 Respiratory Rate 20 05/29/22 20:45 Blood Pressure 173/91 H 05/29/22 20:45 Pulse Oximetry 97 05/29/22 20:45 Oxygen Delivery Method Room Air 05/29/22 20:45 <Jose Kinney DO - Last Filed: 05/30/22 10:38> Initial Vital Signs Initial Vital Signs: Vital Signs Temperature 97.7 F 05/29/22 20:45 Pulse Rate 125 H 03/19/23 20:45 Respiratory Rate 20 05/29/22 20:45 Blood Pressure 173/91 H 05/29/22 20:45 Pulse Oximetry 97 05/29/22 20:45 Oxygen Delivery Method Room Air 05/29/22 20:45 Course <Ej Hinkle DO - Last Filed: 05/31/22 13:58> Orders Ordered: Discontinued Medications Diltiazem HCl (Diltiazem 5 Mg/Ml Sdv) 10 mg IV NOW ONE Stop: 05/29/22 23:10 Last Admin: 05/29/22 23:16 Dose: 10 mg Documented By: HILTON Diltiazem HCl (Diltiazem 30 Mg Tablet) 120 mg PO NOW ONE Stop: 05/30/22 08:50 Last Admin: 05/30/22 09:14 Dose: 120 mg Documented By: MISTY Sodium Chloride (Normal Saline 0.9%) 1,000 mls @ 150 mls/hr IV CONT AMMON Last Infusion: 05/30/22 04:33 Dose: 0 mls/hr Documented By: Admin: 05/29/22 20:58 Dose: 150 mls/hr Documented By: HILTON DILTIAZEM (Diltiazem 125 Mg/125 Ml-D5w) 125 mg in 125 mls @ 5 mls/hr IV TITRATE AMMON; Protocol Last Titration: 05/30/22 10:18 Dose: 0 mg/hr, 0 mls/hr Documented By: Titration: 05/30/22 09:15 Dose: 0 mg/hr, 0 mls/hr Documented By: Titration: 05/30/22 02:00 Dose: 10 mg/hr, 10 mls/hr Documented By: Admin: 05/30/22 00:30 Dose: 5 mg/hr, 5 mls/hr Documented By: HILTON Reevaluation(s) Reevaluation #1: Patient responds well to diltiazem 10 mg IV push and holds with a rate in the 80s for some time but is beginning to climb back over 100 Reevaluation #2: Patient tolerating diltiazem drip at 5 mg well, heart rate holding steady between 80 and 105 Vital Signs Vital signs: Vital Signs - 8 hr 05/30/22 02:45 05/30/22 02:45 05/30/22 03:15 Pulse Rate 92 H 86 Respiratory Rate 28 H Blood Pressure 145/71 H Pulse Oximetry 95 99 Oxygen Delivery Method 05/30/22 03:16 05/30/22 03:16 05/30/22 03:30 Pulse Rate 84 Respiratory Rate Blood Pressure 171/84 H 164/84 H Pulse Oximetry 98 Oxygen Delivery Method 05/30/22 03:30 05/30/22 03:45 05/30/22 03:45 Pulse Rate 77 74 Respiratory Rate Blood Pressure 188/79 H Pulse Oximetry 98 95 Oxygen Delivery Method 05/30/22 04:00 05/30/22 04:00 05/30/22 04:15 Pulse Rate 100 H 85 Respiratory Rate 20 31 H Blood Pressure 144/80 H Pulse Oximetry 97 95 Oxygen Delivery Method 05/30/22 04:15 05/30/22 04:30 05/30/22 04:34 Pulse Rate 82 100 H Respiratory Rate 25 H 35 H Blood Pressure 163/90 H Pulse Oximetry 96 98 Oxygen Delivery Method Room Air 05/30/22 04:34 05/30/22 04:45 05/30/22 04:45 Pulse Rate 80 Respiratory Rate 24 Blood Pressure 162/77 H 140/63 Pulse Oximetry 95 Oxygen Delivery Method Room Air 05/30/22 05:00 05/30/22 05:00 05/30/22 05:15 Pulse Rate 81 92 H Respiratory Rate 22 24 Blood Pressure 137/65 Pulse Oximetry 96 97 Oxygen Delivery Method Room Air 05/30/22 05:15 05/30/22 05:30 05/30/22 05:31 Pulse Rate 86 91 H Respiratory Rate 23 24 Blood Pressure 145/65 H Pulse Oximetry 97 97 Oxygen Delivery Method Room Air 05/30/22 05:31 05/30/22 05:45 05/30/22 05:45 Pulse Rate 98 H Respiratory Rate 27 H Blood Pressure 148/65 H 154/93 H Pulse Oximetry 97 Oxygen Delivery Method 05/30/22 06:00 05/30/22 06:00 05/30/22 06:15 Pulse Rate 109 H Respiratory Rate 34 H Blood Pressure 160/94 H 139/103 H Pulse Oximetry 97 Oxygen Delivery Method 05/30/22 06:15 05/30/22 06:39 05/30/22 07:00 Pulse Rate 120 H 128 H 109 H Respiratory Rate 20 Blood Pressure Pulse Oximetry 96 Oxygen Delivery Method 05/30/22 07:03 05/30/22 07:03 05/30/22 07:15 Pulse Rate 101 H 97 H Respiratory Rate 20 20 Blood Pressure 163/92 H Pulse Oximetry Oxygen Delivery Method 05/30/22 07:15 05/30/22 07:30 05/30/22 07:30 Pulse Rate 86 Respiratory Rate 17 Blood Pressure 172/81 H 160/111 H Pulse Oximetry Oxygen Delivery Method 05/30/22 07:45 05/30/22 07:45 05/30/22 08:00 Pulse Rate 80 Respiratory Rate 18 Blood Pressure 187/84 H 167/82 H Pulse Oximetry Oxygen Delivery Method 05/30/22 08:00 05/30/22 08:15 05/30/22 08:15 Pulse Rate 80 101 H Respiratory Rate 20 20 Blood Pressure 170/114 H Pulse Oximetry Oxygen Delivery Method 05/30/22 09:14 05/30/22 08:30 05/30/22 08:30 Pulse Rate 85 88 Respiratory Rate 18 Blood Pressure 174/78 H 181/95 H Pulse Oximetry Oxygen Delivery Method 05/30/22 08:45 05/30/22 08:45 05/30/22 09:00 Pulse Rate 88 85 Respiratory Rate 18 18 Blood Pressure 174/78 H Pulse Oximetry 97 99 Oxygen Delivery Method 05/30/22 09:30 05/30/22 10:00 05/30/22 10:09 Pulse Rate 79 77 90 Respiratory Rate 19 18 20 Blood Pressure Pulse Oximetry 96 98 98 Oxygen Delivery Method 05/30/22 10:10 05/30/22 10:34 Pulse Rate 85 Respiratory Rate 18 Blood Pressure 164/70 H 160/71 H Pulse Oximetry 98 Oxygen Delivery Method <Jose Kinney, DO - Last Filed: 05/30/22 10:38> Orders Ordered: Discontinued Medications Diltiazem HCl (Diltiazem 5 Mg/Ml Sdv) 10 mg IV NOW ONE Stop: 05/29/22 23:10 Last Admin: 05/29/22 23:16 Dose: 10 mg Documented By: SB Diltiazem HCl (Diltiazem 30 Mg Tablet) 120 mg PO NOW ONE Stop: 05/30/22 08:50 Last Admin: 05/30/22 09:14 Dose: 120 mg Documented By: KB Sodium Chloride (Normal Saline 0.9%) 1,000 mls @ 150 mls/hr IV CONT AMMON Last Infusion: 05/30/22 04:33 Dose: 0 mls/hr Documented By: Admin: 05/29/22 20:58 Dose: 150 mls/hr Documented By: HILTON DILTIAZEM (Diltiazem 125 Mg/125 Ml-D5w) 125 mg in 125 mls @ 5 mls/hr IV TITRATE AMMON; Protocol Last Titration: 05/30/22 10:18 Dose: 0 mg/hr, 0 mls/hr Documented By: Titration: 05/30/22 09:15 Dose: 0 mg/hr, 0 mls/hr Documented By: Titration: 05/30/22 02:00 Dose: 10 mg/hr, 10 mls/hr Documented By: Admin: 05/30/22 00:30 Dose: 5 mg/hr, 5 mls/hr Documented By: HILTON Vital Signs Vital signs: Vital Signs - 8 hr 05/30/22 02:45 05/30/22 02:45 05/30/22 03:15 Pulse Rate 92 H 86 Respiratory Rate 28 H Blood Pressure 145/71 H Pulse Oximetry 95 99 Oxygen Delivery Method 05/30/22 03:16 05/30/22 03:16 05/30/22 03:30 Pulse Rate 84 Respiratory Rate Blood Pressure 171/84 H 164/84 H Pulse Oximetry 98 Oxygen Delivery Method 05/30/22 03:30 05/30/22 03:45 05/30/22 03:45 Pulse Rate 77 74 Respiratory Rate Blood Pressure 188/79 H Pulse Oximetry 98 95 Oxygen Delivery Method 05/30/22 04:00 05/30/22 04:00 05/30/22 04:15 Pulse Rate 100 H 85 Respiratory Rate 20 31 H Blood Pressure 144/80 H Pulse Oximetry 97 95 Oxygen Delivery Method 05/30/22 04:15 05/30/22 04:30 05/30/22 04:34 Pulse Rate 82 100 H Respiratory Rate 25 H 35 H Blood Pressure 163/90 H Pulse Oximetry 96 98 Oxygen Delivery Method Room Air 05/30/22 04:34 05/30/22 04:45 05/30/22 04:45 Pulse Rate 80 Respiratory Rate 24 Blood Pressure 162/77 H 140/63 Pulse Oximetry 95 Oxygen Delivery Method Room Air 05/30/22 05:00 05/30/22 05:00 05/30/22 05:15 Pulse Rate 81 92 H Respiratory Rate 22 24 Blood Pressure 137/65 Pulse Oximetry 96 97 Oxygen Delivery Method Room Air 05/30/22 05:15 05/30/22 05:30 05/30/22 05:31 Pulse Rate 86 91 H Respiratory Rate 23 24 Blood Pressure 145/65 H Pulse Oximetry 97 97 Oxygen Delivery Method Room Air 05/30/22 05:31 05/30/22 05:45 05/30/22 05:45 Pulse Rate 98 H Respiratory Rate 27 H Blood Pressure 148/65 H 154/93 H Pulse Oximetry 97 Oxygen Delivery Method 05/30/22 06:00 05/30/22 06:00 05/30/22 06:15 Pulse Rate 109 H Respiratory Rate 34 H Blood Pressure 160/94 H 139/103 H Pulse Oximetry 97 Oxygen Delivery Method 05/30/22 06:15 05/30/22 06:39 05/30/22 07:00 Pulse Rate 120 H 128 H 109 H Respiratory Rate 20 Blood Pressure Pulse Oximetry 96 Oxygen Delivery Method 05/30/22 07:03 05/30/22 07:03 05/30/22 07:15 Pulse Rate 101 H 97 H Respiratory Rate 20 20 Blood Pressure 163/92 H Pulse Oximetry Oxygen Delivery Method 05/30/22 07:15 05/30/22 07:30 05/30/22 07:30 Pulse Rate 86 Respiratory Rate 17 Blood Pressure 172/81 H 160/111 H Pulse Oximetry Oxygen Delivery Method 05/30/22 07:45 05/30/22 07:45 05/30/22 08:00 Pulse Rate 80 Respiratory Rate 18 Blood Pressure 187/84 H 167/82 H Pulse Oximetry Oxygen Delivery Method 05/30/22 08:00 05/30/22 08:15 05/30/22 08:15 Pulse Rate 80 101 H Respiratory Rate 20 20 Blood Pressure 170/114 H Pulse Oximetry Oxygen Delivery Method 05/30/22 09:14 05/30/22 08:30 05/30/22 08:30 Pulse Rate 85 88 Respiratory Rate 18 Blood Pressure 174/78 H 181/95 H Pulse Oximetry Oxygen Delivery Method 05/30/22 08:45 05/30/22 08:45 05/30/22 09:00 Pulse Rate 88 85 Respiratory Rate 18 18 Blood Pressure 174/78 H Pulse Oximetry 97 99 Oxygen Delivery Method 05/30/22 09:30 05/30/22 10:00 05/30/22 10:09 Pulse Rate 79 77 90 Respiratory Rate 19 18 20 Blood Pressure Pulse Oximetry 96 98 98 Oxygen Delivery Method 05/30/22 10:10 05/30/22 10:34 Pulse Rate 85 Respiratory Rate 18 Blood Pressure 164/70 H 160/71 H Pulse Oximetry 98 Oxygen Delivery Method MDM - Dizziness <Ej Hinkle, DO - Last Filed: 05/31/22 13:58> Lab Data 05/30/22 08:50 05/30/22 08:50 Labs: Lab Results 05/29/22 05/29/22 05/29/22 Range/Units 21:09 21:09 22:04 WBC 13.4 H (4.5-11.0) X10^3/uL RBC 3.31 L (4.0-5.2) X10^6/uL Hgb 11.0 L (12.0-16.0) g/dL Hct 33.1 L (36-46) % MCV 100.1 H (80-100) fL MCH 33.1 (26-34) PG MCHC 33.1 (30-36) % RDW 15.7 H (11.6-14.8) % Plt Count 219 (150-400) X10^3/uL Neut % (Auto) 91.0 H (50-75) % Lymph % (Auto) 5.4 L (25-40) % [place] % (Auto) 3.1 (3-14) % Eos % (Auto) 0.2 L (2-4) % Baso % (Auto) 0.3 (0-2) % Neut # (Auto) 04826 H (4393-7084) /uL Lymph # (Auto) 700 L (1482-1101) /uL [place] # (Auto) 400 (0-900) /uL Eos # (Auto) 0 (0-450) /uL Baso # (Auto) 0 (0-100) /uL PT 14.5 H (10.1-12.7) SECONDS INR 1.3 (0.9-1.3) Sodium 133 L (137-145) mmol/L Potassium 4.5 (3.4-5.1) mmol/L Chloride 94 L (98-107) mmol/L Carbon Dioxide 27 (22-32) mmol/L BUN 63 H (7-17) mg/dL Creatinine 5.06 H (0.52-1.04) mg/dL Estimated GFR 8 L (>60) mL/min BUN/Creatinine Ratio 12.5 (6-22) Glucose 154 H (80-110) mg/dL Calcium 9.6 (8.4-10.2) mg/dL Total Bilirubin 0.8 (0.2-1.3) mg/dL AST 35 (14-36) IU/L ALT 44 H (<35) IU/L Alkaline Phosphatase 61 (38-126) U/L Total Creatine Kinase 52 (30-135) U/L CK-MB (CK-2) TNP CK-MB (CK-2) Rel Index TNP Troponin I < 0.012 (0.01-0.034) ng/mL NT-Pro-B Natriuret Pep 35571 H (<450) pg/mL Total Protein 6.8 (6.3-8.2) g/dL Albumin 4.1 (3.5-5.0) g/dL Globulin 2.7 (1.7-4.1) g/dL Albumin/Globulin Ratio 1.5 (1.0-2.8) 05/30/22 05/30/22 Range/Units 08:50 08:50 WBC 14.2 H (4.5-11.0) X10^3/uL RBC 3.05 L (4.0-5.2) X10^6/uL Hgb 10.0 L (12.0-16.0) g/dL Hct 31.0 L (36-46) % MCV 101.5 H (80-100) fL MCH 32.7 (26-34) PG MCHC 32.2 (30-36) % RDW 15.6 H (11.6-14.8) % Plt Count 200 (150-400) X10^3/uL Neut % (Auto) 79.9 H (50-75) % Lymph % (Auto) 12.9 L (25-40) % [place] % (Auto) 6.3 (3-14) % Eos % (Auto) 0.5 L (2-4) % Baso % (Auto) 0.4 (0-2) % Neut # (Auto) 24188 H (0331-8650) /uL Lymph # (Auto) 1800 (0034-4011) /uL [place] # (Auto) 900 (0-900) /uL Eos # (Auto) 100 (0-450) /uL Baso # (Auto) 100 (0-100) /uL PT (10.1-12.7) SECONDS INR (0.9-1.3) Sodium 135 L (137-145) mmol/L Potassium 4.2 (3.4-5.1) mmol/L Chloride 97 L (98-107) mmol/L Carbon Dioxide 25 (22-32) mmol/L BUN 72 H (7-17) mg/dL Creatinine 5.37 H (0.52-1.04) mg/dL Estimated GFR 8 L (>60) mL/min BUN/Creatinine Ratio 13.4 (6-22) Glucose 130 H (80-110) mg/dL Calcium 9.3 (8.4-10.2) mg/dL Total Bilirubin (0.2-1.3) mg/dL AST (14-36) IU/L ALT (<35) IU/L Alkaline Phosphatase (38-126) U/L Total Creatine Kinase 40 (30-135) U/L CK-MB (CK-2) TNP CK-MB (CK-2) Rel Index TNP Troponin I < 0.012 (0.01-0.034) ng/mL NT-Pro-B Natriuret Pep (<450) pg/mL Total Protein (6.3-8.2) g/dL Albumin (3.5-5.0) g/dL Globulin (1.7-4.1) g/dL Albumin/Globulin Ratio (1.0-2.8) MDM Narrative Medical decision making narrative: CC: 81F with dizziness and blurred vision Complicating co-morbidities: Age, AFib, dialysis Data collected from: Patient Medical records reviewed: Prior notes reviewed in our EMR Differential considered, but not limited to: Rapid AFib versus medication response from Neurontin versus stroke versus other Exam documented above, pertinent findings include: Tachycardic and irregular, nonlabored breathing, abdomen soft, no focal neurologic findings Lab Test results independently reviewed as above. Pertinent findings: Elevation of white blood cells at 13.4, slight left shift, no anemia, INR 1.3, electrolytes in normal range, creatinine 5.06 is near her baseline, BNP 31265 Independently reviewed EKG as above Imaging studies independently reviewed: Head CT with no acute process, chest x-ray demonstrates NAP Scores Used: NIHSS Treatments: Dilt push and drip Re-evaluations: HR improving Discussion: Patient reports dizziness and some blurring of vision in the absence of other neurologic symptoms. She did just start Neurontin yesterday and symptoms started soon after that which would suggest there maybe a temporal relationship between the 2, however she is in a rapid AFib in the 140s. She admittedly is not terribly sensitive to atrial fibrillation and during my discussion with her at the bedside her heart rate was 140 and she could not sense palpitations. She is not a candidate for cardioversion as she is not beein the patient will require transfer or for this reason. [facility] - wait list [facility] - wait list Prov - no beds VM - wait list [place] NO BEDS [place] NO BEDS [place] - did not call back <oJse Kinney DO - Last Filed: 05/30/22 10:38> Lab Data Labs: Lab Results 05/29/22 05/29/22 05/29/22 Range/Units 21:09 21:09 22:04 WBC 13.4 H (4.5-11.0) X10^3/uL RBC 3.31 L (4.0-5.2) X10^6/uL Hgb 11.0 L (12.0-16.0) g/dL Hct 33.1 L (36-46) % MCV 100.1 H (80-100) fL MCH 33.1 (26-34) PG MCHC 33.1 (30-36) % RDW 15.7 H (11.6-14.8) % Plt Count 219 (150-400) X10^3/uL Neut % (Auto) 91.0 H (50-75) % Lymph % (Auto) 5.4 L (25-40) % [place] % (Auto) 3.1 (3-14) % Eos % (Auto) 0.2 L (2-4) % Baso % (Auto) 0.3 (0-2) % Neut # (Auto) 55687 H (5414-7754) /uL Lymph # (Auto) 700 L (5782-4746) /uL [place] # (Auto) 400 (0-900) /uL Eos # (Auto) 0 (0-450) /uL Baso # (Auto) 0 (0-100) /uL PT 14.5 H (10.1-12.7) SECONDS INR 1.3 (0.9-1.3) Sodium 133 L (137-145) mmol/L Potassium 4.5 (3.4-5.1) mmol/L Chloride 94 L (98-107) mmol/L Carbon Dioxide 27 (22-32) mmol/L BUN 63 H (7-17) mg/dL Creatinine 5.06 H (0.52-1.04) mg/dL Estimated GFR 8 L (>60) mL/min BUN/Creatinine Ratio 12.5 (6-22) Glucose 154 H (80-110) mg/dL Calcium 9.6 (8.4-10.2) mg/dL Total Bilirubin 0.8 (0.2-1.3) mg/dL AST 35 (14-36) IU/L ALT 44 H (<35) IU/L Alkaline Phosphatase 61 (38-126) U/L Total Creatine Kinase 52 (30-135) U/L CK-MB (CK-2) TNP CK-MB (CK-2) Rel Index TNP Troponin I < 0.012 (0.01-0.034) ng/mL NT-Pro-B Natriuret Pep 21882 H (<450) pg/mL Total Protein 6.8 (6.3-8.2) g/dL Albumin 4.1 (3.5-5.0) g/dL Globulin 2.7 (1.7-4.1) g/dL Albumin/Globulin Ratio 1.5 (1.0-2.8) 05/30/22 05/30/22 Range/Units 08:50 08:50 WBC 14.2 H (4.5-11.0) X10^3/uL RBC 3.05 L (4.0-5.2) X10^6/uL Hgb 10.0 L (12.0-16.0) g/dL Hct 31.0 L (36-46) % MCV 101.5 H (80-100) fL MCH 32.7 (26-34) PG MCHC 32.2 (30-36) % RDW 15.6 H (11.6-14.8) % Plt Count 200 (150-400) X10^3/uL Neut % (Auto) 79.9 H (50-75) % Lymph % (Auto) 12.9 L (25-40) % [place] % (Auto) 6.3 (3-14) % Eos % (Auto) 0.5 L (2-4) % Baso % (Auto) 0.4 (0-2) % Neut # (Auto) 64536 H (4120-6022) /uL Lymph # (Auto) 1800 (7424-2820) /uL [place] # (Auto) 900 (0-900) /uL Eos # (Auto) 100 (0-450) /uL Baso # (Auto) 100 (0-100) /uL PT (10.1-12.7) SECONDS INR (0.9-1.3) Sodium 135 L (137-145) mmol/L Potassium 4.2 (3.4-5.1) mmol/L Chloride 97 L (98-107) mmol/L Carbon Dioxide 25 (22-32) mmol/L BUN 72 H (7-17) mg/dL Creatinine 5.37 H (0.52-1.04) mg/dL Estimated GFR 8 L (>60) mL/min BUN/Creatinine Ratio 13.4 (6-22) Glucose 130 H (80-110) mg/dL Calcium 9.3 (8.4-10.2) mg/dL Total Bilirubin (0.2-1.3) mg/dL AST (14-36) IU/L ALT (<35) IU/L Alkaline Phosphatase (38-126) U/L Total Creatine Kinase 40 (30-135) U/L CK-MB (CK-2) TNP CK-MB (CK-2) Rel Index TNP Troponin I < 0.012 (0.01-0.034) ng/mL NT-Pro-B Natriuret Pep (<450) pg/mL Total Protein (6.3-8.2) g/dL Albumin (3.5-5.0) g/dL Globulin (1.7-4.1) g/dL Albumin/Globulin Ratio (1.0-2.8) MDM Narrative Medical decision making narrative: CC: 81F with dizziness and blurred vision Complicating co-morbidities: Age, AFib, dialysis Data collected from: Patient Medical records reviewed: Prior notes reviewed in our EMR Differential considered, but not limited to: Rapid AFib versus medication response from Neurontin versus stroke versus other Exam documented above, pertinent findings include: Tachycardic and irregular, nonlabored breathing, abdomen soft, no focal neurologic findings Lab Test results independently reviewed as above. Pertinent findings: Elevation of white blood cells at 13.4, slight left shift, no anemia, INR 1.3, electrolytes in normal range, creatinine 5.06 is near her baseline, BNP 54583 Independently reviewed EKG as above Imaging studies independently reviewed: Head CT with no acute process, chest x-ray demonstrates NAP Scores Used: NIHSS Treatments: Dilt push and drip Re-evaluations: HR improving Discussion: Patient reports dizziness and some blurring of vision in the absence of other neurologic symptoms. She did just start Neurontin yesterday and symptoms started soon after that which would suggest there maybe a temporal relationship between the 2, however she is in a rapid AFib in the 140s. She admittedly is not terribly sensitive to atrial fibrillation and during my discussion with her at the bedside her heart rate was 140 and she could not sense palpitations. She is not a candidate for cardioversion as she is not beein the patient will require transfer or for this reason. [facility] - wait list [facility] - wait list Prov - no beds [facility] - wait list [place] NO BEDS [place] NO BEDS [place] - did not call back Dr Kinney: Received turned over. Reviewed patient's history and physical exam and workup up to this point. Patient has been rate controlled on a diltiazem drip. We did clarify her home medicines and she takes diltiazem at home. She was given a dose of her oral diltiazem in the drip was stopped. She maintained a rate in the 80s for greater than 1 hour. She ambulated around the emergency department with a walker without any issues. Patient is scheduled for dialysis tomorrow. She no longer feels lightheaded. Plan will be is to discharge patient home and will have her keep her dialysis tomorrow. She will continue to take all of her medications as directed. We will hold on any change to her anticoagulation. Discharge Plan Departure Patient Disposition: Home Clinical Impression: Atrial fibrillation with RVR, Vertigo Instructions: DI for Atrial Fibrillation Activity Restrictions/Additional Instructions: You were given your morning dose of diltiazem here in the emergency department so you will need to take the rest of your medications as directed. Keep all of your scheduled medical appointments to include your dialysis appointment tomorrow. Return to the emergency department for any new or worsening symptoms. Contact your primary doctor for a follow-up. Prescriptions: No Action diltiazem HCl 120 mg capsule,extended release 12 hr 120 mg PO DAILY Patient Comments: Take 1 by mouth once a day furosemide 20 mg tablet See Rx Instructions .ROUTE .COMPLEX PRN (Reason: Edema) Patient Comments: Take 2 tablet by mouth twice a day as needed Rx Instructions: 2 tabs prn 2 x day as needed for edema gabapentin 100 mg capsule 100 mg PO 1XD Patient Comments: Take 1 capsule (100 mg total) by mouth every night levothyroxine 50 mcg tablet 75 mcg PO DAILY Rx Instructions: 1.5 tabs (75 mcg daily) calcium carbonate 500 mg Capsule 500 mg PO DAILY isosorbide mononitrate 30 mg tablet extended release 24 hr 30 mg PO DAILY Patient Comments: Take 1 tablet by mouth once a day losartan 100 mg tablet 100 mg PO DAILY Patient Comments: Take 1 tablet by mouth once a day hydralazine 10 mg tablet 10 mg PO TID Patient Comments: TAKE ONE TABLET BY MOUTH THREE TIMES DAILY sevelamer HCl 800 mg tablet 800 mg PO TID Patient Comments: TAKE ONE TABLET BY MOUTH THREE TIMES DAILY WITH MEALS. SWALLOW TABLET WHOLE; DO NOT CRUSH, BREAK, OR CHEW. Rx Instructions: tid with meals omeprazole 40 mg capsule,delayed release(DR/EC) 40 mg PO DAILY Patient Comments: TAKE ONE CAPSULE BY MOUTH ONE TIME DAILY Alphagan P 0.1 % Drops 1 drp ophthalmic (eye) BID allopurinol 100 mg tablet 300 mg PO DAILY biotin 2,500 mcg capsule 5 mg PO DAILY warfarin 5 mg tablet See Rx Instructions .ROUTE .COMPLEX Rx Instructions: takes in PM 5 mg 6 days of week 7.5 mg 1 day of week prednisone 5 mg tablet 10 mg PO DAILY dorzolamide-timolol 22.3-6.8 mg/mL drops 1 drop EYE-BOTH BID Referrals: Jorge L Dietz MD [Primary Care Provider] - Stand Alone Forms: Patient Portal/API
[2022-05-29] MEDS: dilTIAZem 5 MG/ML SDV 10 MG IV (23:16)
--- NOTE | 2022-05-29 23:22 | PC.NURSE ---
Pt reports some improvement of her vision after 10mg of diltiazem administration per MAR.
[2022-05-30] VITALS (61 sets, daily range): BP systolic 125–190; BP diastolic 59–121; PULSE 74–130; RESP 15–57; O2SAT 94–99
[2022-05-30] MEDS: DILTIAZEM 125 MG/125 ML PIGGYBACK IV (00:30)
--- NOTE | 2022-05-30 05:53 | PC.NURSE ---
Pt on wait list with [facility], [facility], F/U with waitlists after shift change. all others had no beds / no waitlist
[2022-05-30 08:55] LABS: Add Manual Diff / Slide Review NO; Basophils Absolute Auto 100 /uL (0-100); Basophils Percent Auto 0.4 % (0-2); Eosinophils Absolute Auto 100 /uL (0-450); Eosinophils Percent Auto 0.5 % (2-4); Lymphocytes Absolute Auto 1800 /uL (1100-4500); Lymphocytes Percent Auto 12.9 % (25-40); Mean Corpuscular HGB Conc 32.2 % (30-36); Mean Corpuscular Hemoglobin 32.7 PG (26-34); Mean Corpuscular Volume 101.5 fL (80-100); Monocytes Absolute Auto 900 /uL (0-900); Monocytes Percent Auto 6.3 % (3-14); Neutrophils Absolute Auto 11300 /uL (1500-7000); Neutrophils Percent Auto 79.9 % (50-75); Platelet Count 200 X10^3/uL (150-400); Red Blood Cell Count 3.05 X10^6/uL (4.0-5.2); Red Cell Distribution Width 15.6 % (11.6-14.8); White Blood Cell Count 14.2 X10^3/uL (4.5-11.0)
[2022-05-30 09:12] LABS: BUN Creatinine Ratio 13.4 (6-22); Blood Urea Nitrogen 72 mg/dL (7-17); Calcium 9.3 mg/dL (8.4-10.2); Carbon Dioxide 25 mmol/L (22-32); Chloride 97 mmol/L (98-107); Creatine Kinase 40 U/L (30-135); Estimated Glomerular Filt Rate 8 mL/min (>60); Glucose 130 mg/dL (80-110); HEMOLYSIS < 15 (0-50); Potassium 4.2 mmol/L (3.4-5.1); Sodium 135 mmol/L (137-145)
[2022-05-30] MEDS: dilTIAZem 30 MG TABLET 120 MG PO (09:14)
[2022-05-30 09:36] LABS: Troponin I < 0.012 ng/mL (0.01-0.034)
== END 2022-05-30 10:52 | disposition home or self-care (01) ==
PROVIDERS: Emergency Medicine; Emergency Provider Emergency Medicine; Family Provider Family Medicine; PCP Family Medicine
DX: I48.20 Chronic atrial fibrillation, unspecified (principal); Z79.01 Long term (current) use of anticoagulants; R42 Dizziness and giddiness; Z79.899 Other long term (current) drug therapy
CPT/HCPCS: 36415; 70450; 71045; 80048; 80053; 82550; 83880; 84484; 85025; 85610; 93005; 93010; 96365; 96366; 96375; 99284

== ENCOUNTER 2022-05-31 19:01 | Emergency (ER) | payer MEDICARE, OTHER, SELFPAY ==
[2022-05-31] VITALS (11 sets, daily range): BP systolic 150–177; BP diastolic 70–94; PULSE 88–123; RESP 18–22; TEMP 36.6; O2SAT 96–99; BMI 29.8
--- NOTE | 2022-05-31 19:06 | DI.RAD.S_ITS ---
PROCEDURE: XR CHEST 1V INDICATIONS: fatigue, weakness TECHNIQUE: One view of the chest was acquired. COMPARISON: [facility], CR, XR CHEST 1V, 05/29/2022, 21:08. FINDINGS: Surgical changes and devices: An electronic device again projects over the left hemithorax. Lungs and pleura: Evaluation slightly limited by lordotic projection. There are left basilar retrocardiac opacities consistent with consolidation or atelectasis. No pleural effusions or pneumothorax. Mediastinum: Mediastinal contours appear normal. Heart size is enlarged. Bones and chest wall: No suspicious bony lesions. Overlying soft tissues appear unremarkable. IMPRESSION: 1. Left basilar retrocardiac opacities consistent with consolidation or atelectasis. Dictated by: Eric Baker M.D. on 05/31/2022 at 20:45 Approved by: Eric Baker M.D. on 05/31/2022 at 20:49
--- NOTE | 2022-05-31 19:25 | ED_ITS ---
HPI - Weakness General Chief complaint: Weakness Stated complaint: Dialysis, Weakness Time Seen by Provider: 05/31/22 19:06 Source: patient Mode of arrival: EMS History of Present Illness HPI Narrative: 81-year-old female nonsmoker with history of AFib on Coumadin, hypertension, chronic kidney disease with hemodialysis Monday, and Monday presents by EMS from the local dialysis center after completing a full run with a chief complaint of feeling a bit shaky and generalized weak. She had some pain in her left groin which seems to largely resolved prior to her arrival. She had relatively recently started Neurontin and was seen and evaluated yesterday for dizziness thought to be related both to the initiation of Neurontin and the fact that she was currently in rapid AFib. She was eventually discharged home and presents today under these circumstances as noted above. She has no fever or chills. She denies any chest pain, palpitations or shortness of breath. She denies nausea, vomiting or diarrhea. Related Data Home Medications Medication Instructions Recorded Confirmed dorzolamide 22.3 mg-timolol 6.8 1 drop EYE-BOTH BID 10/12/17 05/30/22 mg/mL eye drops biotin 2,500 mcg capsule 5 mg PO DAILY 03/04/19 05/30/22 allopurinol 100 mg tablet 300 mg PO DAILY 09/25/19 05/30/22 warfarin 5 mg tablet See Rx Instructions .Route .COMPLEX 12/16/20 05/30/22 prednisone 5 mg tablet 10 mg PO DAILY 06/14/21 05/30/22 brimonidine 0.1 % eye drops 1 drp ophthalmic (eye) BID 05/30/22 05/30/22 (Alphagan P) calcium carbonate 500 mg capsule 500 mg PO DAILY 05/30/22 05/30/22 diltiazem HCl 120 mg 120 mg PO DAILY 05/30/22 05/30/22 capsule,extended release 12 hr furosemide 20 mg tablet See Rx Instructions .Route 05/30/22 05/30/22 .COMPLEX PRN Edema gabapentin 100 mg capsule 100 mg PO 1XD 05/30/22 05/30/22 hydralazine 10 mg tablet 10 mg PO TID 05/30/22 05/30/22 isosorbide mononitrate 30 mg 30 mg PO DAILY 05/30/22 05/30/22 tablet,extended release 24 hr levothyroxine 50 mcg tablet 75 mcg PO DAILY 05/30/22 05/30/22 losartan 100 mg tablet 100 mg PO DAILY 05/30/22 05/30/22 omeprazole 40 mg capsule,delayed 40 mg PO DAILY 05/30/22 05/30/22 release sevelamer HCl 800 mg tablet 800 mg PO TID 05/30/22 05/30/22 Previous Rx's Medication Instructions Recorded diltiazem HCl 180 mg capsule,24 180 mg PO DAILY #30 caps 05/31/22 hr,extended release Allergies Allergy/AdvReac Type Severity Reaction Status Date / Time codeine [CODEINE] Allergy Severe ANAPHYLACTI Verified 05/31/22 19:10 C peanut [PEANUT] Allergy Severe ANAPHYLACTI Verified 05/31/22 19:10 C propofol AdvReac hallucinations, Verified 05/31/22 19:10 confusion Review of Systems Review of Systems Narrative: GENERAL: See HPI HEENT: Denies sinus pain, ear pain, sore throat, difficulty swallowing, dizziness. RESPIRATORY: Denies dyspnea, cough, wheezing, hemoptysis, sputum. CARDIOVASCULAR: See HPI GASTROINTESTINAL: Denies nausea, vomiting, abdominal pain, diarrhea, constipation, melena. : Denies dysuria, frequency, incontinence, hematuria, urinary retention. MUSCULOSKELETAL: denies weakness, joint pain, or bony pain SKIN: Denies rash, skin lesions, or other NEUROLOGIC: See HPI PSYCHIATRIC: No concerning psychosocial issues. 12 point review of systems is negative except for those stated above Patient History Medical History (Updated 05/31/22 @ 22:07 by Ej Hinkle DO) Atrial fibrillation Chronic anticoagulation Foraminal stenosis of lumbar region Gastroesophageal reflux disease Gout Hypertension Surgical History H/O tubal ligation History of cardiac radiofrequency ablation Hx of cholecystectomy Hx of tonsillectomy Family History Mother Lung cancer Social History Smoking Status: Never smoker Smoking Status: Never smoker alcohol intake frequency: holidays/special occasions only Substance Use Type: does not use Exam Narrative Exam Narrative: GENERAL: [81] year old patient appears stated age. Well-developed patient, in mild distress. HEAD: Atraumatic. Normocephalic. EYES: Pupils equal round and reactive. Extraocular motions intact. No scleral icterus. No injection or drainage. ENT: Nose without bleeding, purulent drainage. Throat without erythema, tonsi llar hypertrophy or exudate. Airway patent. NECK: Trachea midline. Non tender CARDIOVASCULAR: Regular rate and rhythm without murmurs, gallops, or rubs. RESPIRATORY: Clear to auscultation. Breath sounds equal bilaterally. No wheezes, rales, or rhonchi. GASTROINTESTINAL: Abdomen soft, non-tender, nondistended. EXTREMITIES: No edema or joint tenderness. BACK: Nontender without deformity or crepitance. No flank tenderness. NEURO: AOx3. SKIN: No rash or erythema of visible areas Initial Vital Signs Initial Vital Signs: Vital Signs Temperature 97.8 F 05/31/22 19:05 Pulse Rate 123 H 05/31/22 19:05 Respiratory Rate 18 05/31/22 19:05 Blood Pressure 171/94 H 05/31/22 19:05 Pulse Oximetry 98 05/31/22 19:05 Oxygen Delivery Method Room Air 05/31/22 19:05 Course Course Course Narrative: CC: 81-year-old female presents with generalized weakness Complicating co-morbidities: Age, hypertension, AFib, dialysis Data collected from: Patient Medical records reviewed: Prior notes reviewed in our EMR Differential considered, but not limited to: CHF, rapid AFib, electrolyte abnormality versus other Exam documented above, pertinent findings include: Heart rate irregular and rapid, no increased work of breathing, no wheezes, rales or rhonchi, abdomen soft. Lab Test results independently reviewed as above. Pertinent findings: Leukocytosis without left shift, H&H at her baseline, electrolytes and renal function at her baseline Independently reviewed EKG as above Imaging studies independently reviewed: Chest x-ray suggests infiltrate versus atelectasis. Consultations: Cardiology consultation as noted above Treatments: Diltiazem given twice Re-evaluations: Patient feeling significant improvement in requesting discharge Discussion: Patient returns to emergency department with vague generalized weakness complaints. She is found to be in rapid AFib again which improves with rate control and after consultation with Cardiology they request increasing her baseline daily oral Cardizem. She feels much better and is requesting discharge. We did discuss the chest x-ray finding which suggests infiltrate versus atelectasis. Patient states that she is sure she does not have pneumonia and would prefer not to start antibiotics right now. She denies any fever or productive cough and is having no shortness of breath. She understands that she will be increasing her Cardizem and is encouraged to follow closely with her primary care and Cardiology teams. Disposition: see below, along with detailed discharge instructions that have been reviewed with patient as well as indications for ED re-evaluation and additional outpatient follow up Orders Ordered: ED Orders 05/31/22 19:06 Chest [XR chest 1V] Stat Blood Culture Stat 05/31/22 19:30 Complete Blood Count AUTO DIFF Stat Comprehensive Metabolic Panel Stat Lactate (Lactic Acid) Stat Lipase Stat Magnesium Stat NT-proBNP (BNP-Adult 18+) Stat PHOS [Phosphorous] Stat PTT Partial Thromboplastin Navid Stat Prothrombin Time INR Stat Troponin & CK Cardiac Panel Stat Discontinued Medications Diltiazem HCl (Diltiazem 5 Mg/Ml Sdv) 10 mg IV NOW ONE Stop: 05/31/22 20:02 Last Admin: 05/31/22 20:24 Dose: 10 mg Documented By: FERMIN Diltiazem HCl (Diltiazem 5 Mg/Ml Sdv) 10 mg IV NOW ONE Stop: 05/31/22 22:04 Last Admin: 05/31/22 22:21 Dose: 10 mg Documented By: FERMIN Consultations Consultation #1: Discussed with on-call Cardiology, Dr. Barr, he recommends increasing Cardizem from 120-180 and follow up close with primary or Cardiology. Vital Signs Vital signs: Vital Signs - 8 hr 05/31/22 19:05 05/31/22 19:05 05/31/22 19:05 Temperature 97.8 F Pulse Rate 123 H 106 H Respiratory Rate 18 Blood Pressure 171/94 H 171/94 H Pulse Oximetry 98 99 Oxygen Delivery Method Room Air 05/31/22 19:30 05/31/22 20:00 05/31/22 20:29 Temperature Pulse Rate 108 H 108 H Respiratory Rate 21 20 Blood Pressure 150/75 H Pulse Oximetry 97 Oxygen Delivery Method 05/31/22 20:29 05/31/22 20:30 05/31/22 20:30 Temperature Pulse Rate 92 H 91 H Respiratory Rate 19 18 Blood Pressure 155/70 H Pulse Oximetry 98 98 Oxygen Delivery Method 05/31/22 21:00 05/31/22 21:00 05/31/22 21:30 Temperature Pulse Rate 93 H 88 Respiratory Rate 22 20 Blood Pressure 160/70 H Pulse Oximetry 97 98 Oxygen Delivery Method 05/31/22 21:31 05/31/22 21:31 05/31/22 22:00 Temperature Pulse Rate 98 H 106 H Respiratory Rate 20 19 Blood Pressure 177/77 H Pulse Oximetry 98 98 Oxygen Delivery Method 05/31/22 22:01 05/31/22 22:01 05/31/22 22:25 Temperature Pulse Rate 101 H 93 H Respiratory Rate 22 19 Blood Pressure 172/77 H 170/76 H Pulse Oximetry 96 98 Oxygen Delivery Method Room Air MDM - Weakness Lab Data 05/31/22 19:30 05/31/22 19:30 Labs: Lab Results 05/31/22 05/31/22 05/31/22 Range/Units 19:30 19:30 19:30 WBC 15.5 H (4.5-11.0) X10^3/uL RBC 3.11 L (4.0-5.2) X10^6/uL Hgb 10.3 L (12.0-16.0) g/dL Hct 31.3 L (36-46) % MCV 100.5 H (80-100) fL MCH 33.1 (26-34) PG MCHC 32.9 (30-36) % RDW 15.8 H (11.6-14.8) % Plt Count 191 (150-400) X10^3/uL Neut % (Auto) 76.7 H (50-75) % Lymph % (Auto) 16.1 L (25-40) % Garland % (Auto) 6.1 (3-14) % Eos % (Auto) 0.9 L (2-4) % Baso % (Auto) 0.2 (0-2) % Neut # (Auto) 06783 H (1036-7310) /uL Lymph # (Auto) 2500 (3910-1863) /uL Garland # (Auto) 900 (0-900) /uL Eos # (Auto) 100 (0-450) /uL Baso # (Auto) 0 (0-100) /uL PT 12.3 (10.1-12.7) SECONDS INR 1.1 (0.9-1.3) APTT 17 L (26-36) SECONDS Sodium 133 L (137-145) mmol/L Potassium 3.0 L D (3.4-5.1) mmol/L Chloride 90 L (98-107) mmol/L Carbon Dioxide 32 (22-32) mmol/L BUN 38 H (7-17) mg/dL Creatinine 3.09 H (0.52-1.04) mg/dL Estimated GFR 15 L (>60) mL/min BUN/Creatinine Ratio 12.3 (6-22) Glucose 115 H (80-110) mg/dL Lactate (0.7-2.1) mmol/L Calcium 8.7 (8.4-10.2) mg/dL Phosphorus 2.3 L (2.8-4.1) mg/dL Magnesium 1.9 (1.6-2.3) mg/dL Total Bilirubin 0.9 (0.2-1.3) mg/dL AST 33 (14-36) IU/L ALT 55 H (<35) IU/L Alkaline Phosphatase 65 (38-126) U/L Total Creatine Kinase 41 (30-135) U/L CK-MB (CK-2) TNP CK-MB (CK-2) Rel Index TNP Troponin I < 0.012 (0.01-0.034) ng/mL NT-Pro-B Natriuret Pep 88338 H (<450) pg/mL Total Protein 6.8 (6.3-8.2) g/dL Albumin 4.2 (3.5-5.0) g/dL Globulin 2.6 (1.7-4.1) g/dL Albumin/Globulin Ratio 1.6 (1.0-2.8) Lipase 339 H (23-300) U/L / Range/Units 19:30 WBC (4.5-11.0) X10^3/uL RBC (4.0-5.2) X10^6/uL Hgb (12.0-16.0) g/dL Hct (36-46) % MCV (80-100) fL MCH (26-34) PG MCHC (30-36) % RDW (11.6-14.8) % Plt Count (150-400) X10^3/uL Neut % (Auto) (50-75) % Lymph % (Auto) (25-40) % Garland % (Auto) (3-14) % Eos % (Auto) (2-4) % Baso % (Auto) (0-2) % Neut # (Auto) (1681-1230) /uL Lymph # (Auto) (4330-0215) /uL Garland # (Auto) (0-900) /uL Eos # (Auto) (0-450) /uL Baso # (Auto) (0-100) /uL PT (10.1-12.7) SECONDS INR (0.9-1.3) APTT (26-36) SECONDS Sodium (137-145) mmol/L Potassium (3.4-5.1) mmol/L Chloride (98-107) mmol/L Carbon Dioxide (22-32) mmol/L BUN (7-17) mg/dL Creatinine (0.52-1.04) mg/dL Estimated GFR (>60) mL/min BUN/Creatinine Ratio (6-22) Glucose (80-110) mg/dL Lactate 1.4 (0.7-2.1) mmol/L Calcium (8.4-10.2) mg/dL Phosphorus (2.8-4.1) mg/dL Magnesium (1.6-2.3) mg/dL Total Bilirubin (0.2-1.3) mg/dL AST (14-36) IU/L ALT (<35) IU/L Alkaline Phosphatase (38-126) U/L Total Creatine Kinase (30-135) U/L CK-MB (CK-2) CK-MB (CK-2) Rel Index Troponin I (0.01-0.034) ng/mL NT-Pro-B Natriuret Pep (<450) pg/mL Total Protein (6.3-8.2) g/dL Albumin (3.5-5.0) g/dL Globulin (1.7-4.1) g/dL Albumin/Globulin Ratio (1.0-2.8) Lipase (23-300) U/L Discharge Plan Departure Patient Disposition: Home Clinical Impression: Atrial fibrillation Instructions: Atrial Fibrillation Activity Restrictions/Additional Instructions: *You have been diagnosed with [atrial fibrillation] *What to do: *Please continue to take your regular medications as directed. [x ] New medication prescriptions sent to your pharmacy: [[facility] ] [ ] New medication written as a paper prescription [ ] No new medications given *Please follow up with your primary care provider in 2-3 days, call for an appointment. Let them know you were seen in the Emergency Department and that we ask that you be seen in follow up. We will electronically transmit a record of today's note if your PCP is in our system * as we discussed, per my conversation with Cardiology we have increased your daily dose of diltiazem from 120 to 180, [facility] Otherwise please continue to take your medications as directed *Return to Emergency Department if you should have any new, worsening or concerning symptoms, such as [fever greater than 101 F, shaking chills, worsening pain, persistent vomiting or other bothersome symptoms] Prescriptions: New diltiazem HCl 180 mg capsule,extended release 24 hr 180 mg PO DAILY Qty: 30 0RF No Action diltiazem HCl 120 mg capsule,extended release 12 hr 120 mg PO DAILY Patient Comments: Take 1 by mouth once a day furosemide 20 mg tablet See Rx Instructions .ROUTE .COMPLEX PRN (Reason: Edema) Patient Comments: Take 2 tablet by mouth twice a day as needed Rx Instructions: 2 tabs prn 2 x day as needed for edema gabapentin 100 mg capsule 100 mg PO 1XD Patient Comments: Take 1 capsule (100 mg total) by mouth every night levothyroxine 50 mcg tablet 75 mcg PO DAILY Rx Instructions: 1.5 tabs (75 mcg daily) calcium carbonate 500 mg Capsule 500 mg PO DAILY isosorbide mononitrate 30 mg tablet extended release 24 hr 30 mg PO DAILY Patient Comments: Take 1 tablet by mouth once a day losartan 100 mg tablet 100 mg PO DAILY Patient Comments: Take 1 tablet by mouth once a day hydralazine 10 mg tablet 10 mg PO TID Patient Comments: TAKE ONE TABLET BY MOUTH THREE TIMES DAILY sevelamer HCl 800 mg tablet 800 mg PO TID Patient Comments: TAKE ONE TABLET BY MOUTH THREE TIMES DAILY WITH MEALS. SWALLOW TABLET WHOLE; DO NOT CRUSH, BREAK, OR CHEW. Rx Instructions: tid with meals omeprazole 40 mg capsule,delayed release(DR/EC) 40 mg PO DAILY Patient Comments: TAKE ONE CAPSULE BY MOUTH ONE TIME DAILY Alphagan P 0.1 % Drops 1 drp ophthalmic (eye) BID allopurinol 100 mg tablet 300 mg PO DAILY biotin 2,500 mcg capsule 5 mg PO DAILY warfarin 5 mg tablet See Rx Instructions .ROUTE .COMPLEX Rx Instructions: takes in PM 5 mg 6 days of week 7.5 mg 1 day of week prednisone 5 mg tablet 10 mg PO DAILY dorzolamide-timolol 22.3-6.8 mg/mL drops 1 drop EYE-BOTH BID Referrals: Harrison Williamson MD [Physician] - Jorge L Dietz MD [Primary Care Provider] - Stand Alone Forms: Patient Portal/API
[2022-05-31 19:48] LABS: Add Manual Diff / Slide Review NO; Basophils Absolute Auto 0 /uL (0-100); Basophils Percent Auto 0.2 % (0-2); Eosinophils Absolute Auto 100 /uL (0-450); Eosinophils Percent Auto 0.9 % (2-4); Hematocrit 31.3 % (36-46); Hemoglobin 10.3 g/dL (12.0-16.0); Lymphocytes Absolute Auto 2500 /uL (1100-4500); Lymphocytes Percent Auto 16.1 % (25-40); Mean Corpuscular HGB Conc 32.9 % (30-36); Mean Corpuscular Hemoglobin 33.1 PG (26-34); Mean Corpuscular Volume 100.5 fL (80-100); Monocytes Absolute Auto 900 /uL (0-900); Monocytes Percent Auto 6.1 % (3-14); Neutrophils Absolute Auto 11900 /uL (1500-7000); Neutrophils Percent Auto 76.7 % (50-75); Platelet Count 191 X10^3/uL (150-400); Red Blood Cell Count 3.11 X10^6/uL (4.0-5.2); Red Cell Distribution Width 15.8 % (11.6-14.8); White Blood Cell Count 15.5 X10^3/uL (4.5-11.0)
[2022-05-31 19:58] LABS: INR 1.1 (0.9-1.3); Prothrombin Time 12.3 SECONDS (10.1-12.7)
[2022-05-31 20:03] LABS: Alanine Aminotransferase 55 IU/L (<35); Albumin 4.2 g/dL (3.5-5.0); Albumin Globulin Ratio 1.6 (1.0-2.8); Alkaline Phosphatase 65 U/L (38-126); Aspartate Aminotransferase 33 IU/L (14-36); BUN Creatinine Ratio 12.3 (6-22); Bilirubin Total 0.9 mg/dL (0.2-1.3); Blood Urea Nitrogen 38 mg/dL (7-17); Calcium 8.7 mg/dL (8.4-10.2); Carbon Dioxide 32 mmol/L (22-32); Chloride 90 mmol/L (98-107); Creatine Kinase 41 U/L (30-135); Estimated Glomerular Filt Rate 15 mL/min (>60); Globulin 2.6 g/dL (1.7-4.1); Glucose 115 mg/dL (80-110); HEMOLYSIS < 15 (0-50); Lactate (Lactic Acid) 1.4 mmol/L (0.7-2.1); Lipase 339 U/L (23-300); Magnesium 1.9 mg/dL (1.6-2.3); Phosphorous 2.3 mg/dL (2.8-4.1); Sodium 133 mmol/L (137-145); Total Protein 6.8 g/dL (6.3-8.2)
[2022-05-31 20:14] LABS: NT-proBNP (BNP-Adult 18+) 18100 pg/mL (<450); Troponin I < 0.012 ng/mL (0.01-0.034)
[2022-05-31 20:22] LABS: PTT Partial Thromboplastin Tim 17 SECONDS (26-36)
[2022-05-31] MEDS: dilTIAZem 5 MG/ML SDV 10 MG IV ×2 (20:24→22:21)
[2022-06-01 19:34] LABS: Enterococcus species Not Detected (Not Detect); Listeria monocytogenes Not Detected (Not Detect); Methicillin-resistant gene DETECTED (Not Detect); Staphylococcus species DETECTED (Not Detect)
[2022-06-01 19:35] LABS: Acinetobacter baumannii Not Detected (Not Detect); Candida albicans Not Detected (Not Detect); Candida glabrata Not Detected (Not Detect); Candida krusei Not Detected (Not Detect); E. coli Not Detected (Not Detect); Enterobacter cloacae complex Not Detected (Not Detect); Enterobacteriaceae species Not Detected (Not Detect); Haemophilus influenzae Not Detected (Not Detect); Neisseria meningitidis Not Detected (Not Detect); Proteus species Not Detected (Not Detect); Pseudomonas aeruginosa Not Detected (Not Detect); Serratia marcescens Not Detected (Not Detect); Streptococcus agalactiae (Gr B Not Detected (Not Detect); Streptococcus pneumonia Not Detected (Not Detect); Streptococcus pyogenes (Gr A) Not Detected (Not Detect); Streptococcus species Not Detected (Not Detect)
[2022-06-01 19:36] LABS: Candida parapsilosis Not Detected (Not Detect); Candida tropicalis Not Detected (Not Detect)
== END 2022-05-31 22:35 | disposition home or self-care (01) ==
PROVIDERS: Emergency Provider Emergency Medicine; Family Provider Family Medicine; PCP Family Medicine
DX: I48.91 Unspecified atrial fibrillation (principal); Z79.01 Long term (current) use of anticoagulants
CPT/HCPCS: 36415; 71045; 80053; 82550; 83605; 83690; 83735; 83880; 84100; 84484; 85025; 85610; 85730; 87040; 87150; 96374; 96376; 99284